=== PATIENT | male | born 1950 | race Caucasian/White ===

== ENCOUNTER → 2023-12-01 09:46 | Outpatient (REF) | payer MEDICARE, OTHER, SELFPAY | LOC: HWRAD 09:46 | PROVIDERS: ATTENDING PHYSICIAN Physician Assistant Medical; FAMILY PHYSICIAN Nurse Practitioner Adult Health; REFERRING PHYSICIAN Internal Medicine Gastroenterology | DX: Z86.010 Personal history of colon polyps (principal) | CPT/HCPCS: 74261 ==

== ENCOUNTER → 2024-02-09 09:05 | Outpatient (REF) | payer MEDICARE, OTHER, SELFPAY | LOC: HWRAD 09:05 | PROVIDERS: ATTENDING PHYSICIAN Nurse Practitioner Adult Health | DX: R91.1 Solitary pulmonary nodule (principal); J90 Pleural effusion, not elsewhere classified | CPT/HCPCS: 71260; Q9967 ==

== ENCOUNTER → 2024-02-13 13:39 | Outpatient (REF) | payer MEDICARE, OTHER, SELFPAY | LOC: RAD 13:39 | PROVIDERS: ATTENDING PHYSICIAN Surgery Vascular Surgery; FAMILY PHYSICIAN Family Medicine | DX: I73.9 Peripheral vascular disease, unspecified (principal); I65.23 Occlusion and stenosis of bilateral carotid arteries | CPT/HCPCS: 93880; 93922; 93925 ==

== ENCOUNTER → 2024-11-03 10:08 | Outpatient (REF) | payer MEDICARE, OTHER, SELFPAY ==
[2024-11-03 10:33] VITALS: BP 97/48; BP_SYST 66; BMI 31.7
[2024-11-03 11:40] LABS: Body Fluid Second Tech CF
== END ==
LOC: RADI 10:08
PROVIDERS: ATTENDING PHYSICIAN Internal Medicine Critical Care Medicine; FAMILY PHYSICIAN Student in an Organized Health Care Education/Training Program
DX: J90 Pleural effusion, not elsewhere classified (principal)
CPT/HCPCS: 32555; 71045; 82945; 83615; 84157; 87015; 87070; 87102; 87116; 87205; 87206; 88112; 88305; 89051

== ENCOUNTER 2024-11-12 01:36 | Inpatient (IN) | payer MEDICARE, OTHER, SELFPAY ==
[2024-11-11 23:49] VITALS: BP 90/53
[2024-11-11 23:51] VITALS: BP 90/53
[2024-11-12] VITALS (34 sets, daily range): BP systolic 83–108; BP diastolic 31–78; BMI 33.5; BMI 32.5
[2024-11-12] MEDS: PROTONIX IV 80 MG IV (00:11)
[2024-11-12] MEDS: PROTONIX 100 IV (00:12)
--- NOTE | 2024-11-12 00:18 | HPS.HSE ---
Family Physician
-
Family Physician: Shanel Mendenhall MD
Chief Complaint
-
No rectal bleeding
History of Present Illness
This is a 74-year-old male with past medical history significant CAD status post CABG and stenting on dual antiplatelet therapy, PAD status post left lower extremity stenting, V. tach on Amio and status post ICD, CHF with reduced EF, hypertension
presenting to the emergency department with 4 days of ongoing rectal bleeding.
Patient usually goes to [facility]. He reports that his been having intermittent bloody bowel movements over the last 3 to 4 days. He states that in particular today he had episode where he had large amounts of and tach red clots in his bowel
movement. Following that he had bright red blood per rectum while he was sitting on the commode. He denied any abdominal pain. He denies any nausea or vomiting. He has not been any recent melena. He denies any hematemesis. He denies history of
peptic ulcer disease. He denies history of lower GI bleed. He is on dual antiplatelet therapy but no other anticoagulation. Patient reported that he had a virtual colonoscopy about a year ago that was negative. He denies feeling dizzy or
lightheaded.
Reviewed the patient has been having a challenge with his respiratory status since his diagnosis for for pneumonia few months ago. He was at [facility] in August for pneumonia where he had a left lower lobe pneumonia associated with parapneumonic
effusion. He had a recent thoracentesis on the left with removal of noninfected fluid. Patient reports that he had about a 8 pound weight gain. He has been told during his recent cardiology visit that edema is likely secondary to pulmonary
insufficiency. Is former smoker quitting 30 years ago and never been diagnosed with COPD. He continues to have cough that is mostly nonproductive and was with supination. He denies dizziness or lightheadedness. He reports that his baseline blood
pressure also is usually in the 88-95 systolic.
Initial vital signs in the ED shows a blood pressure of 97/54, pulse rate of 65 and was satting 95% on room air.
Medical History
Past Medical History
Past Medical History: Reports Other
Additional Past Medical History:
hypertension
hyperlipidemia
type II diabetic mellitus
prostate cancer
Ventricular arrhythmia status post ICD
CAD status post AK, status post CABG x3
CHF with depressed EF
Past Surgical History: Reports Cardiac (CABG x 3, ICD implantation), Tonsilectomy and Other
Additional Past Surgical History:
left femoral endarterectomy with kissing bilateral iliac artery stents ()
Social History
Tobacco: Former Smoker
Alcohol: Former
Drug: None
Personal:
Living: With Family
Family History
Family History: Not pertinent
Allergies / Home Medications
Allergies reflects when Allergies were last updated in [facility].
Home Medications with original date entered in [facility]
Allergy/Medication List:
Allergies
Allergy/AdvReac Type Severity Reaction Status Date / Time
erythromycin base Allergy contraindicated Verified 03/05/19 08:52
(Erythromycin Base) (see
comment)
Home Medications
ascorbic acid (vitamin C) 500 mg tablet (Vitamin C) 500 mg PO DAILY Supplement 09/25/18
carvedilol 12.5 mg tablet 12.5 mg PO BID Blood pressure 09/25/18
spironolactone 25 mg tablet 25 mg PO DAILY Fluid retention/Swelling 09/25/18
clopidogrel 75 mg tablet 75 mg PO DAILY ##30 09/30/18
metformin 500 mg tablet,extended release 24 hr 500 mg PO BID Diabetes 07/21/20
aspirin 81 mg tablet,delayed release 81 mg PO HS Blood clot prevention/tx ##0 08/07/20
folic acid 400 mcg tablet 0.4 mg PO HS Supplement ##0 08/07/20
multivitamin with folic acid 400 mcg tablet (Tab-A-Petar) 1 tab PO HS Supplement ##0 08/07/20
albuterol sulfate 1.25 mg/3 mL solution for nebulization 1.25 mg inhalation DAILY 11/03/24
amiodarone 200 mg tablet (Pacerone) 200 mg PO DAILY 11/03/24
ferrous sulfate 325 mg (65 mg iron) capsule,extended release 325 mg PO DAILY 11/03/24
furosemide 20 mg tablet 40 mg PO DAILY 11/03/24
rosuvastatin 20 mg tablet 10 mg PO HS High cholesterol 11/03/24
sacubitril 24 mg-valsartan 26 mg tablet (Entresto) 1 tab PO BID 11/03/24
Review of Systems
-
History Source: Family
Constitutional: Reports No Symptoms
EENT: Reports No Symptoms
Respiratory: Reports Cough; Denies Hemoptysis or Trouble Breathing
Cardiac: Reports No Symptoms
Abdomen/GI: Reports Bloody Stools
: Reports No Symptoms
Musculoskeletal: Reports Edema
Skin: Reports No Symptoms
Neurological: Reports No Symptoms
Endocrine: Reports No Symptoms
Hematologic/Lymphatic: Reports No Symptoms
Psych: Reports No Symptoms
Physical Exam
Vital Signs
Vital Signs
Temp Pulse Resp BP Pulse Ox
98.2 F 65 19 97/54 95
11/11/24 23:51 11/12/24 00:00 11/12/24 00:00 11/12/24 00:00 11/12/24 00:00
Physical Exam
General: Appears Chronically Ill
HEENT: NormoCephalic, Anicteric, Moist mucous membranes and PERRLA; No Oxygen
Respiratory: Wheezes
Cardiac: S1/S2, Regular Rhythm and Peripheral Edema
Breast: Deferred by me
GI: Soft, Non Tender and Normal Bowel Sounds
Rectal: Red and Hem Positive
Genito-urinary: Deferred by me
Musculoskeletal: No Clubbing, No Cyanosis, Edema, Left Lower Extremity (2+) and Edema, Right Lower Extremity (2+)
Skin: Warm
Neuro: AO x 3 and Nonfocal/grossly intact
Psych: Calm
Data Reviewed
-
Lab Data: Labs Reviewed by me
Old Records: Reviewed
Impression/Plan
-
IMPRESSION:
74-year-old male with past medical history significant for CAD status post CABG and stenting, peripheral arterial disease status post stenting, on dual antiplatelet therapy, CHF with depressed EF and history of VT status post ICD on amiodarone, type
2 diabetes, chronic pulmonary hypertension, recent pneumonia with left-sided pleural effusion status post thoracenteses 8 days ago presented to the emergency department with bright red blood per rectum. Has heme positive red stool in the ED.
PLAN:
GI bleed -suspect lower GI bleed, patient blood pressure appears to be stable for him with systolics in the 90s which is his baseline. He is not tachycardic. Hemoglobin is 8.9. Bleeding seems to have been ongoing for the last 2 to 3 days. No
cardiac symptoms but does appear to be in chronic heart failure with ongoing decompensation typified by increasing weight and peripheral edema. Has some pancytopenia and his baseline hemoglobin was 10.2 in August. Elevated MCV with normal B12 folate
levels.
-Admit to IMU
-Type and screen
-He is getting transfused 1 unit
-Will keep on n.p.o. with sips of clears for now
- Hold aspirin and Plavix
- PPI IV twice daily
- H&H every 6
- GI consulted
CHF -chronic heart failure with EF of around 35% based on his last stress test. Total body volume overload with peripheral edema. He is wheezing and coughing likely secondary to COPD but cannot rule out CHF. Worsening CKD with a creatinine 3.0 up
from his last level of 1.9 in August. 8 pound weight gain over the last few weeks. Cardiology has reported this is secondary to his pulmonary hypertension rather than primary. His blood pressure tends to run on the low side which appears to limit
the degree of diuresis. I suspect worsening volume overloaded
- Will give Lasix 40 mg with blood transfusion and then prn
- Due to concern for ongoing bleed, holding Entresto, Lasix and aldactone for now
- Continue carvedilol with hold parameters
- Check x-ray for pulmonary edema
- BNP in a.m.
- cardiology consult (? cardiorenal)
CKD -creatinine 3.0 up from 1.92 months ago. Increasing volume suggestive of cardiorenal
- Holding Entresto/aldactone
- lasix with blood but otherwise holding for now
- daily weights
- once bleeding stabilized will need to try more aggressive diuresis as BP tolerates
Cough - COPD/Sequela of pna. Recently s/p thoracentesis which was transudative by lights
- xray
- supportive measures with mucinex, nebs
- continue nasal sprays
Microscopic hematuria - No signs of infection. With CKD, will get imaging to evaluate for obstructing stone/mass
- u/a, CT a/p w/o contrast
DVT PPX - SCDs
Code status - Full Code
--- NOTE | 2024-11-12 00:25 | ED.GENMED ---
History of Present Illness
General
Chief Complaint: Rectal Bleeding
Source: patient, family and ambulance crew
Exam Limitations: none
Time Seen by Provider: 11/11/24 23:48
Nursing documentation reviewed up to this point in time: agreed with
History of Present Illness
History of Present Illness:
74-year-old male presents to the emergency department with brisk rectal bleeding. Patient states that he has been having bright red blood per rectum for the last several days but tonight he stood up and locked large clots appeared per rectum.
Patient denies any abdominal pain. Denies fever, chills, nausea or vomiting. Patient is on Plavix and a baby aspirin. Denies previous rectal bleeding in the past.
Review of Systems
Review of Systems
Allergies reviewed?: Yes
All Other Systems: ROS reviewed and negative except as documented in HPI and ROS
Phy Exam
General Physical Exam
General Presentation: mild distress
General age: appears stated age
General Skin: warm and pale
General Habitus: elderly
General Mental: alert
Cardiovascular Exam
Cardiovascular Exam: systolic murmur
Pulmonary Exam
Pulmonary Exam: no respiratory distress and chest non tender
Cough: non productive cough
Respirations: mild increase in effort
Breath Sounds: Rhonchi: generalized
Gastrointestinal Exam
Gastrointestinal Exam: normal bowel sounds and non tender
Palpation: generalized: Minimal tenderness
Stool: maroon
Guaiac Status: grossly bloody - positive
Course
Orders/Labs/Results
Orders:
Orders
11/11/24 23:58
* Blood Bank Products Urgent
Blood Bank Products: *Packed RBC Leuko(PRBC's)
Quantity: 2
Transfuse Today: Yes
Reason: Bleeding
Cardiac Monitoring- Treatment ONCE
IV Insert/Care/Rem.- Treatment PRN
Complete Blood Count/With Diff Urgent
Comprehensive Metabolic Panel Urgent
Lipase Urgent
PTT Urgent
Prothrombin Time Urgent
Pantoprazole 80 mg/100 ml Nss [Protonix] 80 mg in 100 ml IV NOW
Pantoprazole [Protonix IV] 80 mg IV NOW STA
11/12/24 00:11
Pantoprazole [Protonix IV] 40 mg .ROUTE .STK-MED ONE
11/12/24 00:33
Type+Screen Urgent
BBK Wristband Number:
11/12/24 01:19
Chest X-ray Portable [CR Chest Portable - 1 View] Urgent
Comment:
Reason For Exam: Gi bleed, hx chf, hx thorcentesis
Reason Study Needs to be Portable: Patient Unstable
11/12/24 01:21
Admit/Transfer Patient As Directed
Co-Sign Provider:
Level of Care: Inpatient admission
Assign to:: IMU- Intermediate Care
Physician / Group: Loyda
Diagnosis: rectal bleeding
Reason for Hospitalization: rectal bleeding
Expected length of stay greater than two midnights?: Yes
ELOS- Estimated Length of Stay in days: 2
I certify the patient meets the requirements for IP care: Yes
PRN Pain Medication Management As Directed
May give lesser potent ordered pain med per pt: Yes
preference::
Protocol:: Medication orders for pain may be administered in a
manner that supports deferring to patient preference
when the pt is:
- Requesting an ordered lesser potent pain medication.
Least to most potent pain medications are defined
as: acetaminophen < NSAID < tramadol < opioids
(morphine, oxycodone, hydromorphone).
- Requesting a lesser dose of the same medication IF
ORDERED.
- Requesting a less intrusive route of administration
if both routes are prescribed by the provider (PO <
IV).
11/12/24 01:22
Code Status As Directed
Resuscitation Status: Full Code
11/12/24 03:37
Furosemide [Lasix] 40 mg IV ONCE ONE
Guaifenesin Solution [Robitussin] 200 mg PO Q4HPRN PRN
Sodium Chloride [Wolfe, Saline Mist] 2 sprays NASAL QIDPRN PRN
11/12/24 03:37
CARDIOLOGY CONSULT Routine
Consulting Provider: Stevenson Castillo
Was physician already notified: No
Reason for consult: CHF exacerbation
Consult Notification Routine
Specialty to Notify: Cardiology
Date consulting provider notified: 11/12/24
Time consulting provider notified: 10:29
Notified:: Provider
GASTROINTESTINAL CONSULT Routine
Consulting Provider: Vanessa Castorena
Was physician already notified: Yes
Activity As Directed
Activity Level: With Assistance
INT (Intravenous Needle Therapy) As Directed
Comment: Place 2 IV catheters of the largest bore possible until stable
Orthostatic Vital Signs As Directed
Orthostatic VS Frequency: Daily
Pneumatic Compression Sleeves As Directed
Type: Knee high
Vital Signs As Directed
Frequency: Per unit guidelines
DX Deep Vein Thrombosis Video Routine
11/12/24 Breakfast
NPO
Allow oral meds: Yes
Allow clear liquids: Sips of Clears
11/12/24 08:00
Albuterol Nebs [Ventolin Nebules] 1.25 mg INH R DAILY
Amiodarone [Pacerone] 200 mg PO DAILY
Carvedilol [Coreg] 12.5 mg PO BID
Pantoprazole [Protonix IV] 40 mg IV BID
11/12/24 11:29
Basic Metabolic Panel IN AM
Complete Blood Count/No Diff IN AM
Ferritin IN AM
H&H Q6H
Iron IN AM
NT-proBNP IN AM
Total Iron Binding IN AM
11/12/24 18:57
H&H Q6H
Abnormal Lab Results
11/12/24 11/12/24
00:04 00:33
RBC 2.57 L 10^6/uL
(4.70-6.10)
Hgb 8.9 L g/dL
(13.0-18.0)
Hct 26.5 L %
(39.0-52.0)
MCV 103.1 H fL
(80.0-94.0)
MCH 34.6 H pg
(27.0-31.0)
RDW 15.4 H %
(11.5-14.5)
Plt Count 98 L 10^3/uL
(130-400)
MPV 10.8 H fL
(7.4-10.4)
Absolute Lymphs (auto) 0.4 L 10^3/uL
(1.2-3.4)
Absolute Monos (auto) 0.9 H 10^3/uL
(0.1-0.6)
Lymphocytes % 7.2 L %
(20.5-51.1)
Monocytes % 14.9 H %
(1.7-9.3)
PT 15.9 H Sec
(11.4-14.6)
Sodium 130 L mmol/L
(135-145)
Potassium 5.3 H mmol/L
(3.5-5.1)
BUN 77 H mg/dl
(9-20)
Creatinine 3.0 H mg/dL
(0.7-1.3)
Glucose 115 H mg/dl
(70-99)
AST 112 H U/L
(17-59)
ALT 101 H U/L
(0-50)
Alkaline Phosphatase 143 H U/L
(38-126)
Albumin 3.4 L g/dl
(3.5-5.0)
Lipase 616 H U/L
(23-300)
Crossmatch IS Only See Detail See Detail
11/12/24 00:04
11/12/24 00:04
Vital Signs
Initial and Last Documented VS:
Initial Vital Signs
BP
90/53
11/11/24 23:49
Last Documented Vital Signs
Temp Pulse Resp BP Pulse Ox
98.1 F 65 21 108/55 96
11/16/24 19:00 11/16/24 21:14 11/16/24 18:00 11/16/24 21:14 11/16/24 22:05
*Pulse Oximetry
SaO2: 95
Oxygen Mode of Delivery: Room air
Patient hypoxic: no
*Critical Care Note
Total Time (30-74mins, 75-104mins- exclusive of procedures): 47
comment:
Critical care statement: A total of 47 minutes of critical care time was provided for this patient. This time is separate from time utilized to perform the aforementioned documented procedures. Aggregate critical care time includes only time
during which I was engaged in work directly related to the patient's care, as described above, whether at the bedside or elsewhere in the Emergency Department.
ED Attending Note
-
Portions of this chart may have been created with voice recognition software.� Occasional wrong word or��sound alike� substitutions may have occurred due to the inherent limitations of voice recognition software.
Discharge Plan
Departure
Patient Disposition: Admit
Date of Disposition: 11/12/24
Time of Disposition: 00:25
Admit to: ICU
Presentation/result/management discussed w/ accepting MD/DO: Hospitalist
Discharge Problem:
Rectal bleeding, Systolic CHF
Interventions
Interventions:
*Risk Screen - Suicide Last Done: 11/11/24 23:51
*General Assessment Last Done: 11/11/24 23:51
*Neglect/Abuse Screening Last Done: 11/11/24 23:51
*ED- Fall Risk Assessment Last Done: 11/12/24 00:07
*ED COVID-19 Vaccine History Last Done: 11/12/24 00:07
*Nursing Disposition Last Done: 11/12/24 02:59
DA-Vzpfef-Aarybswtpc Assessment Last Done: 11/11/24 23:59
ED- Cardiac Assessment Last Done: 11/11/24 23:59
ED- Pulmonary Assessment Last Done: 11/11/24 23:59
Discharge Date and Time
Discharge Date/Time: 11/12/24 03:00
[2024-11-12 00:27] LABS: Hematocrit 26.5 % (39.0-52.0); Hemoglobin 8.9 g/dL (13.0-18.0); Mean Corp Hgb Conc. 33.6 g/dL (33.0-37.0); Mean Corpuscular Volume 103.1 fL (80.0-94.0); Nucleated Red Blood Cells % 0 % (-); Platelet Count 98 10^3/uL (130-400); Red Cell Dist. Width 15.4 % (11.5-14.5)
[2024-11-12 00:33] LABS: INR 1.22; PT 15.9 Sec (11.4-14.6)
[2024-11-12 00:34] LABS: APTT 34.5 Sec (23.4-35.0)
[2024-11-12 00:35] LABS: ALT (SGPT) 101 U/L (0-50); AST (SGOT) 112 U/L (17-59); Albumin 3.4 g/dl (3.5-5.0); Alkaline Phosphatase 143 U/L (38-126); Blood Urea Nitrogen 77 mg/dl (9-20); Calcium 9.0 mg/dl (8.4-10.2); Carbon Dioxide 23 mmol/L (22-30); Chloride 100 mmol/L (98-107); Estimated Creatinine Clearance 26 ml/min; Glucose 115 mg/dl (70-99); Lipase 616 U/L (23-300); Potassium 5.3 mmol/L (3.5-5.1); Sodium 130 mmol/L (135-145); Total Protein 6.6 g/dl (6.3-8.2); eGFR 20.87
[2024-11-12] MEDS: DUONEB 3 ML INH (02:04)
[2024-11-12] MEDS: LASIX 40 MG IV ×2 (04:37→14:13)
--- NOTE | 2024-11-12 05:16 | PTCARENOTE ---
received pt from ED nurse. pt [id number] able to make needs known, at bedside. First unit PRBC started in ED. Second unit hung at 05:09. One time order 40mg IV lasix given with blood transfusion. Continuous PPI gtt. Pt with wheezes and moist
productive cough, c/o SOB (mostly after coughing fits), however SaO2 95% on RA. Abdomen round and distended, soft nontender, +bowel sounds, BRBPR noted upon arrival. Pt continent of bladder, voided in urinal, 350ml yellow urine, UA sent to lab. Pt
NPO with sips of clears. Ice chips given. Awaiting official read of CXR and abdomen/pelvis CT. AV paced on monitor with BBB. +3 blle edema. Small stage 2 pressure sore on sacrum cleaned and covered with a foam. VSS, afebrile. HR 60, 100% paced
beats. RR 18, SaO2 97 on RA. 2LNC placed on patient for comfort. BP soft, per this is his baseline. Most recent BP 98/63. Care ongoing.
[2024-11-12 05:58] LABS: Urine Character Slightly Cloudy (Clear)
[2024-11-12 06:03] LABS: Urine Squamous Cell None seen /LPF (Few)
[2024-11-12 06:06] LABS: Urine White Cell 0-2 /HPF (0-5)
[2024-11-12] MEDS: VENTOLIN NEBULES 1.25 MG INH (07:41)
--- NOTE | 2024-11-12 07:55 | CON.CAR ---
Addendum entered and electronically signed by Danyel Mathur MD 11/12/24 12:24:
I saw and evaluated the patient, and I provided the substantive portion of the medical decision making.
I reviewed and agree with the note by Lianne Mccarthy and it accurately reflects our care.
I personally performed the medical decision making of the this encounter and my assessment and plan is below:
74 year old male (follows with Dr. Damon) with ventricular tachycardia (on amiodarone, Medtronic ICD), coronary artery disease status post bypass, HFrEF, hypertension, hypercholesterolemia, PAD, cirrhosis of the liver, type 2 diabetes mellitus,
and prior prostate cancer presented to the emergency department with a chief complaint of BRBPR.
He has also been struggling with HF.
- Hold anti-platelets given active bleeding; from CAD perspective OK for single agent when OK from bleeding perspective VS may want 2?
- IV lasix 80 mg this afternoon
- GI to evaluate BRBPR
Original Note:
Consultation
Consultation Request
Date/Time Consultation Requested: 11/12/2024 03:35
Date/Time Consultation Performed: 11/12/2024 07:55
Requesting Provider: Dr. Scales
Performing Provider: ROCHELLE Duke for Dr. Mathur
Reason for Consultation: Acute on chronic HF
Medical History
-
Chief Complaint: Rectal bleeding
History of Present Illness:
Jonh Rodriguez is a 74 year old male (follows with Dr. Damon) with ventricular tachycardia (on amiodarone, Medtronic ICD), coronary artery disease status post bypass, HFrEF, hypertension, hypercholesterolemia, PAD, cirrhosis of the liver, type 2
diabetes mellitus, and prior prostate cancer presented to the emergency department with a chief complaint of BRBPR. He endorsed associated weakness. He has had bright red blood per rectum for at least three days. He has been evaluated by GI. He
is currently getting outpatient evaluation for thrombocytopenia. Cardiology was asked to consult as he is an acute on chronic heart failure. He has significant bilateral lower extremity edema. He had a thoracentesis 11/03/2024 for 1100 mL. His
left-sided pleural effusion has returned. He has been on furosemide for 'a long time'. He does not feel he is getting the same diuretic effect as he did in the past. He presented with an MARIA DOLORES. He was transfused with 1 unit of packed red blood
cells last night and given a dose of intravenous furosemide. Current laboratory studies are pending. He is currently chest pain-free. He endorses shortness of breath.
Past Medical History
Past Medical History: Arrhythmias (Ventricular tachycardia), CAD, Cancer (Prostate), CHF (DCM, HFrEF), HTN, Hypercholesterolemia, Hypothyroidism, NIDDM, [place] and Other (cirrhosis of the liver, PAD)
Past Surgical History: Cardiac and Tonsilectomy
Social History
Tobacco: Former Smoker
Living: With Family
Family History
Family History: Reviewed & Not Pertinent
Allergies / Home Medications
Allergy/AdvReac Type Severity Reaction Status Date / Time
erythromycin base Allergy contraindicated Verified 03/05/19 08:52
(Erythromycin Base) (see
comment)
�Medication �Instructions �Recorded �Confirmed �Type
ascorbic acid (vitamin C) 500 mg 500 mg PO DAILY Supplement 09/25/18 11/12/24 History
tablet (Vitamin C)
carvedilol 12.5 mg tablet 12.5 mg PO BID Blood pressure 09/25/18 11/12/24 History
spironolactone 25 mg tablet 25 mg PO DAILY Fluid 09/25/18 11/12/24 History
retention/Swelling
clopidogrel 75 mg tablet 75 mg PO DAILY ##30 09/30/18 11/12/24 Rx
metformin 500 mg tablet,extended 500 mg PO BID Diabetes 07/21/20 11/12/24 History
release 24 hr
aspirin 81 mg tablet,delayed 81 mg PO HS Blood clot 08/07/20 11/12/24 Rx
release prevention/tx ##0
folic acid 400 mcg tablet 0.4 mg PO HS Supplement ##0 08/07/20 11/12/24 Rx
multivitamin with folic acid 400 1 tab PO HS Supplement ##0 08/07/20 11/12/24 Rx
mcg tablet (Tab-A-Petar)
albuterol sulfate 1.25 mg/3 mL 1.25 mg inhalation DAILY 11/03/24 11/12/24 History
solution for nebulization
amiodarone 200 mg tablet (Pacerone) 200 mg PO DAILY 11/03/24 11/12/24 History
ferrous sulfate 325 mg (65 mg 325 mg PO DAILY 11/03/24 11/12/24 History
iron) capsule,extended release
furosemide 20 mg tablet 40 mg PO DAILY 11/03/24 11/12/24 History
rosuvastatin 20 mg tablet 10 mg PO HS High cholesterol 11/03/24 11/12/24 History
sacubitril 24 mg-valsartan 26 mg 1 tab PO BID 11/03/24 11/12/24 History
tablet (Entresto)
Review of Systems
-
History Source: Patient
All other systems: Negative unless noted
Constitutional: Fatigue
EENT: No Symptoms
Respiratory: No Symptoms
Cardiac: No Symptoms
Abdomen/GI: Bloody Stools
: No Symptoms
Musculoskeletal: Edema
Skin: No Symptoms
Neurological: No Symptoms
Endocrine: No Symptoms
Hematologic/Lymphatic: No Symptoms
Physical Exam
Vital Signs
Temp Pulse Resp BP Pulse Ox
97.3 F 60 19 98/63 97
11/12/24 05:24 11/12/24 07:42 11/12/24 07:42 11/12/24 05:24 11/12/24 07:42
Physical Exam
General: Well Developed, Well Nourished and No Apparent Distress
HEENT: Normocephalic and Anicteric
Respiratory: Crackles and Accessory Resp Muscle Use
Cardiac: S1/S2, Regular Rhythm and Peripheral Edema (+3 pitting edema past knees)
Breast: Deferred by me
GI: Soft, Non Distended and Normal Bowel Sounds
Genito-urinary: No Costovertebral Tender
Musculoskeletal: No Clubbing and No Cyanosis
Skin: Warm and Dry
Neuro: Awake and Alert
Hematologic/Lymphatic: No Lymphadenopathy
Psych: Calm
Impression / Plan
-
I/P: 74M with ventricular tachycardia (on amiodarone, Medtronic ICD), coronary artery disease status post bypass, HFrEF, hypertension, hypercholesterolemia, PAD, cirrhosis of the liver, type 2 diabetes mellitus, and prior prostate cancer presented
to the emergency department with a chief complaint of BRBPR.
Primary Newspaper Vendor: Dr. Damon ([facility])
HFrEF, acute on chronic
Ischemic cardiomyopathy (LVEF here 35-40% in 2020, will obtain updated TTE)
- Status post intravenous furosemide in the emergency room, hold further diuresis until lab result
- He appears volume overloaded on exam with +3 pitting bilateral lower extremity edema and a left pleural effusion on CXR
- Dry weight is at least 219 pounds per thoracentesis presentation, he reports having weight of 215 at home after most recent hospitalization
-GDMT as tolerated:
-KYLER/ARB/ARNI: Entresto on hold with MARIA DOLORES
-SGLT2 inhibitor: None with MARIA DOLORES
-Aldosterone agonist: Spironolactone on hold with MARIA DOLORES
-Beta hemant: Carvedilol 12.5 mg twice daily
-Isosorbide/Hydralazine:�
-ICD: Implanted (Medtronic)
- Echocardiogram today
-Trend daily weight, I/O, and BMP with diuresis
-HF education
Pleural effusion, left
- Moderate on CXR in ER
- Status post left thoracentesis 11/03/2024 for 1100 mL -transudative by lights
MARIA DOLORES
- BUN 35, creatinine 1.9 in August during his hospitalization at [facility], his Entresto dose was decreased during that hospitalization
Anemia, type unknown, acute on chronic
- H/H ~12/31 while he was in [facility]
- DAPT on hold, after evaluation by GI cardiology is okay with single agent
CAD, s/p CABG
- Stable without chest pain
- Cardiac PET last month consistent with inferior and apical scar. No reversible defects.
Ventricular tachycardia
- On amiodarone, continue
- Medtronic ICD
Type 2 diabetes mellitus, per primary service
Thrombocytopenia, chronic, platelets 109 at discharge from [facility]
Cirrhosis of the liver, follows with Dr. Butt
PAD, follows with Iftikhar Cano femoral endarterectomy (2019), chronically occluded superficial femoral arteries bilaterally
Carotid artery stenosis, high-grade, >90% bilaterally, followed by Vascular
[facility]
SUBJECTIVE:
As above.
Data Reviewed
-
EKG: Report Reviewed by me
Radiology: Report Reviewed by me
Medical Tests (Nuc Med, Echo etc): Report Reviewed by me
Labs: Labs Reviewed by me
Old Records: Reviewed
--- NOTE | 2024-11-12 08:04 | PTCARENOTE ---
On walking rounds ,pt is AAOx3 PRBC infusing via pump at 75 ml/hr. Pt has moist harsh cough. Protonix gtt continues. ACV paced . NPO with sips of clears. at bedside
[2024-11-12] MEDS: PACERONE 200 MG PO (08:43)
[2024-11-12] MEDS: COREG 12.5 MG PO ×2 (08:44→20:25)
[2024-11-12] MEDS: MUCINEX 600 MG PO ×2 (08:48→20:24)
[2024-11-12] MEDS: PROTONIX IV 40 MG IV ×2 (09:00→20:25)
[2024-11-12] MEDS: NSS (PRESERVATIVE FREE) 10 ML IV ×2 (09:00→20:25)
--- NOTE | 2024-11-12 10:01 | CON.GI ---
Addendum entered and electronically signed by Vanessa Castorena MD 11/12/24 21:35:
I saw and examined the patient.
The VOCATIONAL NURSE LVN or PA's note was reviewed and I agree with the note.
Comment: 74-year-old male with complicated medical history including history of CAD/CABG, peripheral vascular disease on aspirin and Plavix, history of V. tach status post ICD, history of congestive heart failure with low EF, diabetes, history of
elevated liver enzymes (followed by Dr. Butt at [facility]) presenting with rectal bleeding that occurred 3 days ago. In reviewing history, patient has recent diagnosis of anemia, thrombocytopenia, has been following up with hematology with IV
iron infusions. As per patient, he has seen Dr. Butt couple of months ago, was asked to get upper endoscopy to evaluate for varices, no previous history of GI bleeding. Virtual colonoscopy in 2023 unremarkable but previous history of colonoscopy
with 1 polyp removed 7 years ago or so. As per , patient had chronic cough, treated with multiple courses of antibiotics, had left pleural effusion needing thoracentesis, and volume overload as well.
Reviewing his labs, his hemoglobin is between 9 and 10, platelets around 80-90, INR of 1.2, sodium of 131, creatinine elevated at 2.8, AST of 112, ALT of 101, alkaline phosphatase of 143, albumin of 3.4 and ammonia of 97
Abdominal CAT scan showing small amount of peritoneal ascites, nodular contour of the liver suggesting hepatic cirrhosis, splenomegaly noted.
No significant alcohol use
-Cirrhosis of the liver noted on recent imaging-r/o MASLD vs +/- cardiac cirrhosis
Given volume overload and acute elevation in creatinine, MELD 3.0 score is going to be higher-25
Currently patient is being diuresed, will monitor creatinine closely, if trending up, consider nephrology evaluation
Will check alpha-fetoprotein
If there is enough ascites, could check SAAG, total protein in the ascitic fluid to r/o cardiac ascites
2 g sodium Diet
Daily weight
Monitor electrolytes and replete
Currently on carvedilol which would be beneficial if there is any esophageal varices
He will need to follow-up with Dr. Butt, his primary allied health professional for an endoscopy in the future
Patient started on lactulose 20 g twice a day for mild asterixis though he is completely alert and oriented. Will decrease the dose if loose stool
- Rectal bleeding he does have
Mild constipation which could contribute to rectal bleed especially on Plavix
Will monitor bowel movements, H&H
On lactulose, he showed start moving his bowels
Monitor for any evidence of overt bleeding
Plavix is on hold since admission
Will follow
To rule out varices
Original Note:
Consultation
-
Date/Time Consultation Requested: 11/12/24336
Date/Time Consultation Performed: 11/12/24929
Requesting Provider: Dr. Scales
Performing Provider: Dr. Castorena/ROCHELLE Lopez
Reason for Consultation: rectal bleeeding
Medical History
Chief Complaint / HPI
Chief Complaint: rectal bleeding
History of Present Illness:
74-year-old male with past medical history CAD status post CABG x 3, PAD left femoral endarterectomy with bilateral iliac artery stents (2019) on aspirin and Plavix, V. tach on Amio status post ICD, CHF with reduced EF, hypertension, diabetes,
hyperlipidemia, prostate cancer status post XRT, pneumonia, left-sided effusion recent diagnosis of anemia with thrombocytopenia that was being worked up as an outpatient by hematology status post iron infusion who presents to the emergency room
with 4-day history of rectal bleeding. Asked to evaluate for the same. The patient states that approximately 4 days ago he started having some bright red blood per rectum on the tissue and in the bowl. This was a small amount. 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
started to get station manager and then yesterday he started to have some darker amount of blood but this was more maroon color. He did state that there were some clots in it. He does strain on occasion to have bowel movements. He does have a cough, he
is also had some increased shortness of breath. He had an episode of red blood overnight. None further for nursing this morning. The patient states that approximately 4 weeks ago he had his Lasix increased because he was retaining fluid in his
lower legs, he was also placed on had an adjustment in his carvedilol. He is followed as an outpatient by Dr. Butt with [facility]. He states that he had decreased platelets and anemia. Had an outpatient ultrasound and was also seen by
hematology (Dr. Salomon). The patient and his states that he has had elevated liver function test for 'years'. And that they thought it could be secondary to his amiodarone. He had a history of social drinking in the past however quit this
when he has been on amiodarone for the past couple years. Dr. Butt wanted to perform an EGD to look for varices. He last saw Dr. Butt approximately 6 weeks ago. He had a virtual colonoscopy performed approximately 1 year ago, he states it was
done virtually because of his aspirin and Plavix status and that if anything was found abnormal they would proceed with endoscopic colonoscopy. They state that this was negative. His last endoscopic colonoscopy was approximately 8 years ago. Per
their recollection this was negative. Labs WBC 5.7, hemoglobin 8.9, hematocrit 26.5, platelets 98. Repeat CBC pending. PT 15.9, INR 1.22, sodium 130, potassium 5.3, BUN 77, creatinine 3.0, glucose 115, iron studies pending, total bilirubin 1.2,
AST 112, ALT 101, alk phos 143, proBNP pending, albumin 3.4, lipase 616. Chest x-ray shows left pleural effusion and cardiomegaly. CT of the abdomen and pelvis without oral or IV contrast shows small amount of peritoneal ascites, new compared to
CT 12/01/2023. Nodular contour liver suggesting hepatic cirrhosis. Liver is hyperattenuating relative to the spleen which may be seen in the setting of hemochromatosis. Mando's, glycogen storage disease or drug toxicities. Splenomegaly. Left
pleural effusion, partially imaged. Left lower lobe consolidation which may represent atelectasis or pneumonia.
Past Medical History
Past Medical History: Other (CAD status post CABG, PAD, ICD, CHF with reduced EF, diabetes, hyperlipidemia, hypertension, prostate cancer status post XRT, pneumonia, left pleural effusion, anemia, thrombocytopenia, cirrhosis)
Past Surgical History: Other (CABG x 3, ICD, tonsillectomy, left femoral endarterectomy bilateral iliac artery stents)
Social History
Tobacco: Former Smoker
Alcohol: Former
Drug: None
Personal:
Living: With Family
Employment: Retired
Family History
Family History: Other (No family history of gastrointestinal malignancy or IBD)
Allergies / Home Medications
Allergy/AdvReac Type Severity Reaction Status Date / Time
erythromycin base Allergy contraindicated Verified 03/05/19 08:52
(Erythromycin Base) (see
comment)
�Medication �Instructions �Recorded
ascorbic acid (vitamin C) 500 mg 500 mg PO DAILY Supplement 09/25/18
tablet (Vitamin C)
carvedilol 12.5 mg tablet 12.5 mg PO BID Blood pressure 09/25/18
spironolactone 25 mg tablet 25 mg PO DAILY Fluid 09/25/18
retention/Swelling
clopidogrel 75 mg tablet 75 mg PO DAILY ##30 09/30/18
metformin 500 mg tablet,extended 500 mg PO BID Diabetes 07/21/20
release 24 hr
aspirin 81 mg tablet,delayed 81 mg PO HS Blood clot 08/07/20
release prevention/tx ##0
folic acid 400 mcg tablet 0.4 mg PO HS Supplement ##0 08/07/20
multivitamin with folic acid 400 1 tab PO HS Supplement ##0 08/07/20
mcg tablet (Tab-A-Petar)
albuterol sulfate 1.25 mg/3 mL 1.25 mg inhalation DAILY 11/03/24
solution for nebulization
amiodarone 200 mg tablet (Pacerone) 200 mg PO DAILY 11/03/24
ferrous sulfate 325 mg (65 mg 325 mg PO DAILY 11/03/24
iron) capsule,extended release
furosemide 20 mg tablet 40 mg PO DAILY 11/03/24
rosuvastatin 20 mg tablet 10 mg PO HS High cholesterol 11/03/24
sacubitril 24 mg-valsartan 26 mg 1 tab PO BID 11/03/24
tablet (Entresto)
Review of Systems
-
All other systems: A 12 pt ROS was Negative except as stated above in HPI
Vital Signs
Temp Pulse Resp BP Pulse Ox
97.7 F 60 14 102/52 97
11/12/24 08:30 11/12/24 08:43 11/12/24 08:30 11/12/24 08:43 11/12/24 08:00
Physical Exam
Exam
General: Other (Appears chronically ill, cough)
HEENT: Anicteric
Respiratory: Wheezes (Bilateral)
Cardiac: Regular Rhythm
GI: Soft, Non Tender, Normal Bowel Sounds and Distended (ascites)
Rectal: Other (No external hemorrhoids, dried blood red external skin, no masses appreciated on rectal exam, scant amount of red blood on rectal, no stool appreciated)
Musculoskeletal: Edema (Bilateral lower extremity edema)
Skin: Warm and Dry
Neuro: Awake, Alert, Oriented and Other (Positive asterixis)
Psych: Calm
Results
WBC 5.7 10^3/uL (4.8-10.8) 11/12/24 00:04
Hgb 8.9 g/dL (13.0-18.0) L 11/12/24 00:04
Hct 26.5 % (39.0-52.0) L 11/12/24 00:04
MCV 103.1 fL (80.0-94.0) H 11/12/24 00:04
Plt Count 98 10^3/uL (130-400) L 11/12/24 00:04
Absolute Neuts (auto) 4.3 10^3/uL (1.4-6.5) 11/12/24 00:04
PT 15.9 Sec (11.4-14.6) H 11/12/24 00:04
INR 1.22 11/12/24 00:04
APTT 34.5 Sec (23.4-35.0) 11/12/24 00:04
Sodium 130 mmol/L (135-145) L 11/12/24 00:04
Potassium 5.3 mmol/L (3.5-5.1) H 11/12/24 00:04
Chloride 100 mmol/L (98-107) 11/12/24 00:04
Carbon Dioxide 23 mmol/L (22-30) 11/12/24 00:04
BUN 77 mg/dl (9-20) H 11/12/24 00:04
Creatinine 3.0 mg/dL (0.7-1.3) H 11/12/24 00:04
Calcium 9.0 mg/dl (8.4-10.2) 11/12/24 00:04
Total Bilirubin 1.2 mg/dl (0.2-1.3) 11/12/24 00:04
AST 112 U/L (17-59) H 11/12/24 00:04
ALT 101 U/L (0-50) H 11/12/24 00:04
Alkaline Phosphatase 143 U/L (38-126) H 11/12/24 00:04
Lipase 616 U/L (23-300) H 11/12/24 00:04
Diagnostic Image Results:
CT abdomen and pelvis without oral or IV contrast:
1. Small amount of peritoneal ascites, new compared to prior CT dated 12/01/2023.
2. Nodular contour of the liver, suggestive of hepatic cirrhosis.
3. Liver is hyperattenuating relative to the spleen, which may be seen in the setting of hemachromatosis, Mando's disease, glycogen storage disease, or drug toxicity.
4. Splenomegaly.
5. Left pleural effusion, partially imaged. Left lower lobe consolidation, which may represent atelectasis or pneumonia.
Chest x-ray:
Moderate left pleural effusion.
Cardiomegaly.
Prior GI Procedures:
EGD: Never
Colonoscopy: Approximately 8 years ago (Geovanna BEARDEN) 'okay', records not available to us
Virtual colonoscopy 12/01/2023:
No clinically significant polyps are identified.
Tiny pulmonary nodules measuring 4 mm and 3 mm. Initial step for further evaluation recommended with follow-up chest CT.
Small right pleural effusion also noted.
Assessment / Plan
-
74-year-old male with past medical history CAD status post CABG x 3, PAD left femoral endarterectomy with bilateral iliac artery stents (2019) on aspirin and Plavix, V. tach on Amio status post ICD, CHF with reduced EF, hypertension, diabetes,
hyperlipidemia, prostate cancer status post XRT, pneumonia, left-sided effusion recent diagnosis of anemia with thrombocytopenia that was being worked up as an outpatient by hematology status post iron infusion who presents to the emergency room
with 4-day history of rectal bleeding. Asked to evaluate for the same. The patient states that approximately 4 days ago he started having some bright red blood per rectum on the tissue and in the bowl. This was a small amount. 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
started to get station manager and then yesterday he started to have some darker amount of blood but this was more maroon color. He did state that there were some clots in it. He does strain on occasion to have bowel movements. He does have a cough, he
is also had some increased shortness of breath. He had an episode of red blood overnight. None further for nursing this morning. Presentation WBC 5.7, hemoglobin 8.9, platelets 98. Repeat pending. Did have 1 episode of red blood overnight.
None further. Patient was transfused 2 units PRBC this am. Awaiting repeat labs. Discussed with nursing. Rectal exam performed by myself without any external hemorrhoids, no obvious masses, dried blood on the outside of his skin. Scant red blood
on rectal exam. Patient had a virtual colonoscopy 01/2024 that was negative. His last endoscopic colonoscopy was approximately 8 years ago that was 'normal' per patient. Records unavailable to us. He has never had an endoscopy before. He is
followed by Dr. Daquan BEARDEN for elevated LFTs He had a recent ultrasound records unavailable to us. Although Dr. Pickard wanted him to have an upper endoscopy to rule out varices when he saw him approx 6 weeks ago. He has had increasing lower
extremity edema prompting increase in Lasix by cardiology. CT imaging here confirming cirrhosis. The patient does have a history of prostate cancer status post XRT however with no prior history of rectal bleeding in the past. Recent consult by
[facility] for low Hgb and PLT per . Had iron per . Patient has also been a little 'sleepy' past couple days which thought from back pain. Patient has some asterixis on exam. He is AAO x3.
Impression:
Lower GI bleed-> scant rectal bleeding on rectal, no obvious mass, hemorrhoid or rectal varices identified.
-> Hx prostate Ca s/p XRT
-> Virtual [place] 01/2024, last endoscopic colonoscopy 8 yrs ago per patient/, (held off secondary to comorbidities and ASA/Plavix)
Cirrhosis on CT Imaging, followed by Dr. Butt-> There was talks of EGD to r/p varices 6 weeks ago based on US, therefore likely seen on imaging at that time as well as thrombocytopenia and chronic elevated LFTs. Was told about probable progression
in past.
Ascites
Asterixis
HFrEF hx VT with ICD
AMRIA DOLORES on CKD
Elevated Lipase, likely secondary to increased renal function as patient without any abd pain or signs of pancreatitis.
Left pleural effusion
Plan:
-Ok to change PPI to BID
-Trend CBC, BMP, LFTs, INR
-Await Cardiology consultation
-Check Ammonia level
-Consider Renal consultation
-[facility].
-If with active bleeding would need Nuc Med bleeding Scan given Renal function at present time.
-ASA and Plavix on hold, Ok from GI perspective to resume ASA. Hx of stents and CAD
-Further recommendations to be forthcoming.
-
-
Thank you for consultation and allowing me to participate in the patient's care. Please call the senior electronics design engineer GI physician during the after hours with any questions or concerns.
[2024-11-12 11:42] LABS: Hematocrit 26.8 % (39.0-52.0); Hemoglobin 9.0 g/dL (13.0-18.0)
[2024-11-12 11:51] LABS: Ammonia 97 umol/L (9-30)
[2024-11-12 11:57] LABS: Hematocrit 27.2 % (39.0-52.0); Hemoglobin 9.1 g/dL (13.0-18.0); Mean Corp Hgb Conc. 33.5 g/dL (33.0-37.0); Mean Corpuscular Volume 97.5 fL (80.0-94.0); Platelet Count 80 10^3/uL (130-400); Red Cell Dist. Width 17.2 % (11.5-14.5)
--- NOTE | 2024-11-12 11:57 | CM ---
Initial Assessment Completed By SWEETIE Godfrey.
Patient lives at home with his who was present today in a 2 Story House with 2 steps to enter, regular flight of stairs inside, & bathroom on the 1st & 2nd floor.
Patient uses no devices at home, was outpatient with [facility]' for PT.
PCP: Dr. Shanel Mendenhall
Pharmacy: [facility]
Patient is on oxygen right now & not at home.
Patient has transportation home when ready. Case Management to follow if there are needs.
PLAN: Likely Home No Needs
[2024-11-12 12:10] LABS: Blood Urea Nitrogen 71 mg/dl (9-20); Calcium 8.4 mg/dl (8.4-10.2); Carbon Dioxide 23 mmol/L (22-30); Chloride 103 mmol/L (98-107); Estimated Creatinine Clearance 27 ml/min; Glucose 104 mg/dl (70-99); Iron 102 ug/dl (49-181); Potassium 5.1 mmol/L (3.5-5.1); Sodium 131 mmol/L (135-145); eGFR 22.67
[2024-11-12 12:20] LABS: Total Iron Binding Capacity 309 ug/dl (261-462)
[2024-11-12 12:41] LABS: Ferritin 96.1 ng/ml (17.9-464.0)
--- NOTE | 2024-11-12 12:53 | PTCARENOTE ---
Report to Flo ROJAS
--- NOTE | 2024-11-12 13:37 | W.PN.UPDATE ---
Update Note
Progress Note Update
Seen and examined the patient. Agree with plan set forth by the resident. See changes in my documentation.
74-year-old male with bleeding per rectum
CT abdomen and pelvis-small amount of peritoneal ascites. Nodular contour of the liver suggesting hepatic cirrhosis. Splenomegaly. No pleural effusion partially imaged. Left lower lobe consolidation represent atelectasis or pneumonia
Chest [id number] left pleural effusion. Cardiomegaly
CVS: S1-S2 normal
Chest: decreased on the left side
Abdomen: Soft, NT / Bowel sounds present
Extremities: B/L LE edema
TELEPHONE LINEMAN: Non focal exam
# GI bleed
Likely lower GI
Blood pressure was low but patient usually runs low
Hemoglobin 8.9.
Type and screen-got 1 unit of PRBC
N.p.o. with sips of clears
Hold aspirin and Plavix, restart ASA if OK with GI
Continue PPI
GI consultation
# Left pleural effusion with thoracentesis on 11-03--1100 cc of serosanguineous fluid-transudate. Negative for malignant cells.
Continue with Lasix. Repeat chest x-ray on Friday if continues to have moderate to large effusion then can do thoracentesis
# Thrombocytopenia-new. Follow hold antiplatelets
# Acute on chronic HFrEF
Ischemic cardiomyopathy
8 pound weight gain
proBNP pending
Lasix IV one dose today
Hold Entresto and Aldactone
Continue Coreg
Cardiology consultation
# Coronary disease with history of stent, CABG in 1994
# Ventricular tachycardia, ventricular fibrillation
On Amio
S/P-BiV ICD/pacer original placement 2007 with revision generator changed in 2013
# Pulmonary hypertension
# MARIA DOLORES on CKD
Possibly cardiorenal
Hold Entresto ,Metformin and Aldactone
Lasix as needed
# Hyponatremia and hyperkalemia-follow labs with Lasix
# Hyperlipidemia- Statin
# Elevated AST and ALT-likely secondary to fluid overload. Follow-up with Lasix
# Cough /chronic COPD
Possible bronchitis-continue Mucinex
# Microscopic pneumaturia. OP Urology F/U
History of nephrolithiasis
History of prostate cancer with history of radiation
CT-No nephrolithiasis or hydronephrosis on either side. No aggressive renal mass appreciated. The ureters are nondilated.The prostate gland is within normal limits.No significant bladder wall thickening or adjacent fat stranding.
# Peripheral artery disease
# LBBB
# Ex Smoker
# DVT prophylaxis-SCDs
# Full code
D/W at bed side
D/W RN
D/W Speech
D/W GI
D/W cards at bed side
Part of this note was created using voice recognition system. Occasional wrong word or��sound alike� substitutions may have inadvertently occurred due to the inherent limitations of voice recognition software. If noted kindly bring it to my
attention for correction.
time over 50 min
--- NOTE | 2024-11-12 16:25 | PTCARENOTE ---
Received patient from day shift RN. Patient resting comfortably in bed. AAO, VSS. No complaints of pain. One time dose of lasix ordered IV. Patient to get OOB to chair. Call ralph in reach.
--- NOTE | 2024-11-12 17:22 | PTOTSP ---
Speech Therapy Swallow Evaluation
Swallow evaluation limited to clear liquid due to suspected GI bleed. Patient tolerated thin liquid without overt signs of aspiration. Suspect patient will tolerate solids once cleared for intake.
Recommend
1. Thin liquids.
2. Solids per GI.
3. Meds with liquids.
ST can assess for solids once cleared but do not anticipate patient will have difficulty with such.
--- NOTE | 2024-11-12 17:25 | W.PN.HOSP.TC ---
Today's Communication/Plan
-
Echo: EF 35%. Severely dilated LV with moderately reduced systolic function. Mild to moderate tricuspid regurgitation; estimated PASP of 33 mmHg
Lasix IV 1 dose.
Repeat chest x-ray on Friday if continues to have moderate to large effusion then can do thoracentesis
Consult cardiology and gastroenterology
Assessment / Plan
Assessment / Plan
Impression
Mr. Jonh Rodriguez is a 74-year-old male with past medical history significant for CAD status post CABG and stenting, peripheral arterial disease status post stenting, on dual antiplatelet therapy, CHF with depressed EF and history of VT status post
ICD on amiodarone, type 2 diabetes, chronic pulmonary hypertension, recent pneumonia with left-sided pleural effusion status post thoracenteses 8 days ago presented to the emergency department with bright red blood per rectum. Has heme positive red
stool in the ED.
Plan
# GI bleed - blood pressure appears to be stable for him with systolics in the 90s which is his baseline. Elevated MCV with normal B12 folate levels.
Likely lower GI
Blood pressure was low but patient usually runs low
Hemoglobin 8.9. baseline hemoglobin was 10.2 in August.
Type and screen-got 1 unit of PRBC
�N.p.o. with sips of clears
Hold aspirin and Plavix, restart ASA if OK with GI
Continue PPI
�GI consultation
# Left pleural effusion with thoracentesis on 11-03--1100 cc of serosanguineous fluid-transudate. Negative for malignant cells.
Continue with Lasix. Repeat chest x-ray on Friday if continues to have moderate to large effusion then can do thoracentesis
# Thrombocytopenia-new. Follow hold antiplatelets
# Acute on chronic HFrEF
Ischemic cardiomyopathy
8 pound weight gain
proBNP pending
Lasix IV one dose today
Hold Entresto and Aldactone
Continue Coreg
Cardiology consultation
:: Echo: EF 35%. Severely dilated LV with moderately reduced systolic function. Mild to moderate tricuspid regurgitation; estimated PASP of 33 mmHg
# Coronary disease with history of stent, CABG in 1994
# Ventricular tachycardia, ventricular fibrillation
On Amio
S/P-BiV ICD/pacer original placement 2007 with revision generator changed in 2013
# Pulmonary hypertension
# MARIA DOLORES on CKD
Possibly cardiorenal
Hold Entresto ,Metformin and Aldactone
Lasix as needed
# Hyponatremia and hyperkalemia-follow labs with Lasix
# Hyperlipidemia- Statin
# Elevated AST and ALT-likely secondary to fluid overload. Follow-up after Lasix
# Cough /chronic COPD
Possible bronchitis-continue Mucinex
# Microscopic pneumaturia. OP Urology F/U
History of nephrolithiasis
History of prostate cancer with history of radiation
CT-No nephrolithiasis or hydronephrosis on either side. No aggressive renal mass appreciated. The ureters are nondilated.The prostate gland is within normal limits.No significant bladder wall thickening or adjacent fat stranding.
# Peripheral artery disease
# LBBB
# Ex Smoker
DVT prophylaxis-SCDs
Full code
Anticipated Discharge: > 48 hours
Subjective/Interval History
-
Date of Service: November 12, 2024
No acute events overnight. Patient endorsed continued to have dark red bowel movements. He denied lightheadedness/dizziness, and said he had not felt like that at home either scratched.
Objective Data
-
Labs:
Laboratory Results
11/12/24 11/12/24 11/12/24
11:29 11:29 11:29
WBC 4.7 L
Hgb 9.1 L 9.0 L
Hct 27.2 L 26.8 L
Plt Count 80 L
Sodium 131 L
Potassium 5.1
Chloride 103
Carbon Dioxide 23
BUN 71 H
Creatinine 2.8 H
Glucose 104 H
Calcium 8.4
Vital Signs:
Vital Signs
Temp Pulse Resp BP Pulse Ox
98.8 F 60 22 103/51 96
11/12/24 16:00 11/12/24 14:13 11/12/24 12:45 11/12/24 14:13 11/12/24 12:45
I&O
11/11/24 11/12/24 11/13/24
06:59 06:59 06:59
Intake Total 870 / 870 250 / 250
Output Total 350 / 350 200 / 200
Balance 520 / 520 50 / 50
Review of Systems
-
History Source: Patient and Family
Constitutional: Reports No Symptoms
EENT: Reports No Symptoms Reported
Respiratory: Reports No Symptoms
Cardiac: Reports No Symptoms
Abdomen/GI: Reports Bloody Stools; Denies Vomiting, Black Stools or Hematemesis
Genitourinary: Reports No Symptoms
Musculoskeletal: Reports Muscle Weakness (Legs feel weak/heavy when climbing up a denies stairs to his second floor)
Skin: Reports No Symptoms
Neuro: Reports No Symptoms
Physical Exam
-
General: Well Developed, Well Nourished, No Apparent Distress and Comfortable
HEENT: Normocephalic, Atraumatic, Anicteric, Nose Appears Normal and Ears Appear Normal
Respiratory: Clear to Auscultation
Cardiac: Regular Rhythm and S1/S2
GI: Soft, Nontender, Nondistended and Normal Bowel Sounds
Musculoskeletal: No Clubbing and No Cyanosis
Skin: Warm and Dry
Neuro: Awake, Alert and Oriented
Psych: Calm
Data Reviewed
-
Total Time Spent with Patient (in minutes): 35
Diagnostic Radiology: Report Reviewed by me
CT Scan: Report Reviewed by me
Medical Tests (Nuc Med, Echo etc): Image personally visualized and interpreted
Labs: Labs Reviewed by me
[2024-11-12 19:15] LABS: Hematocrit 28.5 % (39.0-52.0); Hemoglobin 9.7 g/dL (13.0-18.0)
[2024-11-12 19:40] LABS: Glucose - Point of Care 101 mg/dl (70-99)
[2024-11-12] MEDS: DUPHALAC/CHRONULAC 20 GRAMS PO (20:24)
[2024-11-12] MEDS: ASPIR LOW (ENTERIC COATED) 81 MG PO (20:24)
[2024-11-12] MEDS: XIFAXAN 550 MG PO (20:24)
[2024-11-12] MEDS: CRESTOR 10 MG PO (20:24)
[2024-11-13] VITALS (26 sets, daily range): BP systolic 75–113; BP diastolic 34–82; BMI 32.2
--- NOTE | 2024-11-13 02:24 | PTCARENOTE ---
Pt desatting to 85% on RA, 2LNC applied, SaO2 96% on 2L. Automatic BP 79/42. Pt asymptomatic. Manual BP 88/44. (baseline SBP in 90s)
--- NOTE | 2024-11-13 04:49 | PTCARENOTE ---
BP remains soft. Automatic 84/42, MAP 56. Manual BP 80/40. HOTEL SUPPLIES SALESPERSON notified via tiger text. 2.5 midodrine ordered and given. Pt without complaints of dizziness or lightheadedness. Appears drowsy but not abnormally so.
[2024-11-13 05:09] LABS: Hematocrit 27.1 % (39.0-52.0); Hemoglobin 9.1 g/dL (13.0-18.0); Mean Corp Hgb Conc. 33.6 g/dL (33.0-37.0); Mean Corpuscular Volume 98.5 fL (80.0-94.0); Platelet Count 80 10^3/uL (130-400); Red Cell Dist. Width 17.2 % (11.5-14.5)
[2024-11-13 05:26] LABS: ALT (SGPT) 108 U/L (0-50); AST (SGOT) 115 U/L (17-59); Albumin 3.0 g/dl (3.5-5.0); Alkaline Phosphatase 104 U/L (38-126); Blood Urea Nitrogen 70 mg/dl (9-20); Calcium 8.7 mg/dl (8.4-10.2); Carbon Dioxide 25 mmol/L (22-30); Chloride 104 mmol/L (98-107); Estimated Creatinine Clearance 26 ml/min; Glucose 97 mg/dl (70-99); Potassium 4.8 mmol/L (3.5-5.1); Sodium 134 mmol/L (135-145); Total Protein 6.0 g/dl (6.3-8.2); eGFR 21.74
--- NOTE | 2024-11-13 05:35 | PTCARENOTE ---
Repeat BP after 2.5 midodrine 81/35 MAP 51. MIDDLE CARD TENDER notified. Second dose of midodrine ordered and given. Repeat BP at 05:30 93/45 MAP 61.
[2024-11-13] MEDS: VENTOLIN NEBULES 1.25 MG INH (07:46)
--- NOTE | 2024-11-13 07:59 | W.PN.HOSP.TC ---
Today's Communication/Plan
-
GI recommendations
� Currently on diuretic. If creatinine increasing, consider nephrology consultation
� Continue carvedilol, which is beneficial if there are esophageal varices
� Follow-up with Dr. Butt as per avionics system engineer for endoscopy outpatient
� If loose stool, decrease lactulose 20 g twice daily.
� 2 g sodium diet
� Ammonia elevated at 97. Pending alpha-fetoprotein
� If there is enough ascites for paracentesis, would check SAAG and total protein to rule out cardiac ascites
� Elevated lipase could be due to decreased renal function
� If active bleeding, obtain nuc med bleeding scan given decreased renal function currently (stated by INFUSION PHARMACIST)
� Okay to restart aspirin (stated by INFUSION PHARMACIST). Continue holding Plavix
� Possible paracentesis today. SAG, total protein
Cardiology recommendations
� Echo yesterday EF 35%
� GDMT: Entresto, SGLT2, spironolactone held due to MARIA DOLORES. Carvedilol 12.5 twice daily. Medtronic ICD
Assessment / Plan
Assessment / Plan
Impression
Mr. Jonh Rodriguez is a 74-year-old male with past medical history significant for CAD status post CABG and stenting, peripheral arterial disease status post stenting, on dual antiplatelet therapy, CHF with depressed EF and history of VT status post
ICD on amiodarone, type 2 diabetes, chronic pulmonary hypertension, recent pneumonia with left-sided pleural effusion status post thoracenteses 8 days ago presented to the emergency department with bright red blood per rectum. Has heme positive red
stool in the ED.
Plan
# GI bleed - blood pressure appears to be stable for him with systolics in the 90s which is his baseline. Elevated MCV with normal B12 folate levels.
Likely lower GI
Blood pressure was low but patient usually runs low
Hemoglobin 8.9. baseline hemoglobin was 10.2 in August.
Type and screen-got 1 unit of PRBC
Resume diet 2 g sodium
GI recommendations
- Restart aspirin. Hold plavix
� Currently on diuretic. If creatinine increasing, consider nephrology consultation
� Continue carvedilol, which is beneficial if there are esophageal varices
� Follow-up with Dr. Butt as per avionics system engineer for endoscopy outpatient
� If loose stool, decrease lactulose 20 g twice daily.
� 2 g sodium diet
� Ammonia elevated at 97. Pending alpha-fetoprotein
� If there is enough ascites for paracentesis, would check SAAG and total protein to rule out cardiac ascites
� Elevated lipase could be due to decreased renal function
� If active bleeding, obtain nuc med bleeding scan given decreased renal function currently (stated by INFUSION PHARMACIST)
� Okay to restart aspirin (stated by INFUSION PHARMACIST). Continue holding Plavix
� Possible paracentesis today. SAAG, total protein
# Acute on chronic HFrEF
# Ischemic cardiomyopathy. Coronary disease with history of stent, CABG in 1994
# Ventricular tachycardia, ventricular fibrillation. S/P-BiV ICD/pacer original placement 2007 with revision generator changed in 2013
8 pound weight gain
- Hold Entresto and Aldactone
� Coreg 6.25 mg P.o. twice daily
- Amio for Vtach
Cardiology recommendations
� Echo yesterday EF 35%
� GDMT: Entresto, SGLT2, spironolactone held due to MARIA DOLORES. Carvedilol 12.5 twice daily. Medtronic ICD
� IV Lasix 40 mg on 11/12/24, 11/13/2024
# MARIA DOLORES on CKD
Possibly cardiorenal
Hold Entresto, Metformin and Aldactone
Lasix as needed
Nephrology consulted
� Keep SBP above 90
# Left pleural effusion with thoracentesis on 11-03-24-1100 cc of serosanguineous fluid-transudate. Negative for malignant cells.
Continue with Lasix. Repeat chest x-ray on Friday if continues to have moderate to large effusion then can do thoracentesis
# Thrombocytopenia
- new
- hold antiplatelet Plavix
# Elevated AST and ALT
- likely secondary to fluid overload. Follow-up after Lasix
# Cough /chronic COPD
Possible bronchitis-continue Mucinex
# Microscopic hematuria. OP Urology F/U
History of nephrolithiasis
History of prostate cancer with history of radiation
CT-No nephrolithiasis or hydronephrosis on either side. No aggressive renal mass appreciated. The ureters are nondilated.The prostate gland is within normal limits.No significant bladder wall thickening or adjacent fat stranding.
# Hyperlipidemia- Statin
# Pulmonary hypertension
# Peripheral artery disease
# LBBB
# Ex Smoker
DVT prophylaxis-SCDs
Full code
Anticipated Discharge: 24 - 48 hours
Subjective/Interval History
-
Date of Service: November 13, 2024
No acute events overnight. Patient continues to have bloody bowel movements. Patient states his pedal edema is significantly decreased.
Objective Data
-
Labs:
Laboratory Results
11/13/24
04:22
WBC 4.6 L
Hgb 9.1 L
Hct 27.1 L
Plt Count 80 L
Sodium 134 L
Potassium 4.8
Chloride 104
Carbon Dioxide 25
BUN 70 H
Creatinine 2.9 H
Glucose 97
Calcium 8.7
Total Bilirubin 1.5 H
AST 115 H
ALT 108 H
Alkaline Phosphatase 104
Vital Signs:
Vital Signs
Temp Pulse Resp BP Pulse Ox
98.0 F 60 18 97/81 97
11/13/24 04:36 11/13/24 07:00 11/13/24 07:00 11/13/24 06:00 11/13/24 07:00
I&O
11/12/24 11/13/24 11/14/24
06:59 06:59 06:59
Intake Total 870 / 870 250 / 250
Output Total 350 / 350 875 / 875
Balance 520 / 520 -625 / -625
Review of Systems
-
History Source: Patient
Constitutional: Reports Weight Loss (less pedal edema)
EENT: Reports No Symptoms Reported
Respiratory: Reports Cough
Cardiac: Reports No Symptoms
Abdomen/GI: Reports No Symptoms
Genitourinary: Reports No Symptoms
Musculoskeletal: Reports No Symptoms
Skin: Reports No Symptoms
Neuro: Reports No Symptoms
Physical Exam
-
General: Well Developed, Well Nourished, No Apparent Distress and Comfortable
HEENT: Normocephalic, Atraumatic, Moist Mucous Membranes, Anicteric, Nose Appears Normal and Ears Appear Normal
Respiratory: Wheezes (Wheezes more prominent on right lung stauffer, even though left lung was affected by pneumonia and pleural effusion)
Cardiac: Regular Rhythm and S1/S2
GI: Soft, Nontender, Normal Bowel Sounds and Distended
Musculoskeletal: No Clubbing, No Cyanosis, Edema, Right Lower Extrem and Edema, Left Lower Extrem
Skin: Warm, Dry and Jaundice (Mild jaundice visible scalp and face)
Neuro: Awake, Alert, Oriented, Tremors (Asterixis), Nonfocal/Grossly Intact and Central Nerve's Intact
Psych: Calm
Data Reviewed
-
Total Time Spent with Patient (in minutes): 45
Diagnostic Radiology: Report Reviewed by me
CT Scan: Report Reviewed by me
Medical Tests (Nuc Med, Echo etc): Report Reviewed by me
Labs: Labs Reviewed by me
[2024-11-13 08:24] LABS: Glucose - Point of Care 123 mg/dl (70-99)
--- NOTE | 2024-11-13 08:48 | W.PN.UPDATE ---
Update Note
Progress Note Update
I saw and evaluated the patient. I reviewed the resident�s note and agree with findings and plan as documented in the resident�s note.
As per RN BM O/N that was large and blood tinged. Currently reports SOB.
Gen: NAD, Awake and alert
Eyes: EOMI, PERRLA, no scleral icterus.
Neck: supple.
CV: RRR, +S1/S2, no m/r/g.
Resp: B/L wheezes
Abd: +BS, soft, NT, ND
Skin: No rashes. trace-1+ B/L LE edema
Neuro: CN 2-12 intact, non-focal.
Psych: Normal mood and affect.
Echo: EF 35%. Severely dilated LV with moderately reduced systolic function. Mild to moderate tricuspid regurgitation; estimated PASP of [address] A/P:
1. Small amount of peritoneal ascites, new compared to prior CT dated 12/01/2023.
2. Nodular contour of the liver, suggestive of hepatic cirrhosis.
3. Liver is hyperattenuating relative to the spleen, which may be seen in the setting of hemochromatosis, Mnado's disease, glycogen storage disease, or drug toxicity.
4. Splenomegaly.
5. Left pleural effusion, partially imaged. Left lower lobe consolidation, which may represent atelectasis or pneumonia.
CXR 11/12/24: Moderate left pleural effusion. Cardiomegaly.
Acute GIB:
-p/w'd BRBPR (likely LGIB)
-Plavix contributed to GI bleeding and has been on hold since admission
-cont ASA
-trend Hb
Cirrhosis:
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
-GI following
-cont Lactulose/Rifaximin
MARIA DOLORES on CKD:
-baseline Cr 1.8
-c/s renal
-likely due to CRS as well as meds including Entresto and Aldactone which are on hold
Acute hypoxemic respiratory failure due to acute on chronic HFrEF:
-CXR/echo above
-proBNP 2670
-s/p IV Lasix, another dose of IV Lasix today
-daily wts, I/Os
-holding Entresto and Aldactone
-cont Coreg
-cards following
-wheezing likely cardiac wheeze, will c/s pulm to be complete
-may need repeat thoracentesis
Other problems:
Pancytopenia
CAD s/p stent and CABG: cont BB/ASA
h/o VT s/p ICD: cont Amio
Pulm HTN
Hyponatremia, mild
Hyperkalemia, resolved
HLD: currently on statin which will be stopped if transaminases worsen
Acute transaminitis, likely due to volume O/L
Thrombocytopenia, trend (currently stable)
h/o prostate CA s/p XRT
PAD: cont ASA
LBBB
Discussed with cardiology. Pt's updated at bedside.
FULL/SCDs
--- NOTE | 2024-11-13 09:38 | W.CON.NEPH ---
Consultation
-
Date/Time Consultation Requested: 11/13/24 9am
Date/Time Consultation Performed: 11/13/24 9am
Requesting Provider: Dr. Ambrose
Performing Provider: Dr. Pagan
Reason for Consultation: MARIA DOLORES
Medical History
-
Chief Complaint: SOB
History of Present Illness:
This is a 74-year-old gentleman who has known heart failure reduced ejection fraction 35% now with patient as well. He is chronically on diuretic therapy with Lasix and spironolactone. He is also on Entresto therapy for several years. He says
that his blood pressures at home typically run in the 90 systolic range. He also has cirrhosis controlled with Lasix and spironolactone as well. He has diabetes mellitus type 2 which is stable on metformin alone. His creatinine may have been
elevated recently, at 1.9 in August. He does not recall any discussion regarding renal function. He was in [facility] in August as well. Since discharge he says that he has had many lab draws for hematology as well as cardiology. He has
access to these at [facility] but does not recall the values. In the last 3 days he had developed bright red blood per rectum with associated weakness. Given worsening shortness of breath he came to the hospital. He was noted to have acute kidney
injury with creatinine 3.0, hyponatremia as well as hyperkalemia. Hemoglobin was 8.9 at the time of admission and was noted to be 10.4 in August. He was also noted to still have a left pleural effusion despite thoracentesis on November 03. He was
given intravenous Lasix with some improvement of his shortness of breath. We are asked to assist with management of his renal issues.
Past Medical History
hypertension
hyperlipidemia
type II diabetic mellitus
prostate cancer
Ventricular arrhythmia status post ICD
CAD status post NM, status post CABG x3
CHF with depressed EF
left femoral endarterectomy with kissing bilateral iliac artery stents ()
Social History
Tobacco: Former Smoker
Alcohol: Former
Family History
Family History: Not Pertinent
Allergies / Home Medications
Allergy/AdvReac Type Severity Reaction Status Date / Time
erythromycin base Allergy contraindicated Verified 03/05/19 08:52
(Erythromycin Base) (see
comment)
�Medication �Instructions �Recorded �Confirmed �Type
ascorbic acid (vitamin C) 500 mg 500 mg PO DAILY Supplement 09/25/18 11/12/24 History
tablet (Vitamin C)
carvedilol 12.5 mg tablet 12.5 mg PO BID Blood pressure 09/25/18 11/12/24 History
spironolactone 25 mg tablet 25 mg PO DAILY Fluid 09/25/18 11/12/24 History
retention/Swelling
clopidogrel 75 mg tablet 75 mg PO DAILY ##30 09/30/18 11/12/24 Rx
metformin 500 mg tablet,extended 500 mg PO BID Diabetes 07/21/20 11/12/24 History
release 24 hr
aspirin 81 mg tablet,delayed 81 mg PO HS Blood clot 08/07/20 11/12/24 Rx
release prevention/tx ##0
folic acid 400 mcg tablet 0.4 mg PO HS Supplement ##0 08/07/20 11/12/24 Rx
multivitamin with folic acid 400 1 tab PO HS Supplement ##0 08/07/20 11/12/24 Rx
mcg tablet (Tab-A-Petar)
albuterol sulfate 1.25 mg/3 mL 1.25 mg inhalation DAILY 11/03/24 11/12/24 History
solution for nebulization
amiodarone 200 mg tablet (Pacerone) 200 mg PO DAILY 11/03/24 11/12/24 History
ferrous sulfate 325 mg (65 mg 325 mg PO DAILY 11/03/24 11/12/24 History
iron) capsule,extended release
furosemide 20 mg tablet 40 mg PO DAILY 11/03/24 11/12/24 History
rosuvastatin 20 mg tablet 10 mg PO HS High cholesterol 11/03/24 11/12/24 History
sacubitril 24 mg-valsartan 26 mg 1 tab PO BID 11/03/24 11/12/24 History
tablet (Entresto)
Review of Systems
-
Shortness of breath, weakness, bright red blood per rectum
All other systems: Negative unless noted
Physical Exam
Vital Signs
Vital Signs
Temp Pulse Resp BP Pulse Ox
97.8 F 60 16 102/56 96
11/13/24 07:54 11/13/24 08:00 11/13/24 08:00 11/13/24 08:00 11/13/24 09:01
Lab Results
WBC 4.6 10^3/uL (4.8-10.8) L 11/13/24 04:22
RBC 2.75 10^6/uL (4.70-6.10) L 11/13/24 04:22
Hgb 9.1 g/dL (13.0-18.0) L 11/13/24 04:22
Hct 27.1 % (39.0-52.0) L 11/13/24 04:22
Plt Count 80 10^3/uL (130-400) L 11/13/24 04:22
Sodium 134 mmol/L (135-145) L 11/13/24 04:22
Potassium 4.8 mmol/L (3.5-5.1) 11/13/24 04:22
Chloride 104 mmol/L (98-107) 11/13/24 04:22
Carbon Dioxide 25 mmol/L (22-30) 11/13/24 04:22
BUN 70 mg/dl (9-20) H 11/13/24 04:22
Creatinine 2.9 mg/dL (0.7-1.3) H 11/13/24 04:22
eGFR 21.74 11/13/24 04:22
Glucose 97 mg/dl (70-99) 11/13/24 04:22
Calcium 8.7 mg/dl (8.4-10.2) 11/13/24 04:22
Bsj-Q-Buopdqtystg Pept 2670 pg/ml 11/12/24 11:29
Albumin 3.0 g/dl (3.5-5.0) L 11/13/24 04:22
Laboratory Tests
03/09/21 11/12/24
13:38 04:54
Creatinine 1.1
Ur Specific [place] 1.020
Granular Casts >15
laboratory values 09/22/2024 creatinine 1.9, hemoglobin 10 point
Physical Exam
Patient is awake alert oriented and in no distress. Mood and affect were pleasant, insight and judgment were good. Pupils are equal round and reactive to light, extraocular movements are intact, sclera were anicteric. Hearing was normal, ears and
nose are intact. Oropharynx was clear. Neck was supple with trachea midline and no thyromegaly. Heart was regular rate and rhythm without rubs. Lower extremities with 1+ edema. Lungs were clear to auscultation bilaterally and with normal
excursion. Abdomen was soft, nontender, with normal active bowel sounds, and no hepatosplenomegaly. Skin was without rash and with normal turgor.
Data Reviewed
-
Radiology: Image Personally Visualized and interpreted (Chest x-ray 11/12/2024 by my reading moderate left pleural effusion)
CT Scan: Report Reviewed by me (CT abdomen pelvis without contrast 11/12/2024 small ascites, hepatic cirrhosis, splenomegaly, left effusion)
Medical Tests (Nuc Med, Echo etc): Report Reviewed by me (Echocardiogram 11/12/2024 EF 35%, mild , moderate TR)
Labs: Labs Reviewed by me
Old Records: Reviewed
Assessment/Plan
-
Assessment
MARIA DOLORES
hyponatremia
Anemia
pancytopenia
HFrEF 35% with Moderate TR
SOB
cirrhosis
left pleural effusion
mild ascites
Plan
Continue diuresis with Lasix IV
Holding Entresto, Aldactone
Will except SBP greater than 90
Follow BMP
Transfuse as needed
[2024-11-13] MEDS: MUCINEX 600 MG PO ×2 (10:59→21:45)
[2024-11-13] MEDS: DUPHALAC/CHRONULAC 20 GRAMS PO (11:00)
[2024-11-13] MEDS: XIFAXAN 550 MG PO ×2 (11:00→21:46)
[2024-11-13] MEDS: PROTONIX IV 40 MG IV ×2 (11:01→21:48)
[2024-11-13] MEDS: COREG PO (11:01)
[2024-11-13] MEDS: NSS (PRESERVATIVE FREE) 10 ML IV ×2 (11:01→21:47)
[2024-11-13] MEDS: PACERONE 200 MG PO (11:04)
--- NOTE | 2024-11-13 11:54 | PTCARENOTE ---
Notified hospitalist team and cardiology through tiger text about patients manual blood pressures and am metop + lasix.
[2024-11-13 12:50] LABS: Glucose - Point of Care 175 mg/dl (70-99)
--- NOTE | 2024-11-13 12:59 | PTCARENOTE ---
messaged hospitalist team about ordering insulin for poc glucose if appropriate
--- NOTE | 2024-11-13 13:26 | W.PN.CD ---
Today's Communication / Plan
-
IV lasix today
coreg back to 6.25 mg bid
Impression / Plan
-
I/P: 74M with ventricular tachycardia (on amiodarone, Medtronic ICD), coronary artery disease status post bypass, HFrEF, hypertension, hypercholesterolemia, PAD, cirrhosis of the liver, type 2 diabetes mellitus, and prior prostate cancer presented
to the emergency department with a chief complaint of BRBPR.
Primary Clean Room Operator: Dr. Damon ([facility])
HFrEF, acute on chronic
Ischemic cardiomyopathy (LVEF here 35-40% in 2020, will obtain updated TTE)
- IV lasix 40 mg
- Dry weight is at least 219 pounds per thoracentesis presentation, he reports having weight of 215-220 at home after most recent hospitalization
-GDMT as tolerated:
-KYLER/ARB/ARNI: Entresto on hold with MARIA DOLORES
-SGLT2 inhibitor: None with MARIA DOLORES
-Aldosterone agonist: Spironolactone on hold with MARIA DOLORES
-Beta hemant: Carvedilol 6.25 mg bid recently lowered
-Isosorbide/Hydralazine:�
-ICD: Implanted (Medtronic)
- Echocardiogram below
-Trend daily weight, I/O, and BMP with diuresis
-HF education
Pleural effusion, left consider repeat
- Moderate on CXR in ER
- Status post left thoracentesis 11/03/2024 for 1100 mL -transudative by lights
MARIA DOLORES
- BUN 35, creatinine 1.9 in August
- now 2.9
Anemia, type unknown, acute on chronic
- H/H ~12/31 while he was in [facility]
- DAPT on hold, after evaluation by GI cardiology is okay with single agent
CAD, s/p CABG
- Stable without chest pain
- Cardiac PET last month consistent with inferior and apical scar. No reversible defects.
Ventricular tachycardia
- On amiodarone, continue
- Medtronic ICD
Type 2 diabetes mellitus, per primary service
Thrombocytopenia, chronic, platelets 109 at discharge from [facility]
Cirrhosis of the liver, follows with Dr. Butt
PAD, follows with Iftikhar Cano femoral endarterectomy (2019), chronically occluded superficial femoral arteries bilaterally
Carotid artery stenosis, high-grade, >90% bilaterally, followed by Vascular
MARION
SUBJECTIVE:
Breathing OK LE edema improved
Physical Exam
Vital Signs/Labs
Vital Signs
Temp Pulse Resp BP Pulse Ox
97.8 F 63 19 92/54 97
11/13/24 07:54 11/13/24 13:00 11/13/24 13:00 11/13/24 12:00 11/13/24 13:00
11/12/24 11/13/24 11/14/24
06:59 06:59 06:59
Actual Weight 226 lb 10.163 oz 224 lb 6.889 oz
11/13/24 04:22
11/13/24 04:22
PT 15.9 Sec (11.4-14.6) H 11/12/24 00:04
INR 1.22 11/12/24 00:04
APTT 34.5 Sec (23.4-35.0) 11/12/24 00:04
11/12/24
11:29
[id number] Pept 2670
Physical Exam
Constitutional: No acute distress
EENT: Anicteric
Cardiovascular: Rhythm & rate is regular
Respiratory: Respiratory effort normal and Wheeze Present
GI: Soft
Neuro/Psych: Alert and Oriented
Data Reviewed
-
Date of Service: November 13, 2024
Medical Decision Making: Reviewed Test Results
EKG: Tracing Personally Visualized and interpreted (paced)
Echo: Tracing Personally Visualized and interpreted and Report Reviewed by me
Labs: Labs Reviewed by me
--- NOTE | 2024-11-13 15:17 | W.PN.GI.CBS2 ---
Today's Communication / Plan
-
Plan:
-Cirrhosis of the liver noted on recent imaging-r/o MASLD vs +/- cardiac cirrhosis
Currently getting dialysis through cardiology, creatinine seems to be stabilized
alpha-fetoprotein pending
Will check abdominal ultrasound 11/15/2024, if there is enough ascites, could check SAAG, total protein in the ascitic fluid to r/o cardiac ascites
2 g sodium Diet
Daily weight
Monitor electrolytes and replete
Currently on carvedilol which would be beneficial if there is any esophageal varices
He will need to follow-up with Dr. Butt, his primary film and video graphics designer for an endoscopy in the future
Patient started on lactulose 20 g twice a day and Xifaxan, will titrate lactulose dose based on bowel movements
- Rectal bleeding
No further active bleeding at this time
Will continue to monitor
Plavix is on hold since admission
Will follow
Assessment / Plan
-
74-year-old male with past medical history CAD status post CABG x 3, PAD left femoral endarterectomy with bilateral iliac artery stents (2019) on aspirin and Plavix, V. tach on Amio status post ICD, CHF with reduced EF, hypertension, diabetes,
hyperlipidemia, prostate cancer status post XRT, pneumonia, left-sided effusion recent diagnosis of anemia with thrombocytopenia that was being worked up as an outpatient by hematology status post iron infusion who presents to the emergency room
with 4-day history of rectal bleeding. Asked to evaluate for the same. The patient states that approximately 4 days ago he started having some bright red blood per rectum on the tissue and in the bowl. This was a small amount. 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 He did state that there were some clots in it. He does strain on occasion to have bowel movements. He does have a cough, he
is also had some increased shortness of breath. He had an episode of red blood overnight. None further for nursing this morning. Presentation WBC 5.7, hemoglobin 8.9, platelets 98. Repeat pending. Did have 1 episode of red blood overnight.
None further. Patient was transfused 2 units PRBC this am. Awaiting repeat labs. Discussed with nursing. Rectal exam performed by myself without any external hemorrhoids, no obvious masses, dried blood on the outside of his skin. Scant red blood
on rectal exam. Patient had a virtual colonoscopy 01/2024 that was negative. His last endoscopic colonoscopy was approximately 8 years ago that was 'normal' per patient. Records unavailable to us. He has never had an endoscopy before. He is
followed by Dr. Daquan [facility] for elevated LFTs He had a recent ultrasound records unavailable to us. Although Dr. Pickard wanted him to have an upper endoscopy to rule out varices when he saw him approx 6 weeks ago. He has had increasing lower
extremity edema prompting increase in Lasix by cardiology. CT imaging here confirming cirrhosis. The patient does have a history of prostate cancer status post XRT however with no prior history of rectal bleeding in the past. Recent consult by
Criselda for low Hgb and PLT per . Had iron per . Patient has also been a little 'sleepy' past couple days which thought from back pain. Patient has some asterixis on exam. He is AAO x3.
Impression:
Lower GI bleed-> scant rectal bleeding on rectal, no obvious mass, hemorrhoid or rectal varices identified.
-> Hx prostate Ca s/p XRT
-> Virtual [place] 01/2024, last endoscopic colonoscopy 8 yrs ago per patient/, (held off secondary to comorbidities and ASA/Plavix)
Cirrhosis on CT Imaging, followed by Dr. Butt-> There was talks of EGD to r/p varices 6 weeks ago based on US, therefore likely seen on imaging at that time as well as thrombocytopenia and chronic elevated LFTs. Was told about probable progression
in past.
Ascites
Asterixis
HFrEF hx VT with ICD
MARIA DOLORES on CKD
Elevated Lipase, likely secondary to increased renal function as patient without any abd pain or signs of pancreatitis.
Left pleural effusion
Plan:
-Cirrhosis of the liver noted on recent imaging-r/o MASLD vs +/- cardiac cirrhosis
Currently getting dialysis through cardiology, creatinine seems to be stabilized
alpha-fetoprotein pending
Will check abdominal ultrasound 11/15/2024, if there is enough ascites, could check SAAG, total protein in the ascitic fluid to r/o cardiac ascites
2 g sodium Diet
Daily weight
Monitor electrolytes and replete
Currently on carvedilol which would be beneficial if there is any esophageal varices
He will need to follow-up with Dr. Butt, his primary film and video graphics designer for an endoscopy in the future
Patient started on lactulose 20 g twice a day and Xifaxan, will titrate lactulose dose based on bowel movements
- Rectal bleeding
No further active bleeding at this time
Will continue to monitor
Plavix is on hold since admission
Will follow
Subjective
Subjective
Date of Service: November 13, 2024
Patient denies any abdominal pain, nausea or vomiting. He did have bowel movement today without any bright blood but some dark-colored stool noted hemoglobin stable after 2 units of packed red blood cells
Objective
Data Reviewed
Laboratory Data:
Laboratory Results
11/13/24 04:22
11/13/24 04:22
Laboratory Results
PT 15.9 Sec (11.4-14.6) H 11/12/24 00:04
INR 1.22 11/12/24 00:04
APTT 34.5 Sec (23.4-35.0) 11/12/24 00:04
Total Bilirubin 1.5 mg/dl (0.2-1.3) H 11/13/24 04:22
AST 115 U/L (17-59) H 11/13/24 04:22
ALT 108 U/L (0-50) H 11/13/24 04:22
Alkaline Phosphatase 104 U/L (38-126) 11/13/24 04:22
Lipase 616 U/L (23-300) H 11/12/24 00:04
Vital Signs and I&O:
Vital Signs
Temp Pulse Resp BP Pulse Ox
98.1 F 63 19 92/54 97
11/13/24 11:16 11/13/24 13:00 11/13/24 13:00 11/13/24 12:00 11/13/24 13:00
I&O
11/12/24 11/13/24 11/14/24
06:59 06:59 06:59
Intake Total 870 / 870 250 / 250 240 / 240
Output Total 350 / 350 875 / 875 200 / 200
Balance 520 / 520 -625 / -625 40 / 40
Physical Exam
Physical Exam
GI: Soft, Non Distended and Non Tender
--- NOTE | 2024-11-13 16:10 | CON.PUL ---
Consultation
Consultation Request
Date/Time Consultation Requested: 11/13/2024958
Date/Time Consultation Performed: 11/13/2024 - 3
Requesting Provider: Dr. Ambrose
Performing Provider: Dr. Willis
Reason for Consultation: Wheezing
Medical History
-
Chief Complaint: Rectal bleeding + weakness
History of Present Illness:
74-year-old male with a past medical history of hypertension, hyperlipidemia, chronic cough, DM type II, history of prostate cancer, history of VT s/p AICD (02/2008), CAD s/p CABG (1994) + coronary stent, chronic systolic heart failure with
diastolic dysfunction, ICM, chronic amiodarone therapy and PAD s/p bilateral common iliac artery stents who presents with rectal bleeding and weakness for 1 week. Patient reported that he started clots as well. Initially in the ER he was afebrile
with pulse rate 76, respiratory rate 17, BP 90/53, and saturating 96% on room air.. Initial labs pertinent for Hb 8.9, platelet count 98, sodium 130, potassium 5.3, creatinine 3.0, lipase 616, and urinalysis slightly cloudy with moderate bacteria.
Urine culture was collected. CXR showed a moderate left-sided pleural effusion. Of note he recently had a thoracentesis on 11/03/2024 where IR removed 1100 cc of serosanguineous transudative pleural fluid. He was started on a PPI in the ER and
admitted to the IMU for further care.. Cardiology was consulted given his history of CHF. Diuresis was started and GI was also consulted as he has ascites. He does have a commodity merchant, Dr. Butt, that he was told to follow-up for in the future
for an endoscopy. On 11/13, patient was short of breath and was found to be wheezing. Pulmonary service now consulted for additional management/recommendations.
When I saw the patient, his , Debbie, was present at bedside all questions were answered. Patient endorses a cough + SOB. He is currently saturating 96% on room air, with BP 96/54 and heart rate 60. He currently denies chest pain, VILLALPANDO,
nausea, fevers or chills. At home he uses nebulized 3% as well as Mucinex and has an Acapella. He does follow with Dr. Stockton in [facility] office, last visit on 10/26/2024.
PMHx: Hypertension, hyperlipidemia, DM type II, history of prostate cancer, history of VT s/p AICD, CAD s/p CABG (1994), anemia, chronic cough, chronic systolic heart failure with diastolic dysfunction/ICM, stable 3 mm nodule in left lung base,
chronic amiodarone therapy, PAD s/p bilateral common iliac artery stents
PSHx: CABG x 3, coronary stent, tonsillectomy, wisdom teeth removal, ICD implantation (02/2008), kidney stone removal, cataract removal, left femoral endarterectomy with kissing bilateral iliac artery stents (09/29/2018), BiV ICD generator change
(08/07/2020), Mohs (01/2023 + November 2023)
Past Medical History
Past Medical History: Other (Above as per HPI)
Past Surgical History: Other (Above as per HPI)
Social History
Tobacco: Former Smoker (Quit smoking 1994, smoked 1 PPD x 15-20 years)
Alcohol: None
Personal:
Living: With Family
Family History
Family History: CAD (Father), Cancer (Mother + maternal aunt (unknown type)) and Diabetes (Father + paternal grandmother)
Allergies / Home Medications
Allergies
Allergy/AdvReac Type Severity Reaction Status Date / Time
erythromycin base Allergy contraindicated Verified 03/05/19 08:52
(Erythromycin Base) (see
comment)
Home Medications
�Medication �Instructions �Recorded �Confirmed �Last Taken �Type
ascorbic acid (vitamin C) 500 mg 500 mg PO DAILY Supplement 09/25/18 11/12/24 08/06/20 23:30 History
tablet (Vitamin C)
carvedilol 12.5 mg tablet 12.5 mg PO BID Blood pressure 09/25/18 11/12/24 08/07/20 07:00 History
spironolactone 25 mg tablet 25 mg PO DAILY Fluid 09/25/18 11/12/24 08/06/20 08:00 History
retention/Swelling
clopidogrel 75 mg tablet 75 mg PO DAILY ##30 09/30/18 11/12/24 08/07/20 07:00 Rx
metformin 500 mg tablet,extended 500 mg PO BID Diabetes 07/21/20 11/12/24 08/06/20 19:30 History
release 24 hr
aspirin 81 mg tablet,delayed 81 mg PO HS Blood clot 08/07/20 11/12/24 08/06/20 23:30 Rx
release prevention/tx ##0
folic acid 400 mcg tablet 0.4 mg PO HS Supplement ##0 08/07/20 11/12/24 08/06/20 23:30 Rx
multivitamin with folic acid 400 1 tab PO HS Supplement ##0 08/07/20 11/12/24 08/06/20 23:30 Rx
mcg tablet (Tab-A-Petar)
albuterol sulfate 1.25 mg/3 mL 1.25 mg inhalation DAILY 11/03/24 11/12/24 Unknown History
solution for nebulization
amiodarone 200 mg tablet (Pacerone) 200 mg PO DAILY 11/03/24 11/12/24 Unknown History
ferrous sulfate 325 mg (65 mg 325 mg PO DAILY 11/03/24 11/12/24 Unknown History
iron) capsule,extended release
furosemide 20 mg tablet 40 mg PO DAILY 11/03/24 11/12/24 Unknown History
rosuvastatin 20 mg tablet 10 mg PO HS High cholesterol 11/03/24 11/12/24 Unknown History
sacubitril 24 mg-valsartan 26 mg 1 tab PO BID 11/03/24 11/12/24 Unknown History
tablet (Entresto)
Review of Systems
-
History Source: Patient
All other systems: Negative unless noted
Vitals / Labs / Diagnostic Testing
Vital Signs
Temp Pulse Resp BP Pulse Ox
97.8 F 60 17 93/51 96
11/13/24 07:54 11/13/24 11:27 11/13/24 10:33 11/13/24 11:27 11/13/24 11:18
Lab Data
11/13/24 04:22
11/13/24 04:22
Microbiology
11/12/24 04:54 Urine Urine Culture - Final
No Significant Growth
Diagnostic Testing:
Physical Exam
-
HEENT: Normocephalic and Anicteric
Cardiovascular: S1/S2 and Peripheral Edema (+3 lower extremity pitting edema bilateral)
Respiratory: Wheeze (negative), Rales (Bilaterally (R >L)), Rhonchi (negative), Non-Labored Respirations and Other (Diminished breath sounds in left base)
GI: Soft, Distended, Non Tender and Normal Bowel Sounds
Neurology: Awake, Alert, Oriented and Tremors (negative)
Skin: Warm and Dry
General: Respiratory Distress (negative), Comfortable, Chills (negative) and Sweats (negative)
Assessment
-
Assessment: 74-year-old male with a past medical history of hypertension, hyperlipidemia, chronic cough, DM type II, history of prostate cancer, history of VT s/p AICD (02/2008), CAD s/p CABG (1994) + coronary stent, chronic systolic heart failure
with diastolic dysfunction, ICM, chronic amiodarone therapy and PAD s/p bilateral common iliac artery stents who presents with rectal bleeding and weakness for 1 week. Patient reported that he started clots as well. Initially in the ER he was
afebrile with pulse rate 76, respiratory rate 17, BP 90/53, and saturating 96% on room air.. Initial labs pertinent for Hb 8.9, platelet count 98, sodium 130, potassium 5.3, creatinine 3.0, lipase 616, and urinalysis slightly cloudy with moderate
bacteria. Urine culture was collected. CXR showed a moderate left-sided pleural effusion. Of note he recently had a thoracentesis on 11/03/2024 where IR removed 1100 cc of serosanguineous transudative pleural fluid. He was started on a PPI in the
ER and admitted to the IMU for further care.. Cardiology was consulted given his history of CHF. Diuresis was started and GI was also consulted as he has ascites. He does have a commodity merchant, Dr. Butt, that he was told to follow-up for in the
future for an endoscopy. On 11/13, patient was short of breath and was found to be wheezing. Pulmonary service now consulted for additional management/recommendations.
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
left lung base, chronic amiodarone therapy, PAD s/p bilateral common iliac artery stents
Impression:
#Wheezing, likely due to chronic cough in the setting of acute decompensated heart failure and left-sided pleural effusion
#Left-sided pleural effusion s/p thoracentesis on 11/03/2024 revealing transudative effusion
#Cirrhosis to suspected to be from chronic hepatic congestion from heart failure
#Acute on chronic systolic heart failure with LVEF 35% with inferior and anteroseptal hypokinesis via TTE from 11/12/2024
#Mild�moderate TR with pulmonary hypertension (mild � PASP: 33 mmHg via TTE from 11/12/2024; his mPAP was 36 in July 2020 via [facility] at the time)
#Rectal bleeding
#Acute blood loss anemia due to rectal bleeding
#Acute thrombocytopenia
#Hyponatremia
#MARIA DOLORES (prior creatinine from March 2021 was 1.1)
#Transaminitis
#Abnormal urinalysis with moderate urine bacteria and slightly cloudy appearance
Plan:
- Patient CT abdomen/pelvis from 11/12/2024 shows tree-in-bud nodular opacities in the right lower lobe with bronchial wall thickening and a medial right lower lobe consolidative opacity
- This is concerning for an infection, however I do not have prior imaging hence unclear if this is a resolving infection or a new one
- He has also had multiple courses of antibiotics since end of July 2024, including doxycycline, amoxicillin, Zithromax and cefuroxime --> seems as if his cough has persisted despite these antibiotics
- He is not febrile, and his cough is not worsening --> observe off ABx for now
- Could be that he has a microbe that is resistant to these antibiotics he has received or there could be an infection from NTM vs fungus
- Patient's prior CT chest from 02/29/2024 was personally reviewed by me, showing a small left-sided pleural effusion, trace right-sided pleural effusion, and no evidence of tree-in-bud nodular opacities at that time or consolidation
- Considering he has undergone multiple courses of ABx with persistence of his cough, I will check a dedicated CT Chest to evaluate remainder of lung parenchyma
- Regarding his cough, continue with mucinex and nebulized albuterol. I will start nebulized 3% with percussor chest PT
- If he is able to submit a sputum Cx, then that would be helpful given the findings on RLL from CT A/P
- Management of cirrhosis and rectal bleeding to primary team and GI
- Maintain SpO2 >90-94% with supplemental O2 as needed
- prn nebulized bronchodilators - not currently bronchospastic
- Incentive spirometer encouraged q1hr while awake
- Replete electrolytes with K>4, Mg>2
- Trend H/H and transfuse if needed to keep Hb>7-8g/dL; keep plt>50k and INR<1.8
- Maintain euglycemia with goal BG >100 and <180
- DVT ppx: SCDs given his GI bleed
Pulmonary service will continue to follow along.
Data:
CT abdomen/pelvis without contrast 11/12/2024:
1. Small amount of peritoneal ascites, new compared to prior CT dated 12/01/2023.
2. Nodular contour of the liver, suggestive of hepatic cirrhosis.
3. Liver is hyperattenuating relative to the spleen, which may be seen in the setting of hemachromatosis, Mando's disease, glycogen storage disease, or drug toxicity.
4. Splenomegaly.
5. Left pleural effusion, partially imaged. Right lower lobe consolidation, which may represent atelectasis or pneumonia.
Total time spent today was 58 minutes for this encounter. Time includes reviewing laboratory test/imaging results, reviewing pertinent medical records, obtaining and reviewing medical history, performing an appropriate exam, ordering medications,
tests and procedures. Time also includes documentation of this encounter, coordinating patient care and communicating with other healthcare professionals. Total time does not include separately billed tests performed on this date of service.
[2024-11-13 17:59] LABS: Glucose - Point of Care 152 mg/dl (70-99)
[2024-11-13] MEDS: NOVOLOG FLEXPEN-LOW RESISTANCE 1 UNITS SC (18:33)
[2024-11-13] MEDS: DUPHALAC/CHRONULAC PO (21:45)
[2024-11-13] MEDS: CRESTOR 10 MG PO (21:46)
[2024-11-13] MEDS: COREG 6.25 MG PO (21:46)
[2024-11-13] MEDS: ASPIR LOW (ENTERIC COATED) 81 MG PO (21:47)
[2024-11-13 21:53] LABS: Glucose - Point of Care 196 mg/dl (70-99)
[2024-11-13] MEDS: TYLENOL 650 MG PO (22:10)
[2024-11-13] MEDS: DUONEB 3 ML INH (22:37)
[2024-11-14] VITALS (15 sets, daily range): BP systolic 97–128; BP diastolic 48–73; BMI 32.2; BMI 32.3
--- NOTE | 2024-11-14 01:28 | PTCARENOTE ---
Assumed care of pt from charleen RN. Pt aaox3. 100% A-V paced on the monitor. SpO2 96% on 2L NC. Pt with expiratory wheezing on auscultation. STATION WORKER notified and breathing treatment ordered. Hygiene completed. Pt resting in bed with call ralph in reach.
[2024-11-14 06:40] LABS: Hematocrit 28.2 % (39.0-52.0); Hemoglobin 9.2 g/dL (13.0-18.0); Mean Corp Hgb Conc. 32.6 g/dL (33.0-37.0); Mean Corpuscular Volume 101.4 fL (80.0-94.0); Platelet Count 76 10^3/uL (130-400); Red Cell Dist. Width 16.6 % (11.5-14.5)
[2024-11-14 07:13] LABS: ALT (SGPT) 114 U/L (0-50); AST (SGOT) 112 U/L (17-59); Albumin 3.1 g/dl (3.5-5.0); Alkaline Phosphatase 124 U/L (38-126); Blood Urea Nitrogen 70 mg/dl (9-20); Calcium 8.8 mg/dl (8.4-10.2); Carbon Dioxide 25 mmol/L (22-30); Chloride 104 mmol/L (98-107); Estimated Creatinine Clearance 29 ml/min; Glucose 112 mg/dl (70-99); Potassium 4.7 mmol/L (3.5-5.1); Sodium 134 mmol/L (135-145); Total Protein 6.2 g/dl (6.3-8.2); eGFR 24.78
[2024-11-14] MEDS: SODIUM CHLORIDE 3% FOR INHALATION 1 VIAL INH ×3 (07:23→19:34)
[2024-11-14] MEDS: DUONEB 3 ML INH ×3 (07:23→19:33)
--- NOTE | 2024-11-14 07:54 | W.PN.UPDATE ---
Update Note
Progress Note Update
I saw and evaluated the patient. I reviewed the resident�s note and agree with findings and plan as documented in the resident�s note.
Denies SOB. One blood tinged smear (stool) overnight.
Gen: NAD, Awake and alert
Eyes: EOMI, PERRLA, no scleral icterus.
Neck: supple.
CV: remains RRR, +S1/S2, no m/r/g.
Resp: B/L wheezes (improved from yesterday)
Abd: +BS, soft, NT, ND
Skin: No rashes. no LE edema
Neuro: remains CN 2-12 intact, non-focal.
Psych: Normal mood and affect.
Echo: EF 35%. Severely dilated LV with moderately reduced systolic function. Mild to moderate tricuspid regurgitation; estimated PASP of [address] A/P:
1. Small amount of peritoneal ascites, new compared to prior CT dated 12/01/2023.
2. Nodular contour of the liver, suggestive of hepatic cirrhosis.
3. Liver is hyperattenuating relative to the spleen, which may be seen in the setting of hemochromatosis, Mando's disease, glycogen storage disease, or drug toxicity.
4. Splenomegaly.
5. Left pleural effusion, partially imaged. Left lower lobe consolidation, which may represent atelectasis or pneumonia.
CXR 11/12/24: Moderate left pleural effusion. Cardiomegaly.
Acute GIB:
-p/w'd BRBPR (likely LGIB)
-Plavix contributed to GI bleeding and has been on hold since admission
-cont ASA
-Hb stable
Cirrhosis:
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
-GI following
-cont Lactulose/Rifaximin
MARIA DOLORES on CKD:
-baseline Cr 1.8
-likely due to CRS as well as meds including Entresto and Aldactone which are on hold
-renal following
-Cr improving
Acute hypoxemic respiratory failure due to acute on chronic HFrEF:
-CXR/echo above
-proBNP 2670
-s/p IV Lasix (note pt and refused 11/13 dose)
-daily wts, I/Os
-holding Entresto and Aldactone as above
-cont Coreg
-cards following
-wheezing likely cardiac wheeze and well as due to chronic cough and L pleural effusion as per pulm. CT chest ordered.
-may need repeat thoracentesis
Other problems:
Pancytopenia
CAD s/p stent and CABG: cont BB/ASA
h/o VT s/p ICD: cont Amio
Pulm HTN
Hyponatremia, mild
Hyperkalemia, resolved
HLD: currently on statin which will be stopped if transaminases worsen
Acute transaminitis, likely due to volume O/L
Thrombocytopenia, trend (currently stable)
h/o prostate CA s/p XRT
PAD: cont ASA
LBBB
Obesity due to excess calories
Discussed with cardiology. Pt's updated at bedside.
FULL/SCDs
[2024-11-14 08:12] LABS: Glucose - Point of Care 117 mg/dl (70-99)
[2024-11-14] MEDS: NOVOLOG FLEXPEN-LOW RESISTANCE SC ×2 (08:13→17:51)
[2024-11-14] MEDS: PACERONE 200 MG PO (08:20)
[2024-11-14] MEDS: NSS (PRESERVATIVE FREE) 10 ML IV ×2 (08:20→21:08)
[2024-11-14] MEDS: XIFAXAN 550 MG PO ×2 (08:20→21:07)
[2024-11-14] MEDS: COREG PO ×2 (08:20→10:01)
[2024-11-14] MEDS: DUPHALAC/CHRONULAC 20 GRAMS PO ×2 (08:20→21:07)
[2024-11-14] MEDS: MUCINEX 600 MG PO ×2 (08:20→21:07)
[2024-11-14] MEDS: PROTONIX IV 40 MG IV ×2 (08:21→21:07)
--- NOTE | 2024-11-14 08:37 | W.PN.HOSP.TC ---
Today's Communication/Plan
-
CT chest per pulmonology. Started 3% sodium chloride inhaler per pulmonology.
Continue Lasix IV 80 mg today. A previous dose was held due to blood pressure at 80/40 (patient did not refuse it).
Assessment / Plan
Assessment / Plan
Impression
Mr. Jonh Rodriguez is a 74-year-old male with past medical history significant for CAD status post CABG and stenting, peripheral arterial disease status post stenting, on dual antiplatelet therapy, CHF with depressed EF and history of VT status post
ICD on amiodarone, type 2 diabetes, chronic pulmonary hypertension, recent pneumonia with left-sided pleural effusion status post thoracenteses 8 days ago presented to the emergency department with bright red blood per rectum. Has heme positive red
stool in the ED.
Plan
# GI bleed - blood pressure appears to be stable for him with systolics in the 90s which is his baseline. Elevated MCV with normal B12 folate levels.
Likely lower GI
Patient stated sysbp usually 88-95
Hemoglobin 8.9. baseline hemoglobin was 10.2 in August. Type and screen-got 1 unit of PRBC
GI recommendations
� Continue carvedilol, which is beneficial if there are esophageal varices
� If loose stool, decrease lactulose 20 g twice daily.
� Ammonia elevated at 97. Pending alpha-fetoprotein
� Elevated lipase could be due to decreased renal function
� If active bleeding, obtain nuc med bleeding scan given decreased renal function currently (per OFFICE SERVICES MANAGER)
� Okay to restart aspirin. Continue holding Plavix
� Possible paracentesis Friday. If paracentesis, we will get SAAG and total protein
Follow-up with Dr. Butt as per paste mixer liquid for endoscopy outpatient
# Acute on chronic HFrEF
# Ischemic cardiomyopathy. Coronary disease with history of stent, CABG in 1994
# Ventricular tachycardia, ventricular fibrillation. S/P-BiV ICD/pacer original placement 2007 with revision generator changed in 2013
8 pound weight gain
- Hold Entresto and Aldactone
� Coreg 6.25 mg P.o. twice daily
- Amio for Vtach
Cardiology recommendations
� Echo EF 35%
� GDMT: Entresto, SGLT2, spironolactone held due to MARIA DOLORES. Carvedilol 12.5 twice daily. Medtronic ICD
� IV Lasix 40 to 80 mg per nephrology
# MARIA DOLORES on CKD
Likely cardiorenal
Creatinine 3 in the ED. Down to 2.6
eGFR 25
Hold Entresto, Metformin and Aldactone
Lasix as needed
Nephrology consulted
� Keep SBP above 90
# Left pleural effusion with thoracentesis on 11-03-24-1100 cc of serosanguineous fluid-transudate. Negative for malignant cells.
# Cough /chronic COPD
Continue with Lasix.
�Repeat chest x-ray on Friday. If continues to have moderate to large effusion then can do thoracentesis
�Possible bronchitis-continue Mucinex
Pulmonology consulted
� CT chest pending
# Thrombocytopenia
New. Platelet count 80,000
- hold antiplatelet Plavix
# Elevated AST and ALT
AST ALT in the 100s. Ammonia elevated at 97. Total bili 1.2 to 1.5
recalls elevated LFTs since 2 years ago
- likely secondary to fluid overload/heart failure. Follow-up after Lasix
# Microscopic hematuria. OP Urology F/U
History of nephrolithiasis
History of prostate cancer with history of radiation
CT-No nephrolithiasis or hydronephrosis on either side. No aggressive renal mass appreciated. The ureters are nondilated.The prostate gland is within normal limits.No significant bladder wall thickening or adjacent fat stranding.
# Hyperlipidemia- Statin
# Pulmonary hypertension
# Peripheral artery disease
# LBBB
# Ex Smoker
DVT prophylaxis-SCDs
Diet: 2 g sodium
Full code
Anticipated Discharge: > 48 hours
Subjective/Interval History
-
Date of Service: November 14, 2024
No acute events overnight. Denies SOB. One blood tinged smear (stool) overnight.
Objective Data
-
Labs:
Laboratory Results
11/14/24
06:28
WBC 4.9
Hgb 9.2 L
Hct 28.2 L
Plt Count 76 L
Sodium 134 L
Potassium 4.7
Chloride 104
Carbon Dioxide 25
BUN 70 H
Creatinine 2.6 H
Glucose 112 H
Calcium 8.8
Total Bilirubin 1.5 H
AST 112 H
ALT 114 H
Alkaline Phosphatase 124
Vital Signs:
Vital Signs
Temp Pulse Resp BP Pulse Ox
98.4 F 60 18 97/48 94
11/14/24 03:00 11/14/24 08:24 11/14/24 08:24 11/14/24 08:24 11/14/24 08:24
I&O
11/13/24 11/14/24 11/15/24
06:59 06:59 06:59
Intake Total 250 / 250 1200 / 1200
Output Total 875 / 875 1200 / 1200
Balance -625 / -625 0 / 0
Review of Systems
-
History Source: Patient
All other systems: Reviewed and negative
Physical Exam
-
General: Well Developed, Well Nourished, No Apparent Distress and Comfortable
HEENT: Normocephalic, Atraumatic, Moist Mucous Membranes, Anicteric, Nose Appears Normal and Ears Appear Normal
Respiratory: Wheezes (Right lung stauffer)
Cardiac: Regular Rhythm and S1/S2
GI: Soft, Nontender, Normal Bowel Sounds and Distended
Musculoskeletal: No Clubbing, No Cyanosis, Edema, Right Lower Extrem and Edema, Left Lower Extrem
Skin: Warm, Dry and Jaundice
Neuro: Awake, Alert and Oriented
Psych: Calm
Data Reviewed
-
Total Time Spent with Patient (in minutes): 15
Diagnostic Radiology: Report Reviewed by me
CT Scan: Report Reviewed by me
Labs: Labs Reviewed by me
--- NOTE | 2024-11-14 09:53 | CM ---
chart reviewed
Patient for CT chest today
on room air
PLAN: home, no needs anticipated, CM to continue to follow for needs
--- NOTE | 2024-11-14 11:07 | W.PN.NEPH.PH ---
Today's Communication / Plan
-
diurese
Assessment/Plan
-
Assessment
MARIA DOLORES
hyponatremia
Anemia
pancytopenia
HFrEF 35% with Moderate TR
SOB
cirrhosis
left pleural effusion
mild ascites
Plan
Continue diuresis with Lasix IV 80mg today
Holding Entresto, Aldactone
Will except SBPs greater than 90
Follow BMP
Transfuse as needed
-
-
Date of Service: November 14, 2024
CC / HPI / ROS
-
Chief Complaint:
History of Present Illness:
Na stable 134
MARIA DOLORES/Cr down to 2.6
diuresed somewhat with IV lasix for decompensated HFrEF
BP stable low
Review of Systems:
no CP/SOB
Labs
-
Labs:
WBC 4.9 10^3/uL (4.8-10.8) 11/14/24 06:28
RBC 2.78 10^6/uL (4.70-6.10) L 11/14/24 06:28
Hgb 9.2 g/dL (13.0-18.0) L 11/14/24 06:28
Hct 28.2 % (39.0-52.0) L 11/14/24 06:28
Plt Count 76 10^3/uL (130-400) L 11/14/24 06:28
Sodium 134 mmol/L (135-145) L 11/14/24 06:28
Potassium 4.7 mmol/L (3.5-5.1) 11/14/24 06:28
Chloride 104 mmol/L (98-107) 11/14/24 06:28
Carbon Dioxide 25 mmol/L (22-30) 11/14/24 06:28
BUN 70 mg/dl (9-20) H 11/14/24 06:28
Creatinine 2.6 mg/dL (0.7-1.3) H 11/14/24 06:28
eGFR 24.78 11/14/24 06:28
Glucose 112 mg/dl (70-99) H 11/14/24 06:28
Calcium 8.8 mg/dl (8.4-10.2) 11/14/24 06:28
Rbe-S-Jbnyahpeplt Pept 2670 pg/ml 11/12/24 11:29
Albumin 3.1 g/dl (3.5-5.0) L 11/14/24 06:28
Physical Exam
-
Vital Signs:
Vital Signs
Temp Pulse Resp BP Pulse Ox
98.4 F 69 23 104/54 93
11/14/24 07:55 11/14/24 10:22 11/14/24 10:22 11/14/24 10:22 11/14/24 08:40
Cardiovascular:: Regular rate and rhythm
Respiratory:: Bilateral: Coarse
Lung Excursion:: Normal
Abdomen:: Nontender and Soft
Bowel Sounds:: Normal
Extremity Edema:: +2: Bilateral:
[2024-11-14] MEDS: LASIX 80 MG IV (11:39)
[2024-11-14] MEDS: NOVOLOG FLEXPEN-LOW RESISTANCE 3 UNITS SC (11:46)
[2024-11-14 11:57] LABS: Glucose - Point of Care 286 mg/dl (70-99)
--- NOTE | 2024-11-14 13:32 | W.PN.CD ---
Today's Communication / Plan
-
IV diuresis
MARIA DOLORES improving
Impression / Plan
-
I/P: 74M with ventricular tachycardia (on amiodarone, Medtronic ICD), coronary artery disease status post bypass, HFrEF, hypertension, hypercholesterolemia, PAD, cirrhosis of the liver, type 2 diabetes mellitus, and prior prostate cancer presented
to the emergency department with a chief complaint of BRBPR.
Primary Cotton Chopper: Dr. Damon ([facility])
HFrEF, acute on chronic
Ischemic cardiomyopathy (LVEF here 35-40% in 2020, will obtain updated TTE)
- IV lasix 40 mg
- Dry weight is at least 219 pounds per thoracentesis presentation, he reports having weight of 215-220 at home after most recent hospitalization
-GDMT as tolerated:
-KYLER/ARB/ARNI: Entresto on hold with MARIA DOLORES
-SGLT2 inhibitor: None with MARIA DOLORES
-Aldosterone agonist: Spironolactone on hold with MARIA DOLORES
-Beta hemant: Carvedilol 6.25 mg bid recently lowered
-Isosorbide/Hydralazine:�
-ICD: Implanted (Medtronic)
- Echocardiogram below
-Trend daily weight, I/O, and BMP with diuresis
-HF education
Pleural effusion, left consider repeat
- Moderate on CXR in ER
- Status post left thoracentesis 11/03/2024 for 1100 mL -transudative by lights
- CT today
MARIA DOLORES
- BUN 35, creatinine 1.9 in August
- now 2.6
Anemia, type unknown, acute on chronic
- H/H ~12/31 while he was in [facility]
- DAPT on hold, after evaluation by GI cardiology is okay with single agent
CAD, s/p CABG
- Stable without chest pain
- Cardiac PET last month consistent with inferior and apical scar. No reversible defects.
Ventricular tachycardia
- On amiodarone, continue
- Medtronic ICD
Type 2 diabetes mellitus, per primary service
Thrombocytopenia, chronic, platelets 109 at discharge from [facility]
Cirrhosis of the liver, follows with Dr. Butt
PAD, follows with Iftikhar Cano femoral endarterectomy (2019), chronically occluded superficial femoral arteries bilaterally
Carotid artery stenosis, high-grade, >90% bilaterally, followed by Vascular
[facility]
SUBJECTIVE:
Breathing improivng; less wheezing today
Physical Exam
Vital Signs/Labs
Vital Signs
Temp Pulse Resp BP Pulse Ox
97.9 F 63 20 104/54 93
11/14/24 11:41 11/14/24 12:00 11/14/24 12:00 11/14/24 11:39 11/14/24 12:00
11/13/24 11/14/24 11/15/24
06:59 06:59 06:59
Actual Weight 224 lb 3 oz 224 lb 13.944 oz
11/14/24 06:28
11/14/24 06:28
PT 15.9 Sec (11.4-14.6) H 11/12/24 00:04
INR 1.22 11/12/24 00:04
APTT 34.5 Sec (23.4-35.0) 11/12/24 00:04
11/12/24
11:29
Lcn-R-Gdqrvvileoa Pept 2670
Physical Exam
Constitutional: No acute distress and Comfortable
EENT: Anicteric
Cardiovascular: Rhythm & rate is regular
Respiratory: Respiratory effort normal and Wheeze Present
GI: Soft
Neuro/Psych: AO x 3
Data Reviewed
-
Date of Service: November 14, 2024
Medical Decision Making: Reviewed Test Results
EKG: Tracing Personally Visualized and interpreted (paced)
Echo: Report Reviewed by me
Labs: Labs Reviewed by me
--- NOTE | 2024-11-14 15:52 | W.PN.GI.CBS2 ---
Today's Communication / Plan
-
Plan:
-Cirrhosis of the liver noted on recent imaging-r/o MASLD vs +/- cardiac cirrhosis
Currently getting dialysis through cardiology, creatinine seems to be improving
alpha-fetoprotein pending
CT scan of the chest done this morning showed moderate amount of abdominal pelvic ascites, diagnostic paracentesis tomorrow, if okay with nephrology/cardiology, we could do a therapeutic paracentesis with IV albumin as well. check SAAG, total
protein in the ascitic fluid to r/o cardiac ascites
2 g sodium Diet
Daily weight
Monitor electrolytes and replete
Currently on carvedilol which would be beneficial if there is any esophageal varices
He will need to follow-up with Dr. Butt, his primary sales correspondence clerk for an endoscopy in the future
Patient started on lactulose 20 g twice a day and Xifaxan, will titrate lactulose dose based on bowel movements. Could stop prior to D/C
- Rectal bleeding
No further active bleeding at this time
Will continue to monitor
Plavix is on hold since admission
Will follow
Assessment / Plan
-
74-year-old male with past medical history CAD status post CABG x 3, PAD left femoral endarterectomy with bilateral iliac artery stents (2019) on aspirin and Plavix, V. tach on Amio status post ICD, CHF with reduced EF, hypertension, diabetes,
hyperlipidemia, prostate cancer status post XRT, pneumonia, left-sided effusion recent diagnosis of anemia with thrombocytopenia that was being worked up as an outpatient by hematology status post iron infusion who presents to the emergency room
with 4-day history of rectal bleeding. Asked to evaluate for the same. The patient states that approximately 4 days ago he started having some bright red blood per rectum on the tissue and in the bowl. This was a small amount. 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
started to get mat making machine tender and then yesterday he started to have some darker amount of blood but this was more maroon color. He did state that there were some clots in it. He does strain on occasion to have bowel movements. He does have a cough, he
is also had some increased shortness of breath. He had an episode of red blood overnight. None further for nursing this morning. Presentation WBC 5.7, hemoglobin 8.9, platelets 98. Repeat pending. Did have 1 episode of red blood overnight.
None further. Patient was transfused 2 units PRBC this am. Awaiting repeat labs. Discussed with nursing. Rectal exam performed by myself without any external hemorrhoids, no obvious masses, dried blood on the outside of his skin. Scant red blood
on rectal exam. Patient had a virtual colonoscopy 01/2024 that was negative. His last endoscopic colonoscopy was approximately 8 years ago that was 'normal' per patient. Records unavailable to us. He has never had an endoscopy before. He is
followed by Dr. Daquan [facility] for elevated LFTs He had a recent ultrasound records unavailable to us. Although Dr. Pickard wanted him to have an upper endoscopy to rule out varices when he saw him approx 6 weeks ago. He has had increasing lower
extremity edema prompting increase in Lasix by cardiology. CT imaging here confirming cirrhosis. The patient does have a history of prostate cancer status post XRT however with no prior history of rectal bleeding in the past. Recent consult by
Criselda for low Hgb and PLT per . Had iron per . Patient has also been a little 'sleepy' past couple days which thought from back pain. Patient has some asterixis on exam. He is AAO x3.
Impression:
Lower GI bleed-> scant rectal bleeding on rectal, no obvious mass, hemorrhoid or rectal varices identified.
-> Hx prostate Ca s/p XRT
-> Virtual [place] 01/2024, last endoscopic colonoscopy 8 yrs ago per patient/, (held off secondary to comorbidities and ASA/Plavix)
Cirrhosis on CT Imaging, followed by Dr. Butt-> There was talks of EGD to r/o varices 6 weeks ago based on US, therefore likely seen on imaging at that time as well as thrombocytopenia and chronic elevated LFTs. Was told about probable progression
in past.
Ascites
Asterixis
HFrEF hx VT with ICD
MARIA DOLORES on CKD
Elevated Lipase, likely secondary to increased renal function as patient without any abd pain or signs of pancreatitis.
Left pleural effusion
Plan:
-Cirrhosis of the liver noted on recent imaging-r/o MASLD vs +/- cardiac cirrhosis
Currently getting dialysis through cardiology, creatinine seems to be improving
alpha-fetoprotein pending
CT scan of the chest done this morning showed moderate amount of abdominal pelvic ascites, diagnostic paracentesis tomorrow, if okay with nephrology/cardiology, we could do a therapeutic paracentesis with IV albumin as well. check SAAG, total
protein in the ascitic fluid to r/o cardiac ascites
2 g sodium Diet
Daily weight
Monitor electrolytes and replete
Currently on carvedilol which would be beneficial if there is any esophageal varices
He will need to follow-up with Dr. Butt, his primary sales correspondence clerk for an endoscopy in the future
Patient started on lactulose 20 g twice a day and Xifaxan, will titrate lactulose dose based on bowel movements. Could stop prior to D/C
- Rectal bleeding
No further active bleeding at this time
Will continue to monitor
Plavix is on hold since admission
Will follow
Subjective
Subjective
Date of Service: November 14, 2024
Patient denies any abdominal pain, nausea or vomiting. Tolerating diet. No bowel movement today and no blood on the underwear/sheets
Objective
Data Reviewed
Laboratory Data:
Laboratory Results
11/14/24 06:28
11/14/24 06:28
Laboratory Results
PT 15.9 Sec (11.4-14.6) H 11/12/24 00:04
INR 1.22 11/12/24 00:04
APTT 34.5 Sec (23.4-35.0) 11/12/24 00:04
Total Bilirubin 1.5 mg/dl (0.2-1.3) H 11/14/24 06:28
AST 112 U/L (17-59) H 11/14/24 06:28
ALT 114 U/L (0-50) H 11/14/24 06:28
Alkaline Phosphatase 124 U/L (38-126) 11/14/24 06:28
Lipase 616 U/L (23-300) H 11/12/24 00:04
Vital Signs and I&O:
Vital Signs
Temp Pulse Resp BP Pulse Ox
97.9 F 62 22 100/56 91
11/14/24 11:41 11/14/24 14:06 11/14/24 14:06 11/14/24 14:06 11/14/24 14:06
I&O
11/13/24 11/14/24 11/15/24
06:59 06:59 06:59
Intake Total 250 / 250 1200 / 1200
Output Total 875 / 875 1200 / 1200 625 / 625
Balance -625 / -625 0 / 0 -625 / -625
Physical Exam
Physical Exam
GI: Soft, Distended and Non Tender
--- NOTE | 2024-11-14 16:50 | W.PN.PUL3 ---
Addendum entered and electronically signed by Ryan Willis MD 11/15/24 08:02:
Patient seen and evaluated on 11/14/2024
Original Note:
Today's Communication / Plan
-
Start budesonide
Recommend paracentesis given moderate-large amount on CT Chest imaging
Observe off ABx
Management of GI bleed to primary team + GI
Mucolytics with vest if can fit
Submit sputum Cx given tree in bud with nodular opacities seen in RML/RLL
Pulmonary service will continue to follow along
Assessment
-
Assessment: 74-year-old male with a past medical history of hypertension, hyperlipidemia, chronic cough, DM type II, history of prostate cancer, history of VT s/p AICD (02/2008), CAD s/p CABG (1994) + coronary stent, chronic systolic heart failure
with diastolic dysfunction, ICM, chronic amiodarone therapy and PAD s/p bilateral common iliac artery stents who presents with rectal bleeding and weakness for 1 week. Patient reported that he started clots as well. Initially in the ER he was
afebrile with pulse rate 76, respiratory rate 17, BP 90/53, and saturating 96% on room air.. Initial labs pertinent for Hb 8.9, platelet count 98, sodium 130, potassium 5.3, creatinine 3.0, lipase 616, and urinalysis slightly cloudy with moderate
bacteria. Urine culture was collected. CXR showed a moderate left-sided pleural effusion. Of note he recently had a thoracentesis on 11/03/2024 where IR removed 1100 cc of serosanguineous transudative pleural fluid. He was started on a PPI in the
ER and admitted to the IMU for further care.. Cardiology was consulted given his history of CHF. Diuresis was started and GI was also consulted as he has ascites. 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
future for an endoscopy. On 11/13, patient was short of breath and was found to be wheezing. Pulmonary service now consulted for additional management/recommendations.
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
left lung base, chronic amiodarone therapy, PAD s/p bilateral common iliac artery stents
Impression:
#Wheezing, likely due to chronic cough in the setting of acute decompensated heart failure and left-sided pleural effusion
#Left-sided pleural effusion s/p thoracentesis on 11/03/2024 revealing transudative effusion
#Cirrhosis to suspected to be from chronic hepatic congestion from heart failure
#Acute on chronic systolic heart failure with LVEF 35% with inferior and anteroseptal hypokinesis via TTE from 11/12/2024
#Mild�moderate TR with pulmonary hypertension (mild � PASP: 33 mmHg via TTE from 11/12/2024; his mPAP was 36 in July 2020 via [facility] at the time)
#Rectal bleeding
#Acute blood loss anemia due to rectal bleeding
#Acute thrombocytopenia
#Hyponatremia
#MARIA DOLORES (prior creatinine from March 2021 was 1.1)
#Transaminitis
#Abnormal urinalysis with moderate urine bacteria and slightly cloudy appearance
#Former tobacco smoker (1PPD x 15-20 years - quit 1994) with centrilobular emphysema seen on imaging
Plan:
- Patient CT abdomen/pelvis from 11/12/2024 shows tree-in-bud nodular opacities in the right lower lobe with bronchial wall thickening and a medial right lower lobe consolidative opacity
- This is concerning for an infection, however I do not have prior imaging hence unclear if this is a resolving infection or a new one
- Multiple courses of antibiotics since end of July 2024, including doxycycline, amoxicillin, Zithromax and cefuroxime --> cough has persisted despite these ABx
- He is afebrile, and his cough is not worsening --> observe off ABx for now
- Could be that he has a microbe that is resistant to these antibiotics he has received or there could be an infection from NTM vs fungus
- Patient's prior CT chest from 02/29/2024 was personally reviewed by me, showing a small left-sided pleural effusion, trace right-sided pleural effusion, and no evidence of tree-in-bud nodular opacities or consolidation at that time
- Considering he has undergone multiple courses of ABx with persistence of his cough, CT Chest obtained today (11/14) --> shows centrilobular emphysema, loculated left-sided pleural effusion in addition to moderate-large amount of ascites, with
patchy nodular opacities with tree-in--bud in medial RML with bronchial wall thickening in proximal RML and posteromedial RLL, as well as right hilar + subcarinal lymphadenopathy; believe majority of left lung consolidation is from compressive
atelectasis
- Regarding his cough, continue with mucinex and nebulized albuterol. Continue nebulized 3% with percussor chest PT (use vest if it can fit him)
- Given he is wheezing today (11/14), start budesonide
- If he is able to submit a sputum Cx, then that would be helpful
- Outpatient follow up with repeat CT Chest --> if RML/RLL nodular opacities persist, would consider bronchoscopy with BAL to evaluate further for NTM vs fungal disease, and possibly do EBUS-FNA if lymph nodes remain enlarged
- Outpatient PFTs
- Management of cirrhosis and rectal bleeding to primary team and GI
- Follow up AFP
- Given that his left sided pleural effusion is likely due his ascites with displacement of ascitic fluid into pleural space through diaphragm, I recommend performing paracentesis instead of thoracentesis. If thora is performed but ascitic fluid
remains, then the pleural fluid will not slow down as quickly as if a para was performed.
- Maintain SpO2 >90-94% with supplemental O2 as needed
- prn nebulized bronchodilators - not currently bronchospastic
- Incentive spirometer encouraged q1hr while awake
- Replete electrolytes with K>4, Mg>2
- Trend H/H and transfuse if needed to keep Hb>7-8g/dL; keep plt>50k and INR<1.8
- Maintain euglycemia with goal BG >100 and <180
- DVT ppx: SCDs given his GI bleed
Pulmonary service will continue to follow along.
Data:
CT abdomen/pelvis without contrast 11/12/2024:
1. Small amount of peritoneal ascites, new compared to prior CT dated 12/01/2023.
2. Nodular contour of the liver, suggestive of hepatic cirrhosis.
3. Liver is hyperattenuating relative to the spleen, which may be seen in the setting of hemachromatosis, Mando's disease, glycogen storage disease, or drug toxicity.
4. Splenomegaly.
5. Left pleural effusion, partially imaged. Right lower lobe consolidation, which may represent atelectasis or pneumonia.
Total time spent today was 38 minutes for this encounter. Time includes reviewing laboratory test/imaging results, reviewing pertinent medical records, obtaining and reviewing medical history, performing an appropriate exam, ordering medications,
tests and procedures. Time also includes documentation of this encounter, coordinating patient care and communicating with other healthcare professionals. Total time does not include separately billed tests performed on this date of service.
Subjective Data
-
Date of Service:
Date of Service: November 14, 2024
Chief Complaint: Pulmonary Follow Up
Subjective:
Patient was seen and evaluated today at bedside (late note entry). Creatinine improving today. Resting in bed receiving nebulizer with at bedside and other male family member. He says he feels similar SOB today c/t yesterday. He denies
audible wheezing. Still with similar wet sounding cough. Denies chest pain. wants to know when they are going to remove the fluid from his belly.
Review of Systems
General: Other (negative unless mentioned above)
Objective Data
Data Reviewed
Vital Signs / I&O / Oxygen:
Vital Signs
Temp Pulse Resp BP Pulse Ox
98.4 F 62 16 97/48 93
11/14/24 07:55 11/14/24 10:00 11/14/24 10:00 11/14/24 08:24 11/14/24 08:40
Intake and Output
11/13/24 11/14/24 11/15/24
06:59 06:59 06:59
Intake Total 250 / 250 1200 / 1200
Output Total 875 / 875 1200 / 1200
Balance -625 / -625 0 / 0
SaO2 93
Nasal Cannula flow liters per 2
minute
Physical Exam
General: Respiratory Distress (negative), Comfortable, Chills (negative), Sweats (negative) and Other (obese male in NAD)
HEENT: Normocephalic, Anicteric and Other (thick neck)
Cardiovascular: Peripheral Edema (+2 LE pitting edema bilaterally) and Other (normal rate)
Respiratory: Wheeze (bilaterally upon expiration), Crackles (left>right), Rhonchi (bilateral) and Non-Labored Respirations
GI: Soft, Distended (abdominal distension with fluid in addition to obesity), Non Tender and Normal Bowel Sounds
Neurology: Awake, Alert, Tremors (negative) and Other (slow to respond to questions/flat affect)
Skin: Warm, Dry and Cyanosis (negative)
Labs/Micro/Reports
Lab Data
11/14/24 06:28
11/14/24 06:28
Microbiology
11/12/24 04:54 Urine Urine Culture - Final
No Significant Growth
[2024-11-14 17:58] LABS: Glucose - Point of Care 121 mg/dl (70-99)
--- NOTE | 2024-11-14 18:58 | PTCARENOTE ---
Patient states that he cut his scrotum on sharp part of Plastic air cushion...RN cleansed cut and applied dry gauze. Small bloody drainage. Wound added to flowsheets
[2024-11-14] MEDS: PULMICORT 0.5 MG INH (19:33)
[2024-11-14] MEDS: COREG 6.25 MG PO (21:08)
[2024-11-14] MEDS: CRESTOR 10 MG PO (21:08)
[2024-11-14] MEDS: ASPIR LOW (ENTERIC COATED) 81 MG PO (21:08)
[2024-11-14 22:56] LABS: Glucose - Point of Care 187 mg/dl (70-99)
[2024-11-15] VITALS (14 sets, daily range): BP systolic 64–147; BP diastolic 46–118; BMI 32.4
[2024-11-15 04:26] LABS: Hematocrit 27.6 % (39.0-52.0); Hemoglobin 9.2 g/dL (13.0-18.0); Mean Corp Hgb Conc. 33.3 g/dL (33.0-37.0); Mean Corpuscular Volume 100.0 fL (80.0-94.0); Platelet Count 81 10^3/uL (130-400); Red Cell Dist. Width 16.5 % (11.5-14.5)
--- NOTE | 2024-11-15 04:59 | PTCARENOTE ---
Assumed care of pt from chraleen RN. Pt aaox3. V-paced on the monitor. SpO2 96% on RA. VS and assessment as documented. No acute events overnight. Pt resting in bed with call ralph in reach.
[2024-11-15 05:16] LABS: ALT (SGPT) 121 U/L (0-50); AST (SGOT) 118 U/L (17-59); Albumin 3.2 g/dl (3.5-5.0); Alkaline Phosphatase 120 U/L (38-126); Blood Urea Nitrogen 61 mg/dl (9-20); Calcium 8.5 mg/dl (8.4-10.2); Carbon Dioxide 24 mmol/L (22-30); Chloride 104 mmol/L (98-107); Estimated Creatinine Clearance 31 ml/min; Glucose 126 mg/dl (70-99); Potassium 4.7 mmol/L (3.5-5.1); Sodium 133 mmol/L (135-145); Total Protein 6.2 g/dl (6.3-8.2); eGFR 27.28
[2024-11-15] MEDS: DUONEB 3 ML INH ×3 (07:25→19:11)
[2024-11-15] MEDS: SODIUM CHLORIDE 3% FOR INHALATION 1 VIAL INH ×2 (07:26→13:54)
[2024-11-15] MEDS: PULMICORT 0.5 MG INH ×2 (07:26→19:12)
--- NOTE | 2024-11-15 07:52 | W.PN.CD ---
Today's Communication / Plan
-
stable from cardiac perspective for paracentesis
Impression / Plan
-
I/P: 74M with ventricular tachycardia (on amiodarone, Medtronic ICD), coronary artery disease status post bypass, HFrEF, hypertension, hypercholesterolemia, PAD, cirrhosis of the liver, type 2 diabetes mellitus, and prior prostate cancer presented
to the emergency department with a chief complaint of BRBPR.
Primary Immigration Attorney: Dr. Damon ([facility])
HFrEF, acute on chronic, severe requiring hospitalization for IV diuresis with close monitoring of labs/tele
Ischemic cardiomyopathy, EF 35%
- Dry weight thought to be approx 100 kg
-GDMT as tolerated:
-KYLER/ARB/ARNI: Entresto on hold with MARIA DOLORES
-SGLT2 inhibitor: None with MARIA DOLORES
-Aldosterone agonist: Spironolactone on hold with MARIA DOLORES
-Beta hemant: Carvedilol 6.25 mg bid (recently lowered)
-Isosorbide/Hydralazine:�not started due to low BP
-ICD: Implanted (Medtronic)
-has been getting lasix 80mg IV daily per nephrology; will not give yet since undergoing paracentesis today
Pleural effusion, left consider repeat
- Moderate on CXR in ER
- Status post left thoracentesis 11/03/2024 for 1100 mL -transudative by lights
Cirrhosis , ascites
-plan for paracentesis today per GI noted
MARIA DOLORES
- BUN 35, creatinine 1.9 in August
- 3.0 on admission now 2.4
- seems to be improving with diuresis
Anemia, type unknown, acute on chronic
- H/H ~12/31 while he was in [facility]
- DAPT on hold, after evaluation by GI cardiology is okay with single agent--will resume ASA 81mg tomorrow (ordered)
CAD, s/p CABG
- Stable without chest pain
- Cardiac PET last month consistent with inferior and apical scar. No reversible defects.
-resume ASA 81mg tomorrow
-cont statin
Ventricular tachycardia
- none on tele
- On amiodarone and coreg: continue
- s/p Medtronic ICD
Mild , mild/moderate TR
-outpatient f/u
Type 2 diabetes mellitus, per primary service
Thrombocytopenia, chronic, platelets 109 at discharge from [facility]
Cirrhosis of the liver, follows with Dr. Butt
PAD, follows with Iftikhar Cano femoral endarterectomy (2019), chronically occluded superficial femoral arteries bilaterally
Carotid artery stenosis, high-grade, >90% bilaterally, followed by Vascular
MARION
Physical Exam
Vital Signs/Labs
Vital Signs
Temp Pulse Resp BP Pulse Ox
98.3 F 62 16 108/82 93
11/15/24 03:00 11/15/24 07:32 11/15/24 07:32 11/15/24 06:00 11/15/24 07:32
11/14/24 11/15/24 11/16/24
06:59 06:59 06:59
Actual Weight 101.69 kg 102.5 kg
11/15/24 04:15
11/15/24 04:15
PT 15.9 Sec (11.4-14.6) H 11/12/24 00:04
INR 1.22 11/12/24 00:04
APTT 34.5 Sec (23.4-35.0) 11/12/24 00:04
11/12/24
11:29
[id number] Pept 2670
Physical Exam
Constitutional: No acute distress and Comfortable
EENT: Moist mucous membranes
Cardiovascular: Rhythm & rate is regular, Pedal edema present, JVD present and Systolic murmur present
Respiratory: Respiratory effort normal and Wheeze Present
GI: Distention present
Neuro/Psych: AO x 3
Data Reviewed
-
Date of Service: November 15, 2024
EKG: Other (Tele: AV paced)
Echo: Report Reviewed by me
Labs: Labs Reviewed by me
[2024-11-15] MEDS: NOVOLOG FLEXPEN-LOW RESISTANCE SC ×2 (08:07→17:29)
--- NOTE | 2024-11-15 08:08 | PTCARENOTE ---
Pt AAOx3 , OOB to chair recieving breathing treatment. Pt has generaslized weakness with +2 BLE edema. Pt on RA with some CHRISTIAN. Pt has aicd pacer and is AV paced and at times V paced
[2024-11-15 08:13] LABS: Glucose - Point of Care 138 mg/dl (70-99)
[2024-11-15] MEDS: MUCINEX 600 MG PO ×2 (08:28→21:05)
[2024-11-15] MEDS: COREG 6.25 MG PO (08:28)
[2024-11-15] MEDS: XIFAXAN 550 MG PO ×2 (08:30→21:05)
[2024-11-15] MEDS: DUPHALAC/CHRONULAC 20 GRAMS PO ×2 (08:30→21:06)
[2024-11-15] MEDS: PACERONE 200 MG PO (08:30)
[2024-11-15] MEDS: NSS (PRESERVATIVE FREE) 10 ML IV (08:31)
[2024-11-15] MEDS: PROTONIX IV 40 MG IV (08:31)
[2024-11-15] MEDS: ROBITUSSIN 200 MG PO ×3 (08:33→21:09)
--- NOTE | 2024-11-15 09:09 | W.PN.PUL3 ---
Today's Communication / Plan
-
More lethargic today--repeat ammonia level and check VBG
SOB is likely multifactorial, not resolved with thora or para, check bedside PFT
MARION likely, we discussed OP FU
Pseudomonas noted, but unclear if this is causing or contributing to issues, would repeat sputum culture, ID consulted
Stop airway clearance, he does not wish to continue
Discussed care extensively with his family at bedside
Assessment
-
74-year-old male with a past medical history of hypertension, hyperlipidemia, chronic cough, DM type II, history of prostate cancer, history of VT s/p AICD (02/2008), CAD s/p CABG (1994) + coronary stent, chronic systolic heart failure with
diastolic dysfunction, ICM, chronic amiodarone therapy and PAD s/p bilateral common iliac artery stents who presents with rectal bleeding and weakness for 1 week. Patient reported that he started clots as well. Initially in the ER he was afebrile
with pulse rate 76, respiratory rate 17, BP 90/53, and saturating 96% on room air.. Initial labs pertinent for Hb 8.9, platelet count 98, sodium 130, potassium 5.3, creatinine 3.0, lipase 616, and urinalysis slightly cloudy with moderate bacteria.
Urine culture was collected. CXR showed a moderate left-sided pleural effusion. Of note he recently had a thoracentesis on 11/03/2024 where IR removed 1100 cc of serosanguineous transudative pleural fluid. He was started on a PPI in the ER and
admitted to the IMU for further care.. Cardiology was consulted given his history of CHF. Diuresis was started and GI was also consulted as he has ascites. 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
for an endoscopy. On 11/13, patient was short of breath and was found to be wheezing. Pulmonary service now consulted for additional management/recommendations.
Impression:
Wheezing, likely due to chronic cough in the setting of acute decompensated heart failure and left-sided pleural effusion
Left-sided pleural effusion s/p thoracentesis on 11/03/2024 revealing transudative effusion
Cirrhosis to suspected to be from chronic hepatic congestion from heart failure
Acute on chronic systolic heart failure with LVEF 35% with inferior and anteroseptal hypokinesis via TTE from 11/12/2024
Mild�moderate TR with pulmonary hypertension (mild � PASP: 33 mmHg via TTE from 11/12/2024; his mPAP was 36 in July 2020 via [facility] at the time)
Rectal bleeding
Acute blood loss anemia due to rectal bleeding
Acute thrombocytopenia
Hyponatremia
MARIA DOLORES (prior creatinine from March 2021 was 1.1)
Transaminitis
Abnormal urinalysis with moderate urine bacteria and slightly cloudy appearance
Pseudomonas + sputum 11/14/24
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
Hypertension
Hyperlipidemia
DM type II
History of prostate cancer s/p radiation
History of VT s/p AICD 2007
CAD s/p CABG (1994)
Anemia
Chronic cough
Chronic systolic heart failure with diastolic dysfunction/ICM
Stable 3 mm nodule in left lung base
Chronic amiodarone therapy
PAD s/p bilateral common iliac artery stents 09/29/2018
Former tobacco smoker (1PPD x 15-20 years - quit 1994)
Centrilobular emphysema seen on imaging
Plan:
Currently 93-94% on RA
Still has SOB complaints, not improved with thora or para completed 11/[address] abdomen/pelvis from 11/12/2024 shows tree-in-bud nodular opacities in the right lower lobe with bronchial wall thickening and a medial right lower lobe consolidative opacity
CT Chest obtained today (11/14) --> shows centrilobular emphysema, loculated left-sided pleural effusion in addition to moderate-large amount of ascites, with patchy nodular opacities with tree-in-bud in medial RML with bronchial wall thickening in
proximal RML and posteromedial RLL, as well as right hilar + subcarinal lymphadenopathy; believe majority of left lung consolidation is from compressive atelectasis
Multiple courses of antibiotics since end of July 2024, including doxycycline, amoxicillin, Zithromax and cefuroxime --> cough has persisted despite these ABx
He is afebrile, and his cough is not worsening --> observe off ABx for now
Chronic cough history is noted, never had PFTs
Suspect COPD-can obtain bedside study
Regarding his cough, continue with mucinex and nebulized albuterol.
He does not wish to continue vest or Sodium nebs, will discontinue
Continue other nebs for now
SOB is likely multifactorial given CHF, possible COPD, obesity, liver disease, MARION suspected
Sputum wtih pseudomonas but not sure if this a true result/few bacteria noted
ID consult obtained
Can repeat sputum culture
Outpatient follow up with repeat CT Chest --> if RML/RLL nodular opacities persist, would consider bronchoscopy with BAL to evaluate further for NTM vs fungal disease, and possibly do EBUS-FNA if lymph nodes remain enlarged
Agree with speech evaluation
Diet advancement per team
Management of cirrhosis and rectal bleeding to primary team and GI
Follow up AFP
s/p paracentesis 2L removed
Prior ammonia level 97--on lactulose 20 BID
Seems more lethargic today, falling asleep in chair
Will check VBG and recheck ammonia level
Snoring noted, likely has underlying MARION as well, not yet diagnosed
CPAP could be helpful
Incentive spirometer encouraged q1hr while awake
Replete electrolytes with K>4, Mg>2
PT/OT evals
- Trend H/H and transfuse if needed to keep Hb>7-8g/dL; keep plt>50k and INR<1.8
- Maintain euglycemia with goal BG >100 and <180
- DVT ppx: SCDs given his GI bleed
Discussed with patient and /family at bedside extensively
Pulmonary service will continue to follow along.
Data:
CT abdomen/pelvis without contrast 11/12/2024:
1. Small amount of peritoneal ascites, new compared to prior CT dated 12/01/2023.
2. Nodular contour of the liver, suggestive of hepatic cirrhosis.
3. Liver is hyperattenuating relative to the spleen, which may be seen in the setting of hemachromatosis, Mando's disease, glycogen storage disease, or drug toxicity.
4. Splenomegaly.
5. Left pleural effusion, partially imaged. Right lower lobe consolidation, which may represent atelectasis or pneumonia.
CT Chest - Moderate loculated left pleural effusion. Moderate left lower lobe consolidation concerning for pneumonia. Moderate lingular consolidation concerning for pneumonia. Mild right lower lobe consolidation probably atelectasis. Tiny
right pleural effusion. Cardiomegaly. Moderate abdominopelvic ascites. Probable splenomegaly. Nodular hepatic margin suggesting cirrhosis
ECHO 11/12/24: 1. Severely dilated LV with moderately reduced systolic function.
2. LVEF is approximately 35% by Kearney's method of this. Inferior and anteroseptal hypokinesis.
3. Normal RV size and function.
4. Mild aortic stenosis.
5. Mild to moderate tricuspid regurgitation. Estimated PASP of 33 mmHg.
6. Compared to prior from July 21, 2020, there is new mild aortic stenosis.
Total time spent today was 51 minutes for this encounter. Time includes reviewing laboratory test/imaging results, reviewing pertinent medical records, obtaining and reviewing medical history, performing an appropriate exam, ordering medications,
tests and procedures. Time also includes documentation of this encounter, coordinating patient care and communicating with other healthcare professionals. Total time does not include separately billed tests performed on this date of service.
Subjective Data
-
Date of Service:
Date of Service: November 15, 2024
Chief Complaint: Pulmonary Follow Up
Objective Data
Data Reviewed
Vital Signs / I&O / Oxygen:
Vital Signs
Temp Pulse Resp BP Pulse Ox
98.7 F 68 16 101/55 93
11/15/24 07:08 11/15/24 08:28 11/15/24 07:32 11/15/24 08:28 11/15/24 07:32
Intake and Output
11/14/24 11/15/24 11/16/24
06:59 06:59 06:59
Intake Total 1200 / 1200
Output Total 1200 / 1200 875 / 875
Balance 0 / 0 -875 / -875
SaO2 93
Nasal Cannula flow liters per 2
minute
Physical Exam
General: Respiratory Distress (negative), Comfortable, Chills (negative), Sweats (negative) and Other (obese male in NAD)
HEENT: Normocephalic, Anicteric and Other (thick neck)
Cardiovascular: Peripheral Edema (+2 LE pitting edema bilaterally) and Other (normal rate)
Respiratory: Wheeze (bilaterally upon expiration), Crackles (left>right), Rhonchi (bilateral) and Non-Labored Respirations
GI: Soft, Distended (abdominal distension with fluid in addition to obesity), Non Tender and Normal Bowel Sounds
Neurology: Awake, Alert, Tremors (negative) and Other (slow to respond to questions/flat affect)
Skin: Warm, Dry and Cyanosis (negative)
Labs/Micro/Reports
Lab Data
11/15/24 04:15
11/15/24 04:15
Microbiology
11/14/24 11:36 Sputum Gram Stain - Preliminary
11/12/24 04:54 Urine Urine Culture - Final
No Significant Growth
--- NOTE | 2024-11-15 09:23 | W.PN.HOSP.TC ---
Today's Communication/Plan
-
ID consult for left lower lobe pneumonia again with sputum culture patient Pseudomonas.
� Transition to cefepime from Zosyn for renal sufficiency. Discontinue vancomycin as no MRSA recovered.
- Unclear if sputum culture Pseudomonas is a colonizer versus true pathogen.
Paracentesis with 2 L removed.
Gastroenterology recommendations
- SAAG greater than 1.1 and total protein less than 2.5, suggesting portal hypertensive etiology for ascites
� No SBP noted. No need for IV albumin
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
Pending pulmonology recommendations regarding if thoracentesis is indicated.
Assessment / Plan
Assessment / Plan
Impression
Mr. Jonh Rodriguez is a 74-year-old male with past medical history significant for CAD status post CABG and stenting, peripheral arterial disease status post stenting, on dual antiplatelet therapy, CHF with depressed EF and history of VT status post
ICD on amiodarone, type 2 diabetes, chronic pulmonary hypertension, recent pneumonia with left-sided pleural effusion status post thoracenteses 8 days ago presented to the emergency department with bright red blood per rectum. Has heme positive red
stool in the ED.
Plan
# Pneumonia
# Cough, chronic COPD
� CT chest: Left lower lobe pneumonia
� Sputum culture positive for Pseudomonas. Unclear if sputum culture Pseudomonas is a colonizer versus true pathogen.
ID consult
� Transition to cefepime from Zosyn for renal sufficiency. Discontinue vancomycin as no MRSA recovered.
# Left pleural effusion
thoracentesis on 11-03-25-1100 cc of serosanguineous fluid-transudate. Negative for malignant cells.
- Continue with Lasix
Pulmonology consulted
# Ascites and transaminitis
AST ALT in the 100s. Ammonia elevated at 97. Total bili 1.2 to 1.5
recalls elevated LFTs since 2 years ago
- likely secondary to fluid overload/heart failure. Follow-up after Lasix
GI recommendations
- Okay to restart aspirin. Continue holding Plavix
� If loose stool, decrease lactulose 20 g twice daily.
� Pending alpha-fetoprotein
- SAAG greater than 1.1 and total protein less than 2.5, suggesting portal hypertensive etiology for ascites
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
Follow-up with Dr. Butt as per cv tech for endoscopy outpatient
# GI bleed
Hemoglobin stable at 9. baseline hemoglobin was 10.2 in August. Type and screen-got 1 unit of PRBC
# Acute on chronic HFrEF
# Ischemic cardiomyopathy. Coronary disease with history of stent, CABG in 1994
# Ventricular tachycardia, ventricular fibrillation. S/P-BiV ICD/pacer original placement 2007 with revision generator changed in 2013
8 pound weight gain
Patient stated sysbp usually 88-95
- Hold Entresto and Aldactone
� Coreg 6.25 mg P.o. twice daily
- Amio for Vtach
Cardiology recommendations
� Echo EF 35%
� GDMT: Entresto, SGLT2, spironolactone held due to MARIA DOLORES. Carvedilol 12.5 twice daily. [employer] ICD
� IV Lasix 40 to 80 mg per nephrology
# MARIA DOLORES on CKD
Likely cardiorenal
Creatinine 3 in the ED. Down to 2.4
eGFR 25
Hold Entresto, Metformin and Aldactone
Lasix as needed
Nephrology consulted
� Keep SBP above 90
# Thrombocytopenia
New. Platelet count 80,000
- hold antiplatelet Plavix
# Microscopic hematuria. OP Urology F/U
History of nephrolithiasis
History of prostate cancer with history of radiation
CT-No nephrolithiasis or hydronephrosis on either side. No aggressive renal mass appreciated. The ureters are nondilated.The prostate gland is within normal limits.No significant bladder wall thickening or adjacent fat stranding.
# Hyperlipidemia- Statin
# Pulmonary hypertension
# Peripheral artery disease
# LBBB
# Ex Smoker
DVT prophylaxis-SCDs
Diet: 2 g sodium
Full code
Anticipated Discharge: > 48 hours
Subjective/Interval History
-
Date of Service: November 15, 2024
No acute events overnight. Patient denies having bowel movements for 2 days, but his last bowel movement was still bloody. He denies difficulty breathing, and feels his breathing is stable. Paracentesis was performed according to plan. 2000 cc
removed.
Patient had no complaints, other than a ulcerated in his gluteal folds, that he has noticed since he developed paroxysmal nocturnal dyspnea, so he has been sitting upright more while sleeping.
Objective Data
-
Labs:
Laboratory Results
11/15/24
04:15
WBC 6.4
Hgb 9.2 L
Hct 27.6 L
Plt Count 81 L
Sodium 133 L
Potassium 4.7
Chloride 104
Carbon Dioxide 24
BUN 61 H
Creatinine 2.4 H
Glucose 126 H
Calcium 8.5
Total Bilirubin 1.8 H
AST 118 H
ALT 121 H
Alkaline Phosphatase 120
Vital Signs:
Vital Signs
Temp Pulse Resp BP Pulse Ox
98.7 F 70 23 101/55 96
11/15/24 07:08 11/15/24 08:29 11/15/24 08:29 11/15/24 08:29 11/15/24 08:00
I&O
11/14/24 11/15/24 11/16/24
06:59 06:59 06:59
Intake Total 1200 / 1200
Output Total 1200 / 1200 875 / 875
Balance 0 / 0 -875 / -875
Review of Systems
-
History Source: Patient
All other systems: Reviewed and negative
Skin: Reports Sores (Between gluteal folds, a 1 cm ulcer with a bandage covering)
Physical Exam
-
General: Well Developed, Well Nourished, No Apparent Distress and Comfortable
HEENT: Normocephalic, Atraumatic, Moist Mucous Membranes, Anicteric, Nose Appears Normal and Ears Appear Normal
Respiratory: Wheezes (Diffuse wheezes in right lung stauffer) and Rales
Cardiac: S1/S2 and Irregular Rhythm
GI: Soft, Nontender, Normal Bowel Sounds and Distended
Musculoskeletal: No Clubbing, No Cyanosis, Edema, Right Lower Extrem and Edema, Left Lower Extrem
Skin: Warm, Dry and IV Access / Catheter Site (Left arm: Ecchymosis at prior IV site)
Neuro: Awake, Alert and Oriented; Negative Tremors (No resting tremors or asterixis)
Psych: Calm
Data Reviewed
-
Total Time Spent with Patient (in minutes): 25
Diagnostic Radiology: Report Reviewed by me
CT Scan: Report Reviewed by me
Ultrasound: Report Reviewed by me
Medical Tests (Nuc Med, Echo etc): Image personally visualized and interpreted
Labs: Labs Reviewed by me
--- NOTE | 2024-11-15 09:24 | W.PN.UPDATE ---
Addendum entered and electronically signed by Heriberto Ambrose MD 11/15/24 16:45:
likely [id number]
Original Note:
Update Note
Progress Note Update
I saw and evaluated the patient. I reviewed the resident�s note and agree with findings and plan as documented in the resident�s note.
Denies SOB.
Gen: NAD, Awake and alert
Eyes: EOMI, PERRLA, no scleral icterus.
Neck: supple.
CV: continues to remain RRR, +S1/S2, no m/r/g.
Resp: B/L wheezes, dec BS L base
Abd: +BS, soft, NT, ND
Skin: No rashes. no LE edema
Neuro: continues to remain CN 2-12 intact, non-focal.
Psych: Normal mood and affect.
11/14/24 11:36 Sputum Respiratory Culture - Preliminary
Pseudomonas species
11/14/24 11:36 Sputum Gram Stain - Preliminary
11/12/24 04:54 Urine Urine Culture - Final
No Significant Growth
Echo: EF 35%. Severely dilated LV with moderately reduced systolic function. Mild to moderate tricuspid regurgitation; estimated PASP of [address] A/P 11/12/24:
1. Small amount of peritoneal ascites, new compared to prior CT dated 12/01/2023.
2. Nodular contour of the liver, suggestive of hepatic cirrhosis.
3. Liver is hyperattenuating relative to the spleen, which may be seen in the setting of hemochromatosis, Mando's disease, glycogen storage disease, or drug toxicity.
4. Splenomegaly.
5. Left pleural effusion, partially imaged. Left lower lobe consolidation, which may represent atelectasis or pneumonia.
CXR 11/12/24: Moderate left pleural effusion. Cardiomegaly.
CT chest 11/14/24: Moderate loculated left pleural effusion. Moderate left lower lobe consolidation concerning for pneumonia. Moderate lingular consolidation concerning for pneumonia. Mild right lower lobe consolidation probably atelectasis. Tiny
right pleural effusion. Cardiomegaly. Moderate abdominopelvic ascites. Probable splenomegaly. Nodular hepatic margin suggesting cirrhosis. If the patient has emphysema, patient should be assessed for an annual low dose lung cancer CT program, as
pulmonary emphysema is an independent risk factor for lung cancer.
Acute GIB:
-p/w'd BRBPR (likely LGIB)
-Plavix contributed to GI bleeding and has been on hold since admission
-cont ASA
-Hb stable
Cirrhosis:
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
-GI following
-cont Lactulose/Rifaximin
-s/p Dx/Tx paracentesis today for 2L, check SAAG, total protein
MARIA DOLORES on CKD:
-baseline Cr 1.8
-likely due to CRS as well as meds including Entresto and Aldactone which are on hold
-renal following
-Cr improving
Acute hypoxemic respiratory failure due to acute on chronic HFrEF and, now, L-sided PNA:
-all imaging above (CXR on admission, CT A/P on admission, echo, CT chest)
-proBNP 2670
-s/p IV Lasix (dosing had been on a daily basis), now started on Lasix 80mg IV BID (11/15/25AM)
-daily wts, I/Os
-holding Entresto and Aldactone as above
-cont Coreg
-cards following
-Patient afebrile and without leukocytosis. On admission imaging findings regarding the left lower lobe consolidation were felt to be due to atelectasis.
-CT chest above. With findings concerning for left lower lobe pneumonia and sputum Cx with pseudomonas, start Zosyn/Vanco, c/s ID.
-may need repeat thoracentesis
-pulm following
Other problems:
Pancytopenia, now leukopenia has resolved
CAD s/p stent and CABG: cont BB/ASA
h/o VT s/p ICD: cont Amio
Pulm HTN
Hyponatremia, mild
Hyperkalemia, resolved
HLD: currently on statin which will be stopped if transaminases worsen
Acute transaminitis, likely due to volume O/L
Thrombocytopenia, trend (currently stable)
h/o prostate CA s/p XRT
PAD: cont ASA
LBBB
Obesity due to excess calories
Pt's updated at bedside.
FULL/SCDs (LGIB and thrombocytopenia), encourage ambulation
--- NOTE | 2024-11-15 09:45 | PHA.VAN.IN ---
Assessment
- Assessment
Renal Function: Unknown baseline
Concomitant Antimicrobials: piperacillin/tazobactam
Plan
- Plan
Initial / Loading Dose: 2000mg - administration pending
Maintenance Regimen: dosing by level
Monitoring: random 11/16 06
Pharmacokinetics Vancomycin I
- -
Patient Age: 74
Patient Sex: Male
Vancomycin Day #: 1
Indication: Pulmonary/Respiratory
Requesting Provider: Dr. Ambrose
Pertinent Antimicrobial Allergies:
erythromycin - per pt, contraindicated with his atorvastatin
Height / Weight:
Height 5 ft 10 in
Actual Weight 102.5 kg
Pertinent Past Medical History: BMI ~32
- Vital Signs / Lab Results
Temp Pulse Resp BP Pulse Ox
98.7 F 70 23 101/55 96
11/15/24 07:08 11/15/24 08:29 11/15/24 08:29 11/15/24 08:29 11/15/24 08:00
Lab Results - Hematology
11/12/24 11/13/24 11/14/24
11:29 04:22 06:28
WBC 4.7 L 4.6 L 4.9
11/15/24
04:15
WBC 6.4
Lab Results - Chemistry
11/12/24 11/13/24 11/14/24
11:29 04:22 06:28
BUN 71 H 70 H 70 H
Creatinine 2.8 H 2.9 H 2.6 H
Estimated Creat Clear 27 26 29
Albumin 3.0 L 3.1 L
11/15/24
04:15
BUN 61 H
Creatinine 2.4 H
Estimated Creat Clear 31
Albumin 3.2 L
Microbiology Results
11/14/24 11:36 Respiratory Culture - Preliminary
Sputum Pseudomonas species
Gram Stain - Preliminary
09/12/25 04:54 Urine Culture - Final
Urine No Significant Growth
--- NOTE | 2024-11-15 10:03 | W.PN.NEPH.PH ---
Today's Communication / Plan
-
cont diuretics
Assessment/Plan
-
Assessment
MARIA DOLORES
hyponatremia
Anemia
pancytopenia
HFrEF 35% with Moderate TR
SOB
cirrhosis
left pleural effusion
mild ascites
Plan
Continue diuresis with Lasix IV 80mg
Holding Entresto, Aldactone
Will except SBPs greater than 90
Follow BMP
pending thoro today
cr down 2.4
-
-
Date of Service: November 15, 2024
CC / HPI / ROS
-
Chief Complaint:
History of Present Illness:
Na stable 134
MARIA DOLORES/Cr down
diuresed somewhat with IV lasix for decompensated HFrEF
BP stable low
Review of Systems:
no CP/SOB
Labs
-
Labs:
WBC 6.4 10^3/uL (4.8-10.8) 11/15/24 04:15
RBC 2.76 10^6/uL (4.70-6.10) L 11/15/24 04:15
Hgb 9.2 g/dL (13.0-18.0) L 11/15/24 04:15
Hct 27.6 % (39.0-52.0) L 11/15/24 04:15
Plt Count 81 10^3/uL (130-400) L 11/15/24 04:15
Sodium 133 mmol/L (135-145) L 11/15/24 04:15
Potassium 4.7 mmol/L (3.5-5.1) 11/15/24 04:15
Chloride 104 mmol/L (98-107) 11/15/24 04:15
Carbon Dioxide 24 mmol/L (22-30) 11/15/24 04:15
BUN 61 mg/dl (9-20) H 11/15/24 04:15
Creatinine 2.4 mg/dL (0.7-1.3) H 11/15/24 04:15
eGFR 27.28 11/15/24 04:15
Glucose 126 mg/dl (70-99) H 11/15/24 04:15
Calcium 8.5 mg/dl (8.4-10.2) 11/15/24 04:15
Mop-T-Nqcapduxbdj Pept 2670 pg/ml 11/12/24 11:29
Albumin 3.2 g/dl (3.5-5.0) L 11/15/24 04:15
Physical Exam
-
Vital Signs:
Vital Signs
Temp Pulse Resp BP Pulse Ox
98.7 F 70 23 101/55 96
11/15/24 07:08 11/15/24 08:29 11/15/24 08:29 11/15/24 08:29 11/15/24 08:00
Cardiovascular:: Regular rate and rhythm
Respiratory:: Bilateral: Coarse
Lung Excursion:: Normal
Abdomen:: Nontender and Soft
Bowel Sounds:: Normal
Extremity Edema:: +2: Bilateral:
[2024-11-15] MEDS: ZOSYN 50 IV (11:19)
[2024-11-15 11:30] LABS: Glucose - Point of Care 204 mg/dl (70-99)
[2024-11-15] MEDS: VANCOCIN 540 MG IV (11:47)
[2024-11-15] MEDS: NOVOLOG FLEXPEN-LOW RESISTANCE 2 UNITS SC (12:16)
[2024-11-15 12:33] LABS: Body Fluid Second Tech US
--- NOTE | 2024-11-15 14:15 | W.PN.GI.CBS2 ---
Today's Communication / Plan
-
Plan:
-Cirrhosis of the liver noted on recent imaging-r/o MASLD
Reviewed ascitic flud analysis, SAAG >1.1 AND t PROTEIN <2.5 SUGGESTING PORTAL HYPERTENSIVE ETIOLOGY FOR THE ASCITES
No SBP noted. No need for iv albumin.
Still with hydrothorax, ? hepatic hydrothorax as per pulmonary.
If recurrent hydrothorax needed, to f/u with hepatology for further evaluation with TIPS if indicated.
On Abx for treatment of pneumonia causing cough
Currently getting diuresis per cardiology, creatinine improving
alpha-fetoprotein pending
11/04/24 CT scan of the chest showed moderate amount of abdominal pelvic ascites
Continue 2 g sodium Diet
Daily weight
Monitor electrolytes and replete
Currently on carvedilol which would be beneficial if there is any esophageal varices
He will need to follow-up with Dr. Butt, his primary multimedia designer for an endoscopy in the future
Patient started on lactulose 20 g twice a day and Xifaxan, will titrate lactulose dose based on bowel movements. Could stop prior to D/C
- Rectal bleeding
No further active bleeding at this time
Will continue to monitor
Plavix is on hold since admission
Will follow
Assessment / Plan
-
74-year-old male with past medical history CAD status post CABG x 3, PAD left femoral endarterectomy with bilateral iliac artery stents (2019) on aspirin and Plavix, V. tach on Amio status post ICD, CHF with reduced EF, hypertension, diabetes,
hyperlipidemia, prostate cancer status post XRT, pneumonia, left-sided effusion recent diagnosis of anemia with thrombocytopenia that was being worked up as an outpatient by hematology status post iron infusion who presents to the emergency room
with 4-day history of rectal bleeding. Asked to evaluate for the same. The patient states that approximately 4 days ago he started having some bright red blood per rectum on the tissue and in the bowl. This was a small amount. 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 He did state that there were some clots in it. He does strain on occasion to have bowel movements. He does have a cough, he
is also had some increased shortness of breath. He had an episode of red blood overnight. None further for nursing this morning. Presentation WBC 5.7, hemoglobin 8.9, platelets 98. Repeat pending. Did have 1 episode of red blood overnight.
None further. Patient was transfused 2 units PRBC this am. Awaiting repeat labs. Discussed with nursing. Rectal exam performed by myself without any external hemorrhoids, no obvious masses, dried blood on the outside of his skin. Scant red blood
on rectal exam. Patient had a virtual colonoscopy 01/2024 that was negative. His last endoscopic colonoscopy was approximately 8 years ago that was 'normal' per patient. Records unavailable to us. He has never had an endoscopy before. He is
followed by Dr. Daquan [facility] for elevated LFTs He had a recent ultrasound records unavailable to us. Although Dr. Pickard wanted him to have an upper endoscopy to rule out varices when he saw him approx 6 weeks ago. He has had increasing lower
extremity edema prompting increase in Lasix by cardiology. CT imaging here confirming cirrhosis. The patient does have a history of prostate cancer status post XRT however with no prior history of rectal bleeding in the past. Recent consult by
Ianhtmendoza for low Hgb and PLT per . Had iron per . Patient has also been a little 'sleepy' past couple days which thought from back pain. Patient has some asterixis on exam. He is AAO x3.
Impression:
Lower GI bleed-> scant rectal bleeding on rectal, no obvious mass, hemorrhoid or rectal varices identified.
-> Hx prostate Ca s/p XRT
-> Virtual [place] 01/2024, last endoscopic colonoscopy 8 yrs ago per patient/, (held off secondary to comorbidities and ASA/Plavix)
Cirrhosis on CT Imaging, followed by Dr. Butt-> There was talks of EGD to r/o varices 6 weeks ago based on US, therefore likely seen on imaging at that time as well as thrombocytopenia and chronic elevated LFTs. Was told about probable progression
in past.
Ascites
Asterixis
HFrEF hx VT with ICD
MARIA DOLORES on CKD
Elevated Lipase, likely secondary to increased renal function as patient without any abd pain or signs of pancreatitis.
Left pleural effusion
Plan:
-Cirrhosis of the liver noted on recent imaging-r/o MASLD
Reviewed ascitic flud analysis, SAAG >1.1 AND t PROTEIN <2.5 SUGGESTING PORTAL HYPERTENSIVE ETIOLOGY FOR THE ASCITES
No SBP noted. No need for iv albumin.
Still with hydrothorax, ? hepatic hydrothorax as per pulmonary.
If recurrent hydrothorax needed, to f/u with hepatology for further evaluation with TIPS if indicated.
On Abx for treatment of pneumonia causing cough
Currently getting diuresis per cardiology, creatinine improving
alpha-fetoprotein pending
11/04/24 CT scan of the chest showed moderate amount of abdominal pelvic ascites
Continue 2 g sodium Diet
Daily weight
Monitor electrolytes and replete
Currently on carvedilol which would be beneficial if there is any esophageal varices
He will need to follow-up with Dr. Butt, his primary multimedia designer for an endoscopy in the future
Patient started on lactulose 20 g twice a day and Xifaxan, will titrate lactulose dose based on bowel movements. Could stop prior to D/C
- Rectal bleeding
No further active bleeding at this time
Will continue to monitor
Plavix is on hold since admission
Will follow
Subjective
Subjective
Date of Service: November 15, 2024
Patient continues to have cough but no abdominal pain, no BM yet and no rectal bleeding. paraentesis performed with 2 liters of ascitic fuid removed
Objective
Data Reviewed
Laboratory Data:
Laboratory Results
11/15/24 04:15
11/15/24 04:15
Laboratory Results
PT 15.9 Sec (11.4-14.6) H 11/12/24 00:04
INR 1.22 11/12/24 00:04
APTT 34.5 Sec (23.4-35.0) 11/12/24 00:04
Total Bilirubin 1.8 mg/dl (0.2-1.3) H 11/15/24 04:15
AST 118 U/L (17-59) H 11/15/24 04:15
ALT 121 U/L (0-50) H 11/15/24 04:15
Alkaline Phosphatase 120 U/L (38-126) 11/15/24 04:15
Lipase 616 U/L (23-300) H 11/12/24 00:04
Vital Signs and I&O:
Vital Signs
Temp Pulse Resp BP Pulse Ox
98.6 F 60 21 91/56 91
11/15/24 11:25 11/15/24 13:55 11/15/24 13:55 11/15/24 11:01 11/15/24 13:55
I&O
11/14/24 11/15/24 11/16/24
06:59 06:59 06:59
Intake Total 1200 / 1200
Output Total 1200 / 1200 875 / 875 220 / 220
Balance 0 / 0 -875 / -875 -220 / -220
Physical Exam
Physical Exam
GI: Soft, Distended and Non Tender
--- NOTE | 2024-11-15 15:08 | CON.ID ---
Consultation
-
Date/Time Consultation Requested: 11/15/2024 1247
Date/Time Consultation Performed: 11/15/2024 1450
Requesting Provider: Dr. Burt
Performing Provider: Dr. Aviles
Reason for Consultation: Pneumonia
Chief Complaint / Past History
History of Present Illness
Jonh Rodriguez is a 74-year-old man being evaluated at the request of Dr. Burt regarding pneumonia and recovery of Pseudomonas on culture. History is obtained from chart review, along with patient interview.
The patient has underlying history of COPD and reports he was in his usual state of health until around when he developed a sore throat after being around grandchildren. Thereafter, he developed a cough. When it persisted after
several days he saw his GP and was prescribed doxycycline. He noted an initial slight improvement, but then his cough returned. He again saw his GP who ordered an x-ray and a course of amoxicillin and a 6-day course of prednisone. He again noted
a slight improvement in the amount of cough, but then it returned. He then went back to his GP again and was prescribed Mucinex and a course of Azithromycin which he completed on 09/02.
Despite several rounds of antibiotics he had continued cough, with the production of yellow/green sputum. He went to [facility] where he was found to have a left pleural effusion on chest x-ray. He was discharged, but presented to [facility] on 11/12 after the development of several days of rectal bleeding. Since admission, a sputum culture was performed which reveals the presence of Pseudomonas, and Infectious Diseases is asked to comment upon further antibiotic management.
At this time he continues with a cough. He denies any hemoptysis. Sputum continues to be yellow/green. He has been started on vest therapy, but notes an increase in shortness of breath following its use. He has been evaluated by Pulmonology. A
thoracentesis performed on 11/03/2024 revealed a transudative effusion.
Past History
Additional Past Medical History:
DM
HLD
HTN
CAD; Hx NE
PAD
Hx prostate CA
V. tach
CHF with depressed EF
COPD
Additional Past Surgical History:
CABG
ICD placement
bilateral iliac artery stents (2019)
Allergy History:
erythromycin base (Erythromycin Base) Allergy (Verified 03/05/19 08:52)
contraindicated (see comment)
Medications Reviewed: Yes
Current Antibiotics:
Vancomycin (dosing per pharmacy)
Zosyn 3.375 gm IV q.6 hours
Xifaxan
Social History
Tobacco: Former Smoker
Alcohol: Former
Drug: None
Personal:
Living: With Family
Employment: Retired
Review of Systems
Vital Signs
Temp Pulse Resp BP Pulse Ox
98.6 F 60 21 91/56 91
11/15/24 11:25 11/15/24 13:55 11/15/24 13:55 11/15/24 11:01 11/15/24 13:55
Physical Exam
Physical Exam
Constitutional: No Acute Distress, Comfortable, Chronically Ill, Non-toxic and Obese
Head: Normocephalic
Eyes: Pupils Equal, Pupils Round, No Conjunctival Hemorrhage and Sclera Anicteric
Oral: No Thrush and No Ulcers
Cardiovascular: Regular Rate and S1/S2; Negative S3/S4
Pulmonary: Rhonchi (left base), Coarse and Non Labored; Negative Wheezes
Gastrointestinal: Soft, Non Tender, Distended, Normal Bowel Sounds and No Rebound
Extremities: Edema and Venous Insufficiency; Negative Cyanosis or Erythema
Neurological: Awake and Alert
Psychological: Calm
Lab / Diagnostic Study Results
11/15/24 04:15
11/15/24 04:15
Abs Immat Gran (auto) 0.0 10^3/uL (0-0.05) 11/12/24 00:04
Absolute Neuts (auto) 4.3 10^3/uL (1.4-6.5) 11/12/24 00:04
Absolute Lymphs (auto) 0.4 10^3/uL (1.2-3.4) L 11/12/24 00:04
Absolute Monos (auto) 0.9 10^3/uL (0.1-0.6) H 11/12/24 00:04
Absolute Basos (auto) 0.0 10^3/uL (0-0.2) 11/12/24 00:04
Immature Gran % 0.4 % (0-0.5) 11/12/24 00:04
Neutrophils % 74.9 % (42.2-75.2) 11/12/24 00:04
Lymphocytes % 7.2 % (20.5-51.1) L 11/12/24 00:04
Monocytes % 14.9 % (1.7-9.3) H 11/12/24 00:04
Eosinophils % 2.1 % (0-6) 11/12/24 00:04
Basophils % 0.5 % (0-2) 11/12/24 00:04
PT 15.9 Sec (11.4-14.6) H 11/12/24 00:04
INR 1.22 11/12/24 00:04
Ur Squamous Epith Cells None seen /LPF (Few) 11/12/24 04:54
Microbiology Results
Micro:
11/15/24 10:25 Body Fluid Culture - Pending
Peritoneal Fluid Gram Stain - Preliminary
11/14/24 11:36 Respiratory Culture - Preliminary
Sputum Pseudomonas species
Gram Stain - Preliminary
11/12/24 04:54 Urine Culture - Final
Urine No Significant Growth
Imaging:
11/14/2024 CT chest without IV contrast: moderate loculated left pleural effusion noted. Moderate left lower lobe consolidation concerning for pneumonia. Moderate lingular consolidation also concerning for pneumonia. Mild right lower lobe
consolidation likely atelectasis. Small right pleural effusion noted. Cardiomegaly noted. Please see full dictation for additional detail.
Assessment / Plan
Pulmonary infiltrate
Pleural effusion
Sputum culture with Pseudomonas
Recent lower GI bleed
Renal insufficiency
CHF (EF approximate 35%)
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
DM
HLD
HTN
CAD; Hx NE
PAD
Hx prostate CA
V. tach
CHF with depressed EF
COPD
Recommendations:
At present, not entirely clear whether pulmonary infiltrate is true pneumonia or secondary to a combination of factors including pulmonary edema +/- bronchitis.
White count not elevated.
Sputum culture has shown Pseudomonas, although difficult to differentiate colonizer versus true pathogen. Sputum with only moderate WBCs.
Discontinue further vancomycin as no MRSA recovered.
Discontinue further Zosyn and transition to cefepime dosed for underlying renal insufficiency.
Follow-up for clinical improvement.
Continue with vest therapy.
Continue with Acapella device, along with incentive spirometry.
--- NOTE | 2024-11-15 15:24 | PTCARENOTE ---
Pt walked to waiting room and sat for 45 mins, back to room for consult elvin Aviles and IV team
--- NOTE | 2024-11-15 16:39 | PN.CDI ---
CDI
- -
CDI:
Physician Documentation Request
Admit Date: 11/12/24 01:36
Dear Doctor Javed,
Progress notes include 'MARIA DOLORES on CKD-baseline Cr 1.8 '
eGFR results:
Laboratory Tests
11/12/24 11/12/24 11/13/24
00:04 11:29 04:22
eGFR 20.87 22.67 21.74
11/14/24 11/15/24
06:28 04:15
eGFR 24.78 27.28
Please clarify which of the following accurately represents the patient's renal status:
____ - CDK 3 (please clarify A or B)
____ - CKD 4
____ - Other
Stages of Chronic Kidney Disease*
Level Description GFR
G1 Normal or High >90
G2 Mildly decreased 60-89
G3a Mildly to moderately decreased 45-59
G3b Moderately to severely decreased 30-44
G4 Severely decreased 15-29
G5 Kidney failure <15
Use of terms such as suspected, likely, concern for, or probable (associated with a specific diagnosis that is being evaluated, monitored, or treated as if it exists) are acceptable and can be coded in the inpatient setting, when documented at the
time of discharge.
Thank you,
Renea KINGSTONN
CDI Specialist
tiger text
Please use your independent medical judgment in providing your response.
*Source: Kidney Disease: Improving Global Outcomes (KDIGO) 2012
[2024-11-15] MEDS: LASIX 80 MG IV (16:43)
[2024-11-15] MEDS: STERILE WATER FOR INJECTION 10 ML IV (17:23)
[2024-11-15] MEDS: MAXIPIME 1000 MG IV (17:23)
[2024-11-15 17:39] LABS: Glucose - Point of Care 136 mg/dl (70-99)
[2024-11-15 18:44] LABS: Venous Blood Gas B.E. -1.4 mmol/L (-4 to +4); Venous Blood Gas O2 Sat % 100.0 %
[2024-11-15 18:58] LABS: Ammonia 44 umol/L (9-30)
[2024-11-15 19:23] LABS: AFP Male/Tumor Marker < 0.968 ng/ml
[2024-11-15] MEDS: ASPIR LOW (ENTERIC COATED) 81 MG PO (21:05)
[2024-11-15] MEDS: PROTONIX 40 MG PO (21:05)
[2024-11-15] MEDS: CRESTOR 10 MG PO (21:05)
[2024-11-15] MEDS: COREG PO (21:09)
[2024-11-15 22:10] LABS: Glucose - Point of Care 303 mg/dl (70-99)
[2024-11-15] MEDS: NOVOLOG FLEXPEN 4 UNITS SC (22:32)
[2024-11-16] VITALS (12 sets, daily range): BP systolic 89–109; BP diastolic 42–62; PULSE 60–64; BMI 32.2
[2024-11-16 00:47] LABS: Glucose - Point of Care 245 mg/dl (70-99)
--- NOTE | 2024-11-16 02:49 | PTCARENOTE ---
Pt AAOx4. Pt having low sys bp's in othe 80's at times, Night BOBBIN LOOSE END FINDER made aware. Pt orientation remains intact. Pt hs blood glucose 303, BOBBIN LOOSE END FINDER placed order for 4 units and recheck glucose Q2. Pt continues to have cough, prn Robitussin given. pt on 2l nc
spo2 95-96%. Assessment care and vitals as charted.
[2024-11-16] MEDS: MAXIPIME 1000 MG IV ×2 (05:03→17:01)
[2024-11-16] MEDS: STERILE WATER FOR INJECTION 10 ML IV ×2 (05:04→17:01)
[2024-11-16 05:39] LABS: Hematocrit 26.9 % (39.0-52.0); Hemoglobin 8.8 g/dL (13.0-18.0); Mean Corp Hgb Conc. 32.7 g/dL (33.0-37.0); Mean Corpuscular Volume 100.4 fL (80.0-94.0); Platelet Count 77 10^3/uL (130-400); Red Cell Dist. Width 16.6 % (11.5-14.5)
[2024-11-16 06:05] LABS: ALT (SGPT) 125 U/L (0-50); AST (SGOT) 118 U/L (17-59); Albumin 3.1 g/dl (3.5-5.0); Alkaline Phosphatase 132 U/L (38-126); Blood Urea Nitrogen 64 mg/dl (9-20); Calcium 8.1 mg/dl (8.4-10.2); Carbon Dioxide 24 mmol/L (22-30); Chloride 103 mmol/L (98-107); Estimated Creatinine Clearance 31 ml/min; Glucose 105 mg/dl (70-99); Potassium 4.3 mmol/L (3.5-5.1); Sodium 133 mmol/L (135-145); Total Protein 6.1 g/dl (6.3-8.2); eGFR 27.28
--- NOTE | 2024-11-16 07:33 | W.PN.ID1 ---
Date of Service
Date of Service: November 16, 2024
Today's Communication
Continue abx.
Assessment / Plan
Pulmonary infiltrate
Pleural effusion
Sputum culture with Pseudomonas
Recent lower GI bleed
Renal insufficiency
CHF (EF approximate 35%)
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
DM
HLD
HTN
CAD; Hx HI
PAD
Hx prostate CA
V. tach
CHF with depressed EF
COPD
Recommendations:
At present, not entirely clear whether pulmonary infiltrate is true pneumonia or secondary to a combination of factors including pulmonary edema +/- bronchitis.
White count not elevated. No fevers.
Sputum culture has shown Pseudomonas, although difficult to differentiate colonizer versus true pathogen. Sputum with only moderate WBCs.
Continue with cefepime.
Follow for clinical improvement.
Continue with vest therapy.
Continue with Acapella device, along with incentive spirometry.
Monitor white count and temperature curve.
����������������������������������������������������������
Chief Complaint
-: Pneumonia
Subjective / Review of Systems
Patient seen and examined. Reports uneventful night. Notes some improvement in cough. No fevers or chills.
Vital Signs / Physical Exam
Vital Signs
Vital Signs
Temp Pulse Resp BP Pulse Ox
97.8 F 60 19 94/55 95
11/16/24 04:50 11/16/24 06:00 11/16/24 06:00 11/16/24 06:00 11/16/24 04:00
Physical Exam
Constitutional: No Acute Distress, Comfortable, Non-toxic and Obese
Eyes: Sclera Anicteric
Cardiovascular: Regular Rate and S1/S2; Negative S3/S4
Pulmonary: Coarse and Non Labored; Negative Wheezes
Gastrointestinal: Soft, Non Tender, Distended, Normal Bowel Sounds and No Rebound
Extremities: Edema; Negative Cyanosis or Erythema
Skin: Warm and Dry; Negative Rash or Jaundice
Neurological: Awake and Alert
Psychological: Calm
Objective Data
Lab Data
Lab Results
11/16/24 04:56
11/16/24 04:56
PT 15.9 Sec (11.4-14.6) H 11/12/24 00:04
INR 1.22 11/12/24 00:04
APTT 34.5 Sec (23.4-35.0) 11/12/24 00:04
Estimated Creat Clear 31 ml/min 11/16/24 04:56
Total Bilirubin 2.0 mg/dl (0.2-1.3) H 11/16/24 04:56
AST 118 U/L (17-59) H 11/16/24 04:56
ALT 125 U/L (0-50) H 11/16/24 04:56
Alkaline Phosphatase 132 U/L (38-126) H 11/16/24 04:56
Most recent labs reviewed.
Micro Results:
11/14/24 11:36 Respiratory Culture - Preliminary
Sputum Pseudomonas species. (Sensitivities pending)
Gram Stain - Preliminary
11/15/24 15:44 Nasal Screen MRSA (PCR) - Final
Nose MRSA not detected - performed by PCR methodology.
11/15/24 10:25 Body Fluid Culture - Pending
Peritoneal Fluid Gram Stain - Preliminary
11/12/24 04:54 Urine Culture - Final
Urine No Significant Growth
Imaging:
11/14/2024 CT chest without IV contrast: moderate loculated left pleural effusion noted. Moderate left lower lobe consolidation concerning for pneumonia. Moderate lingular consolidation also concerning for pneumonia. Mild right lower lobe
consolidation likely atelectasis. Small right pleural effusion noted. Cardiomegaly noted. Please see full dictation for additional detail.
[2024-11-16] MEDS: DUONEB 3 ML INH ×2 (07:36→11:27)
[2024-11-16] MEDS: PULMICORT 0.5 MG INH (07:36)
[2024-11-16 07:51] LABS: Glucose - Point of Care 127 mg/dl (70-99)
[2024-11-16] MEDS: NOVOLOG FLEXPEN-LOW RESISTANCE SC (09:26)
--- NOTE | 2024-11-16 09:26 | W.PN.PUL3 ---
Today's Communication / Plan
-
Currently stable on RA, no changes in past 24 hours
Spirometry with severe obstruction, severe COPD noted--will adjust nebs to inhalers that should be continued at home
Recommend OP sleep study as well which we reviewed
Abx can be transitioned to PO course for 14 days per ID
Otherwise, can assess for d/c planning
Has appt with our office on 11/22 which he should keep if able
Assessment
-
74-year-old male with a past medical history of hypertension, hyperlipidemia, chronic cough, DM type II, history of prostate cancer, history of VT s/p AICD (02/2008), CAD s/p CABG (1994) + coronary stent, chronic systolic heart failure with
diastolic dysfunction, ICM, chronic amiodarone therapy and PAD s/p bilateral common iliac artery stents who presents with rectal bleeding and weakness for 1 week. Patient reported that he started clots as well. Initially in the ER he was afebrile
with pulse rate 76, respiratory rate 17, BP 90/53, and saturating 96% on room air.. Initial labs pertinent for Hb 8.9, platelet count 98, sodium 130, potassium 5.3, creatinine 3.0, lipase 616, and urinalysis slightly cloudy with moderate bacteria.
Urine culture was collected. CXR showed a moderate left-sided pleural effusion. Of note he recently had a thoracentesis on 11/03/2024 where IR removed 1100 cc of serosanguineous transudative pleural fluid. He was started on a PPI in the ER and
admitted to the IMU for further care.. Cardiology was consulted given his history of CHF. Diuresis was started and GI was also consulted as he has ascites. He does have a security incident response engineer, Dr. Butt, that he was told to follow-up for in the future
for an endoscopy. On 11/13, patient was short of breath and was found to be wheezing. Pulmonary service now consulted for additional management/recommendations.
Impression:
Wheezing, likely due to chronic cough in the setting of acute decompensated heart failure and left-sided pleural effusion
Left-sided pleural effusion s/p thoracentesis on 11/03/2024 revealing transudative effusion
Cirrhosis to suspected to be from chronic hepatic congestion from heart failure
Acute on chronic systolic heart failure with LVEF 35% with inferior and anteroseptal hypokinesis via TTE from 11/12/2024
Mild�moderate TR with pulmonary hypertension (mild � PASP: 33 mmHg via TTE from 11/12/2024; his mPAP was 36 in July 2020 via [facility] at the time)
Rectal bleeding
Acute blood loss anemia due to rectal bleeding
Acute thrombocytopenia
Hyponatremia
MARIA DOLORES (prior creatinine from March 2021 was 1.1)
Transaminitis
Abnormal urinalysis with moderate urine bacteria and slightly cloudy appearance
Pseudomonas + sputum 11/14/24
Severe COPD, severe obstruction on PFT 11/16/24
Chronic conditions JUDICIAL ADMINISTRATIVE ASSISTANT:
Hypertension
Hyperlipidemia
DM type II
History of prostate cancer s/p radiation
History of VT s/p AICD 2007
CAD s/p CABG (1994)
Anemia
Chronic cough
Chronic systolic heart failure with diastolic dysfunction/ICM
Stable 3 mm nodule in left lung base
Chronic amiodarone therapy
PAD s/p bilateral common iliac artery stents 09/29/2018
Former tobacco smoker (1PPD x 15-20 years - quit 1994)
Centrilobular emphysema seen on imaging
Plan:
Currently 93-94% on RA
Still has SOB complaints, not improved with thora or para completed 11/[address] abdomen/pelvis from 11/12/2024 shows tree-in-bud nodular opacities in the right lower lobe with bronchial wall thickening and a medial right lower lobe consolidative opacity
CT Chest obtained today (11/14) --> shows centrilobular emphysema, loculated left-sided pleural effusion in addition to moderate-large amount of ascites, with patchy nodular opacities with tree-in-bud in medial RML with bronchial wall thickening in
proximal RML and posteromedial RLL, as well as right hilar + subcarinal lymphadenopathy; believe majority of left lung consolidation is from compressive atelectasis
Multiple courses of antibiotics since end of July 2024, including doxycycline, amoxicillin, Zithromax and cefuroxime --> cough has persisted despite these ABx
He is afebrile, and his cough is not worsening --> observe off ABx for now
Chronic cough history is noted, never had PFTs
PFT 11/16/24 with severe COPD, this was reviewed/can change nebs to inhalers to continue at home
COPD education
Regarding his cough, continue with mucinex and nebulized albuterol.
He does not wish to continue vest or Sodium nebs, will discontinue
Continue other nebs for now
SOB is likely multifactorial given CHF, possible COPD, obesity, liver disease, MARION suspected
Sputum with pseudomonas but not sure if this a true result/few bacteria noted
ID consult obtained
Can repeat sputum culture if able
Outpatient follow up with repeat CT Chest --> if RML/RLL nodular opacities persist, would consider bronchoscopy with BAL to evaluate further for NTM vs fungal disease, and possibly do EBUS-FNA if lymph nodes remain enlarged
Can complete empiric treatment for 14 days
Agree with speech evaluation
Diet advancement per team
Management of cirrhosis and rectal bleeding to primary team and GI
Follow up AFP
s/p paracentesis 2L removed
Prior ammonia level 97--on lactulose 20 BID
Seems more lethargic today, falling asleep in chair--improved
Will check VBG and recheck ammonia level--adequate
Snoring noted, likely has underlying MARION as well, not yet diagnosed
CPAP could be helpful
Incentive spirometer encouraged q1hr while awake
Replete electrolytes with K>4, Mg>2
PT/OT evals
- Trend H/H and transfuse if needed to keep Hb>7-8g/dL; keep plt>50k and INR<1.8
- Maintain euglycemia with goal BG >100 and <180
- DVT ppx: SCDs given his GI bleed
Discussed with patient and /family at bedside extensively
Pulmonary service will continue to follow along.
Data:
CT abdomen/pelvis without contrast 11/12/2024:
1. Small amount of peritoneal ascites, new compared to prior CT dated 12/01/2023.
2. Nodular contour of the liver, suggestive of hepatic cirrhosis.
3. Liver is hyperattenuating relative to the spleen, which may be seen in the setting of hemachromatosis, Mando's disease, glycogen storage disease, or drug toxicity.
4. Splenomegaly.
5. Left pleural effusion, partially imaged. Right lower lobe consolidation, which may represent atelectasis or pneumonia.
CT Chest - Moderate loculated left pleural effusion. Moderate left lower lobe consolidation concerning for pneumonia. Moderate lingular consolidation concerning for pneumonia. Mild right lower lobe consolidation probably atelectasis. Tiny
right pleural effusion. Cardiomegaly. Moderate abdominopelvic ascites. Probable splenomegaly. Nodular hepatic margin suggesting cirrhosis
ECHO 11/12/24: 1. Severely dilated LV with moderately reduced systolic function.
2. LVEF is approximately 35% by Kearney's method of this. Inferior and anteroseptal hypokinesis.
3. Normal RV size and function.
4. Mild aortic stenosis.
5. Mild to moderate tricuspid regurgitation. Estimated PASP of 33 mmHg.
6. Compared to prior from July 21, 2020, there is new mild aortic stenosis.
Spirometry 11/16/24: FEV1 0.99L 33%, FVC 1.49L 37%, ratio 66. Post FEV1 1.06L 36%; + BD response in FVC (severe obstruction)
Total time spent today was 55 minutes for this encounter. Time includes reviewing laboratory test/imaging results, reviewing pertinent medical records, obtaining and reviewing medical history, performing an appropriate exam, ordering medications,
tests and procedures. Time also includes documentation of this encounter, coordinating patient care and communicating with other healthcare professionals. Total time does not include separately billed tests performed on this date of service.
Subjective Data
-
Date of Service:
Date of Service: November 16, 2024
Chief Complaint: Pulmonary Follow Up
Subjective:
Currently stable on RA
He does not note any changes in his clinical condition in past 24 hours
at bedside
Objective Data
Data Reviewed
Vital Signs / I&O / Oxygen:
Vital Signs
Temp Pulse Resp BP Pulse Ox
98.3 F 74 15 94/55 98
11/16/24 07:33 11/16/24 07:40 11/16/24 07:40 11/16/24 06:00 11/16/24 07:40
Intake and Output
11/15/24 11/16/24 11/17/24
06:59 06:59 06:59
Intake Total 300 / 300
Output Total 875 / 875 770 / 770 250 / 250
Balance -875 / -875 -470 / -470 -250 / -250
SaO2 98
Nasal Cannula flow liters per 2
minute
Physical Exam
General: Respiratory Distress (negative), Comfortable, Chills (negative), Sweats (negative) and Other (obese male in NAD)
HEENT: Normocephalic, Anicteric and Other (thick neck)
Cardiovascular: Peripheral Edema (+2 LE pitting edema bilaterally) and Other (normal rate)
Respiratory: Wheeze (bilaterally upon expiration), Crackles (left>right), Rhonchi (bilateral) and Non-Labored Respirations
GI: Soft, Distended (abdominal distension with fluid in addition to obesity), Non Tender and Normal Bowel Sounds
Neurology: Awake, Alert, Tremors (negative) and Other (slow to respond to questions/flat affect)
Skin: Warm, Dry and Cyanosis (negative)
Labs/Micro/Reports
Lab Data
11/16/24 04:56
11/16/24 04:56
Microbiology
11/14/24 11:36 Sputum Respiratory Culture - Final
Pseudomonas aeruginosa
11/14/24 11:36 Sputum Gram Stain - Final
11/15/24 15:44 Nose Nasal Screen MRSA (PCR) - Final
MRSA not detected - performed by PCR methodology.
11/15/24 10:25 Peritoneal Fluid Gram Stain - Preliminary
11/12/24 04:54 Urine Urine Culture - Final
No Significant Growth
[2024-11-16] MEDS: LASIX 80 MG IV ×2 (09:27→16:43)
[2024-11-16] MEDS: COREG 6.25 MG PO ×2 (09:30→21:14)
[2024-11-16] MEDS: PROTONIX 40 MG PO ×2 (09:30→21:15)
[2024-11-16] MEDS: PACERONE 200 MG PO (09:31)
[2024-11-16] MEDS: MUCINEX 600 MG PO ×2 (09:31→21:15)
[2024-11-16] MEDS: XIFAXAN 550 MG PO ×2 (09:31→21:15)
[2024-11-16] MEDS: DUPHALAC/CHRONULAC 20 GRAMS PO ×2 (09:31→21:15)
--- NOTE | 2024-11-16 09:36 | W.PN.CD ---
Addendum entered and electronically signed by Jah Batista MD 11/16/24 11:05:
I saw and examined the patient.
The PRODUCE SORTER's note was reviewed and I agree with the note.
Patient is comfortable sitting in chair. Feels better after paracentesis but abdomen still remains distended. Lungs rhonchi at bases. Coughing and trying raise sputum.
Continue diuresis with IV Lasix and monitor renal function, weights and BP.. Creatinine improving and down to 2.4. Due to MARIA DOLORES and BP patient is currently off Entresto spironolactone and SGLT 2.
Original Note:
Today's Communication / Plan
-
Continue diuresis as directed by nephrology
Impression / Plan
-
I/P: 74M with ventricular tachycardia (on amiodarone, Medtronic ICD), coronary artery disease status post bypass, HFrEF, hypertension, hypercholesterolemia, PAD, cirrhosis of the liver, type 2 diabetes mellitus, and prior prostate cancer presented
to the emergency department with a chief complaint of BRBPR.
Primary County Health Officer: Dr. Damon ([facility])
HFrEF, acute on chronic, severe requiring hospitalization
Ischemic cardiomyopathy, EF 35%
- Dry weight thought to be approx 100 kg, diuresis directed by nephrology as he presented with MARIA DOLORES -this requires intensive monitoring
- GDMT as tolerated:
-KYLER/ARB/ARNI: Entresto on hold with MARIA DOLORES
-SGLT2 inhibitor: None with MARIA DOLORES
-Aldosterone agonist: Spironolactone on hold with MARIA DOLORES
-Beta hemant: Carvedilol 6.25 mg BID (recently lowered)
-Isosorbide/Hydralazine:�Not started due to low BP
-ICD: Implanted (Medtronic)
- Trend daily weight, I's/O, and BMP with diuresis
- HF education
Pleural effusion, left
- Moderate on CXR in ER, limited target for thoracentesis by ultrasound
- Status post left thoracentesis 11/03/2024 for 1100 mL - transudative by lights
Cirrhosis, with ascites
- Status post paracentesis for 2 L 11/15/2024
- GI following
MARIA DOLORES
- BUN 35, creatinine 1.9 in August
- 3.0 on admission now 2.4
- Seems to be improving with diuresis, diuresis per nephrology
Pseudomonas, on sputum culture, ID following
Thrombocytopenia, chronic
- H/H ~12/31 & Plt 109 while he was in [facility]
- DAPT on hold, after evaluation by GI, cardiology is okay with single agent, ASA resumed today
CAD, s/p CABG
- Stable without chest pain
- Cardiac PET last month consistent with inferior and apical scar. No reversible defects.
- Continue statin, aspirin resumed
Ventricular tachycardia
- None on tele
- Continue amiodarone and carvedilol
- s/p Medtronic ICD
Mild , mild/moderate TR, outpatient follow up
Type 2 diabetes mellitus, per primary service
Cirrhosis of the liver, follows with Dr. Butt
PAD, follows with Dr. Orr, L femoral endarterectomy (2019), chronically occluded superficial femoral arteries bilaterally
Carotid artery stenosis, high-grade, >90% bilaterally, followed by Vascular
MARION
Physical Exam
Vital Signs/Labs
Vital Signs
Temp Pulse Resp BP Pulse Ox
98.3 F 74 15 100/44 98
11/16/24 07:33 11/16/24 07:40 11/16/24 07:40 11/16/24 09:27 11/16/24 07:40
11/15/24 11/16/24 11/17/24
06:59 06:59 06:59
Actual Weight 102.5 kg 101.7 kg
11/16/24 04:56
11/16/24 04:56
PT 15.9 Sec (11.4-14.6) H 11/12/24 00:04
INR 1.22 11/12/24 00:04
APTT 34.5 Sec (23.4-35.0) 11/12/24 00:04
11/12/24
11:29
[id number] Pept 2670
Physical Exam
Constitutional: No acute distress and Comfortable
EENT: Anicteric and Moist mucous membranes
Cardiovascular: Rhythm & rate is regular, S1S2 is normal and Murmur/rub/gallop absent
Respiratory: Respiratory effort normal and Lungs clear to auscul.
GI: Soft, Distention absent, Flat, Non tender and Normal bowel sounds
Neuro/Psych: Alert and Oriented
Other: Skin (warm and dry)
Data Reviewed
-
Date of Service: November 16, 2024
Labs: Labs Reviewed by me
--- NOTE | 2024-11-16 10:02 | W.PN.NEPH.PH ---
Today's Communication / Plan
-
cont lasix
Assessment/Plan
-
Assessment
MARIA DOLORES
hyponatremia
Anemia
PNA
pancytopenia
HFrEF 35% with Moderate TR
SOB
cirrhosis
left pleural effusion
mild ascites
Plan
abx
Holding Entresto, Aldactone
Status post left thoracentesis 11/03/2024
s/p para 2L 11/15
(B/L cr 1.9 dating back 2021) cr remains 2.4
Continue diuresis with Lasix IV 80mg BID
UO 770 + 2L Para
consider restarting Entresto/Aldactone in next 24-48hrs
-
-
Date of Service: November 16, 2024
CC / HPI / ROS
-
Chief Complaint:
History of Present Illness:
Na stable 134
MARIA DOLORES/Cr down
BP stable low
Review of Systems:
no CP/SOB
Labs
-
Labs:
WBC 6.1 10^3/uL (4.8-10.8) 11/16/24 04:56
RBC 2.68 10^6/uL (4.70-6.10) L 11/16/24 04:56
Hgb 8.8 g/dL (13.0-18.0) L 11/16/24 04:56
Hct 26.9 % (39.0-52.0) L 11/16/24 04:56
Plt Count 77 10^3/uL (130-400) L 11/16/24 04:56
Sodium 133 mmol/L (135-145) L 11/16/24 04:56
Potassium 4.3 mmol/L (3.5-5.1) 11/16/24 04:56
Chloride 103 mmol/L (98-107) 11/16/24 04:56
Carbon Dioxide 24 mmol/L (22-30) 11/16/24 04:56
BUN 64 mg/dl (9-20) H 11/16/24 04:56
Creatinine 2.4 mg/dL (0.7-1.3) H 11/16/24 04:56
eGFR 27.28 11/16/24 04:56
Glucose 105 mg/dl (70-99) H 11/16/24 04:56
Calcium 8.1 mg/dl (8.4-10.2) L 11/16/24 04:56
Fbs-D-Vxcebupzhvl Pept 2670 pg/ml 11/12/24 11:29
Albumin 3.1 g/dl (3.5-5.0) L 11/16/24 04:56
Physical Exam
-
Vital Signs:
Vital Signs
Temp Pulse Resp BP Pulse Ox
98.3 F 66 16 97/42 95
11/16/24 07:33 11/16/24 09:43 11/16/24 09:43 11/16/24 09:43 11/16/24 09:57
Cardiovascular:: Regular rate and rhythm
Respiratory:: Bilateral: Coarse
Lung Excursion:: Normal
Abdomen:: Nontender and Soft
Bowel Sounds:: Normal
Extremity Edema:: +2: Bilateral:
--- NOTE | 2024-11-16 10:56 | W.PN.UPDATE ---
Update Note
Progress Note Update
I saw and evaluated the patient. I reviewed the resident�s note and agree with findings and plan as documented in the resident�s note.
Denies SOB. No new complaints.
Gen: NAD, Awake and alert
Eyes: EOMI, PERRLA, no scleral icterus.
Neck: supple.
CV: continues to remain RRR, +S1/S2, no m/r/g.
Resp: dec BS in the bases, L>R
Abd: +BS, soft, NT, Obese abd, mod distention
Skin: No rashes. 2+ B/L LE edema
Neuro: continues to remain CN 2-12 intact, non-focal.
Psych: Normal mood and affect.
11/15/24 10:25 Peritoneal Fluid Body Fluid Culture - Preliminary
No Growth After 18-24 Hours
11/15/24 10:25 Peritoneal Fluid Gram Stain - Preliminary
11/14/24 11:36 Sputum Respiratory Culture - Final
Pseudomonas aeruginosa
11/14/24 11:36 Sputum Gram Stain - Final
11/15/24 15:44 Nose Nasal Screen MRSA (PCR) - Final
MRSA not detected - performed by PCR methodology.
11/12/24 04:54 Urine Urine Culture - Final
No Significant Growth
Echo: EF 35%. Severely dilated LV with moderately reduced systolic function. Mild to moderate tricuspid regurgitation; estimated PASP of [address] A/P 11/12/24:
1. Small amount of peritoneal ascites, new compared to prior CT dated 12/01/2023.
2. Nodular contour of the liver, suggestive of hepatic cirrhosis.
3. Liver is hyperattenuating relative to the spleen, which may be seen in the setting of hemochromatosis, Mando's disease, glycogen storage disease, or drug toxicity.
4. Splenomegaly.
5. Left pleural effusion, partially imaged. Left lower lobe consolidation, which may represent atelectasis or pneumonia.
CXR 11/12/24: Moderate left pleural effusion. Cardiomegaly.
CT chest 11/14/24: Moderate loculated left pleural effusion. Moderate left lower lobe consolidation concerning for pneumonia. Moderate lingular consolidation concerning for pneumonia. Mild right lower lobe consolidation probably atelectasis. Tiny
right pleural effusion. Cardiomegaly. Moderate abdominopelvic ascites. Probable splenomegaly. Nodular hepatic margin suggesting cirrhosis. If the patient has emphysema, patient should be assessed for an annual low dose lung cancer CT program, as
pulmonary emphysema is an independent risk factor for lung cancer.
Acute hypoxemic respiratory failure due to acute on chronic HFrEF and, now, L-sided PNA:
-all imaging above (CXR on admission, CT A/P on admission, echo, CT chest)
-proBNP 2670
-s/p IV Lasix (dosing had been on a daily basis), now on Lasix 80mg IV BID (started 11/15/24AM)
-daily wts, I/Os
-holding Entresto and Aldactone as above
-cont Coreg
-cards following
-Patient afebrile and without leukocytosis. On admission imaging findings regarding the left lower lobe consolidation were felt to be due to atelectasis.
-CT chest above. With findings concerning for left lower lobe pneumonia and sputum Cx with pseudomonas, broad spectrum abx started 11/15/24, now on Cefepime as per ID
-may need repeat thoracentesis
-pulm following
Cirrhosis:
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
-GI following
-cont Lactulose/Rifaximin
-s/p Dx/Tx paracentesis 11/15 for 2L, SAAG > 1.1
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
-baseline Cr 1.8
-likely due to CRS as well as meds including Entresto and Aldactone which are on hold
-renal following
-Cr has overall improved
Acute GIB:
-p/w'd BRBPR (likely LGIB)
-Plavix contributed to GI bleeding and has been on hold since admission
-cont ASA
-Hb stable
Other problems:
Pancytopenia, now leukopenia has resolved
CAD s/p stent and CABG: cont BB/ASA
h/o VT s/p ICD: cont Amio
Pulm HTN
Hyponatremia, mild
Hyperkalemia, resolved
HLD: currently on statin which will be stopped if transaminases worsen
Acute transaminitis, likely due to volume O/L
Thrombocytopenia, trend (currently stable)
h/o prostate CA s/p XRT
PAD: cont ASA
LBBB
Obesity due to excess calories
Pt's updated at bedside.
FULL/SCDs (LGIB and thrombocytopenia), encourage ambulation
--- NOTE | 2024-11-16 11:41 | CM ---
Following up on Patient. RN said that patient had a good night, patient is here for a rectal bleed. Patient is currently in the chair, he will likely have no needs.
PLAN: Home likely No Needs.
[2024-11-16 12:30] LABS: Glucose - Point of Care 196 mg/dl (70-99)
[2024-11-16] MEDS: NOVOLOG FLEXPEN-LOW RESISTANCE 1 UNITS SC ×2 (13:26→16:57)
--- NOTE | 2024-11-16 13:39 | W.PN.HOSP.TC ---
Today's Communication/Plan
-
PFTs showed severe obstruction (COPD). Pulmonology adjusted inhalers, which should be continued at home.
Continue Lasix
Assessment / Plan
Assessment / Plan
Impression
Mr. Jonh Rodriguez is a 74-year-old male with past medical history significant for CAD status post CABG and stenting, peripheral arterial disease status post stenting, on dual antiplatelet therapy, CHF with depressed EF and history of VT status post
ICD on amiodarone, type 2 diabetes, chronic pulmonary hypertension, recent pneumonia with left-sided pleural effusion status post thoracenteses 8 days ago presented to the emergency department with bright red blood per rectum. Has heme positive red
stool in the ED.
Plan
# Pneumonia
# Cough, chronic COPD
� CT chest: Left lower lobe pneumonia
� Sputum culture positive for Pseudomonas. Unclear if sputum culture Pseudomonas is a colonizer versus true pathogen.
ID consult
� Transition to cefepime from Zosyn for renal sufficiency. Discontinue vancomycin as no MRSA recovered.
# Left pleural effusion
thoracentesis on 11-03-25-1100 cc of serosanguineous fluid-transudate. Negative for malignant cells.
- Continue with Lasix
Pulmonology consulted
� PFTs 11/16/2024 demonstrated severe obstruction (COPD). Adjusted inhalers, which should be continued at home
� Transition to p.o. antibiotic course for 14 days.
� Outpatient [facility] testing. Pulmonology appointment scheduled on 11/22/2024
# Ascites and transaminitis
AST ALT in the 100s. Ammonia elevated at 97. Total bili 1.2 to 1.5
recalls elevated LFTs since 2 years ago
- likely secondary to fluid overload/heart failure. Follow-up after Lasix
GI recommendations
- Okay to restart aspirin. Continue holding Plavix
� If loose stool, decrease lactulose 20 g twice daily.
� Pending alpha-fetoprotein
- SAAG greater than 1.1 and total protein less than 2.5, suggesting portal hypertensive etiology for ascites
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
Follow-up with Dr. Butt as per sand bobber for endoscopy outpatient
# GI bleed
Hemoglobin stable at 9. baseline hemoglobin was 10.2 in August. Type and screen-got 1 unit of PRBC
# Acute on chronic HFrEF
# Ischemic cardiomyopathy. Coronary disease with history of stent, CABG in 1994
# Ventricular tachycardia, ventricular fibrillation. S/P-BiV ICD/pacer original placement 2007 with revision generator changed in 2013
8 pound weight gain
Patient stated sysbp usually 88-95
- Hold Entresto and Aldactone
� Coreg 6.25 mg P.o. twice daily
- Amio for Vtach
Cardiology recommendations
� Echo EF 35%
� GDMT: Entresto, SGLT2, spironolactone held due to MARIA DOLORES. Carvedilol 12.5 twice daily. [employer] ICD
� IV Lasix 40 to 80 mg per nephrology
# MARIA DOLORES on CKD
Likely cardiorenal
Creatinine 3 in the ED. Down to 2.4
eGFR 25
Hold Entresto, Metformin and Aldactone
Lasix as needed
Nephrology consulted
� Keep SBP above 90
# Thrombocytopenia
New. Platelet count 80,000
- hold antiplatelet Plavix
# Microscopic hematuria. OP Urology F/U
History of nephrolithiasis
History of prostate cancer with history of radiation
CT-No nephrolithiasis or hydronephrosis on either side. No aggressive renal mass appreciated. The ureters are nondilated.The prostate gland is within normal limits.No significant bladder wall thickening or adjacent fat stranding.
# Hyperlipidemia- Statin
# Pulmonary hypertension
# Peripheral artery disease
# LBBB
# Ex Smoker
DVT prophylaxis-SCDs
Diet: 2 g sodium
Full code
Anticipated Discharge: 24 - 48 hours
Subjective/Interval History
-
Date of Service: November 16, 2024
No acute events overnight. Patient reported passing his first bowel movement this morning that was not mostly blood clots. He says breathing is okay.
Objective Data
-
Labs:
Laboratory Results
11/16/24
04:56
WBC 6.1
Hgb 8.8 L
Hct 26.9 L
Plt Count 77 L
Sodium 133 L
Potassium 4.3
Chloride 103
Carbon Dioxide 24
BUN 64 H
Creatinine 2.4 H
Glucose 105 H
Calcium 8.1 L
Total Bilirubin 2.0 H
AST 118 H
ALT 125 H
Alkaline Phosphatase 132 H
Vital Signs:
Vital Signs
Temp Pulse Resp BP Pulse Ox
98 F 60 19 97/42 96
11/16/24 12:39 11/16/24 12:00 11/16/24 12:00 11/16/24 09:43 11/16/24 10:00
I&O
11/15/24 11/16/24 11/17/24
06:59 06:59 06:59
Intake Total 300 / 300
Output Total 875 / 875 770 / 770 350 / 350
Balance -875 / -875 -470 / -470 -350 / -350
Review of Systems
-
History Source: Patient
Constitutional: Reports No Symptoms
EENT: Reports No Symptoms Reported
Respiratory: Reports Trouble Breathing
Cardiac: Reports No Symptoms
Abdomen/GI: Reports Bloated
Genitourinary: Reports No Symptoms
Musculoskeletal: Reports No Symptoms
Skin: Reports No Symptoms
Neuro: Reports No Symptoms
Physical Exam
-
General: Well Developed, Well Nourished, No Apparent Distress and Comfortable
HEENT: Normocephalic, Atraumatic, Moist Mucous Membranes, Anicteric, Nose Appears Normal and Ears Appear Normal
Respiratory: Wheezes (Right lung stauffer)
Cardiac: S1/S2 and Irregular Rhythm
GI: Nontender, Normal Bowel Sounds and Distended (Abdomen distended again after paracentesis yesterday that removed 2 L)
Musculoskeletal: No Clubbing, No Cyanosis, Edema, Right Lower Extrem (Bilateral lower extremity edema increased from yesterday) and Edema, Left Lower Extrem
Skin: Warm and Dry
Neuro: Awake, Alert, Oriented, Nonfocal/Grossly Intact and Central Nerve's Intact
Psych: Calm
Data Reviewed
-
Total Time Spent with Patient (in minutes): 25
Diagnostic Radiology: Report Reviewed by me
CT Scan: Report Reviewed by me
Ultrasound: Report Reviewed by me
Medical Tests (Nuc Med, Echo etc): Report Reviewed by me
Labs: Labs Reviewed by me
--- NOTE | 2024-11-16 14:29 | RESPNOTE ---
COPD education packet and videos assigned to Pt. Discussed w/ patient and family at bedside.
Per Dr. Ambrose, perform ambulatory pulse ox test tomorrow 11/17
--- NOTE | 2024-11-16 14:39 | W.PN.GI.CBS2 ---
Addendum entered and electronically signed by Riki Vargas MD 11/16/24 16:55:
I saw and examined the patient.
The [employer] or PA's note was reviewed and I agree with the note.
Comment: no acute complaints
ABD soft mildly distended, nontender
REC:
Diuretics managed by Renal/Cards
Paracentesis as needed, can be done outpt prn. Renal function may limit ability to go up on diuretics significantly.
Continue lactulose/xifaxan for HE, but and pt deny confusion. He does have some baseline constipation and it can help with that. Could consider d/c as outpt if stable
F/U with Dr Butt, his food safety technician
No further bleeding. Hgb stable. He would be high risk for procedures
Not much new to add from GI standpoint
Will sign off. Please call back if needed
Original Note:
Today's Communication / Plan
-
as per plan
Assessment / Plan
-
74-year-old male with past medical history CAD status post CABG x 3, PAD left femoral endarterectomy with bilateral iliac artery stents (2019) on aspirin and Plavix, V. tach on Amio status post ICD, CHF with reduced EF, hypertension, diabetes,
hyperlipidemia, prostate cancer status post XRT, pneumonia, left-sided effusion recent diagnosis of anemia with thrombocytopenia that was being worked up as an outpatient by hematology status post iron infusion who presents to the emergency room
with 4-day history of rectal bleeding. Asked to evaluate for the same. The patient states that approximately 4 days ago he started having some bright red blood per rectum on the tissue and in the bowl. This was a small amount. 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
started to get leather tacker and then yesterday he started to have some darker amount of blood but this was more maroon color. He did state that there were some clots in it. He does strain on occasion to have bowel movements. He does have a cough, he
is also had some increased shortness of breath. He had an episode of red blood overnight. None further for nursing this morning. Presentation WBC 5.7, hemoglobin 8.9, platelets 98. Repeat pending. Did have 1 episode of red blood overnight.
None further. Patient was transfused 2 units PRBC this am. Awaiting repeat labs. Discussed with nursing. Rectal exam performed by myself without any external hemorrhoids, no obvious masses, dried blood on the outside of his skin. Scant red blood
on rectal exam. Patient had a virtual colonoscopy 01/2024 that was negative. His last endoscopic colonoscopy was approximately 8 years ago that was 'normal' per patient. Records unavailable to us. He has never had an endoscopy before. He is
followed by Dr. Daquan [facility] for elevated LFTs He had a recent ultrasound records unavailable to us. Although Dr. Pickard wanted him to have an upper endoscopy to rule out varices when he saw him approx 6 weeks ago. He has had increasing lower
extremity edema prompting increase in Lasix by cardiology. CT imaging here confirming cirrhosis. The patient does have a history of prostate cancer status post XRT however with no prior history of rectal bleeding in the past. Recent consult by
Criselda for low Hgb and PLT per . Had iron per . Patient has also been a little 'sleepy' past couple days which thought from back pain. Patient has some asterixis on exam. He is AAO x3.
Impression:
Lower GI bleed/Rectal Bleeding-> scant rectal bleeding on rectal, no obvious mass, hemorrhoid or rectal varices identified. None further.
-> Hx prostate Ca s/p XRT
-> Virtual [place] 01/2024, last endoscopic colonoscopy 8 yrs ago per patient/, (held off secondary to comorbidities and ASA/Plavix)
-> Resumed ASA, Plavix on hold since admission.
Cirrhosis on CT Imaging, followed by Dr. Butt-> r/o MASLD
Ascites-> SAAG >1.1 AND t PROTEIN <2.5 SUGGESTING PORTAL HYPERTENSIVE ETIOLOGY FOR THE ASCITES
No SBP noted.
Asterixis-> resolved with Lactulose and Xifaxan, patient usually constipated. Now having 2 BM daily on BID lactulose.
HFrEF hx VT with ICD
MARIA DOLORES on CKD
Elevated Lipase, likely secondary to increased renal function as patient without any abd pain or signs of pancreatitis.
Left pleural effusion
Plan:
-If recurrent hydrothorax, to f/u with hepatology for further evaluation with TIPS if indicated
-Continue Lactulose and Xifaxan, Patient usually constipated at home.
-Continue Pantoprazole 40 mg BID
-Diuretics per Renal, may need repeat paracentesis. Will defer to renal given MARIA DOLORES on CKD.
-Continues on Abx for treatment of pneumonia causing cough
-Continue 2 g sodium Diet
-Daily weight
-Currently on carvedilol which would be beneficial if there is any esophageal varices
-He will need to follow-up with Dr. Butt, his primary food safety technician for an endoscopy in the future
Subjective
Subjective
Date of Service: November 16, 2024
Patient without any GI complaints. Had a dark BM. Did have some blood clots from dry nose last evening and just now. Continues on Pantoprazole 40 mg BID. Had paracentesis yesterday 2 L removed. Cardiology and Renal are following managing diuresis.
On Lasix 80 mg IV BID at present. Daily weights being followed. On 2 gm Na diet. Patient using incentive spirometer and flutter valve to try to move chest secretions.
Objective
Data Reviewed
Laboratory Data:
Laboratory Results
11/16/24 04:56
11/16/24 04:56
Laboratory Results
PT 15.9 Sec (11.4-14.6) H 11/12/24 00:04
INR 1.22 11/12/24 00:04
APTT 34.5 Sec (23.4-35.0) 11/12/24 00:04
Total Bilirubin 2.0 mg/dl (0.2-1.3) H 11/16/24 04:56
AST 118 U/L (17-59) H 11/16/24 04:56
ALT 125 U/L (0-50) H 11/16/24 04:56
Alkaline Phosphatase 132 U/L (38-126) H 11/16/24 04:56
Lipase 616 U/L (23-300) H 11/12/24 00:04
Vital Signs and I&O:
Vital Signs
Temp Pulse Resp BP Pulse Ox
98 F 60 19 97/42 96
11/16/24 12:39 11/16/24 12:00 11/16/24 12:00 11/16/24 09:43 11/16/24 10:00
I&O
11/15/24 11/16/24 11/17/24
06:59 06:59 06:59
Intake Total 300 / 300
Output Total 875 / 875 770 / 770 350 / 350
Balance -875 / -875 -470 / -470 -350 / -350
Physical Exam
Physical Exam
HEENT: Anicteric
Cardiology: Normal Sinus Rhythm
Pulmonary: Clear (decreased left base)
GI: Soft, Distended, Non Tender and Normal Bowel Sounds
Extremities: Edema
Neuro: Non Focal (AAOx3, no asterixis)
[2024-11-16] MEDS: ROBITUSSIN 200 MG PO ×2 (16:43→21:20)
[2024-11-16 17:01] LABS: Glucose - Point of Care 188 mg/dl (70-99)
[2024-11-16] MEDS: ADVAIR HFA 230/21 MCG INHALER INH (19:26)
[2024-11-16] MEDS: AFRIN NASAL SPRAY 30 SPRAYS NASAL (21:14)
[2024-11-16] MEDS: CRESTOR 10 MG PO (21:15)
[2024-11-16] MEDS: ASPIR LOW (ENTERIC COATED) PO (21:22)
--- NOTE | 2024-11-16 21:37 | W.PN.UPDATE ---
Update Note
Progress Note Update
Patient noted with nose bleeding. Per the patient he getting nose bleeding with O2 frequently in am, usually his nose gets dry and sometimes gets some scabs. He tried to blow his nose and one of the scabs and ended with the nose bleeding. Jonathan
ordered that helped with the nose bleeding and advised the staff to humidifier with O2 administration.
[2024-11-16 21:54] LABS: Glucose - Point of Care 200 mg/dl (70-99)
--- NOTE | 2024-11-16 22:08 | PTCARENOTE ---
Pt ambulated and sat with family in front waiting area for 30+minutes. Upon Pt returning to room Pt blowing nose and now having a nose bleed in right nostril. Compression applied with out success of stopping bleeding. FUEL QUALITY TECH made aware. Jonathan ordered,
place on gauze and placed in nose. Pt nose expelling a large clot. New gauze place. FUEL QUALITY TECH to bed side to assess Pt. Pt respiration even unlabored at this time. Spo2 96% ra.
[2024-11-17] VITALS (26 sets, daily range): BP systolic 84–115; BP diastolic 49–73; BMI 32.4
--- NOTE | 2024-11-17 02:38 | DOWNTIME ---
There was a [employer]ancer Downtime on 11/17/2024 from 0100 to 11/17/2024 at 0215. Downtime documentation of patient's care, including medication administrations, has been reconciled in the electronic record per guidelines. Refer to the
patient's paper chart under the miscellaneous tab to see printed paper medication records and downtime forms.
[2024-11-17 04:55] LABS: Hematocrit 27.7 % (39.0-52.0); Hemoglobin 9.2 g/dL (13.0-18.0); Mean Corp Hgb Conc. 33.2 g/dL (33.0-37.0); Mean Corpuscular Volume 100.7 fL (80.0-94.0); Platelet Count 71 10^3/uL (130-400); Red Cell Dist. Width 16.2 % (11.5-14.5)
[2024-11-17] MEDS: MAXIPIME 1000 MG IV ×2 (05:24→17:22)
[2024-11-17] MEDS: STERILE WATER FOR INJECTION 10 ML IV ×2 (05:24→17:22)
[2024-11-17 05:28] LABS: ALT (SGPT) 142 U/L (0-50); AST (SGOT) 131 U/L (17-59); Albumin 3.1 g/dl (3.5-5.0); Alkaline Phosphatase 152 U/L (38-126); Blood Urea Nitrogen 67 mg/dl (9-20); Calcium 8.3 mg/dl (8.4-10.2); Carbon Dioxide 23 mmol/L (22-30); Chloride 102 mmol/L (98-107); Estimated Creatinine Clearance 30 ml/min; Glucose 122 mg/dl (70-99); Potassium 4.3 mmol/L (3.5-5.1); Sodium 133 mmol/L (135-145); Total Protein 6.4 g/dl (6.3-8.2); eGFR 25.98
[2024-11-17 08:05] LABS: Glucose - Point of Care 136 mg/dl (70-99)
[2024-11-17] MEDS: SPIRIVA RESPIMAT 2.5 MCG 2 PUFF INH (08:20)
[2024-11-17] MEDS: ADVAIR HFA 230/21 MCG INHALER 2 PUFF INH (08:21)
--- NOTE | 2024-11-17 08:30 | W.PN.HOSP.TC ---
Today's Communication/Plan
-
Bowel movement with a large amount of blood clots. Blood pressure 80s and increased to 104 a few minutes later.
After returning to bed, he started feeling 8 out of 10 left lower quadrant pain that radiated to his back.
� Patient pointed to area of superficial inguinal ligament for location of pain. No inguinal mass palpated. � Patient denies having inguinal hernias, except for 1 at .
� Pain radiating to back seems to follow L1/L2 nerve distribution.
Seen by GI, nephrology, and hospitalist team.
� Stat CT abdomen pelvis with p.o. only pending (IV contrast deferred due to creatinine 2.5)
� Transferred to ICU
� AM meds not administered given stat CT
ICU recommendations
� Coags, ammonia, VBG, urine sodium pending
� IV PPI
Assessment / Plan
Assessment / Plan
Impression
Mr. Jonh Rodriguez is a 74-year-old male with past medical history significant for CAD status post CABG and stenting, peripheral arterial disease status post stenting, on dual antiplatelet therapy, CHF with depressed EF and history of VT status post
ICD on amiodarone, type 2 diabetes, chronic pulmonary hypertension, recent pneumonia with left-sided pleural effusion status post thoracenteses 8 days ago presented to the emergency department with bright red blood per rectum. Has heme positive red
stool in the ED.
Plan
# GI bleed
# Left lower quadrant pain
Patient presented with stools of mostly clots, dark red stools
Hemoglobin stable at 9. baseline hemoglobin was 10.2 in August. Type and screen-got 1 unit of PRBC
ICU recommendations
� Coags, ammonia, VBG, urine sodium pending. Follow serial H&H
� Pantoprazole IV 40 mg twice daily
# Thrombocytopenia
Likely causes are renal sufficiency and hepatic insufficiency
New. Platelet count ~80,000. 71,000 on 11/20/2024
- hold antiplatelet Plavix
� Platelet transfusion if platelet count below 50,000 and active bleeding
� Platelet transfusion if platelet count below 10,000
# Pneumonia
# Cough, chronic COPD
� CT chest: Left lower lobe pneumonia
� Sputum culture positive for Pseudomonas. Unclear if sputum culture Pseudomonas is a colonizer versus true pathogen.
ID consult
� Transition to cefepime from Zosyn for renal sufficiency. Discontinue vancomycin as no MRSA recovered.
# Left pleural effusion
thoracentesis on 11-03-25-1100 cc of serosanguineous fluid-transudate. Negative for malignant cells.
- Continue with Lasix
Pulmonology consulted
� PFTs 11/16/2024 demonstrated severe obstruction (COPD). Adjusted inhalers, which should be continued at home
� Transition to p.o. antibiotic course for 14 days.
� Outpatient MARION testing. Pulmonology appointment scheduled on 11/22/2024
# Ascites and transaminitis
AST ALT in the 100s. Ammonia elevated at 97. Total bili 1.2 to 1.5
recalls elevated LFTs since 2 years ago
- likely secondary to fluid overload/heart failure. Follow-up after Lasix
GI recommendations
- Okay to restart aspirin. Continue holding Plavix
� If loose stool, decrease lactulose 20 g twice daily.
� Pending alpha-fetoprotein
- SAAG greater than 1.1 and total protein less than 2.5, suggesting portal hypertensive etiology for ascites
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
Follow-up with Dr. Butt as per assistant accounting manager for endoscopy outpatient
# Acute on chronic HFrEF
# Ischemic cardiomyopathy. Coronary disease with history of stent, CABG in 1994
# Ventricular tachycardia, ventricular fibrillation. S/P-BiV ICD/pacer original placement 2007 with revision generator changed in 2013
8 pound weight gain
Patient stated sysbp usually 88-95
- Hold Entresto and Aldactone
� Coreg 6.25 mg P.o. twice daily
- Amio for Vtach
Cardiology recommendations
� Echo EF 35%
� GDMT: Entresto, SGLT2, spironolactone held due to MARIA DOLORES. Carvedilol 12.5 twice daily. Medtronic ICD
� IV Lasix 40 to 80 mg per nephrology
# MARIA DOLORES on CKD
Likely cardiorenal
Creatinine 3 in the ED. Down to 2.4
eGFR 25
Hold Entresto, Metformin and Aldactone
Lasix as needed
Nephrology consulted
� Keep SBP above 90
# Microscopic hematuria. OP Urology F/U
History of nephrolithiasis
History of prostate cancer with history of radiation
CT-No nephrolithiasis or hydronephrosis on either side. No aggressive renal mass appreciated. The ureters are nondilated.The prostate gland is within normal limits.No significant bladder wall thickening or adjacent fat stranding.
# Hyperlipidemia- Statin
# Pulmonary hypertension
# Peripheral artery disease
# LBBB
# Ex Smoker
DVT prophylaxis-SCDs
Diet: 2 g sodium
Full code
Anticipated Discharge: > 48 hours
Subjective/Interval History
-
Date of Service: November 17, 2024
Bowel movement with a large amount of blood clots. Blood pressure 104 and increased to 110s a few minutes later.
After returning to bed, he started feeling 8 out of 10 left lower quadrant pain that radiated to his back.
� Patient pointed to area of superficial inguinal ligament for location of pain. No inguinal mass palpated. � Patient denies having inguinal hernias, except for 1 at .
� Pain radiating to back seems to follow L1/L2 nerve distribution.
Seen by GI, nephrology, and hospitalist team.
� Stat CT abdomen pelvis with p.o. only pending (IV contrast deferred due to creatinine 2.5)
� Transferred to ICU
� AM meds not administered given stat CT
Objective Data
-
Labs:
Laboratory Results
11/17/24
04:32
WBC 5.9
Hgb 9.2 L
Hct 27.7 L
Plt Count 71 L
Sodium 133 L
Potassium 4.3
Chloride 102
Carbon Dioxide 23
BUN 67 H
Creatinine 2.5 H
Glucose 122 H
Calcium 8.3 L
Total Bilirubin 2.2 H
AST 131 H
ALT 142 H
Alkaline Phosphatase 152 H
Vital Signs:
Vital Signs
Temp Pulse Resp BP Pulse Ox
97.7 F 61 18 106/58 96
11/17/24 03:00 11/17/24 08:22 11/17/24 08:22 11/17/24 06:02 11/16/24 22:05
I&O
11/16/24 11/17/24 11/18/24
06:59 06:59 06:59
Intake Total 300 / 300 150 / 150
Output Total 770 / 770 1200 / 1200 120 / 120
Balance -470 / -470 -1050 / -1050 -120 / -120
Review of Systems
-
Unable to obtain full review of systems at this time due to: Acuity
History Source: Patient and Family
Abdomen/GI: Reports Abdominal Pain (Left lower quadrant radiating to left back in the area just superior to inguinal ligament), Bloody Stools and Other (No inguinal hernia)
Physical Exam
-
General: Well Developed, Well Nourished, Pain and Conversant
HEENT: Normocephalic, Atraumatic, Moist Mucous Membranes, Nose Appears Normal and Ears Appear Normal
Respiratory: Wheezes
Cardiac: Regular Rhythm and S1/S2
GI: Soft, Normal Bowel Sounds, Tender (Pain in lower left quadrant in the area superficial to inguinal ligament, radiates to left back), Distended and No Hernias
Musculoskeletal: No Clubbing, No Cyanosis, Edema, Right Lower Extrem and Edema, Left Lower Extrem
Skin: Warm
Neuro: Awake, Alert, Oriented, Nonfocal/Grossly Intact and Central Nerve's Intact
Hematologic / Lymphatic: Other (Small/short, slight strip of ecchymosis along left inguinal ligament)
Psych: Anxious
Data Reviewed
-
Total Time Spent with Patient (in minutes): 35
Diagnostic Radiology: Report Reviewed by me
Ultrasound: Report Reviewed by me
Medical Tests (Nuc Med, Echo etc): Report Reviewed by me
Labs: Labs Reviewed by me
--- NOTE | 2024-11-17 08:37 | PTCARENOTE ---
Called into pt bathroom - moderate amt of large blood clots and humberto blood spatters on floor and in toilet. Pale, asymptomatic BP 108/62. Cleaned up and escorted back to bed. Color improved. Dr Vargas, Dr. Burt and Dr. Ambrose aware.
--- NOTE | 2024-11-17 09:12 | W.PN.ID1 ---
Date of Service
Date of Service: November 17, 2024
Today's Communication
Continue cefepime for today.
Assessment / Plan
Pulmonary infiltrate
Pleural effusion
Sputum culture with Pseudomonas aeruginosa
Recent lower GI bleed
Renal insufficiency
CHF (EF approximate 35%)
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
Ascites; s/p recent paracentesis for 2L
DM
HLD
HTN
CAD; Hx MA
PAD
Hx prostate CA
V. tach
CHF with depressed EF
COPD
Recommendations:
At present, not entirely clear whether pulmonary infiltrate is true pneumonia or secondary to a combination of factors including pulmonary edema +/- bronchitis.
White count not elevated. No fevers.
Sputum culture has shown Pseudomonas, although difficult to differentiate colonizer versus true pathogen. Sputum with only moderate WBCs.
Continue with cefepime (d#3)
Follow for possible clinical improvement.
Continue with Acapella device, along with incentive spirometry.
Monitor white count and temperature curve.
����������������������������������������������������������
Chief Complaint
-: Pneumonia
Subjective / Review of Systems
Patient seen and examined. Reports feeling somewhat improved today. Still with cough and some sputum. Also has noted some loose stool, although not humberto diarrhea. Denies fevers or chills. Denies shortness of breath.
Vital Signs / Physical Exam
Vital Signs
Vital Signs
Temp Pulse Resp BP Pulse Ox
97.6 F 61 18 108/50 96
11/17/24 07:00 11/17/24 08:22 11/17/24 08:22 11/17/24 08:09 11/16/24 22:05
Physical Exam
Constitutional: No Acute Distress, Comfortable, Non-toxic and Obese
Eyes: Sclera Anicteric
Cardiovascular: Regular Rate and S1/S2; Negative S3/S4
Pulmonary: Coarse and Non Labored; Negative Wheezes
Gastrointestinal: Soft, Non Tender, Distended, Normal Bowel Sounds and No Rebound
Extremities: Edema; Negative Cyanosis or Erythema
Skin: Warm and Dry; Negative Rash or Jaundice
Neurological: Awake and Alert
Psychological: Calm
Objective Data
Lab Data
Lab Results
11/17/24 04:32
11/17/24 04:32
PT 15.9 Sec (11.4-14.6) H 11/12/24 00:04
INR 1.22 11/12/24 00:04
APTT 34.5 Sec (23.4-35.0) 11/12/24 00:04
Estimated Creat Clear 30 ml/min 11/17/24 04:32
Total Bilirubin 2.2 mg/dl (0.2-1.3) H 11/17/24 04:32
AST 131 U/L (17-59) H 11/17/24 04:32
ALT 142 U/L (0-50) H 11/17/24 04:32
Alkaline Phosphatase 152 U/L (38-126) H 11/17/24 04:32
Most recent labs reviewed.
Micro Results:
11/15/24 10:25 Body Fluid Culture - Preliminary
Peritoneal Fluid No Growth After 18-24 Hours
Gram Stain - Preliminary
11/14/24 11:36 Respiratory Culture - Final
Sputum Pseudomonas aeruginosa
Gram Stain - Final
11/15/24 15:44 Nasal Screen MRSA (PCR) - Final
Nose MRSA not detected - performed by PCR methodology.
11/12/24 04:54 Urine Culture - Final
Urine No Significant Growth
Imaging:
11/14/2024 CT chest without IV contrast: moderate loculated left pleural effusion noted. Moderate left lower lobe consolidation concerning for pneumonia. Moderate lingular consolidation also concerning for pneumonia. Mild right lower lobe
consolidation likely atelectasis. Small right pleural effusion noted. Cardiomegaly noted. Please see full dictation for additional detail.
11/12/2024 ECHO (TTE): Severely dilated LV with moderately reduced systolic function. LVEF approximately 35%. Mild aortic stenosis. Mild to moderate tricuspid regurgitation.
--- NOTE | 2024-11-17 09:22 | W.PN.NEPH.PH ---
Today's Communication / Plan
-
midodrine
Assessment/Plan
-
Assessment
MARIA DOLORES (B/L cr 1.9 dating back 2021)
hyponatremia
Anemia
PNA
pancytopenia
HFrEF 35% with Moderate TR
SOB
cirrhosis
left pleural effusion
mild ascites
Plan
abx continues
Holding Entresto, Aldactone
Status post left thoracentesis 11/03/2024
s/p para 2L 11/15
Continue diuresis with Lasix IV 80mg BID
follow hgb
GI eval for BRBPR
may need CT
-
-
Date of Service: November 17, 2024
CC / HPI / ROS
-
Chief Complaint:
MARIA DOLORES
History of Present Illness:
Na stable 133
MARIA DOLORES/Cr unchanged 2.5
BP stable low
diuresing well with IV lasix
Review of Systems:
no CP/SOB
LLQ to low back pain
BRBPR
Labs
-
Labs:
WBC 5.9 10^3/uL (4.8-10.8) 11/17/24 04:32
RBC 2.75 10^6/uL (4.70-6.10) L 11/17/24 04:32
Hgb 9.2 g/dL (13.0-18.0) L 11/17/24 04:32
Hct 27.7 % (39.0-52.0) L 11/17/24 04:32
Plt Count 71 10^3/uL (130-400) L 11/17/24 04:32
Sodium 133 mmol/L (135-145) L 11/17/24 04:32
Potassium 4.3 mmol/L (3.5-5.1) 11/17/24 04:32
Chloride 102 mmol/L (98-107) 11/17/24 04:32
Carbon Dioxide 23 mmol/L (22-30) 11/17/24 04:32
BUN 67 mg/dl (9-20) H 11/17/24 04:32
Creatinine 2.5 mg/dL (0.7-1.3) H 11/17/24 04:32
eGFR 25.98 11/17/24 04:32
Glucose 122 mg/dl (70-99) H 11/17/24 04:32
Calcium 8.3 mg/dl (8.4-10.2) L 11/17/24 04:32
Hik-I-Peogbwlibnu Pept 2670 pg/ml 11/12/24 11:29
Albumin 3.1 g/dl (3.5-5.0) L 11/17/24 04:32
Physical Exam
-
Vital Signs:
Vital Signs
Temp Pulse Resp BP Pulse Ox
97.6 F 61 18 108/50 96
11/17/24 07:00 11/17/24 08:22 11/17/24 08:22 11/17/24 08:09 11/16/24 22:05
Cardiovascular:: Regular rate and rhythm
Respiratory:: Bilateral: Coarse
Lung Excursion:: Normal
Abdomen:: Soft and Tender (LLQ)
Bowel Sounds:: Normal
Extremity Edema:: +2: Bilateral:
--- NOTE | 2024-11-17 09:29 | W.PN.GI.CBS2 ---
Today's Communication / Plan
-
Would recommend CTA but his Cr is 2.5, high risk for significant kidney injury
Start with CT with PO contrast
If more concern for severe bleed or ischemic bowel, would reconsider IV contrast then
May need to proceed with colonoscopy next, if otherwise stable for procedure from cardiopulmonary standpoint
Hold ASA for now. Discussed with Cardiology
Trend Hgb
Assessment / Plan
-
74-year-old male with past medical history CAD status post CABG x 3, PAD left femoral endarterectomy with bilateral iliac artery stents (2019) on aspirin and Plavix, V. tach on Amio status post ICD, CHF with reduced EF, hypertension, diabetes,
hyperlipidemia, prostate cancer status post XRT, pneumonia, left-sided effusion recent diagnosis of anemia with thrombocytopenia that was being worked up as an outpatient by hematology status post iron infusion who presents to the emergency room
with 4-day history of rectal bleeding. Asked to evaluate for the same. The patient states that approximately 4 days ago he started having some bright red blood per rectum on the tissue and in the bowl. This was a small amount. 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
started to get sand wheeler and then yesterday he started to have some darker amount of blood but this was more maroon color. He did state that there were some clots in it. He does strain on occasion to have bowel movements. He does have a cough, he
is also had some increased shortness of breath. He had an episode of red blood overnight. None further for nursing this morning. Presentation WBC 5.7, hemoglobin 8.9, platelets 98. Repeat pending. Did have 1 episode of red blood overnight.
None further. Patient was transfused 2 units PRBC this am. Awaiting repeat labs. Discussed with nursing. Rectal exam performed by myself without any external hemorrhoids, no obvious masses, dried blood on the outside of his skin. Scant red blood
on rectal exam. Patient had a virtual colonoscopy 01/2024 that was negative. His last endoscopic colonoscopy was approximately 8 years ago that was 'normal' per patient. Records unavailable to us. He has never had an endoscopy before. He is
followed by Dr. Daquan [facility] for elevated LFTs He had a recent ultrasound records unavailable to us. Although Dr. Pickard wanted him to have an upper endoscopy to rule out varices when he saw him approx 6 weeks ago. He has had increasing lower
extremity edema prompting increase in Lasix by cardiology. CT imaging here confirming cirrhosis. The patient does have a history of prostate cancer status post XRT however with no prior history of rectal bleeding in the past. Recent consult by
Ianhtmendoza for low Hgb and PLT per . Had iron per . Patient has also been a little 'sleepy' past couple days which thought from back pain. Patient has some asterixis on exam. He is AAO x3.
Impression:
Rectal bleeding
LLQ pain
Lower GI bleed/Rectal Bleeding-> scant rectal bleeding on rectal, no obvious mass, hemorrhoid or rectal varices identified. None further.
-> Hx prostate Ca s/p XRT
-> Virtual [place] 01/2024, last endoscopic colonoscopy 8 yrs ago per patient/, (held off secondary to comorbidities and ASA/Plavix)
-> Resumed ASA, Plavix on hold since admission.
Cirrhosis on CT Imaging, followed by Dr. Butt-> r/o MASLD
Ascites-> SAAG >1.1 AND t PROTEIN <2.5 SUGGESTING PORTAL HYPERTENSIVE ETIOLOGY FOR THE ASCITES
No SBP noted.
Asterixis-> resolved with Lactulose and Xifaxan, patient usually constipated. Now having 2 BM daily on BID lactulose.
HFrEF hx VT with ICD
MARIA DOLORES on CKD
Elevated Lipase, likely secondary to increased renal function as patient without any abd pain or signs of pancreatitis.
Left pleural effusion
Subjective
Subjective
Date of Service: November 17, 2024
Called back to see pt for hypotension and large rectal bleeding this am. Also c/o LLQ pain
Objective
Data Reviewed
Laboratory Data:
Laboratory Results
11/17/24 04:32
11/17/24 04:32
Laboratory Results
PT 15.9 Sec (11.4-14.6) H 11/12/24 00:04
INR 1.22 11/12/24 00:04
APTT 34.5 Sec (23.4-35.0) 11/12/24 00:04
Total Bilirubin 2.2 mg/dl (0.2-1.3) H 11/17/24 04:32
AST 131 U/L (17-59) H 11/17/24 04:32
ALT 142 U/L (0-50) H 11/17/24 04:32
Alkaline Phosphatase 152 U/L (38-126) H 11/17/24 04:32
Lipase 616 U/L (23-300) H 11/12/24 00:04
Vital Signs and I&O:
Vital Signs
Temp Pulse Resp BP Pulse Ox
97.6 F 61 18 108/50 96
11/17/24 07:00 11/17/24 08:22 11/17/24 08:22 11/17/24 08:09 11/16/24 22:05
I&O
11/16/24 11/17/24 11/18/24
06:59 06:59 06:59
Intake Total 300 / 300 150 / 150
Output Total 770 / 770 1200 / 1200 120 / 120
Balance -470 / -470 -1050 / -1050 -120 / -120
Physical Exam
Physical Exam
GI: Soft, Non Distended and Tender (LLQ mild/moderate)
--- NOTE | 2024-11-17 09:44 | W.PN.UPDATE ---
Update Note
Progress Note Update
I saw and evaluated the patient. I reviewed the resident�s note and agree with findings and plan as documented in the resident�s note.
Denies SOB. No new complaints.
Gen: NAD, Awake and alert
Eyes: EOMI, PERRLA, no scleral icterus.
Neck: supple.
CV:RRR, +S1/S2, no m/r/g.
Resp: B/L ronchi
Abd: +BS, soft, mild LLQ TTP, obese abd, mod distention
Skin: No rashes. 2+ B/L LE edema
Neuro: continues to remain CN 2-12 intact, non-focal.
Psych: Normal mood and affect.
11/15/24 10:25 Peritoneal Fluid Body Fluid Culture - Preliminary
No Growth After 18-24 Hours
11/15/24 10:25 Peritoneal Fluid Gram Stain - Preliminary
11/14/24 11:36 Sputum Respiratory Culture - Final
Pseudomonas aeruginosa
11/14/24 11:36 Sputum Gram Stain - Final
11/15/24 15:44 Nose Nasal Screen MRSA (PCR) - Final
MRSA not detected - performed by PCR methodology.
11/12/24 04:54 Urine Urine Culture - Final
No Significant Growth
Echo: EF 35%. Severely dilated LV with moderately reduced systolic function. Mild to moderate tricuspid regurgitation; estimated PASP of [address] A/P 11/12/24:
1. Small amount of peritoneal ascites, new compared to prior CT dated 12/01/2023.
2. Nodular contour of the liver, suggestive of hepatic cirrhosis.
3. Liver is hyperattenuating relative to the spleen, which may be seen in the setting of hemochromatosis, Mando's disease, glycogen storage disease, or drug toxicity.
4. Splenomegaly.
5. Left pleural effusion, partially imaged. Left lower lobe consolidation, which may represent atelectasis or pneumonia.
CXR 11/12/24: Moderate left pleural effusion. Cardiomegaly.
CT chest 11/14/24: Moderate loculated left pleural effusion. Moderate left lower lobe consolidation concerning for pneumonia. Moderate lingular consolidation concerning for pneumonia. Mild right lower lobe consolidation probably atelectasis. Tiny
right pleural effusion. Cardiomegaly. Moderate abdominopelvic ascites. Probable splenomegaly. Nodular hepatic margin suggesting cirrhosis. If the patient has emphysema, patient should be assessed for an annual low dose lung cancer CT program, as
pulmonary emphysema is an independent risk factor for lung cancer.
Acute GIB:
-p/w'd BRBPR (likely LGIB)
-Plavix contributed to GI bleeding and has been on hold since admission
-11/17/24AM pt with BRBPR, LLQ abd pain, and hypotension. Case discussed with Cr. Vargas, STAT CT A/P with PO contrast only to start (MARIA DOLORES/CKD).
-hold ASA
-Hb stable, trend Q6H
Acute hypoxemic respiratory failure due to acute on chronic HFrEF and, now, L-sided PNA:
-all imaging above (CXR on admission, CT A/P on admission, echo, CT chest)
-proBNP 2670
-s/p IV Lasix (dosing had been on a daily basis), now on Lasix 80mg IV BID (started 11/15/24AM)
-daily wts, I/Os
-holding Entresto and Aldactone as above
-cont Coreg
-cards following
-Patient afebrile and without leukocytosis. On admission imaging findings regarding the left lower lobe consolidation were felt to be due to atelectasis.
-CT chest above. With findings concerning for left lower lobe pneumonia and sputum Cx with pseudomonas, broad spectrum abx started 11/15/24, now on Cefepime as per ID
-no need for repeat thoracentesis as per pulm (not enough fluid to tap)
Cirrhosis:
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
-GI following
-cont Lactulose/Rifaximin
-s/p Dx/Tx paracentesis 11/15 for 2L, SAAG > 1.1
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
-baseline Cr 1.8
-likely due to CRS as well as meds including Entresto and Aldactone which are on hold
-renal following
-Cr has overall improved, susepct new baseline 2.5
Other problems:
Pancytopenia, now leukopenia has resolved
CAD s/p stent and CABG: cont BB/ASA
h/o VT s/p ICD: cont Amio
Pulm HTN
Hyponatremia, mild
Hyperkalemia, resolved
HLD: currently on statin which will be stopped if transaminases worsen
Acute transaminitis, likely due to volume O/L
Thrombocytopenia, trend (currently stable)
h/o prostate CA s/p XRT
PAD: cont ASA
LBBB
Obesity due to excess calories
Pt's updated at bedside.
FULL/SCDs (LGIB and thrombocytopenia), encourage ambulation
Transfer to ICU
Total critical care time spent = 34 min (managing acute, life threatening GIB)
[2024-11-17] MEDS: OMNIPAQUE 50 ML PO (09:52)
--- NOTE | 2024-11-17 09:52 | W.PN.CD ---
Today's Communication / Plan
-
new rectal bleeding: hold ASA
Impression / Plan
-
I/P: 74M with ventricular tachycardia (on amiodarone, Medtronic ICD), coronary artery disease status post bypass, HFrEF, hypertension, hypercholesterolemia, PAD, cirrhosis of the liver, type 2 diabetes mellitus, and prior prostate cancer presented
to the emergency department with a chief complaint of BRBPR.
Primary [employer] Manager: Dr. Damon ([facility])
HFrEF, acute on chronic, severe requiring hospitalization
Ischemic cardiomyopathy, EF 35%
- Dry weight thought to be approx 100 kg, diuresis directed by nephrology as he presented with MARIA DOLORES -this requires intensive monitoring
- GDMT as tolerated:
-KYLER/ARB/ARNI: Entresto on hold with MARIA DOLORES
-SGLT2 inhibitor: None with MARIA DOLORES
-Aldosterone agonist: Spironolactone on hold with MARIA DOLORES
-Beta hemant: Carvedilol 6.25 mg BID (recently lowered)
-Isosorbide/Hydralazine:�Not started due to low BP
-ICD: Implanted (Medtronic)
-continue lasix 80mg IV bid with nephrology managing as well
Rectal bleeding acute
-per GI, will start with CT scan
-hold ASA 81mg
Pleural effusion, left
- Moderate on CXR in ER, limited target for thoracentesis by ultrasound
- Status post left thoracentesis 11/03/2024 for 1100 mL - transudative by lights
Cirrhosis, with ascites
- Status post paracentesis for 2 L 11/15/2024
- GI following
MARIA DOLORES
- BUN 35, creatinine 1.9 in August
- 3.0 on admission now 2.4-2.5
- Seems to be improving with diuresis
Pseudomonas, on sputum culture, ID following
Thrombocytopenia, chronic
- H/H ~12/31 & Plt 109 while he was in [facility]
- DAPT on hold, after evaluation by GI, cardiology is okay with single agent once stable (ASA 81mg daily): currently on hold with active rectal bleeding
CAD, s/p CABG
- Stable without chest pain
- Cardiac PET last month consistent with inferior and apical scar. No reversible defects.
- Continue statin; aspirin held
Ventricular tachycardia
- None on tele
- Continue amiodarone and carvedilol
- s/p Medtronic ICD
Mild , mild/moderate TR, outpatient follow up
Type 2 diabetes mellitus, per primary service
Cirrhosis of the liver, follows with Dr. Butt
PAD, follows with Dr. Orr L femoral endarterectomy (2019), chronically occluded superficial femoral arteries bilaterally
Carotid artery stenosis, high-grade, >90% bilaterally, followed by Vascular
MARION
Physical Exam
Vital Signs/Labs
Vital Signs
Temp Pulse Resp BP Pulse Ox
97.6 F 63 21 109/73 95
11/17/24 07:00 11/17/24 09:34 11/17/24 09:34 11/17/24 09:34 11/17/24 08:30
11/16/24 11/17/24 11/18/24
06:59 06:59 06:59
Actual Weight 101.7 kg 102.4 kg
11/17/24 04:32
PT 15.9 Sec (11.4-14.6) H 11/12/24 00:04
INR 1.22 11/12/24 00:04
APTT 34.5 Sec (23.4-35.0) 11/12/24 00:04
11/12/24
11:29
Qus-[id number] Pept 2670
Physical Exam
EENT: Moist mucous membranes
Cardiovascular: Rhythm & rate is regular, Pedal edema present, JVD present and Systolic murmur present
Respiratory: Respiratory effort normal and Lungs clear to auscul.
Neuro/Psych: AO x 3
Data Reviewed
-
Date of Service: November 17, 2024
EKG: Other (Tele: AV paced 60)
Labs: Labs Reviewed by me
[2024-11-17] MEDS: LASIX 80 MG IV ×2 (09:54→16:12)
--- NOTE | 2024-11-17 09:59 | PTCARENOTE ---
Back in bed BP 84/50s- slowing improved up to 109/73. Now c/o constant undescribable pain LLQ radiates around to back- Notified providers via tt- came to eval. IV Lasix to be given w/ midodrine- holding other meds for now - start PO contrast for
stat CTA- transfer to ICU.
--- NOTE | 2024-11-17 09:59 | CM ---
Following up om Patient.
Patient had a GI bleed this morning after BM so now going over to the ICU today.
PLAN: Home PT/ No Needs vs. SNF
[2024-11-17] MEDS: NOVOLOG FLEXPEN-LOW RESISTANCE SC ×3 (10:26→17:21)
--- NOTE | 2024-11-17 10:54 | PTCARENOTE ---
Report to Cynthiaa, transferred to ICU
--- NOTE | 2024-11-17 11:00 | TRANSFER ---
Report rec'd from BOB Rodas in IMU, pt transferred into ICU room 9781. Plan discussed with operations dispatcher Dr. Juárez, orders rec'd and carried out. Labs and urine specimen obtained and sent, pt and family updated on plan of care. Safe environment
continues.
--- NOTE | 2024-11-17 11:23 | CON.INTV ---
Medical History
-
History of Present Illness:
74yoM with extensive PMH vascular surgery, heart surgery, CKD, pneumonia, CHF, NIDDM, pulm HTN, CAD, prostate cx s/p RT presenting with BRBPR.
Pt initially presented last week with BRBPR that mostly subsided since admission. Pt admits to some dark colored stools and minimal red blood with BM but no humberto red blood and clots that prompted presentation. Pt was constipated and reports
improved BM with lactulose over last few days. Today, however, he had a prasad of BRBPR with hypotension of systolic down to the 80s. He reports passing large clots, dark, and red blood. Pt denies abdominal pain in the room but nurse endorses 10/10 LLQ
pain that radiates to his back noted earlier.
Pt reports having a virtual colonoscopy a year ago but never having an endoscopy. He sees a food management aide but the EGD was deferred in the setting of his pneumonia at that time. Tx for prostate cancer [address] Copeland at [facility]. Family reports
his blood counts have been low since RT, followed with Dr. Salomon with no tx.
Past Medical History
Past Medical History: Arrhythmias, CAD, Cancer (radiation therapy), CHF, HTN, NIDDM and Other (cirrhosis)
Past Surgical History: Cardiac (cardiac and vascular)
Allergies / Home Medications
Allergies
Allergy/AdvReac Type Severity Reaction Status Date / Time
erythromycin base Allergy contraindicated Verified 03/05/19 08:52
(Erythromycin Base) (see
comment)
Home Medications
�Medication �Instructions �Recorded �Confirmed �Last Taken �Type
ascorbic acid (vitamin C) 500 mg 500 mg PO DAILY Supplement 09/25/18 11/12/24 08/06/20 23:30 History
tablet (Vitamin C)
carvedilol 12.5 mg tablet 12.5 mg PO BID Blood pressure 09/25/18 11/12/24 08/07/20 07:00 History
spironolactone 25 mg tablet 25 mg PO DAILY Fluid 09/25/18 11/12/24 08/06/20 08:00 History
retention/Swelling
clopidogrel 75 mg tablet 75 mg PO DAILY ##30 09/30/18 11/12/24 08/07/20 07:00 Rx
metformin 500 mg tablet,extended 500 mg PO BID Diabetes 07/21/20 11/12/24 08/06/20 19:30 History
release 24 hr
aspirin 81 mg tablet,delayed 81 mg PO HS Blood clot 08/07/20 11/12/24 08/06/20 23:30 Rx
release prevention/tx ##0
folic acid 400 mcg tablet 0.4 mg PO HS Supplement ##0 08/07/20 11/12/24 08/06/20 23:30 Rx
multivitamin with folic acid 400 1 tab PO HS Supplement ##0 08/07/20 11/12/24 08/06/20 23:30 Rx
mcg tablet (Tab-A-Petar)
albuterol sulfate 1.25 mg/3 mL 1.25 mg inhalation DAILY 11/03/24 11/12/24 Unknown History
solution for nebulization Lung/Breathing Issues
amiodarone 200 mg tablet (Pacerone) 200 mg PO DAILY Arrhythmia 11/03/24 11/12/24 Unknown History
ferrous sulfate 325 mg (65 mg 325 mg PO DAILY Supplement 11/03/24 11/12/24 Unknown History
iron) capsule,extended release
furosemide 20 mg tablet 40 mg PO DAILY Fluid 11/03/24 11/12/24 Unknown History
Retention/Swelling
rosuvastatin 20 mg tablet 10 mg PO HS High cholesterol 11/03/24 11/12/24 Unknown History
sacubitril 24 mg-valsartan 26 mg 1 tab PO BID Heart Failure 11/03/24 11/12/24 Unknown History
tablet (Entresto)
Review of Systems
Vitals / Labs / Diagnostic Testing
Vital Signs
Temp Pulse Resp BP Pulse Ox
97.6 F 60 21 107/54 91
11/17/24 07:00 11/17/24 11:00 11/17/24 11:00 11/17/24 11:00 11/17/24 11:02
Lab Data
11/17/24 04:32
Microbiology
11/15/24 10:25 Peritoneal Fluid Body Fluid Culture - Preliminary
No Growth After 48 Hours
11/15/24 10:25 Peritoneal Fluid Gram Stain - Preliminary
11/14/24 11:36 Sputum Respiratory Culture - Final
Pseudomonas aeruginosa
11/14/24 11:36 Sputum Gram Stain - Final
11/15/24 15:44 Nose Nasal Screen MRSA (PCR) - Final
MRSA not detected - performed by PCR methodology.
Diagnostic Testing:
Physical Exam
-
HEENT: Normocephalic, Anicteric and Moist Mucous Membranes
Cardiovascular: Peripheral Edema
Respiratory: Rhonchi and Non-Labored Respirations
GI: Distended and Non Tender
Neurology: AO x 3 (slow to answer questions) and No Motor Deficits
Skin: Warm and Dry
General: Comfortable
Assessment
-
74yoM with extensive PMH vascular surgery, heart surgery, CKD, pneumonia, CHF, NIDDM, pulm HTN, CAD, prostate cx s/p RT presenting with BRBPR.
Presenting symptoms to ED was BRBPR with self resolution off home plavix and minimal blood since admission until today with gush of more blood and accompanied hypotension. Pt has LLQ pain with no tenderness to palpation, pitting edema. No hx of
colonoscopy or EGD. Getting CT right now. Differential includes mesenteric ischemia with pain out of proportion to exam and bright red blood since being off blood thinners, late RT toxicity compounded with cirrhosis and blood thinners, hemorrhoids,
diverticulosis/litis on abx, AVM.
#BRBPR
#Hypotension
- CT with PO contrast
- Recheck coag studies, VBG, and lactacte
- Hold home HTN and antiplatelet medication
- Transition to IV PPI
- Serial H and H. Transfuse Hg<7 Plts <50
#MARIA DOLORES
- Monitor Cr.
- replete electrolytes as needed
- Third spacing with peripheral edema, pleural effusions, and ascites
#Cirrhosis
- Continue lactulose and rifaxmin
- Recent paracentesis, not indicative of SBO
- Check ammonia level
- LFTs stable
[2024-11-17 11:27] LABS: Glucose - Point of Care 121 mg/dl (70-99)
--- NOTE | 2024-11-17 11:45 | W.PN.INTV ---
Addendum entered and electronically signed by Jeffrey Juárez MD 11/17/24 13:28:
Patient re-evaluated, reports more shortness of breath
Bilateral wheezing on exam, air entry R>L. COPD exacerbation along with left sided pleural effusion. CXR stat.
Start Duoneb qid scheduled along with Budesonide BID. Hold inhalers. Solumedrol 40 mg IV daily.
Additional critical care time spent 35 mins.
Original Note:
Today's Communication / Plan
Recommendations
Plan reviewed with attending
Check Coags, Ammonia, VBG, urine Na
Transition PPI to IV in setting of BRBPR
Pending CT
Assessment
-
74yoM with extensive PMH vascular surgery, heart surgery, CKD, pneumonia, CHF, NIDDM, pulm HTN, CAD, prostate cx s/p RT presenting with BRBPR.
Presenting symptoms to ED was BRBPR with self resolution off home plavix and minimal blood since admission until today with gush of more blood and accompanied hypotension. Pt has LLQ pain with no tenderness to palpation, pitting edema. No hx of
colonoscopy or EGD. Getting CT right now. Differential includes mesenteric ischemia with pain out of proportion to exam and bright red blood since being off blood thinners, late RT toxicity compounded with cirrhosis and blood thinners, hemorrhoids,
diverticulosis/litis on abx, AVM.
#BRBPR
#Hypotension
- CT with PO contrast
- Recheck coag studies, VBG, and lactacte
- Hold home HTN and antiplatelet medication
- Transition to IV PPI
- Serial H and H. Transfuse Hg<7 Plts <50
#MARIA DOLORES
- Monitor Cr.
- replete electrolytes as needed
- Third spacing with peripheral edema, pleural effusions, and ascites
#Cirrhosis
- Continue lactulose and rifaxmin
- Recent paracentesis, not indicative of SBO
- Check ammonia level
- LFTs stable
#COPD
- Currently stable on RA, no changes in past 24 hours
- Spirometry with severe obstruction, severe COPD noted--will adjust nebs to inhalers that should be continued at home
- Recommend OP sleep study as well which we reviewed
- Abx can be transitioned to PO course for 14 days per ID
Subjective Dataa
Subjective Data
Date of Service:
Date of Service: November 17, 2024
Subjective:
74yoM with extensive PMH vascular surgery, heart surgery, CKD, pneumonia, CHF, NIDDM, pulm HTN, CAD, prostate cx s/p RT presenting with BRBPR.
Pt initially presented last week with BRBPR that mostly subsided since admission. Pt admits to some dark colored stools and minimal red blood with BM but no humberto red blood and clots that prompted presentation. Pt was constipated and reports
improved BM with lactulose over last few days. Today, however, he had a prasad of BRBPR with hypotension of systolic down to the 80s. He reports passing large clots, dark, and red blood. Pt denies abdominal pain in the room but nurse endorses 8/10 LLQ
pain that radiates to his back noted earlier.
Pt reports having a virtual colonoscopy a year ago but never having an endoscopy. He sees a baling press operator but the EGD was deferred in the setting of his pneumonia at that time. Tx for prostate cancer [address] Copeland at [facility]. Family reports
his blood counts have been low since RT, followed with Dr. Salomon with no tx.
Objective Data
Data Reviewed
Vital Signs / I&O / Oxygen:
Vital Signs
Temp Pulse Resp BP Pulse Ox
97.5 F 60 21 107/54 91
11/17/24 11:00 11/17/24 11:00 11/17/24 11:00 11/17/24 11:00 11/17/24 11:02
Intake and Output
11/16/24 11/17/24 11/18/24
06:59 06:59 06:59
Intake Total 300 / 300 150 / 150 960 / 960
Output Total 770 / 770 1200 / 1200 370 / 370
Balance -470 / -470 -1050 / -1050 590 / 590
SaO2 91
Nasal Cannula flow liters per 2
minute
Labs/Micro/Reports
Lab Data
11/17/24 04:32
Microbiology
11/15/24 10:25 Peritoneal Fluid Body Fluid Culture - Preliminary
No Growth After 48 Hours
11/15/24 10:25 Peritoneal Fluid Gram Stain - Preliminary
11/14/24 11:36 Sputum Respiratory Culture - Final
Pseudomonas aeruginosa
11/14/24 11:36 Sputum Gram Stain - Final
11/15/24 15:44 Nose Nasal Screen MRSA (PCR) - Final
MRSA not detected - performed by PCR methodology.
[2024-11-17 12:46] LABS: Hemoglobin 8.9 g/dL (13.0-18.0)
[2024-11-17 12:48] LABS: Venous Blood Gas B.E. -1.0 mmol/L (-4 to +4); Venous Blood Gas O2 Sat % 99.9 %
[2024-11-17 12:57] LABS: INR 1.41; PT 17.7 Sec (11.4-14.6)
[2024-11-17 12:58] LABS: APTT 34.5 Sec (23.4-35.0)
[2024-11-17 13:12] LABS: Ammonia 33 umol/L (9-30)
--- NOTE | 2024-11-17 13:13 | PTCARENOTE ---
Pt transported to CT Scan with PCT, now returned to room. Pt c/o dyspnea and orthopnea.. Dr. Juárez at bedside, US of chest performed. CXR ordered as well.
[2024-11-17] MEDS: DUONEB 3 ML INH ×3 (13:29→20:08)
[2024-11-17] MEDS: SOLU-MEDROL PF 40 MG IV (13:57)
[2024-11-17] MEDS: PACERONE PO (13:58)
[2024-11-17] MEDS: DUPHALAC/CHRONULAC PO (13:58)
[2024-11-17] MEDS: COREG PO (13:58)
[2024-11-17] MEDS: MUCINEX PO (13:58)
[2024-11-17] MEDS: XIFAXAN PO (13:59)
--- NOTE | 2024-11-17 13:59 | PTCARENOTE ---
Am medications not given due to active GI bleeding as per prior RN, see MAR> pt now NPO except medications per substance abuse prevention coordinator.
[2024-11-17] MEDS: PROTONIX PO (14:00)
[2024-11-17] MEDS: TYLENOL 650 MG PO (16:39)
--- NOTE | 2024-11-17 16:54 | PTCARENOTE ---
Pt's family at bedside, son asking if patient can get out of bed. Education provided re: active GIB and patient safety. Pt is in bed resting, HOB elevated for comfort due to orthopnea. PRN Tylenol was provided for ongoing abdominal discomfort.
[2024-11-17 17:06] LABS: Glucose - Point of Care 131 mg/dl (70-99)
--- NOTE | 2024-11-17 18:43 | PTCARENOTE ---
Pt turned and repositioned, no complaints at this time. Repeat labs drawn and sent. Dozing when undisturbed. Family left for dinner. Call ralph in hand.
[2024-11-17 18:57] LABS: Hemoglobin 9.0 g/dL (13.0-18.0)
[2024-11-17] MEDS: PULMICORT 0.5 MG INH (20:08)
[2024-11-17] MEDS: NSS (PRESERVATIVE FREE) 10 ML IV (20:51)
[2024-11-17] MEDS: PROTONIX IV 40 MG IV (20:52)
[2024-11-17] MEDS: CRESTOR 10 MG PO (20:53)
[2024-11-17] MEDS: DUPHALAC/CHRONULAC 20 GRAMS PO (20:53)
[2024-11-17] MEDS: XIFAXAN 550 MG PO (20:53)
[2024-11-17] MEDS: MUCINEX 600 MG PO (20:53)
[2024-11-17 23:18] LABS: Glucose - Point of Care 157 mg/dl (70-99)
[2024-11-18] VITALS (40 sets, daily range): BP systolic 76–120; BP diastolic 39–99; PULSE 60; O2SAT 96; BMI 32.1
--- NOTE | 2024-11-18 00:22 | PTCARENOTE ---
no changes in assessment noted. intermittently asks to be placed on bedpan to attempt BM but only passing gas at this time. remains on 2L, AV paced on monitor, not requiring pressor support for BP, abdomen distended, NPO. using urinal. sacral foam
applied. call ralph in reach.
[2024-11-18] MEDS: NOVOLOG FLEXPEN-LOW RESISTANCE 1 UNITS SC ×3 (00:27→18:27)
[2024-11-18 02:55] LABS: Hematocrit 25.1 % (39.0-52.0); Hemoglobin 8.6 g/dL (13.0-18.0); Mean Corp Hgb Conc. 34.3 g/dL (33.0-37.0); Mean Corpuscular Volume 100.0 fL (80.0-94.0); Platelet Count 67 10^3/uL (130-400); Red Cell Dist. Width 16.1 % (11.5-14.5)
[2024-11-18 03:10] LABS: ALT (SGPT) 175 U/L (0-50); AST (SGOT) 206 U/L (17-59); Albumin 2.8 g/dl (3.5-5.0); Alkaline Phosphatase 98 U/L (38-126); Blood Urea Nitrogen 67 mg/dl (9-20); Calcium 8.2 mg/dl (8.4-10.2); Carbon Dioxide 23 mmol/L (22-30); Chloride 104 mmol/L (98-107); Estimated Creatinine Clearance 34 ml/min; Glucose 132 mg/dl (70-99); Potassium 4.7 mmol/L (3.5-5.1); Sodium 133 mmol/L (135-145); Total Protein 5.9 g/dl (6.3-8.2); eGFR 30.28
--- NOTE | 2024-11-18 04:56 | PTCARENOTE ---
AM labs sent. no changes in assessment noted. call ralph in reach.
[2024-11-18] MEDS: MAXIPIME 1000 MG IV ×3 (06:16→21:17)
[2024-11-18] MEDS: STERILE WATER FOR INJECTION 10 ML IV ×3 (06:16→21:18)
[2024-11-18] MEDS: NOVOLOG FLEXPEN-LOW RESISTANCE SC (06:17)
[2024-11-18 06:28] LABS: Glucose - Point of Care 144 mg/dl (70-99)
[2024-11-18] MEDS: DUONEB 3 ML INH ×4 (07:18→19:41)
[2024-11-18] MEDS: PULMICORT 0.5 MG INH ×2 (07:18→19:41)
--- NOTE | 2024-11-18 07:43 | W.PN.INTV ---
Today's Communication / Plan
Recommendations
Plan reviewed with attending
Thoracentesis today
GI flexible sigmoidoscopy tomorrow
Continue diuresis
Continue breathing treatments and steroids
Continue IV PPI, lactulose, rifazimin
Assessment
-
74yoM with extensive PMH vascular surgery, heart surgery, CKD, pneumonia, CHF, NIDDM, pulm HTN, CAD, prostate cx s/p RT presenting with BRBPR.
2 episodes of hematochezia self resolved with stable Hgb. Pt was found to have COPD exacerbation put on duonebs and steroids.
#Hematochezia
#Hypotension
Presenting symptoms to ED was BRBPR with self resolution off home plavix and minimal blood since admission until today with gush of more blood and accompanied hypotension. Pt has LLQ pain with no tenderness to palpation, pitting edema. No hx of
colonoscopy or EGD. Differential includes mesenteric ischemia with pain out of proportion to exam and bright red blood since being off blood thinners, late RT toxicity compounded with cirrhosis and blood thinners, hemorrhoids, diverticulosis/litis
on abx, AVM.
- CT with PO contrast demonstrated no differences or overt causes of bleed. Ischemia less likely.
- Coags, VBG, and lactate WNL. Hgb stable
- Hold home HTN and antiplatelet medication. Levo as needed to maintain MAP>65
- Transition to IV PPI.
- Continue IV Abx
- Serial H and H. Transfuse Hg<7 Plts <50
- Will need EGD and colonoscopy eventually. Plan for flex sig tomorrow per GI
#MARIA DOLORES with possible CKD
- Monitor Cr.
- Replete electrolytes as needed. Mild hyponatremia
- Third spacing with peripheral edema, pleural effusions, and ascites
- Nephrology following
- Improved Cr with diuresis, more indicative of cardiorenal syndrome> hepatorenal
- Urine Na 36, appropriately reduced in setting of hyponatremia
- BID lasix
#Decompensated Cirrhosis
- Continue lactulose and rifaximin. Improved asterixis and hepatic encephalopathy since admission. Monitor for AMS
- Recent paracentesis, not indicative of SBP, transudative fluid.
- Pleural effusion- plan thoracentesis before flex sig for concern respiratory compromise with conscious sedation. Pt has orthopnea at baseline.
- Ammonia reduced, 33
- LFTs increased
- GI following
- Coags stable. Mild thrombocytopenia worsening.
#COPD
#Pneumonia
- Currently on 2L NC, no changes in past 24 hours. Mild wheezing/rhonchi on exam while breathing treatment was on
- Spirometry with severe obstruction, severe COPD noted--Spiriva, Advair and PRN albuterol with PO solumedrol 5 days added
- Abx can be transitioned to PO course for 14 days per ID. Pseudomonas on sputum culture
#Left sided pleural effusion
- Transudative on fluid analysis. Suspect related to underlying cirrhosis
- Thoracentesis to imrpove orthopnea and optimize for GI procedure tomorrow. Evaluate for empyema
#Acute on chronic heart failure with reduced ejection fraction, LVEF 35%
- Cardiology following
- IV diuresis. No peripheral edema
#Mild pulmonary HTN
- Suspect group 2 with underlying history of congestive heart failure in pulmonary artery pressure 36 in 07/2020
Subjective Dataa
Subjective Data
Date of Service:
Date of Service: November 18, 2024
Subjective:
Pt reports feeling well this morning w/o pain. He describes abdominal gas and discomfort. No BM or blood per rectum since yesterday. Denies lightheadedness, SOB, chest pain.
Objective Data
Data Reviewed
Vital Signs / I&O / Oxygen:
Vital Signs
Temp Pulse Resp BP Pulse Ox
98.4 F 67 23 100/48 99
11/18/24 03:27 11/18/24 07:22 11/18/24 07:22 11/18/24 06:00 11/18/24 07:22
Intake and Output
11/17/24 11/18/24 11/19/24
06:59 06:59 06:59
Intake Total 150 / 150 960 / 960
Output Total 1200 / 1200 2120 / 2120
Balance -1050 / -1050 -1160 / -1160
SaO2 99
Nasal Cannula flow liters per 2
minute
Physical Exam
General: Comfortable
HEENT: Normocephalic and Anicteric
Respiratory: Clear, Wheeze, Rhonchi and Non-Labored Respirations (breahting treatment on while examiing)
GI: Soft, Distended (fluid wave) and Non Tender
Neurology: AO x 3 and No Motor Deficits
Skin: Warm and Dry
Labs/Micro/Reports
Lab Data
11/18/24 02:40
Laboratory Results
11/17/24
12:34
PT 17.7 H
INR 1.41
APTT 34.5
Microbiology
11/15/24 10:25 Peritoneal Fluid Body Fluid Culture - Preliminary
No Growth After 48 Hours
11/15/24 10:25 Peritoneal Fluid Gram Stain - Preliminary
11/14/24 11:36 Sputum Respiratory Culture - Final
Pseudomonas aeruginosa
11/14/24 11:36 Sputum Gram Stain - Final
11/15/24 15:44 Nose Nasal Screen MRSA (PCR) - Final
MRSA not detected - performed by PCR methodology.
[2024-11-18] MEDS: DUPHALAC/CHRONULAC 20 GRAMS PO ×2 (08:03→21:16)
[2024-11-18] MEDS: PACERONE 200 MG PO (08:04)
[2024-11-18] MEDS: NSS (PRESERVATIVE FREE) 10 ML IV ×2 (08:04→21:17)
[2024-11-18] MEDS: MUCINEX 600 MG PO ×2 (08:04→21:17)
[2024-11-18] MEDS: XIFAXAN 550 MG PO ×2 (08:04→21:17)
[2024-11-18] MEDS: PROTONIX IV 40 MG IV ×2 (08:05→21:17)
[2024-11-18] MEDS: SOLU-MEDROL PF 40 MG IV (08:05)
[2024-11-18] MEDS: LASIX 80 MG IV ×2 (08:05→17:10)
--- NOTE | 2024-11-18 08:24 | W.PN.UPDATE ---
Update Note
Progress Note Update
I saw and evaluated the patient. I reviewed the resident�s note and agree with findings and plan as documented in the resident�s note.
No new complaints. Denies CP/SOB.
Gen: NAD, Awake and alert
Eyes: EOMI, PERRLA, no scleral icterus.
Neck: supple.
CV: remains RRR, +S1/S2, no m/r/g.
Resp: dec BS in the bases, otherwise CTAB
Abd: +BS, soft, NT to light palpation, obese abd, mod distention
Skin: No rashes. very trace LE edema
Neuro: CN 2-12 intact, non-focal.
Psych: Normal mood and affect.
11/15/24 10:25 Peritoneal Fluid Body Fluid Culture - Preliminary
No Growth After 48 Hours
11/15/24 10:25 Peritoneal Fluid Gram Stain - Preliminary
11/14/24 11:36 Sputum Respiratory Culture - Final
Pseudomonas aeruginosa
11/14/24 11:36 Sputum Gram Stain - Final
11/15/24 15:44 Nose Nasal Screen MRSA (PCR) - Final
MRSA not detected - performed by PCR methodology.
11/12/24 04:54 Urine Urine Culture - Final
No Significant Growth
Echo: EF 35%. Severely dilated LV with moderately reduced systolic function. Mild to moderate tricuspid regurgitation; estimated PASP of [address] A/P 11/12/24:
1. Small amount of peritoneal ascites, new compared to prior CT dated 12/01/2023.
2. Nodular contour of the liver, suggestive of hepatic cirrhosis.
3. Liver is hyperattenuating relative to the spleen, which may be seen in the setting of hemochromatosis, Mando's disease, glycogen storage disease, or drug toxicity.
4. Splenomegaly.
5. Left pleural effusion, partially imaged. Left lower lobe consolidation, which may represent atelectasis or pneumonia.
CXR 11/12/24: Moderate left pleural effusion. Cardiomegaly.
CT chest 11/14/24: Moderate loculated left pleural effusion. Moderate left lower lobe consolidation concerning for pneumonia. Moderate lingular consolidation concerning for pneumonia. Mild right lower lobe consolidation probably atelectasis. Tiny
right pleural effusion. Cardiomegaly. Moderate abdominopelvic ascites. Probable splenomegaly. Nodular hepatic margin suggesting cirrhosis. If the patient has emphysema, patient should be assessed for an annual low dose lung cancer CT program, as
pulmonary emphysema is an independent risk factor for lung cancer.
CT A/P (PO contrast): Stable findings in the abdomen and pelvis. Small right and moderate left pleural effusions with associated probable left lower lobe pneumonia, slightly progressed.
CXR: Stable moderate left pleural effusion with associated atelectases and/or pneumonia.
Acute GIB:
-p/w'd BRBPR (likely LGIB)
-Plavix contributed to GI bleeding and has been on hold since admission
-11/17/24AM pt with BRBPR, LLQ abd pain, and transient hypotension. CT A/P with PO contrast only (MARIA DOLORES/CKD) unremarkable as above.
-holding ASA
-Hb stable
-likely flex sig tomorrow as per discussion with GI
Acute hypoxemic respiratory failure due to acute on chronic HFrEF and, now, L-sided PNA:
-all imaging above (CXR on admission, CT A/P on admission, echo, CT chest)
-proBNP 2670
-s/p IV Lasix (dosing had been on a daily basis), now on Lasix 80mg IV BID (started 11/15/24AM)
-daily wts, I/Os
-holding Entresto and Aldactone as above
-Coreg stopped due to hypotension
-cards following
-Patient afebrile and without leukocytosis. On admission imaging findings regarding the left lower lobe consolidation were felt to be due to atelectasis.
-CT chest above. With findings concerning for left lower lobe pneumonia and sputum Cx with pseudomonas, broad spectrum abx started 11/15/24, now on Cefepime as per ID
-likely attempt L-thoracentesis today
Cirrhosis:
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
-GI following
-cont Lactulose/Rifaximin
-s/p Dx/Tx paracentesis 11/15 for 2L, SAAG > 1.1
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
-PLATE MILL MILL HAND baseline Cr was 1.8
-likely due to CRS as well as meds including Entresto and Aldactone which are on hold
-renal following
-Cr has overall improved, now 2.5
Other problems:
Pancytopenia, now leukopenia has resolved
CAD s/p stent and CABG: cont BB/ASA
h/o VT s/p ICD: cont Amio
Pulm HTN
Hyponatremia, mild
Hyperkalemia, resolved
HLD: currently on statin which will be stopped if transaminases worsen
Acute transaminitis, likely due to volume O/L
Thrombocytopenia, trend (currently stable)
h/o prostate CA s/p XRT
PAD: cont ASA
LBBB
Obesity due to excess calories
Pt's updated at bedside.
FULL/SCDs (LGIB and thrombocytopenia), encourage ambulation
--- NOTE | 2024-11-18 08:28 | W.PN.HOSP.TC ---
Today's Communication/Plan
-
CT abdomen pelvis with oral contrast 11/18/2024 yesterday did not find an etiology for left lower quadrant radiating to the back. Stable findings. Small right and moderate left pleural effusions with probable left lower lobe pneumonia, slightly
progressed.
CXR 11/18/2024: Moderate left pleural effusion with associated atelectasis or pneumonia
Hemoglobin stable at 8.6
Creatinine downtrending to 2.2
Possible thoracentesis today
Gastroenterology recommendations
� Flexible sigmoidoscopy tomorrow
Cardiology recommendations
� Resume aspirin 81 mg daily if no further bleeding. Since patient provide follow-up in this morning, we are continuing to hold aspirin
Assessment / Plan
Assessment / Plan
Impression
Mr. Jonh Rodriguez is a 74-year-old male with past medical history significant for CAD status post CABG and stenting, peripheral arterial disease status post stenting, on dual antiplatelet therapy, CHF with depressed EF and history of VT status post
ICD on amiodarone, type 2 diabetes, chronic pulmonary hypertension, recent pneumonia with left-sided pleural effusion status post thoracenteses 8 days ago presented to the emergency department with bright red blood per rectum. Has heme positive red
stool in the ED.
Plan
# GI bleed
# Left lower quadrant pain
Patient presented with stools of mostly clots, dark red stools
Hemoglobin stable at 9. baseline hemoglobin was 10.2 in August. Type and screen-got 1 unit of PRBC
ICU recommendations
� Coags, ammonia, VBG, urine sodium pending. Follow serial H&H
� Pantoprazole IV 40 mg twice daily
# Thrombocytopenia
Likely causes are renal sufficiency and hepatic insufficiency
New. Platelet count ~80,000. 71,000 on 11/20/2024
- hold antiplatelet Plavix
� Platelet transfusion if platelet count below 50,000 and active bleeding
� Platelet transfusion if platelet count below 10,000
# Pneumonia
# Cough, chronic COPD
� CT chest: Left lower lobe pneumonia
� Sputum culture positive for Pseudomonas. Unclear if sputum culture Pseudomonas is a colonizer versus true pathogen.
ID consult
� Transition to cefepime from Zosyn for renal sufficiency. Discontinue vancomycin as no MRSA recovered.
# Left pleural effusion
thoracentesis on 11-03-25-1100 cc of serosanguineous fluid-transudate. Negative for malignant cells.
- Continue with Lasix
Pulmonology consulted
� PFTs 11/16/2024 demonstrated severe obstruction (COPD). Adjusted inhalers, which should be continued at home
� Transition to p.o. antibiotic course for 14 days.
� Outpatient MARION testing. Pulmonology appointment scheduled on 11/22/2024
# Ascites and transaminitis
AST ALT in the 100s. Ammonia elevated at 97. Total bili 1.2 to 1.5
recalls elevated LFTs since 2 years ago
- likely secondary to fluid overload/heart failure. Follow-up after Lasix
GI recommendations
- Okay to restart aspirin. Continue holding Plavix
� If loose stool, decrease lactulose 20 g twice daily.
� Pending alpha-fetoprotein
- SAAG greater than 1.1 and total protein less than 2.5, suggesting portal hypertensive etiology for ascites
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
Follow-up with Dr. Butt as per weatherization director for endoscopy outpatient
# Acute on chronic HFrEF
# Ischemic cardiomyopathy. Coronary disease with history of stent, CABG in 1994
# Ventricular tachycardia, ventricular fibrillation. S/P-BiV ICD/pacer original placement 2007 with revision generator changed in 2013
8 pound weight gain
Patient stated sysbp usually 88-95
- Hold Entresto and Aldactone
� Coreg 6.25 mg P.o. twice daily
- Amio for Vtach
Cardiology recommendations
� Echo EF 35%
� GDMT: Entresto, SGLT2, spironolactone held due to MARIA DOLORES. Carvedilol 12.5 twice daily. Medtronic ICD
� Resume aspirin 81 mg daily if no further bleeding. Since patient provide follow-up in this morning, we are continuing to hold aspirin
# MARIA DOLORES on CKD
Likely cardiorenal
Creatinine 3 in the ED. Down to 2.4. eGFR 25
Hold Entresto, Metformin and Aldactone
Lasix 80 mg twice daily IV
Nephrology consulted
# Microscopic hematuria. OP Urology F/U
History of nephrolithiasis
History of prostate cancer with history of radiation
CT-No nephrolithiasis or hydronephrosis on either side. No aggressive renal mass appreciated. The ureters are nondilated.The prostate gland is within normal limits.No significant bladder wall thickening or adjacent fat stranding.
# Hyperlipidemia- Statin
# Pulmonary hypertension
# Peripheral artery disease
# LBBB
# Ex Smoker
DVT prophylaxis-SCDs
Diet: 2 g sodium
Full code
Anticipated Discharge: > 48 hours
Subjective/Interval History
-
Date of Service: November 18, 2024
No acute events overnight. Patient had another bowel movement today, which she reported was mostly solid but still had a burgundy component. He states his breathing is same as usual.
Objective Data
-
Labs:
Laboratory Results
11/18/24 11/18/24 11/18/24
02:40 02:40 13:00
WBC 5.6
Hgb Cancelled 8.6 L Pending
Hct 25.1 L
Plt Count 67 L
Sodium 133 L
Potassium 4.7
Chloride 104
Carbon Dioxide 23
BUN 67 H
Creatinine 2.2 H
Glucose 132 H
Calcium 8.2 L
Total Bilirubin 2.5 H
AST 206 H
ALT 175 H
Alkaline Phosphatase 98
Vital Signs:
Vital Signs
Temp Pulse Resp BP Pulse Ox
98.2 F 67 23 100/48 99
11/18/24 08:00 11/18/24 07:22 11/18/24 07:22 11/18/24 06:00 11/18/24 07:22
I&O
11/17/24 11/18/24 11/19/24
06:59 06:59 06:59
Intake Total 150 / 150 960 / 960
Output Total 1200 / 1200 2120 / 2120
Balance -1050 / -1050 -1160 / -1160
Review of Systems
-
History Source: Patient
EENT: Reports No Symptoms Reported
Respiratory: Reports No Symptoms
Cardiac: Reports No Symptoms
Abdomen/GI: Reports Bloody Stools
Genitourinary: Reports No Symptoms
Musculoskeletal: Reports Joint Pain (Back pain)
Physical Exam
-
General: Well Developed, Well Nourished, No Apparent Distress and Comfortable
HEENT: Normocephalic, Atraumatic, Anicteric, Nose Appears Normal and Ears Appear Normal
Respiratory: Wheezes and Rales
Cardiac: Regular Rhythm and S1/S2
GI: Soft, Nontender, Normal Bowel Sounds and Distended
Musculoskeletal: No Clubbing, No Cyanosis and Edema, Right Lower Extrem
Skin: Warm and Dry
Neuro: Awake, Alert and Oriented
Psych: Calm
--- NOTE | 2024-11-18 08:53 | W.PN.GI.CBS2 ---
Today's Communication / Plan
-
I discussed flex sig with pt to at least evaluate the distal colon given his rectal bleeding. Full colonoscopy may be too high risk with his pulmonary status, particularly if this is a distal bleed
Disucssed with Pulmonary. He is getting thoracentesis today for his pleural effusion
Will keep him on clears and NPO after midnight for possible flex sig tomorrow pending his pulmonary status for the procedure
Hgb has been stable in 8-9 range
Assessment / Plan
-
74-year-old male with past medical history CAD status post CABG x 3, PAD left femoral endarterectomy with bilateral iliac artery stents (2019) on aspirin and Plavix, V. tach on Amio status post ICD, CHF with reduced EF, hypertension, diabetes,
hyperlipidemia, prostate cancer status post XRT, pneumonia, left-sided effusion recent diagnosis of anemia with thrombocytopenia that was being worked up as an outpatient by hematology status post iron infusion who presents to the emergency room
with 4-day history of rectal bleeding. Asked to evaluate for the same. The patient states that approximately 4 days ago he started having some bright red blood per rectum on the tissue and in the bowl. This was a small amount. 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 He did state that there were some clots in it. He does strain on occasion to have bowel movements. He does have a cough, he
is also had some increased shortness of breath. He had an episode of red blood overnight. None further for nursing this morning. Presentation WBC 5.7, hemoglobin 8.9, platelets 98. Repeat pending. Did have 1 episode of red blood overnight.
None further. Patient was transfused 2 units PRBC this am. Awaiting repeat labs. Discussed with nursing. Rectal exam performed by myself without any external hemorrhoids, no obvious masses, dried blood on the outside of his skin. Scant red blood
on rectal exam. Patient had a virtual colonoscopy 01/2024 that was negative. His last endoscopic colonoscopy was approximately 8 years ago that was 'normal' per patient. Records unavailable to us. He has never had an endoscopy before. He is
followed by Dr. Daquan [facility] for elevated LFTs He had a recent ultrasound records unavailable to us. Although Dr. Pickard wanted him to have an upper endoscopy to rule out varices when he saw him approx 6 weeks ago. He has had increasing lower
extremity edema prompting increase in Lasix by cardiology. CT imaging here confirming cirrhosis. The patient does have a history of prostate cancer status post XRT however with no prior history of rectal bleeding in the past. Recent consult by
Criselda for low Hgb and PLT per . Had iron per . Patient has also been a little 'sleepy' past couple days which thought from back pain. Patient has some asterixis on exam. He is AAO x3.
Impression:
Rectal bleeding. Hx prostate CA/XRT. Radiation proctitis is a possibility
L pleural effusion
Cirrhosis. Ascites tapped 11/15
Lower GI bleed/Rectal Bleeding-> scant rectal bleeding on rectal, no obvious mass, hemorrhoid or rectal varices identified. None further.
-> Hx prostate Ca s/p XRT
-> Virtual [place] 01/2024, last endoscopic colonoscopy 8 yrs ago per patient/, (held off secondary to comorbidities and ASA/Plavix)
-> Resumed ASA, Plavix on hold since admission.
Cirrhosis on CT Imaging, followed by Dr. Butt-> r/o MASLD
Ascites-> SAAG >1.1 AND t PROTEIN <2.5 SUGGESTING PORTAL HYPERTENSIVE ETIOLOGY FOR THE ASCITES
No SBP noted.
Asterixis-> resolved with Lactulose and Xifaxan, patient usually constipated. Now having 2 BM daily on BID lactulose.
HFrEF hx VT with ICD
MARIA DOLORES on CKD
Elevated Lipase, likely secondary to increased renal function as patient without any abd pain or signs of pancreatitis.
Left pleural effusion
Subjective
Subjective
Date of Service: November 18, 2024
No further bleeding since yesterday am. Passing brown BM this am
Objective
Data Reviewed
Laboratory Data:
Laboratory Results
11/18/24 02:40
Laboratory Results
PT 17.7 Sec (11.4-14.6) H 11/17/24 12:34
INR 1.41 11/17/24 12:34
APTT 34.5 Sec (23.4-35.0) 11/17/24 12:34
Total Bilirubin 2.5 mg/dl (0.2-1.3) H 11/18/24 02:40
AST 206 U/L (17-59) H 11/18/24 02:40
ALT 175 U/L (0-50) H 11/18/24 02:40
Alkaline Phosphatase 98 U/L (38-126) 11/18/24 02:40
Lipase 616 U/L (23-300) H 11/12/24 00:04
Vital Signs and I&O:
Vital Signs
Temp Pulse Resp BP Pulse Ox
98.2 F 67 23 100/48 99
11/18/24 08:00 11/18/24 07:22 11/18/24 07:22 11/18/24 06:00 11/18/24 07:22
I&O
11/17/24 11/18/24 11/19/24
06:59 06:59 06:59
Intake Total 150 / 150 960 / 960
Output Total 1200 / 1200 2120 / 2120
Balance -1050 / -1050 -1160 / -1160
Physical Exam
Physical Exam
GI: Soft, Distended (softly distended) and Non Tender
--- NOTE | 2024-11-18 09:06 | W.PN.ID1 ---
Date of Service
Date of Service: November 18, 2024
Today's Communication
Continue antibiotics.
Assessment / Plan
Pulmonary infiltrate
Pleural effusion
Sputum culture with Pseudomonas aeruginosa
Lower GI bleed
Renal insufficiency
CHF (EF ~ 35%)
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
Ascites; s/p recent paracentesis for 2L
DM
HLD
HTN
CAD; Hx DC
PAD
Hx prostate CA
V. tach
CHF with depressed EF
COPD
Recommendations:
White count normal. Patient remains afebrile.
Sputum culture with Pseudomonas, although difficult to differentiate colonizer versus true pathogen. Sputum with only moderate WBCs.
Continue with cefepime (d#4)
Follow for possible clinical improvement in cough.
Continue with Acapella device, along with incentive spirometry.
Monitor white count and temperature curve.
Patient for possible flex sig tomorrow, and possible thoracentesis later today.
����������������������������������������������������������
Chief Complaint
-: Pneumonia and Other (GI bleed)
Subjective / Review of Systems
Patient seen and examined. Chart reviewed. Patient developed recurrent hematochezia yesterday and transferred to ICU for higher level of care.
Review of Systems: No Fever, No Chills, Cough, Sputum Production (Scant) and No Abdominal Pain
Vital Signs / Physical Exam
Vital Signs
Vital Signs
Temp Pulse Resp BP Pulse Ox
98.2 F 67 23 100/48 99
11/18/24 08:00 11/18/24 07:22 11/18/24 07:22 11/18/24 06:00 11/18/24 07:22
Physical Exam
Constitutional: No Acute Distress, Comfortable, Non-toxic and Obese
Eyes: Sclera Anicteric
Cardiovascular: Regular Rate and S1/S2; Negative S3/S4
Pulmonary: Wheezes (Mild; scattered), Coarse and Non Labored
Gastrointestinal: Soft, Non Tender, Distended, Normal Bowel Sounds and No Rebound
Extremities: Edema; Negative Cyanosis or Erythema
Skin: Warm and Dry; Negative Rash or Jaundice
Neurological: Awake and Alert
Psychological: Calm
Objective Data
Lab Data
Lab Results
11/18/24 02:40
PT 17.7 Sec (11.4-14.6) H 11/17/24 12:34
INR 1.41 11/17/24 12:34
APTT 34.5 Sec (23.4-35.0) 11/17/24 12:34
Estimated Creat Clear 34 ml/min 11/18/24 02:40
Lactic Acid 0.9 mmol/L (0.7-2.0) 11/17/24 12:34
Total Bilirubin 2.5 mg/dl (0.2-1.3) H 11/18/24 02:40
AST 206 U/L (17-59) H 11/18/24 02:40
ALT 175 U/L (0-50) H 11/18/24 02:40
Alkaline Phosphatase 98 U/L (38-126) 11/18/24 02:40
Most recent labs reviewed.
Micro Results:
11/15/24 10:25 Body Fluid Culture - Preliminary
Peritoneal Fluid No Growth After 48 Hours
Gram Stain - Preliminary
11/14/24 11:36 Respiratory Culture - Final
Sputum Pseudomonas aeruginosa
Gram Stain - Final
11/15/24 15:44 Nasal Screen MRSA (PCR) - Final
Nose MRSA not detected - performed by PCR methodology.
11/12/24 04:54 Urine Culture - Final
Urine No Significant Growth
Respiratory Culture Final 11/14/24
Few Pseudomonas aeruginosa
Few Usual Respiratory Daria
Organism 1 Pseudomonas aeruginosa
1. Pseudomonas aeruginosa
M.I.C. RX
--------- ---
Aztreonam <=4 S
Cefepime <=2 S
Ceftazidime 4 S
Ciprofloxacin <=0.25 S
Meropenem <=1 S
Piperacillin/Tazobactam <=8 S
Tobramycin <=2 S
Imaging:
11/14/2024 CT chest without IV contrast: moderate loculated left pleural effusion noted. Moderate left lower lobe consolidation concerning for pneumonia. Moderate lingular consolidation also concerning for pneumonia. Mild right lower lobe
consolidation likely atelectasis. Small right pleural effusion noted. Cardiomegaly noted. Please see full dictation for additional detail.
11/12/2024 ECHO (TTE): Severely dilated LV with moderately reduced systolic function. LVEF approximately 35%. Mild aortic stenosis. Mild to moderate tricuspid regurgitation.
Care Review
Plan reviewed with: Physician (Critical Care)
--- NOTE | 2024-11-18 09:41 | PTCARENOTE ---
Assumed care at 0700. no changes in assessment noted. Remains on 2L, frequent moist non productive cough. AV paced on monitor, not requiring pressor support for BP, abdomen distended, advanced to clear liq. Pivoted to BSC for liquid maroon stool.
voided without issue. sacral foam applied. In chair. call ralph in reach, at bedside. Plan for thoracentesis discussed and consent signed.
[2024-11-18 09:48] LABS: Magnesium 2.4 mg/dl (1.6-2.3)
[2024-11-18 10:07] LABS: LDH 266 U/L (120-246)
--- NOTE | 2024-11-18 10:47 | W.PN.CD ---
Today's Communication / Plan
-
Respiratory status stable on 2 L 98%.
Continue diuretics and monitor renal function. If increased bleeding then we will need to hold diuretic
Okay to proceed with additional GI testing understanding patient has increased risk for anesthesia as outlined above. Currently patient plan for flexible sigmoidoscopy by Dr. Vargas
If no further bleeding would resume aspirin 81 mg a day.
Continue to monitor platelet count
Impression / Plan
-
I/P: 74M with ventricular tachycardia (on amiodarone, Medtronic ICD), coronary artery disease status post bypass, HFrEF, hypertension, hypercholesterolemia, PAD, cirrhosis of the liver, type 2 diabetes mellitus, and prior prostate cancer presented
to the emergency department with a chief complaint of BRBPR.
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
HFrEF, acute on chronic, severe requiring hospitalization
Ischemic cardiomyopathy, EF 35%
- Dry weight thought to be approx 100 kg, diuresis directed by nephrology as he presented with MARIA DOLORES -this requires intensive monitoring
- GDMT as tolerated:
-KYLER/ARB/ARNI: Entresto on hold with MARIA DOLORES
-SGLT2 inhibitor: None with MARIA DOLORES
-Aldosterone agonist: Spironolactone on hold with MARIA DOLORES
-Beta hemant: Carvedilol 6.25 mg BID (recently lowered)
-Isosorbide/Hydralazine:�Not started due to low BP
-ICD: Implanted (Medtronic)
-continue lasix 80mg IV bid with nephrology managing as well. Patient had GI bleeding yesterday which appears to have resolved but there issues with increased bleeding may need to hold diuretic also may consider holding second dose of
diuretic today if patient is getting prepped for colonoscopy.
- Aspirin held with acute GI bleed and thrombocytopenia. Bleeding has improved and platelet count 67. Resume aspirin if patient without further evidence of acute bleeding
Rectal bleeding acute noted 11/17/2024.
-Hemoglobin 8.6. INR 1.4. No clear evidence of acute bleeding 11/18/2024
-Additional assessment being directed by GI.
-hold ASA 81mg
- Continue to optimize respiratory status patient does have increased risk for anesthesia but currently on 2 L and respiratory status stable. Considering issues with acute GI bleeding this admission reasonable to proceed with additional GI
evaluation understanding patient has some increased risk
Pleural effusion, left
- Moderate on CXR in ER, limited target for thoracentesis by ultrasound
- Status post left thoracentesis 11/03/2024 for 1100 mL - transudative by lights
- Additional thoracentesis been directed by primary team
Cirrhosis, with ascites
- Status post paracentesis for 2 L 11/15/2024
- GI following
MARIA DOLORES
- BUN 35, creatinine 1.9 in August
- 3.0 on admission now 2.2
- Seems to be improving with diuresis
Pseudomonas, on sputum culture, ID following
Thrombocytopenia, chronic
- H/H ~12/31 & Plt 109 while he was in [facility]
- DAPT on hold, after evaluation by GI, cardiology is okay with single agent once stable (ASA 81mg daily): currently on hold with active rectal bleeding
- Platelets 67.
CAD, s/p CABG
- Stable without chest pain
- Cardiac PET last month consistent with inferior and apical scar. No reversible defects.
- Continue statin; aspirin held
Ventricular tachycardia
- None on tele
- Continue amiodarone and carvedilol
- s/p Medtronic ICD
- Patient remains on amiodarone. Will need to review with GI and patient who is reported to have underlying liver disease.
Mild , mild/moderate TR, outpatient follow up
Type 2 diabetes mellitus, per primary service
Cirrhosis of the liver, follows with Dr. Butt
PAD, follows with Dr. Orr L femoral endarterectomy (2019), chronically occluded superficial femoral arteries bilaterally
Carotid artery stenosis, high-grade, >90% bilaterally, followed by Vascular
MARION
Physical Exam
Vital Signs/Labs
Vital Signs
Temp Pulse Resp BP Pulse Ox
98.2 F 61 16 112/57 98
11/18/24 08:00 11/18/24 09:25 11/18/24 09:25 11/18/24 09:25 11/18/24 09:25
11/17/24 11/18/24 11/19/24
06:59 06:59 06:59
Actual Weight 102.4 kg 101.6 kg
11/18/24 02:40
PT 17.7 Sec (11.4-14.6) H 11/17/24 12:34
INR 1.41 11/17/24 12:34
APTT 34.5 Sec (23.4-35.0) 11/17/24 12:34
Magnesium 2.4 mg/dl (1.6-2.3) H 11/18/24 02:40
11/12/24
11:29
Ldk-B-Xkdeajbhftt Pept 2670
Physical Exam
Constitutional: Comfortable and Other (Sitting in chair comfortable on 2 L nasal cannula oximetry 98%)
Cardiovascular: Rhythm & rate is regular
Respiratory: Other (Wheezes at bases bilaterally)
GI: Non tender and Other (Distended)
Neuro/Psych: Alert
Data Reviewed
-
Date of Service: November 18, 2024
Medical Decision Making: Reviewed Test Results
Echo: Report Reviewed by me
X-Ray/CT/US/MRI/NUC/PET: Report Reviewed by me
Medical Tests (PFT, Pathology etc): Report Reviewed by me
Labs: Labs Reviewed by me
--- NOTE | 2024-11-18 11:18 | PTCARENOTE ---
Left Thoracentesis performed by Dr. Juárez. 1450cc blood tinged serosang fluid removed. BP low after procedure. 250cc LR bolus given.
[2024-11-18] MEDS: FLEXBUMIN 50 IV (11:28)
[2024-11-18] MEDS: LR 250 IV (11:28)
--- NOTE | 2024-11-18 11:28 | OR.RPT ---
Operative Report
Operative Report
Thoracentesis, Left Side
Consent: Written informed consent was obtained from the patient.
Indication: Dyspnea, orthopnea, moderate to large left-sided pleural effusion.
Sedation: None
Procedure: Patient was placed in seated position. [id number] ultrasound was used to identify large fluid pocket in the lower lateral left hemithorax. Area was marked. Skin was cleaned with chlorhexidine and under sterile condition drape was
applied. 1 mL of lidocaine was injected under the skin at the marked area. Under real-time ultrasound guidance, needle was gently advanced under suction until pleural fluid was aspirated. Additional lidocaine was injected just around the pleura
and on the way back in the tract. A small skin leo was placed with a scalpel. Thoracentesis catheter under suction was gradually advanced. Once pleural fluid was aspirated, needle was held still and plastic catheter was advanced into the pleural
space. Needle was subsequently withdrawn. A syringe was connected to the catheter and 60 mL of fluid was removed and sent for cultures as well as ordered fluid studies. Suction tubing was attached and total of 1450 mL of serous fluid, mildly
sanguinous, was collected. Ultrasound was used to confirm near resolution of fluid pocket. Normal lung sliding was also noted.
Catheter was then withdrawn and procedure concluded. Occlusive dressing was applied.
Postprocedure chest x-ray without obvious pneumothorax.
Blood loss: 1-2 ml
Complications: None. F/u CXR improved, no pneumothorax noted.
Time spent: 45 min
Date of service: 11/18/2024
--- NOTE | 2024-11-18 11:47 | W.PN.NEPH.PH ---
Today's Communication / Plan
-
follow BMP
Assessment/Plan
-
Assessment
MARIA DOLORES (B/L cr 1.9 dating back 2021)
hyponatremia
Anemia
PNA
pancytopenia
HFrEF 35% with Moderate TR
SOB
cirrhosis
left pleural effusion
mild ascites
Plan
abx continues
Holding Entresto, Aldactone
Status post left thoracentesis 11/03/2024 , repeat thoracentesis 11/18
s/p para 2L 11/15
Continue diuresis with Lasix IV 80mg BID can reduce for colonoscopy prep
follow hgb
-
-
Date of Service: November 18, 2024
CC / HPI / ROS
-
Chief Complaint:
MARIA DOLORES
History of Present Illness:
Na stable 133
MARIA DOLORES/Cr down to 2.2
BP stable low
diuresing well with IV lasix
hgb down to 8.6
transferred to ICU after BRBPR
Review of Systems:
no CP/SOB
Labs
-
Labs:
WBC 5.6 10^3/uL (4.8-10.8) 11/18/24 02:40
RBC 2.51 10^6/uL (4.70-6.10) L 11/18/24 02:40
Hct 25.1 % (39.0-52.0) L 11/18/24 02:40
Plt Count 67 10^3/uL (130-400) L 11/18/24 02:40
Sodium 133 mmol/L (135-145) L 11/18/24 02:40
Potassium 4.7 mmol/L (3.5-5.1) 11/18/24 02:40
Chloride 104 mmol/L (98-107) 11/18/24 02:40
Carbon Dioxide 23 mmol/L (22-30) 11/18/24 02:40
BUN 67 mg/dl (9-20) H 11/18/24 02:40
Creatinine 2.2 mg/dL (0.7-1.3) H 11/18/24 02:40
eGFR 30.28 11/18/24 02:40
Glucose 132 mg/dl (70-99) H 11/18/24 02:40
Calcium 8.2 mg/dl (8.4-10.2) L 11/18/24 02:40
Jwn-N-Ikhotlhsjnm Pept 2670 pg/ml 11/12/24 11:29
Albumin 2.8 g/dl (3.5-5.0) L 11/18/24 02:40
Physical Exam
-
Vital Signs:
Vital Signs
Temp Pulse Resp BP Pulse Ox
98.2 F 60 20 116/55 100
11/18/24 08:00 11/18/24 11:20 11/18/24 11:20 11/18/24 11:20 11/18/24 11:20
Cardiovascular:: Regular rate and rhythm
Respiratory:: Bilateral: Coarse
Lung Excursion:: Normal
Abdomen:: Nontender and Soft
Bowel Sounds:: Normal
Extremity Edema:: +2: Bilateral:
[2024-11-18 12:01] LABS: Glucose - Point of Care 176 mg/dl (70-99)
[2024-11-18 13:41] LABS: Hemoglobin 9.0 g/dL (13.0-18.0)
[2024-11-18 13:46] LABS: Body Fluid Second Tech ASW
--- NOTE | 2024-11-18 14:30 | PTCARENOTE ---
Tap water enema given. Escorted to GI lab for flex-sigmoidoscopy.
--- NOTE | 2024-11-18 14:40 | W.PN.UPDATE ---
Update Note
Progress Note Update
Flex sig done
Distal rectal ectasias, bled with contact, cauterized w APC
Stool in rectosigmoid, poor prep
REC:
Resume diet
Monitor for rebleeding.
Can repeat flex sig with better prep to cauterize possible additional rectal ectasias if rebleeding
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
--- NOTE | 2024-11-18 15:47 | CM ---
Flex sigmoid done, poor prep, did coagulate for bleed. IV/Cefepime and IV/Lasix. Therapy attempted eval but patient was bleeding rectally and eval deferred at that time. Discharge POC: Await therapy eval.
[2024-11-18 16:34] LABS: Glucose - Point of Care 161 mg/dl (70-99)
--- NOTE | 2024-11-18 20:38 | PTCARENOTE ---
Assumed care of pt at 1900. Pt is A/O x4, flat affected noted. OOB to chair at start of shift (remains OOB at this time). No c/o pain. Assessment as documented in nursing shift assessment flowsheet.
[2024-11-18] MEDS: CRESTOR 10 MG PO (21:17)
[2024-11-18 22:05] LABS: Glucose - Point of Care 269 mg/dl (70-99)
[2024-11-18] MEDS: NOVOLOG FLEXPEN 5 UNITS SC (22:31)
[2024-11-18] MEDS: ROBITUSSIN 200 MG PO (22:48)
[2024-11-19] VITALS (24 sets, daily range): BP systolic 86–145; BP diastolic 41–109; BMI 31.6
--- NOTE | 2024-11-19 00:35 | PTCARENOTE ---
Assessment unchanged. Pt back to bed around 2245 after HS meds. Able to ambulate to BR to have BM prior. 100% AV paced on monitor, SpO2 96% on RA. PRN Robitussin given for cough, see EMAR.
--- NOTE | 2024-11-19 05:15 | PTCARENOTE ---
0400 assessment unchanged. Pt incontinent of large castro liquid BM, no humberto red blood noted. Pt desatting to 87-88% on RA while asleep, placed on 2LNC, now 95%.
[2024-11-19 05:21] LABS: Hematocrit 27.1 % (39.0-52.0); Hemoglobin 8.9 g/dL (13.0-18.0); Mean Corp Hgb Conc. 32.8 g/dL (33.0-37.0); Mean Corpuscular Volume 99.6 fL (80.0-94.0); Platelet Count 96 10^3/uL (130-400); Red Cell Dist. Width 16.5 % (11.5-14.5)
[2024-11-19] MEDS: STERILE WATER FOR INJECTION 10 ML IV ×3 (05:49→22:46)
[2024-11-19] MEDS: MAXIPIME 1000 MG IV ×3 (05:49→22:46)
[2024-11-19 05:54] LABS: ALT (SGPT) 243 U/L (0-50); AST (SGOT) 266 U/L (17-59); Albumin 3.3 g/dl (3.5-5.0); Alkaline Phosphatase 101 U/L (38-126); Blood Urea Nitrogen 72 mg/dl (9-20); Calcium 8.4 mg/dl (8.4-10.2); Carbon Dioxide 24 mmol/L (22-30); Chloride 103 mmol/L (98-107); Estimated Creatinine Clearance 32 ml/min; Glucose 105 mg/dl (70-99); Potassium 4.3 mmol/L (3.5-5.1); Sodium 134 mmol/L (135-145); Total Protein 6.5 g/dl (6.3-8.2); eGFR 28.71
[2024-11-19] MEDS: PULMICORT 0.5 MG INH (07:25)
[2024-11-19] MEDS: DUONEB 3 ML INH (07:25)
--- NOTE | 2024-11-19 08:01 | W.PN.HOSP.TC ---
Today's Communication/Plan
-
Thoracentesis performed yesterday 11/20/2019: Removed 1500 mL of serous fluid. Postprocedure chest x-ray without obvious pneumothorax
Discussion pending second pleural fluid studies.
Flexible sigmoidoscopy yesterday 11/19/24: Multiple angiectasias that bled on contact and were cauterized
Platelets increased to 96,000. LFTs increasing
Assessment / Plan
Assessment / Plan
Impression
Mr. Jonh Rodriguez is a 74-year-old male with past medical history significant for CAD status post CABG and stenting, peripheral arterial disease status post stenting, on dual antiplatelet therapy, CHF with depressed EF and history of VT status post
ICD on amiodarone, type 2 diabetes, chronic pulmonary hypertension, recent pneumonia with left-sided pleural effusion status post thoracenteses 8 days ago presented to the emergency department with bright red blood per rectum. Has heme positive red
stool in the ED.
Plan
# GI bleed
# Left lower quadrant pain
Patient presented with stools of mostly clots, dark red stools
Hemoglobin stable at 9. baseline hemoglobin was 10.2 in August. Type and screen-got 1 unit of PRBC
Flexible sigmoidoscopy that demonstrated Multiple angioectasias that bled on contact and were cauterized.
ICU recommendations
� Coags, ammonia, VBG, urine sodium pending. Follow serial H&H
� Pantoprazole IV 40 mg twice daily
# Thrombocytopenia
Likely causes are renal sufficiency and hepatic insufficiency
New. Platelet count ~80,000. 71,000 on 11/20/2024
- hold antiplatelet Plavix
� Platelet transfusion if platelet count below 50,000 and active bleeding
� Platelet transfusion if platelet count below 10,000
# Pneumonia
# Cough, chronic COPD
� CT chest: Left lower lobe pneumonia
� Sputum culture positive for Pseudomonas. Unclear if sputum culture Pseudomonas is a colonizer versus true pathogen.
ID consult
� Transition to cefepime from Zosyn for renal sufficiency. Discontinue vancomycin as no MRSA recovered.
# Left pleural effusion
thoracentesis on 11-03--1100 cc of serosanguineous fluid-transudate. Negative for malignant cells.
- Continue with Lasix
Pulmonology consulted
� PFTs 11/16/2024 demonstrated severe obstruction (COPD). Adjusted inhalers, which should be continued at home
� Transition to p.o. antibiotic course for 14 days.
� Outpatient [facility] testing. Pulmonology appointment scheduled on 11/22/2024
# Ascites and transaminitis
AST ALT in the 100s. Ammonia elevated at 97. Total bili 1.2 to 1.5
recalls elevated LFTs since 2 years ago
- likely secondary to fluid overload/heart failure. Follow-up after Lasix
GI recommendations
- Okay to restart aspirin. Continue holding Plavix
� If loose stool, decrease lactulose 20 g twice daily.
� Pending alpha-fetoprotein
- SAAG greater than 1.1 and total protein less than 2.5, suggesting portal hypertensive etiology for ascites
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
Follow-up with Dr. Butt as per sheet music salesperson for endoscopy outpatient
# Acute on chronic HFrEF
# Ischemic cardiomyopathy. Coronary disease with history of stent, CABG in 1994
# Ventricular tachycardia, ventricular fibrillation. S/P-BiV ICD/pacer original placement 2007 with revision generator changed in 2013
8 pound weight gain
Patient stated sysbp usually 88-95
- Hold Entresto and Aldactone
� Coreg 6.25 mg P.o. twice daily
- Amio for Vtach
Cardiology recommendations
� Echo EF 35%
� GDMT: Entresto, SGLT2, spironolactone held due to MARIA DOLORES. Carvedilol 12.5 twice daily. Medtronic ICD
� Resume aspirin 81 mg daily if no further bleeding. Since patient provide follow-up in this morning, we are continuing to hold aspirin
# MARIA DOLORES on CKD
Likely cardiorenal
Creatinine 3 in the ED. Down to 2.4. eGFR 25
Hold Entresto, Metformin and Aldactone
Lasix 80 mg twice daily IV
Nephrology consulted
# Microscopic hematuria. OP Urology F/U
History of nephrolithiasis
History of prostate cancer with history of radiation
CT-No nephrolithiasis or hydronephrosis on either side. No aggressive renal mass appreciated. The ureters are nondilated.The prostate gland is within normal limits.No significant bladder wall thickening or adjacent fat stranding.
# Hyperlipidemia- Statin
# Pulmonary hypertension
# Peripheral artery disease
# LBBB
# Ex Smoker
DVT prophylaxis-SCDs
Diet: 2 g sodium
Full code
Dispo: Patient came from home and is most interested in going home
� PT and OT recommended home health
Anticipated Discharge: > 48 hours
Subjective/Interval History
-
Date of Service: November 19, 2024
No acute events overnight. Patient had his first scratch the bowel movement that was nonbloody today. He endorsed more bowel movements today after his flexible sigmoidoscopy yesterday. Low residue diet resumed. Patient states his breathing is
comfortable.
Objective Data
-
Labs:
Laboratory Results
11/19/24
04:36
WBC 9.1
Hgb 8.9 L
Hct 27.1 L
Plt Count 96 L D
Sodium 134 L
Potassium 4.3
Chloride 103
Carbon Dioxide 24
BUN 72 H
Creatinine 2.3 H
Glucose 105 H
Calcium 8.4
Total Bilirubin 2.1 H
AST 266 H
ALT 243 H
Alkaline Phosphatase 101
Vital Signs:
Vital Signs
Temp Pulse Resp BP Pulse Ox
97.7 F 62 18 117/60 97
11/19/24 07:23 11/19/24 07:33 11/19/24 07:33 11/19/24 06:00 11/19/24 07:33
I&O
11/18/24 11/19/24 11/20/24
06:59 06:59 06:59
Intake Total 960 / 960 1020 / 1020
Output Total 2120 / 2120 2600 / 2600
Balance -1160 / -1160 -1580 / -1580
Review of Systems
-
History Source: Patient
All other systems: Reviewed and negative
Respiratory: Reports Cough
Musculoskeletal: Reports Edema
Physical Exam
-
General: Well Developed, Well Nourished, No Apparent Distress and Comfortable
HEENT: Normocephalic, Atraumatic, Moist Mucous Membranes, Anicteric, Nose Appears Normal and Ears Appear Normal
Respiratory: Clear to Auscultation
Cardiac: Regular Rhythm and S1/S2
GI: Soft, Nontender, Normal Bowel Sounds and Distended
Musculoskeletal: No Clubbing, No Cyanosis, Edema, Right Lower Extrem and Edema, Left Lower Extrem
Skin: Warm and Dry
Neuro: Awake, Alert, Oriented, Nonfocal/Grossly Intact and Central Nerve's Intact
Psych: Calm
--- NOTE | 2024-11-19 08:18 | W.PN.CD ---
Today's Communication / Plan
-
resume coreg
hold ASA and monitor for re-bleeding
IV lasix
Impression / Plan
-
I/P: 74M with ventricular tachycardia (on amiodarone, Medtronic ICD), coronary artery disease status post bypass, HFrEF, hypertension, hypercholesterolemia, PAD, cirrhosis of the liver, type 2 diabetes mellitus, and prior prostate cancer presented
to the emergency department with a chief complaint of BRBPR.
Primary Pearl Cutter: Dr. Damon ([facility])
HFrEF, acute on chronic, severe requiring hospitalization
Ischemic cardiomyopathy, EF 35%
- Dry weight thought to be approx 100 kg, diuresis directed by nephrology as he presented with MARIA DOLORES -this requires intensive monitoring--suspect his dry weight is lower than this
- GDMT as tolerated:
-KYLER/ARB/ARNI: Entresto on hold with MARIA DOLORES
-SGLT2 inhibitor: None with MARIA DOLORES
-Aldosterone agonist: Spironolactone on hold with MARIA DOLORES
-Beta hemant: Carvedilol 6.25 mg BID (recently lowered) resumed 11/19
-Isosorbide/Hydralazine:�Not started due to low BP
-ICD: Implanted (Medtronic)
-continue lasix 80mg IV bid with nephrology managing as well.
Rectal bleeding acute noted 11/17/2024.
-Hemoglobin 8.9. INR 1.4.
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
- hold ASA 81mg. and monitor for re-bleeding
Pleural effusion, left
- Moderate on CXR in ER, limited target for thoracentesis by ultrasound
- Status post left thoracentesis 11/03/2024 for 1100 mL - transudative by lights
- Additional thoracentesis been directed by primary team
Cirrhosis, with ascites
- Status post paracentesis for 2 L 11/15/2024
- GI following
MARIA DOLORES
- BUN 35, creatinine 1.9 in August
- 3.0 on admission now 2.2-2.4
- Seems to be improving with diuresis
Pseudomonas, on sputum culture, ID following
Thrombocytopenia, chronic
- H/H ~12/31 & Plt 109 while he was in [facility]
- DAPT on hold, after evaluation by GI, cardiology is okay with single agent once stable (ASA 81mg daily): currently on hold with active rectal bleeding
- Platelets 67.
CAD, s/p CABG
- Stable without chest pain
- Cardiac PET last month consistent with inferior and apical scar. No reversible defects.
- Continue statin; aspirin held
Ventricular tachycardia
- None on tele
- Continue amiodarone and carvedilol
- s/p Medtronic ICD
- Patient remains on amiodarone. Will need to review with GI and patient who is reported to have underlying liver disease.
Mild , mild/moderate TR, outpatient follow up
Type 2 diabetes mellitus, per primary service
Cirrhosis of the liver, follows with Dr. Butt
PAD, follows with Dr. Orr L femoral endarterectomy (2019), chronically occluded superficial femoral arteries bilaterally
Carotid artery stenosis, high-grade, >90% bilaterally, followed by Vascular
[facility]
Physical Exam
Vital Signs/Labs
Vital Signs
Temp Pulse Resp BP Pulse Ox
97.7 F 62 18 117/60 97
11/19/24 07:23 11/19/24 07:33 11/19/24 07:33 11/19/24 06:00 11/19/24 07:33
11/18/24 11/19/24 11/20/24
06:59 06:59 06:59
Actual Weight 101.6 kg 100 kg
11/19/24 04:36
11/19/24 04:36
PT 17.7 Sec (11.4-14.6) H 11/17/24 12:34
INR 1.41 11/17/24 12:34
APTT 34.5 Sec (23.4-35.0) 11/17/24 12:34
Magnesium 2.4 mg/dl (1.6-2.3) H 11/18/24 02:40
11/12/24
11:29
Mwn-P-Ykixpkqmivi Pept 2670
Physical Exam
Constitutional: No acute distress
EENT: Moist mucous membranes
Cardiovascular: Rhythm & rate is regular, Systolic murmur absent, Pedal edema present and JVD present
Respiratory: Respiratory effort normal and Lungs clear to auscul.
Neuro/Psych: AO x 3
Data Reviewed
-
Date of Service: November 19, 2024
EKG: Other (Tele: AV paced 60)
Labs: Labs Reviewed by me
[2024-11-19] MEDS: MUCINEX 600 MG PO ×2 (08:39→19:51)
[2024-11-19] MEDS: PACERONE 200 MG PO (08:39)
[2024-11-19] MEDS: NOVOLOG FLEXPEN-MODERATE RESISTANCE SC (08:39)
[2024-11-19] MEDS: NSS (PRESERVATIVE FREE) 10 ML IV ×2 (08:40→19:53)
[2024-11-19] MEDS: XIFAXAN 550 MG PO ×2 (08:40→19:51)
[2024-11-19] MEDS: DUPHALAC/CHRONULAC 20 GRAMS PO ×2 (08:40→19:51)
[2024-11-19] MEDS: SOLU-MEDROL PF 40 MG IV (08:41)
[2024-11-19] MEDS: PROTONIX IV 40 MG IV ×2 (08:41→19:53)
[2024-11-19] MEDS: LASIX 80 MG IV ×2 (08:41→16:23)
[2024-11-19] MEDS: COREG 6.25 MG PO ×2 (08:43→19:51)
[2024-11-19 08:49] LABS: Glucose - Point of Care 111 mg/dl (70-99)
--- NOTE | 2024-11-19 08:49 | W.PN.PUL3 ---
Today's Communication / Plan
-
- Discontinue DuoNeb and budesonide
- Start scheduled twice daily Advair and Spiriva
- Switch IV Solu-Medrol to prednisone 30 mg daily for 2 more days
- Patient transferred from ICU to IMU
- Pulmonary team will continue to follow along
Assessment
-
74-year-old male with a past medical history of hypertension, hyperlipidemia, chronic cough, DM type II, history of prostate cancer, history of VT s/p AICD (02/2008), CAD s/p CABG (1994) + coronary stent, chronic systolic heart failure with
diastolic dysfunction, ICM, chronic amiodarone therapy and PAD s/p bilateral common iliac artery stents who presents with rectal bleeding and weakness for 1 week. Patient reported that he started clots as well. Initially in the ER he was afebrile
with pulse rate 76, respiratory rate 17, BP 90/53, and saturating 96% on room air.. Initial labs pertinent for Hb 8.9, platelet count 98, sodium 130, potassium 5.3, creatinine 3.0, lipase 616, and urinalysis slightly cloudy with moderate bacteria.
Urine culture was collected. CXR showed a moderate left-sided pleural effusion. Of note he recently had a thoracentesis on 11/03/2024 where IR removed 1100 cc of serosanguineous transudative pleural fluid. He was started on a PPI in the ER and
admitted to the IMU for further care.. Cardiology was consulted given his history of CHF. Diuresis was started and GI was also consulted as he has ascites. He does have a fourdrinier machine tender, Dr. Butt, that he was told to follow-up for in the future
for an endoscopy. On 11/13, patient was short of breath and was found to be wheezing. Pulmonary service now consulted for additional management/recommendations.
11/17, patient developed brief hypotension after hematochezia and was transferred to ICU. In the ICU patient had stable hemoglobin and had another episode of hematochezia, small-volume. In view of COPD exacerbation and orthopnea he was treated
with steroids, bronchodilators and subsequently had a left-sided thoracentesis performed with 1450 mL of transudative fluid removed. Postprocedure respiratory status improved, he subsequently had a flexible sigmoidoscopy performed showing areas of
ectasia suspicious for radiation proctitis and received cautery. 11/19, patient was transferred to IMU.
#1. Hematochezia, recurrent with transient hypotension
- Patient initially presented with hematochezia. Plavix has been on hold since and continuing on aspirin, recurrent episodes on 11/17 with transient hypotension
- Patient transferred to ICU for transient hypotension and bright red blood per rectum. Currently hemodynamically stable. No Further episodes since
- Continue to hold aspirin and Plavix. Coagulation panel normal, off Levophed now.
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
#2. Decompensated cirrhosis
-Asterixis on admission, hepatic encephalopathy. Improved since he has been on lactulose and rifaximin, continue. Normal ammonia. Patient at risk of worsening encephalopathy with GI bleed. Monitor closely for any mental status changes in the
critical care unit.
-Ascites and left pleural effusion. Status post paracentesis (11/15) and thoracentesis(11/03), suggestive of transudative fluid, related to decompensated cirrhosis. Fluid studies not suggestive of SBP.
-Repeat Thoracentesis in ICU 11/18, fluid removed 1450 ml, transudative
-Coagulopathy with mild thrombocytopenia. Stable
-Mild hyponatremia. Nephrology service on case, stable at 134
#3. Acute kidney injury with suspect underlying chronic kidney disease.
-Nephrology service on case, currently Entresto and spironolactone have been on hold. Receiving IV Lasix
-Avoid hypotension, pressors as needed to keep MAP above 65, monitor urine output closely
-At risk of hepatorenal syndrome with underlying decompensated cirrhosis.
-SBP ruled out
#4. Left sided pleural effusion
- Thoracentesis #1, 11/03, 1100 ml fluid removed, Transudative on fluid analysis. Suspect related to underlying cirrhosis
- Thoracentesis #2, 11/18, 1450 ml fluid removed, Transudative
#5. Left lower lobe pneumonia versus compressive atelectasis due to effusion
- Pseudomonas noted on sputum cultures, unclear if true pathogen versus colonizer. ID service on case, continue antibiotics for now
- Pleural fluid transudative not suggestive of empyema or parapneumonic effusion.
#6. COPD with severe obstruction on spirometry, Acute exacerbation 11/17
- Clinically quite improved, switch back to Spiriva and Advair, discontinue nebulizer treatments, switch IV steroids to oral prednisone
- Patient will resume outpatient follow-up with [facility] pulmonary clinic, Dr. Mendoza
#7. Acute on chronic heart failure with reduced ejection fraction, LVEF 35%
- Cardiology service on case, improving pulmonary congestion, on IV diuresis currently
- Monitor input and output closely, monitor renal function
#8. Mild pulmonary HTN
- Suspect group 2 with underlying history of congestive heart failure in pulmonary artery pressure was 36 in July 2020
Other medical diagnoses:
Hypertension
Hyperlipidemia
DM type II
History of prostate cancer s/p radiation
History of VT s/p AICD 2007
CAD s/p CABG (1994)
Anemia
Chronic cough
Chronic systolic heart failure with diastolic dysfunction/ICM
Stable 3 mm nodule in left lung base
Chronic amiodarone therapy
PAD s/p bilateral common iliac artery stents 09/29/2018
Former tobacco smoker (1PPD x 15-20 years - quit 1994)
Centrilobular emphysema seen on imaging
Total time spent on this consultation/encounter _48___ minutes which includes review of history, physical exam, medications, laboratory data, personal review of imaging, extensive review of outpatient records, discussion with care team and
respiratory therapy.
Data:
CT abdomen/pelvis without contrast 11/12/2024:
1. Small amount of peritoneal ascites, new compared to prior CT dated 12/01/2023.
2. Nodular contour of the liver, suggestive of hepatic cirrhosis.
3. Liver is hyperattenuating relative to the spleen, which may be seen in the setting of hemachromatosis, Mando's disease, glycogen storage disease, or drug toxicity.
4. Splenomegaly.
5. Left pleural effusion, partially imaged. Right lower lobe consolidation, which may represent atelectasis or pneumonia.
CT Chest - Moderate loculated left pleural effusion. Moderate left lower lobe consolidation concerning for pneumonia. Moderate lingular consolidation concerning for pneumonia. Mild right lower lobe consolidation probably atelectasis. Tiny
right pleural effusion. Cardiomegaly. Moderate abdominopelvic ascites. Probable splenomegaly. Nodular hepatic margin suggesting cirrhosis
ECHO 11/12/24: 1. Severely dilated LV with moderately reduced systolic function.
2. LVEF is approximately 35% by Kearney's method of this. Inferior and anteroseptal hypokinesis.
3. Normal RV size and function.
4. Mild aortic stenosis.
5. Mild to moderate tricuspid regurgitation. Estimated PASP of 33 mmHg.
6. Compared to prior from July 21, 2020, there is new mild aortic stenosis.
Spirometry 11/16/24: FEV1 0.99L 33%, FVC 1.49L 37%, ratio 66. Post FEV1 1.06L 36%; + BD response in FVC (severe obstruction)
Subjective Data
-
Date of Service:
Date of Service: November 19, 2024
Chief Complaint: Pulmonary Follow Up
Subjective:
Patient comfortably lying in bed in no acute distress, saturating well on room air
Review of Systems
Genitourinary: Other (All 14 systems reviewed and negative except as stated above in the history of present illness.)
Objective Data
Data Reviewed
Vital Signs / I&O / Oxygen:
Vital Signs
Temp Pulse Resp BP Pulse Ox
97.7 F 61 18 113/99 97
11/19/24 07:23 11/19/24 08:43 11/19/24 07:33 11/19/24 08:43 11/19/24 07:33
Intake and Output
11/18/24 11/19/24 11/20/24
06:59 06:59 06:59
Intake Total 960 / 960 1020 / 1020
Output Total 2120 / 2120 2600 / 2600
Balance -1160 / -1160 -1580 / -1580
SaO2 97
Nasal Cannula flow liters per 2
minute
Physical Exam
General: Respiratory Distress (negative), Comfortable, Chills (negative), Sweats (negative) and Other (obese male in NAD)
HEENT: Normocephalic, Anicteric and Other (thick neck)
Cardiovascular: Peripheral Edema (Improving pedal edema) and Other (normal rate)
Respiratory: Wheeze (Significantly improved), Crackles (Improved air entry bilaterally no crackles), Rhonchi (Resolved) and Non-Labored Respirations
GI: Soft, Distended (abdominal distension with fluid in addition to obesity), Non Tender and Normal Bowel Sounds
Neurology: Awake, Alert, Tremors (negative) and Other (slow to respond to questions/flat affect)
Skin: Warm, Dry and Cyanosis (negative)
Labs/Micro/Reports
Lab Data
11/19/24 04:36
11/19/24 04:36
Microbiology
11/18/24 11:47 Pleural Fluid Body Fluid Culture - Preliminary
No Growth After 18-24 Hours
11/18/24 11:47 Pleural Fluid Gram Stain - Preliminary
11/15/24 10:25 Peritoneal Fluid Body Fluid Culture - Final
No Growth After 72 Hours
11/15/24 10:25 Peritoneal Fluid Gram Stain - Final
11/14/24 11:36 Sputum Respiratory Culture - Final
Pseudomonas aeruginosa
11/14/24 11:36 Sputum Gram Stain - Final
--- NOTE | 2024-11-19 08:59 | W.PN.UPDATE ---
Update Note
Progress Note Update
I saw and evaluated the patient. I reviewed the resident�s note and agree with findings and plan as documented in the resident�s note.
No new complaints.
Gen: remains NAD, Awake and alert
Eyes: EOMI, PERRLA, no scleral icterus.
Neck: supple.
CV: continues to remain RRR, +S1/S2, no m/r/g.
Resp: dec BS in the bases (L>R), faint rales L base
Abd: +BS, soft, NT to light palpation, obese abd, mod distention
Skin: No rashes. very trace LE edema
Neuro: CN 2-12 intact, non-focal.
Psych: Normal mood and affect.
11/18/24 11:47 Pleural Fluid Body Fluid Culture - Preliminary
No Growth After 18-24 Hours
11/18/24 11:47 Pleural Fluid Gram Stain - Preliminary
11/15/24 10:25 Peritoneal Fluid Body Fluid Culture - Final
No Growth After 72 Hours
11/15/24 10:25 Peritoneal Fluid Gram Stain - Final
11/14/24 11:36 Sputum Respiratory Culture - Final
Pseudomonas aeruginosa
11/14/24 11:36 Sputum Gram Stain - Final
11/15/24 15:44 Nose Nasal Screen MRSA (PCR) - Final
MRSA not detected - performed by PCR methodology.
11/12/24 04:54 Urine Urine Culture - Final
No Significant Growth
Echo: EF 35%. Severely dilated LV with moderately reduced systolic function. Mild to moderate tricuspid regurgitation; estimated PASP of [address] A/P 11/12/24:
1. Small amount of peritoneal ascites, new compared to prior CT dated 12/01/2023.
2. Nodular contour of the liver, suggestive of hepatic cirrhosis.
3. Liver is hyperattenuating relative to the spleen, which may be seen in the setting of hemochromatosis, Mando's disease, glycogen storage disease, or drug toxicity.
4. Splenomegaly.
5. Left pleural effusion, partially imaged. Left lower lobe consolidation, which may represent atelectasis or pneumonia.
CXR 11/12/24: Moderate left pleural effusion. Cardiomegaly.
CT chest 11/14/24: Moderate loculated left pleural effusion. Moderate left lower lobe consolidation concerning for pneumonia. Moderate lingular consolidation concerning for pneumonia. Mild right lower lobe consolidation probably atelectasis. Tiny
right pleural effusion. Cardiomegaly. Moderate abdominopelvic ascites. Probable splenomegaly. Nodular hepatic margin suggesting cirrhosis. If the patient has emphysema, patient should be assessed for an annual low dose lung cancer CT program, as
pulmonary emphysema is an independent risk factor for lung cancer.
CT A/P (PO contrast): Stable findings in the abdomen and pelvis. Small right and moderate left pleural effusions with associated probable left lower lobe pneumonia, slightly progressed.
CXR: Stable moderate left pleural effusion with associated atelectases and/or pneumonia.
Acute GIB:
-p/w'd BRBPR (likely LGIB)
-Plavix contributed to GI bleeding and has been on hold since admission
-11/17/24AM pt with BRBPR, LLQ abd pain, and transient hypotension. CT A/P with PO contrast only (MARIA DOLORES/CKD) unremarkable as above.
-holding ASA
-Hb stable
-s/p flex sig 11/18/24: Preparation of the colon was poor. Multiple colonic angioectasias. Treated with APC. Stool in the rectum, at the anus and in the sigmoid colon. Exam to 30cm. No specimens collected.
Acute hypoxemic respiratory failure due to acute on chronic HFrEF and, now, L-sided PNA:
-all imaging above (CXR on admission, CT A/P on admission, echo, CT chest)
-proBNP 2670
-s/p IV Lasix (dosing had been on a daily basis), now on Lasix 80mg IV BID (started 11/15/24AM)
-daily wts, I/Os
-holding Entresto and Aldactone as above
-Coreg stopped due to hypotension, now restarted
-cards following
-Patient afebrile and without leukocytosis. On admission imaging findings regarding the left lower lobe consolidation were felt to be due to atelectasis.
-CT chest above. With findings concerning for left lower lobe pneumonia and sputum Cx with pseudomonas, broad spectrum abx started 11/15/24, now on Cefepime as per ID
-s/p L-thoracentesis 11/18 for 1.45L, transudative
Cirrhosis:
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
-GI following
-cont Lactulose/Rifaximin
-s/p Dx/Tx paracentesis 11/15 for 2L, SAAG > 1.1
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
-STAFF RN baseline Cr was 1.8
-likely due to CRS as well as meds including Entresto and Aldactone which are on hold
-renal following
-Cr has overall improved, now 2.3
Other problems:
Pancytopenia, now leukopenia has resolved
CAD s/p stent and CABG: cont BB/ASA
h/o VT s/p ICD: cont Amio
Pulm HTN
Hyponatremia, mild
Hyperkalemia, resolved
HLD: currently on statin which will be stopped if transaminases worsen
Acute transaminitis, likely due to volume O/L
Thrombocytopenia, trend (currently stable)
h/o prostate CA s/p XRT
PAD: cont ASA
LBBB
Obesity due to excess calories
FULL/SCDs (LGIB and thrombocytopenia), encourage ambulation
[2024-11-19] MEDS: SPIRIVA RESPIMAT 2.5 MCG INH (09:22)
--- NOTE | 2024-11-19 09:23 | PTCARENOTE ---
Rounds completed.
Downgraded to IMU.
POCUS --> Mild/moderate fluid in abdomen per collator operator --> potential tap friday prior to D/C.
--- NOTE | 2024-11-19 09:33 | W.PN.ID1 ---
Date of Service
Date of Service: November 19, 2024
Today's Communication
Continue antibiotics.
Assessment / Plan
Pulmonary infiltrate
Pleural effusion
- s/p thoracentesis
Sputum culture with Pseudomonas aeruginosa
Lower GI bleed
- S/p sigmoidoscopy and cauterization
Renal insufficiency
CHF (EF ~ 35%)
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
Ascites; s/p recent paracentesis for 2L
DM
HLD
HTN
CAD; Hx UT
PAD
Hx prostate CA
V. tach
CHF with depressed EF
COPD
Recommendations:
White count normal. Patient remains afebrile.
Sputum culture with Pseudomonas, although difficult to differentiate colonizer versus true pathogen. Sputum with only moderate WBCs.
Continue with cefepime (d#5) for another 2 days then d/c abx and observe.
Continue with Acapella device, along with incentive spirometry.
Monitor white count and temperature curve.
����������������������������������������������������������
Chief Complaint
-: Pneumonia and Other (GI bleed)
Subjective / Review of Systems
Patient seen and examined. Reports feeling improved. Still with mild cough, but little to no sputum production. Underwent sigmoidoscopy yesterday with finding of small bleeds. Additionally underwent thoracentesis yesterday with recovery of 1400
cc fluid.
Review of Systems: No Fever and No Chills
Vital Signs / Physical Exam
Vital Signs
Vital Signs
Temp Pulse Resp BP Pulse Ox
97.7 F 67 16 115/62 97
11/19/24 07:23 11/19/24 09:00 11/19/24 09:00 11/19/24 09:00 11/19/24 09:20
Physical Exam
Constitutional: No Acute Distress, Comfortable, Non-toxic and Obese
Eyes: Sclera Anicteric
Cardiovascular: Regular Rate and S1/S2; Negative S3/S4
Pulmonary: Wheezes (Mild; scattered), Coarse and Non Labored
Gastrointestinal: Soft, Non Tender, Distended, Normal Bowel Sounds and No Rebound
Extremities: Edema; Negative Cyanosis or Erythema
Skin: Warm and Dry; Negative Rash or Jaundice
Neurological: Awake and Alert
Psychological: Calm
Objective Data
Lab Data
Lab Results
11/19/24 04:36
11/19/24 04:36
PT 17.7 Sec (11.4-14.6) H 11/17/24 12:34
INR 1.41 11/17/24 12:34
APTT 34.5 Sec (23.4-35.0) 11/17/24 12:34
Estimated Creat Clear 32 ml/min 11/19/24 04:36
Lactic Acid 0.9 mmol/L (0.7-2.0) 11/17/24 12:34
Total Bilirubin 2.1 mg/dl (0.2-1.3) H 11/19/24 04:36
AST 266 U/L (17-59) H 11/19/24 04:36
ALT 243 U/L (0-50) H 11/19/24 04:36
Alkaline Phosphatase 101 U/L (38-126) 11/19/24 04:36
Most recent labs reviewed.
Micro Results:
11/18/24 11:47 Body Fluid Culture - Preliminary
Pleural Fluid No Growth After 18-24 Hours
Gram Stain - Preliminary
11/18/24 11:47 Body Fluid Culture - Pending
Pleural Fluid Gram Stain - Pending
11/15/24 10:25 Body Fluid Culture - Final
Peritoneal Fluid No Growth After 72 Hours
Gram Stain - Final
11/14/24 11:36 Respiratory Culture - Final
Sputum Pseudomonas aeruginosa
Gram Stain - Final
11/15/24 15:44 Nasal Screen MRSA (PCR) - Final
Nose MRSA not detected - performed by PCR methodology.
11/12/24 04:54 Urine Culture - Final
Urine No Significant Growth
Respiratory Culture Final 11/14/24
Few Pseudomonas aeruginosa
Few Usual Respiratory Daria
Organism 1 Pseudomonas aeruginosa
1. Pseudomonas aeruginosa
M.I.C. RX
--------- ---
Aztreonam <=4 S
Cefepime <=2 S
Ceftazidime 4 S
Ciprofloxacin <=0.25 S
Meropenem <=1 S
Piperacillin/Tazobactam <=8 S
Tobramycin <=2 S
Imaging:
11/14/2024 CT chest without IV contrast: moderate loculated left pleural effusion noted. Moderate left lower lobe consolidation concerning for pneumonia. Moderate lingular consolidation also concerning for pneumonia. Mild right lower lobe
consolidation likely atelectasis. Small right pleural effusion noted. Cardiomegaly noted. Please see full dictation for additional detail.
11/12/2024 ECHO (TTE): Severely dilated LV with moderately reduced systolic function. LVEF approximately 35%. Mild aortic stenosis. Mild to moderate tricuspid regurgitation.
Care Review
Plan reviewed with: Physician (Critical Care)
--- NOTE | 2024-11-19 10:21 | W.PN.NEPH.PH ---
Today's Communication / Plan
-
Continue diuretics
Assessment/Plan
-
Assessment
MARIA DOLORES (B/L cr 1.9 dating back 2021)
hyponatremia
Anemia
PNA
pancytopenia
HFrEF 35% with Moderate TR
SOB
cirrhosis
left pleural effusion
mild ascites
Plan
abx continues
Holding Entresto, Aldactone
Status post left thoracentesis 11/03/2024 , repeat thoracentesis 11/18
s/p para 2L 11/15
Continue diuresis with Lasix IV 80mg BID
Status post: Colonoscopy reviewed
Creatinine stable 2.3, -1.5 L.
Weight down 1.6 kg

33 minutes critical care time
-
-
Date of Service: November 19, 2024
CC / HPI / ROS
-
Chief Complaint:
MARIA DOLORES
History of Present Illness:
Na stable 133
MARIA DOLORES/Cr down to 2.2
BP stable low
diuresing well with IV lasix
hgb stable
Review of Systems:
no CP/SOB
Labs
-
Labs:
WBC 9.1 10^3/uL (4.8-10.8) 11/19/24 04:36
RBC 2.72 10^6/uL (4.70-6.10) L 11/19/24 04:36
Hgb 8.9 g/dL (13.0-18.0) L 11/19/24 04:36
Hct 27.1 % (39.0-52.0) L 11/19/24 04:36
Plt Count 96 10^3/uL (130-400) L D 11/19/24 04:36
Sodium 134 mmol/L (135-145) L 11/19/24 04:36
Potassium 4.3 mmol/L (3.5-5.1) 11/19/24 04:36
Chloride 103 mmol/L (98-107) 11/19/24 04:36
Carbon Dioxide 24 mmol/L (22-30) 11/19/24 04:36
BUN 72 mg/dl (9-20) H 11/19/24 04:36
Creatinine 2.3 mg/dL (0.7-1.3) H 11/19/24 04:36
eGFR 28.71 11/19/24 04:36
Glucose 105 mg/dl (70-99) H 11/19/24 04:36
Calcium 8.4 mg/dl (8.4-10.2) 11/19/24 04:36
Uvb-M-Uoojemynmuu Pept 2670 pg/ml 11/12/24 11:29
Albumin 3.3 g/dl (3.5-5.0) L 11/19/24 04:36
Physical Exam
-
Vital Signs:
Vital Signs
Temp Pulse Resp BP Pulse Ox
97.7 F 67 16 115/62 97
11/19/24 07:23 11/19/24 09:00 11/19/24 09:00 11/19/24 09:00 11/19/24 09:20
Cardiovascular:: Regular rate and rhythm
Respiratory:: Bilateral: CTA
Lung Excursion:: Normal
Abdomen:: Nontender and Soft
Bowel Sounds:: Normal
Extremity Edema:: +2: Bilateral:
[2024-11-19 11:54] LABS: Glucose - Point of Care 292 mg/dl (70-99)
[2024-11-19 11:55] LABS: Glucose - Point of Care 325 mg/dl (70-99)
[2024-11-19] MEDS: NOVOLOG FLEXPEN-MODERATE RESISTANCE 7 UNITS SC (11:55)
--- NOTE | 2024-11-19 12:29 | W.PN.GI.CBS2 ---
Today's Communication / Plan
-
regular diet
Assessment / Plan
-
Pt hx of radiation proctitis, s/p APC with no more bleeding and stable hgb
- no further treatment
- explained to patient and family if rebleeds could retreat
will sign off call with questions
did d/w Dr. Ambrose
Subjective
Subjective
Date of Service: November 19, 2024
pt s/p APC of radiation proctitis yesterday. No bleeding or abdominal pain. Eating.
Objective
Data Reviewed
Laboratory Data:
Laboratory Results
11/19/24 04:36
11/19/24 04:36
Laboratory Results
PT 17.7 Sec (11.4-14.6) H 11/17/24 12:34
INR 1.41 11/17/24 12:34
APTT 34.5 Sec (23.4-35.0) 11/17/24 12:34
Magnesium 2.4 mg/dl (1.6-2.3) H 11/18/24 02:40
Total Bilirubin 2.1 mg/dl (0.2-1.3) H 11/19/24 04:36
AST 266 U/L (17-59) H 11/19/24 04:36
ALT 243 U/L (0-50) H 11/19/24 04:36
Alkaline Phosphatase 101 U/L (38-126) 11/19/24 04:36
Lipase 616 U/L (23-300) H 11/12/24 00:04
Vital Signs and I&O:
Vital Signs
Temp Pulse Resp BP Pulse Ox
98 F 60 17 97/49 97
11/19/24 11:00 11/19/24 11:00 11/19/24 11:00 11/19/24 11:00 11/19/24 09:20
I&O
0911/19/24 11/20/24
06:59 06:59 06:59
Intake Total 960 / 960 1020 / 1020 300 / 300
Output Total 2120 / 2120 2600 / 2600 600 / 600
Balance -1160 / -1160 -1580 / -1580 -300 / -300
Physical Exam
Physical Exam
HEENT: Anicteric
GI: Non Distended
Neuro: Non Focal
--- NOTE | 2024-11-19 14:28 | CM ---
No rectal bleeding, stable HGB @ 8.9,IV/Cefepime and IV/Lasix, Thoracentesis on 11/18/24 1.45 L fluid. [facility]charge POC[facility], PT/OT. referral placed.
[2024-11-19 15:55] LABS: Glucose - Point of Care 263 mg/dl (70-99)
--- NOTE | 2024-11-19 15:56 | PTCARENOTE ---
Hosp. med doc notified of high POC checks prior to meals.
[2024-11-19] MEDS: NOVOLOG FLEXPEN-MODERATE RESISTANCE 5 UNITS SC (16:24)
[2024-11-19] MEDS: NOVOLOG FLEXPEN 5 UNITS SC (16:24)
[2024-11-19] MEDS: ADVAIR HFA 230/21 MCG INHALER 2 PUFF INH (20:02)
[2024-11-19 21:03] LABS: Glucose - Point of Care 152 mg/dl (70-99)
[2024-11-20] VITALS (8 sets, daily range): BP systolic 92–106; BP diastolic 42–62; PULSE 60; O2SAT 95; BMI 31.5
[2024-11-20 04:35] LABS: ALT (SGPT) 211 U/L (0-50); AST (SGOT) 171 U/L (17-59); Albumin 3.0 g/dl (3.5-5.0); Alkaline Phosphatase 125 U/L (38-126); Blood Urea Nitrogen 83 mg/dl (9-20); Calcium 8.3 mg/dl (8.4-10.2); Carbon Dioxide 24 mmol/L (22-30); Chloride 103 mmol/L (98-107); Estimated Creatinine Clearance 30 ml/min; Glucose 109 mg/dl (70-99); Potassium 4.2 mmol/L (3.5-5.1); Sodium 133 mmol/L (135-145); Total Protein 6.1 g/dl (6.3-8.2); eGFR 25.98
[2024-11-20 04:42] LABS: Hematocrit 26.9 % (39.0-52.0); Hemoglobin 8.4 g/dL (13.0-18.0); Mean Corp Hgb Conc. 31.2 g/dL (33.0-37.0); Mean Corpuscular Volume 102.7 fL (80.0-94.0); Platelet Count 76 10^3/uL (130-400); Red Cell Dist. Width 16.3 % (11.5-14.5)
--- NOTE | 2024-11-20 06:13 | PTCARENOTE ---
Pt Aox3, VSS, AVPACED on monitor, Pitting edema to lower extremities. OOB to bathroom PRN. urinal at bedside. offers no complaints.
[2024-11-20] MEDS: MAXIPIME 1000 MG IV ×3 (06:25→22:09)
[2024-11-20] MEDS: STERILE WATER FOR INJECTION 10 ML IV ×3 (06:26→22:09)
--- NOTE | 2024-11-20 06:52 | W.PN.CD ---
Addendum entered and electronically signed by Jah Batista MD 11/20/24 07:15:
Additional discussion with patient and further review of records regarding history of VT. Patient had a prior history of VTE and ICD and was maintained on amiodarone 200 mg a day. In 2020 he presented with ICD shocks x 4. He underwent cardiac
catheterization without intervention and ultimately amiodarone was increased to 400 mg a day. Patient thinks he was on 400 mg a day at home. But then he stated his knows more the details. Patient currently being maintained on 200. Will
verify outpatient dosing with .. Complex issues considering importance of antiarrhythmic therapy in this patient with prior history of VT and concern regarding patient's underlying liver disease.
Original Note:
Today's Communication / Plan
-
hemoglobin 8.4 continue to monitor
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
- hold ASA 81mg. and monitor for re-bleeding for. Resume aspirin as soon as safe from GI stand
. Weight 99.5. Weight on presentation in 102.8 kg (the initial reading of 106 kg likely inaccurate)
- Patient still with edema but creatinine trending up. May need to reduce diuretic dosing. will await addtional input from nephrolgy
Impression / Plan
-
I/P: 74M with ventricular tachycardia (on amiodarone, Medtronic ICD), coronary artery disease status post bypass, HFrEF, hypertension, hypercholesterolemia, PAD, cirrhosis of the liver, type 2 diabetes mellitus, and prior prostate cancer presented
to the emergency department with a chief complaint of BRBPR.
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
HFrEF, acute on chronic, severe requiring hospitalization
Ischemic cardiomyopathy, EF 35%
- Dry weight thought to be approx 100 kg, diuresis directed by nephrology as he presented with MARIA DOLORES -this requires intensive monitoring--suspect his dry weight is lower than this
- GDMT as tolerated:
-KYLER/ARB/ARNI: Entresto on hold with MARIA DOLORES
-SGLT2 inhibitor: None with MARIA DOLORES
-Aldosterone agonist: Spironolactone on hold with MARIA DOLORES
-Beta hemant: Carvedilol 6.25 mg BID (recently lowered) resumed 11/19
-Isosorbide/Hydralazine:�Not started due to low BP
-ICD: Implanted (Medtronic)
-continue lasix 80mg IV bid with nephrology managing as well.
Rectal bleeding acute noted 11/17/2024.
-Hemoglobin of now 8.4 low, INR 11/17/2024 1
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
- hold ASA 81mg. and monitor for re-bleeding for. Resume aspirin as soon as safe from GI stand
Pleural effusion, left
- Moderate on CXR in ER, limited target for thoracentesis by ultrasound
- Status post left thoracentesis 11/03/2024 for 1100 mL - transudative by lights
- Additional thoracentesis been directed by primary team
Cirrhosis, with ascites
- Status post paracentesis for 2 L 11/15/2024
- GI following
MARIA DOLORES
- BUN 35, creatinine 1.9 in August
- 3.0 on admission now 3.0 down to 2.2 and then trending upward towards 2.5
-
Pseudomonas, on sputum culture, ID following
Thrombocytopenia, chronic
- H/H ~12/31 & Plt 109 while he was in [facility]
- DAPT on hold, after evaluation by GI, cardiology is okay with single agent once stable (ASA 81mg daily): currently on hold with active rectal bleeding
- Platelets 67.
CAD, s/p CABG
- Stable without chest pain
- Cardiac PET last month consistent with inferior and apical scar. No reversible defects.
- Continue statin; aspirin held
Ventricular tachycardia
- None on tele
- Continue amiodarone and carvedilol
- s/p Medtronic ICD
- Patient remains on amiodarone. Will need to review with GI and patient who is reported to have underlying liver disease. Accurate patient does see liver specialist Dr. Butt as outpatient. Also will need additional input from primary
physically impaired teacher regarding use of amiodarone prior history of ventricular tachycardia. VT history makes changing amiodarone more complex risks risk-benefit.
Mild , mild/moderate TR, outpatient follow up
Type 2 diabetes mellitus, per primary service
Cirrhosis of the liver, follows with Dr. Butt
PAD, follows with Dr. Orr L femoral endarterectomy (2019), chronically occluded superficial femoral arteries bilaterally
Carotid artery stenosis, high-grade, >90% bilaterally, followed by Vascular
[facility]
Physical Exam
Vital Signs/Labs
Vital Signs
Temp Pulse Resp BP Pulse Ox
97.9 F 60 13 106/62 95
11/20/24 03:53 11/20/24 06:00 11/20/24 06:00 11/20/24 01:40 11/20/24 06:00
11/18/24 11/19/24 11/20/24
06:59 06:59 06:59
Actual Weight 101.6 kg 100 kg 99.5 kg
11/20/24 03:38
11/20/24 03:38
PT 17.7 Sec (11.4-14.6) H 11/17/24 12:34
INR 1.41 11/17/24 12:34
APTT 34.5 Sec (23.4-35.0) 11/17/24 12:34
Magnesium 2.4 mg/dl (1.6-2.3) H 11/18/24 02:40
11/12/24
11:29
Owe-O-Rjruwfwursk Pept 2670
Physical Exam
Constitutional: No acute distress
Cardiovascular: Rhythm & rate is regular
Respiratory: Lungs clear to auscul.
GI: Soft and Non tender
Neuro/Psych: Alert
Other: Other (mild edema lower legs als some edema in thighs)
Data Reviewed
-
Date of Service: November 20, 2024
Medical Decision Making: Reviewed Test Results
Medical Tests (PFT, Pathology etc): Report Reviewed by me
Labs: Labs Reviewed by me
[2024-11-20] MEDS: LASIX IV (07:39)
--- NOTE | 2024-11-20 07:52 | W.PN.PUL3 ---
Today's Communication / Plan
-
- Continue Spiriva, Advair and prednisone as ordered
- Incentive spirometry, increase activity as tolerated
Assessment
-
74-year-old male with a past medical history of hypertension, hyperlipidemia, chronic cough, DM type II, history of prostate cancer, history of VT s/p AICD (02/2008), CAD s/p CABG (1994) + coronary stent, chronic systolic heart failure with
diastolic dysfunction, ICM, chronic amiodarone therapy and PAD s/p bilateral common iliac artery stents who presents with rectal bleeding and weakness for 1 week. Patient reported that he started clots as well. Initially in the ER he was afebrile
with pulse rate 76, respiratory rate 17, BP 90/53, and saturating 96% on room air.. Initial labs pertinent for Hb 8.9, platelet count 98, sodium 130, potassium 5.3, creatinine 3.0, lipase 616, and urinalysis slightly cloudy with moderate bacteria.
Urine culture was collected. CXR showed a moderate left-sided pleural effusion. Of note he recently had a thoracentesis on 11/03/2024 where IR removed 1100 cc of serosanguineous transudative pleural fluid. He was started on a PPI in the ER and
admitted to the IMU for further care.. Cardiology was consulted given his history of CHF. Diuresis was started and GI was also consulted as he has ascites. He does have a [employer] admin, Dr. Butt, that he was told to follow-up for in the future
for an endoscopy. On 11/13, patient was short of breath and was found to be wheezing. Pulmonary service now consulted for additional management/recommendations.
11/17, patient developed brief hypotension after hematochezia and was transferred to ICU. In the ICU patient had stable hemoglobin and had another episode of hematochezia, small-volume. In view of COPD exacerbation and orthopnea he was treated
with steroids, bronchodilators and subsequently had a left-sided thoracentesis performed with 1450 mL of transudative fluid removed. Postprocedure respiratory status improved, he subsequently had a flexible sigmoidoscopy performed showing areas of
ectasia suspicious for radiation proctitis and received cautery. 11/19, patient was transferred to IMU.
#1. Hematochezia, recurrent with transient hypotension
- Patient initially presented with hematochezia. Plavix has been on hold since and continuing on aspirin, recurrent episodes on 11/17 with transient hypotension
- Patient transferred to ICU for transient hypotension and bright red blood per rectum. Currently hemodynamically stable. No Further episodes since
- Continue to hold aspirin and Plavix. Coagulation panel normal, off Levophed now. Plan to resume aspirin once cleared by GI service
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
#2. Decompensated cirrhosis
-Asterixis on admission, hepatic encephalopathy. Improved since he has been on lactulose and rifaximin, continue. Normal ammonia. Patient at risk of worsening encephalopathy with GI bleed. Monitor closely for any mental status changes in the
critical care unit.
-Ascites and left pleural effusion. Status post paracentesis (11/15) and thoracentesis(11/03), suggestive of transudative fluid, related to decompensated cirrhosis. Fluid studies not suggestive of SBP.
-Repeat Thoracentesis in ICU 11/18, fluid removed 1450 ml, transudative
-Coagulopathy with mild thrombocytopenia. Stable
-Mild hyponatremia. Nephrology service on case, stable
#3. Acute kidney injury with suspect underlying chronic kidney disease.
-Nephrology service on case, currently Entresto and spironolactone have been on hold. Receiving IV Lasix
-Avoid hypotension, pressors as needed to keep MAP above 65, monitor urine output closely
-At risk of hepatorenal syndrome with underlying decompensated cirrhosis.
-SBP ruled out
- Creatinine slightly worse today, await further nephrology recommendations
#4. Left sided pleural effusion
- Thoracentesis #1, 11/03, 1100 ml fluid removed, Transudative on fluid analysis. Suspect related to underlying cirrhosis
- Thoracentesis #2, 11/18, 1450 ml fluid removed, Transudative, cultures have stayed negative
#5. Left lower lobe pneumonia versus compressive atelectasis due to effusion
- Pseudomonas noted on sputum cultures, unclear if true pathogen versus colonizer. ID service on case, continue antibiotics per ID service
- Pleural fluid transudative not suggestive of empyema or parapneumonic effusion.
#6. COPD with severe obstruction on spirometry, Acute exacerbation 11/17
- Clinically quite improved, switched back to Spiriva and Advair, discontinue nebulizer treatments, switched IV steroids to oral prednisone
- Patient will resume outpatient follow-up with [facility] pulmonary clinic, Dr. Mendoza
#7. Acute on chronic heart failure with reduced ejection fraction, LVEF 35%
- Cardiology service on case, improving pulmonary congestion, on IV diuresis currently
- Monitor input and output closely, monitor renal function
#8. Mild pulmonary HTN
- Suspect group 2 with underlying history of congestive heart failure in pulmonary artery pressure was 36 in July 2020
Other medical diagnoses:
Hypertension
Hyperlipidemia
DM type II
History of prostate cancer s/p radiation
History of VT s/p AICD 2007
CAD s/p CABG (1994)
Anemia
Chronic cough
Chronic systolic heart failure with diastolic dysfunction/ICM
Stable 3 mm nodule in left lung base
Chronic amiodarone therapy
PAD s/p bilateral common iliac artery stents 09/29/2018
Former tobacco smoker (1PPD x 15-20 years - quit 1994)
Centrilobular emphysema seen on imaging
Total time spent on this consultation/encounter _42___ minutes which includes review of history, physical exam, medications, laboratory data, personal review of imaging, extensive review of outpatient records, discussion with care team and
respiratory therapy.
Data:
CT abdomen/pelvis without contrast 11/12/2024:
1. Small amount of peritoneal ascites, new compared to prior CT dated 12/01/2023.
2. Nodular contour of the liver, suggestive of hepatic cirrhosis.
3. Liver is hyperattenuating relative to the spleen, which may be seen in the setting of hemachromatosis, Mando's disease, glycogen storage disease, or drug toxicity.
4. Splenomegaly.
5. Left pleural effusion, partially imaged. Right lower lobe consolidation, which may represent atelectasis or pneumonia.
CT Chest - Moderate loculated left pleural effusion. Moderate left lower lobe consolidation concerning for pneumonia. Moderate lingular consolidation concerning for pneumonia. Mild right lower lobe consolidation probably atelectasis. Tiny
right pleural effusion. Cardiomegaly. Moderate abdominopelvic ascites. Probable splenomegaly. Nodular hepatic margin suggesting cirrhosis
ECHO 11/12/24: 1. Severely dilated LV with moderately reduced systolic function.
2. LVEF is approximately 35% by Kearney's method of this. Inferior and anteroseptal hypokinesis.
3. Normal RV size and function.
4. Mild aortic stenosis.
5. Mild to moderate tricuspid regurgitation. Estimated PASP of 33 mmHg.
6. Compared to prior from July 21, 2020, there is new mild aortic stenosis.
Spirometry 11/16/24: FEV1 0.99L 33%, FVC 1.49L 37%, ratio 66. Post FEV1 1.06L 36%; + BD response in FVC (severe obstruction)
Subjective Data
-
Date of Service:
Date of Service: November 20, 2024
Chief Complaint: Pulmonary Follow Up
Subjective:
Patient comfortably lying in bed in no acute distress. Improving from respiratory standpoint.
Review of Systems
Genitourinary: Other (All 14 systems reviewed and negative except as stated above in the history of present illness.)
Objective Data
Data Reviewed
Vital Signs / I&O / Oxygen:
Vital Signs
Temp Pulse Resp BP Pulse Ox
97.9 F 60 13 106/62 95
11/20/24 03:53 11/20/24 06:00 11/20/24 06:00 11/20/24 01:40 11/20/24 06:00
Intake and Output
11/19/24 11/20/24 11/21/24
06:59 06:59 06:59
Intake Total 1020 / 1020 300 / 300
Output Total 2600 / 2600 1974
Balance -1580 / -1580 -1675 / -1675
SaO2 95
Nasal Cannula flow liters per 2
minute
Physical Exam
General: Respiratory Distress (negative), Comfortable, Chills (negative), Sweats (negative) and Other (obese male in NAD)
HEENT: Normocephalic, Anicteric and Other (thick neck)
Cardiovascular: Peripheral Edema (Unchanged pedal edema) and Other (normal rate)
Respiratory: Wheeze (Significantly improved), Crackles (Improved air entry bilaterally no crackles), Rhonchi (Resolved) and Non-Labored Respirations
GI: Soft, Distended (abdominal distension with fluid in addition to obesity), Non Tender and Normal Bowel Sounds
Neurology: Awake, Alert, Tremors (negative) and Other (slow to respond to questions/flat affect)
Skin: Warm, Dry and Cyanosis (negative)
Labs/Micro/Reports
Lab Data
11/20/24 03:38
11/20/24 03:38
Microbiology
11/18/24 11:47 Pleural Fluid Body Fluid Culture - Preliminary
NO GROWTH
11/18/24 11:47 Pleural Fluid Gram Stain - Final
11/18/24 11:47 Pleural Fluid Body Fluid Culture - Preliminary
No Growth After 18-24 Hours
11/18/24 11:47 Pleural Fluid Gram Stain - Preliminary
11/15/24 10:25 Peritoneal Fluid Body Fluid Culture - Final
No Growth After 72 Hours
11/15/24 10:25 Peritoneal Fluid Gram Stain - Final
[2024-11-20] MEDS: SPIRIVA RESPIMAT 2.5 MCG 2 PUFF INH (07:58)
[2024-11-20] MEDS: ADVAIR HFA 230/21 MCG INHALER 2 PUFF INH ×2 (07:59→19:40)
--- NOTE | 2024-11-20 08:05 | W.PN.ID1 ---
Date of Service
Date of Service: November 20, 2024
Today's Communication
Continue antibiotics through tomorrow then discontinue.
Assessment / Plan
Pulmonary infiltrate
Pleural effusion
- s/p thoracentesis
Sputum culture with Pseudomonas aeruginosa
Lower GI bleed
- S/p sigmoidoscopy and cauterization
Renal insufficiency
CHF (EF ~ 35%)
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
Ascites; s/p recent paracentesis for 2L
DM
HLD
HTN
CAD; Hx AR
PAD
Hx prostate CA
V. tach
CHF with depressed EF
COPD
Recommendations:
White count normal. Patient remains afebrile.
Sputum culture with Pseudomonas, although difficult to differentiate colonizer versus true pathogen. Sputum with only moderate WBCs.
Continue with cefepime (d#6) for another day then d/c abx and observe.
Continue with Acapella device, along with incentive spirometry.
Monitor white count and temperature curve.
����������������������������������������������������������
Chief Complaint
-: Pneumonia and Other (GI bleed)
Subjective / Review of Systems
Review of Systems: No Fever, No Chills, Cough (Improved), Sputum Production (Scant) and No Chest Pain
Vital Signs / Physical Exam
Vital Signs
Vital Signs
Temp Pulse Resp BP Pulse Ox
97.9 F 60 13 106/62 95
11/20/24 03:53 11/20/24 06:00 11/20/24 06:00 11/20/24 01:40 11/20/24 06:00
Physical Exam
Constitutional: No Acute Distress, Comfortable, Non-toxic and Obese
Eyes: Sclera Anicteric
Cardiovascular: Regular Rate and S1/S2; Negative S3/S4
Pulmonary: Wheezes (Mild; scattered), Coarse and Non Labored
Gastrointestinal: Soft, Non Tender, Distended, Normal Bowel Sounds and No Rebound
Extremities: Edema; Negative Cyanosis or Erythema
Skin: Warm and Dry; Negative Rash or Jaundice
Neurological: Awake and Alert
Psychological: Calm
Objective Data
Lab Data
Lab Results
11/20/24 03:38
11/20/24 03:38
PT 17.7 Sec (11.4-14.6) H 11/17/24 12:34
INR 1.41 11/17/24 12:34
APTT 34.5 Sec (23.4-35.0) 11/17/24 12:34
Estimated Creat Clear 30 ml/min 11/20/24 03:38
Lactic Acid 0.9 mmol/L (0.7-2.0) 11/17/24 12:34
Total Bilirubin 1.8 mg/dl (0.2-1.3) H 11/20/24 03:38
AST 171 U/L (17-59) H 11/20/24 03:38
ALT 211 U/L (0-50) H 11/20/24 03:38
Alkaline Phosphatase 125 U/L (38-126) 11/20/24 03:38
Most recent labs reviewed.
Micro Results:
11/18/24 11:47 Body Fluid Culture - Preliminary
Pleural Fluid NO GROWTH
Gram Stain - Final
11/18/24 11:47 Body Fluid Culture - Preliminary
Pleural Fluid No Growth After 18-24 Hours
Gram Stain - Preliminary
11/15/24 10:25 Body Fluid Culture - Final
Peritoneal Fluid No Growth After 72 Hours
Gram Stain - Final
11/14/24 11:36 Respiratory Culture - Final
Sputum Pseudomonas aeruginosa
Gram Stain - Final
11/15/24 15:44 Nasal Screen MRSA (PCR) - Final
Nose MRSA not detected - performed by PCR methodology.
11/12/24 04:54 Urine Culture - Final
Urine No Significant Growth
Respiratory Culture Final 11/14/24
Few Pseudomonas aeruginosa
Few Usual Respiratory Daria
Organism 1 Pseudomonas aeruginosa
1. Pseudomonas aeruginosa
M.I.C. RX
--------- ---
Aztreonam <=4 S
Cefepime <=2 S
Ceftazidime 4 S
Ciprofloxacin <=0.25 S
Meropenem <=1 S
Piperacillin/Tazobactam <=8 S
Tobramycin <=2 S
Imaging:
11/14/2024 CT chest without IV contrast: moderate loculated left pleural effusion noted. Moderate left lower lobe consolidation concerning for pneumonia. Moderate lingular consolidation also concerning for pneumonia. Mild right lower lobe
consolidation likely atelectasis. Small right pleural effusion noted. Cardiomegaly noted. Please see full dictation for additional detail.
11/12/2024 ECHO (TTE): Severely dilated LV with moderately reduced systolic function. LVEF approximately 35%. Mild aortic stenosis. Mild to moderate tricuspid regurgitation.
Care Review
Plan reviewed with: Physician (Critical Care)
[2024-11-20] MEDS: NOVOLOG FLEXPEN-MODERATE RESISTANCE SC (08:29)
[2024-11-20] MEDS: NOVOLOG FLEXPEN 5 UNITS SC ×3 (08:29→17:01)
[2024-11-20] MEDS: DUPHALAC/CHRONULAC 20 GRAMS PO ×2 (08:30→19:39)
[2024-11-20] MEDS: COREG 6.25 MG PO ×2 (08:30→19:37)
[2024-11-20] MEDS: NSS (PRESERVATIVE FREE) 10 ML IV ×2 (08:30→19:46)
[2024-11-20] MEDS: DELTASONE 30 MG PO (08:30)
[2024-11-20] MEDS: PACERONE 200 MG PO (08:30)
[2024-11-20] MEDS: PROTONIX IV 40 MG IV ×2 (08:30→19:40)
[2024-11-20] MEDS: XIFAXAN 550 MG PO ×2 (08:30→19:39)
[2024-11-20] MEDS: MUCINEX 600 MG PO ×2 (08:30→19:37)
[2024-11-20 08:35] LABS: Glucose - Point of Care 110 mg/dl (70-99)
[2024-11-20 09:13] LABS: Glycohemoglobin (HgbA1c) 5.6 % (4.0-5.6)
[2024-11-20 11:56] LABS: Glucose - Point of Care 189 mg/dl (70-99)
[2024-11-20] MEDS: NOVOLOG FLEXPEN-MODERATE RESISTANCE 1 UNITS SC ×2 (12:45→17:01)
--- NOTE | 2024-11-20 15:30 | W.PN.HOSP.TC ---
Addendum entered and electronically signed by Lissa Childress MD 11/20/24 16:46:
I saw and evaluated the patient independently. I reviewed the resident�s note and agree with findings and plan as documented by Dr. Devlin.
GENERAL: well developed, well nourished, male in no apparent distress
HEENT: NC/AT--no NC O2
HEART: regular rate and rhythm, +S1, +S2
LUNGS : decreased breath sounds bilaterally
ABDOM: soft, nontender, nondistended, + bowel sounds, + fluid wave
EXT: no cyanosis, clubbing-- has 2+ pitting edema to bilateral LE edema
NEUROLOGIC: grossly intact
Acute GIB--presented with BRBPR--likely lower with contribution from plavix--flex sig showed angiectasias treated with APC--plavix on hold since admission--holding asa--HGB stable
Acute hypoxemic respiratory failure due to acute on chronic HFrEF and, now, L-sided PNA--all imaging reviewed--proBNP 2670--s/p IV Lasix (dosing had been on a daily basis), now on Lasix 80mg IV BID (started 11/15/24AM)--apprec renal/cards--diuresis
stopped--holding Entresto and Aldactone due to MARIA DOLORES---Coreg stopped due to hypotension, now restarted--CT chest with findings concerning for left lower lobe pneumonia and sputum Cx with pseudomonas, broad spectrum abx started 11/15/24, now on Cefepime
as per ID--s/p L-thoracentesis 11/18 for 1.45L, transudative
Cirrhosis--mostly likely cardiac cirrhosis (vs MASLD which is less likely)--cont Lactulose/Rifaximin--s/p Dx/Tx paracentesis 11/15 for 2L, SAAG > 1.1--is on abx--with GI bleed and cirrhosis, can predispose to encephalopathy (none currently)
MARIA DOLORES on CKD (likely 3b)--[employer] baseline Cr was 1.8--likely due to CRS as well as meds including Entresto and Aldactone which are on hold--Cr has overall improved
Pancytopenia, now leukopenia has resolved
CAD s/p stent and CABG- cont BB/ASA
h/o VT s/p ICD- cont Amio
Pulm HTN
Hyponatremia, mild
Hyperkalemia, resolved
HLD-currently on statin which will be stopped if transaminases worsen
Acute transaminitis, likely due to volume O/L
Thrombocytopenia, trend (currently stable)
h/o prostate CA s/p XRT
PAD/LBBB--cont ASA
Obesity due to excess calories
code status--FULL CODE
DVT proph--SCDs (LGIB and thrombocytopenia), encourage ambulation
Original Note:
Today's Communication/Plan
-
Continue IV Lasix 80 mg twice daily
Holding aspirin and Plavix for GI bleed
Follow H&H
GI bleed appears resolved at this time, monitor
Assessment / Plan
Assessment / Plan
Impression
Mr. Jonh Rodriguez is a 74-year-old male with past medical history significant for CAD status post CABG and stenting, peripheral arterial disease status post stenting, on dual antiplatelet therapy, CHF with depressed EF and history of VT status post
ICD on amiodarone, type 2 diabetes, chronic pulmonary hypertension, recent pneumonia with left-sided pleural effusion status post thoracenteses 8 days ago presented to the emergency department with bright red blood per rectum. Has heme positive red
stool in the ED.
Plan
# GI bleed
# Left lower quadrant pain
Patient presented with stools of mostly clots, dark red stools
Hemoglobin stable at 9. baseline hemoglobin was 10.2 in August. Status post 1 unit PRBC
Flexible sigmoidoscopy showed multiple angioectasias that bled on contact and were cauterized.
ICU recommendations
� Follow H&H
� Pantoprazole IV 40 mg twice daily
# Thrombocytopenia
Likely causes are renal sufficiency and hepatic insufficiency with history of cirrhosis
New. Platelet count stable at 76
- hold antiplatelet Plavix
� Platelet transfusion if platelet count below 50,000 and active bleeding
� Platelet transfusion if platelet count below 10,000
# Pneumonia
# Cough, chronic COPD
� CT chest: Left lower lobe pneumonia
� Sputum culture positive for Pseudomonas. Unclear if sputum culture Pseudomonas is a colonizer versus true pathogen.
- Appreciate ID -continue cefepime (transition from Zosyn for renal insufficiency) abx day. Continue to for 1 more day and observe off antibiotics. Vanc discontinued with negative MRSA screen
# Left pleural effusion
thoracentesis on 11-03--1100 cc of serosanguineous fluid-transudate. Repeat Thoracentesis in ICU 11/18, fluid removed 1450 ml, transudative. Negative cultures
- Secondary to CHF, decompensated cirrhosis. continue with Lasix
� PFTs 11/16/2024 demonstrated severe obstruction (COPD). Adjusted inhalers, which should be continued at home
� Outpatient [facility] testing. Pulmonology appointment scheduled on 11/22/2024
# Cirrhosis.
Ascites and transaminitis
AST ALT in the 100s. Ammonia elevated at 97 on admission. Total bili 1.2 to 1.5
Ascites secondary to decompensated cirrhosis CT showed cirrhosis
GI recommendations
- Okay to restart aspirin. Continue holding Plavix
� If loose stool, decrease lactulose 20 g twice daily.
� alpha-fetoprotein normal
- SAAG greater than 1.1 and total protein less than 2.5, suggesting portal hypertensive etiology for ascites
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
Follow-up with Dr. Butt as per line department supervisor for endoscopy outpatient
# Acute on chronic HFrEF
# Ischemic cardiomyopathy. Coronary disease with history of stent, CABG in 1994
# Ventricular tachycardia, ventricular fibrillation. S/P-BiV ICD/pacer original placement 2007 with revision generator changed in 2013
8 pound weight gain
Patient stated Sbp usually 88-95
- Holding Entresto and Aldactone for MARIA DOLORES although blood pressure okay to restart
� Coreg 6.25 mg P.o. twice daily
- Amio for Vtach
Cardiology recommendations
� Echo EF 35%
� GDMT: Entresto, SGLT2, spironolactone held due to MARIA DOLORES. Carvedilol 12.5 twice daily was recently lowered. [employer] ICD. Hope to resume GDMT with resolution of MARIA DOLORES
� Holding Asp 81 for GI bleed
# MARIA DOLORES on CKD
Likely cardiorenal
Creatinine 3 in the ED. currently 2.5
Hold Entresto, Metformin and Aldactone
Appreciate cards and nephro; Lasix 80 mg twice daily IV
# Microscopic hematuria. OP Urology F/U
History of nephrolithiasis
History of prostate cancer with history of radiation
CT-No nephrolithiasis or hydronephrosis on either side. No aggressive renal mass appreciated. The ureters are nondilated.The prostate gland is within normal limits.No significant bladder wall thickening or adjacent fat stranding.
# Hyperlipidemia- Statin
# Pulmonary hypertension
# Peripheral artery disease
# LBBB
# Ex Smoker
DVT prophylaxis-SCDs
Diet: 2 g sodium
Full code
Dispo: Patient came from home and is most interested in going home
� PT and OT recommended home health
Anticipated Discharge: 24 - 48 hours
Subjective/Interval History
-
Date of Service: November 20, 2024
Objective Data
-
Labs:
Laboratory Results
11/20/24
03:38
WBC 6.6
Hgb 8.4 L
Hct 26.9 L
Plt Count 76 L D
Sodium 133 L
Potassium 4.2
Chloride 103
Carbon Dioxide 24
BUN 83 H
Creatinine 2.5 H
Glucose 109 H
Calcium 8.3 L
Total Bilirubin 1.8 H
AST 171 H
ALT 211 H
Alkaline Phosphatase 125
Vital Signs:
Vital Signs
Temp Pulse Resp BP Pulse Ox
97.6 F 63 16 104/51 94
11/20/24 11:45 11/20/24 10:00 11/20/24 10:00 11/20/24 08:24 11/20/24 10:00
I&O
11/19/24 11/20/24 11/21/24
06:59 06:59 06:59
Intake Total 1020 / 1020 300 / 300 240 / 240
Output Total 2600 / 2600 1974 200 / 200
Balance -1580 / -1580 -1675 / -1675 40 / 40
Review of Systems
-
History Source: Patient
Constitutional: Denies Fever
Respiratory: Denies Trouble Breathing
Cardiac: Denies Chest Pain
Abdomen/GI: Reports Other (distention); Denies Abdominal Pain, Nausea, Vomiting, Bloody Stools or Black Stools
Musculoskeletal: Reports Edema (bilateral LE at baseline)
Physical Exam
-
General: Well Developed, Well Nourished, No Apparent Distress and Comfortable
HEENT: Normocephalic, Atraumatic and Moist Mucous Membranes
Respiratory: Decreased Breath Sounds (mildly reduced breath sounds in left lung base); Negative Wheezes, Rales, Rhonchi or Crackles
Cardiac: Regular Rhythm and S1/S2; Negative Murmur, Rub or Calf Tenderness
GI: Soft, Nontender, Normal Bowel Sounds, Distended and Other (positive fluid wave)
Musculoskeletal: No Clubbing, No Cyanosis, Edema, Right Lower Extrem (2+) and Edema, Left Lower Extrem (2+)
Skin: Warm and Dry
Neuro: Awake, Alert and Oriented
Psych: Calm
--- NOTE | 2024-11-20 15:56 | W.PN.NEPH.PH ---
Today's Communication / Plan
-
Holding Lasix
Assessment/Plan
-
Assessment
MARIA DOLORES (B/L cr 1.9 dating back 2021)
hyponatremia
Anemia
PNA
pancytopenia
HFrEF 35% with Moderate TR
SOB
cirrhosis
left pleural effusion
mild ascites
Plan
abx continues 1 more day per ID
Holding Entresto, Aldactone
Status post left thoracentesis 11/03/2024 , repeat thoracentesis 11/18
s/p para 2L 11/15
Status post: Colonoscopy reviewed
Creatinine trending up
Discontinue Lasix today
His weights overall have been down
we did have a discussion today with his about the possibility of dialysis in the event he continues to accumulate fluid requiring recurrent thoracentesis and/or paracentesis
With that said there is no acute need at this time will hold diuretics and see how he maintains

33 minutes critical care time
-
-
Date of Service: November 20, 2024
CC / HPI / ROS
-
Chief Complaint:
MARIA DOLORES
History of Present Illness:
Na stable 133
MARIA DOLORES/Cr down to 2.2
BP stable low
hgb stable
Review of Systems:
no CP/SOB
Labs
-
Labs:
WBC 6.6 10^3/uL (4.8-10.8) 11/20/24 03:38
RBC 2.62 10^6/uL (4.70-6.10) L 11/20/24 03:38
Hgb 8.4 g/dL (13.0-18.0) L 11/20/24 03:38
Hct 26.9 % (39.0-52.0) L 11/20/24 03:38
Plt Count 76 10^3/uL (130-400) L D 11/20/24 03:38
Sodium 133 mmol/L (135-145) L 11/20/24 03:38
Potassium 4.2 mmol/L (3.5-5.1) 11/20/24 03:38
Chloride 103 mmol/L (98-107) 11/20/24 03:38
Carbon Dioxide 24 mmol/L (22-30) 11/20/24 03:38
BUN 83 mg/dl (9-20) H 11/20/24 03:38
Creatinine 2.5 mg/dL (0.7-1.3) H 11/20/24 03:38
eGFR 25.98 11/20/24 03:38
Glucose 109 mg/dl (70-99) H 11/20/24 03:38
Calcium 8.3 mg/dl (8.4-10.2) L 11/20/24 03:38
[id number] Pept 2670 pg/ml 11/12/24 11:29
Albumin 3.0 g/dl (3.5-5.0) L 11/20/24 03:38
Physical Exam
-
Vital Signs:
Vital Signs
Temp Pulse Resp BP Pulse Ox
97.6 F 62 17 92/42 92
11/20/24 11:45 11/20/24 14:00 11/20/24 11:35 11/20/24 12:14 11/20/24 11:35
Cardiovascular:: Regular rate and rhythm
Respiratory:: Bilateral: CTA
Lung Excursion:: Normal
Abdomen:: Nontender and Soft
Bowel Sounds:: Normal
Extremity Edema:: +2: Bilateral:
[2024-11-20 17:12] LABS: Glucose - Point of Care 154 mg/dl (70-99)
--- NOTE | 2024-11-20 17:55 | PTCARENOTE ---
Pt OOB in chair throughout shift. Ambulated in hallway with physical therapy. Ambulating in room. Monitor AV-paced. at bedside, downgraded to tele status today.
[2024-11-20 21:14] LABS: Glucose - Point of Care 234 mg/dl (70-99)
[2024-11-20] MEDS: NOVOLOG FLEXPEN 3 UNITS SC (22:26)
[2024-11-20 22:27] LABS: Glucose - Point of Care 207 mg/dl (70-99)
[2024-11-21] VITALS (7 sets, daily range): BP systolic 95–114; BP diastolic 46–60; BMI 31.5
[2024-11-21 03:39] LABS: Glucose - Point of Care 125 mg/dl (70-99)
[2024-11-21 05:17] LABS: Hematocrit 24.9 % (39.0-52.0); Hemoglobin 8.4 g/dL (13.0-18.0); Mean Corp Hgb Conc. 33.7 g/dL (33.0-37.0); Mean Corpuscular Volume 100.8 fL (80.0-94.0); Platelet Count 61 10^3/uL (130-400); Red Cell Dist. Width 16.2 % (11.5-14.5)
[2024-11-21 05:45] LABS: ALT (SGPT) 200 U/L (0-50); AST (SGOT) 144 U/L (17-59); Albumin 3.0 g/dl (3.5-5.0); Alkaline Phosphatase 121 U/L (38-126); Blood Urea Nitrogen 81 mg/dl (9-20); Calcium 8.3 mg/dl (8.4-10.2); Carbon Dioxide 23 mmol/L (22-30); Chloride 105 mmol/L (98-107); Estimated Creatinine Clearance 31 ml/min; Glucose 113 mg/dl (70-99); Magnesium 2.6 mg/dl (1.6-2.3); Potassium 4.0 mmol/L (3.5-5.1); Sodium 134 mmol/L (135-145); Total Protein 6.0 g/dl (6.3-8.2); eGFR 27.28
[2024-11-21] MEDS: MAXIPIME 1000 MG IV ×3 (06:22→21:45)
[2024-11-21] MEDS: STERILE WATER FOR INJECTION 10 ML IV ×3 (06:22→21:45)
[2024-11-21] MEDS: SPIRIVA RESPIMAT 2.5 MCG 2 PUFF INH (07:29)
[2024-11-21] MEDS: ADVAIR HFA 230/21 MCG INHALER 2 PUFF INH ×2 (07:30→20:07)
--- NOTE | 2024-11-21 07:53 | W.PN.ID1 ---
Date of Service
Date of Service: November 21, 2024
Today's Communication
Continue cefepime through the end of the day then discontinue.
Assessment / Plan
Pulmonary infiltrate
Pleural effusion
- s/p thoracentesis (11/18/2024); analysis not consistent with infection.
Sputum culture with Pseudomonas aeruginosa
Lower GI bleed
- S/p sigmoidoscopy and cauterization
Renal insufficiency
CHF (EF ~ 35%)
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
Ascites; s/p recent paracentesis for 2L
DM
HLD
HTN
CAD; Hx MD
PAD
Hx prostate CA
V. tach
CHF with depressed EF
COPD
Recommendations:
White count normal. Patient remains afebrile.
Prior sputum culture with Pseudomonas, although difficult to differentiate colonizer versus true pathogen. Sputum with only moderate WBCs.
Completing course of cefepime today.
Continue with Acapella device, along with incentive spirometry.
Monitor white count and temperature curve.
����������������������������������������������������������
Chief Complaint
-: Pneumonia and Other (GI bleed)
Subjective / Review of Systems
Review of Systems: No Fever, No Chills and Cough (Minimal.)
Vital Signs / Physical Exam
Vital Signs
Vital Signs
Temp Pulse Resp BP Pulse Ox
98.4 F 60 18 97/48 94
11/21/24 03:24 11/21/24 07:34 11/21/24 07:34 11/20/24 19:38 11/21/24 07:34
Physical Exam
Constitutional: No Acute Distress, Comfortable, Non-toxic and Obese
Eyes: Sclera Anicteric
Cardiovascular: Regular Rate and S1/S2; Negative S3/S4
Pulmonary: Coarse and Non Labored
Gastrointestinal: Soft, Non Tender, Distended, Normal Bowel Sounds and No Rebound
Extremities: Edema; Negative Cyanosis or Erythema
Skin: Warm and Dry; Negative Rash or Jaundice
Neurological: Awake and Alert
Psychological: Calm
Objective Data
Lab Data
Lab Results
11/21/24 04:57
11/21/24 04:57
PT 17.7 Sec (11.4-14.6) H 11/17/24 12:34
INR 1.41 11/17/24 12:34
APTT 34.5 Sec (23.4-35.0) 11/17/24 12:34
Estimated Creat Clear 31 ml/min 11/21/24 04:57
Lactic Acid 0.9 mmol/L (0.7-2.0) 11/17/24 12:34
Total Bilirubin 1.6 mg/dl (0.2-1.3) H 11/21/24 04:57
AST 144 U/L (17-59) H 11/21/24 04:57
ALT 200 U/L (0-50) H 11/21/24 04:57
Alkaline Phosphatase 121 U/L (38-126) 11/21/24 04:57
Most recent labs reviewed.
Micro Results:
11/18/24 11:47 Body Fluid Culture - Preliminary
Pleural Fluid No Growth After 48 Hours
Gram Stain - Final
11/18/24 11:47 Body Fluid Culture - Preliminary
Pleural Fluid No Growth After 48 Hours
Gram Stain - Preliminary
11/15/24 10:25 Body Fluid Culture - Final
Peritoneal Fluid No Growth After 72 Hours
Gram Stain - Final
11/14/24 11:36 Respiratory Culture - Final
Sputum Pseudomonas aeruginosa
Gram Stain - Final
11/15/24 15:44 Nasal Screen MRSA (PCR) - Final
Nose MRSA not detected - performed by PCR methodology.
11/12/24 04:54 Urine Culture - Final
Urine No Significant Growth
Respiratory Culture Final 11/14/24
Few Pseudomonas aeruginosa
Few Usual Respiratory Daria
Organism 1 Pseudomonas aeruginosa
1. Pseudomonas aeruginosa
M.I.C. RX
--------- ---
Aztreonam <=4 S
Cefepime <=2 S
Ceftazidime 4 S
Ciprofloxacin <=0.25 S
Meropenem <=1 S
Piperacillin/Tazobactam <=8 S
Tobramycin <=2 S
Imaging:
11/14/2024 CT chest without IV contrast: moderate loculated left pleural effusion noted. Moderate left lower lobe consolidation concerning for pneumonia. Moderate lingular consolidation also concerning for pneumonia. Mild right lower lobe
consolidation likely atelectasis. Small right pleural effusion noted. Cardiomegaly noted. Please see full dictation for additional detail.
11/12/2024 ECHO (TTE): Severely dilated LV with moderately reduced systolic function. LVEF approximately 35%. Mild aortic stenosis. Mild to moderate tricuspid regurgitation.
[2024-11-21] MEDS: NOVOLOG FLEXPEN-MODERATE RESISTANCE SC (07:59)
[2024-11-21] MEDS: XIFAXAN 550 MG PO ×2 (08:01→19:34)
[2024-11-21] MEDS: NOVOLOG FLEXPEN 5 UNITS SC ×3 (08:01→16:53)
[2024-11-21] MEDS: PACERONE 200 MG PO (08:02)
[2024-11-21] MEDS: MUCINEX 600 MG PO ×2 (08:02→19:34)
[2024-11-21] MEDS: DUPHALAC/CHRONULAC 20 GRAMS PO ×2 (08:02→19:34)
[2024-11-21] MEDS: COREG 6.25 MG PO ×2 (08:02→19:33)
[2024-11-21] MEDS: DELTASONE 30 MG PO (08:02)
[2024-11-21] MEDS: PROTONIX IV 40 MG IV ×2 (08:03→19:34)
[2024-11-21] MEDS: NSS (PRESERVATIVE FREE) 10 ML IV ×2 (08:03→19:34)
[2024-11-21 08:08] LABS: Glucose - Point of Care 117 mg/dl (70-99)
--- NOTE | 2024-11-21 08:35 | W.PN.CD ---
Today's Communication / Plan
-
Creatinine 2.4 down from 2.5. Diuretics held yesterday. Patient still with lower extremity edema. May consider reinitiation of diuretic and following renal function closely. Perhaps daily dosing rather than twice daily. Would await until
additional assessment by nephrology.
Patient remains anemic with hemoglobin 8.4. No acute bleeding overnight. Ideally would like to see hemoglobin higher considering all patient's issues including underlying CAD. Additional management of hemoglobin as directed by primary team and
patient account specialist.
Impression / Plan
-
I/P: 74M with ventricular tachycardia (on amiodarone, Medtronic ICD), coronary artery disease status post bypass, HFrEF, hypertension, hypercholesterolemia, PAD, cirrhosis of the liver, type 2 diabetes mellitus, and prior prostate cancer presented
to the emergency department with a chief complaint of BRBPR.
Primary Reliability Specialist: Dr. Damon ([facility])
HFrEF, acute on chronic, severe requiring hospitalization
Ischemic cardiomyopathy, EF 35%
- Dry weight thought to be approx 100 kg, diuresis directed by nephrology as he presented with MARIA DOLORES -this requires intensive monitoring--suspect his dry weight is lower than this
- GDMT as tolerated:
-KYLER/ARB/ARNI: Entresto on hold with MARIA DOLORES
-SGLT2 inhibitor: None with MARIA DOLORES
-Aldosterone agonist: Spironolactone on hold with MARIA DOLORES
-Beta hemant: Carvedilol 6.25 mg BID (recently lowered) resumed 11/19
-Isosorbide/Hydralazine:�Not started due to low BP
-ICD: Implanted (Medtronic)
- Patient was maintained on Lasix IV twice daily but with trending up of creatinine held 11/21/2024. Will continue to monitor. Nephrology following
Rectal bleeding acute noted 11/17/2024.
-Hemoglobin of 8.4 , INR 11/17/2024 1.4
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
- hold ASA 81mg. and monitor for re-bleeding for. Resume aspirin as soon as safe from GI stand
Pleural effusion, left
- Moderate on CXR in ER, limited target for thoracentesis by ultrasound
- Status post left thoracentesis 11/03/2024 for 1100 mL - transudative by lights
- Additional thoracentesis been directed by primary team
Cirrhosis, with ascites
- Status post paracentesis for 2 L 11/15/2024
- GI following
MARIA DOLORES
- BUN 35, creatinine 1.9 in August
- 3.0 on admission now 3.0 down to 2.2 and then trending upward towards 2.5
-
Pseudomonas, on sputum culture, ID following
Thrombocytopenia, chronic
- H/H ~12/31 & Plt 109 while he was in [facility]
- DAPT on hold, after evaluation by GI, cardiology is okay with single agent once stable (ASA 81mg daily): currently on hold with active rectal bleeding
- Platelets 67.
CAD, s/p CABG
- Stable without chest pain
- Cardiac PET last month consistent with inferior and apical scar. No reversible defects.
- Continue statin; aspirin held
Ventricular tachycardia
- None on tele
- Prior history of VT and ICD shocks in 2020 and at that time amiodarone was increased to 400 mg a day and he states he had been on 400 mg until about 1 month ago when his primary speech communication professor reduced it.
- Amiodarone use. History as noted above. Rhythms currently appear stable. Challenging issues with patient with underlying liver disease. Will also need additional input from GI. Of note patient sees brush cutter Dr. Butt as an outpatient.
- Continue amiodarone and carvedilol
- s/p Medtronic ICD
Mild , mild/moderate TR, outpatient follow up
Type 2 diabetes mellitus, per primary service
Cirrhosis of the liver, follows with Dr. Butt
PAD, follows with Dr. Orr L femoral endarterectomy (2019), chronically occluded superficial femoral arteries bilaterally
Carotid artery stenosis, high-grade, >90% bilaterally, followed by Vascular
MARION
Physical Exam
Vital Signs/Labs
Vital Signs
Temp Pulse Resp BP Pulse Ox
97.8 F 62 18 102/52 94
11/21/24 08:07 11/21/24 08:00 11/21/24 07:34 11/21/24 07:56 11/21/24 07:34
11/20/24 11/21/24 11/22/24
06:59 06:59 06:59
Actual Weight 99.5 kg 99.6 kg
11/21/24 04:57
11/21/24 04:57
PT 17.7 Sec (11.4-14.6) H 11/17/24 12:34
INR 1.41 11/17/24 12:34
APTT 34.5 Sec (23.4-35.0) 11/17/24 12:34
Magnesium 2.6 mg/dl (1.6-2.3) H 11/21/24 04:57
11/12/24
11:29
Eep-S-Apgrslnpbdy Pept 2670
Physical Exam
Constitutional: No acute distress
Cardiovascular: Rhythm & rate is regular
Respiratory: Other (Wheeze at bases)
GI: Soft
Neuro/Psych: Alert
Data Reviewed
-
Date of Service: November 21, 2024
Medical Decision Making: Reviewed Test Results
X-Ray/CT/US/MRI/NUC/PET: Report Reviewed by me
Medical Tests (PFT, Pathology etc): Report Reviewed by me
Labs: Labs Reviewed by me
--- NOTE | 2024-11-21 08:52 | PTCARENOTE ---
Rec'd pt at 0700. Pt AAOx3, sitting OOB in chair, ambulates in room. Monitor AV-paced. Lungs sct coarseness, pox 94% RA. Tele LOC.
--- NOTE | 2024-11-21 09:42 | W.PN.PUL3 ---
Today's Communication / Plan
-
- DC prednisone
- Can transfer to telemetry floor
- Pulmonary team will continue to follow along
- Aspirin 81 mg resumed
Assessment
-
74-year-old male with a past medical history of hypertension, hyperlipidemia, chronic cough, DM type II, history of prostate cancer, history of VT s/p AICD (02/2008), CAD s/p CABG (1994) + coronary stent, chronic systolic heart failure with
diastolic dysfunction, ICM, chronic amiodarone therapy and PAD s/p bilateral common iliac artery stents who presents with rectal bleeding and weakness for 1 week. Patient reported that he started clots as well. Initially in the ER he was afebrile
with pulse rate 76, respiratory rate 17, BP 90/53, and saturating 96% on room air.. Initial labs pertinent for Hb 8.9, platelet count 98, sodium 130, potassium 5.3, creatinine 3.0, lipase 616, and urinalysis slightly cloudy with moderate bacteria.
Urine culture was collected. CXR showed a moderate left-sided pleural effusion. Of note he recently had a thoracentesis on 11/03/2024 where IR removed 1100 cc of serosanguineous transudative pleural fluid. He was started on a PPI in the ER and
admitted to the IMU for further care.. Cardiology was consulted given his history of CHF. Diuresis was started and GI was also consulted as he has ascites. He does have a refining supervisor, Dr. Butt, that he was told to follow-up for in the future
for an endoscopy. On 11/13, patient was short of breath and was found to be wheezing. Pulmonary service now consulted for additional management/recommendations.
11/17, patient developed brief hypotension after hematochezia and was transferred to ICU. In the ICU patient had stable hemoglobin and had another episode of hematochezia, small-volume. In view of COPD exacerbation and orthopnea he was treated
with steroids, bronchodilators and subsequently had a left-sided thoracentesis performed with 1450 mL of transudative fluid removed. Postprocedure respiratory status improved, he subsequently had a flexible sigmoidoscopy performed showing areas of
ectasia suspicious for radiation proctitis and received cautery. 11/19, patient was transferred to IMU.
#1. Hematochezia, recurrent with transient hypotension
- Patient initially presented with hematochezia. Plavix has been on hold since and was continuing on aspirin, recurrent episodes on 11/17 with transient hypotension
- Patient transferred to ICU for transient hypotension and bright red blood per rectum. Currently hemodynamically stable. No Further episodes since
- Continue to hold aspirin and Plavix. Coagulation panel normal, off Levophed now. Decision regarding ASA resumption per GI/Cards/Primary team.
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
#2. Decompensated cirrhosis
-Asterixis on admission, hepatic encephalopathy. Improved since he has been on lactulose and rifaximin, continue. Normal ammonia. At baseline
-Ascites and left pleural effusion. Status post paracentesis (11/15) and thoracentesis(11/03), suggestive of transudative fluid, related to decompensated cirrhosis. Fluid studies not suggestive of SBP.
-Repeat Thoracentesis in ICU 11/18, fluid removed 1450 ml, transudative
-Coagulopathy with mild thrombocytopenia. Stable
-Mild hyponatremia. Nephrology service on case, stable
#3. Acute kidney injury with suspect underlying chronic kidney disease.
-Nephrology service on case, currently Entresto and spironolactone have been on hold. Lasix per Nephrology service.
-Avoid hypotension, pressors as needed to keep MAP above 65, monitor urine output closely
-At risk of hepatorenal syndrome with underlying decompensated cirrhosis.
-SBP ruled out
-Creatinine stable. Nephrology service on case
#4. Left sided pleural effusion
- Thoracentesis #1, 11/03, 1100 ml fluid removed, Transudative on fluid analysis. Suspect related to underlying cirrhosis
- Thoracentesis #2, 11/18, 1450 ml fluid removed, Transudative, cultures have stayed negative
#5. Left lower lobe pneumonia versus compressive atelectasis due to effusion
- Pseudomonas noted on sputum cultures, unclear if true pathogen versus colonizer. ID service on case, continue antibiotics per ID service
- Pleural fluid transudative not suggestive of empyema or parapneumonic effusion.
#6. COPD with severe obstruction on spirometry, Acute exacerbation 11/17
- Clinically quite improved, switched back to Spiriva and Advair, discontinue nebulizer treatments, switched IV steroids to oral prednisone, finishing 11/21.
- Patient will resume outpatient follow-up with [facility] pulmonary clinic, Dr. Urias
#7. Acute on chronic heart failure with reduced ejection fraction, LVEF 35%
- Cardiology service on case, improving pulmonary congestion, on lasix
- Monitor input and output closely, monitor renal function
#8. Mild pulmonary HTN
- Suspect group 2 with underlying history of congestive heart failure in pulmonary artery pressure was 36 in July 2020
Other medical diagnoses:
Hypertension
Hyperlipidemia
DM type II
History of prostate cancer s/p radiation
History of VT s/p AICD 2007
CAD s/p CABG (1994)
Anemia
Chronic cough
Chronic systolic heart failure with diastolic dysfunction/ICM
Stable 3 mm nodule in left lung base
Chronic amiodarone therapy
PAD s/p bilateral common iliac artery stents 09/29/2018
Former tobacco smoker (1PPD x 15-20 years - quit 1994)
Centrilobular emphysema seen on imaging
Can transfer out of IMU to telemetry floor. Saturating well on room air, not requiring any pressors.
Total time spent on this consultation/encounter _40___ minutes which includes review of history, physical exam, medications, laboratory data, personal review of imaging, extensive review of outpatient records, discussion with care team and
respiratory therapy.
Data:
CT abdomen/pelvis without contrast 11/12/2024:
1. Small amount of peritoneal ascites, new compared to prior CT dated 12/01/2023.
2. Nodular contour of the liver, suggestive of hepatic cirrhosis.
3. Liver is hyperattenuating relative to the spleen, which may be seen in the setting of hemachromatosis, Mando's disease, glycogen storage disease, or drug toxicity.
4. Splenomegaly.
5. Left pleural effusion, partially imaged. Right lower lobe consolidation, which may represent atelectasis or pneumonia.
CT Chest - Moderate loculated left pleural effusion. Moderate left lower lobe consolidation concerning for pneumonia. Moderate lingular consolidation concerning for pneumonia. Mild right lower lobe consolidation probably atelectasis. Tiny
right pleural effusion. Cardiomegaly. Moderate abdominopelvic ascites. Probable splenomegaly. Nodular hepatic margin suggesting cirrhosis
ECHO 11/12/24: 1. Severely dilated LV with moderately reduced systolic function.
2. LVEF is approximately 35% by Kearney's method of this. Inferior and anteroseptal hypokinesis.
3. Normal RV size and function.
4. Mild aortic stenosis.
5. Mild to moderate tricuspid regurgitation. Estimated PASP of 33 mmHg.
6. Compared to prior from July 21, 2020, there is new mild aortic stenosis.
Spirometry 11/16/24: FEV1 0.99L 33%, FVC 1.49L 37%, ratio 66. Post FEV1 1.06L 36%; + BD response in FVC (severe obstruction)
Subjective Data
-
Date of Service:
Date of Service: November 21, 2024
Chief Complaint: Pulmonary Follow Up
Subjective:
Patient comfortably sitting in chair on room air in no acute distress.
Review of Systems
Genitourinary: Other (All 14 systems reviewed and negative except as stated above in the history of present illness.)
Objective Data
Data Reviewed
Vital Signs / I&O / Oxygen:
Vital Signs
Temp Pulse Resp BP Pulse Ox
97.8 F 62 18 102/52 94
11/21/24 08:07 11/21/24 08:00 11/21/24 07:34 11/21/24 07:56 11/21/24 07:34
Intake and Output
11/20/24 11/21/24 11/22/24
06:59 06:59 06:59
Intake Total 300 / 300 480 / 480
Output Total 1974 600 / 600
Balance -1675 / -1675 -120 / -120
SaO2 94
Nasal Cannula flow liters per 2
minute
Physical Exam
General: Respiratory Distress (negative), Comfortable, Chills (negative), Sweats (negative) and Other (obese male in NAD)
HEENT: Normocephalic, Anicteric and Other (thick neck)
Cardiovascular: Peripheral Edema (Unchanged pedal edema) and Other (normal rate)
Respiratory: Wheeze (Significantly improved), Crackles (Improved air entry bilaterally no crackles), Rhonchi (Resolved) and Non-Labored Respirations
GI: Soft, Distended (abdominal distension with fluid in addition to obesity), Non Tender and Normal Bowel Sounds
Neurology: Awake, Alert, Tremors (negative) and Other (slow to respond to questions/flat affect)
Skin: Warm, Dry and Cyanosis (negative)
Labs/Micro/Reports
Lab Data
11/21/24 04:57
11/21/24 04:57
Microbiology
11/18/24 11:47 Pleural Fluid Body Fluid Culture - Preliminary
No Growth After 48 Hours
11/18/24 11:47 Pleural Fluid Gram Stain - Final
11/18/24 11:47 Pleural Fluid Body Fluid Culture - Preliminary
No Growth After 48 Hours
11/18/24 11:47 Pleural Fluid Gram Stain - Preliminary
11/15/24 10:25 Peritoneal Fluid Body Fluid Culture - Final
No Growth After 72 Hours
11/15/24 10:25 Peritoneal Fluid Gram Stain - Final
[2024-11-21] MEDS: ASPIR LOW (ENTERIC COATED) 81 MG PO (10:45)
[2024-11-21 12:07] LABS: Glucose - Point of Care 236 mg/dl (70-99)
[2024-11-21] MEDS: NOVOLOG FLEXPEN-MODERATE RESISTANCE 3 UNITS SC ×2 (12:25→16:53)
--- NOTE | 2024-11-21 12:37 | W.PN.NEPH.PH ---
Today's Communication / Plan
-
Lasix, IV albumin, Epogen
Assessment/Plan
-
Assessment
MARIA DOLORES (B/L cr 1.9 dating back 2021)
hyponatremia
Anemia
PNA
pancytopenia
HFrEF 35% with Moderate TR
SOB
cirrhosis
left pleural effusion
mild ascites
Plan
abx completed
Holding Entresto, Aldactone
Status post left thoracentesis 11/03/2024 , repeat thoracentesis 11/18
s/p para 2L 11/15
Status post: Colonoscopy reviewed
I had a long discussion with the patient and his again today about what we are from fluid standpoint. I discussed that we either stay conservative which we will accomplish much we are aggressive with the diuretics to help improve clinical with
the understanding that his creatinine will likely increase and may have to live a much lower GFR but we again discussed hemodialysis as well pending his response
They understand the situation and realize we are not making much progress
I will place him back on Lasix 80 mg twice daily with albumin 3 times daily
His iron saturation is 25% adequate
I will start Epogen subcutaneously continue weekly
I discussed this with the medical nurse as well as the entire medical team

33 minutes critical care time
-
-
Date of Service: November 21, 2024
CC / HPI / ROS
-
Chief Complaint:
MARIA DOLORES
History of Present Illness:
Na stable 133
MARIA DOLORES/Cr
BP stable low
hgb stable
Review of Systems:
no CP/SOB
Labs
-
Labs:
WBC 6.6 10^3/uL (4.8-10.8) 11/21/24 04:57
RBC 2.47 10^6/uL (4.70-6.10) L 11/21/24 04:57
Hgb 8.4 g/dL (13.0-18.0) L 11/21/24 04:57
Hct 24.9 % (39.0-52.0) L 11/21/24 04:57
Plt Count 61 10^3/uL (130-400) L 11/21/24 04:57
Sodium 134 mmol/L (135-145) L 11/21/24 04:57
Potassium 4.0 mmol/L (3.5-5.1) 11/21/24 04:57
Chloride 105 mmol/L (98-107) 11/21/24 04:57
Carbon Dioxide 23 mmol/L (22-30) 11/21/24 04:57
BUN 81 mg/dl (9-20) H 11/21/24 04:57
Creatinine 2.4 mg/dL (0.7-1.3) H 11/21/24 04:57
eGFR 27.28 11/21/24 04:57
Glucose 113 mg/dl (70-99) H 11/21/24 04:57
Calcium 8.3 mg/dl (8.4-10.2) L 11/21/24 04:57
Nll-G-Wnvbrqqbrch Pept 2670 pg/ml 11/12/24 11:29
Albumin 3.0 g/dl (3.5-5.0) L 11/21/24 04:57
Physical Exam
-
Vital Signs:
Vital Signs
Temp Pulse Resp BP Pulse Ox
97.5 F 62 18 102/52 94
11/21/24 11:45 11/21/24 08:00 11/21/24 07:34 11/21/24 07:56 11/21/24 07:34
Respiratory:: Bilateral: Coarse and Bilateral: Rales
Abdomen:: Distended and Soft
Bowel Sounds:: Normal
Extremity Edema:: +3: Bilateral:
--- NOTE | 2024-11-21 12:43 | W.PN.HOSP.TC ---
Addendum entered and electronically signed by Lissa Childress MD 11/21/24 13:31:
I saw and evaluated the patient independently. I reviewed the resident�s note and agree with findings and plan as documented by Dr. Devlin.
GENERAL: well developed, well nourished, male in no apparent distress
HEENT: NC/AT--no NC O2
HEART: regular rate and rhythm, +S1, +S2
LUNGS : decreased breath sounds bilaterally
ABDOM: soft, nontender, nondistended, + bowel sounds, + fluid wave
EXT: no cyanosis, clubbing-- has 3+ pitting edema to bilateral LE edema
NEUROLOGIC: grossly intact
Acute GIB--presented with BRBPR--likely lower with contribution from plavix--flex sig showed angiectasias treated with APC--plavix on hold since admission--holding asa--HGB stable
Acute hypoxemic respiratory failure due to acute on chronic HFrEF and, now, L-sided PNA--all imaging reviewed--proBNP 2670--s/p IV Lasix (dosing had been on a daily basis), was on Lasix 80mg IV BID (started 11/15/24AM)--apprec renal/cards--diuresis
stopped but restarted at said dosage--holding Entresto and Aldactone due to MARIA DOLORES---Coreg stopped due to hypotension, now restarted--CT chest with findings concerning for left lower lobe pneumonia and sputum Cx with pseudomonas, broad spectrum abx
started 11/15/24, now on Cefepime as per ID
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
and repeat paracentesis (if enough fluid found) tomorrow
MARIA DOLORES on CKD (likely 3b)--[employer] baseline Cr was 1.8, now 2.4 which may be new baseline--likely due to cardiorenal syndrome as well as meds including Entresto and Aldactone which are on hold
Pancytopenia, now leukopenia has resolved
CAD s/p stent and CABG- cont BB/ASA
h/o VT s/p ICD- cont Amio
Pulm HTN
Hyponatremia, mild
Hyperkalemia, resolved
HLD-currently on statin which will be stopped if transaminases worsen
Acute transaminitis, likely due to volume O/L
Thrombocytopenia, trend (currently stable)
h/o prostate CA s/p XRT
PAD/LBBB--cont ASA
Obesity due to excess calories
code status--FULL CODE
DVT proph--SCDs (LGIB and thrombocytopenia), encourage ambulation
Original Note:
Today's Communication/Plan
-
Arrange for paracentesis
Resume Lasix IV 80 BID
Continue Asp while plavix held
Follow CBC
Hold nephrotoxic agents for MARIA DOLORES
Assessment / Plan
Assessment / Plan
Impression
Mr. Jonh Rodriguez is a 74-year-old male with past medical history significant for CAD status post CABG and stenting, peripheral arterial disease status post stenting, on dual antiplatelet therapy, CHF with depressed EF and history of VT status post
ICD on amiodarone, type 2 diabetes, chronic pulmonary hypertension, recent pneumonia with left-sided pleural effusion status post thoracenteses 8 days ago presented to the emergency department with bright red blood per rectum. Has heme positive red
stool in the ED.
Plan
# GI bleed
In pt on DAPT.
Hemoglobin stable at 9. baseline hemoglobin was 10.2 in August. Status post 1 unit PRBC on 11/12
Flexible sigmoidoscopy showed multiple angioectasias that bled on contact and were cauterized.
� No further bleeds. Hgb stable at 8.4. Follow CBC
� Pantoprazole IV 40 mg twice daily
# Thrombocytopenia
Likely causes are renal sufficiency and hepatic insufficiency with history of cirrhosis
Platelet count 61 today with no active bleed
- holding Plavix
� Platelet transfusion if platelet count below 50,000 and active bleeding
� Platelet transfusion if platelet count below 10,000
# Acute hypixemic respiratory faillure
Acute HFrEF exacerbation
L sided pneumonia
ProBNP 2670. CT chest: Left lower lobe pneumonia, left pleural effusion secondary to CHF, decompensated cirrhosis. Sputum culture positive for Pseudomonas. Unclear if sputum culture Pseudomonas is a colonizer versus true pathogen.
- Appreciate ID -continue cefepime (transition from Zosyn for renal insufficiency) abx day 7. Observe off antibiotics after today. Vanc discontinued with negative MRSA screen
thoracentesis on 11-03-25-1100 cc of serosanguineous fluid-transudate. Repeat Thoracentesis in ICU 11/18, fluid removed 1450 ml, transudative. Negative cultures
- Was on daily lasix, which was held briefly yesterday for MARIA DOLORES. Restart lasix today 80mg IV BID
# Decompensated Cirrhosis.
Ascites and transaminitis
Ammonia elevated at 97 on admission. Given GIB, increased risk of hepatic encephalopathy
- Apreciate GI
- Aspirin restarted. Continue holding Plavix
� If loose stool, decrease lactulose 20 g twice daily.
� alpha-fetoprotein normal
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
- Ongoing abd distension. will arrange for paracentesis for tomorrow
Follow-up with Dr. Butt as per rn cardiology for endoscopy outpatient
COPD:
� PFTs 11/16/2024 demonstrated severe obstruction (COPD). Adjusted inhalers, which should be continued at home
� Outpatient [facility] testing. Pulmonology appointment scheduled on 11/22/2024
# MARIA DOLORES on CKD
Likely cardiorenal
Creatinine 3 in the ED. currently stable at 2.4. Unclear true baseline. Potentially this could be his new baseline
- Hold Entresto, Metformin and Aldactone
- Appreciate cards and nephro; Lasix 80 mg twice daily IV
# HFrEF
# Ischemic cardiomyopathy. Coronary disease with history of stent, CABG in 1994
# Ventricular tachycardia, ventricular fibrillation. S/P-BiV ICD/pacer original placement 2007 with revision generator changed in 2013
Patient stated Sbp usually 88-95
- Holding Entresto and Aldactone for MARIA DOLORES although blood pressure okay to restart
� Coreg 6.25 mg P.o. twice daily
- Amio for Vtach
� Echo EF 35%
� GDMT: Entresto, SGLT2, spironolactone held due to MARIA DOLORES. Carvedilol 12.5 twice daily was recently lowered. Medtronic ICD. Hope to resume GDMT with resolution of MARIA DOLORES
� Cont Asp
- Appreciate cards
# Microscopic hematuria.
- OP Urology F/U
History of nephrolithiasis
History of prostate cancer with history of radiation
CT-No nephrolithiasis or hydronephrosis on either side. No aggressive renal mass appreciated. The ureters are nondilated.The prostate gland is within normal limits.No significant bladder wall thickening or adjacent fat stranding.
# Hyperlipidemia- Statin
# Pulmonary hypertension
# Peripheral artery disease
# LBBB
# Ex Smoker
DVT prophylaxis-SCDs
Diet: 2 g sodium
Full code
Dispo: Patient came from home and is most interested in going home
� PT and OT recommended home with PT
Anticipated Discharge: > 48 hours
Subjective/Interval History
-
Date of Service: November 21, 2024
Objective Data
-
Labs:
Laboratory Results
11/21/24
04:57
WBC 6.6
Hgb 8.4 L
Hct 24.9 L
Plt Count 61 L
Sodium 134 L
Potassium 4.0
Chloride 105
Carbon Dioxide 23
BUN 81 H
Creatinine 2.4 H
Glucose 113 H
Calcium 8.3 L
Total Bilirubin 1.6 H
AST 144 H
ALT 200 H
Alkaline Phosphatase 121
Vital Signs:
Vital Signs
Temp Pulse Resp BP Pulse Ox
97.5 F 62 18 102/52 94
11/21/24 11:45 11/21/24 08:00 11/21/24 07:34 11/21/24 07:56 11/21/24 07:34
I&O
11/20/24 11/21/24 11/22/24
06:59 06:59 06:59
Intake Total 300 / 300 480 / 480
Output Total 1974 600 / 600
Balance -1675 / -1675 -120 / -120
Review of Systems
-
History Source: Patient
Constitutional: Denies No Appetite
Respiratory: Denies Trouble Breathing
Cardiac: Denies Chest Pain
Abdomen/GI: Reports Constipated; Denies Abdominal Pain, Nausea, Vomiting, Diarrhea or Bloody Stools
Genitourinary: Denies Dysuria, Difficulty Voiding or Bleeding
Hematologic / Lymphatic: Denies Bleeding
Physical Exam
-
General: Well Developed, Well Nourished and Comfortable
HEENT: Normocephalic and Atraumatic
Respiratory: Rhonchi (scattered), Non Labored Respirations and Decreased Breath Sounds (LLL); Negative Wheezes
Cardiac: Regular Rhythm and S1/S2; Negative Murmur, Rub or Calf Tenderness
GI: Nontender, Normal Bowel Sounds, Distended and Other (positive fluid wave)
Musculoskeletal: No Clubbing, No Cyanosis, Edema, Right Lower Extrem (2+) and Edema, Left Lower Extrem (2+)
Skin: Warm and Dry
Neuro: Awake, Alert and Oriented
Psych: Calm
[2024-11-21] MEDS: FLEXBUMIN 50 IV ×2 (14:00→21:44)
[2024-11-21] MEDS: LASIX 80 MG IV ×2 (14:01→18:04)
[2024-11-21] MEDS: RETACRIT 10000 UNITS SC (14:01)
--- NOTE | 2024-11-21 14:20 | CM ---
CM reviewed chart, care ongoing.
Per PT deyanira, recommend home health, [facility]
Plan for repeat paracentesis (if enough fluid found) tomorrow 11/22
Patient on IV Lasix.
CM will continue to follow for all discharge needs.
Plan; home with , VN
[2024-11-21 17:04] LABS: Glucose - Point of Care 220 mg/dl (70-99)
--- NOTE | 2024-11-21 20:00 | PTCARENOTE ---
Rec'd pt after amb in [place], ad earline in room, oriented, cooperative, family at bedside, AV paced, bp stable, + LE edema, RA, lungs decr 1/4 up left, lungs coarse, sat 96, moist cough, + bowel sounds, no bm, abd obese, round, ascites, no n/v, voiding
w/o difficulty
[2024-11-21 21:22] LABS: Glucose - Point of Care 185 mg/dl (70-99)
[2024-11-22] VITALS (11 sets, daily range): BP systolic 62–112; BP diastolic 43–54; PULSE 60–61; O2SAT 98; BMI 31.3
[2024-11-22] MEDS: STERILE WATER FOR INJECTION IV ×3 (03:34→20:36)
--- NOTE | 2024-11-22 04:33 | PTCARENOTE ---
no changes in assessment
[2024-11-22 04:35] LABS: Hematocrit 25.8 % (39.0-52.0); Hemoglobin 8.5 g/dL (13.0-18.0); Mean Corp Hgb Conc. 32.9 g/dL (33.0-37.0); Mean Corpuscular Volume 100.4 fL (80.0-94.0); Platelet Count 58 10^3/uL (130-400); Red Cell Dist. Width 16.3 % (11.5-14.5)
[2024-11-22 04:52] LABS: Blood Urea Nitrogen 81 mg/dl (9-20); Calcium 8.7 mg/dl (8.4-10.2); Carbon Dioxide 25 mmol/L (22-30); Chloride 105 mmol/L (98-107); Estimated Creatinine Clearance 31 ml/min; Glucose 115 mg/dl (70-99); Potassium 3.8 mmol/L (3.5-5.1); Sodium 137 mmol/L (135-145); eGFR 27.28
[2024-11-22] MEDS: FLEXBUMIN 50 IV (05:17)
--- NOTE | 2024-11-22 06:51 | W.PN.HOSP.TC ---
Addendum entered and electronically signed by Jaswinder Cortes MD 11/23/24 14:24:
see update note
Original Note:
Today's Communication/Plan
-
Plan reviewed with attending.
Continue to diurese.
Assessment / Plan
Assessment / Plan
Impression
Mr. Jonh Rodriguez is a 74-year-old male with past medical history significant for CAD status post CABG and stenting, peripheral arterial disease status post stenting, on dual antiplatelet therapy, CHF with depressed EF and history of VT status post
ICD on amiodarone, type 2 diabetes, chronic pulmonary hypertension, recent pneumonia with left-sided pleural effusion status post thoracenteses 8 days ago presented to the emergency department with bright red blood per rectum. Has heme positive red
stool in the ED.
Thoracentesis on 11/03/2024 where IR removed 1100 cc of serosanguineous transudative pleural fluid. He was started on a PPI in the ER and admitted to the IMU for further care. Cardiology was consulted given his history of CHF. Diuresis was started
and GI was also consulted as he has ascites. He does have a endoscopic technician, Dr. Butt, that he was told to follow-up for in the future for an endoscopy. On 11/13, patient was short of breath and was found to be wheezing.
11/17, patient developed brief hypotension after hematochezia and was transferred to ICU. In the ICU patient had stable hemoglobin and had another episode of hematochezia, small-volume. In view of COPD exacerbation and orthopnea he was treated
with steroids, bronchodilators and subsequently had a left-sided thoracentesis performed with 1450 mL of transudative fluid removed. Postprocedure respiratory status improved, he subsequently had a flexible sigmoidoscopy performed showing areas of
ectasia suspicious for radiation proctitis and received cautery. 11/19, patient was transferred to IMU.
Today, pt reports feeling well. Nurse reports pt having a BM with streaks of blood. Hgb stable and hemodynamically stable. Discussion with cardiology regarding permanently stopping plavix in setting of GI bleed and both cardiac and vascular
surgeries are remote. Continuing downtrending thrombocytopenia plts 58. Kidney function continues to be poor BUN 81 Cr 2.4. GDMT continues to be held.
Plan
# GI bleed
Pt was on DAPT.
Hemoglobin stable at 8.5 since weekend. baseline hemoglobin was 10.2 in August. Status post 1 unit PRBC on 11/12
Flexible sigmoidoscopy showed multiple angioectasias that bled on contact and were cauterized.
� No further bleeds. Hgb stable at 8.4. Follow CBC
� Pantoprazole IV 40 mg twice daily
# Thrombocytopenia
Likely causes are renal sufficiency and hepatic insufficiency with history of cirrhosis
Platelet count 61 today with no active bleed
- holding Plavix
� Platelet transfusion if platelet count below 50,000 and active bleeding
� Platelet transfusion if platelet count below 10,000
# Acute hypixemic respiratory faillure
Acute HFrEF exacerbation
L sided pneumonia
ProBNP 2670. CT chest: Left lower lobe pneumonia, left pleural effusion secondary to CHF, decompensated cirrhosis. Sputum culture positive for Pseudomonas. Unclear if sputum culture Pseudomonas is a colonizer versus true pathogen.
- Appreciate ID -continue cefepime (transition from Zosyn for renal insufficiency) abx day 7. Observe off antibiotics. Vanc discontinued with negative MRSA screen
thoracentesis on -3-25-1100 cc of serosanguineous fluid-transudate. Repeat Thoracentesis in ICU 11/18, fluid removed 1450 ml, transudative. Negative cultures
- Was on daily lasix, which was held briefly yesterday for MARIA DOLORES. Restart lasix today 80mg IV BID
COPD:
� PFTs 11/16/2024 demonstrated severe obstruction (COPD). Adjusted inhalers, which should be continued at home
� Outpatient [facility] testing. Pulmonology appointment scheduled on 11/22/2024
- Lungs sound clear today. Initially examined before breathing treatments. No SOB or hypoxia. Continue spiriva and advair per pulm recs
# Decompensated Cirrhosis.
Ascites and transaminitis
Ammonia elevated at 97 on admission. Given GIB, increased risk of hepatic encephalopathy
- Apreciate GI
- Aspirin restarted.
� If loose stool, decrease lactulose 20 g twice daily.
� alpha-fetoprotein normal
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
- Ongoing abd distension. will arrange for paracentesis before discharge
Follow-up with Dr. Butt as per endoscopic technician for endoscopy outpatient
# MARIA DOLORES on CKD
Likely cardiorenal
Creatinine 3 in the ED. currently stable at 2.4. Unclear true baseline. Potentially this could be his new baseline
- Hold Entresto, Metformin and Aldactone
- Appreciate cards and nephro; Lasix 80 mg twice daily IV
- Nephrology determined pt is not a candidate for dialysis due to tenuous hemodynamics. Plan to continue IV diuresis
# HFrEF
# Ischemic cardiomyopathy. Coronary disease with history of stent, CABG in 1994
# Ventricular tachycardia, ventricular fibrillation. S/P-BiV ICD/pacer original placement 2007 with revision generator changed in 2013
Patient stated Sbp usually 88-95
- Holding Entresto and Aldactone for MARIA DOLORES although blood pressure okay to restart
� Coreg 6.25 mg P.o. twice daily
- Amio for Vtach
� Echo EF 35%
� GDMT: Entresto, SGLT2, spironolactone held due to MARIA DOLORES. Carvedilol 12.5 twice daily was recently lowered. Medtronic ICD. Hope to resume GDMT with resolution of MARIA DOLORES
� Cont Asp
- Appreciate cards
# Microscopic hematuria.
- OP Urology F/U
History of nephrolithiasis
History of prostate cancer with history of radiation
CT-No nephrolithiasis or hydronephrosis on either side. No aggressive renal mass appreciated. The ureters are nondilated.The prostate gland is within normal limits.No significant bladder wall thickening or adjacent fat stranding.
# Hyperlipidemia- Statin
# Pulmonary hypertension
# Peripheral artery disease
# LBBB
# Ex Smoker
DVT prophylaxis-SCDs
Diet: 2 g sodium
Full code
Dispo: Patient came from home and is most interested in going home
� PT and OT recommended home with PT
Anticipated Discharge: 24 - 48 hours
Subjective/Interval History
-
Date of Service: November 22, 2024
Mr. Rodriguez reports feeling well today. Denies SOB, abdominal pain, bleeding per rectum. He reports his LE edema is significantly improved from admission with his R always being worse than his L due to vascular surgery hx.
Objective Data
-
Labs:
Laboratory Results
11/22/24
04:13
WBC 6.2
Hgb 8.5 L
Hct 25.8 L
Plt Count 58 L
Sodium 137
Potassium 3.8
Chloride 105
Carbon Dioxide 25
BUN 81 H
Creatinine 2.4 H
Glucose 115 H
Calcium 8.7
Vital Signs:
Vital Signs
Temp Pulse Resp BP Pulse Ox
98 F 60 20 103/53 93
11/22/24 03:12 11/22/24 04:30 11/22/24 04:00 11/22/24 04:30 11/22/24 02:00
I&O
11/20/24 11/21/24 11/22/24
06:59 06:59 06:59
Intake Total 300 / 300 480 / 480 490 / 490
Output Total 1974 / 1974 600 / 600 1125 / 1125
Balance -1675 / -1675 -120 / -120 -635 / -635
Physical Exam
-
General: Well Developed, Well Nourished and Comfortable
HEENT: Normocephalic, Atraumatic and Moist Mucous Membranes
Respiratory: Clear to Auscultation, Wheezes and Rhonchi
Cardiac: Regular Rhythm and S1/S2
GI: Soft, Normal Bowel Sounds and Distended (fluid)
Musculoskeletal: Other (LE 2+ edema, R>L )
Skin: Warm and Dry
Neuro: AO x 3 and No Motor Deficits
Psych: Calm
[2024-11-22 07:50] LABS: Glucose - Point of Care 110 mg/dl (70-99)
[2024-11-22] MEDS: ADVAIR HFA 230/21 MCG INHALER 2 PUFF INH ×2 (07:53→19:58)
[2024-11-22] MEDS: SPIRIVA RESPIMAT 2.5 MCG 2 PUFF INH (07:53)
[2024-11-22] MEDS: XIFAXAN 550 MG PO ×2 (08:06→20:36)
[2024-11-22] MEDS: PACERONE 200 MG PO (08:06)
[2024-11-22] MEDS: COREG 6.25 MG PO ×2 (08:06→23:21)
[2024-11-22] MEDS: MUCINEX 600 MG PO ×2 (08:06→20:34)
[2024-11-22] MEDS: NSS (PRESERVATIVE FREE) 10 ML IV ×2 (08:07→20:34)
[2024-11-22] MEDS: ASPIR LOW (ENTERIC COATED) 81 MG PO (08:07)
[2024-11-22] MEDS: LASIX 80 MG IV ×2 (08:08→16:50)
[2024-11-22] MEDS: PROTONIX IV 40 MG IV ×2 (08:08→20:34)
[2024-11-22] MEDS: DUPHALAC/CHRONULAC 20 GRAMS PO ×2 (08:10→20:34)
[2024-11-22] MEDS: NOVOLOG FLEXPEN-MODERATE RESISTANCE SC (08:15)
[2024-11-22] MEDS: NOVOLOG FLEXPEN 5 UNITS SC ×3 (08:15→16:51)
--- NOTE | 2024-11-22 08:16 | W.PN.NEPH.PH ---
Today's Communication / Plan
-
Maintain IV Lasix twice daily
Follow BMP
Assessment/Plan
-
Assessment
MARIA DOLORES (B/L cr 1.9 dating back 2021)
hyponatremia
Anemia
PNA
pancytopenia
HFrEF 35% with Moderate TR
SOB
cirrhosis
left pleural effusion
mild ascites
Plan
Creatinine unchanged to 2.4 urine output around 1300 cc
abx completed
Holding Entresto, Aldactone
Status post left thoracentesis 11/03/2024 , repeat thoracentesis 11/18
s/p para 2L 11/15
Status post: Colonoscopy reviewed
Previous long discussion with the patient and his again today about what we are from fluid standpoint. I discussed that we either stay conservative which we will accomplish much we are aggressive with the diuretics to help improve clinical
with the understanding that his creatinine will likely increase and may have to live a much lower GFR but we again discussed hemodialysis as well pending his response
Unfortunately this patient would not be an appropriate dialysis candidate given his hemodynamic instability in the setting of both cirrhotic and cardiac failure
They understand the situation and realize we are not making much progress
maintain Lasix 80 mg twice daily with albumin 3 times daily
His iron saturation is 25% adequate
Started Epogen subcutaneously continue weekly

33 minutes critical care time
-
-
Date of Service: November 22, 2024
CC / HPI / ROS
-
Chief Complaint:
MARIA DOLORES
History of Present Illness:
Na stable 137
Creatinine unchanged to 2.4
BP stable low
Review of Systems:
no CP/SOB
Nonoliguric around 1300 cc
Weights unchanged
Labs
-
Labs:
WBC 6.2 10^3/uL (4.8-10.8) 11/22/24 04:13
RBC 2.57 10^6/uL (4.70-6.10) L 11/22/24 04:13
Hgb 8.5 g/dL (13.0-18.0) L 11/22/24 04:13
Hct 25.8 % (39.0-52.0) L 11/22/24 04:13
Plt Count 58 10^3/uL (130-400) L 11/22/24 04:13
Sodium 137 mmol/L (135-145) 11/22/24 04:13
Potassium 3.8 mmol/L (3.5-5.1) 11/22/24 04:13
Chloride 105 mmol/L (98-107) 11/22/24 04:13
Carbon Dioxide 25 mmol/L (22-30) 11/22/24 04:13
BUN 81 mg/dl (9-20) H 11/22/24 04:13
Creatinine 2.4 mg/dL (0.7-1.3) H 11/22/24 04:13
eGFR 27.28 11/22/24 04:13
Glucose 115 mg/dl (70-99) H 11/22/24 04:13
Calcium 8.7 mg/dl (8.4-10.2) 11/22/24 04:13
Jzd-A-Tzeuteotyta Pept 2670 pg/ml 11/12/24 11:29
Albumin 3.0 g/dl (3.5-5.0) L 11/21/24 04:57
Physical Exam
-
Vital Signs:
Vital Signs
Temp Pulse Resp BP Pulse Ox
97.6 F 60 16 103/53 98
11/22/24 08:12 11/22/24 07:57 11/22/24 07:57 11/22/24 04:30 11/22/24 07:57
Cardiovascular:: Regular rate and rhythm (paced)
Respiratory:: Bilateral: Coarse and Bilateral: Rales
Abdomen:: Distended and Soft
Bowel Sounds:: Normal
Extremity Edema:: +1: Bilateral:
Chávez Catheter: No
--- NOTE | 2024-11-22 09:20 | W.PN.PUL3 ---
Today's Communication / Plan
-
Trend Hb
Continue Advair + Spiriva
prn albuterol
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
Restart aldactonen when recommended by nephrology
Trend sCr and UOP
Na and fluid restricted diet
Daily weight
No additional recommendations at this time. Pulmonary service will now sign off. Continue outpatient pulmonary office follow-up --> he already has an appointment scheduled with Dr. Stockton on 12/20/2024 at 9 AM; Please reconsult if there are any
additional questions/concerns, or if patient's respiratory status deteriorates.
Assessment
-
74-year-old male with a past medical history of hypertension, hyperlipidemia, chronic cough, DM type II, history of prostate cancer, history of VT s/p AICD (02/2008), CAD s/p CABG (1994) + coronary stent, chronic systolic heart failure with
diastolic dysfunction, ICM, chronic amiodarone therapy and PAD s/p bilateral common iliac artery stents who presents with rectal bleeding and weakness for 1 week. Patient reported that he started clots as well. Initially in the ER he was afebrile
with pulse rate 76, respiratory rate 17, BP 90/53, and saturating 96% on room air.. Initial labs pertinent for Hb 8.9, platelet count 98, sodium 130, potassium 5.3, creatinine 3.0, lipase 616, and urinalysis slightly cloudy with moderate bacteria.
Urine culture was collected. CXR showed a moderate left-sided pleural effusion. Of note he recently had a thoracentesis on 11/03/2024 where IR removed 1100 cc of serosanguineous transudative pleural fluid. He was started on a PPI in the ER and
admitted to the IMU for further care.. Cardiology was consulted given his history of CHF. Diuresis was started and GI was also consulted as he has ascites. He does have a liability analyst, Dr. Butt, that he was told to follow-up for in the future
for an endoscopy. On 11/13, patient was short of breath and was found to be wheezing. Pulmonary service now consulted for additional management/recommendations.
11/17, patient developed brief hypotension after hematochezia and was transferred to ICU. In the ICU patient had stable hemoglobin and had another episode of hematochezia, small-volume. In view of COPD exacerbation and orthopnea he was treated
with steroids, bronchodilators and subsequently had a left-sided thoracentesis performed with 1450 mL of transudative fluid removed. Postprocedure respiratory status improved, he subsequently had a flexible sigmoidoscopy performed showing areas of
ectasia suspicious for radiation proctitis and received cautery. 11/19, patient was transferred to IMU.
#1. Hematochezia, recurrent with transient hypotension
- Patient initially presented with hematochezia. Plavix has been on hold since and was continuing on aspirin, recurrent episodes on 11/17 with transient hypotension
- Patient transferred to ICU for transient hypotension and bright red blood per rectum. Currently hemodynamically stable. No Further episodes since
- Continue to hold Plavix. ASA has been restarted as of 11/21/2024; Coagulation panel normal, off Levophed now
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
#2. Decompensated cirrhosis
-Asterixis on admission, hepatic encephalopathy. Improved since he has been on lactulose and rifaximin, continue. Ammonia improved
-Ascites and left pleural effusion. Status post paracentesis (11/15) and thoracentesis(11/03), suggestive of transudative fluid, related to decompensated cirrhosis. Fluid studies not suggestive of SBP.
-Repeat Thoracentesis in ICU 11/18, fluid removed 1450 ml, transudative
-Coagulopathy with mild thrombocytopenia. Stable
-Mild hyponatremia. Nephrology service on case, stable --> Na improved as of today to 137
#3. Acute kidney injury with suspect underlying chronic kidney disease.
-Nephrology service on case, currently Entresto and spironolactone have been on hold. Lasix per Nephrology service - on 40mg IV BID since 11/21
-Trend sCr and UOP
-Avoid hypotension, goal MAP>65-70 to help perfuse kidneys
-At risk of hepatorenal syndrome with underlying decompensated cirrhosis.
-SBP ruled out
#4. 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
- Thoracentesis #1, 11/03, 1100 ml fluid removed, Transudative on fluid analysis. Suspect related to underlying cirrhosis
- Thoracentesis #2, 11/18, 1450 ml fluid removed, Transudative, cultures have stayed negative
#5. Left lower lobe pneumonia versus compressive atelectasis due to effusion
- Pseudomonas noted on sputum cultures, unclear if true pathogen versus colonizer. ID service on case; s/p course of cefepime from 11/15 - 11/21 s/p dose of Zosyn on 11/15
- Pleural fluid transudative not suggestive of empyema or parapneumonic effusion.
#6. COPD with severe obstruction on spirometry, Acute exacerbation 11/17
- Clinically quite improved, switched back to Spiriva and Advair, discontinue nebulizer treatments, switched IV steroids to oral prednisone, finished 11/21.
- Patient will resume outpatient follow-up with [facility] pulmonary clinic, Dr. Urias
#7. Acute on chronic heart failure with reduced ejection fraction, LVEF 35%
- Cardiology service on case, improving pulmonary congestion, on lasix
- Monitor input and output closely, monitor renal function
#8. Mild pulmonary HTN
- Suspect group 1 with underlying cirrhosis and possibly dwayne-pulmonary syndrome and group 2 with underlying history of congestive heart failure
Other medical diagnoses:
Hypertension
Hyperlipidemia
DM type II
History of prostate cancer s/p radiation
History of VT s/p AICD 2007
CAD s/p CABG (1994)
Anemia
Chronic cough
Chronic systolic heart failure with diastolic dysfunction/ICM
Stable 3 mm nodule in left lung base
Chronic amiodarone therapy
PAD s/p bilateral common iliac artery stents 09/29/2018
Former tobacco smoker (1PPD x 15-20 years - quit 1994)
Centrilobular emphysema seen on imaging
No additional recommendations at this time. Pulmonary service will now sign off. Continue outpatient pulmonary office follow-up --> he already has an appointment scheduled with Dr. Stockton on 12/20/2024 at 9 AM; Thank you for allowing us to be
involved in the care of this patient. Please reconsult if there are any additional questions/concerns, or if patient's respiratory status deteriorates.
Total time spent today was ---37-- minutes for this encounter. Time includes reviewing laboratory test/imaging results, reviewing pertinent medical records, obtaining and reviewing medical history, performing an appropriate exam, ordering
medications, tests and procedures. Time also includes documentation of this encounter, coordinating patient care and communicating with other healthcare professionals. Total time does not include separately billed tests performed on this date of
service.
Data:
CT abdomen/pelvis without contrast 11/12/2024:
1. Small amount of peritoneal ascites, new compared to prior CT dated 12/01/2023.
2. Nodular contour of the liver, suggestive of hepatic cirrhosis.
3. Liver is hyperattenuating relative to the spleen, which may be seen in the setting of hemachromatosis, Mando's disease, glycogen storage disease, or drug toxicity.
4. Splenomegaly.
5. Left pleural effusion, partially imaged. Right lower lobe consolidation, which may represent atelectasis or pneumonia.
CT Chest - Moderate loculated left pleural effusion. Moderate left lower lobe consolidation concerning for pneumonia. Moderate lingular consolidation concerning for pneumonia. Mild right lower lobe consolidation probably atelectasis. Tiny
right pleural effusion. Cardiomegaly. Moderate abdominopelvic ascites. Probable splenomegaly. Nodular hepatic margin suggesting cirrhosis
ECHO 11/12/24: 1. Severely dilated LV with moderately reduced systolic function.
2. LVEF is approximately 35% by Kearney's method of this. Inferior and anteroseptal hypokinesis.
3. Normal RV size and function.
4. Mild aortic stenosis.
5. Mild to moderate tricuspid regurgitation. Estimated PASP of 33 mmHg.
6. Compared to prior from July 21, 2020, there is new mild aortic stenosis.
Spirometry 11/16/24: FEV1 0.99L 33%, FVC 1.49L 37%, ratio 66. Post FEV1 1.06L 36%; + BD response in FVC (severe obstruction)
Subjective Data
-
Date of Service:
Date of Service: November 22, 2024
Chief Complaint: Pulmonary Follow Up
Subjective:
Patient was seen and evaluated today bedside. Hb is stable today at 8.5. No rectal bleeding reported from the patient. Currently on room air breathing comfortably. Denies abdominal pain, nausea, fevers or chills.
Review of Systems
General: Other (Negative unless mentioned above)
Objective Data
Data Reviewed
Vital Signs / I&O / Oxygen:
Vital Signs
Temp Pulse Resp BP Pulse Ox
97.6 F 60 16 103/53 98
11/22/24 08:12 11/22/24 07:57 11/22/24 07:57 11/22/24 04:30 11/22/24 07:57
Intake and Output
11/21/24 11/22/24 11/23/24
06:59 06:59 06:59
Intake Total 480 / 480 490 / 490
Output Total 600 / 600 1125 / 1125 225 / 225
Balance -120 / -120 -635 / -635 -225 / -225
SaO2 98
Nasal Cannula flow liters per 2
minute
Physical Exam
General: Respiratory Distress (negative), Comfortable, Chills (negative), Sweats (negative) and Other (obese male in NAD)
HEENT: Normocephalic, Anicteric and Other (thick neck)
Cardiovascular: Murmur (ALISA, heard across anterior precordium), Peripheral Edema (+2 LE pitting edema bilaterally) and Other (normal rate)
Respiratory: Wheeze (negative), Rhonchi (Resolved), Non-Labored Respirations and Other (Coarse breath sounds heard bilaterally with diminished breath sounds in the left hemithorax from the base to middle lung field)
GI: Soft, Distended (abdominal distension with fluid in addition to obesity), Non Tender and Normal Bowel Sounds
Neurology: Awake, Alert, Oriented and Tremors (negative)
Skin: Warm, Dry and Cyanosis (negative)
Labs/Micro/Reports
Lab Data
11/22/24 04:13
11/22/24 04:13
Microbiology
11/18/24 11:47 Pleural Fluid Body Fluid Culture - Preliminary
11/18/24 11:47 Pleural Fluid Gram Stain - Final
11/18/24 11:47 Pleural Fluid Body Fluid Culture - Final
No Growth After 72 Hours
11/18/24 11:47 Pleural Fluid Gram Stain - Final
--- NOTE | 2024-11-22 10:01 | W.PN.UPDATE ---
Update Note
Progress Note Update
EP Consult Dictated:
Asked to comment on the use of amiodarone in a patient with hepatic cirrhosis.
In general amiodarone is not used in patients with hepatic cirrhosis.
If amiodarone is used in a patient with hepatic cirrhosis it is important to determine if the cirrhosis is caused from amiodarone in which case amiodarone needs to be discontinued if at all possible
If cirrhosis is from another etiology it is still advisable to discontinue amiodarone. If amiodarone must be used that should be used at the lowest possible dose.
The patient has had amiodarone used for recurrent ventricular tachycardia and ICD therapy. He has underlying ischemic cardiomyopathy.
We have the option to proceed to VT ablation.
The patient will be meeting with his nightman in the outpatient setting soon. I told the patient to review my recommendations that amiodarone be discontinued if preferred by the nightman and the patient proceed to elective VT ablation.
For now continue amiodarone at the recently lowered dose to 200 mg 1 time daily.
[2024-11-22 11:31] LABS: Glucose - Point of Care 189 mg/dl (70-99)
[2024-11-22] MEDS: NOVOLOG FLEXPEN-MODERATE RESISTANCE 1 UNITS SC (12:02)
[2024-11-22 14:35] LABS: Body Fluid Second Tech CW
--- NOTE | 2024-11-22 14:41 | W.PN.ID1 ---
Date of Service
Date of Service: November 22, 2024
Today's Communication
Observe off antibiotics.
Assessment / Plan
Pulmonary infiltrate
Pleural effusion
- s/p thoracentesis (11/18/2024); analysis not consistent with infection.
Sputum culture with Pseudomonas aeruginosa
Lower GI bleed
- S/p sigmoidoscopy and cauterization
Renal insufficiency
CHF (EF ~ 35%)
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
Ascites; s/p recent paracentesis for 2L
DM
HLD
HTN
CAD; Hx MT
PAD
Hx prostate CA
V. tach
CHF with depressed EF
COPD
Recommendations:
White count normal. Patient remains afebrile.
Prior sputum culture with Pseudomonas, although difficult to differentiate colonizer versus true pathogen. Sputum with only moderate WBCs.
Completed course of cefepime on 11/21/2024.
Observe off antibiotics.
Continue with Acapella device, along with incentive spirometry.
Monitor white count and temperature curve.
����������������������������������������������������������
Chief Complaint
-: Pneumonia and Other (GI bleed)
Subjective / Review of Systems
Review of Systems: No Fever, No Chills, No Cough and No Sputum Production
Vital Signs / Physical Exam
Vital Signs
Vital Signs
Temp Pulse Resp BP Pulse Ox
97.8 F 64 19 109/47 94
11/22/24 12:25 11/22/24 13:29 11/22/24 12:59 11/22/24 13:29 11/22/24 12:25
Physical Exam
Constitutional: No Acute Distress, Comfortable and Non-toxic
Eyes: Sclera Anicteric
Pulmonary: Non Labored
Gastrointestinal: Non Distended and Normal Bowel Sounds
Neurological: Awake and Alert
Psychological: Calm
Objective Data
Lab Data
Lab Results
11/22/24 04:13
PT 17.7 Sec (11.4-14.6) H 11/17/24 12:34
INR 1.41 11/17/24 12:34
APTT 34.5 Sec (23.4-35.0) 11/17/24 12:34
Estimated Creat Clear 31 ml/min 11/22/24 04:13
Lactic Acid 0.9 mmol/L (0.7-2.0) 11/17/24 12:34
Total Bilirubin 1.6 mg/dl (0.2-1.3) H 11/21/24 04:57
AST 144 U/L (17-59) H 11/21/24 04:57
ALT 200 U/L (0-50) H 11/21/24 04:57
Alkaline Phosphatase 121 U/L (38-126) 11/21/24 04:57
Most recent labs reviewed.
Micro Results:
11/22/24 12:52 Body Fluid Culture - Pending
Peritoneal Fluid Gram Stain - Pending
11/18/24 11:47 Body Fluid Culture - Preliminary
Pleural Fluid Gram Stain - Final
11/18/24 11:47 Body Fluid Culture - Final
Pleural Fluid No Growth After 72 Hours
Gram Stain - Final
11/15/24 10:25 Body Fluid Culture - Final
Peritoneal Fluid No Growth After 72 Hours
Gram Stain - Final
11/14/24 11:36 Respiratory Culture - Final
Sputum Pseudomonas aeruginosa
Gram Stain - Final
11/15/24 15:44 Nasal Screen MRSA (PCR) - Final
Nose MRSA not detected - performed by PCR methodology.
11/12/24 04:54 Urine Culture - Final
Urine No Significant Growth
Respiratory Culture Final 11/14/24
Few Pseudomonas aeruginosa
Few Usual Respiratory Daria
Organism 1 Pseudomonas aeruginosa
1. Pseudomonas aeruginosa
M.I.C. RX
--------- ---
Aztreonam <=4 S
Cefepime <=2 S
Ceftazidime 4 S
Ciprofloxacin <=0.25 S
Meropenem <=1 S
Piperacillin/Tazobactam <=8 S
Tobramycin <=2 S
Imaging:
11/14/2024 CT chest without IV contrast: moderate loculated left pleural effusion noted. Moderate left lower lobe consolidation concerning for pneumonia. Moderate lingular consolidation also concerning for pneumonia. Mild right lower lobe
consolidation likely atelectasis. Small right pleural effusion noted. Cardiomegaly noted. Please see full dictation for additional detail.
11/12/2024 ECHO (TTE): Severely dilated LV with moderately reduced systolic function. LVEF approximately 35%. Mild aortic stenosis. Mild to moderate tricuspid regurgitation.
[2024-11-22 14:50] LABS: Hematocrit 26.7 % (39.0-52.0); Hemoglobin 8.6 g/dL (13.0-18.0); Mean Corp Hgb Conc. 32.2 g/dL (33.0-37.0); Mean Corpuscular Volume 100.0 fL (80.0-94.0); Platelet Count 67 10^3/uL (130-400); Red Cell Dist. Width 16.4 % (11.5-14.5)
--- NOTE | 2024-11-22 14:54 | W.PN.UPDATE ---
Update Note
Progress Note Update
Acute GI bleed requiring 2 units PRBC. �Secondary to radiation proctitis/angioectasia s/p APC.
Hemoglobin remained stable
On aspirin for 2 days
Was transferred from ICU to [facility], had a bowel movement noted some blood overlying stool that appeared fresh per nursing
Will have GI reassess
MARIA DOLORES on CKD stage IIIb-IV
? �Cardiorenal syndrome or as this is new baseline
Nephrology wants to continue to diurese at 80 mg IV twice daily
-Legs continue to have 2+ pitting edema with chronic venous stasis changes
-Will ask nursing to elevate bilateral lower extremities and wrap
Monitor urinary output
Avoid nephrotoxins hypotension
CAD s/p stent and CABG
Continue beta-hemant aspirin
History of ventricular tachycardia s/p ICD
Continue amiodarone
Cirrhosis -compensated
Continue lactulose rifaximin
Continue Para's
- With how often he receives paracentesis may consider TIPS but would need to follow-up with outpatient traditional [facility] health practitioner for this
Outpatient hepatology follow-up
Thrombocytopenia related to cirrhosis
Trend
History of prostate cancer s/p XRT
PAD/LBBB continue aspirin
--- NOTE | 2024-11-22 15:16 | CM ---
Paracentesis today for 1100 cc fluid. IV/Lasix. Discharge POC: Home with [facility] for RN, PT/OT.
[2024-11-22] MEDS: NOVOLOG FLEXPEN-MODERATE RESISTANCE 3 UNITS SC (16:52)
[2024-11-22 16:59] LABS: Glucose - Point of Care 206 mg/dl (70-99)
[2024-11-22 21:08] LABS: Glucose - Point of Care 212 mg/dl (70-99)
[2024-11-23] MEDS: STERILE WATER FOR INJECTION IV ×2 (05:04→12:29)
--- NOTE | 2024-11-23 06:34 | W.PN.HOSP.TC ---
Addendum entered and electronically signed by Jaswinder Cortes MD 11/24/24 13:01:
see update note
Original Note:
Today's Communication/Plan
-
Plan reviewed with attending.
transition IV to PO lasix.
Discharge planning f/u appointments with Pulm, cardio, hepatology
Continue holding GDMT.
Assessment / Plan
Assessment / Plan
Impression
Mr. Jonh Rodriguez is a 74-year-old male with past medical history significant for CAD status post CABG and stenting, peripheral arterial disease status post stenting, on dual antiplatelet therapy, CHF with depressed EF and history of VT status post
ICD on amiodarone, type 2 diabetes, chronic pulmonary hypertension, recent pneumonia with left-sided pleural effusion status post thoracenteses 8 days ago presented to the emergency department with bright red blood per rectum. Has heme positive red
stool in the ED.
Thoracentesis on 11/03/2024 where IR removed 1100 cc of serosanguineous transudative pleural fluid. He was started on a PPI in the ER and admitted to the IMU for further care. Cardiology was consulted given his history of CHF. Diuresis was started
and GI was also consulted as he has ascites. He does have a paper sales representative, Dr. Butt, that he was told to follow-up for in the future for an endoscopy. On 11/13, patient was short of breath and was found to be wheezing.
11/17, patient developed brief hypotension after hematochezia and was transferred to ICU. In the ICU patient had stable hemoglobin and had another episode of hematochezia, small-volume. In view of COPD exacerbation and orthopnea he was treated
with steroids, bronchodilators and subsequently had a left-sided thoracentesis performed with 1450 mL of transudative fluid removed. Postprocedure respiratory status improved, he subsequently had a flexible sigmoidoscopy performed showing areas of
ectasia suspicious for radiation proctitis and received cautery. 11/19, patient was transferred to IMU. 11/22 pt downgraded to the floors
Today, pt reports feeling well. Hgb stable and hemodynamically stable. Kidney function continues to be stable at BUN 81 Cr 2.4. GDMT continues to be held, plan to restart once outpt. Discussion with pt regarding outpt follow up first with his
paper sales representative regarding amiodarone, then nephrology and cardiology.
Plan to go home with [facility]N upon discharge.
Plan
# GI bleed
Pt was on DAPT. Now only aspirin.
Hemoglobin stable at around 8.5 since weekend. baseline hemoglobin was 10.2 in August. Status post 1 unit PRBC on 11/12
Flexible sigmoidoscopy showed multiple angioectasias that bled on contact and were cauterized.
� No further bleeds. Hgb stable at 8.4. Follow CBC
� Pantoprazole IV 40 mg twice daily
# Thrombocytopenia
Likely causes are renal sufficiency and hepatic insufficiency with history of cirrhosis
Platelet count 61 today with no active bleed
- stopped Plavix
� Platelet transfusion if platelet count below 50,000 and active bleeding
� Platelet transfusion if platelet count below 10,000
# Acute hypoxemic respiratory failure
Acute HFrEF exacerbation
L sided pneumonia
ProBNP 2670. CT chest: Left lower lobe pneumonia, left pleural effusion secondary to CHF, decompensated cirrhosis. Sputum culture positive for Pseudomonas. Unclear if sputum culture Pseudomonas is a colonizer versus true pathogen.
- Appreciate ID -continue cefepime (transition from Zosyn for renal insufficiency) abx day 7. Observe off antibiotics. Vanc discontinued with negative MRSA screen
thoracentesis on --25-1100 cc of serosanguineous fluid-transudate. Repeat Thoracentesis in ICU 11/18, fluid removed 1450 ml, transudative. Negative cultures
- Was on daily lasix, which was held briefly yesterday for MARIA DOLORES. Lasix 80mg transitioned to PO.
COPD:
� PFTs 11/16/2024 demonstrated severe obstruction (COPD). Adjusted inhalers, which should be continued at home
� Outpatient [facility]ION testing. Pulmonology appointment scheduled on 11/22/2024
- Lungs sound clear today. Initially examined before breathing treatments. No SOB or hypoxia. Continue spiriva and advair per pulm recs
- F/u outpt 12/20/24 with pulm
# Decompensated Cirrhosis.
Ascites and transaminitis
Ammonia elevated at 97 on admission. Given GIB, increased risk of hepatic encephalopathy
- Apreciate GI
- Aspirin restarted.
� If loose stool, decrease lactulose 20 g twice daily.
� alpha-fetoprotein normal
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
- Ongoing abd distension. will arrange for paracentesis before discharge
Follow-up with Dr. Butt as per paper sales representative for endoscopy outpatient
# MARIA DOLORES on CKD
Likely cardiorenal
Creatinine 3 in the ED. currently stable at 2.4. Unclear true baseline. Potentially this could be his new baseline
- Hold Entresto, Metformin and Aldactone
- Appreciate cards and nephro; Lasix 80 mg twice daily now PO
- Nephrology determined pt is not a candidate for dialysis due to tenuous hemodynamics. Plan to continue diuresis
# HFrEF
# Ischemic cardiomyopathy. Coronary disease with history of stent, CABG in 1994
# Ventricular tachycardia, ventricular fibrillation. S/P-BiV ICD/pacer original placement 2007 with revision generator changed in 2013
Patient stated Sbp usually 88-95
- Holding Entresto and Aldactone for MARIA DOLORES although blood pressure okay to restart
� Coreg 6.25 mg P.o. twice daily
- Amio for Vtach
� Echo EF 35%
� GDMT: Entresto, SGLT2, spironolactone held due to MARIA DOLORES. Carvedilol 12.5 twice daily was recently lowered. Medtronic ICD. Hope to resume GDMT with resolution of MARIA DOLORES. Continue to hold until outpt contract forester or PCP restarts.
� Cont Asp
- Appreciate cards
- F/u outpt with cardiology
# Microscopic hematuria.
- OP Urology F/U
History of nephrolithiasis
History of prostate cancer with history of radiation
CT-No nephrolithiasis or hydronephrosis on either side. No aggressive renal mass appreciated. The ureters are nondilated.The prostate gland is within normal limits.No significant bladder wall thickening or adjacent fat stranding.
# Hyperlipidemia- Statin
# Pulmonary hypertension
# Peripheral artery disease
# LBBB
# Ex Smoker
DVT prophylaxis-SCDs
Diet: 2 g sodium
Full code
Dispo: Patient came from home and is most interested in going home
� PT and OT recommended home with PT
Anticipated Discharge: Within 24 hours
Subjective/Interval History
-
Date of Service: November 23, 2024
Objective Data
-
Labs:
Laboratory Results
11/23/24
06:00
WBC Pending
Hgb Pending
Hct Pending
Plt Count Pending
Sodium Pending
Potassium Pending
Chloride Pending
Carbon Dioxide Pending
BUN Pending
Creatinine Pending
Glucose Pending
Calcium Pending
Vital Signs:
Vital Signs
Temp Pulse Resp BP Pulse Ox
97.8 F 61 16 112/54 92
11/22/24 23:00 11/22/24 23:00 11/22/24 23:00 11/22/24 23:00 11/22/24 23:00
I&O
11/21/24 11/22/24 11/23/24
06:59 06:59 06:59
Intake Total 480 / 480 490 / 490 720 / 720
Output Total 600 / 600 1125 / 1125 1475 / 1475
Balance -120 / -120 -635 / -635 -755 / -755
[2024-11-23 07:30] VITALS: BP 116/52
[2024-11-23] MEDS: SPIRIVA RESPIMAT 2.5 MCG 2 PUFF INH (07:49)
[2024-11-23] MEDS: ADVAIR HFA 230/21 MCG INHALER 2 PUFF INH ×2 (07:49→19:45)
--- NOTE | 2024-11-23 08:34 | W.PN.CD ---
Today's Communication / Plan
-
Diuresis per nephrology
Add back his HF regimen with Cr back to baseline
Pt knows to discuss amiodarone with his cardboard cutter
Impression / Plan
-
Background: 74M with ventricular tachycardia (on amiodarone, Medtronic ICD), coronary artery disease, prior VA, status post bypass, HFrEF, hypertension, hypercholesterolemia, PAD, cirrhosis of the liver, type 2 diabetes mellitus, and prior prostate
cancer presented to the emergency department with a chief complaint of BRBPR.
Primary Student Recruiter: Dr. Damon ([facility])
Anemia with GI bleed from LGI bleed from radiation proctitis, s/p APC
- 2 unit PRBC transfused this admit
Antiplatelet therapy
- Admitted on DAPT
- Home on just ASA 81 daily
Amiodarone
- See EP consult
- If his cardboard cutter prefers he stop Amio then he stop it and meet with Dr. Sethi to see if he is an acceptable VT ablation candidate. If not then would add renally dosed sotalol (probably start at 120 q 48 hours)
HFrEF, at baseline from an ischemic cardiomyopathy, EF 35%
- Dry weight was felt to be 100 kg but seems good with lower weight
- Now 99 kg
- diuresis directed by nephrology as he presented with MARIA DOLORES
- GDMT as tolerated:
-KYLER/ARB/ARNI: Entresto on hold with MARIA DOLORES
-SGLT2 inhibitor: None with MARIA DOLORES
-Aldosterone agonist: Spironolactone on hold with MARIA DOLORES
-Beta hemant: Carvedilol 6.25 mg BID (recently lowered) resumed 11/19
-Isosorbide/Hydralazine:�Not started due to low BP
-ICD: Implanted (Medtronic)
Pleural effusion, left
- Moderate on CXR in ER, limited target for thoracentesis by ultrasound
- Status post left thoracentesis 11/03/2024 for 1100 mL - transudative by lights
- Additional thoracentesis been directed by primary team
Cirrhosis, with ascites
- Status post paracentesis for 2 L 11/15/2024
- Has an outpatient cardboard cutter
- See amiodarone comments above
MARIA DOLORES
- BUN 35, creatinine 1.9 in August
- 3.0 on admission now 3.0 down to 2.2 and then trending upward towards 2.5
-
Pseudomonas, on sputum culture, ID following
Thrombocytopenia, chronic => likely from cirrhosis
- H/H ~12/31 & Plt 109 while he was in [facility]
- Will go home on ASA 81 daily and no Plavix
- Platelets 67.
CAD, s/p CABG
- Stable without chest pain
- Cardiac PET last month consistent with inferior and apical scar. No reversible defects.
- Continue statin; aspirin held
Ventricular tachycardia
- None on tele
- Prior history of VT and ICD shocks in 2020 and at that time amiodarone was increased to 400 mg a day and he states he had been on 400 mg until about 1 month ago when his primary tailman reduced it.
- Amiodarone use. History as noted above. Rhythms currently appear stable. Challenging issues with patient with underlying liver disease. Will also need additional input from GI. Of note patient sees cardboard cutter Dr. Butt as an outpatient.
- Continue amiodarone and carvedilol
- s/p Medtronic ICD
- See EP Consult:
- If his cardboard cutter prefers he stop Amio then he stop it and meet with Dr. Sethi to see if he is an acceptable VT ablation candidate. If not then would add renally dosed sotalol (probably start at 120 q 48 hours)
Mild , mild/moderate TR, outpatient follow up
Type 2 diabetes mellitus, per primary service
Cirrhosis of the liver, follows with Dr. Butt
PAD, follows with Dr. Orr L femoral endarterectomy (2019), chronically occluded superficial femoral arteries bilaterally
Carotid artery stenosis, high-grade, >90% bilaterally, followed by Vascular
MARION
Subjective: Feels at baseline
Physical Exam
Vital Signs/Labs
Vital Signs
Temp Pulse Resp BP Pulse Ox
98.5 F 61 16 116/52 96
11/23/24 07:30 11/23/24 07:53 11/23/24 07:53 11/23/24 07:30 11/23/24 07:53
11/22/24 11/23/24 11/24/24
06:59 06:59 06:59
Actual Weight 99.1 kg
PT 17.7 Sec (11.4-14.6) H 11/17/24 12:34
INR 1.41 11/17/24 12:34
APTT 34.5 Sec (23.4-35.0) 11/17/24 12:34
Magnesium 2.6 mg/dl (1.6-2.3) H 11/21/24 04:57
11/12/24
11:29
Brc-U-Aivmjevqvog Pept 2670
Physical Exam
Constitutional: No acute distress
EENT: Anicteric
Cardiovascular: Rhythm & rate is regular and Pedal edema present (mild with LE KYLER bandages)
Respiratory: Respiratory effort normal and Lungs clear to auscul.
GI: Soft and Non tender
Neuro/Psych: AO x 3
Data Reviewed
-
Date of Service: November 23, 2024
[2024-11-23] MEDS: LASIX 80 MG IV (08:38)
[2024-11-23] MEDS: NSS (PRESERVATIVE FREE) 10 ML IV ×2 (08:40→19:55)
[2024-11-23] MEDS: PROTONIX IV 40 MG IV ×2 (08:40→19:55)
[2024-11-23] MEDS: MUCINEX 600 MG PO ×2 (08:41→19:55)
[2024-11-23] MEDS: DUPHALAC/CHRONULAC 20 GRAMS PO (08:41)
[2024-11-23] MEDS: COREG 6.25 MG PO (08:42)
[2024-11-23] MEDS: XIFAXAN 550 MG PO ×2 (08:42→21:04)
[2024-11-23] MEDS: ASPIR LOW (ENTERIC COATED) 81 MG PO (08:42)
[2024-11-23] MEDS: PACERONE 200 MG PO (08:42)
[2024-11-23 08:57] LABS: Blood Urea Nitrogen 81 mg/dl (9-20); Calcium 8.8 mg/dl (8.4-10.2); Carbon Dioxide 24 mmol/L (22-30); Chloride 104 mmol/L (98-107); Estimated Creatinine Clearance 31 ml/min; Glucose 96 mg/dl (70-99); Potassium 3.7 mmol/L (3.5-5.1); Sodium 136 mmol/L (135-145); eGFR 27.28
[2024-11-23 08:59] LABS: Hematocrit 25.2 % (39.0-52.0); Hemoglobin 8.3 g/dL (13.0-18.0); Mean Corp Hgb Conc. 32.9 g/dL (33.0-37.0); Mean Corpuscular Volume 101.2 fL (80.0-94.0); Platelet Count 60 10^3/uL (130-400); Red Cell Dist. Width 16.2 % (11.5-14.5)
[2024-11-23 09:04] LABS: Glucose - Point of Care 111 mg/dl (70-99)
[2024-11-23] MEDS: NOVOLOG FLEXPEN-MODERATE RESISTANCE SC ×2 (09:04→16:52)
[2024-11-23] MEDS: NOVOLOG FLEXPEN 5 UNITS SC ×3 (09:04→18:11)
--- NOTE | 2024-11-23 09:41 | VNURNOTE ---
Home Health Liaison met with patient at bedside to discuss [facility] nurse/therapy, visits, schedule and homebound status. Patient is agreeable and understands that visits at home will be 2-3 x per week to assess and teach medical management.
Patient is aware that [facility] will contact them for start of care in 1-2 days after discharge from . Provided contact number for [facility].
[facility] referral accepted in [facility].
--- NOTE | 2024-11-23 10:43 | W.PN.NEPH.PH ---
Today's Communication / Plan
-
Will change Lasix to 80 mg p.o. twice daily to see if there is efficacy for diuresis
Creatinine unchanged to 2.4
Assessment/Plan
-
Assessment
MARIA DOLORES (B/L cr 1.9 dating back 2021)
hyponatremia
Anemia
PNA
pancytopenia
HFrEF 35% with Moderate TR
SOB
cirrhosis
left pleural effusion
mild ascites
Plan
Creatinine unchanged to 2.4 urine output around 1300 cc on IV lasix
abx completed
Holding Entresto, Aldactone ,hemodynamically more stable
Status post left thoracentesis 11/03/2024 , repeat thoracentesis 11/18
s/p para 2L 11/15
Status post: Colonoscopy reviewed
Previous long discussion with the patient and his again today about what we are from fluid standpoint. I discussed that we either stay conservative which we will accomplish much we are aggressive with the diuretics to help improve clinical
with the understanding that his creatinine will likely increase and may have to live a much lower GFR but we again discussed hemodialysis as well pending his response
Unfortunately this patient would not be an appropriate dialysis candidate given his hemodynamic instability in the setting of both cirrhotic and cardiac failure
They understand the situation and realize we are not making much progress
Will change Lasix to 80 mg p.o. twice daily to see if uop persists (he only made 1200 cc on 80 mg IV twice daily of Lasix)
His iron saturation is 25% adequate
Started Epogen subcutaneously continue weekly

-
-
Date of Service: November 23, 2024
CC / HPI / ROS
-
Chief Complaint:
MARIA DOLORES
History of Present Illness:
Na stable
Creatinine unchanged to 2.4
BP stable low
Review of Systems:
no CP/SOB
Nonoliguric around 1300 cc
Weights unchanged
Labs
-
Labs:
WBC 5.2 10^3/uL (4.8-10.8) 11/23/24 07:14
RBC 2.49 10^6/uL (4.70-6.10) L 11/23/24 07:14
Hgb 8.3 g/dL (13.0-18.0) L 11/23/24 07:14
Hct 25.2 % (39.0-52.0) L 11/23/24 07:14
Plt Count 60 10^3/uL (130-400) L 11/23/24 07:14
Sodium 136 mmol/L (135-145) 11/23/24 07:14
Potassium 3.7 mmol/L (3.5-5.1) 11/23/24 07:14
Chloride 104 mmol/L (98-107) 11/23/24 07:14
Carbon Dioxide 24 mmol/L (22-30) 11/23/24 07:14
BUN 81 mg/dl (9-20) H 11/23/24 07:14
Creatinine 2.4 mg/dL (0.7-1.3) H 11/23/24 07:14
eGFR 27.28 11/23/24 07:14
Glucose 96 mg/dl (70-99) 11/23/24 07:14
Calcium 8.8 mg/dl (8.4-10.2) 11/23/24 07:14
Dtv-P-Vqkzcgzvlxw Pept 2670 pg/ml 11/12/24 11:29
Albumin 3.0 g/dl (3.5-5.0) L 11/21/24 04:57
Physical Exam
-
Vital Signs:
Vital Signs
Temp Pulse Resp BP Pulse Ox
98.5 F 63 16 116/52 96
11/23/24 07:30 11/23/24 08:42 11/23/24 07:53 11/23/24 08:42 11/23/24 07:53
Cardiovascular:: Regular rate and rhythm (paced)
Respiratory:: Bilateral: Coarse and Bilateral: Rales
Abdomen:: Distended and Soft
Bowel Sounds:: Normal
Extremity Edema:: +1: Bilateral:
Chávez Catheter: No
[2024-11-23 11:25] VITALS: BP 100/50
[2024-11-23 11:37] LABS: Glucose - Point of Care 260 mg/dl (70-99)
[2024-11-23] MEDS: NOVOLOG FLEXPEN-MODERATE RESISTANCE 5 UNITS SC (12:14)
--- NOTE | 2024-11-23 13:15 | CM ---
Met with pt bedside. IMM given and placed on chart. Pt still on IV lasix. DC plan unchanged
Plan: DC to home with [facility]
--- NOTE | 2024-11-23 13:56 | W.PN.ID1 ---
Date of Service
Date of Service: November 23, 2024
Today's Communication
Observe off antibiotics.
Assessment / Plan
Pulmonary infiltrate
Sputum culture with Pseudomonas aeruginosa
- s/p course cefepime
Pleural effusion
- s/p thoracentesis (11/18/2024); analysis not consistent with infection.
Lower GI bleed
- S/p sigmoidoscopy and cauterization
Renal insufficiency
CHF (EF ~ 35%)
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
Ascites; s/p recent paracentesis for 2L
DM
HLD
HTN
CAD; Hx WI
PAD
Hx prostate CA
V. tach
CHF with depressed EF
COPD
Recommendations:
White count normal. Patient remains afebrile.
Prior sputum culture with Pseudomonas, although difficult to differentiate colonizer versus true pathogen. Sputum with only moderate WBCs.
Completed course of cefepime on 11/21/2024.
Continue off antibiotics.
Continue with Acapella device, along with incentive spirometry.
Little more to offer from a Infectious Diseases standpoint.
Will see again at your request.
����������������������������������������������������������
Chief Complaint
-: Pneumonia and Other (GI bleed)
Subjective / Review of Systems
Review of Systems: No Fever, No Chills, Cough, No Sputum Production and No Abdominal Pain
Vital Signs / Physical Exam
Vital Signs
Vital Signs
Temp Pulse Resp BP Pulse Ox
97.9 F 66 16 100/50 97
11/23/24 11:25 11/23/24 11:25 11/23/24 11:25 11/23/24 11:25 11/23/24 11:25
Physical Exam
Constitutional: No Acute Distress, Comfortable and Non-toxic
Eyes: Sclera Anicteric
Pulmonary: Coarse and Non Labored
Gastrointestinal: Non Distended and Normal Bowel Sounds
Extremities: Edema; Negative Cyanosis or Erythema
Neurological: Awake and Alert
Psychological: Calm
Objective Data
Lab Data
Lab Results
11/23/24 07:14
11/23/24 07:14
PT 17.7 Sec (11.4-14.6) H 11/17/24 12:34
INR 1.41 11/17/24 12:34
APTT 34.5 Sec (23.4-35.0) 11/17/24 12:34
Estimated Creat Clear 31 ml/min 11/23/24 07:14
Lactic Acid 0.9 mmol/L (0.7-2.0) 11/17/24 12:34
Total Bilirubin 1.6 mg/dl (0.2-1.3) H 11/21/24 04:57
AST 144 U/L (17-59) H 11/21/24 04:57
ALT 200 U/L (0-50) H 11/21/24 04:57
Alkaline Phosphatase 121 U/L (38-126) 11/21/24 04:57
Most recent labs reviewed.
Micro Results:
11/22/24 12:52 Body Fluid Culture - Preliminary
Peritoneal Fluid No Growth After 18-24 Hours
Gram Stain - Preliminary
11/18/24 11:47 Body Fluid Culture - Preliminary
Pleural Fluid Gram Stain - Final
11/18/24 11:47 Body Fluid Culture - Final
Pleural Fluid No Growth After 72 Hours
Gram Stain - Final
11/15/24 10:25 Body Fluid Culture - Final
Peritoneal Fluid No Growth After 72 Hours
Gram Stain - Final
11/14/24 11:36 Respiratory Culture - Final
Sputum Pseudomonas aeruginosa
Gram Stain - Final
11/15/24 15:44 Nasal Screen MRSA (PCR) - Final
Nose MRSA not detected - performed by PCR methodology.
11/12/24 04:54 Urine Culture - Final
Urine No Significant Growth
Respiratory Culture Final 11/14/24
Few Pseudomonas aeruginosa
Few Usual Respiratory Daria
Organism 1 Pseudomonas aeruginosa
1. Pseudomonas aeruginosa
M.I.C. RX
--------- ---
Aztreonam <=4 S
Cefepime <=2 S
Ceftazidime 4 S
Ciprofloxacin <=0.25 S
Meropenem <=1 S
Piperacillin/Tazobactam <=8 S
Tobramycin <=2 S
Imaging:
11/14/2024 CT chest without IV contrast: moderate loculated left pleural effusion noted. Moderate left lower lobe consolidation concerning for pneumonia. Moderate lingular consolidation also concerning for pneumonia. Mild right lower lobe
consolidation likely atelectasis. Small right pleural effusion noted. Cardiomegaly noted. Please see full dictation for additional detail.
11/12/2024 ECHO (TTE): Severely dilated LV with moderately reduced systolic function. LVEF approximately 35%. Mild aortic stenosis. Mild to moderate tricuspid regurgitation.
--- NOTE | 2024-11-23 14:24 | W.PN.UPDATE ---
Update Note
Progress Note Update
Acute GI bleed requiring 2 units PRBC. �Secondary to radiation proctitis/angioectasia s/p APC.
Hemoglobin remained stable
On aspirin for 2 days
Was transferred from ICU to [facility], had a bowel movement noted some blood overlying stool that appeared fresh per nursing
Will have GI reassess
MARIA DOLORES on CKD stage IIIb-IV
? �Cardiorenal syndrome or as this is new baseline
Nephrology transitioned IV to oral diuretics
Reaasees volume and renal function tomorrow
Fluid restrict to 40oz
-Will ask nursing to elevate bilateral lower extremities and wrap
Monitor urinary output
Avoid nephrotoxins hypotension
CAD s/p stent and CABG
Continue beta-hemant aspirin
History of ventricular tachycardia s/p ICD
Continue amiodarone
Cirrhosis -compensated
Continue lactulose rifaximin
-Make Lactulose 10mg BID, goal bm 3-4
Continue Para's
- With how often he receives paracentesis may consider TIPS but would need to follow-up with outpatient finishing technician for this
Outpatient hepatology follow-up
Thrombocytopenia related to cirrhosis
Trend
History of prostate cancer s/p XRT
PAD/LBBB continue aspirin
[2024-11-23 15:20] VITALS: BP 114/46
[2024-11-23] MEDS: LASIX 80 MG PO (15:28)
[2024-11-23 16:50] LABS: Glucose - Point of Care 121 mg/dl (70-99)
[2024-11-23 19:09] VITALS: BP 102/48
[2024-11-23] MEDS: DUPHALAC/CHRONULAC 10 GRAMS PO (21:03)
[2024-11-23] MEDS: DUPHALAC/CHRONULAC PO (21:12)
[2024-11-23] MEDS: COREG PO (21:41)
[2024-11-23 21:45] LABS: Glucose - Point of Care 182 mg/dl (70-99)
[2024-11-23 23:15] VITALS: BP 117/52
[2024-11-24 03:25] VITALS: BP 113/49
[2024-11-24 05:13] VITALS: BMI 31.3
[2024-11-24 06:54] LABS: Glucose - Point of Care 116 mg/dl (70-99)
--- NOTE | 2024-11-24 07:05 | W.PN.HOSP.TC ---
Addendum entered and electronically signed by Nicolasa Gutierrez MD, Resident 11/24/24 15:37:
Eliquis in setting of hemorrhoids compounded hematochezia. Continued during stay due to medical benefit of anticoagulation outweighing risks.
Addendum entered and electronically signed by Jaswinder Cortes MD 11/24/24 13:01:
Acute GI bleed requiring 2 units PRBC. �Secondary to radiation proctitis/angioectasia s/p APC.
Hemoglobin remained stable
On aspirin for 2 days
Was transferred from ICU to [facility], had a bowel movement noted some blood overlying stool that appeared fresh per nursing
Will have GI reassess
MARIA DOLORES on CKD stage IIIb-IV
? �Cardiorenal syndrome or as this is new baseline
Nephrology transitioned IV to oral diuretics
Reaasees volume and renal function tomorrow
Fluid restrict to 40oz
-Will ask nursing to elevate bilateral lower extremities and wrap
Monitor urinary output
Avoid nephrotoxins hypotension
CAD s/p stent and CABG
Continue beta-hemant aspirin
History of ventricular tachycardia s/p ICD
Continue amiodarone
Cirrhosis -compensated
Continue lactulose rifaximin
-Make Lactulose 10mg BID, goal bm 3-4
Continue Para's
- With how often he receives paracentesis may consider TIPS but would need to follow-up with outpatient patient day coordinator for this
Outpatient hepatology follow-up
Thrombocytopenia related to cirrhosis
Trend
History of prostate cancer s/p XRT
PAD/LBBB continue aspirin
Original Note:
Today's Communication/Plan
-
Plan reviewed with attending.
Assessment / Plan
Assessment / Plan
Impression
Mr. Jonh Rodriguez is a 74-year-old male with past medical history significant for CAD status post CABG and stenting, peripheral arterial disease status post stenting, on dual antiplatelet therapy, CHF with depressed EF and history of VT status post
ICD on amiodarone, type 2 diabetes, chronic pulmonary hypertension, recent pneumonia with left-sided pleural effusion status post thoracenteses presented to the emergency department with bright red blood per rectum. Has heme positive red stool in
the ED.
Thoracentesis on 11/03/2024 where IR removed 1100 cc of serosanguineous transudative pleural fluid. He was started on a PPI in the ER and admitted to the IMU for further care. Cardiology was consulted given his history of CHF. Diuresis was started
and GI was also consulted as he has ascites. He does have a patient day coordinator, Dr. Butt, that he was told to follow-up for in the future for an endoscopy. On 11/13, patient was short of breath and was found to be wheezing.
11/17, patient developed brief hypotension after hematochezia and was transferred to ICU. In the ICU patient had stable hemoglobin and had another episode of hematochezia, small-volume. In view of COPD exacerbation and orthopnea he was treated
with steroids, bronchodilators and subsequently had a left-sided thoracentesis performed with 1450 mL of transudative fluid removed. Postprocedure respiratory status improved, he subsequently had a flexible sigmoidoscopy performed showing areas of
ectasia suspicious for radiation proctitis and received cautery. 11/19, patient was transferred to IMU. 11/22 pt downgraded to the floors. 11/23 transitioned to PO lasix.
Today, pt reports feeling well. Hgb stable and hemodynamically stable. Kidney function continues to be stable at BUN 78 Cr 2.3. GDMT continues to be held, plan to restart by outpt provider.
Plan to go home with VN upon discharge.
Plan
# GI bleed
Pt was on DAPT. Now only aspirin.
Hemoglobin stable at around 8.5 since weekend. baseline hemoglobin was 10.2 in August. Status post 1 unit PRBC on 11/12
Flexible sigmoidoscopy showed multiple angioectasias that bled on contact and were cauterized.
� No further bleeds. Hgb stable at 8.4. Follow CBC
� Pantoprazole IV 40 mg twice daily
# Thrombocytopenia
Likely causes are renal sufficiency and hepatic insufficiency with history of cirrhosis
Platelet count 61 today with no active bleed
- stopped Plavix
� Platelet transfusion if platelet count below 50,000 and active bleeding
� Platelet transfusion if platelet count below 10,000
# Acute hypoxemic respiratory failure
Acute HFrEF exacerbation
L sided pneumonia
ProBNP 2670. CT chest: Left lower lobe pneumonia, left pleural effusion secondary to CHF, decompensated cirrhosis. Sputum culture positive for Pseudomonas. Unclear if sputum culture Pseudomonas is a colonizer versus true pathogen.
- Appreciate ID -continue cefepime (transition from Zosyn for renal insufficiency) abx day 7. Observe off antibiotics. Vanc discontinued with negative MRSA screen
thoracentesis on 11-03-24-1100 cc of serosanguineous fluid-transudate. Repeat Thoracentesis in ICU 11/18, fluid removed 1450 ml, transudative. Negative cultures
- Was on daily lasix, which was held briefly yesterday for MARIA DOLORES. Lasix 80mg transitioned to PO. Urinating appropriately
COPD:
� PFTs 11/16/2024 demonstrated severe obstruction (COPD). Adjusted inhalers, which should be continued at home
� Outpatient MARION testing. Pulmonology appointment scheduled on 11/22/2024
- Lungs sound clear today. Initially examined before breathing treatments. No SOB or hypoxia. Continue spiriva and advair per pulm recs
- F/u outpt 12/20/24 with pulm
# Decompensated Cirrhosis.
Ascites and transaminitis
Ammonia elevated at 97 on admission. Given GIB, increased risk of hepatic encephalopathy
- Apreciate GI
- Aspirin restarted.
� If loose stool, decrease lactulose 20 g twice daily.
� alpha-fetoprotein normal
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
- Ongoing abd distension. will arrange for paracentesis before discharge
Follow-up with Dr. Butt as per patient day coordinator for endoscopy outpatient
# MARIA DOLORES on CKD
Likely cardiorenal
Creatinine 3 in the ED. currently stable at 2.4. Unclear true baseline. Potentially this could be his new baseline
- Hold Entresto, Metformin and Aldactone
- Appreciate cards and nephro; Lasix 80 mg twice daily now PO
- Nephrology determined pt is not a candidate for dialysis due to tenuous hemodynamics. Plan to continue diuresis
# HFrEF
# Ischemic cardiomyopathy. Coronary disease with history of stent, CABG in 1994
# Ventricular tachycardia, ventricular fibrillation. S/P-BiV ICD/pacer original placement 2007 with revision generator changed in 2013
Patient stated Sbp usually 88-95
- Holding Entresto and Aldactone for MARIA DOLORES although blood pressure okay to restart
� Coreg 6.25 mg P.o. twice daily
- Amio for Vtach
� Echo EF 35%
� GDMT: Entresto, SGLT2, spironolactone held due to MARIA DOLORES. Carvedilol 12.5 twice daily was recently lowered. Medtronic ICD. Hope to resume GDMT with resolution of MARIA DOLORES. Continue to hold until outpt electronic scale tester or PCP restarts.
� Cont Asp
- Appreciate cards
- F/u outpt with cardiology
# Microscopic hematuria.
- OP Urology F/U
History of nephrolithiasis
History of prostate cancer with history of radiation
CT-No nephrolithiasis or hydronephrosis on either side. No aggressive renal mass appreciated. The ureters are nondilated.The prostate gland is within normal limits.No significant bladder wall thickening or adjacent fat stranding.
# Hyperlipidemia- Statin
# Pulmonary hypertension
# Peripheral artery disease
# LBBB
# Ex Smoker
DVT prophylaxis-SCDs
Diet: 2 g sodium
Full code
Dispo: Patient came from home and is most interested in going home
� PT and OT recommended home with PT
Anticipated Discharge: Today
Subjective/Interval History
-
Date of Service: November 24, 2024
Pt reports feeling well this morning. Denies SOB, abdominal pain. He reports his loose BM have improved and slowed down with reduced urgency. Urinating appropriately.
Objective Data
-
Labs:
Laboratory Results
11/24/24
06:38
WBC Pending
Hgb Pending
Hct Pending
Plt Count Pending
Sodium Pending
Potassium Pending
Chloride Pending
Carbon Dioxide Pending
BUN Pending
Creatinine Pending
Glucose Pending
Calcium Pending
Vital Signs:
Vital Signs
Temp Pulse Resp BP Pulse Ox
98.2 F 65 20 113/49 92
11/24/24 03:25 11/24/24 03:25 11/24/24 03:25 11/24/24 03:25 11/24/24 03:25
I&O
11/23/24 11/24/24 11/25/24
06:59 06:59 06:59
Intake Total 720 / 720 1200 / 1200
Output Total 1475 / 1475 2354 / 2354
Balance -755 / -755 -1154 / -1154
Review of Systems
-
History Source: Patient
All other systems: Reviewed and negative
Physical Exam
-
General: Well Developed, Well Nourished, No Apparent Distress and Comfortable
HEENT: Normocephalic, Atraumatic, Moist Mucous Membranes, Anicteric and [place] Conjunctivae
Respiratory: Clear to Auscultation and Non Labored Respirations
Cardiac: Regular Rhythm and S1/S2
GI: Soft, Nontender and Distended (no change)
Musculoskeletal: Other (2+ pitting edema, stable)
Skin: Warm and Dry
Neuro: AO x 3, No Motor Deficits and Nonfocal/Grossly Intact
Psych: Calm
[2024-11-24 07:30] LABS: Hematocrit 25.6 % (39.0-52.0); Hemoglobin 8.3 g/dL (13.0-18.0); Mean Corp Hgb Conc. 32.4 g/dL (33.0-37.0); Mean Corpuscular Volume 100.0 fL (80.0-94.0); Platelet Count 57 10^3/uL (130-400); Red Cell Dist. Width 16.2 % (11.5-14.5)
[2024-11-24 07:34] LABS: Blood Urea Nitrogen 78 mg/dl (9-20); Calcium 8.5 mg/dl (8.4-10.2); Carbon Dioxide 25 mmol/L (22-30); Chloride 104 mmol/L (98-107); Estimated Creatinine Clearance 32 ml/min; Glucose 102 mg/dl (70-99); Potassium 3.7 mmol/L (3.5-5.1); Sodium 135 mmol/L (135-145); eGFR 28.71
[2024-11-24] MEDS: ADVAIR HFA 230/21 MCG INHALER 2 PUFF INH (08:04)
[2024-11-24] MEDS: SPIRIVA RESPIMAT 2.5 MCG 2 PUFF INH (08:04)
[2024-11-24 08:17] VITALS: BP 115/51; BP 120/53; BP 121/62; PULSE 65; PULSE 66; PULSE 67
[2024-11-24] MEDS: NOVOLOG FLEXPEN-MODERATE RESISTANCE SC (08:26)
[2024-11-24] MEDS: XIFAXAN 550 MG PO (08:27)
[2024-11-24] MEDS: COREG 6.25 MG PO (08:27)
[2024-11-24] MEDS: LASIX 80 MG PO (08:27)
[2024-11-24] MEDS: ASPIR LOW (ENTERIC COATED) 81 MG PO (08:27)
[2024-11-24] MEDS: PACERONE 200 MG PO (08:27)
[2024-11-24] MEDS: MUCINEX 600 MG PO (08:29)
[2024-11-24] MEDS: DUPHALAC/CHRONULAC 10 GRAMS PO (08:30)
[2024-11-24] MEDS: PROTONIX IV 40 MG IV (08:30)
[2024-11-24] MEDS: NSS (PRESERVATIVE FREE) 10 ML IV (08:31)
[2024-11-24] MEDS: NOVOLOG FLEXPEN 5 UNITS SC ×2 (08:43→12:29)
--- NOTE | 2024-11-24 10:38 | W.PN.NEPH.PH ---
Today's Communication / Plan
-
Continue p.o. Lasix
Assessment/Plan
-
Assessment
MARIA DOLORES (B/L cr 1.9 dating back 2021)
hyponatremia
Anemia
PNA
pancytopenia
HFrEF 35% with Moderate TR
SOB
cirrhosis
left pleural effusion
mild ascites
Plan
Creatinine unchanged to 2.4 urine output around 1300 cc on IV lasix
abx completed
Holding Entresto, Aldactone ,hemodynamically more stable
Status post left thoracentesis 11/03/2024 , repeat thoracentesis 11/18
s/p para 2L 11/15
Status post: Colonoscopy reviewed
Previous long discussion with the patient and his again today about what we are from fluid standpoint. I discussed that we either stay conservative which we will accomplish much we are aggressive with the diuretics to help improve clinical
with the understanding that his creatinine will likely increase and may have to live a much lower GFR but we again discussed hemodialysis as well pending his response
Unfortunately this patient would not be an appropriate dialysis candidate given his hemodynamic instability in the setting of both cirrhotic and cardiac failure
They understand the situation and realize we are not making much progress
Weights stable on p.o. Lasix
His iron saturation is 25% adequate
Started Epogen subcutaneously continue weekly
No changes made today volume status is stable
-
-
Date of Service: November 24, 2024
CC / HPI / ROS
-
Chief Complaint:
MARIA DOLORES
History of Present Illness:
Na stable
Creatinine unchanged to 2.4
BP stable low
Review of Systems:
no CP/SOB
Nonoliguric around 1300 cc
Weights unchanged
Labs
-
Labs:
WBC 6.2 10^3/uL (4.8-10.8) 11/24/24 06:38
RBC 2.56 10^6/uL (4.70-6.10) L 11/24/24 06:38
Hgb 8.3 g/dL (13.0-18.0) L 11/24/24 06:38
Hct 25.6 % (39.0-52.0) L 11/24/24 06:38
Plt Count 57 10^3/uL (130-400) L 11/24/24 06:38
Sodium 135 mmol/L (135-145) 11/24/24 06:38
Potassium 3.7 mmol/L (3.5-5.1) 11/24/24 06:38
Chloride 104 mmol/L (98-107) 11/24/24 06:38
Carbon Dioxide 25 mmol/L (22-30) 11/24/24 06:38
BUN 78 mg/dl (9-20) H 11/24/24 06:38
Creatinine 2.3 mg/dL (0.7-1.3) H 11/24/24 06:38
eGFR 28.71 11/24/24 06:38
Glucose 102 mg/dl (70-99) H 11/24/24 06:38
Calcium 8.5 mg/dl (8.4-10.2) 11/24/24 06:38
Ooa-Y-Mmnigxlydku Pept 2670 pg/ml 11/12/24 11:29
Albumin 3.0 g/dl (3.5-5.0) L 11/21/24 04:57
Physical Exam
-
Vital Signs:
Vital Signs
Temp Pulse Resp BP Pulse Ox
97.3 F 67 18 121/62 95
11/24/24 08:17 11/24/24 08:27 11/24/24 08:17 11/24/24 08:27 11/24/24 08:17
Cardiovascular:: Regular rate and rhythm (paced)
Respiratory:: Bilateral: Coarse and Bilateral: Rales
Abdomen:: Distended and Soft
Bowel Sounds:: Normal
Extremity Edema:: +1: Bilateral:
Chávez Catheter: No
[2024-11-24 11:08] VITALS: BP 103/60
[2024-11-24 11:51] LABS: Glucose - Point of Care 199 mg/dl (70-99)
--- NOTE | 2024-11-24 11:56 | W.DCSUMMARY ---
Discharge Summary
Discharge Data
Date of Admission: 11/12/24
Date of Discharge: 11/24/24
-
Pending Results: No
Hospital Course
Mr. Jonh Rodriguez is a 74-year-old male with past medical history significant for CAD status post CABG and stenting, peripheral arterial disease status post stenting, on dual antiplatelet therapy, CHF with depressed EF and history of VT status post
ICD on amiodarone, type 2 diabetes, chronic pulmonary hypertension, recent pneumonia with left-sided pleural effusion status post thoracenteses 8 days ago presented to the emergency department with bright red blood per rectum. Has heme positive red
stool in the ED.
Thoracentesis on 11/03/2024 where IR removed 1100 cc of serosanguineous transudative pleural fluid. He was started on a PPI in the ER and admitted to the IMU for further care. Cardiology was consulted given his history of CHF. Diuresis was started
and GI was also consulted as he has ascites. He does have a education and training manager, Dr. Butt, that he was told to follow-up for in the future for an endoscopy.
11/11 Pt was given pRBCs for low Hgb from BRBPR hg 9. Aspirin and plavix held. IV PPI continued. Held GDMT in setting of MARIA DOLORES. Cough noted, pulmonary consulted and breathing treatments prescribed. Diuresed. Asterixis noted, started on lactulose and
rifaximin. Metform held in setting of MARIA DOLORES on CKD, insulin sliding scale started. Ammonia 97, pro BNP 2670, Cr 30 BUN 70
11/12 Echo demonstrated EF 35% with mild-moderate tricuspid regurgitation, estimated PASP 33mmHg. CT demonstrated ascites, cirrhosis, L pleural effusion with RLL consolidation possibly old. Amiodarone continued from home.
On 11/13, patient was short of breath and was found to be wheezing, pulmonology consulted. Cr increased. Restarted aspirin, continuing to hold plavix.
11/[address] ordered for wheezing. Cr stabilized around 2.5. Sputum cultures collected, budesonide started for continued cough and wheeze.
11/15 paracentesis 2L transduative SAAG>1.1 suggestive of ascites. Sputum positive for pseudomonas, transitioned from zosyn and vancomycin to cefepime.
11/17, patient developed brief hypotension after hematochezia and was transferred to ICU from bout of loose bowels and large amounts of clots and blood. In the ICU patient had stable hemoglobin and had another episode of hematochezia, small-volume.
CT with PO contrast demonstrated no changes. In view of COPD exacerbation and orthopnea he was treated with steroids, bronchodilators and subsequently had a left-sided thoracentesis performed with 1450 mL of transudative fluid removed.
Postprocedure respiratory status improved, he subsequently had a flexible sigmoidoscopy performed showing areas of ectasia suspicious for radiation proctitis and received cautery.
11/19, patient was transferred to IMU. Discussion with cardiology regarding permanently stopping plavix in setting of GI bleed and both cardiac and vascular surgeries are remote. Continuing thrombocytopenia in setting of cirrhosis.
11/21 albumin x3. EPO given. Continued to diurese. Aspirin restarted. Last day of abx and steroids.
Paracentesis 11/22 1100ml.
11/22 pt downgraded to the floors. 11/23 transitioned to PO lasix.
11/24 pt reports feeling well. Hgb stable at 8.3 and hemodynamically stable. Kidney function continues to be stable at what seeems to be new normal BUN 78 Cr 2.3. GDMT continues to be held, plan to restart by outpt provider. Advair and spiriva
continued.
Discharge Plan
-
Patient Disposition: Home (Routine Discharge)
Discharge Diagnosis/Procedures: Primary:
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
Acute kidney injury due to cardiorenal syndrome
Hepatic insufficiency due to heart failure
Pleural effusion
Ascites
Secondary:
COPD
Thrombocytopenia
Acute hypoxemic respiratory failure
Ischemic cardiomyopathy
Condition: Fair
Diet: Low Cholesterol, 2 Gram Sodium and Diabetic, Carb Controlled
Activity: As tolerated
Driving Restrictions: As prior to admission
Other Services: VN
Specialty Instructions: Weigh Daily- Call MD for wt gain/loss 3 lbs overnight/5 lbs in 1 week
Referrals:
Ronald Butt MD [Non-Admitting Privileges, Gastroenterology] - in one week
Referral Note: Endoscopy to evaluate for esophageal varices
Shanel Mendenhall MD [Family Provider, Family Practice]
Emma Montesinos DO [Active, Pulmonary Medicine]
Referral Note: Has appt 11/22/24, keep
Additional Discharge Medication Instructions: Please follow-up with Dr. Butt for endoscopy to evaluate for esophageal varices and to discuss amiodarone dosing.
Follow up with your primary care in 3 days.
Once you have met with Dr. Butt, please follow up with your bar back regarding both the amiodarone dosing and lasix. We recommend finding a health physicist to follow your kidney function that works closely with your bar back to further manage
your kidneys.
The radiologist also recommended low-dose chest CT to screen for lung cancer if you have COPD. Please follow-up with your primary care doctor or plate hanger to determine if lung cancer screening is appropriate. You have a pulmonology appointment
scheduled with Dr. Stockton 12/20/2024 at 9am.
Stop taking Plavix. Do not take spironolactone, metformin, or Entresto until your PCP or bar back recommends restarting it after follow up.
We have increased your lasix dose to 80mg twice a day.
Prescriptions:
New
fluticasone propion-salmeterol 230-21 mcg/actuation Hfa Aerosol Inhaler
2 puff inhalation R BID 30 Days Qty: 12 0RF
furosemide 80 mg Tablet
80 mg PO BID@0800,1600 30 Days Qty: 60 0RF
lactulose 10 gram/15 mL Solution
10 g PO BID 30 Days Qty: 900 0RF
Xifaxan 550 mg Tablet
550 mg PO BID 30 Days Qty: 60 0RF
Spiriva Respimat 2.5 mcg/actuation Mist
2 puff inhalation R DAILY 30 Days Qty: 30 0RF
(DME) blood-glucose meter [ReliOn All-In-One Meter] Kit
Qty: 1 0RF
Rx Instructions:
As Directed
(DME) lancets-blood glucose strips 30 gauge combo pack
See Rx Instructions .Route Qty: 200 0RF
Rx Instructions:
As directed
insulin lispro [Humalog KwikPen Insulin] 100 unit/mL Insulin Pen
5 unit SC AC 30 Days Qty: 90 0RF
Continued
ascorbic acid (vitamin C) [Vitamin C] 500 MG tablet
500 mg PO DAILY
folic acid 0.4 MG tablet
0.4 mg PO HS Qty: 0 0RF
aspirin 81 MG tablet,delayed release (DR/EC)
81 mg PO HS Qty: 0 0RF
Patient Comments:
patient received 4 baby asa this am
multivitamin with folic acid [Tab-A-Petar] 1 TABLET tablet
1 tab PO HS Qty: 0 0RF
albuterol sulfate 1.25 mg/3 mL Solution For Nebulization
1.25 mg INHALATION DAILY
ferrous sulfate 325 mg (65 mg iron) Capsule, Extended Release
325 mg PO DAILY
amiodarone [Pacerone] 200 MG tablet
200 mg PO DAILY
rosuvastatin 20 MG tablet
10 mg PO HS 30 Days Qty: 30 0RF
Changed
carvedilol 12.5 MG tablet
6.25 mg PO BID 30 Days Qty: 60 0RF
Discontinued
spironolactone 25 MG tablet
25 mg PO DAILY
clopidogrel 75 MG tablet
75 mg PO DAILY Qty: 30 1RF
metformin 500 MG tablet extended release 24 hr
500 mg PO BID
sacubitril-valsartan [Entresto] 24-26 mg Tablet
1 tab PO BID
furosemide 20 MG tablet
40 mg PO DAILY
Discharge Orders:
Discharge Patient (As Directed); Ordered 11/24/24
Ordered By: Nicolasa Gutierrez
Discharge Date and Time
Print Language: POLISH
--- NOTE | 2024-11-24 12:01 | PTCARENOTE ---
11/24/2024 DIABETES EDUCATION CONSULT
I met with patient and his to review diabetes management. He has Type 2 diabetes, previously on Metformin 500 mg BID. He states his last HbA1c was approximately 6%. I explained that the providers will now prescribe insulin instead of Metformin
due to poor kidney function.
I educated on physiology of T2D, organ damage, managing with medications, monitoring BG, nutrition, activity, sleep and managing stress. I reinforced signs of hyperglycemia, hypoglycemia and hypoglycemia protocol; BS parameters and recommended HbA1c
goals. I provided written material with a glucose tracker, medic alert bracelet and outpatient DSME program. I provided patient with a [employer] Next Gen glucometer sample kit. He declined demonstration as he has checked his BS in the past.
Currently does not check his BS.
I educated and demonstrated on insulin injection technique, timing, and storage. Discussed rapid acting insulin; onset/peak/duration, and encouraged him to administer his own injections with RN supervision while admitted. Provided nurse with
insulin pen needles to assist member with self administration. Discussed normal target glucose ranges and a monitoring schedule 15 minutes before each meal when prescribed Novolog.
Encouraged patient to follow up with his PCP for post d/c appointment and to monitor medication and blood glucose levels. Provided list of endocrinologists if desired, to contact insurance company to verify in network status. Requested a
prescription for blood sugar testing supplies to be sent to his pharmacy on record. Patient verbalized understanding.
[2024-11-24] MEDS: NOVOLOG FLEXPEN-MODERATE RESISTANCE 1 UNITS SC (12:28)
--- NOTE | 2024-11-24 12:53 | W.PN.CD ---
Addendum entered and electronically signed by Misha Montalvo MD 11/24/24 14:17:
I saw and examined the patient.
The LINUX SYSTEMS ANALYST's note was reviewed and I agree with the note.
Comment:
74-year-old man with ventricular tachycardia (on amiodarone), coronary artery disease, HFrEF, cirrhosis, and prior prostate cancer who presented for bright red blood per rectum due to radiation proctitis. Course complicated by MARIA DOLORES.
Physical exam: RRR, no murmurs, no lower extremity edema, clear lungs
Discharge today with amiodarone. He will discuss with his rest room matron. If he cannot continue it, we will consider VT ablation.
Original Note:
Today's Communication / Plan
-
Patient for d/c today- he knows he needs close follow-up with his primary mint wafer depositor after d/c. Dr. Mayorga's EP consult was printed and given to patient to bring to f/u visit. He is also instructed to review amiodarone with his rest room matron as
below. He understands. Nephrology has been managing diuretics. He does not appear volume overloaded.
Impression / Plan
-
Background: 74M with ventricular tachycardia (on amiodarone, Medtronic ICD), coronary artery disease, prior LA, status post bypass, HFrEF, hypertension, hypercholesterolemia, PAD, cirrhosis of the liver, type 2 diabetes mellitus, and prior prostate
cancer presented to the emergency department with a chief complaint of BRBPR.
Primary Child Study Team Director: Dr. Damon ([facility])
Anemia with GI bleed from LGI bleed from radiation proctitis, s/p APC
-2 unit PRBC transfused this admit
Antiplatelet therapy
-Admitted on DAPT
-Home on just ASA 81 daily
Amiodarone
- See EP consult
- Per Dr. Mayorga, if his rest room matron prefers he stop Amio then he stop it and meet with Dr. Silva to see if he is an acceptable VT ablation candidate. If not then would add renally dosed sotalol (probably start at 120 q 48 hours)
HFrEF, at baseline from an ischemic cardiomyopathy, EF 35%
- Dry weight was felt to be 100 kg but seems good with lower weight
- Now 98.9 kg
- renal has been managing diuretics since he presented with MARIA DOLORES
- GDMT as tolerated:
-KYLER/ARB/ARNI: Entresto on hold with MARIA DOLORES
-SGLT2 inhibitor: None with MARIA DOLORES
-Aldosterone agonist: Spironolactone on hold with MARIA DOLORES
-Beta hemant: Carvedilol 6.25 mg BID (recently lowered) resumed 11/19
-Isosorbide/Hydralazine:�Not started due to low BP
-ICD: Implanted ([employer])
Pleural effusion, left
- Moderate on CXR in ER, limited target for thoracentesis by ultrasound
- Status post left thoracentesis 11/03/2024 for 1100 mL - transudative by lights
Cirrhosis, with ascites
- Status post paracentesis for 2 L 11/15/2024
- Has an outpatient rest room matron
- See amiodarone comments above
MARIA DOLORES
- BUN 35, creatinine 1.9 in August
- 3.0 on admission now 3.0 down to 2.2 and then trending upward towards 2.5- today is 2.3
Pseudomonas, on sputum culture:
-ID on the case
Thrombocytopenia, chronic => likely from cirrhosis
-Will go home on ASA 81 daily and no Plavix
-needs f/u as OP
CAD, s/p CABG
- Stable without chest pain
- Cardiac PET last month consistent with inferior and apical scar. No reversible defects.
- Continue statin, ASA
Ventricular tachycardia
- None on tele
- Prior history of VT and ICD shocks in 2020 and at that time amiodarone was increased to 400 mg a day and he states he had been on 400 mg until about 1 month ago when his primary mint wafer depositor reduced it.
- Amiodarone use. History as noted above. Rhythms currently appear stable. Challenging issues with patient with underlying liver disease. Will also need additional input from GI. Of note patient sees rest room matron Dr. Butt as an outpatient.
- Continue amiodarone and carvedilol
- s/p Medtronic ICD
- See EP Consult:
- If his rest room matron prefers he stop Amio then he stop it and meet with Dr. Silva to see if he is an acceptable VT ablation candidate. If not then would add renally dosed sotalol (probably start at 120 q 48 hours)
Mild , mild/moderate TR, outpatient follow up
Type 2 diabetes mellitus, per primary service
Cirrhosis of the liver, follows with Dr. Butt
PAD, follows with Dr. Orr L femoral endarterectomy (2019), chronically occluded superficial femoral arteries bilaterally
Carotid artery stenosis, high-grade, >90% bilaterally, followed by Vascular
[facility]
Subjective:
Feeling fine, happy to be going home
No SOB
Physical Exam
Vital Signs/Labs
Vital Signs
Temp Pulse Resp BP Pulse Ox
98.7 F 70 18 103/60 96
11/24/24 11:08 11/24/24 11:08 11/24/24 11:08 11/24/24 11:08 11/24/24 11:08
11/23/24 11/24/24 11/25/24
06:59 06:59 06:59
Actual Weight 98.911 kg
11/24/24 06:38
11/24/24 06:38
PT 17.7 Sec (11.4-14.6) H 11/17/24 12:34
INR 1.41 11/17/24 12:34
APTT 34.5 Sec (23.4-35.0) 11/17/24 12:34
Magnesium 2.6 mg/dl (1.6-2.3) H 11/21/24 04:57
11/12/24
11:29
[id number] Pept 2670
Physical Exam
Constitutional: No acute distress
EENT: Anicteric
Cardiovascular: Rhythm & rate is regular and Pedal edema present (improved per patient; mild BLE edema)
Respiratory: Respiratory effort normal and Crackles Absent
Neuro/Psych: AO x 3
Data Reviewed
-
Date of Service: November 24, 2024
EKG: Other (a paced)
Labs: Labs Reviewed by me
--- NOTE | 2024-11-24 13:42 | CM ---
Met with pt and at bedside. They are aware VN will call them at home to set up initial visit.
Pt is discharged to home with VN.
== END 2024-11-24 13:45 | disposition home health service (06) | DRG 377 ==
LOC: 4 EAST ACU 01:36
PROVIDERS: Internal Medicine; Nurse Practitioner; Radiology Diagnostic Radiology; Radiology Vascular & Interventional Radiology; Specialist; Student in an Organized Health Care Education/Training Program; ADMITTING PHYSICIAN Internal Medicine; ATTENDING PHYSICIAN Hospitalist; CONSULT PHYSICIAN Internal Medicine Cardiovascular Disease; CONSULT PHYSICIAN Internal Medicine Critical Care Medicine; CONSULT PHYSICIAN Internal Medicine Gastroenterology; CONSULT PHYSICIAN Internal Medicine Infectious Disease; CONSULT PHYSICIAN Specialist; EMERGENCY PHYSICIAN Student in an Organized Health Care Education/Training Program; FAMILY PHYSICIAN Student in an Organized Health Care Education/Training Program; OTHER PHYSICIAN Internal Medicine Cardiovascular Disease
PROC: 30233N1 Transfusion of Nonautologous Red Blood Cells into Peripheral Vein, Percutaneous Approach (ICD-10-PCS; 2024-11-12)
PROC: 0W9G3ZZ Drainage of Peritoneal Cavity, Percutaneous Approach (ICD-10-PCS; 2024-11-15)
PROC: 4A19X1Z Monitoring of Respiratory Capacity, External Approach (ICD-10-PCS; 2024-11-16)
PROC: 0D5N8ZZ Destruction of Sigmoid Colon, Via Natural or Artificial Opening Endoscopic (ICD-10-PCS; 2024-11-18)
PROC: 0W9B3ZZ Drainage of Left Pleural Cavity, Percutaneous Approach (ICD-10-PCS; 2024-11-18)
DX: K55.21 Angiodysplasia of colon with hemorrhage (principal); J96.01 Acute respiratory failure with hypoxia; D61.818 Other pancytopenia; I13.0 Hypertensive heart and chronic kidney disease with heart failure and stage 1 through stage 4 chronic kidney disease, or unspecified chronic kidney disease; I50.42 Chronic combined systolic (congestive) and diastolic (congestive) heart failure; K52.0 Gastroenteritis and colitis due to radiation; N17.9 Acute kidney failure, unspecified; R18.8 Other ascites; J44.1 Chronic obstructive pulmonary disease with (acute) exacerbation; E87.1 Hypo-osmolality and hyponatremia; K62.7 Radiation proctitis; Y84.2 Radiological procedure and radiotherapy as the cause of abnormal reaction of the patient, or of later complication, without mention of misadventure at the time of the procedure; Z79.84 Long term (current) use of oral hypoglycemic drugs; I25.10 Atherosclerotic heart disease of native coronary artery without angina pectoris; Z95.1 Presence of aortocoronary bypass graft; Z87.01 Personal history of pneumonia (recurrent); Z95.810 Presence of automatic (implantable) cardiac defibrillator; I27.20 Pulmonary hypertension, unspecified; Z95.820 Peripheral vascular angioplasty status with implants and grafts; E11.51 Type 2 diabetes mellitus with diabetic peripheral angiopathy without gangrene; J44.9 Chronic obstructive pulmonary disease, unspecified; Z79.02 Long term (current) use of antithrombotics/antiplatelets; E11.22 Type 2 diabetes mellitus with diabetic chronic kidney disease; N18.32 Chronic kidney disease, stage 3b; K72.90 Hepatic failure, unspecified without coma; I25.5 Ischemic cardiomyopathy; I07.1 Rheumatic tricuspid insufficiency; Z87.891 Personal history of nicotine dependence; Z85.46 Personal history of malignant neoplasm of prostate; I25.2 Old myocardial infarction; Z79.82 Long term (current) use of aspirin; Z92.3 Personal history of irradiation; D69.59 Other secondary thrombocytopenia; E03.9 Hypothyroidism, unspecified; E78.2 Mixed hyperlipidemia; E87.5 Hyperkalemia; K59.00 Constipation, unspecified; Z79.899 Other long term (current) drug therapy; Z80.9 Family history of malignant neoplasm, unspecified; Z82.49 Family history of ischemic heart disease and other diseases of the circulatory system; Z83.3 Family history of diabetes mellitus; Z87.442 Personal history of urinary calculi; Z95.5 Presence of coronary angioplasty implant and graft
CPT/HCPCS: 36430; 49083; 71045; 71250; 74176; 76604; 80048; 80053; 81003; 81015; 82042; 82105; 82140; 82150; 82728; 82805; 82945; 82962; 83036; 83540; 83550; 83605; 83615; 83690; 83735; 83880; 84157; 84300; 84478; 85014; 85018; 85025; 85027; 85610; 85730; 86850; 86900; 86901; 86920; 87015; 87070; 87077; 87086; 87186; 87205; 87641; 88112; 88305; 89051; 92610; 93005; 93306; 94060; 94640; 94669; 96365; 96366; 97116; 97162; 97166; 97530; 97535; 99291; P9016; P9047; Q5106; Q9950

== ENCOUNTER 2024-12-02 22:39 | Inpatient (IN) | payer MEDICARE, OTHER, SELFPAY ==
[2024-12-02 18:31] VITALS: BP 97/50
[2024-12-02 18:32] VITALS: BMI 33.2
--- NOTE | 2024-12-02 18:50 | ED.GENMED ---
History of Present Illness
General
Chief Complaint: Breathing Problem
Source: patient, records and spouse
Exam Limitations: none
Time Seen by Provider: 12/02/24 18:39
Nursing documentation reviewed up to this point in time: agreed with
History of Present Illness
History of Present Illness:
74-year-old male with extensive medical history including hypertension, hyperlipidemia, PAD status post stenting, CAD status post CABG, CHF with reduced ejection fraction, pacemaker/ICD, diabetes who presents to the emergency department via EMS for
evaluation of shortness of breath. Of note, patient was just admitted to this hospital 11/12 until 11/24�presented with bright red blood per rectum but admission was complicated by CHF requiring diuresis, large pleural effusion requiring
thoracentesis, ascites requiring paracentesis; Plavix discontinued due to GI bleeding. He presents to the ER today for evaluation of shortness of breath that he says has been worsening basically since discharge from the hospital. He says he has
had persistent nagging cough. He denies any chest pain. Denies abdominal pain. No vomiting. He has had swelling in the legs he does not feel it is any worse than usual. He discussed his symptoms with his rental coordinator who recommended he come to
the ER�she did have an outpatient x-ray that apparently showed return of pleural effusion. Prior to coming to the emergency room his says that he had an episode of bloody stools which is the first time since discharge from the hospital.
Review of Systems
Review of Systems
All Other Systems: ROS reviewed and negative except as documented in HPI and ROS
Constitutional: Reports fatigue; Denies fever
Respiratory: Reports cough and trouble breathing
Cardiac: Denies chest pain
ABD/GI: Reports nausea and bloody stools; Denies abdominal pain or vomiting
: Denies flank pain
Musculoskeletal: Reports edema; Denies neck pain or back pain
Neurological: Denies dizzy or headache
Phy Exam
Physical Exam
Physical Exam:
General: Awake, alert, nontoxic
Head: Normocephalic, atraumatic
Eyes: Conjunctiva normal, sclera anicteric
Throat: Airway intact, handling secretions
Neck: Trachea midline, no JVD noted
Lungs: Breathing comfortably no respiratory distress, no hypoxia or tachypnea; on lung auscultation his breath sounds are diminished left mid and lower lung zones
Heart: Regular rate and rhythm, no murmurs, gallops, or rubs appreciated; pacemaker noted
Abd: Soft, mildly distended, nontender
Rectal: Black/maroon stool noted on rectal exam heme positive
Neuro: Grossly intact
Skin: no rash
Extremities: +2 pitting edema in the legs bilaterally; extremities are warm and well-perfused
Scores
Heart Failure Risk
Heart Failure Risk Score: Not Applicable
Heart Score for Chest Pain Patients
STEMI patient?: Not applicable
Withdrawal Assessment of Alcohol
Withdrawal Assessment Completed?: Not applicable
Course
Orders/Labs/Results
Orders:
Orders
12/02/24 18:28
EKG [Electrocardiogram (*1)] Stat
Reason for Study: Shortness of Breath
EKG- Treatment ONCE
12/02/24 18:38
EKG [Electrocardiogram (*1)] Stat
Reason for Study: Shortness of Breath
EKG- Treatment ONCE
12/02/24 18:48
Urinalysis Reflex To Culture Urgent
12/02/24 18:49
Interrogate Pacemaker- Treatment ONCE
12/02/24 19:06
Ondansetron Injectable [Zofran] 4 mg IV NOW STA
12/02/24 19:09
Pantoprazole [Protonix IV] 80 mg IV NOW STA
12/02/24 19:11
COVID-19 Antigen Urgent
Source: Nasal Swab
Complete Blood Count/With Diff Urgent
Comprehensive Metabolic Panel Urgent
Lactate Level [Lactic Acid] Urgent
NT-proBNP Urgent
PTT Urgent
Prothrombin Time Urgent
Troponin I Urgent
Influenza A+B Rapid Molecular Urgent
RAINER Source: Nasal Swab
Specimen Description:
12/02/24 19:59
Add On- LAB Urgent
Tests Added?: ammonia level
12/02/24 20:04
Venous Blood Gas Urgent
%Oxygen/Room Air: 96
12/02/24 20:05
Ammonia Urgent
Abnormal Lab Results
12/02/24 12/02/24 12/02/24
19:11 20:04 20:05
RBC 2.78 L 10^6/uL
(4.70-6.10)
Hgb 9.1 L g/dL
(13.0-18.0)
Hct 28.3 L %
(39.0-52.0)
MCV 101.8 H fL
(80.0-94.0)
MCH 32.7 H pg
(27.0-31.0)
MCHC 32.2 L g/dL
(33.0-37.0)
RDW 17.4 H %
(11.5-14.5)
Plt Count 58 L 10^3/uL
(130-400)
MPV 10.6 H fL
(7.4-10.4)
Absolute Lymphs (auto) 0.3 L 10^3/uL
(1.2-3.4)
Absolute Monos (auto) 0.7 H 10^3/uL
(0.1-0.6)
Neutrophils % 81.9 H %
(42.2-75.2)
Lymphocytes % 4.5 L %
(20.5-51.1)
Monocytes % 12.0 H %
(1.7-9.3)
PT 16.8 H Sec
(11.4-14.6)
VBG pO2 62 H mmHg
(30-50)
BUN 87 H mg/dl
(9-20)
Creatinine 2.1 H mg/dL
(0.7-1.3)
Glucose 132 H mg/dl
(70-99)
Total Bilirubin 2.3 H mg/dl
(0.2-1.3)
AST 135 H U/L
(17-59)
ALT 150 H U/L
(0-50)
Alkaline Phosphatase 195 H U/L
(38-126)
Ammonia 239 H umol/L
(9-30)
Troponin I 0.038 H* ng/ml
Albumin 3.3 L g/dl
(3.5-5.0)
12/02/24 19:11
12/02/24 19:11
Vital Signs
Initial and Last Documented VS:
Initial Vital Signs
Temp
36.5 C
12/02/24 18:28
Last Documented Vital Signs
Temp Pulse Resp BP Pulse Ox
36.5 C 60 11 100/48 98
12/02/24 18:28 12/02/24 20:30 12/02/24 20:30 12/02/24 20:00 12/02/24 20:30
MDM/Problems Addressed
Differential Diagnosis Includes:
Shortness of breath: Anemia, pleural effusion, CHF, pneumonia
Rectal bleeding: Ulcer, AVM, diverticular bleed, etc
MDM/Problems Addressed:
74-year-old male with history as documented in recent complicated admission presents to the ER with worsening shortness of breath and continued cough since hospital discharge also had an episode of bloody stools this evening prior to coming to the
ER. Soft blood pressure 97/50, heart rate 80s, no tachypnea or hypoxia, no fever. He does have diminished breath sounds on the left and significant edema in the legs. He did have black/maroon stool on rectal exam. Plan to place large-bore IV
send labs including CBC and a CMP, coags, type and screen. Will check troponin and proBNP. Will interrogate device. His initial EKG was erroneously read by the computer as a STEMI�on my review it is not consistent with a STEMI is unchanged from
his prior it looks like machine did not appropriately read ventricular paced rhythm, repeat shows AV paced rhythm. He did have an outpatient x-ray earlier today which I reviewed and shows a moderate size left pleural effusion. Will treat with IV
PPI for GI bleeding. Anticipate admission pending initial assessment.
CBC shows stable hemoglobin 9.1�I did obtain blood consent in case of worsening bleeding or anemia. Chemistry shows stable CKD. LFTs elevated but stable. On reassessment he is slightly more lethargic, says that he has not been sleeping well
recently. Nevertheless given his recent respiratory symptoms we will check venous blood gas. Added ammonia level as well.
VBG unremarkable, ammonia level is markedly elevated at 239. He has been on lactulose. was prescribed rifaximin but it was not covered and so has not been taking it since discharge. Will restart rifaximin. Case discussed with hospitalist
for admission.
Chronic conditions affecting care:
CHF, GI bleeding
*Radiology
Radiology exam reviewed: radiology read reviewed (Reviewed outpatient chest x-ray)
*Pulse Oximetry
SaO2: 94
Oxygen Mode of Delivery: Room air
Patient hypoxic: no (94%)
*EKG
Interpreted by ED Provider?: Yes
Comparison EKG: no changes
Heart Rate: 60
Rate: normal
Rhythm: av sequential
*Critical Care Note
Total Time (30-74mins, 75-104mins- exclusive of procedures): 31
comment:
Critical care statement: A total of 31 minutes of critical care time was provided for this patient. This includes management of unstable vital signs, evaluation of the patient at bedside, frequent reassessment, discussion with
consultants/hospitalist, and review of pertinent medical records. This time was separate from time utilized to perform any aforementioned documented procedures
Data Reviewed
Review of Other/Old Records Reveals: Labs, Records and Discharge Summary
Source: patient, records, spouse and ambulance crew
Patient Management
Discussion with other providers: Hospitalist (Discussed with hospitalist)
Escalation/DeEscalation of care consider admission/obs:
Admission indicated
ED Attending Note
-
Portions of this chart may have been created with voice recognition software.� Occasional wrong word or��sound alike� substitutions may have occurred due to the inherent limitations of voice recognition software.
Discharge Plan
Departure
Patient Disposition: Admit
Date of Disposition: 12/02/24
Time of Disposition: 20:23
Admit to doctor: Fei
Presentation/result/management discussed w/ accepting MD/DO: Hospitalist
Discharge Problem:
Acute GI bleeding, Pleural effusion, CHF (congestive heart failure), Hepatic encephalopathy
Prescriptions:
No Action
ascorbic acid (vitamin C) [Vitamin C] 500 MG tablet
500 mg PO DAILY
folic acid 0.4 MG tablet
0.4 mg PO HS Qty: 0 0RF
aspirin 81 MG tablet,delayed release (DR/EC)
81 mg PO HS Qty: 0 0RF
Patient Comments:
patient received 4 baby asa this am
multivitamin with folic acid [Tab-A-Petar] 1 TABLET tablet
1 tab PO HS Qty: 0 0RF
ferrous sulfate 325 mg (65 mg iron) Capsule, Extended Release
325 mg PO DAILY
amiodarone [Pacerone] 200 MG tablet
200 mg PO DAILY
fluticasone propion-salmeterol 230-21 mcg/actuation Hfa Aerosol Inhaler
2 puff inhalation R BID 30 Days Qty: 12 0RF
furosemide 80 mg Tablet
80 mg PO BID@0800,1600 30 Days Qty: 60 0RF
lactulose 10 gram/15 mL Solution
10 g PO BID 30 Days Qty: 900 0RF
Xifaxan 550 mg Tablet
550 mg PO BID 30 Days Qty: 60 0RF
Rx Instructions:
Pt can not get this filled per .
carvedilol 12.5 MG tablet
6.25 mg PO BID 30 Days Qty: 60 0RF
rosuvastatin 20 MG tablet
10 mg PO HS 30 Days Qty: 30 0RF
(DME) blood-glucose meter [ReliOn All-In-One Meter] Kit
Qty: 1 0RF
Rx Instructions:
As Directed
(DME) lancets-blood glucose strips 30 gauge combo pack
See Rx Instructions .Route Qty: 200 0RF
Rx Instructions:
As directed
insulin lispro [Humalog KwikPen Insulin] 100 unit/mL Insulin Pen
5 unit SC AC 30 Days Qty: 90 0RF
albuterol 90 mcg/actuation Aerosol
180 mcg INHALATION Q4 PRN (Reason: wheezing)
fluticasone propion-salmeterol [Advair HFA] 45-21 mcg/actuation Hfa Aerosol Inhaler
2 puff INHALATION BID
guaifenesin [Mucinex] 600 mg Tablet Extended Release 12hr
600 mg PO BID
Spiriva Respimat 2.5 mcg/actuation mist
2 puff inhalation DAILY
Interventions
Interventions:
*Risk Screen - Suicide Last Done: 12/02/24 18:34
*General Assessment Last Done: 12/02/24 18:33
*Neglect/Abuse Screening Last Done: 12/02/24 18:34
*ED- Fall Risk Assessment Last Done: 12/02/24 18:33
*ED COVID-19 Vaccine History Last Done: 12/02/24 18:33
*ED Influenza Vaccine History Last Done: 12/02/24 18:33
ED- Cardiac Assessment Last Done: 12/02/24 19:16
ED- Pulmonary Assessment Last Done: 12/02/24 19:15
Discharge Date and Time
Print Language: GUINEAN
[2024-12-02 19:00] VITALS: BP 102/55
[2024-12-02 19:32] LABS: Hematocrit 28.3 % (39.0-52.0); Hemoglobin 9.1 g/dL (13.0-18.0); Mean Corp Hgb Conc. 32.2 g/dL (33.0-37.0); Mean Corpuscular Volume 101.8 fL (80.0-94.0); Nucleated Red Blood Cells % 0 % (-); Red Cell Dist. Width 17.4 % (11.5-14.5)
[2024-12-02 19:37] LABS: INR 1.31; PT 16.8 Sec (11.4-14.6)
[2024-12-02 19:38] LABS: APTT 33.0 Sec (23.4-35.0)
[2024-12-02 19:40] LABS: Platelet Count 58 10^3/uL (130-400)
[2024-12-02] MEDS: PROTONIX IV 80 MG IV (19:44)
[2024-12-02] MEDS: ZOFRAN 4 MG IV (19:44)
[2024-12-02 19:48] LABS: ALT (SGPT) 150 U/L (0-50); AST (SGOT) 135 U/L (17-59); Albumin 3.3 g/dl (3.5-5.0); Alkaline Phosphatase 195 U/L (38-126); Blood Urea Nitrogen 87 mg/dl (9-20); COVID-19 Antigen Negative (Negative); Calcium 8.6 mg/dl (8.4-10.2); Carbon Dioxide 25 mmol/L (22-30); Chloride 103 mmol/L (98-107); Estimated Creatinine Clearance 36 ml/min; Glucose 132 mg/dl (70-99); Potassium 4.6 mmol/L (3.5-5.1); Sodium 135 mmol/L (135-145); Total Protein 6.5 g/dl (6.3-8.2); eGFR 32.02
[2024-12-02 20:00] VITALS: BP 100/48
[2024-12-02 20:06] LABS: Troponin I 0.038 ng/ml
[2024-12-02 20:19] LABS: Venous Blood Gas B.E. 0.9 mmol/L (-4 to +4); Venous Blood Gas O2 Sat % 93.2 %
[2024-12-02 20:31] LABS: Ammonia 239 umol/L (9-30)
[2024-12-02 21:00] VITALS: BP 105/51
--- NOTE | 2024-12-02 21:36 | PTCARENOTE ---
pharmacy contacted for Rifaxan.
[2024-12-02] MEDS: XIFAXAN 550 MG PO (21:52)
[2024-12-02 22:00] VITALS: BP 108/58
--- NOTE | 2024-12-02 22:41 | HPS.HSE ---
Family Physician
-
Family Physician: Shanel Mendenhall MD
Chief Complaint
-
Weakness, BRBPR
History of Present Illness
Patient is a 74y M with PMH significant for cirrhosis with ascites, HFrEF and CAD who presents to ED for evaluation of weakness. History obtained primarily from his at the bedside as patient is lethargic at present. Patient was admitted
11/12 - 11/24 for similar symptoms. He was treated for volume overload due to cirrhosis and CHF. He underwent multiple thoracenteses and paracenteses during that stay. He was treated for Pseudomonas pneumonia with abx that he completed prior to
discharge. GDMT medications were limited by hypotension / renal impairment. Patient was noted to have BRBPR during that visit. 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 His Plavix
was discontinued.
notes that patient was feeling fairly well after discharge. For the past two days, he has felt much more weak and fatigued. He has continued all of the same medications since discharge - excepting Xifaxan which they were unable to obtain due
to issues with insurance coverage.
Today patient was extremely fatigued and they were advised to present to the ED for evaluation. Just prior to leaving home, patient had BRBPR. About 1/2 coffee cup per with some clots.
Here in the ED, patient has become progressively more lethargic. He answers questions in one word answers. He is asleep most of the time - waking with physical stimuli and falling quickly back to sleep.
states that he has been taking his lactulose at home and has been having 1 BM per day on average.
Medical History
Past Medical History
Past Medical History: Reports Other
Additional Past Medical History:
Cirrhosis with Ascites, Thrombocytopenia dn Chronic Encephalopathy
Hypertension
Type II diabetic mellitus
Prostate cancer
Ventricular arrhythmia status post ICD
CAD status post IL, status post CABG x3
Chronic HFrEF
Past Surgical History: Reports Other
Additional Past Surgical History:
left femoral endarterectomy with kissing bilateral iliac artery stents ()
Social History
Tobacco: Former Smoker
Alcohol: Former
Drug: None
Personal:
Living: With Family
Family History
Family History: Not pertinent
Allergies / Home Medications
Allergies reflects when Allergies were last updated in [employer].
Home Medications with original date entered in [employer]
Allergy/Medication List:
Allergies
Allergy/AdvReac Type Severity Reaction Status Date / Time
erythromycin base Allergy contraindicated Verified 03/05/19 08:52
(Erythromycin Base) (see
comment)
Home Medications
ascorbic acid (vitamin C) 500 mg tablet (Vitamin C) 500 mg PO DAILY Supplement 09/25/18
aspirin 81 mg tablet,delayed release 81 mg PO HS Blood clot prevention/tx ##0 08/07/20
folic acid 400 mcg tablet 0.4 mg PO HS Supplement ##0 08/07/20
multivitamin with folic acid 400 mcg tablet (Tab-A-Petar) 1 tab PO HS Supplement ##0 08/07/20
amiodarone 200 mg tablet (Pacerone) 200 mg PO DAILY Arrhythmia 11/03/24
ferrous sulfate 325 mg (65 mg iron) capsule,extended release 325 mg PO DAILY Supplement 11/03/24
blood-glucose meter (ReliOn All-In-One Meter kit) #1 ea 11/24/24
carvedilol 12.5 mg tablet 6.25 mg (1/2 x 12.5 mg) PO BID Blood pressure 30 days #60 tabs 11/24/24
fluticasone propionate 230 mcg-salmeterol 21 mcg/actuation HFA inhaler 2 puff inhalation R BID 30 days #12 grams 11/24/24
furosemide 80 mg tablet 80 mg PO BID@0800,1600 30 days #60 tabs 11/24/24
insulin lispro 100 unit/mL subcutaneous pen (Humalog KwikPen (U-100) Insulin) 5 unit (0.05 mL) SC AC with meals 30 days #90 ea 11/24/24
lactulose 10 gram/15 mL oral solution 10 g (15 mL) PO BID 30 days #900 mL 11/24/24
lancets 30 gauge and blood glucose strips combo pack #200 ea 11/24/24
rifaximin 550 mg tablet (Xifaxan) 550 mg PO BID 30 days #60 tabs 11/24/24
rosuvastatin 20 mg tablet 10 mg (1/2 x 20 mg) PO HS High cholesterol 30 days #30 tabs 11/24/24
albuterol 90 mcg/actuation aerosol inhaler 180 mcg inhalation Q4 PRN wheezing 12/02/24
fluticasone propionate 45 mcg-salmeterol 21 mcg/actuation HFA inhaler (Advair HFA) 2 puff inhalation BID 12/02/24
guaifenesin 600 mg tablet, extended release 12 hr (Mucinex) 600 mg PO BID 12/02/24
tiotropium bromide 2.5 mcg/actuation mist for inhalation (Spiriva Respimat) 2 puff inhalation DAILY 12/02/24
Review of Systems
-
History Source: Patient
A 12 point ROS was completed and negative except as noted: Yes
Constitutional: Reports Fatigue; Denies Fever or Chills
EENT: Denies Sore Throat
Respiratory: Denies Cough or Trouble Breathing
Cardiac: Denies Chest Pain or Palpitations
Abdomen/GI: Reports Bloody Stools; Denies Abdominal Pain, Nausea, Vomiting, Diarrhea or Anorexia
: Denies Dysuria or Frequency
Musculoskeletal: Reports Edema; Denies Joint Pain
Neurological: Reports Weakness; Denies Dizzy or Headache
Psych: Denies Depression or Anxiety
Physical Exam
Vital Signs
Vital Signs
Temp Pulse Resp BP Pulse Ox
97.7 F 60 12 105/51 97
12/02/24 18:28 12/02/24 21:15 12/02/24 21:15 12/02/24 21:00 12/02/24 21:15
Physical Exam
General: Other (74y M - currently lethargic / poorly responsive.)
HEENT: Moist mucous membranes
Respiratory: Other (Decreased at bases - L > R. Cough with deep inspiration.)
Cardiac: S1/S2 and Regular Rhythm
GI: Other (Abdomen is distended but soft. Not tender. Pos BS.)
Musculoskeletal: No Clubbing, No Cyanosis and Other (3-4+ pitting edema b/l LEs to the thighs.)
Neuro: AO x 3
Laboratory Results
-
12/02/24 19:11
12/02/24 19:11
Laboratory Results
PT 16.8 Sec (11.4-14.6) H 12/02/24 19:11
INR 1.31 12/02/24 19:11
APTT 33.0 Sec (23.4-35.0) 12/02/24 19:11
Lactic Acid 1.7 mmol/L (0.7-2.0) 12/02/24 19:11
Total Bilirubin 2.3 mg/dl (0.2-1.3) H 12/02/24 19:11
AST 135 U/L (17-59) H 12/02/24 19:11
ALT 150 U/L (0-50) H 12/02/24 19:11
Alkaline Phosphatase 195 U/L (38-126) H 12/02/24 19:11
Troponin I 0.038 ng/ml H* 12/02/24 19:11
Impression/Plan
-
A/P: Patient is a 74y M with PMH significant for cirrhosis, CHF and CAD who presents to ED for evaluation of weakness and BRBPR.
Acute on Chronic Hepatic Encephalopathy
- Admit for further evaluation and treatment.
- Patient lethargic in the ED with progressive weakness times days, increased ammonia level.
- Has been without Xifaxan since discharge due to insurance coverage issues.
- Taking lactulose but only averaging 1 BM daily.
- Restart Xifaxan.
- Increase lactulose and titrate for about 3 BM daily.
- Follow for clinical improvement.
BRBPR
- Recurrent BRBPR. Seems likely this is lower source from known area of radiation proctitis.
- Follow for continued / recurrent bleeding.
- GI evaluation.
- s/p flex sig with cautery on 11/17.
Cirrhosis with Ascites and Thrombocytopenia
- LFTs are stable. Acute on chronic encephalopathy as noted above.
- Hgb / platelet counts are stable.
- Increased volume overload despite stable weight at home per (increased by 5kg here).
- IV PPI BID. EGD recommended / discussed as an outpatient.
- GI evaluation as noted above.
- IV Lasix for now.
- Lactulose / Xifaxan as noted above.
Acute on Chronic HFrEF
Recurrent Left Pleural Effusion
- LVEF = 35%.
- Grossly volume overloaded on exam.
- IV Lasix as noted above. Follow for changes in BP, renal function, etc.
- IR consulted for repeat thoracentesis.
ASCVD
- Stable. Plavix discontinued last admission due to bleeding.
- Hold ASA acutely. Resume once GI bleeding resolved.
VT / V-Fib
- Stable. Currently on amiodarone which is not ideal given cirrhosis.
- Reviewed Cardiology noted from recent admission.
- Follow-up with usual [employer] Technician for further discussion.
- No simple alternatives (med substitutions, catheter ablation) for this gentleman.
CKD III
- Stable. Renal function not significantly changed since discharge.
- Follow for changes with IV diuresis, etc.
COPD without Acute Exacerbation
- s/p recent treatment for Pseudomonas pneumonia. Currently afebrile, CXR without new infiltrate.
- Continue inhaled steroid. Nebs PRN.
DVT Prophylaxis: SCDs
Code Status: Full
[2024-12-02] MEDS: DUPHALAC/CHRONULAC 20 GRAMS PO (23:40)
[2024-12-02 23:43] VITALS: BP 110/56
[2024-12-03] VITALS (29 sets, daily range): BP systolic 60–155; BP diastolic 34–76; PULSE 61–65; O2SAT 94; BMI 32.5
[2024-12-03] MEDS: ROCEPHIN 1000 MG IV (01:54)
[2024-12-03] MEDS: STERILE WATER FOR INJECTION 10 ML IV (01:54)
[2024-12-03 02:25] LABS: Hematocrit 24.8 % (39.0-52.0); Hemoglobin 7.9 g/dL (13.0-18.0); Mean Corp Hgb Conc. 31.9 g/dL (33.0-37.0); Mean Corpuscular Volume 101.2 fL (80.0-94.0); Platelet Count 62 10^3/uL (130-400); Red Cell Dist. Width 17.3 % (11.5-14.5)
[2024-12-03 02:34] LABS: ALT (SGPT) 149 U/L (0-50); AST (SGOT) 126 U/L (17-59); Albumin 3.2 g/dl (3.5-5.0); Alkaline Phosphatase 182 U/L (38-126); Blood Urea Nitrogen 87 mg/dl (9-20); Calcium 8.6 mg/dl (8.4-10.2); Carbon Dioxide 25 mmol/L (22-30); Chloride 106 mmol/L (98-107); Estimated Creatinine Clearance 40 ml/min; Glucose 121 mg/dl (70-99); Magnesium 2.5 mg/dl (1.6-2.3); Potassium 4.4 mmol/L (3.5-5.1); Sodium 137 mmol/L (135-145); Total Protein 6.1 g/dl (6.3-8.2); eGFR 36.11
[2024-12-03 02:51] LABS: Troponin I 0.045 ng/ml
[2024-12-03] MEDS: PULMICORT INH (08:14)
--- NOTE | 2024-12-03 08:44 | VNURNOTE ---
Addendum entered by Jeane Horowitz RN 12/06/24 11:11:
[facility] Resumption referral accepted in [facility].
Original Note:
Chart reviewed. Patient is current with [facility]. Will continue to follow hospital course and DC plans.
--- NOTE | 2024-12-03 08:54 | CON.GI ---
Addendum entered and electronically signed by Sasha Jones MD 12/03/24 20:15:
I personally performed a history and physical exam of the patient and discussed management with the resident. I reviewed the resident's note and agree with the documented findings and plan of care HPI/CC.
74-year-old male past medical history as below including multiple cardiac issues including CAD, CABG, peripheral artery disease, CHF with EF of 35%, AICD with recent hospitalization November 12 to for lethargy and bright red blood per rectum,
pneumonia with left-sided pleural effusion and at that time he was found to have new diagnosis of cirrhosis as well as radiation proctitis which he underwent a sigmoidoscopy with Dr. Rae on November 18 with APC performed.
Patient now readmitted with confusion in the setting of not being able to get Xifaxan as an outpatient. He also continues to have some rectal bleeding. His hemoglobin was 9.1 on admission, repeat 7.9, next repeat was 8.7. He is having brown stool
mixed with blood. He also required a thoracentesis and paracentesis. On lasix, his spironolactone was stopped last admission due to MARIA DOLORES. No SBP on fluid studies.
His mental status is improving with lactulose. Plan to titrate to 3-4 bowel movements a day. In regards to the rectal bleeding, I suspect this is related to his radiation proctitis. Since he recently had APC performed, typically we wait 3 to 4
weeks to allow mucosal healing prior to repeat APC. Therefore, we started him on Canasa to help with possible ulcerations that could be present in the area after APC. He may benefit from sucralfate enemas as outpatient. Continue SBP prophylaxis
given the bleeding that he has although it is intermittent.
Upon discharge, patient will need to follow-up with Dr. Butt outpatient and has an appointment with him December 08. Discussed with at bedside.
Original Note:
Consultation
-
Date/Time Consultation Requested: 12/02/24
Date/Time Consultation Performed: 12/03/2024
Requesting Provider: Dr. Enamorado
Performing Provider: Sumeet Torres Kimberly
Reason for Consultation: GI bleed cirrhosis
Medical History
Chief Complaint / HPI
Chief Complaint: GI bleed cirrhosis
History of Present Illness:
Mr. Jonh Rodriguez is a 74-year-old male with past medical history significant for CAD status post CABG and stenting, peripheral arterial disease status post stenting, on aspirin therapy, CHF with depressed EF 35% and history of VT status post ICD on
amiodarone, type 2 diabetes, chronic pulmonary hypertension, recent hospitalization for lethargy and BRBPR, pneumonia with left-sided pleural effusion presented to the emergency department with AMS and bright red blood per rectum. During the
hospitalization he was treated for volume overload due to cirrhosis and CHF. He underwent multiple thoracenteses and paracenteses during that stay. He was treated for Pseudomonas pneumonia with abx that he completed prior to discharge. GDMT
medications were limited by hypotension / renal impairment. Patient was noted to have BRBPR during that visit. 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 His Plavix was discontinued.
He is followed as an outpatient by Dr. Butt with [facility]. His states that he has had elevated liver function test for 'years'. And that they thought it could be secondary to his amiodarone. He had a history of social drinking in the past
however quit this when he has been on amiodarone for the past couple years. Dr. Butt wanted to perform an EGD to look for varices. He had a virtual colonoscopy performed approximately 1 year ago, he states it was done virtually because of DAPT.
Results were negative according to family. Last endoscopic colonoscopy was approximately 8 years ago.
notes that patient was feeling fairly well after discharge. For the past two days, he has felt much more weak and fatigued. He has continued all of the same medications since discharge - excepting Xifaxan which they were unable to obtain due
to issues with insurance coverage. Today patient was extremely fatigued and they were advised to present to the ED for evaluation. Just prior to leaving home, patient had BRBPR. About 1/2 coffee cup per with some clots. Here in the ED,
patient has become progressively more lethargic. He answers questions in one word answers. He is asleep most of the time - waking up to voice commands and falling quickly back to sleep.
states that he has been taking his lactulose at home and has been having 1 BM per day on average. On admission AST 135 ALT 150 ALK 195 T. bili 2.3 ammonia 239 troponin 0.038 proBNP 2540 albumin 3.3. PT 16.8 INR 1.3 PTT 33 Plts 58 BP 105/51
temperature 97.7.
Past Medical History
Past Medical History: Arrhythmias (V tach s/p ICD), CAD (s/p [place] s/p CABG x3), CHF (HFrEF ), HTN, NIDDM and Other (Cirrhosis with Ascites, Thrombocytopenia and Chronic Encephalopathy, Prostate CA s/p XRT)
Past Surgical History: Cardiac (CABG x3) and Other (left femoral endarterectomy with kissing bilateral iliac artery stents () )
Social History
Tobacco: Former Smoker
Alcohol: Former
Drug: None
Personal:
Living: With Family
Allergies / Home Medications
Allergy/AdvReac Type Severity Reaction Status Date / Time
erythromycin base Allergy contraindicated Verified 03/05/19 08:52
(Erythromycin Base) (see
comment)
�Medication �Instructions �Recorded
ascorbic acid (vitamin C) 500 mg 500 mg PO DAILY Supplement 09/25/18
tablet (Vitamin C)
aspirin 81 mg tablet,delayed 81 mg PO HS Blood clot 08/07/20
release prevention/tx ##0
folic acid 400 mcg tablet 0.4 mg PO HS Supplement ##0 08/07/20
multivitamin with folic acid 400 1 tab PO HS Supplement ##0 08/07/20
mcg tablet (Tab-A-Petar)
amiodarone 200 mg tablet (Pacerone) 200 mg PO DAILY Arrhythmia 11/03/24
ferrous sulfate 325 mg (65 mg 325 mg PO DAILY Supplement 11/03/24
iron) capsule,extended release
blood-glucose meter (ReliOn #1 ea 11/24/24
All-In-One Meter kit)
carvedilol 12.5 mg tablet 6.25 mg (1/2 x 12.5 mg) PO BID 11/24/24
Blood pressure 30 days #60 tabs
fluticasone propionate 230 2 puff inhalation R BID 30 days 11/24/24
mcg-salmeterol 21 mcg/actuation #12 grams
HFA inhaler
furosemide 80 mg tablet 80 mg PO BID@0800,1600 30 days #60 11/24/24
tabs
insulin lispro 100 unit/mL 5 unit (0.05 mL) SC AC with meals 11/24/24
subcutaneous pen (Humalog KwikPen 30 days #90 ea
(U-100) Insulin)
lactulose 10 gram/15 mL oral 10 g (15 mL) PO BID 30 days #900 mL 11/24/24
solution
lancets 30 gauge and blood glucose #200 ea 11/24/24
strips combo pack
rifaximin 550 mg tablet (Xifaxan) 550 mg PO BID 30 days #60 tabs 11/24/24
rosuvastatin 20 mg tablet 10 mg (1/2 x 20 mg) PO HS High 11/24/24
cholesterol 30 days #30 tabs
albuterol 90 mcg/actuation aerosol 180 mcg inhalation Q4 PRN wheezing 12/02/24
inhaler
fluticasone propionate 45 2 puff inhalation BID 12/02/24
mcg-salmeterol 21 mcg/actuation
HFA inhaler (Advair HFA)
guaifenesin 600 mg tablet, 600 mg PO BID 12/02/24
extended release 12 hr (Mucinex)
tiotropium bromide 2.5 2 puff inhalation DAILY 12/02/24
mcg/actuation mist for inhalation
(Spiriva Respimat)
Review of Systems
-
Unable to obtain full review of systems at this time due to: Acuity
History Source: Patient (somnolent but responsive to voice commands) and Family
Constitutional: Reports Weight Gain; Denies Fever
EENT: Denies Sore Throat or Runny Nose
Respiratory: Reports Trouble Breathing
Cardiac: Denies Chest Pain
Abdomen/GI: Reports Bloody Stools; Denies Abdominal Pain, Nausea or Vomiting
: Denies Dysuria
Vital Signs
Temp Pulse Resp BP Pulse Ox
98 F 64 16 155/57 92
12/03/24 08:22 12/03/24 08:22 12/03/24 08:22 12/03/24 08:22 12/03/24 08:22
Physical Exam
Exam
General: Other (Somnolent, ill appearing )
HEENT: Normocephalic and Anicteric
Respiratory: Negative Clear (decreased breath sounds, shallow breathing)
Cardiac: S1/S2, Regular Rhythm and Peripheral Edema
GI: Non Tender, Distended and Other (positive fluid wave); Negative Normal Bowel Sounds (hypoactive sounds)
Musculoskeletal: Edema (3+)
Neuro: Awake (somnolent), Tremors (mild) and Nonfocal/Grossly Intact; Negative Alert or No Motor Deficits
Results
WBC 5.3 10^3/uL (4.8-10.8) 12/03/24 02:02
Hgb 7.9 g/dL (13.0-18.0) L 12/03/24 02:02
Hct 24.8 % (39.0-52.0) L 12/03/24 02:02
MCV 101.2 fL (80.0-94.0) H 12/03/24 02:02
Plt Count 62 10^3/uL (130-400) L 12/03/24 02:02
Absolute Neuts (auto) 5.1 10^3/uL (1.4-6.5) 12/02/24 19:11
PT 16.8 Sec (11.4-14.6) H 12/02/24 19:11
INR 1.31 12/02/24 19:11
APTT 33.0 Sec (23.4-35.0) 12/02/24 19:11
Sodium 137 mmol/L (135-145) 12/03/24 02:02
Potassium 4.4 mmol/L (3.5-5.1) 12/03/24 02:02
Chloride 106 mmol/L (98-107) 12/03/24 02:02
Carbon Dioxide 25 mmol/L (22-30) 12/03/24 02:02
BUN 87 mg/dl (9-20) H 12/03/24 02:02
Creatinine 1.9 mg/dL (0.7-1.3) H 12/03/24 02:02
Calcium 8.6 mg/dl (8.4-10.2) 12/03/24 02:02
Total Bilirubin 2.1 mg/dl (0.2-1.3) H 12/03/24 02:02
AST 126 U/L (17-59) H 12/03/24 02:02
ALT 149 U/L (0-50) H 12/03/24 02:02
Alkaline Phosphatase 182 U/L (38-126) H 12/03/24 02:02
Diagnostic Image Results:
Prior GI Procedures:
Sigmoidoscopy:
11/18/2024
Impression:
- Preparation of the colon was poor.
- Multiple colonic angioectasias. Treated with argon plasma
coagulation (APC).
- Stool in the rectum, at the anus and in the sigmoid colon. Exam to
30cm.
- No specimens collected.
EGD:
Colonoscopy:
Approximately 8 years ago ([facility]) 'okay', records not available to us
Virtual colonoscopy 12/01/2023:
No clinically significant polyps are identified.
Tiny pulmonary nodules measuring 4 mm and 3 mm. Initial step for further evaluation recommended with follow-up chest CT.
Small right pleural effusion also noted.
Assessment / Plan
-
Mr. Jonh Rodriguez is a 74-year-old male with past medical history significant for CAD status post CABG and stenting, peripheral arterial disease status post stenting, on aspirin therapy, CHF with depressed EF 35% and history of VT status post ICD on
amiodarone, type 2 diabetes, chronic pulmonary hypertension, recent hospitalization 11/12- for lethargy and BRBPR, pneumonia with left-sided pleural effusion presented to the emergency department with AMS and bright red blood per rectum, unable to
get rifaxamin after discharge. He was admitted for pleural effusion, AMS, HE, and GI bleed in setting of radiation proctitis.
HFrEF hx VT with ICD
MARIA DOLORES on CKD
Elevated Lipase, likely secondary to increased renal function as patient without any abd pain or signs of pancreatitis.
Left pleural effusion
#acute decompensated cirrhosis
#hepatic encephalopathy
#AMS
abnormal liver enzymes
elevated ammonia
tremors
unable to fill rifaximin medication
Trend CBC, BMP, LFTs
-cont lactulose goal of 3 bowel movemnets per day
-cont rifaximin
- IV PPI
- paracentesis
- SBP ppx w/ antibiotics until fluid analysis
#Lower GI bleed
#radiation proctitis
Hx prostate Ca s/p XRT
hgb drop 9.1 to 7.9
no acute intervention
Recent sigmoidoscopy APC 11/[address] Vargas
-Trend CBC
-if still bleeding wo AMS consider sigmoidoscopy
-canasa 1000mg Hs
-cont ASA
This is a preliminary note, please refer to attending note for final recommendations.
-
-
Thank you for consultation and allowing me to participate in the patient's care. Please call the executive receptionist GI physician during the after hours with any questions or concerns.
[2024-12-03 09:16] LABS: Glucose - Point of Care 122 mg/dl (70-99)
[2024-12-03 09:45] LABS: Body Fluid Second Tech HB
[2024-12-03 10:10] LABS: Troponin I 0.050 ng/ml
--- NOTE | 2024-12-03 10:16 | W.PN.HOSP.TC ---
Today's Communication/Plan
-
Plan reviewed with attending
Hold ASA
GI and cards consults
Lactulose and rifaximin
paracentesis
thoracentesis
IS+acapella
alpha 1 antitrypsin
Assessment / Plan
Assessment / Plan
74yoM PMH PAD s/p stent, CAD s/p CABG, COPD, cirrhosis, IDDM presenting with weakness, somnolence, and BRBPR.
AFVSS. Fluid overloaded, third spacing, somnolent. 1 bout of blood with BM. Ammonia 239. Troponin 0.05. Hg decreased to 7.9 from 9.1. Plt 62. Cr 1.9 BUN 87
Given unknown cause for both cirrhosis, COPD, testing for alpha 1 antitrypsin.
#acute on chronic hepatic encephalopathy
- lactulose dose increased
- restart rifaximin
#acute decompensated cirrhosis
- GI consulted- planning paracentesis
- Thoracentesis
- Thrombocytopenia
- LFTs stable
- Monitor Hg and plts
- IV PPI BID
- reports 2.5lb increase. Apparent fluid wave and pleural effusion.
- IV diuresis
#radiation proctitis
- BRBPR
- Gi eval
- Flex sig with cautery 11/17
#IDDM
- Pt has well controlled DM on metformin, but due to MARIA DOLORES on CKD last admission, transitioned to insulin
#acute on chronic HFrEF
#NIMI
- peripheral edema on d/c, continues to be 2+
- Volume overloaded
- statin
- Holding aspirin in setting of GI bleed, anemia
#ASCVD
- Stable. Plavix discontinued last admission due to bleeding.
- Hold ASA acutely. Resume once GI bleeding resolved.
#VT / V-Fib
- Stable. Currently on amiodarone which is not ideal given cirrhosis.
- Follow-up with usual Electromedical Equipment Technician for further discussion.
- No simple alternatives (med substitutions, catheter ablation) for this gentleman.
#CKD III
- Stable. Renal function improved since discharge.
- Follow for changes with IV diuresis, etc.
#COPD
- s/p recent treatment for Pseudomonas pneumonia. Currently afebrile, CXR without new infiltrate.
- Continue inhaled steroid. Nebs PRN.
- Dx while acutely sick. Outpt f/u
- Mucinex, acapella, IS
#macrocytic anemia
- Acute bleed
- Hemodynamically stable
- Monitor H and H
Anticipated Discharge: > 48 hours
Subjective/Interval History
-
Date of Service: December 03, 2024
74yoM PMh cirrhosis, HFrEF, prostate cx s/p RT, CAD s/p CABG, PAD, vtach w ICD on amiodarone, COPD, T2DM presenting with weakness, somnolence, BRBPR.
reports pt having weakness beginning 1-2 days ago but he was mentating at baseline. They went to the scanning tech yesterday where they sent him for a CXR demonstrating large L sided pleural effusion. Once he went home, stated he was
becoming sleepy. Ever since presenting to hospital, pt was somnolent.
Objective Data
-
Labs:
Laboratory Results
12/03/24
02:02
WBC 5.3
Hgb 7.9 L
Hct 24.8 L
Plt Count 62 L
Sodium 137
Potassium 4.4
Chloride 106
Carbon Dioxide 25
BUN 87 H
Creatinine 1.9 H
Glucose 121 H
Calcium 8.6
Total Bilirubin 2.1 H
AST 126 H
ALT 149 H
Alkaline Phosphatase 182 H
Vital Signs:
Vital Signs
Temp Pulse Resp BP Pulse Ox
98 F 62 16 84/70 94
12/03/24 08:22 12/03/24 08:55 12/03/24 08:55 12/03/24 08:55 12/03/24 08:55
Physical Exam
-
General: Comfortable and Appears Chronically Ill
HEENT: Normocephalic, Atraumatic, Moist Mucous Membranes and Anicteric (pt had eyes closed)
Respiratory: Crackles (L side, seen right after thoracentesis)
Cardiac: Regular Rhythm and S1/S2
GI: Soft, Nontender, Distended and Other (fluid wave)
Musculoskeletal: Other (2+ pitting edema)
Skin: Warm and Dry
Neuro: Awake (arousable to voice but somnolent ), Oriented (x3) and Tremors (flapping)
[2024-12-03] MEDS: DUPHALAC/CHRONULAC 20 GRAMS PO (10:38)
[2024-12-03] MEDS: LASIX 60 MG IV ×2 (10:38→17:41)
[2024-12-03] MEDS: PROTONIX IV 40 MG IV ×2 (10:39→20:11)
[2024-12-03] MEDS: XIFAXAN 550 MG PO ×2 (10:39→20:11)
[2024-12-03] MEDS: PACERONE 200 MG PO (10:39)
--- NOTE | 2024-12-03 11:01 | CM ---
Initial Assessment Completed By SWEETIE Godfrey.
Patient's is present, both lives in a 2 Story House with 3 steps to enter and full fligth insire. Patient uses no device to walk, no respiratory equipment, was getting VN and PT with [facility], but no inpatient rehab.
PCP: Dr. Shanel Mendenhall
Pharmacy: [facility]
Patient has transportation home.
PLAN: Home VN vs. No Needs.
[2024-12-03 12:44] LABS: Glucose - Point of Care 159 mg/dl (70-99)
--- NOTE | 2024-12-03 14:39 | CON.CAR ---
Addendum entered and electronically signed by Stevenson Castillo MD 12/03/24 16:40:
Patient seen and examined in collaboration with SENIOR C SOFTWARE DEVELOPER; agree with below.
- 74-year-old male with significantly advanced cirrhosis, CAD/CABG, ICM (EF 35%), VT status-post ICD (on amiodarone), hypertension, hyperlipidemia, PAD, diabetes, and CKD admitted with hepatic encephalopathy.
- Patient is on Lasix 80 mg PO BID at home; currently on Lasix 60 mg IV BID--continue as BP allows.
- The patient is status-post left pleural effusion thoracentesis (1200 cc removed) and paracentesis (2500 cc removed) today; blood pressure is currently low.
- Continue lactulose and supportive care as per primary team.
- Will follow.
Original Note:
Consultation
Consultation Request
Date/Time Consultation Requested: 12/03/24 1:30p
Date/Time Consultation Performed: 12/03/24 2:30p
Requesting Provider: Dr. Gutierrez
Performing Provider: ROCHELLE Ortiz for Dr. Castillo
Reason for Consultation: Afib with RVR
Medical History
-
Chief Complaint: weakness, BRBPR
History of Present Illness:
Mr. Rodriguez is a 74 yo male (known to his community outreach manager Dr. Damon at [facility]) with VT on Amiodarone, MDT ICD, CAD s/p CABG, HFrEF, HTN, HLD, PAD, DM, cirrhosis of liver and prostate cancer, who presented to the ER with weakness and recurrent BRBPR. He
was admitted last week here, d/c 11/24/24, with anemia/BRBPR from radiation proctitis and HFrEF. He c/o weakness and sob that began 2 days ago, he also had 1 episode of BRBPR yesterday at home before arrival. He is admitted to the hospitalist
service with recurrent left pleural effusion s/p thoracentesis today 1200ml removed. We are consulted for acute HFrEF and question of stopping amiodarone due to hepatic encephalopathy.
Past Medical History
Past Medical History: Other (as above)
Past Surgical History: Other (as above)
Social History
Tobacco: Non-Smoker
Personal:
Living: With Family
Family History
Family History: Reviewed & Not Pertinent
Allergies / Home Medications
Allergy/AdvReac Type Severity Reaction Status Date / Time
erythromycin base Allergy contraindicated Verified 03/05/19 08:52
(Erythromycin Base) (see
comment)
�Medication �Instructions �Recorded �Confirmed �Type
ascorbic acid (vitamin C) 500 mg 500 mg PO DAILY Supplement 09/25/18 12/02/24 History
tablet (Vitamin C)
aspirin 81 mg tablet,delayed 81 mg PO HS Blood clot 08/07/20 12/02/24 Rx
release prevention/tx ##0
folic acid 400 mcg tablet 0.4 mg PO HS Supplement ##0 08/07/20 12/02/24 Rx
multivitamin with folic acid 400 1 tab PO HS Supplement ##0 08/07/20 12/02/24 Rx
mcg tablet (Tab-A-Petar)
amiodarone 200 mg tablet (Pacerone) 200 mg PO DAILY Arrhythmia 11/03/24 12/02/24 History
ferrous sulfate 325 mg (65 mg 325 mg PO DAILY Supplement 11/03/24 12/02/24 History
iron) capsule,extended release
blood-glucose meter (ReliOn #1 ea 11/24/24 12/02/24 Rx
All-In-One Meter kit)
carvedilol 12.5 mg tablet 6.25 mg (1/2 x 12.5 mg) PO BID 11/24/24 12/02/24 Rx
Blood pressure 30 days #60 tabs
fluticasone propionate 230 2 puff inhalation R BID 30 days 11/24/24 12/02/24 Rx
mcg-salmeterol 21 mcg/actuation #12 grams
HFA inhaler
furosemide 80 mg tablet 80 mg PO BID@0800,1600 30 days #60 11/24/24 12/02/24 Rx
tabs
insulin lispro 100 unit/mL 5 unit (0.05 mL) SC AC with meals 11/24/24 12/02/24 Rx
subcutaneous pen (Humalog KwikPen 30 days #90 ea
(U-100) Insulin)
lactulose 10 gram/15 mL oral 10 g (15 mL) PO BID 30 days #900 mL 11/24/24 12/02/24 Rx
solution
lancets 30 gauge and blood glucose #200 ea 11/24/24 12/02/24 Rx
strips combo pack
rifaximin 550 mg tablet (Xifaxan) 550 mg PO BID 30 days #60 tabs 11/24/24 12/02/24 Rx
rosuvastatin 20 mg tablet 10 mg (1/2 x 20 mg) PO HS High 11/24/24 12/02/24 Rx
cholesterol 30 days #30 tabs
albuterol 90 mcg/actuation aerosol 180 mcg inhalation Q4 PRN wheezing 12/02/24 12/02/24 History
inhaler
fluticasone propionate 45 2 puff inhalation BID 12/02/24 12/02/24 History
mcg-salmeterol 21 mcg/actuation Lung/Breathing Issues
HFA inhaler (Advair HFA)
guaifenesin 600 mg tablet, 600 mg PO BID Congestion 12/02/24 12/02/24 History
extended release 12 hr (Mucinex)
tiotropium bromide 2.5 2 puff inhalation DAILY 12/02/24 12/02/24 History
mcg/actuation mist for inhalation Lung/Breathing Issues
(Spiriva Respimat)
Physical Exam
Vital Signs
Temp Pulse Resp BP Pulse Ox
97.8 F 60 19 108/53 93
12/03/24 13:45 12/03/24 13:45 12/03/24 13:45 12/03/24 13:45 12/03/24 13:45
Lab Results
12/03/24 02:02
Troponin I 0.050 ng/ml H* 12/03/24 09:15
[id number] Pept 2540 pg/ml 12/02/24 19:11
Physical Exam
General: Well Developed and No Apparent Distress
HEENT: Normocephalic and Moist Mucous Membranes
Respiratory: Non Labored Respirations (diminished bibasilar )
Cardiac: S1/S2
Breast: Deferred by me
GI: Soft and Normal Bowel Sounds
Rectal: Deferred by Provider
Musculoskeletal: No Clubbing and No Cyanosis
Skin: Warm and Dry
Neuro: Awake and Alert
Psych: Calm
Impression / Plan
-
HFrEF/ICM - EF 35%.
- recurrent left pleural effusion s/p thoracentesis 1200ml removed today.
- d/c weight 11/24/24 was 218 lbs and admit weight was 231 lbs.
- s/p paracentesis 2500ml removed today as well.
- IV Lasix 60mg BID as BP tolerates.
- GDMT limited by CKD/MARIA DOLORES and baseline hypotension.
Nonischemic myocardial injury - acute in the setting of acute hfref, hepatic encephalopathy and acute anemia hgb 7.9
- troponin trend 0.038, 0.045, 0.050.
VT - prior ICD shocks in 2020.
- has been on amiodarone since 2020 at 400mg daily until 1 month ago when primary community outreach manager reduced it to 200mg daily.
- MDT ICD in place, no recent discharges.
- difficult situation using amiodarone with underlying cirrhosis (managed by Dr. Butt as outpatient).
- if child and family therapist prefers he stop amiodarone then he can consider VT ablation with Dr. Silva, if not then consider renally dosed Sotalol 120mg Q48hrs, per EP Dr. Mayorga.
CAD - s/p CABG.
- stable w/o angina.
Anemia - acute on chronic.
- recurrent BRBPR.
- radiation proctitis.
Hepatic encephalopathy - acute.
- per GI/hospitalist.
Data Reviewed
-
EKG: Tracing Personally Visualized and interpreted (AV paced rhythm, biventricular ppm 60 bpm)
Medical Tests (Nuc Med, Echo etc): Report Reviewed by me
Labs: Labs Reviewed by me
Old Records: Reviewed
[2024-12-03] MEDS: MUCINEX 600 MG PO ×2 (14:50→20:11)
[2024-12-03] MEDS: ZINC 50 MG PO (14:50)
[2024-12-03] MEDS: COREG PO (14:52)
[2024-12-03] MEDS: TYLENOL 500 MG PO (15:05)
--- NOTE | 2024-12-03 16:03 | PTCARENOTE ---
Patient AAOx3, initially drowsy but more awake now. Patient had CT, para and thora done today. Sites CDI. VSS, BPs soft. at bedside. Patient with 1 large BM that was mixed with blood and then light brown. Repeat labs pending. Will continue to
closely monitor.
[2024-12-03 16:41] LABS: Hemoglobin 8.7 g/dL (13.0-18.0)
[2024-12-03 16:53] LABS: Troponin I 0.044 ng/ml
[2024-12-03 17:40] LABS: Glucose - Point of Care 150 mg/dl (70-99)
[2024-12-03 17:46] LABS: Body Fluid Second Tech BGK
[2024-12-03] MEDS: DUPHALAC/CHRONULAC PO (17:46)
[2024-12-03] MEDS: NOVOLOG FLEXPEN-LOW RESISTANCE 1 UNITS SC (18:02)
[2024-12-03 18:03] LABS: LDH 253 U/L (120-246)
[2024-12-03] MEDS: VENTOLIN NEBULES 2.5 MG INH (19:27)
[2024-12-03] MEDS: PULMICORT 0.5 MG INH (19:27)
[2024-12-03] MEDS: COREG 6.25 MG PO (20:11)
[2024-12-03] MEDS: FOLVITE 0.5 MG PO (21:33)
[2024-12-03] MEDS: ROWASA, CANASA SUPPOSITORY 1000 MG RECTAL (21:33)
[2024-12-03] MEDS: CRESTOR 10 MG PO (21:35)
[2024-12-03 21:46] LABS: Glucose - Point of Care 188 mg/dl (70-99)
--- NOTE | 2024-12-03 22:03 | PTCARENOTE ---
Pt grossly incontinent very large amount liquid brown with small food pieces throughout output. Pt now due for Lactulose which he is refusing at this time. Pt has had at least three very large loose BM's since the start of this shift. Lactulose not
given at this time. Pt stated 'I'll start taking it again in the morning.' Christiano care given, linens changed. Skin protectant applied to christiano area. Pt maintained on Q2hr turns. Call ralph remains within reach. Will continue to monitor.
[2024-12-03 22:18] LABS: Urine Character Clear (Clear)
[2024-12-03 22:50] LABS: Urine Red Blood Cell 0-2 /HPF (0-2)
[2024-12-04] VITALS (15 sets, daily range): BP systolic 79–110; BP diastolic 41–77; BMI 30.4
[2024-12-04] MEDS: STERILE WATER FOR INJECTION 10 ML IV (02:25)
[2024-12-04] MEDS: FLUSH (NSS) 2 FLUSH IV (02:26)
[2024-12-04] MEDS: ROCEPHIN 1000 MG IV (02:26)
[2024-12-04 03:53] LABS: Hematocrit 25.5 % (39.0-52.0); Hemoglobin 8.4 g/dL (13.0-18.0); Mean Corp Hgb Conc. 32.9 g/dL (33.0-37.0); Mean Corpuscular Volume 99.6 fL (80.0-94.0); Platelet Count 66 10^3/uL (130-400); Red Cell Dist. Width 17.5 % (11.5-14.5)
[2024-12-04 04:08] LABS: ALT (SGPT) 159 U/L (0-50); AST (SGOT) 141 U/L (17-59); Albumin 3.1 g/dl (3.5-5.0); Alkaline Phosphatase 130 U/L (38-126); Blood Urea Nitrogen 85 mg/dl (9-20); Calcium 8.5 mg/dl (8.4-10.2); Carbon Dioxide 25 mmol/L (22-30); Chloride 107 mmol/L (98-107); Estimated Creatinine Clearance 33 ml/min; Glucose 113 mg/dl (70-99); Potassium 3.8 mmol/L (3.5-5.1); Sodium 139 mmol/L (135-145); Total Protein 6.2 g/dl (6.3-8.2); eGFR 30.28
--- NOTE | 2024-12-04 05:52 | PTCARENOTE ---
Pt sleeping with pox down to 75%. Pt placed on 2L NC pox back up to 95%. Pt resting comfortably without compliant. Call ralph remains within reach.
[2024-12-04] MEDS: VENTOLIN NEBULES 2.5 MG INH ×2 (07:14→19:47)
[2024-12-04] MEDS: PULMICORT 0.5 MG INH ×2 (07:14→19:47)
--- NOTE | 2024-12-04 08:36 | W.PN.HOSP.TC ---
Today's Communication/Plan
-
continue ceftriaxone per GI
Resume aspirin tomorrow`
Assessment / Plan
Assessment / Plan
IMPRESSION: 74-year-old male with PMHx significant for cirrhosis with ascites, HFrEF, CAD s/p triple-vessel CABG, chronic HFrEF with EF of 35%, ventricular erythremia s/p ICD placement, type 2 diabetes, hypertension, chronic hepatic encephalopathy,
recent admission for radiation proctitis presents to the hospital for evaluation of lethargy and bright red blood per rectum. He is admitted to the hospital for evaluation of acute on chronic hepatic encephalopathy-day 3 of admission
Assessment and plan -
# Acute on chronic hepatic encephalopathy
Secondary to decompensated liver cirrhosis-unknown etiology
Currently encephalopathy resolved-
Lactulose dose cut down half to maintain bowel mjnztwiuu-0-7 daily
Continue rifaximin, patient oriented to person place and time. No asterixis.
GI on board, input is appreciated.
# Decompensated cirrhosis- thrombocytopenia, and ascites.
No history of alcohol use. Likely MASH versus hepatitis, hepatitis panel pending.
Alpha-1 antitrypsin results pending, patient might benefit from liver biopsy
S/p thoracocentesis, LFTs stable, monitor hemoglobin and platelets.
IV PPI twice daily. Diuresis held for MARIA DOLORES from decompensated cirrhosis.
Outpatient GI follow-up recommended.
# Ascites
secondary to portal hypertension from decompensated cirrhosis
No evidence of spontaneous bacterial peritonitis, currently on ceftriaxone.
S/p paracentesis, PMN count less than 250. Touch base with GI,
discontinue ceftriaxone.
# MARIA DOLORES on CKD stage IIIb -
Likely secondary to to a confluence of hepatorenal syndrome and cardiorenal syndrome
Hydration with IV Lasix held and suspicion for hepatorenal syndrome
Serum creatinine mildly trending up, currently at 2.2.
Follow serum creatinine, I's and O's closely.
May need eventual nephrology evaluation.
# Acute on chronic HFrEF with left-sided pleural effusion-
S/p thoracocentesis. Weight down by 7-8 kgs since admission
Currently on IV Lasix 60 twice daily, monitor I's and O's, trend weights
Sodium and fluid restriction and diet.
Continue Coreg, KYLER/ARB, ANR I, MCA -contraindicated in MARIA DOLORES, and limited by hypotension.
Continue to monitor BMP
# Acute blood loss anemia
Secondary to radiation proctitis
Hide flexible sigmoidoscopy on
Plavix discontinued, no bloody bowel movements today.
Will resume aspirin, after cleared by GI
Trend CBC, transfuse if Hb less than 7.
# VT/V-fib
Stable, MDT ICD in place
Continue amiodarone.
# COPD -
No history of smoking or alcohol use.
No family history of genetic deficiency
COPD and cirrhosis as both are unexplained, alpha-1 antitrypsin labs were ordered which are pending
It would be less likely for the patient to 6 without the diagnosis of alpha-1 antitrypsin deficiency
Outpatient pulmonology follow-up recommended.
On Acapella and spirometry.
# CAD s/p CABG-
Resume patient's aspirin today.
# NIDDM-
Previously on metformin, given CKD and MARIA DOLORES
Currently on insulin sliding scale.
# Diet-
Full liquid diet
# DVT prophylaxis-
SCD
# CODE STATUS-
Full code.
Anticipated Discharge: Today
Subjective/Interval History
-
Date of Service: December 04, 2024
feeling better, no complaints today
Objective Data
-
Labs:
Laboratory Results
12/04/24
03:33
WBC 5.6
Hgb 8.4 L
Hct 25.5 L
Plt Count 66 L
Sodium 139
Potassium 3.8
Chloride 107
Carbon Dioxide 25
BUN 85 H
Creatinine 2.2 H
Glucose 113 H
Calcium 8.5
Total Bilirubin 2.3 H
AST 141 H
ALT 159 H
Alkaline Phosphatase 130 H
Vital Signs:
Vital Signs
Temp Pulse Resp BP Pulse Ox
97.8 F 60 16 104/52 96
12/04/24 07:21 12/04/24 07:15 12/04/24 07:15 12/04/24 06:02 12/04/24 07:15
I&O
12/03/24 12/04/24 12/05/24
06:59 06:59 06:59
Intake Total 200 / 200
Output Total 730 / 730
Balance -530 / -530
Review of Systems
-
History Source: Patient
Constitutional: Reports Fatigue
EENT: Reports No Symptoms Reported
Respiratory: Reports Cough (mucoid expectoration)
Cardiac: Reports No Symptoms
Abdomen/GI: Reports No Symptoms
Genitourinary: Reports No Symptoms
Musculoskeletal: Reports No Symptoms
Skin: Reports No Symptoms
Neuro: Reports No Symptoms
Endocrine: Reports No Symptoms
Physical Exam
-
General: No Apparent Distress and Comfortable
HEENT: Moist Mucous Membranes and [place] Conjunctivae; Negative Anicteric
Respiratory: Wheezes (mild inspiratory) and Crackles (across b/l lower lung lobes)
Cardiac: Regular Rhythm, S1/S2 and Murmur (Systolic murmur, 2/6); Negative Rub or Gallop
GI: Soft, Nontender, Normal Bowel Sounds, Distended, Organomegaly (hepatomegaly) and Other (dull to percussion, and apparent fluid thrill, no spider naevi, umbilicus everted.)
Genito-urinary: No Costovertebral Tender
Musculoskeletal: No Clubbing, No Cyanosis, Edema, Right Lower Extrem (2+ pitting upto the kneees) and Edema, Left Lower Extrem (2+ pitting, upto the knees)
Skin: Warm
Neuro: AO x 3 and No Motor Deficits
Psych: Calm
Data Reviewed
-
Medical Tests (Nuc Med, Echo etc): Image personally visualized and interpreted and Report Reviewed by me
Labs: Labs Reviewed by me, Discussed with Physician, Discussed with Patient and Discussed with Family
[2024-12-04] MEDS: LASIX 60 MG IV ×2 (08:50→17:08)
[2024-12-04] MEDS: XIFAXAN 550 MG PO ×2 (08:50→20:50)
[2024-12-04] MEDS: ZINC 50 MG PO (08:50)
[2024-12-04] MEDS: PACERONE 200 MG PO (08:50)
[2024-12-04] MEDS: MUCINEX 600 MG PO ×2 (08:50→20:50)
[2024-12-04] MEDS: PROTONIX IV 40 MG IV (08:50)
[2024-12-04] MEDS: COREG 6.25 MG PO ×2 (08:51→20:50)
[2024-12-04] MEDS: NOVOLOG FLEXPEN-LOW RESISTANCE SC ×2 (08:52→17:53)
[2024-12-04] MEDS: DUPHALAC/CHRONULAC 20 GRAMS PO ×3 (08:54→20:50)
[2024-12-04 09:03] LABS: Glucose - Point of Care 129 mg/dl (70-99)
--- NOTE | 2024-12-04 10:44 | W.PN.UPDATE ---
Update Note
Progress Note Update
I have independently evaluated the patient at the bedside. I reviewed the case with the resident and agree with all documentation.
AFVSS. Labs stable. Mental status improved, states he feels better. Does state he had roughly 6 bowel movements yesterday
AO x 4 NAD. RRR, normal S1 and 2, no murmur or gallop. Crackles at the lung bases, nonlabored. Benign abdomen. 1+ edema, Unable to assess for JVD. Skin warm with palpable pulses. No obvious FND or tremor
#Decompensated liver cirrhosis of unknown etiology. MELD 3.0 score 19. Complicated by hepatic encephalopathy, thrombocytopenia, and ascites. No known alcohol use history. Possibly related to MASH versus hepatitis. Follow-up hepatitis serology
and metabolic panel. Further management as below
#Hepatic encephalopathy. Was unable to receive rifaximin as OP. Ammonia level high on arrival. Mental status improving with resumption of Xifaxan and lactulose here. Will reduce lactulose frequency due to 6 bowel movements yesterday, goal of 3-4
bowel movements daily. Monitor GCS
#Ascites secondary to portal hypertension. Status post paracentesis without SBP. Continue with Lasix for now, unlikely to tolerate Aldactone with CKD 4
#Acute on chronic HFrEF with transudative left pleural effusion. Will continue with IV Lasix twice daily for now and monitor BMP + I's and O's + weights. Continue carvedilol for GDMT. Monitor on telemetry. Consider repeat CXR if oxygen status
worsens
#ABLA secondary to radiation proctitis. Had flexible sigmoidoscopy on 11/17 that showed radiation proctitis. Plavix was discontinued previously. Holding aspirin for now. Will continue to trend CBC, transfuse for hemoglobin <7 or symptoms of
anemia. Ideally would resume aspirin within next 24 hours with history of CABG.
Diet -- Regular, Na-restricted
Thromboprophylaxis -- SCDs
CODE STATUS -- Full
Disposition -- SNF in >48 hours
[2024-12-04 11:29] LABS: HDL Cholesterol 29 mg/dl; LDL Cholesterol, Calculated 86 mg/dl; Very Low Density Lipoprotein 19 mg/dl (0-30)
[2024-12-04] MEDS: NOVOLOG FLEXPEN-LOW RESISTANCE 2 UNITS SC (12:27)
[2024-12-04 12:37] LABS: Glucose - Point of Care 227 mg/dl (70-99)
--- NOTE | 2024-12-04 14:58 | W.PN.GI.CBS2 ---
Addendum entered and electronically signed by Sasha Jones MD 12/04/24 15:11:
I d/w finishing lab technician informally do not recommend SBP prophylaxis in lower GIB.
Original Note:
Today's Communication / Plan
-
continue lactulose, monitor mental status, continue canasa, monitor bleeding, gi signing off
Assessment / Plan
-
74-year-old male past medical history as below including multiple cardiac issues including CAD, CABG, peripheral artery disease, CHF with EF of 35%, AICD with recent hospitalization November 12 to for lethargy and bright red blood per rectum,
pneumonia with left-sided pleural effusion and at that time he was found to have new diagnosis of cirrhosis as well as radiation proctitis which he underwent a sigmoidoscopy with Dr. Rae on November 18 with APC performed.
Patient now readmitted with confusion in the setting of not being able to get Xifaxan as an outpatient. He also continues to have some rectal bleeding. His hemoglobin was 9.1 on admission, repeat 7.9, next repeat was 8.7. He is having brown stool
mixed with blood. He also required a thoracentesis and paracentesis. On lasix, his spironolactone was stopped last admission due to MARIA DOLORES. No SBP on fluid studies. Diuretics per cardiology.
His mental status is improving with lactulose. Plan to titrate to 3-4 bowel movements a day. In regards to the rectal bleeding, I suspect this is related to his radiation proctitis. Since he recently had APC performed, typically we wait 3 to 4
weeks to allow mucosal healing prior to repeat APC. Therefore, we started him on Canasa to help with possible ulcerations that could be present in the area after APC -recommend to give him script upon discharge for Canasa. He may benefit from
sucralfate enemas as outpatient. Given the fact the bleeding has stopped and is lower, will stop antibiotics for SBP prophylaxis. Will stop PPI since that increases risk of SBP and no signs of UGIB. Continue ASA 81 mg given cardiac conditions.
Recommend daily MELD labs in hospital (CBC, BMP, LFTs, coag).
Upon discharge, patient will need to follow-up with Dr. Butt outpatient and has an appointment with him December 08.
D/w resident.
GI will sign off please call with ?s.
Subjective
Subjective
Date of Service: December 04, 2024
Confusion improving
Only one BM recorded yesterday bloody then brown
However on d/w nursing had multiple BMs
Objective
Data Reviewed
Laboratory Data:
Laboratory Results
12/04/24 03:33
12/04/24 03:33
Laboratory Results
PT 16.8 Sec (11.4-14.6) H 12/02/24 19:11
INR 1.31 12/02/24 19:11
APTT 33.0 Sec (23.4-35.0) 12/02/24 19:11
Phosphorus 4.6 mg/dl (2.5-4.5) H 12/03/24 02:02
Magnesium 2.5 mg/dl (1.6-2.3) H 12/03/24 02:02
Total Bilirubin 2.3 mg/dl (0.2-1.3) H 12/04/24 03:33
AST 141 U/L (17-59) H 12/04/24 03:33
ALT 159 U/L (0-50) H 12/04/24 03:33
Alkaline Phosphatase 130 U/L (38-126) H 12/04/24 03:33
Vital Signs and I&O:
Vital Signs
Temp Pulse Resp BP Pulse Ox
97.8 F 66 14 103/42 95
12/04/24 07:21 12/04/24 10:30 12/04/24 10:30 12/04/24 10:00 12/04/24 10:30
I&O
12/03/24 12/04/24 12/05/24
06:59 06:59 06:59
Intake Total 200 / 200
Output Total 730 / 730 275 / 275
Balance -530 / -530 -275 / -275
Physical Exam
Physical Exam
GI: Distended and Non Tender
[2024-12-04 17:48] LABS: Glucose - Point of Care 140 mg/dl (70-99)
[2024-12-04 18:59] LABS: Hepatitis A Antibody, Total Negative (Negative); Hepatitis B Surface Antigen Negative (Negative); Hepatitis C Antibody Negative (Negative)
[2024-12-04] MEDS: CRESTOR 10 MG PO (20:50)
[2024-12-04] MEDS: FOLVITE 0.5 MG PO (20:50)
[2024-12-04] MEDS: ROWASA, CANASA SUPPOSITORY 1000 MG RECTAL (20:51)
[2024-12-04 21:43] LABS: Glucose - Point of Care 185 mg/dl (70-99)
[2024-12-05] VITALS (12 sets, daily range): BP systolic 89–134; BP diastolic 43–118; BMI 30.9
[2024-12-05 04:12] LABS: Hematocrit 26.1 % (39.0-52.0); Hemoglobin 8.6 g/dL (13.0-18.0); Mean Corp Hgb Conc. 33.0 g/dL (33.0-37.0); Mean Corpuscular Volume 101.6 fL (80.0-94.0); Platelet Count 47 10^3/uL (130-400); Red Cell Dist. Width 16.9 % (11.5-14.5)
[2024-12-05 04:15] LABS: INR 1.44; PT 17.8 Sec (11.4-14.6)
[2024-12-05 04:29] LABS: ALT (SGPT) 154 U/L (0-50); AST (SGOT) 120 U/L (17-59); Albumin 2.9 g/dl (3.5-5.0); Alkaline Phosphatase 134 U/L (38-126); Blood Urea Nitrogen 79 mg/dl (9-20); Calcium 8.2 mg/dl (8.4-10.2); Carbon Dioxide 24 mmol/L (22-30); Chloride 106 mmol/L (98-107); Estimated Creatinine Clearance 33 ml/min; Glucose 126 mg/dl (70-99); Potassium 3.4 mmol/L (3.5-5.1); Sodium 136 mmol/L (135-145); Total Protein 5.8 g/dl (6.3-8.2); eGFR 30.28
--- NOTE | 2024-12-05 05:01 | SUR.OPER ---
Per at beginning of shift pt had 4 BM's during the day. Pt was incontinent large amount of stool while sitting up in chair at 2200 last night. HS Lactulose declined by pt and . Pt cleansed, changed and received CHG bath. VSS. Afebrile. AV
paced on monitor. Placed on 2L NC overnight while asleep pox down to 75%. Continues with moist productive cough. Neuro checks unchanged from previous shift. No change from previous assessment. Maintained on Q2hr turns. Call ralph remains within
reach. Will continue to monitor.
[2024-12-05] MEDS: PULMICORT 0.5 MG INH ×2 (07:14→19:38)
[2024-12-05] MEDS: VENTOLIN NEBULES 2.5 MG INH ×2 (07:14→19:38)
--- NOTE | 2024-12-05 08:01 | W.PN.HOSP.TC ---
Today's Communication/Plan
-
GI signed off, continue current management per cardiology.
Assessment / Plan
Assessment / Plan
IMPRESSION: 74-year-old male with PMHx significant for cirrhosis with ascites, HFrEF, CAD s/p triple-vessel CABG, chronic HFrEF with EF of 35%, ventricular erythremia s/p ICD placement, type 2 diabetes, hypertension, chronic hepatic encephalopathy,
recent admission for radiation proctitis presents to the hospital for evaluation of lethargy and bright red blood per rectum. He is admitted to the hospital for evaluation of acute on chronic hepatic encephalopathy-day 4 of admission
Assessment and plan -
# Acute on chronic hepatic encephalopathy
Secondary to decompensated liver cirrhosis-unknown etiology
Currently encephalopathy resolved-
Lactulose dose cut down half to maintain bowel gufoogcaw-3-2 daily
Continue rifaximin, patient oriented to person place and time. No asterixis.
GI on board, input is appreciated.
# Decompensated cirrhosis- thrombocytopenia, and ascites.
Platelet count at 47, patient reports no abnormal blood or bruising. Multiple skin bruises on bilateral upper extremities and and abdomen noted.
No history of alcohol use. Likely MASH versus hepatitis, hepatitis panel pending.
Alpha-1 antitrypsin results pending, patient might benefit from liver biopsy
S/p thoracocentesis, LFTs stable, monitor hemoglobin and platelets.
IV PPI twice daily. Diuresis held for MARIA DOLORES from decompensated cirrhosis.
Outpatient GI follow-up recommended.
# Ascites
secondary to portal hypertension from decompensated cirrhosis
No evidence of spontaneous bacterial peritonitis, currently on ceftriaxone.
S/p paracentesis, PMN count less than 250. Touch base with GI,
discontinue ceftriaxone.
# MARIA DOLORES on CKD stage IIIb -
Likely secondary to to a confluence of hepatorenal syndrome and cardiorenal syndrome
Hydration with IV Lasix held and suspicion for hepatorenal syndrome
Serum creatinine mildly trending up, currently at 2.2.
Follow serum creatinine, I's and O's closely.
May need eventual nephrology evaluation.
# Acute on chronic HFrEF with left-sided pleural effusion-
S/p thoracocentesis. Weight down by 7-8 kgs since admission, overnight patient gained 1kg.
Currently on IV Lasix 60 twice daily, monitor I's and O's, trend weights
Sodium and fluid restriction and diet.
Continue Coreg, KYLER/ARB, ANR I, MCA -contraindicated in MARIA DOLORES, and limited by hypotension.
Continue to monitor BMP
# Acute blood loss anemia
Secondary to radiation proctitis
Hide flexible sigmoidoscopy on
Plavix discontinued, no bloody bowel movements today.
Will resume aspirin, after cleared by GI
Trend CBC, transfuse if Hb less than 7.
# VT/V-fib
Stable, MDT ICD in place
Continue amiodarone.
# COPD -
No history of smoking or alcohol use.
No family history of genetic deficiency
COPD and cirrhosis as both are unexplained, alpha-1 antitrypsin labs were ordered which are pending
It would be less likely for the patient to 6 without the diagnosis of alpha-1 antitrypsin deficiency
Outpatient pulmonology follow-up recommended.
On Acapella and spirometry.
# CAD s/p CABG-
Resume patient's aspirin today.
# NIDDM-
Previously on metformin, given CKD and MARIA DOLORES
Currently on insulin sliding scale.
# Diet-
Full liquid diet
# DVT prophylaxis-
SCD
# CODE STATUS-
Full code.
Anticipated Discharge: 24 - 48 hours
Subjective/Interval History
-
Date of Service: December 05, 2024
No events overnight, his appetite has improved, he is not happy about fluid restrictions.
No bowel movement yesterday. No solids intake as well.
Objective Data
-
Labs:
Laboratory Results
12/05/24
03:51
WBC 5.1
Hgb 8.6 L
Hct 26.1 L
Plt Count 47 L D
PT 17.8 H
INR 1.44
Sodium 136
Potassium 3.4 L
Chloride 106
Carbon Dioxide 24
BUN 79 H
Creatinine 2.2 H
Glucose 126 H
Calcium 8.2 L
Total Bilirubin 1.9 H
AST 120 H
ALT 154 H
Alkaline Phosphatase 134 H
Vital Signs:
Vital Signs
Temp Pulse Resp BP Pulse Ox
98 F 60 16 102/51 96
12/05/24 04:35 12/05/24 07:15 12/05/24 07:15 12/05/24 06:00 12/05/24 07:15
I&O
12/04/24 12/05/24 12/06/24
06:59 06:59 06:59
Intake Total 200 / 200 1374 / 1374
Output Total 730 / 730 1075 / 1075
Balance -530 / -530 299 / 299
Review of Systems
-
History Source: Patient
Constitutional: Reports Fatigue
EENT: Reports No Symptoms Reported
Respiratory: Reports Trouble Breathing
Cardiac: Reports No Symptoms
Abdomen/GI: Reports No Symptoms
Genitourinary: Reports No Symptoms
Musculoskeletal: Reports No Symptoms
Skin: Reports No Symptoms
Neuro: Reports No Symptoms
Endocrine: Reports No Symptoms
Hematologic / Lymphatic: Reports No Symptoms
Physical Exam
-
General: No Apparent Distress and Comfortable (On 2 L nasal cannula flow)
HEENT: Atraumatic and Moist Mucous Membranes
Respiratory: Wheezes (Bilateral inspiratory and expiratory wheezes) and Crackles (Lower lobe crackles-B/L); Negative Rales or Rhonchi
Cardiac: Regular Rhythm and S1/S2; Negative Murmur, Rub or Gallop
GI: Soft, Normal Bowel Sounds, Distended and Other (dull to percussion, and apparent fluid thrill, no spider naevi, umbilicus everted.)
Genito-urinary: No Costovertebral Tender
Musculoskeletal: No Clubbing, No Cyanosis and Other (2+ pitting edema in bilateral lower extremity)
Neuro: AO x 3 and No Motor Deficits
Psych: Calm
Data Reviewed
-
Labs: Labs Reviewed by me, Discussed with Physician and Discussed with Patient
[2024-12-05 08:06] LABS: Glucose - Point of Care 128 mg/dl (70-99)
[2024-12-05] MEDS: NOVOLOG FLEXPEN-LOW RESISTANCE SC ×2 (08:10→16:59)
[2024-12-05] MEDS: PACERONE PO (08:58)
--- NOTE | 2024-12-05 09:00 | W.PN.CD ---
Today's Communication / Plan
-
- Stop AMiodarone
- Stop Coreg
- Start Propranolol
- Consider starting Aldactone prior to discharge if Cr improves.
Impression / Plan
-
HFrEF/ICM - EF 35%.
- recurrent left pleural effusion s/p thoracentesis 1200ml removed today.
- s/p paracentesis 2500ml removed as well.
- IV Lasix 60mg BID as BP tolerates.
- GDMT limited by CKD/MARIA DOLORES and baseline hypotension.
- Will stop Coreg and switch to Propranolol.
Nonischemic myocardial injury - acute in the setting of acute hfref, hepatic encephalopathy and acute anemia hgb 7.9
- troponin trend 0.038, 0.045, 0.050.
- Hgb is stable.
- Thrombocytopenia in setting of liver injury and GI bleed. OK to hold ASA for now.
VT - prior ICD shocks in 2020.
- has been on amiodarone since 2020 at 400mg daily until 1 month ago when primary patient services clerk reduced it to 200mg daily.
- MDT ICD in place, no recent discharges.
- difficult situation using amiodarone with underlying cirrhosis (managed by Dr. Butt as outpatient).
- After a long discussion with the patient and family, Amiodarone was discontinued.
- Continue to monitor VT episodes. The Amiodarone is expected to stay in system for a few weeks and will continue to monitor recurrence of VT on his ICD
- If VT noted, will have to either restart Amio, find an alternative (Sotalol) or opt for ablation.
- At this time,lets be hopeful that the LFTs would improve.
CAD - s/p CABG.
- stable w/o angina.
Anemia - acute on chronic.
- recurrent BRBPR.
- radiation proctitis.
Hepatic encephalopathy - acute.
- per GI/hospitalist.
Physical Exam
Vital Signs/Labs
Vital Signs
Temp Pulse Resp BP Pulse Ox
97.5 F 60 16 102/51 96
12/05/24 08:00 12/05/24 07:15 12/05/24 07:15 12/05/24 06:00 12/05/24 07:15
12/04/24 12/05/24 12/06/24
06:59 06:59 06:59
Actual Weight 96 kg 97.6 kg
12/05/24 03:51
12/05/24 03:51
PT 17.8 Sec (11.4-14.6) H 12/05/24 03:51
INR 1.44 12/05/24 03:51
APTT 33.0 Sec (23.4-35.0) 12/02/24 19:11
Magnesium 2.5 mg/dl (1.6-2.3) H 12/03/24 02:02
Triglycerides 95 mg/dl (10-149) 12/04/24 03:33
LDL Cholesterol, Calc 86 mg/dl 12/04/24 03:33
VLDL Cholesterol, Calc 19 mg/dl (0-30) 12/04/24 03:33
HDL Cholesterol 29 mg/dl 12/04/24 03:33
12/02/24
19:11
[id number] Pept 2540
LAB Results
12/02/24 12/03/24 12/03/24
19:11 02:02 09:15
Troponin I 0.038 H* 0.045 H* 0.050 H*
12/03/24
16:14
Troponin I 0.044 H*
Physical Exam
Constitutional: No acute distress and Comfortable
EENT: Anicteric and Moist mucous membranes
Cardiovascular: Rhythm & rate is regular, Pedal edema is absent and JVD pressure is normal
Respiratory: Respiratory effort normal, Lungs clear to auscul. and Wheeze Absent
GI: Soft, Non tender and Normal bowel sounds
Neuro/Psych: Alert and Oriented
Data Reviewed
-
Date of Service: December 05, 2024
Medical Decision Making: Reviewed Test Results, Test Interpretation and Review of Case with other Provider
EKG: Tracing Personally Visualized and interpreted
Echo: Report Reviewed by me
Labs: Labs Reviewed by me
Old Records: Reviewed
[2024-12-05] MEDS: MUCINEX 600 MG PO ×2 (09:03→20:11)
[2024-12-05] MEDS: KCL ELIXIR 40 MEQ PO (09:03)
[2024-12-05] MEDS: DUPHALAC/CHRONULAC 20 GRAMS PO ×2 (09:03→20:11)
[2024-12-05] MEDS: LOW STRENGTH ASPIRIN 81 MG PO (09:04)
[2024-12-05] MEDS: LASIX 60 MG IV ×2 (09:04→16:39)
[2024-12-05] MEDS: ZINC 50 MG PO (09:04)
[2024-12-05] MEDS: COREG 6.25 MG PO (09:04)
[2024-12-05] MEDS: XIFAXAN 550 MG PO ×2 (09:05→20:17)
--- NOTE | 2024-12-05 10:03 | PTCARENOTE ---
Pt's LUE edematous, +1 pitting. TT to , order for US. Pt just sent to US. at bedside and updated.
[2024-12-05 12:37] LABS: Glucose - Point of Care 245 mg/dl (70-99)
[2024-12-05] MEDS: NOVOLOG FLEXPEN-LOW RESISTANCE 2 UNITS SC (12:42)
--- NOTE | 2024-12-05 14:18 | PTCARENOTE ---
This morning, patient's expresses concern about recommendation for patient to go to rehab. She states 'he usually goes home.' Made aware at that time. Patient taken for a walk with RN at this time. Pt did not want to use walker. Pt did
2 laps in room from door to window, was mostly steady on feet except for one turn, pt did lose his balance but caught himself. BP stable, 105/46.
--- NOTE | 2024-12-05 16:15 | CM ---
Following up on Patient. There is PT/OT note in that recommends SNF, but when entered the room, the patient stated he has been walking around the room so likely home PT.
PLAN: Home PT w/ [facility]
[2024-12-05 16:57] LABS: Glucose - Point of Care 129 mg/dl (70-99)
[2024-12-05] MEDS: INDERAL 20 MG PO (20:17)
[2024-12-05] MEDS: FOLVITE 0.5 MG PO (20:19)
[2024-12-05] MEDS: CRESTOR 10 MG PO (20:19)
[2024-12-05] MEDS: ROWASA, CANASA SUPPOSITORY 1000 MG RECTAL (20:58)
[2024-12-05 22:19] LABS: Glucose - Point of Care 185 mg/dl (70-99)
[2024-12-06] VITALS (12 sets, daily range): BP systolic 77–102; BP diastolic 38–53; PULSE 61; BMI 30.9
[2024-12-06 04:25] LABS: Hematocrit 26.3 % (39.0-52.0); Hemoglobin 8.3 g/dL (13.0-18.0); Mean Corp Hgb Conc. 31.6 g/dL (33.0-37.0); Mean Corpuscular Volume 102.7 fL (80.0-94.0); Platelet Count 56 10^3/uL (130-400); Red Cell Dist. Width 17.0 % (11.5-14.5)
[2024-12-06 04:41] LABS: ALT (SGPT) 152 U/L (0-50); AST (SGOT) 118 U/L (17-59); Albumin 2.9 g/dl (3.5-5.0); Alkaline Phosphatase 147 U/L (38-126); Blood Urea Nitrogen 77 mg/dl (9-20); Calcium 8.5 mg/dl (8.4-10.2); Carbon Dioxide 25 mmol/L (22-30); Chloride 106 mmol/L (98-107); Estimated Creatinine Clearance 32 ml/min; Glucose 117 mg/dl (70-99); Potassium 3.7 mmol/L (3.5-5.1); Sodium 137 mmol/L (135-145); Total Protein 5.9 g/dl (6.3-8.2); eGFR 28.71
[2024-12-06] MEDS: PULMICORT 0.5 MG INH (07:39)
[2024-12-06 08:06] LABS: Glucose - Point of Care 115 mg/dl (70-99)
[2024-12-06] MEDS: NOVOLOG FLEXPEN-LOW RESISTANCE SC ×3 (08:43→18:25)
[2024-12-06] MEDS: XIFAXAN 550 MG PO ×2 (09:04→18:45)
[2024-12-06] MEDS: ZINC 50 MG PO (09:04)
[2024-12-06] MEDS: LASIX 60 MG IV ×2 (09:04→16:49)
[2024-12-06] MEDS: DUPHALAC/CHRONULAC 20 GRAMS PO (09:04)
[2024-12-06] MEDS: MUCINEX 600 MG PO ×2 (09:04→18:46)
[2024-12-06] MEDS: INDERAL 20 MG PO ×2 (09:04→18:44)
--- NOTE | 2024-12-06 09:04 | W.PN.HOSP.TC ---
Addendum entered and electronically signed by Jaswinder Cortes MD 12/06/24 15:24:
Read, reviewed, and agree. See same day progress note for additional details. Time spent reviewing records in EMR, med rec, consults, notes, d/w consultants, nursing, family, and CM
Addendum entered and electronically signed by Jaswinder Cortes MD 12/06/24 14:32:
Acute on chronic hepatic encephalopathy
Resolved
Continue lactulose
Continue rifaximin, awaiting to hear back from case management
Liver ultrasound with Doppler ordered
N.p.o. for ultrasound
HFrEF s/p ICD, NYHA class IV
Slightly uptrending creatinine however still remains at baseline similar to previous hospitalization
Will transition to oral diuretics
GDMT limited by CKD/MARIA DOLORES and baseline hypotension
Coreg has been discontinued in favor of propranolol
Nonischemic myocardial injury
Troponins from 0.03-0.05
Outpatient cardiology follow-up
VTE history
S/p ICD
Off Amio, from previous hospitalization reviewed cardiology and med dosages discussion that he would discuss Amio use with his outpatient automatic lathe operator Dr. Palafox
From EP note from this admission if VT noted may need to consider resuming Amio however difficult in setting of cirrhosis, or find alternative like sotalol or ablation
Read, reviewed, and agree. See same day progress note for additional details. Time spent reviewing records in EMR, med rec, consults, notes, d/w consultants, nursing, family, and CM
Original Note:
Today's Communication/Plan
-
Plan reviewed with attending
Assessment / Plan
Assessment / Plan
IMPRESSION: 74-year-old male with PMHx significant for cirrhosis with ascites, HFrEF, CAD s/p triple-vessel CABG, chronic HFrEF with EF of 35%, ventricular erythremia s/p ICD placement, type 2 diabetes, hypertension, chronic hepatic encephalopathy,
recent admission for radiation proctitis presents to the hospital for evaluation of lethargy and bright red blood per rectum. He is admitted to the hospital for evaluation of acute on chronic hepatic encephalopathy-day 5 of admission
Pt admitted for hepatic encephalopathy after being discharged over a week ago for acute decompensation of cirrhosis. Pt was prescribed rifaximin upon discharge, but unable to chicken picker due to no prior auth. Plan to send pt home today. F/u with
automatic lathe operator Friday.
Assessment and plan -
# Acute on chronic hepatic encephalopathy
Secondary to decompensated liver cirrhosis-unknown etiology.
Currently encephalopathy resolved-
Lactulose dose cut down half to maintain bowel [id number] daily
Continue rifaximin, patient oriented to person place and time. No asterixis.
GI signed off.
Liver US with doppler today
# Decompensated cirrhosis- thrombocytopenia, and ascites.
Platelet count at 56, patient reports no abnormal blood or bruising. Multiple skin bruises on bilateral upper extremities and and abdomen noted.
No history of alcohol use. Likely MASH versus hepatitis, hepatitis panel pending.
Alpha-1 antitrypsin results negative, patient might benefit from liver biopsy
S/p thoracocentesis, LFTs stable, monitor hemoglobin and platelets.
IV PPI twice daily. Diuresis held for MARIA DOLORES from decompensated cirrhosis.
Outpatient GI follow-up recommended.
# Ascites
secondary to portal hypertension from decompensated cirrhosis
No evidence of spontaneous bacterial peritonitis, currently on ceftriaxone.
S/p paracentesis, PMN count less than 250. Touch base with GI,
discontinue ceftriaxone.
# MARIA DOLORES on CKD stage IIIb -
Likely secondary to to a confluence of hepatorenal syndrome and cardiorenal syndrome
Hydration with IV Lasix held and suspicion for hepatorenal syndrome
Serum creatinine mildly trending up, currently at 2.2.
Follow serum creatinine, I's and O's closely.
May need eventual nephrology evaluation.
# Acute on chronic HFrEF with left-sided pleural effusion-
S/p thoracocentesis. Weight down by 7-8 kgs since admission.
Currently on IV Lasix 60 twice daily, monitor I's and O's, trend weights
Sodium and fluid restriction and diet.
Continue, KYLER/ARB, ANR I, MCA -contraindicated in MARIA DOLORES, and limited by hypotension. Propranolol started.
Continue to monitor BMP
# Acute blood loss anemia
Secondary to radiation proctitis
Hide flexible sigmoidoscopy on
Plavix discontinued, no bloody bowel movements today.
Aspirin resumed
Trend CBC, transfuse if Hb less than 7.
# VT/V-fib
Stable, MDT ICD in place
Continue amiodarone.
# COPD -
No history of smoking or alcohol use.
No family history of genetic deficiency
COPD and cirrhosis as both are unexplained
Outpatient pulmonology follow-up recommended.
On Acapella and spirometry.
# CAD s/p CABG-
Resumed patient's aspirin.
# NIDDM-
Previously on metformin, given CKD and MARIA DOLORES
Currently on insulin sliding scale.
# Diet-
Full liquid diet
# DVT prophylaxis-
SCD
# CODE STATUS-
Full code.
Anticipated Discharge: Today
Subjective/Interval History
-
Date of Service: December 06, 2024
Pt admitted for hepatic encephalopathy due to inability to receive outpt rifaximin. Today, pt reports feeling well. Denies confusion, weakness, tremors.
He has tolerated diet well. Consistent BM.
Objective Data
-
Labs:
Laboratory Results
12/06/24
03:44
WBC 5.1
Hgb 8.3 L
Hct 26.3 L
Plt Count 56 L
Sodium 137
Potassium 3.7
Chloride 106
Carbon Dioxide 25
BUN 77 H
Creatinine 2.3 H
Glucose 117 H
Calcium 8.5
Total Bilirubin 1.9 H
AST 118 H
ALT 152 H
Alkaline Phosphatase 147 H
Vital Signs:
Vital Signs
Temp Pulse Resp BP Pulse Ox
98.4 F 60 16 102/50 97
12/06/24 05:41 12/06/24 07:42 12/06/24 07:42 12/06/24 03:46 12/06/24 07:42
I&O
12/05/24 12/06/24 12/07/24
06:59 06:59 06:59
Intake Total 1374 / 1374 1200 / 1200
Output Total 1075 / 1075 1300 / 1300
Balance 299 / 299 -100 / -100
Review of Systems
-
History Source: Patient
All other systems: Reviewed and negative
Physical Exam
-
General: Well Developed, Well Nourished, No Apparent Distress, Comfortable and Appears Chronically Ill
HEENT: Normocephalic, Atraumatic and Moist Mucous Membranes
Respiratory: Wheezes and Non Labored Respirations
Cardiac: Regular Rhythm and S1/S2
GI: Soft, Nontender and Distended
Musculoskeletal: No Cyanosis and Other (pitting edema)
Skin: Warm and Dry
Neuro: AO x 3, No Motor Deficits, Nonfocal/Grossly Intact and Other (no asterixis)
Psych: Calm
--- NOTE | 2024-12-06 09:08 | W.PN.CD ---
Today's Communication / Plan
-
IV diuresis
cont meds
Impression / Plan
-
HFrEF/ICM - EF 35%.
- recurrent left pleural effusion s/p thoracentesis 1200ml removed today.
- s/p paracentesis 2500ml removed as well.
- IV Lasix 60mg BID as BP tolerates.
- GDMT limited by CKD/MARIA DOLORES and baseline hypotension.
- coreg had been stopped in favor of Propranolol.
Nonischemic myocardial injury - acute in the setting of acute hfref, hepatic encephalopathy and acute anemia hgb 7.9
- troponin trend 0.038, 0.045, 0.050.
- Hgb is stable.
- Thrombocytopenia in setting of liver injury and GI bleed. OK to hold ASA for now.
VT - prior ICD shocks in 2020.
- has been on amiodarone since 2020 at 400mg daily until 1 month ago when primary sleeve tailor reduced it to 200mg daily.
- MDT ICD in place, no recent discharges.
- difficult situation using amiodarone with underlying cirrhosis (managed by Dr. Butt as outpatient).
- off amio
- Continue to monitor VT episodes.
- If VT noted, will have to either restart Amio, find an alternative (Sotalol) or opt for ablation.
- At this time,lets be hopeful that the LFTs would improve.
CAD - s/p CABG.
- stable w/o angina.
- resumed aspirin
Anemia - acute on chronic.
- recurrent BRBPR.
- radiation proctitis.
-GI has been consulted
Hepatic encephalopathy - acute.
- per GI/hospitalist.
Subjective: feeling improved
Physical Exam
Vital Signs/Labs
Vital Signs
Temp Pulse Resp BP Pulse Ox
98.4 F 60 16 102/50 97
12/06/24 05:41 12/06/24 07:42 12/06/24 07:42 12/06/24 03:46 12/06/24 07:42
12/05/24 12/06/24 12/07/24
06:59 06:59 06:59
Actual Weight 215 lb 2.738 oz 215 lb 9.793 oz
12/06/24 03:44
12/06/24 03:44
PT 17.8 Sec (11.4-14.6) H 12/05/24 03:51
INR 1.44 12/05/24 03:51
APTT 33.0 Sec (23.4-35.0) 12/02/24 19:11
Magnesium 2.5 mg/dl (1.6-2.3) H 12/03/24 02:02
Triglycerides 95 mg/dl (10-149) 12/04/24 03:33
LDL Cholesterol, Calc 86 mg/dl 12/04/24 03:33
VLDL Cholesterol, Calc 19 mg/dl (0-30) 12/04/24 03:33
HDL Cholesterol 29 mg/dl 12/04/24 03:33
12/02/24
19:11
Ous-A-Noodzvwxbkj Pept 2540
LAB Results
12/03/24 12/03/24
09:15 16:14
Troponin I 0.050 H* 0.044 H*
Physical Exam
Constitutional: No acute distress and Comfortable
EENT: Anicteric
Cardiovascular: Rhythm & rate is regular and Pedal edema present
Respiratory: Respiratory effort normal and Other (Lower left side blunted b/s)
GI: Soft
Neuro/Psych: Alert and Oriented
Data Reviewed
-
Date of Service: December 06, 2024
EKG: Tracing Personally Visualized and interpreted (paced)
Echo: Report Reviewed by me
Labs: Labs Reviewed by me
--- NOTE | 2024-12-06 09:41 | CM ---
Addendum entered by Shannen Jessica 12/06/24 11:32:
left for patient pharmacy asking to clarify if patient could picker machine operator his medication Rifaximin at patient physician request. [facility] to call patient back with clarification.
Original Note:
Patient seen at bedside with patient spouse also present. [facility] completed and signed form placed on chart. Patient asking for [facility] referral and CM sent tt to Liaison. CM will continue to follow for discharge planning needs.
Plan; home with [facility] pending acceptance.
--- NOTE | 2024-12-06 10:22 | PTCARENOTE ---
Patient AAOx3, states feeling well. BPs soft, all other VSS. AV paced. +1 pitting LE edema. at bedside. Patient making needs known. Will continue to closely monitor.
[2024-12-06 18:24] LABS: Glucose - Point of Care 125 mg/dl (70-99)
--- NOTE | 2024-12-06 18:45 | W.DCSUMMARY ---
Discharge Summary
Discharge Data
Date of Admission: 12/02/24
Date of Discharge: 12/06/24
-
Pending Results: No
Hospital Course
74yoM PMH PAD s/p stent, CAD s/p CABG, COPD, cirrhosis, IDDM presenting with hepatic encephalopathy and small amount of BRBPR.
AFVSS, hemodynamically stable. Fluid overloaded, third spacing, somnolent with pronounced asterixis, 1 bout of blood with BM, reports significantly less blood than last admission. Ammonia 239. Troponin 0.05. Hg decreased to 7.9 from 9.1. Plt
62. Cr 1.9 BUN 87. Given unknown cause for both cirrhosis, COPD, testing for alpha 1 antitrypsin was performed and resulted as 177 WNL.
12/03: thoracentesis, paracentesis, increase lactulose dose, restart rifaximin. Both found to be exudative, no concern for SBP
Continue diuresis, rifaximin, lactulose titrated by GI to 20mg BID. Hepatic encephalopathy resolving, continued to adjust GDMT. Once pt stabilized with no further BRBPR, aspirin restarted. Carvedilol changed to propranolol. Liver US with doppler
performed. Distal anterior forearm superficial thrombophlebitis found.
Worked with case management and pharmacy to secure rifaximin. Pt represented in 1 week without rifaximin, in need of medicine to prevent hepatic encephalopathy. Called outpt salt miner for future prior auth needed. Pt provided doses until
hepatology appointment this friday.
Discharge Plan
-
Patient Disposition: Home (Routine Discharge)
Discharge Diagnosis/Procedures: hepatic encephalopathy
Diet: Low Cholesterol, Low Sodium and Diabetic, Carb Controlled
Activity: As tolerated
Additional Activity: home PT
Driving Restrictions: As prior to admission
Other Services: VN and PT
Instructions: *PCP/Other Screw Machine Operator Heart Failure Instructions
Referrals:
Ronald Butt MD [Non-Admitting Privileges, Gastroenterology]
Shanel Mendenhall MD [Family Provider, Family Practice]
Additional Discharge Medication Instructions: Take your rifaximin twice a day. Take propranolol instead of carvedilol.
Prescriptions:
New
propranolol 20 mg Tablet
20 mg PO BID 30 Days Qty: 60 0RF
Continued
ascorbic acid (vitamin C) [Vitamin C] 500 MG tablet
500 mg PO DAILY
folic acid 0.4 MG tablet
0.4 mg PO HS Qty: 0 0RF
aspirin 81 MG tablet,delayed release (DR/EC)
81 mg PO HS Qty: 0 0RF
Patient Comments:
patient received 4 baby asa this am
multivitamin with folic acid [Tab-A-Petar] 1 TABLET tablet
1 tab PO HS Qty: 0 0RF
ferrous sulfate 325 mg (65 mg iron) Capsule, Extended Release
325 mg PO DAILY
furosemide 80 mg Tablet
80 mg PO BID@0800,1600 30 Days Qty: 60 0RF
Xifaxan 550 mg Tablet
550 mg PO BID 30 Days Qty: 60 0RF
Rx Instructions:
Pt can not get this filled per .
rosuvastatin 20 MG tablet
10 mg PO HS 30 Days Qty: 30 0RF
insulin lispro [Humalog KwikPen Insulin] 100 unit/mL Insulin Pen
5 unit SC AC 30 Days Qty: 90 0RF
albuterol 90 mcg/actuation Aerosol
180 mcg INHALATION Q4 PRN (Reason: wheezing)
fluticasone propion-salmeterol [Advair HFA] 45-21 mcg/actuation Hfa Aerosol Inhaler
2 puff INHALATION BID
guaifenesin [Mucinex] 600 mg Tablet Extended Release 12hr
600 mg PO BID
Spiriva Respimat 2.5 mcg/actuation mist
2 puff inhalation DAILY
Changed
lactulose 10 gram/15 mL Solution
20 g PO BID 30 Days Qty: 900 0RF
Discontinued
amiodarone [Pacerone] 200 MG tablet
200 mg PO DAILY
fluticasone propion-salmeterol 230-21 mcg/actuation Hfa Aerosol Inhaler
2 puff inhalation R BID 30 Days Qty: 12 0RF
carvedilol 12.5 MG tablet
6.25 mg PO BID 30 Days Qty: 60 0RF
No Action
(DME) blood-glucose meter [ReliOn All-In-One Meter] Kit
Qty: 1 0RF
Rx Instructions:
As Directed
(DME) lancets-blood glucose strips 30 gauge combo pack
See Rx Instructions .Route Qty: 200 0RF
Rx Instructions:
As directed
Discharge Orders:
Discharge Patient (As Directed); Ordered 12/06/24
Ordered By: Nicolasa Gutierrez
Discharge Date and Time
Print Language: BRITISH
--- NOTE | 2024-12-06 19:38 | PTCARENOTE ---
DC packet reviewed with patient and . IV and tele removed. All questions answered. Taken to lobby by wheelchair.
[2024-12-06] MEDS: PULMICORT INH (19:42)
--- NOTE | 2024-12-07 15:04 | W.HF.CON ---
Heart Failure
- LV Function
Left ventricular function study result: LV Ejection fraction </= 35% (ECHO 11/12/24)
Ejection Fraction Percentage: 35
- ARNI
Patient already on ARNI: No
Heart Failure ARNI Contraindication: Acute Renal Failure
- ACEI/ARB
Patient already on ACEI/ARB: No
Heart Failure ACEI/ARB Contraindication: Acute Renal Failure
- Beta Mell
Patient already on Evidence Based Beta Mell: No (propanolol preferred)
Heart Failure Evidence Based Beta Mell: Patient Refusal
- Mineralocorticord Receptor Antagonist
Patient already on MRA: No
Heart Failure MRA Contraindication: Acute Renal Insufficiency
- SGLT-2 Inhibitor
Patient already on SGLT-2 Inhibitor: No
Heart Failure SGLT-2 Inhibitor Contraindication: Patient Refusal
- NYHA CHF Classification
NYHA CHF Classification Level: Class III - Symptoms w/ min exertion, interferes w/ nml daily activity
- ACC/AHA Stage
ACC/AHA Stage: Stage C: Symptomatic Heart Failure
== END 2024-12-06 19:46 | disposition home health service (06) | DRG 432 ==
LOC: IMU 22:39
PROVIDERS: Internal Medicine; Radiology Vascular & Interventional Radiology; Student in an Organized Health Care Education/Training Program; ADMITTING PHYSICIAN Hospitalist; ATTENDING PHYSICIAN Hospitalist; CONSULT PHYSICIAN Internal Medicine; CONSULT PHYSICIAN Internal Medicine Gastroenterology; EMERGENCY PHYSICIAN Emergency Medicine; FAMILY PHYSICIAN Student in an Organized Health Care Education/Training Program
PROC: 0W9B3ZZ Drainage of Left Pleural Cavity, Percutaneous Approach (ICD-10-PCS; 2024-12-03)
PROC: 0W9G3ZZ Drainage of Peritoneal Cavity, Percutaneous Approach (ICD-10-PCS; 2024-12-03)
DX: K74.60 Unspecified cirrhosis of liver (principal); I49.01 Ventricular fibrillation; I50.23 Acute on chronic systolic (congestive) heart failure; K55.21 Angiodysplasia of colon with hemorrhage; I13.0 Hypertensive heart and chronic kidney disease with heart failure and stage 1 through stage 4 chronic kidney disease, or unspecified chronic kidney disease; R18.8 Other ascites; D62 Acute posthemorrhagic anemia; I5A Non-ischemic myocardial injury (non-traumatic); N17.9 Acute kidney failure, unspecified; Z11.52 Encounter for screening for COVID-19; K76.82 Hepatic encephalopathy; Z87.891 Personal history of nicotine dependence; D69.6 Thrombocytopenia, unspecified; I25.10 Atherosclerotic heart disease of native coronary artery without angina pectoris; N18.30 Chronic kidney disease, stage 3 unspecified; E11.22 Type 2 diabetes mellitus with diabetic chronic kidney disease; J44.9 Chronic obstructive pulmonary disease, unspecified; I48.91 Unspecified atrial fibrillation; Y84.2 Radiological procedure and radiotherapy as the cause of abnormal reaction of the patient, or of later complication, without mention of misadventure at the time of the procedure; K62.7 Radiation proctitis; I80.9 Phlebitis and thrombophlebitis of unspecified site; Z59.71 Insufficient health insurance coverage; Z79.4 Long term (current) use of insulin; Z79.899 Other long term (current) drug therapy; Z85.46 Personal history of malignant neoplasm of prostate; Z92.3 Personal history of irradiation
CPT/HCPCS: 32555; 49083; 71045; 71046; 71250; 76700; 80053; 80061; 81003; 81015; 82103; 82140; 82248; 82805; 82962; 83605; 83615; 83735; 83880; 83986; 84100; 84157; 84484; 85018; 85025; 85027; 85610; 85730; 86704; 86705; 86706; 86708; 86709; 86803; 87015; 87070; 87205; 87340; 87502; 87811; 88112; 88305; 89051; 93005; 93289; 93971; 93975; 94640; 96374; 96375; 97116; 97163; 97167; 97535; 99291

== ENCOUNTER → 2024-12-16 12:38 | Outpatient (REF) | payer MEDICARE, OTHER, SELFPAY ==
[2024-12-16 13:25] VITALS: BP 84/45; BP_SYST 60
[2024-12-16 13:36] VITALS: BP 102/51; BP_SYST 60
== END ==
LOC: RADI 12:38
PROVIDERS: ATTENDING PHYSICIAN Nurse Practitioner Family
DX: J90 Pleural effusion, not elsewhere classified (principal)
CPT/HCPCS: 32555; 71045

== ENCOUNTER → 2024-12-21 10:22 | Outpatient (REF) | payer MEDICARE, OTHER, SELFPAY ==
[2024-12-21 10:32] VITALS: BP 102/54; BP_SYST 70
[2024-12-21 11:11] VITALS: BP 90/44; BP_SYST 60
[2024-12-21 11:17] VITALS: BP 95/44; BP_SYST 60
[2024-12-21 11:29] VITALS: BP 95/53
[2024-12-21 12:00] LABS: Body Fluid Second Tech CF
== END ==
LOC: RADI 10:22
PROVIDERS: ATTENDING PHYSICIAN Internal Medicine Gastroenterology
DX: R18.8 Other ascites (principal)
CPT/HCPCS: 49083; 89051

== ENCOUNTER → 2024-12-22 13:12 | Outpatient (REF) | payer MEDICARE, OTHER, SELFPAY ==
[2024-12-22 14:12] LABS: Hematocrit 26.5 % (39.0-52.0); Hemoglobin 8.5 g/dL (13.0-18.0); Mean Corp Hgb Conc. 32.1 g/dL (33.0-37.0); Mean Corpuscular Volume 103.5 fL (80.0-94.0); Nucleated Red Blood Cells % 0 % (-); Platelet Count 77 10^3/uL (130-400); Red Cell Dist. Width 17.6 % (11.5-14.5); Reticulocyte Count 5.1 % (0.4-2.8)
[2024-12-22 15:45] LABS: Iron 64 ug/dl (49-181)
[2024-12-22 15:54] LABS: Total Iron Binding Capacity 294 ug/dl (261-462)
[2024-12-22 16:21] LABS: Ferritin 134.0 ng/ml (17.9-464.0)
== END ==
LOC: REG 13:12
PROVIDERS: ATTENDING PHYSICIAN Internal Medicine Hematology & Oncology; FAMILY PHYSICIAN Student in an Organized Health Care Education/Training Program
DX: D61.818 Other pancytopenia (principal); D69.6 Thrombocytopenia, unspecified; N18.30 Chronic kidney disease, stage 3 unspecified; D63.1 Anemia in chronic kidney disease
CPT/HCPCS: 36415; 82668; 82728; 83540; 83550; 85025; 85045

== ENCOUNTER 2024-12-26 15:10 | Inpatient (IN) | payer MEDICARE, OTHER, SELFPAY ==
[2024-12-26] VITALS (24 sets, daily range): BP systolic 91–122; BP diastolic 42–61
--- NOTE | 2024-12-26 11:03 | ED.GENMED ---
History of Present Illness
<Lilibeth Kiran PA-C - Last Filed: 12/26/24 17:19>
General
Chief Complaint: Rectal Bleeding
Source: patient, records and ambulance crew
Exam Limitations: none
Time Seen by Provider: 12/26/24 10:51
History of Present Illness
History of Present Illness:
74yoM with a history of coronary artery disease s/p CABG, CHF with EF of 35% and AICD, peripheral artery disease, cirrhosis, insulin-dependent type 2 diabetes, hyperlipidemia presenting via EMS for evaluation of rectal bleeding. Patient reports
bright red rectal bleeding that started yesterday evening around 6 PM and continued throughout the night. He is feeling very weak and fatigued. He has been admitted twice recently for rectal bleeding. He underwent flex sig on 11/12 which showed
multiple angiectasia's and intervention was performed. 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 His only current blood thinner is aspirin. He required thoracentesis and paracentesis during his last hospitalization. He
currently denies any shortness of breath, chest pain, dizziness, syncope, abdominal pain. Systolic blood pressures were in the 90s on EMS arrival. Patient takes midodrine for chronic hypotension.
arrived after initial exam and provided additional history. Patient was initiated on metolazone 5 mg four days ago which was started by his embroidery designer. Patient has lost over 11 pounds since then and is worried that he is now dehydrated.
Phy Exam
<Lilibeth Kiran PA-C - Last Filed: 12/26/24 17:19>
Physical Exam
Physical Exam:
Chronically ill appearing male, no apparent distress
General Physical Exam
General Presentation: no apparent distress
General Skin: warm and dry
General Habitus: normal and elderly
General Mental: alert
Cardiovascular Exam
Cardiovascular Exam: regular rate/rhythm and other (2+ pitting edema in lower extremities which he states is better than usual)
Pulmonary Exam
Pulmonary Exam: no respiratory distress and other (Decreased breath sounds in L lung base)
Gastrointestinal Exam
Gastrointestinal Exam: non tender and soft
Rectal Exam: other (Maroon stool on digital rectal exam)
Neurological Exam
Neurological Exam: alert
[place] Coma Scale
Eye Opening: Spontaneous
Verbal Response: Oriented
Motor Response: Obeys Commands
GCS Total Score: 15
Skin Exam
Skin Exam: warm/dry
Psychiatric Exam
Psychiatric Exam: normal mood/affect
Course
<Lilibeth Kiran PA-C - Last Filed: 12/26/24 17:19>
Orders/Labs/Results
Orders:
Orders
12/26/24 10:54
Electrocardiogram (*1) Urgent
Reason for Study: Fatigue / Weakness
12/26/24 10:55
EKG- Treatment ONCE
12/26/24 10:57
Type+Screen Urgent
Complete Blood Count/With Diff Urgent
Comprehensive Metabolic Panel Urgent
Magnesium Urgent
Comment: ADD ON
Prothrombin Time Urgent
12/26/24 11:01
CR Chest - 2 Views Urgent
Comment:
Reason For Exam: decreased breath sounds on L
12/26/24 11:15
NT-proBNP Urgent
12/26/24 11:29
Add On- LAB Urgent
Tests Added?: magnesium
Potassium Chloride [KCl] 40 meq PO NOW STA
12/26/24 11:44
Potassium Chloride [KCl] 20 meq 0.9% Sodium Chloride 250 ml [Nss] 250 ml IV NOW
12/26/24 11:46
Blood Bank Products [* Blood Bank Products] Urgent
Blood Bank Products: *Packed RBC Leuko (PRBC's
Quantity: 1
Transfuse Today: Yes
Reason: Bleeding
12/26/24 11:57
Midodrine [ProAmatine] 5 mg PO NOW STA
12/26/24 12:36
Osmolality, Random Urine Urgent
Date Specimen was Collected: 12/26/24
Time Specimen was Collected: 11:40
Urine Sodium Urgent
Date Specimen was Collected: 12/26/24
Time Specimen was Collected: 11:40
12/26/24 14:18
Admit/Transfer Patient As Directed
Co-Sign Provider:
Level of Care: Inpatient admission
Assign to:: IMU- Intermediate Care
Physician / Group: hospitalist
Diagnosis: MARIA DOLORES, acute GI bleeding
Reason for Hospitalization: MARIA DOLORES, acute GI bleeding
Expected length of stay greater than two midnights?: Yes
ELOS- Estimated Length of Stay in days: 2
I certify the patient meets the requirements for IP care: Yes
12/26/24 14:19
PRN Pain Medication Management As Directed
May give lesser potent ordered pain med per pt: Yes
preference::
Protocol:: Medication orders for pain may be administered in a
manner that supports deferring to patient preference
when the pt is:
- Requesting an ordered lesser potent pain medication.
Least to most potent pain medications are defined
as: acetaminophen < NSAID < tramadol < opioids
(morphine, oxycodone, hydromorphone).
- Requesting a lesser dose of the same medication IF
ORDERED.
- Requesting a less intrusive route of administration
if both routes are prescribed by the provider (PO <
IV).
12/26/24 14:28
Code Status As Directed
Resuscitation Status: Full Code
Abnormal Lab Results
12/26/24
10:57
RBC 2.47 L 10^6/uL
(4.70-6.10)
Hgb 8.4 L g/dL
(13.0-18.0)
Hct 24.9 L %
(39.0-52.0)
MCV 100.8 H fL
(80.0-94.0)
MCH 34.0 H pg
(27.0-31.0)
RDW 17.1 H %
(11.5-14.5)
Plt Count 64 L 10^3/uL
(130-400)
MPV 10.7 H fL
(7.4-10.4)
Absolute Neuts (auto) 8.6 H 10^3/uL
(1.4-6.5)
Absolute Lymphs (auto) 0.4 L 10^3/uL
(1.2-3.4)
Absolute Monos (auto) 0.8 H 10^3/uL
(0.1-0.6)
Neutrophils % 87.3 H %
(42.2-75.2)
Lymphocytes % 3.8 L %
(20.5-51.1)
PT 16.9 H Sec
(11.4-14.6)
Sodium 125 L mmol/L
(135-145)
Potassium 2.7 L* mmol/L
(3.5-5.1)
Chloride 88 L mmol/L
(98-107)
Carbon Dioxide 32 H mmol/L
(22-30)
BUN 86 H mg/dl
(9-20)
Creatinine 3.1 H mg/dL
(0.7-1.3)
Glucose 120 H mg/dl
(70-99)
Calcium 7.9 L mg/dl
(8.4-10.2)
Magnesium 2.6 H mg/dl
(1.6-2.3)
Total Bilirubin 3.0 H mg/dl
(0.2-1.3)
AST 109 H U/L
(17-59)
ALT 102 H U/L
(0-50)
Alkaline Phosphatase 178 H U/L
(38-126)
Total Protein 5.8 L g/dl
(6.3-8.2)
Albumin 2.7 L g/dl
(3.5-5.0)
Crossmatch IS Only See Detail
12/26/24 10:57
12/26/24 10:57
Vital Signs
Initial and Last Documented VS:
Initial Vital Signs
Temp Pulse Resp BP Pulse Ox
97.6 F 82 18 99/50 95
12/26/24 10:55 12/26/24 10:55 12/26/24 10:55 12/26/24 10:55 12/26/24 10:55
Last Documented Vital Signs
Temp Pulse Resp BP Pulse Ox
97.7 F 75 18 113/56 94
12/26/24 15:25 12/26/24 15:25 12/26/24 15:25 12/26/24 15:25 12/26/24 15:25
<Tyrone Patel MD - Last Filed: 12/26/24 13:00>
Orders/Labs/Results
Orders:
Orders
12/26/24 10:54
Electrocardiogram (*1) Urgent
Reason for Study: Fatigue / Weakness
12/26/24 10:55
EKG- Treatment ONCE
12/26/24 10:57
Type+Screen Urgent
Complete Blood Count/With Diff Urgent
Comprehensive Metabolic Panel Urgent
Magnesium Urgent
Comment: ADD ON
Prothrombin Time Urgent
12/26/24 11:01
CR Chest - 2 Views Urgent
Comment:
Reason For Exam: decreased breath sounds on L
12/26/24 11:15
NT-proBNP Urgent
12/26/24 11:29
Add On- LAB Urgent
Tests Added?: magnesium
Potassium Chloride [KCl] 40 meq PO NOW STA
12/26/24 11:44
Potassium Chloride [KCl] 20 meq 0.9% Sodium Chloride 250 ml [Nss] 250 ml IV NOW
12/26/24 11:46
Blood Bank Products [* Blood Bank Products] Urgent
Blood Bank Products: *Packed RBC Leuko (PRBC's
Quantity: 1
Transfuse Today: Yes
Reason: Bleeding
12/26/24 11:57
Midodrine [ProAmatine] 5 mg PO NOW STA
12/26/24 12:36
Osmolality, Random Urine Urgent
Date Specimen was Collected: 12/26/24
Time Specimen was Collected: 11:40
Urine Sodium Urgent
Date Specimen was Collected: 12/26/24
Time Specimen was Collected: 11:40
12/26/24 14:18
Admit/Transfer Patient As Directed
Co-Sign Provider:
Level of Care: Inpatient admission
Assign to:: IMU- Intermediate Care
Physician / Group: hospitalist
Diagnosis: MARIA DOLORES, acute GI bleeding
Reason for Hospitalization: MARIA DOLORES, acute GI bleeding
Expected length of stay greater than two midnights?: Yes
ELOS- Estimated Length of Stay in days: 2
I certify the patient meets the requirements for IP care: Yes
12/26/24 14:19
PRN Pain Medication Management As Directed
May give lesser potent ordered pain med per pt: Yes
preference::
Protocol:: Medication orders for pain may be administered in a
manner that supports deferring to patient preference
when the pt is:
- Requesting an ordered lesser potent pain medication.
Least to most potent pain medications are defined
as: acetaminophen < NSAID < tramadol < opioids
(morphine, oxycodone, hydromorphone).
- Requesting a lesser dose of the same medication IF
ORDERED.
- Requesting a less intrusive route of administration
if both routes are prescribed by the provider (PO <
IV).
12/26/24 14:28
Code Status As Directed
Resuscitation Status: Full Code
Abnormal Lab Results
12/26/24
10:57
RBC 2.47 L 10^6/uL
(4.70-6.10)
Hgb 8.4 L g/dL
(13.0-18.0)
Hct 24.9 L %
(39.0-52.0)
MCV 100.8 H fL
(80.0-94.0)
MCH 34.0 H pg
(27.0-31.0)
RDW 17.1 H %
(11.5-14.5)
Plt Count 64 L 10^3/uL
(130-400)
MPV 10.7 H fL
(7.4-10.4)
Absolute Neuts (auto) 8.6 H 10^3/uL
(1.4-6.5)
Absolute Lymphs (auto) 0.4 L 10^3/uL
(1.2-3.4)
Absolute Monos (auto) 0.8 H 10^3/uL
(0.1-0.6)
Neutrophils % 87.3 H %
(42.2-75.2)
Lymphocytes % 3.8 L %
(20.5-51.1)
PT 16.9 H Sec
(11.4-14.6)
Sodium 125 L mmol/L
(135-145)
Potassium 2.7 L* mmol/L
(3.5-5.1)
Chloride 88 L mmol/L
(98-107)
Carbon Dioxide 32 H mmol/L
(22-30)
BUN 86 H mg/dl
(9-20)
Creatinine 3.1 H mg/dL
(0.7-1.3)
Glucose 120 H mg/dl
(70-99)
Calcium 7.9 L mg/dl
(8.4-10.2)
Magnesium 2.6 H mg/dl
(1.6-2.3)
Total Bilirubin 3.0 H mg/dl
(0.2-1.3)
AST 109 H U/L
(17-59)
ALT 102 H U/L
(0-50)
Alkaline Phosphatase 178 H U/L
(38-126)
Total Protein 5.8 L g/dl
(6.3-8.2)
Albumin 2.7 L g/dl
(3.5-5.0)
Crossmatch IS Only See Detail
12/26/24 10:57
12/26/24 10:57
Vital Signs
Initial and Last Documented VS:
Initial Vital Signs
Temp Pulse Resp BP Pulse Ox
97.6 F 82 18 99/50 95
12/26/24 10:55 12/26/24 10:55 12/26/24 10:55 12/26/24 10:55 12/26/24 10:55
Last Documented Vital Signs
Temp Pulse Resp BP Pulse Ox
97.7 F 75 18 113/56 94
12/26/24 15:25 12/26/24 15:25 12/26/24 15:25 12/26/24 15:25 12/26/24 15:25
<Lilibeth Kiran PA-C - Last Filed: 12/26/24 17:19>
MDM/Problems Addressed
Differential Diagnosis Includes:
74yoM here with rectal bleeding. Multiple recent admissions for the same. Hx of cirrhosis and radiation proctitis. BP 99/50 on arrival which is baseline per patient and he does take midodrine normally. Maroon stool on OMER. Differential diagnosis
includes: radiation proctitis, AVM, diverticular bleeding, hemorrhoidal bleeding, acute blood loss anemia
Initial ED plan: Check CBC, CMP, INR, BNP, type and screen, EKG, and CXR.
<Lilibeth Kiran PA-C - Last Filed: 12/26/24 17:19>
*Pulse Oximetry
SaO2: 95
Oxygen Mode of Delivery: Room air
Patient hypoxic: no
*EKG
Interpreted by ED Provider?: Yes
EKG Intrepretation Date: 12/26/24
Heart Rate: 75
Rate: normal
Rhythm: av sequential
[place]: normal axis
Ischemia: no ischemia
*Critical Care Note
Total Time (30-74mins, 75-104mins- exclusive of procedures): Not Applicable
<Lilibeth Kiran PA-C - Last Filed: 12/26/24 17:19>
Update Note
Update Note:
Labs reveal a sodium of 125, potassium 2.7, and creatinine of 3.1 (up from 2.3 earlier this month). Potassium replacement ordered. These abnormalities may be due to overdiuresis given recent addition of metolazone. Patient does have pitting edema
in his lower extremities although both patient and family state this is better than baseline. BP dropped to the 80s and 1 unit PRBCs ordered for transfusion. Patient admitted for further management.
ED Attending Note
<Lilibeth Kiran PA-C - Last Filed: 12/26/24 17:19>
-
Portions of this chart may have been created with voice recognition software.� Occasional wrong word or��sound alike� substitutions may have occurred due to the inherent limitations of voice recognition software.
<Tyrone Patel MD - Last Filed: 12/26/24 13:00>
ED Attending Note
Patient seen and examined by attending physician: Yes
ED Attending Note:
I have seen and evaluated the patient with a [id number] encounter. I have spoken to the advance practicer provider and involved in the medical history, the physical exam, medical decision making.
Evaluation and management service: agree unless noted differently below.
Results interpretation: agree unless noted differently below.
Focused HPI: 74-year-old male with extensive medical history including cirrhosis, CAD status post CABG, PAD, diabetes who presents to the ER with his family for evaluation of rectal bleeding. Patient says that he has had 3-4 episodes of bright red
blood mixed with clots per rectum over the past 12 hours. He reports subjectively feeling very weak and fatigued. He denies any abdominal pain. Denies chest pain or shortness of breath and denies being dizzy. He is on aspirin but no other blood
thinners. He had a recent admission with similar GI bleeding attributed to his radiation proctitis as well as hepatic encephalopathy, pleural effusions requiring thoracentesis, ascites requiring paracentesis. Lactulose increased and case
management help to secure rifaximin as well.
Physical exam: Patient is awake and alert. Appears pale. Soft blood pressure heart rate in the 80s, normothermic with no hypoxia or tachypnea. Breath sounds diminished at the left greater than right lung base. He does have some ascites on exam
but no abdominal tenderness. Gross blood noted on rectal exam per PA. He has anasarca.
Medical Decision Makin-year-old male presents with rectal bleeding. Vitals and exam as above. Labs show anemia with hemoglobin of 8.4. He has acute hyponatremia, hypokalemia, acute kidney injury, transaminitis. He appears volume overloaded
with diminished breath sounds and marked edema. Plan to transfuse PRBCs for symptomatic anemia as well as for some intravascular volume resuscitation. Will replete electrolytes. Send urine studies. Admit for continued management.
Discharge Plan
Departure
Patient Disposition: Admit
Date of Disposition: 12/26/24
Time of Disposition: 12:02
Presentation/result/management discussed w/ accepting MD/DO: Hospitalist
Discharge Problem:
GI bleed, Acute kidney injury, Hyponatremia, Hypokalemia
Interventions
Interventions:
*Risk Screen - Suicide Last Done: 12/26/24 10:55
*General Assessment Last Done: 12/26/24 10:55
*Neglect/Abuse Screening Last Done: 12/26/24 10:55
RO-Bclihz-Uribdvncps Assessment Last Done: 12/26/24 11:37
ED- Cardiac Assessment Last Done: 12/26/24 11:37
ED- Pulmonary Assessment Last Done: 12/26/24 11:37
[2024-12-26 11:15] LABS: Hematocrit 24.9 % (39.0-52.0); Hemoglobin 8.4 g/dL (13.0-18.0); Mean Corp Hgb Conc. 33.7 g/dL (33.0-37.0); Mean Corpuscular Volume 100.8 fL (80.0-94.0); Nucleated Red Blood Cells % 0 % (-); Platelet Count 64 10^3/uL (130-400); Red Cell Dist. Width 17.1 % (11.5-14.5)
[2024-12-26 11:20] LABS: INR 1.34; PT 16.9 Sec (11.4-14.6)
[2024-12-26 11:28] LABS: ALT (SGPT) 102 U/L (0-50); AST (SGOT) 109 U/L (17-59); Albumin 2.7 g/dl (3.5-5.0); Alkaline Phosphatase 178 U/L (38-126); Blood Urea Nitrogen 86 mg/dl (9-20); Calcium 7.9 mg/dl (8.4-10.2); Carbon Dioxide 32 mmol/L (22-30); Chloride 88 mmol/L (98-107); Glucose 120 mg/dl (70-99); Potassium 2.7 mmol/L (3.5-5.1); Sodium 125 mmol/L (135-145); Total Protein 5.8 g/dl (6.3-8.2); eGFR 20.07
[2024-12-26] MEDS: KCL 40 MEQ PO (11:45)
[2024-12-26] MEDS: KCL 260 MEQ IV (12:33)
[2024-12-26 13:38] LABS: Magnesium 2.6 mg/dl (1.6-2.3)
--- NOTE | 2024-12-26 15:17 | HPS.HSE ---
Addendum entered and electronically signed by Juventino Reyes MD 12/26/24 17:38:
I personally performed a history and physical exam of the patient and discussed management with the resident. I reviewed the resident's note and agree with the documented findings and plan of care HPI/CC.
General: Other (Not in acute distress, appears pale)
HEENT: NormoCephalic and Atraumatic
Respiratory: Decreased Breath Sounds (Left basal)
Cardiac: S1/S2 and Regular Rhythm; No Murmur
GI: Soft, Non Tender and Distended
Musculoskeletal: Other (2+ bilateral pitting edema lower extremity)
Neuro: Awake, Alert, Oriented and AO x 3
Acute on chronic anemia likely secondary to bleeding from radiation proctitis.� Recent flex sig showed radiation proctitis.
GI consult
1 unit PRBC and monitor
NPO per GI for procedure
History of ascites with portal hypertension secondary to cirrhosis
Recent paracentesis earlier this week
Monitor
History of left sided pleural effusion status post recent Thora
Monitor
Hyponatremia
Replete
MARIA DOLORES on CKD
Recently started on metolazone along with Lasix
Discussed with nephrology, will hold Lasix and metolazone and monitor
Monitor volume status
Chronic CHF with reduced EF/ischemic cardiomyopathy with EF 35%
Cardiology evaluation
Monitor volume status closely
Will need to evaluate if need another thoracentesis if do not improve
History of VT
ICD in place, monitor
CAD status post CABG
Hyponatremia
Monitor with blood transfusion, discussed with nephrology.� Will repeat BMP later today
Nephrology consulted
History hepatic encephalopathy
Continue rifaximin, lactulose
DVT prophylaxis
SCDs
Full code
I spent a total of 78 minutes with the patient or on the floor. More than 50% of this time involved counseling and coordination of care.
Original Note:
Family Physician
-
Family Physician: NOT KNOW UNKNOWN - PT DOES
Chief Complaint
-
Acute bleeding per rectum
History of Present Illness
74-year-old male presented to the ER reporting bleeding per rectum. Has a past medical history significant for cirrhosis with ascites, HFrEF, CAD s/p CABG X3, hypertension, type II DM, prostate cancer s/p radiation, V. tach s/p ICD, peripheral
arterial disease s/p stenting. Patient had multiple admissions, recent admission�10 to 20% 5�10 08/20/2024 for confusion and rectal bleeding. Patient also reports that he had worsening lower extremity edema in the past 1 week, called his
insight leader who advised him to start taking metolazone. He lost 6 pounds in 4 days on metolazone, was advised to take half the dose of metolazone. He reports subjectively feeling very weak and fatigued. He denies any abdominal pain. Patient
underwent thoracocentesis and paracentesis in the past week. Patient denies any chills/fevers, abdominal pain, chest pain, palpitations, hematemesis.
Medical History
Past Medical History
Past Medical History: Reports Other (Radiation proctitis, prostate cancer s/p radiation, rectal bleeding, cirrhosis with hepatic encephalopathy, CHF, ascites,)
Past Surgical History: Reports Other (Left femoral endarterectomy, bilateral iliac artery stents)
Social History
Tobacco: Former Smoker
Alcohol: Former
Drug: None
Personal:
Living: With Family
Employment: Retired
Family History
Family History: Not pertinent
Allergies / Home Medications
Allergies reflects when Allergies were last updated in [facility].
Home Medications with original date entered in [facility]
Allergy/Medication List:
Allergies
Allergy/AdvReac Type Severity Reaction Status Date / Time
erythromycin base Allergy contraindicated Verified 12/21/24 10:46
(Erythromycin Base) (see
comment)
Home Medications
ascorbic acid (vitamin C) 500 mg tablet (Vitamin C) 500 mg PO DAILY Supplement 09/25/18
aspirin 81 mg tablet,delayed release 81 mg PO HS Blood clot prevention/tx ##0 08/07/20
folic acid 400 mcg tablet 0.4 mg PO HS Supplement ##0 08/07/20
furosemide 80 mg tablet 80 mg PO BID@0800,1600 30 days #60 tabs 11/24/24
insulin lispro 100 unit/mL subcutaneous pen (Humalog KwikPen (U-100) Insulin) 5 unit (0.05 mL) SC AC with meals 30 days #90 ea 11/24/24
rifaximin 550 mg tablet (Xifaxan) 550 mg PO BID 30 days #60 tabs 11/24/24
guaifenesin 600 mg tablet, extended release 12 hr (Mucinex) 600 mg PO BID Congestion 12/02/24
tiotropium bromide 2.5 mcg/actuation mist for inhalation (Spiriva Respimat) 2 puff inhalation R DAILY Lung/Breathing Issues 12/02/24
albuterol sulfate 90 mcg/actuation aerosol inhaler 2 puff inhalation R QIDPRN PRN sob 12/26/24
ferrous sulfate 325 mg (65 mg iron) tablet 325 mg PO Q48H Supplement 12/26/24
fluticasone propionate 230 mcg-salmeterol 21 mcg/actuation HFA inhaler (Advair HFA) 2 puff inhalation R BID 12/26/24
lactulose 10 gram/15 mL oral solution 10 g PO BID 12/26/24
metolazone 2.5 mg tablet 2.5 mg PO DAILY 12/26/24
midodrine 5 mg tablet 5 mg PO BID 12/26/24
therapeutic multivitamin 1 tab PO QPM Supplement 12/26/24
Review of Systems
-
A 12 point ROS was completed and negative except as noted: Yes
Physical Exam
Vital Signs
Vital Signs
Temp Pulse Resp BP Pulse Ox
97.7 F 75 18 114/56 95
12/26/24 12:43 12/26/24 14:30 12/26/24 14:30 12/26/24 14:00 12/26/24 14:30
Physical Exam
General: Other (Not in acute distress, appears pale)
HEENT: NormoCephalic and Atraumatic
Respiratory: Decreased Breath Sounds (Left basal)
Cardiac: S1/S2 and Regular Rhythm; No Murmur
GI: Soft, Non Tender and Distended (Dull to percussion, everted umbilicus)
Musculoskeletal: Other (2+ bilateral pitting edema lower extremity)
Skin: Warm and Dry
Neuro: Awake, Alert, Oriented and AO x 3
Laboratory Results
-
12/26/24 10:57
12/26/24 10:57
Laboratory Results
PT 16.9 Sec (11.4-14.6) H 12/26/24 10:57
INR 1.34 12/26/24 10:57
Total Bilirubin 3.0 mg/dl (0.2-1.3) H 12/26/24 10:57
AST 109 U/L (17-59) H 12/26/24 10:57
ALT 102 U/L (0-50) H 12/26/24 10:57
Alkaline Phosphatase 178 U/L (38-126) H 12/26/24 10:57
Impression/Plan
-
IMPRESSION:
74-year-old male with multiple recent admissions for rectal bleeding, cirrhosis with hepatic encephalopathy, multiple thoracocentesis/paracentesis presenting with bleeding per rectum, lightheadedness.
PLAN:
#Acute GI bleeding
#Acute on chronic blood loss anemia
Hemoglobin at 8.4
Bleeding likely from radiation proctitis
Soft blood pressure on arrival
S/p 1 PRBC
Monitor H&H
Consulted GI
Plan on flexible sigmoidoscopy in a.m. for cauterization
#MARIA DOLORES on CKD stage IIIb
#Dyselectrolytemia
#Hyponatremia
#Hypokalemia
Creatinine 3.1, baseline at 2.4
MARIA DOLORES likely prerenal
Will hold off on diuresis
Replete electrolytes
Monitor BMP
Nephrology consulted
#Acute on chronic heart failure with reduced ejection fraction
S/p thoracocentesis
Patient reports losing 11 lbs in the past week
proBNP trended up to 3170
Patient appears hypovolemic
Will hold off on diuresis
Will resume metolazone 2.5, Lasix 80 tomorrow pending labs, after reassessing volume status.
#Ascites
#Thrombocytopenia
#Decompensated cirrhosis
#Elevated transaminases
History of hepatic encephalopathy
S/p paracentesis
Diuresis on hold for MARIA DOLORES
GI on board
Continue lactulose, rifaximin
Monitor platelets
Monitor LFTs
#COPD
Continue home inhalers
#NIDDM
Previously on metformin, but DC'd
Currently on insulin sliding scale
Continue
DVT prophylaxis�SCDs
Diet�clear liquids
Full code
--- NOTE | 2024-12-26 15:31 | CON.GI ---
Consultation
-
Date/Time Consultation Requested: 12/26/24 2:44pm
Date/Time Consultation Performed: 12/26/24 3:31pm
Requesting Provider: Jennifer Batres
Performing Provider: Riki Vargas
Reason for Consultation: Rectal bleeding
Medical History
Chief Complaint / HPI
Chief Complaint: GI bleed cirrhosis
History of Present Illness:
74-year-old male with past medical history significant for CAD status post CABG and stenting, peripheral arterial disease status post stenting, on aspirin therapy, CHF with depressed EF 35% and history of VT status post ICD on amiodarone, type 2
diabetes, chronic pulmonary hypertension, recent hospitalization 11/12- for lethargy and BRBPR, pneumonia with left-sided pleural effusion and readmission 12/02-12/06 for change in MS and small rectal bleeding. Now returns with recurrent rectal
bleeding. He passed brown stool with significant bright red blood.
During the November hospitalization he was treated for volume overload due to cirrhosis and CHF. He underwent multiple thoracenteses and paracenteses during that stay. He was treated for Pseudomonas pneumonia with abx that he completed prior to
discharge. Medications were limited by hypotension / renal impairment. Patient was noted to have BRBPR during that visit. 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 His Plavix was
discontinued.
During December admission, he was treated with lactulose since xifaxan was unable to be obtained as outpt. Hgb was stable without significant bleeding
He is followed as an outpatient by Dr. Butt with [facility]. His states that he has had elevated liver function test for 'years' and that they thought it could be secondary to his amiodarone. He had a history of social drinking in the past
however quit this when he has been on amiodarone for the past couple years. Dr. Butt wanted to perform an EGD to look for varices. He had a virtual colonoscopy performed approximately 1 year ago, he states it was done virtually because of DAPT.
Results were negative according to family. Last endoscopic colonoscopy was approximately 8 years ago.
Past Medical History
Past Medical History: Arrhythmias (V tach s/p ICD), CAD (s/p AK s/p CABG x3), CHF (HFrEF ), HTN, NIDDM and Other (Cirrhosis with Ascites, Thrombocytopenia and Chronic Encephalopathy, Prostate CA s/p XRT)
Past Surgical History: Cardiac (CABG x3) and Other (left femoral endarterectomy with kissing bilateral iliac artery stents () )
Social History
Tobacco: Former Smoker
Alcohol: Former
Drug: None
Personal:
Living: With Family
Family History
Family History: Reviewed & Not Pertinent
Allergies / Home Medications
Allergy/AdvReac Type Severity Reaction Status Date / Time
erythromycin base Allergy contraindicated Verified 12/21/24 10:46
(Erythromycin Base) (see
comment)
�Medication �Instructions �Recorded
ascorbic acid (vitamin C) 500 mg 500 mg PO DAILY Supplement 09/25/18
tablet (Vitamin C)
aspirin 81 mg tablet,delayed 81 mg PO HS Blood clot 08/07/20
release prevention/tx ##0
folic acid 400 mcg tablet 0.4 mg PO HS Supplement ##0 08/07/20
furosemide 80 mg tablet 80 mg PO BID@0800,1600 30 days #60 11/24/24
tabs
insulin lispro 100 unit/mL 5 unit (0.05 mL) SC AC with meals 11/24/24
subcutaneous pen (Humalog KwikPen 30 days #90 ea
(U-100) Insulin)
rifaximin 550 mg tablet (Xifaxan) 550 mg PO BID 30 days #60 tabs 11/24/24
guaifenesin 600 mg tablet, 600 mg PO BID Congestion 12/02/24
extended release 12 hr (Mucinex)
tiotropium bromide 2.5 2 puff inhalation R DAILY 12/02/24
mcg/actuation mist for inhalation Lung/Breathing Issues
(Spiriva Respimat)
albuterol sulfate 90 mcg/actuation 2 puff inhalation R QIDPRN PRN sob 12/26/24
aerosol inhaler
ferrous sulfate 325 mg (65 mg 325 mg PO Q48H Supplement 12/26/24
iron) tablet
fluticasone propionate 230 2 puff inhalation R BID 12/26/24
mcg-salmeterol 21 mcg/actuation
HFA inhaler (Advair HFA)
lactulose 10 gram/15 mL oral 10 g PO BID 12/26/24
solution
metolazone 2.5 mg tablet 2.5 mg PO DAILY 12/26/24
midodrine 5 mg tablet 5 mg PO BID 12/26/24
therapeutic multivitamin 1 tab PO QPM Supplement 12/26/24
Review of Systems
-
All other systems: A 12 pt ROS was Negative except as stated above in HPI
Vital Signs
Temp Pulse Resp BP Pulse Ox
97.7 F 75 18 113/56 94
12/26/24 15:25 12/26/24 15:25 12/26/24 15:25 12/26/24 15:25 12/26/24 15:25
Physical Exam
Exam
General: No Apparent Distress
HEENT: Normocephalic and Atraumatic
Respiratory: Non Labored Respirations
GI: Soft, Non Tender and Non Distended
Rectal: Red (gross blood noted on rectal exam in ER)
Results
WBC 9.8 10^3/uL (4.8-10.8) 12/26/24 10:57
Hgb 8.4 g/dL (13.0-18.0) L 12/26/24 10:57
Hct 24.9 % (39.0-52.0) L 12/26/24 10:57
MCV 100.8 fL (80.0-94.0) H 12/26/24 10:57
Plt Count 64 10^3/uL (130-400) L 12/26/24 10:57
Absolute Neuts (auto) 8.6 10^3/uL (1.4-6.5) H 12/26/24 10:57
PT 16.9 Sec (11.4-14.6) H 12/26/24 10:57
INR 1.34 12/26/24 10:57
Sodium 125 mmol/L (135-145) L 12/26/24 10:57
Potassium 2.7 mmol/L (3.5-5.1) L* 12/26/24 10:57
Chloride 88 mmol/L (98-107) L 12/26/24 10:57
Carbon Dioxide 32 mmol/L (22-30) H 12/26/24 10:57
BUN 86 mg/dl (9-20) H 12/26/24 10:57
Creatinine 3.1 mg/dL (0.7-1.3) H 12/26/24 10:57
Calcium 7.9 mg/dl (8.4-10.2) L 12/26/24 10:57
Total Bilirubin 3.0 mg/dl (0.2-1.3) H 12/26/24 10:57
AST 109 U/L (17-59) H 12/26/24 10:57
ALT 102 U/L (0-50) H 12/26/24 10:57
Alkaline Phosphatase 178 U/L (38-126) H 12/26/24 10:57
Diagnostic Image Results:
Prior GI Procedures:
EGD:
Colonoscopy:
Assessment / Plan
-
Summary: 74yo male with multiple recent admissions to for rectal bleeding, HE/change in MS, PNA, cirrhosis, CHF, had multiple thoracentesis, paracentesis, now returns with BRB with brown stool similar to bleeding during prior admission. Treated
with flex sig/APC of radiation proctitis. Hgb 8.4 stable compared to 8.5 on 12/22. He has seen Dr Butt for his liver disease and GI care. Colonoscopy was deferred in the past due to his DAPT and comorbidities and virtual colon was done instead
about a year ago. Plavix has been stopped and currently on ASA 81mg
Impression:
Rectal bleeding
Radiation proctitis, hx prostate ca/XRT
Cirrhosis
CHF
Ascites
HE
Recommendations:
Likely rebleeding from radiation proctitis
Will repeat flex sig in AM for cautery as necessary. Try to do without anesthesia as last time given his increased risk and comorbidities
Getting 1 unit PRBC
trend Hgb
I do not believe this is UGIB with brown stool mixed with BRB and stable Hgb. No need for EGD at this time
-
-
Thank you for consultation and allowing me to participate in the patient's care. Please call the field education coordinator GI physician during the after hours with any questions or concerns.
--- NOTE | 2024-12-26 16:46 | CON.CAR ---
Consultation
Consultation Request
Date/Time Consultation Requested: December 26, 2024 2:30 PM
Date/Time Consultation Performed: December 26, 2024 4:45 PM
Requesting Provider: Hospitalist
Performing Provider: Danyel Mathur
Reason for Consultation: Blood in stool elevated BNP
Medical History
-
Chief Complaint: Blood in stool
History of Present Illness:
Mr. Rodriguez is a 74 yo male (known to his ethnoarchaeologist Dr. Damon at [facility]) with VT now off of amiodarone, MDT ICD, CAD s/p CABG, HFrEF, HTN, HLD, PAD, DM, cirrhosis of liver and prostate cancer with recurrent radiation GI bleeding, who presented to
the ER with weakness and recurrent BRBPR.
He has been admitted at least 2 times and has many months, with anemia/BRBPR from radiation proctitis and HFrEF. He c/o weakness and had 1 episode of BRBPR yesterday at home before arrival. He tells me his legs are very heavy. He was recently
seen by his rodeo performer where he was started on metolazone and that led to significant diuresis, with the loss of about 11 pounds. His main issue today is weakness of the legs as well as the blood in the stool. He is being admitted to the
hospitalist service with recurrent left pleural effusion and BRBPR.
Past Medical History
Past Medical History: Other (as above)
Past Surgical History: Other (as above)
Social History
Tobacco: Non-Smoker
Personal:
Living: With Family
Family History
Family History: Reviewed & Not Pertinent
Allergies / Home Medications
Allergy/AdvReac Type Severity Reaction Status Date / Time
erythromycin base Allergy contraindicated Verified 12/21/24 10:46
(Erythromycin Base) (see
comment)
�Medication �Instructions �Recorded �Confirmed �Type
ascorbic acid (vitamin C) 500 mg 500 mg PO DAILY Supplement 09/25/18 12/26/24 History
tablet (Vitamin C)
aspirin 81 mg tablet,delayed 81 mg PO HS Blood clot 08/07/20 12/26/24 Rx
release prevention/tx ##0
folic acid 400 mcg tablet 0.4 mg PO HS Supplement ##0 08/07/20 12/26/24 Rx
furosemide 80 mg tablet 80 mg PO BID@0800,1600 30 days #60 11/24/24 12/26/24 Rx
tabs
insulin lispro 100 unit/mL 5 unit (0.05 mL) SC AC with meals 11/24/24 12/26/24 Rx
subcutaneous pen (Humalog KwikPen 30 days #90 ea
(U-100) Insulin)
rifaximin 550 mg tablet (Xifaxan) 550 mg PO BID 30 days #60 tabs 11/24/24 12/26/24 Rx
guaifenesin 600 mg tablet, 600 mg PO BID Congestion 12/02/24 12/26/24 History
extended release 12 hr (Mucinex)
tiotropium bromide 2.5 2 puff inhalation R DAILY 12/02/24 12/26/24 History
mcg/actuation mist for inhalation Lung/Breathing Issues
(Spiriva Respimat)
albuterol sulfate 90 mcg/actuation 2 puff inhalation R QIDPRN PRN sob 12/26/24 12/26/24 History
aerosol inhaler
ferrous sulfate 325 mg (65 mg 325 mg PO Q48H Supplement 12/26/24 12/26/24 History
iron) tablet
fluticasone propionate 230 2 puff inhalation R BID 12/26/24 12/26/24 History
mcg-salmeterol 21 mcg/actuation
HFA inhaler (Advair HFA)
lactulose 10 gram/15 mL oral 10 g PO BID 12/26/24 12/26/24 History
solution
metolazone 2.5 mg tablet 2.5 mg PO DAILY 12/26/24 12/26/24 History
midodrine 5 mg tablet 5 mg PO BID 12/26/24 12/26/24 History
therapeutic multivitamin 1 tab PO QPM Supplement 12/26/24 12/26/24 History
Review of Systems
-
All other systems: Negative unless noted
Physical Exam
Vital Signs
Temp Pulse Resp BP Pulse Ox
97.7 F 75 18 113/56 94
12/26/24 15:25 12/26/24 15:25 12/26/24 15:25 12/26/24 15:25 12/26/24 15:25
Lab Results
12/26/24 10:57
Pes-S-Eogscrkswgm Pept 3170 pg/ml 12/26/24 11:15
Physical Exam
General: Well Developed, Well Nourished and No Apparent Distress
HEENT: Normocephalic
Respiratory: Non Labored Respirations and Other (Decreased breath sounds at the left base)
Cardiac: Other (Paced rhythm)
GI: Soft
Musculoskeletal: Edema (2+ bilateral lower extremities)
Skin: Warm and Dry
Neuro: AO x 3
Psych: Calm
Impression / Plan
-
A/P: 74 yo male (known to his ethnoarchaeologist Dr. Damon at [facility]) with VT now off of amiodarone, MDT ICD, CAD s/p CABG, HFrEF, HTN, HLD, PAD, DM, cirrhosis of liver and prostate cancer, who presented to the ER with weakness and recurrent BRBPR.
Overall, he has lower extremity edema and appears to have excess fluid. However, his low albumin makes for third spacing and complicates diuresis. He recently has diuresed 11 pounds according to his family with the addition of metolazone. His
weight in the chart does appear to be the lowest has been in some time.
HFrEF/ICM - EF 35%. acute on chronic
- recurrent left pleural effusion monitor may require thora
- d/c weight Dec 06 2024 was 215 lbs today weight 210 lbs at home abut 204-206 lbs
- monitor Cr; likely resume lasix and metolazone tomorrow; nephro consult
- GDMT limited by CKD/MARIA DOLORES and baseline hypotension.
VT - prior ICD shocks in 2020.
- he is now off of amio
- MDT ICD in place, no recent discharges.
- can consider coreg 3.125 mg bid for both cirrhosis, VT, and HF
CAD - s/p CABG.
- stable w/o angina.
- hold aspirin in setting of bleeding
Anemia - acute on chronic.
- recurrent BRBPR.
- radiation proctitis scope tomorrow Dec 26
Cirrhosis w/ Hx of hepatic encephalopathy
- per GI
Hyponatremia Hypokalemia
- per primary
Data Reviewed
-
EKG: Tracing Personally Visualized and interpreted (paced)
Medical Tests (Nuc Med, Echo etc): Report Reviewed by me
Labs: Labs Reviewed by me
[2024-12-26 18:47] LABS: Glucose - Point of Care 137 mg/dl (70-99)
[2024-12-26] MEDS: THERAGRAN 1 TABLET PO (19:03)
[2024-12-26] MEDS: FEOSOL 325 MG PO (19:03)
[2024-12-26] MEDS: NOVOLOG FLEXPEN 5 UNITS SC (19:03)
[2024-12-26] MEDS: XIFAXAN 550 MG PO (19:03)
[2024-12-26] MEDS: MUCINEX 600 MG PO (19:03)
[2024-12-26] MEDS: DUPHALAC/CHRONULAC 10 GRAMS PO (19:04)
--- NOTE | 2024-12-26 19:22 | PTCARENOTE ---
Patient arrived to IMU from ED. Patient slid from stretcher to bed. AOx3. Flat affect. V-paced with PVC's on monitor. On RA with SpO2 greater than 922%. BP 101/[address] Childress aware. No new orders at this time. Per patient, he fell recently
and has wound to R knee. Redressed R knee wound. Call ralph within reach, bed in lowest position, and bed of wheels locked. Family at bedside.
[2024-12-26] MEDS: ADVAIR HFA 230/21 MCG INHALER 2 PUFF INH (19:23)
[2024-12-26 21:00] LABS: Blood Urea Nitrogen 85 mg/dl (9-20); Calcium 8.0 mg/dl (8.4-10.2); Carbon Dioxide 30 mmol/L (22-30); Chloride 88 mmol/L (98-107); Glucose 128 mg/dl (70-99); Potassium 2.7 mmol/L (3.5-5.1); Sodium 124 mmol/L (135-145); eGFR 22.67
[2024-12-26] MEDS: ASPIR LOW (ENTERIC COATED) 81 MG PO (21:06)
[2024-12-26] MEDS: FOLVITE 0.5 MG PO (21:06)
--- NOTE | 2024-12-26 21:07 | PTCARENOTE ---
Confirmed with Dr. Vargas that it is OK to give ASA 81 mg.
[2024-12-26 21:20] LABS: Glucose - Point of Care 171 mg/dl (70-99)
--- NOTE | 2024-12-26 21:22 | PTCARENOTE ---
Flash Marley NP made aware of critical potassium of 2.7. Orders to replete potassium placed.
[2024-12-26] MEDS: KCL 20 MEQ PO (21:34)
[2024-12-26] MEDS: KCL 270 MEQ IV (21:34)
[2024-12-27] VITALS (18 sets, daily range): BP systolic 77–117; BP diastolic 33–74; PULSE 78; O2SAT 92
--- NOTE | 2024-12-27 03:42 | PTCARENOTE ---
assumed care of patient at 2300. pt is AAOx3, flat affect. able to make needs known. VSS. soft BP but stable. 94% RA, some wheezes noted. pt requires assistance with use of the urinal. R knee abrasion dressing intact. stage 2 on sacrum but foam
intact. potassium rider infusing without issues. care ongoing.
[2024-12-27 04:10] LABS: Hematocrit 26.3 % (39.0-52.0); Hemoglobin 8.6 g/dL (13.0-18.0); Mean Corp Hgb Conc. 32.7 g/dL (33.0-37.0); Mean Corpuscular Volume 101.5 fL (80.0-94.0); Nucleated Red Blood Cells % 0 % (-); Platelet Count 58 10^3/uL (130-400); Red Cell Dist. Width 19.5 % (11.5-14.5)
[2024-12-27 04:22] LABS: ALT (SGPT) 112 U/L (0-50); AST (SGOT) 137 U/L (17-59); Albumin 2.4 g/dl (3.5-5.0); Alkaline Phosphatase 126 U/L (38-126); Blood Urea Nitrogen 85 mg/dl (9-20); Calcium 7.9 mg/dl (8.4-10.2); Carbon Dioxide 29 mmol/L (22-30); Chloride 91 mmol/L (98-107); Glucose 102 mg/dl (70-99); Magnesium 2.6 mg/dl (1.6-2.3); Potassium 3.1 mmol/L (3.5-5.1); Sodium 126 mmol/L (135-145); Total Protein 5.6 g/dl (6.3-8.2); eGFR 25.98
[2024-12-27] MEDS: NOVOLOG FLEXPEN SC (07:47)
[2024-12-27 07:58] LABS: Glucose - Point of Care 111 mg/dl (70-99)
--- NOTE | 2024-12-27 08:02 | W.PN.HOSP.TC ---
Today's Communication/Plan
-
Low-fat diet with Ensure
CBC in the a.m.
PT OT
Nephro consult
Assessment / Plan
Assessment / Plan
74-year-old male with multiple recent admissions for rectal bleeding, cirrhosis with hepatic encephalopathy, multiple thoracocentesis/paracentesis presenting with bleeding per rectum, lightheadedness.
#Acute on chronic blood loss anemia
- Hemoglobin at 8.6 after 1 unit of PRBC
- Bleeding likely from radiation proctitis
- GI following
- flexible sigmoidoscopy today with multiple bleeding colonic angioectasias. Treated with APC
#History of ascites with portal hypertension secondary to cirrhosis
# Thrombocytopenia
# Transaminitis
-Recent paracentesis
- Continue to monitor
#History of left sided pleural effusion status post recent Thora
Monitor
#Hyponatremia
- 126
- awaiting nephro consult
#MARIA DOLORES on CKD
-Recently started on metolazone along with Lasix; hold for now
-Monitor volume status
- Creatinine slowly improving
#Chronic CHF with reduced EF/ischemic cardiomyopathy with EF 35%
-Cardiology following; proBNP 317
-Will need to evaluate if need another thoracentesis if do not improve
#History of VT
-ICD in place, monitor
#CAD status post CABG
#History hepatic encephalopathy
-Continue rifaximin, lactulose
#COPD
-Continue home inhalers
#NIDDM
-Previously on metformin, but DC'd
-Currently on insulin sliding scale
DVT prophylaxis�SCDs
Diet�low fat per GI
Full code
Anticipated Discharge: 24 - 48 hours
Subjective/Interval History
-
Date of Service: December 27, 2024
soft bp readings. afebrile. offers no new complaints
Objective Data
-
Labs:
Laboratory Results
12/26/24 12/27/24
20:26 03:24
WBC 9.6
Hgb 8.6 L
Hct 26.3 L
Plt Count 58 L
Sodium 124 L 126 L
Potassium 2.7 L* 3.1 L
Chloride 88 L 91 L
Carbon Dioxide 30 29
BUN 85 H 85 H
Creatinine 2.8 H 2.5 H
Glucose 128 H 102 H
Calcium 8.0 L 7.9 L
Total Bilirubin 3.9 H
AST 137 H
ALT 112 H
Alkaline Phosphatase 126
Vital Signs:
Vital Signs
Temp Pulse Resp BP Pulse Ox
97.6 F 66 12 93/45 93
12/27/24 07:46 12/27/24 06:00 12/27/24 06:00 12/27/24 07:48 12/27/24 06:00
I&O
12/26/24 12/27/24 12/28/24
06:59 06:59 06:59
Intake Total 1000 / 1000
Output Total 1050 / 1050
Balance -50 / -50
Review of Systems
-
History Source: Patient
All other systems: Reviewed and negative
Physical Exam
-
General: Well Developed, Well Nourished, No Apparent Distress, Comfortable and Appears Chronically Ill
HEENT: Normocephalic, Atraumatic and Moist Mucous Membranes
Respiratory: Clear to Auscultation and Non Labored Respirations
Cardiac: Regular Rhythm and S1/S2
GI: Soft, Nontender and Distended
Musculoskeletal: No Cyanosis and Other (pitting edema)
Skin: Warm and Dry
Neuro: AO x 3, No Motor Deficits, Nonfocal/Grossly Intact and Other (no asterixis)
Psych: Calm
Data Reviewed
-
Labs: Labs Reviewed by me, Discussed with Physician and Discussed with Patient
[2024-12-27] MEDS: KCL 40 MEQ PO (08:03)
--- NOTE | 2024-12-27 08:08 | PTCARENOTE ---
Assumed care of patient at beginning of this shift from previous RN. Received call from Jackelyn, nurse in GI lab, that patient for EGD around 09:30; requested to hold morning meds. Reviewed all with Dr Boyer, ok to hold all meds with exception of
midodrine d/t BP 93/40. Patient states he always runs low. Also notified Dr Boyer that K+ 3.1; he ordered it to be repleted. [employer] Team Member then in room to see patient; stated she ordered po potassium which was given. Patient instructed he is to
maintain NPO til procedure.
[2024-12-27] MEDS: ADVAIR HFA 230/21 MCG INHALER 2 PUFF INH ×2 (08:09→19:57)
[2024-12-27] MEDS: SPIRIVA RESPIMAT 2.5 MCG 2 PUFF INH (08:10)
--- NOTE | 2024-12-27 08:10 | W.PN.CD ---
Today's Communication / Plan
-
Flex sig today
Anasarca: apply compression; increase protein intake
Hold off on diuresis; Cr improving without it and we are limited by hypoalbuminemia and hypoK
Impression / Plan
-
A/P: 74 yo male (known to his scallop dredger Dr. Damon at [facility]) with VT now off of amiodarone, MDT ICD, CAD s/p CABG, HFrEF, HTN, HLD, PAD, DM, cirrhosis of liver and prostate cancer, who presented to the ER with weakness and recurrent BRBPR.
Cardiology consulted for concern for acute on chronic HFrEF.
Medical Pathology Teacher: Nelson ([facility])
Anemia - acute on chronic.
- recurrent BRBPR.
- radiation proctitis scope today
Anasarca
- Protein/albumin are low.
- Increase protein intake
- Leg compression
HFrEF/ICM - EF 35%. acute on chronic
- recurrent left pleural effusion monitor may require thora
- weight is lowest on record here. suspect he has protein-calorie malnutrition from HFrEF and cirrhosis
- hold diuresis; Cr improving without it; limited by low albumin and hypoK
- GDMT limited by CKD/MARIA DOLORES and baseline hypotension. On Midodrine
Hypokalemia
- Replete K
VT - prior ICD shocks in 2020.
- he is now off of amio
- MDT ICD in place, no recent discharges.
CAD - s/p CABG.
- stable w/o angina.
- continue ASA give stable hgb
Cirrhosis w/ Hx of hepatic encephalopathy
- per GI
Hyponatremia Hypokalemia
- per primary
Subjective: Hgb stable. Plan for flex sig this AM.
Physical Exam
Vital Signs/Labs
Vital Signs
Temp Pulse Resp BP Pulse Ox
97.6 F 66 12 93/45 93
12/27/24 07:46 12/27/24 06:00 12/27/24 06:00 12/27/24 07:48 12/27/24 06:00
12/26/24 12/27/24 12/28/24
06:59 06:59 06:59
Actual Weight 208 lb 1 oz
12/27/24 03:24
12/27/24 03:24
PT 16.9 Sec (11.4-14.6) H 12/26/24 10:57
INR 1.34 12/26/24 10:57
Magnesium 2.6 mg/dl (1.6-2.3) H 12/27/24 03:24
12/26/24
11:15
Hph-G-Jwgcgybgwpg Pept 3170
Physical Exam
Constitutional: No acute distress and Comfortable
Cardiovascular: Rhythm & rate is regular, Pedal edema present, S1S2 is normal and Murmur/rub/gallop absent
Respiratory: Respiratory effort normal and Lungs clear to auscul.
Neuro/Psych: AO x 3
Data Reviewed
-
Date of Service: December 27, 2024
Medical Decision Making: Reviewed Test Results, Test Interpretation and Review of Case with other Provider
EKG: Tracing Personally Visualized and interpreted
Echo: Report Reviewed by me
Labs: Labs Reviewed by me
[2024-12-27] MEDS: KCL 270 MEQ IV (08:11)
--- NOTE | 2024-12-27 08:38 | VNURNOTE ---
Addendum entered by Jeane Horowitz RN 12/27/24 15:30:
[facility] Resumption referral placed in [facility].
Original Note:
Chart reviewed. Patient is current with [facility]. Will continue to follow hospital course and DC plans.
--- NOTE | 2024-12-27 08:48 | PTCARENOTE ---
Received call from Jackelyn to give tap water enema as ordered in prep for flex sig. K+ rider infusing.
--- NOTE | 2024-12-27 08:50 | PTCARENOTE ---
Assumed care of patient at beginning of this shift from previous RN. Received call from Jackelyn, nurse in GI lab, that patient for EGD around 09:30; requested to hold morning meds. Reviewed all with Dr Boyer, ok to hold all meds with exception of
midodrine d/t BP 93/40. Patient states he always runs low. Also notified Dr Boyer that K+ 3.1; he ordered it to be repleted. Washer Engineer Helper then in room to see patient; stated she ordered po potassium which was given. Patient instructed he is to
maintain NPO til procedure.
--- NOTE | 2024-12-27 10:27 | W.PN.UPDATE ---
Update Note
Progress Note Update
Flex sig done
Multiple bleeding rectal ectasias
Cauterized w APC
REC:
Resume diet
Monitor for rebleeding
[2024-12-27] MEDS: MUCINEX 600 MG PO ×2 (11:20→21:10)
[2024-12-27] MEDS: XIFAXAN 550 MG PO ×2 (11:20→21:10)
[2024-12-27] MEDS: VITAMIN C 500 MG PO (11:20)
[2024-12-27] MEDS: DUPHALAC/CHRONULAC 10 GRAMS PO ×2 (11:20→21:10)
--- NOTE | 2024-12-27 11:24 | PTCARENOTE ---
Patient returned from GI awake, alert and Ox3; potassium infusing. Low fat diet ordered by GI physician. in room and stated patient is normally on diabetic, low salt diet; TT sent to Dr oByer who updated low fat diet order. Administered the
rest of patient's morning meds.
[2024-12-27 11:30] LABS: Glucose - Point of Care 117 mg/dl (70-99)
[2024-12-27] MEDS: NOVOLOG FLEXPEN 5 UNITS SC ×2 (13:11→18:10)
--- NOTE | 2024-12-27 13:22 | PTCARENOTE ---
Instructed to d/c 2nd K+ rider as per Dr Boyer. Patient received 40meq po and finishing 40meq infusion.
--- NOTE | 2024-12-27 15:00 | CM ---
Initial Assessment Completed By SWEETIE Godfrey.
Patient lives at home with his who was present today in a 2 Story House with 2 steps to enter, regular flight of stairs inside, & bathroom on the 1st & 2nd floor.
Patient uses no devices at home, was outpatient for PT in past.
PCP: Dr. Shanel Mendenhall
Pharmacy: [facility]
Patient is on oxygen right now & not at home.
Patient has transportation home when ready. PLAN: Anticipate Home No Needs
--- NOTE | 2024-12-27 15:09 | CM ---
Initial Assessment Completed By SWEETIE Godfrey.
Patient lives at home with his who was present today in a 2 Story House with 2 steps to enter, regular flight of stairs inside, & bathroom on the 1st & 2nd floor.
Patient uses no devices at home, was outpatient for PT in past.
PCP: Dr. Shanel Mendenhall
Pharmacy: [facility]
Patient is on oxygen right now & not at home. Patient went home with [facility] last admission.
Patient has transportation home when ready. PLAN: Anticipate Home No Needs
--- NOTE | 2024-12-27 16:13 | PTCARENOTE ---
Patient OOB to chair with PT and sat for about 2hrs. Assisted back to bed x1. Patient's requested acapella and IS for patient. TT sent to Dr Boyer; both provided by RT. also requesting patient speak to someone about his diabetic
medications; Dr Boyer made aware via TT.
--- NOTE | 2024-12-27 16:25 | W.CON.NEPH ---
Consultation
-
Date/Time Consultation Requested: 12/27/2024 9 AM
Date/Time Consultation Performed: 12/27/2024 10 AM
Requesting Provider: Dr. Batres
Performing Provider: Dr. Pagan
Reason for Consultation: MARIA DOLORES
Medical History
-
Chief Complaint: GIB
History of Present Illness:
This is a 74-year-old gentleman who has known heart failure reduced ejection fraction 35% on high-dose Lasix. He was also on Entresto therapy for several years. He also has cirrhosis controlled with Lasix and spironolactone as well. He has
diabetes mellitus type 2 which is stable on metformin alone. His baseline creatinine is likely close to 2.0. He was recently in [facility] [place] with shortness of breath and acute kidney injury with a creatinine as high as 3.0. He was felt to
be in heart failure and volume overload. He was diuresed with eventual improvement of his creatinine down to 2.1. Multiple medications were discontinued given the hypotension. He was subsequently discharged. I had seen him in the office just
last week. He had undergone paracentesis on Friday for over 2 L but did not receive IV albumin because of a timing issue. When he was seen in the office he was severely hypotensive. He also has significant lower extreme edema still. I had
added metolazone 5 mg daily and started him on midodrine 5 mg twice daily. He says that he lost 8 pounds in the first day and the metolazone was halved. He then lost 5 pounds a second day. He did not weigh himself the day after that because he
then developed bright red blood per rectum causing him to come to the emergency room. This had occurred previously as well. He was taken for colonoscopy with treatment of ectasias. Here his sodium level was 126 with a creatinine up at 3.1 and
hypokalemia.
Past Medical History
hypertension
hyperlipidemia
type II diabetic mellitus
prostate cancer
Ventricular arrhythmia status post ICD
CAD status post WI, status post CABG x3
CHF with depressed EF
left femoral endarterectomy with kissing bilateral iliac artery stents ()
CKD 3b/4
Cirrhosis
Social History
Tobacco: Former Smoker
Alcohol: Former
Family History
Family History: Not Pertinent
Allergies / Home Medications
Allergy/AdvReac Type Severity Reaction Status Date / Time
erythromycin base Allergy contraindicated Verified 12/21/24 10:46
(Erythromycin Base) (see
comment)
�Medication �Instructions �Recorded �Confirmed �Type
ascorbic acid (vitamin C) 500 mg 500 mg PO DAILY Supplement 09/25/18 12/26/24 History
tablet (Vitamin C)
aspirin 81 mg tablet,delayed 81 mg PO HS Blood clot 08/07/20 12/26/24 Rx
release prevention/tx ##0
folic acid 400 mcg tablet 0.4 mg PO HS Supplement ##0 08/07/20 12/26/24 Rx
furosemide 80 mg tablet 80 mg PO BID@0800,1600 30 days #60 11/24/24 12/26/24 Rx
tabs
insulin lispro 100 unit/mL 5 unit (0.05 mL) SC AC with meals 11/24/24 12/26/24 Rx
subcutaneous pen (Humalog KwikPen 30 days #90 ea
(U-100) Insulin)
rifaximin 550 mg tablet (Xifaxan) 550 mg PO BID 30 days #60 tabs 11/24/24 12/26/24 Rx
guaifenesin 600 mg tablet, 600 mg PO BID Congestion 12/02/24 12/26/24 History
extended release 12 hr (Mucinex)
tiotropium bromide 2.5 2 puff inhalation R DAILY 12/02/24 12/26/24 History
mcg/actuation mist for inhalation Lung/Breathing Issues
(Spiriva Respimat)
albuterol sulfate 90 mcg/actuation 2 puff inhalation R QIDPRN PRN sob 12/26/24 12/26/24 History
aerosol inhaler
ferrous sulfate 325 mg (65 mg 325 mg PO Q48H Supplement 12/26/24 12/26/24 History
iron) tablet
fluticasone propionate 230 2 puff inhalation R BID 12/26/24 12/26/24 History
mcg-salmeterol 21 mcg/actuation Lung/Breathing Issues
HFA inhaler (Advair HFA)
lactulose 10 gram/15 mL oral 10 g PO BID Liver Issues 12/26/24 12/26/24 History
solution
metolazone 2.5 mg tablet 2.5 mg PO DAILY Fluid 12/26/24 12/26/24 History
Retention/Swelling
midodrine 5 mg tablet 5 mg PO BID Hypotension 12/26/24 12/26/24 History
therapeutic multivitamin 1 tab PO QPM Supplement 12/26/24 12/26/24 History
Review of Systems
-
No chest pain or shortness of breath. No lightheadedness. Lower extremity edema slightly better.
All other systems: Negative unless noted
Physical Exam
Vital Signs
Vital Signs
Temp Pulse Resp BP Pulse Ox
97.7 F 77 18 117/52 94
12/27/24 15:06 12/27/24 16:01 12/27/24 16:01 12/27/24 16:01 12/27/24 16:01
Lab Results
WBC 9.6 10^3/uL (4.8-10.8) 12/27/24 03:24
RBC 2.59 10^6/uL (4.70-6.10) L 12/27/24 03:24
Hgb 8.6 g/dL (13.0-18.0) L 12/27/24 03:24
Hct 26.3 % (39.0-52.0) L 12/27/24 03:24
Plt Count 58 10^3/uL (130-400) L 12/27/24 03:24
Sodium 126 mmol/L (135-145) L 12/27/24 03:24
Potassium 3.1 mmol/L (3.5-5.1) L 12/27/24 03:24
Chloride 91 mmol/L (98-107) L 12/27/24 03:24
Carbon Dioxide 29 mmol/L (22-30) 12/27/24 03:24
BUN 85 mg/dl (9-20) H 12/27/24 03:24
Creatinine 2.5 mg/dL (0.7-1.3) H 12/27/24 03:24
eGFR 25.98 12/27/24 03:24
Glucose 102 mg/dl (70-99) H 12/27/24 03:24
Calcium 7.9 mg/dl (8.4-10.2) L 12/27/24 03:24
Yhe-M-Cbitpqhmqek Pept 3170 pg/ml 12/26/24 11:15
Albumin 2.4 g/dl (3.5-5.0) L 12/27/24 03:24
Laboratory Tests
12/06/24
03:44
Potassium 3.7
Creatinine 2.3 H
Physical Exam
Patient is awake alert oriented and in no distress. Mood and affect were pleasant, insight and judgment were good. Pupils are equal round and reactive to light, extraocular movements are intact, sclera were anicteric. Hearing was normal, ears and
nose are intact. Oropharynx was clear. Neck was supple with trachea midline and no thyromegaly. Heart was regular rate and rhythm without rubs. Lower extremities with 2+ edema. Lungs were clear to auscultation bilaterally and with normal
excursion. Abdomen was soft, nontender, with normal active bowel sounds, and no hepatosplenomegaly. Skin was without rash and with normal turgor.
Data Reviewed
-
Radiology: Image Personally Visualized and interpreted (Chest x-ray 12/26/2024 by my reading opacification left lung)
Medical Tests (Nuc Med, Echo etc): Image Personally Visualized and interpreted (EKG 12/26/2024 by my reading vpaced rhythm)
Old Records: Reviewed
Assessment/Plan
-
Assessment
MARIA DOLORES (B/L cr 1.9 )
hyponatremia
Anemia
Hypokalemia
pancytopenia
HFrEF 35% with Moderate TR
GI bleed
cirrhosis
left pleural effusion
mild ascites
Plan
Increase midodrine to 5 mg 3 times daily
Hold Lasix until blood pressures are stable
Replete potassium, overall deficit likely close to 160 mEq
Overall his edema is significantly improved however.
Follow BMP, MARIA DOLORES likely due to combination of GI bleed and rapid diuresis
Discussed with patient and family
[2024-12-27 17:34] LABS: Glucose - Point of Care 156 mg/dl (70-99)
[2024-12-27] MEDS: THERAGRAN 1 TABLET PO (18:11)
[2024-12-27] MEDS: ASPIR LOW (ENTERIC COATED) 81 MG PO (21:10)
[2024-12-27] MEDS: FOLVITE 0.5 MG PO (21:10)
[2024-12-27 21:58] LABS: Glucose - Point of Care 236 mg/dl (70-99)
--- NOTE | 2024-12-27 23:36 | W.PN.UPDATE ---
Update Note
Progress Note Update
Patient is hypotensive with bp 77/33, map 48. Asymptomatic, Patient currently on midodrine TID. Will check hgb level and start levophed for map >65.
[2024-12-28] VITALS (44 sets, daily range): BP systolic 75–121; BP diastolic 42–61; PULSE 81; O2SAT 95
[2024-12-28] MEDS: LEVOPHED 250 IV (00:10)
--- NOTE | 2024-12-28 00:17 | PTCARENOTE ---
pt BP 77/33, MAP 48. [employer] notified. Orders placed for levo. Levo hung @2mcg/min initial rate.
[2024-12-28 00:40] LABS: Hematocrit 26.3 % (39.0-52.0); Hemoglobin 8.6 g/dL (13.0-18.0); Mean Corp Hgb Conc. 32.7 g/dL (33.0-37.0); Mean Corpuscular Volume 100.8 fL (80.0-94.0); Platelet Count 71 10^3/uL (130-400); Red Cell Dist. Width 19.9 % (11.5-14.5)
[2024-12-28 00:51] LABS: Blood Urea Nitrogen 81 mg/dl (9-20); Calcium 8.1 mg/dl (8.4-10.2); Carbon Dioxide 29 mmol/L (22-30); Chloride 91 mmol/L (98-107); Estimated Creatinine Clearance 24 ml/min; Glucose 161 mg/dl (70-99); Potassium 3.7 mmol/L (3.5-5.1); Sodium 128 mmol/L (135-145); eGFR 23.68
[2024-12-28] MEDS: OCEAN, SALINE MIST 1 SPRAYS NASAL ×3 (05:21→17:26)
[2024-12-28 07:10] LABS: Hematocrit 24.8 % (39.0-52.0); Hemoglobin 8.6 g/dL (13.0-18.0); Mean Corp Hgb Conc. 34.7 g/dL (33.0-37.0); Mean Corpuscular Volume 98.0 fL (80.0-94.0); Platelet Count 62 10^3/uL (130-400); Red Cell Dist. Width 19.3 % (11.5-14.5)
[2024-12-28 07:19] LABS: ALT (SGPT) 142 U/L (0-50); AST (SGOT) 178 U/L (17-59); Albumin 2.4 g/dl (3.5-5.0); Alkaline Phosphatase 153 U/L (38-126); Blood Urea Nitrogen 79 mg/dl (9-20); Calcium 7.8 mg/dl (8.4-10.2); Carbon Dioxide 28 mmol/L (22-30); Chloride 92 mmol/L (98-107); Estimated Creatinine Clearance 25 ml/min; Glucose 123 mg/dl (70-99); Potassium 3.3 mmol/L (3.5-5.1); Sodium 128 mmol/L (135-145); Total Protein 5.4 g/dl (6.3-8.2); eGFR 24.78
[2024-12-28 07:53] LABS: Glucose - Point of Care 141 mg/dl (70-99)
[2024-12-28] MEDS: ADVAIR HFA 230/21 MCG INHALER 2 PUFF INH ×2 (08:08→20:28)
[2024-12-28] MEDS: SPIRIVA RESPIMAT 2.5 MCG 2 PUFF INH (08:08)
[2024-12-28] MEDS: VITAMIN C 500 MG PO (08:10)
[2024-12-28] MEDS: DUPHALAC/CHRONULAC 10 GRAMS PO ×2 (08:10→19:23)
[2024-12-28] MEDS: XIFAXAN 550 MG PO ×2 (08:10→19:23)
[2024-12-28] MEDS: MUCINEX 600 MG PO ×2 (08:10→19:23)
[2024-12-28] MEDS: KCL 40 MEQ PO ×2 (08:36→13:00)
[2024-12-28] MEDS: NOVOLOG FLEXPEN 5 UNITS SC ×3 (08:36→17:23)
--- NOTE | 2024-12-28 10:07 | PN.CDI ---
CDI
- -
CDI:
Physician Documentation Request
Admit Date: 12/26/24 15:10
Dear Doctor,
Patient admitted for GI bleed.
12/26 Cardiology PN: 'HFrEF/ICM - EF 35%. acute on chronic - recurrent left pleural effusion monitor may require thora...monitor Cr; likely resume lasix and metolazone tomorrow; nephro consult'
12/27 Hospitalist PN: 'Chronic CHF with reduced EF/ischemic cardiomyopathy with EF 35%'
Please provide further specificity regarding the most likely acuity of CHF you are evaluating, treating or monitoring.
Acute on chronic
Chronic
Other
Use of terms such as suspected, likely, concern for, or probable (associated with a specific diagnosis that is being evaluated, monitored, or treated as if it exists) are acceptable and can be coded in the inpatient setting, when documented at the
time of discharge.
Thank you,
Anitra Linares RN, BSN
CDI Specialist
Available via [employer] text
Please use your independent medical judgment in providing your response.
--- NOTE | 2024-12-28 10:15 | W.PN.GI.CBS2 ---
Today's Communication / Plan
-
-- GI will sign off
Assessment / Plan
-
Summary: 74yo male with multiple recent admissions to for rectal bleeding, HE/change in MS, PNA, cirrhosis, CHF, had multiple thoracentesis, paracentesis, now returns with BRB with brown stool similar to bleeding during prior admission. Treated
with flex sig/APC of radiation proctitis. Hgb 8.4 stable compared to 8.5 on 12/22. He has seen Dr Butt for his liver disease and GI care. Colonoscopy was deferred in the past due to his DAPT and comorbidities and virtual colon was done instead
about a year ago. Plavix has been stopped and currently on ASA 81mg
Impression:
Rectal bleeding
Radiation proctitis, hx prostate ca/XRT
Cirrhosis
CHF
Ascites
HE
Recommendations:
Likely rebleeding from radiation proctitis
Received 1 unit PRBC 12/26/2024
trend Hgb
Underwent flexible sigmoidoscopy on 12/27/[address] Vargas where he treated angioectasias in the rectum unsedated
12/28/2024 -brown stool charted from yesterday, hemoglobin stable
Continue aspirin therapy, intermittent hemoglobin checks
GI will sign off. Please call with questions
Subjective
Subjective
Date of Service: December 28, 2024
Patient denies any rectal bleeding. Had a bowel movement yesterday that was charted as brown. Patient did not look at it.
Objective
Data Reviewed
Laboratory Data:
Laboratory Results
12/28/24 05:13
12/28/24 05:13
Laboratory Results
PT 16.9 Sec (11.4-14.6) H 12/26/24 10:57
INR 1.34 12/26/24 10:57
Magnesium 2.6 mg/dl (1.6-2.3) H 12/27/24 03:24
Total Bilirubin 3.9 mg/dl (0.2-1.3) H 12/28/24 05:13
AST 178 U/L (17-59) H 12/28/24 05:13
ALT 142 U/L (0-50) H 12/28/24 05:13
Alkaline Phosphatase 153 U/L (38-126) H 12/28/24 05:13
Vital Signs and I&O:
Vital Signs
Temp Pulse Resp BP Pulse Ox
97.9 F 79 16 102/54 95
12/28/24 07:16 12/28/24 09:06 12/28/24 09:06 12/28/24 09:06 12/28/24 09:06
I&O
12/27/24 12/28/24 12/29/24
06:59 06:59 06:59
Intake Total 1000 / 1000 480 / 480
Output Total 1050 / 1050 800 / 800 200 / 200
Balance -50 / -50 -800 / -800 280 / 280
Physical Exam
Physical Exam
HEENT: Anicteric (Mildly icteric)
GI: Soft, Non Distended and Non Tender
Neuro: Non Focal
--- NOTE | 2024-12-28 10:29 | W.PN.HOSP.TC ---
Addendum entered and electronically signed by Jonh Boyer DO 12/29/24 11:01:
CDI: Acute on chronic HFrEF with cardiorenal physiology
Original Note:
Today's Communication/Plan
-
Hold diuretics -- Consider right heart cath to assess volume status
Resume high intensity statin
Increase midodrine and wean Levophed
Follow cultures and CBC
Assessment / Plan
Assessment / Plan
#Circulatory shock
- Unclear etiology, possibly hypovolemic/hemorrhagic v. septic/aspiration with
- Overnight was placed on the Levophed for hypotension of unclear origin
- On exam today does sound quite rhonchorous, drooling while seated in chair
- Was initially admitted with blood loss anemia however hemoglobin now stable following APC
- Remains on low-dose Levophed this morning, WBC downtrending without intervention
Plan
- Ordered blood cultures x 2, will hold off on antibiotics unless WBC uptrend or new fever present
- Increase midodrine to 10 mg 3 times daily, continue to monitor vitals
- Continue to hold home Lasix and metolazone
- Measure blood pressure in both arms if low
- Wean Levophed for MAP goal >65
- Consider RHC to assess volume status
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
#Anemia of chronic disease
- Received 1 unit of PRBC here, hemoglobin has persistently been in the range of 8.5
- Bleeding likely from radiation proctitis; s/p flex sig on 12/27 with bleeding ectasias that received APC
- Hemoglobin remained stable, GI has since signed off
#Liver cirrhosis C/B ascites, HE, thrombocytopenia
#Chronic transaminitis
- Question of amiodarone induced liver toxicity, recently was discontinued
- MELD 3.0 score of 30; correlating to 73% to 60 days survival
- Home regimen includes Lasix, lactulose + Xifaxan, midodrine
- Recently had therapeutic paracentesis, no signs of SBP
- Holding home diuretics as above, monitor for recurrence of ascites
#Hypervolemic hyponatremia
- Suspect this is primarily driven by cirrhosis; sodium is low was 125 here, improving with FR diet and holding home diuretic
- Serum sodium morning of 12/28 is up to 128; nephrology evaluated, recommended to continue holding diuretics
- Continue to trend BMP and hold home Lasix/metolazone
- Monitor volume status, I's and O's, weight
- Consider repeat urine studies if worsened
#Pre-renal MARIA DOLORES on CKD stage III
- Creatinine baseline near 2.0; likely with a degree of AL CKD, no chronic acidemia or known BMD
- Suspect prerenal etiology as was recently started on metolazone; creatinine improving with diuretics held
- Creatinine was up to 3.1 on arrival, has improved down to 2.5-2.6 with diuretics held
- Will continue current management and trend BMP, UOP
- Avoid nephrotoxic agents
#Chronic HFrEF
#Ischemic cardiomyopathy
#CAD s/p CABG
- Last TTE with LVEF 35%, mild aortic stenosis, preserved RV function
- GDMT includes no GDMT due to chronic hypotension and renal insufficiency
- Diuretic regimen includes Lasix 80 mg twice daily and metolazone 2.5 mg daily
- Diuretics currently on hold as above due to circulatory shock and MARIA DOLORES
- Has remained on room air; volume status stable off diuretics
- Continue to trend I's and O's, daily weights and resume Lasix when able
- Resume high intensity statin as guideline directed therapy
#History of VT
-Previous regimen included amiodarone which was discontinued due to likely associated liver disease
-No longer on any antiarrhythmic therapy, including beta-hemant or CCB
-Has AICD currently in place
#COPD
- Likely GOLD A-B; Home regimen includes Trelegy equivalent with Advair and Spiriva
- No recent pulmonary function test available to review
- No signs of COPD exacerbation on home regimen
#IDDM-2
- Home regimen previously included metformin; insulin lispro 5 units with meals
- Metformin was discontinued; remains on ISS alone
- Blood glucose goal 140-180
#H/O prostate cancer S/P XRT C/B radiation proctitis
#PAD s/p stent and endarterectomy
- Home regimen includes aspirin, not currently on statin per our records
- Will resume nightly statin at atorvastatin 20 mg for now
- Follow-up as OP and uptitrate as needed, LDL goal <70
DVT prophylaxis: SCDs
Diet: low fat, sodium restricted, diabetic
CODE STATUS: Full code
Disposition: Home care when medically stable
Anticipated Discharge: > 48 hours
Subjective/Interval History
-
Date of Service: December 28, 2024
Seen and examined while seated in the chair. Overnight was started on Levophed for hypotension. Hemodynamically adequate on low-dose Levophed this morning.
Hemoglobin and platelet count stable, WBC downtrending, sodium stable and potassium low at 3.3. Creatinine plateaued near 2.5 range.
He denies any new complaints this morning. Denies any recurrence of bleeding that he is noted
Objective Data
-
Labs:
Laboratory Results
12/28/24 12/28/24
00:08 05:13
WBC 13.9 H 11.5 H
Hgb 8.6 L 8.6 L
Hct 26.3 L 24.8 L
Plt Count 71 L D 62 L
Sodium 128 L 128 L
Potassium 3.7 3.3 L
Chloride 91 L 92 L
Carbon Dioxide 29 28
BUN 81 H 79 H
Creatinine 2.7 H 2.6 H
Glucose 161 H 123 H
Calcium 8.1 L 7.8 L
Total Bilirubin 3.9 H
AST 178 H
ALT 142 H
Alkaline Phosphatase 153 H
Vital Signs:
Vital Signs
Temp Pulse Resp BP Pulse Ox
97.9 F 79 16 102/54 95
12/28/24 07:16 12/28/24 09:06 12/28/24 09:06 12/28/24 09:06 12/28/24 09:06
I&O
12/27/24 12/28/24 12/29/24
06:59 06:59 06:59
Intake Total 1000 / 1000 480 / 480
Output Total 1050 / 1050 800 / 800 200 / 200
Balance -50 / -50 -800 / -800 280 / 280
Review of Systems
-
History Source: Patient
All other systems: Reviewed and negative
Physical Exam
-
General: No Apparent Distress and Appears Chronically Ill
HEENT: Normocephalic, Atraumatic, Moist Mucous Membranes and Anicteric
Respiratory: Rhonchi and Non Labored Respirations; Negative Crackles or Accessory Resp Muscle Use
Cardiac: Regular Rhythm, S1/S2 and Other (1+ LE edema); Negative Murmur, Rub, JVD or Gallop
GI: Soft, Nontender, Nondistended and Normal Bowel Sounds
Musculoskeletal: No Clubbing and No Cyanosis
Skin: Warm and Dry; Negative Rash
Neuro: AO x 3, Nonfocal/Grossly Intact and Central Nerve's Intact; Negative Tremors
Psych: Calm
Data Reviewed
-
Labs: Labs Reviewed by me, Discussed with Nurse and Discussed with Patient
--- NOTE | 2024-12-28 11:28 | W.PN.CD ---
Today's Communication / Plan
-
Wean Norepi for MAP >65
Continue Midodrine 10 TID
80 IV Lasix x1
Impression / Plan
-
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
Cardiology consulted for concern for acute on chronic HFrEF.
Front Office Administrator: Nelson ([facility])
Hypotension
- Started on Norepinephrine overnight. On Midodrine 10 TID.
- Would turn off Norepi. MAPs are above 65
- Agree with increasing Miodrine which was done yesterday
HFrEF/ICM - EF 35%. acute on chronic
- TTE 11/12/2024: LVEF 35%, inferior and anteroseptal hypokinesis, normal RV, mild AAS, mild/mod TR, PASP 33 mmHg
- Weight is lowest on record here. suspect he has protein-calorie malnutrition from HFrEF and cirrhosis
- GDMT limited by CKD/MARIA DOLORES and baseline hypotension. On Midodrine as above
- Give IV Lasix 80mg x1
Rectal bleeding
- Received 1 unit PRBC 12/26/2024
- Underwent flexible sigmoidoscopy on 12/27/[address] Vargas where he treated angioectasias in the rectum with APC
- GI has signed off
Anasarca
- Protein/albumin are low.
- Increase protein intake
- Leg compression
Hypokalemia
- Replete K
VT - prior ICD shocks in 2020.
- he is now off of amio
- MDT ICD in place, no recent discharges. Device interrogation 12/28 with no recurrent VT or NSVT
CAD - s/p CABG.
- stable w/o angina.
- continue ASA
Cirrhosis w/ Hx of hepatic encephalopathy
- per GI
Subjective: No recurrent bleeding to his knowledge. No lightheadedness/dizziness. Breathing at baseline
Physical Exam
Vital Signs/Labs
Vital Signs
Temp Pulse Resp BP Pulse Ox
97.7 F 79 16 102/54 95
12/28/24 11:09 12/28/24 09:06 12/28/24 09:06 12/28/24 09:06 12/28/24 09:06
12/27/24 12/28/24 12/29/24
06:59 06:59 06:59
Actual Weight 208 lb 1 oz 208 lb 1 oz
12/28/24 05:13
12/28/24 05:13
PT 16.9 Sec (11.4-14.6) H 12/26/24 10:57
INR 1.34 12/26/24 10:57
Magnesium 2.6 mg/dl (1.6-2.3) H 12/27/24 03:24
12/26/24
11:15
Kzx-X-Caitdrdkaka Pept 3170
Physical Exam
Constitutional: No acute distress and Comfortable
Cardiovascular: Rhythm & rate is regular, Pedal edema present, S1S2 is normal and Murmur/rub/gallop absent
Respiratory: Respiratory effort normal and Crackles Present
Neuro/Psych: AO x 3
Data Reviewed
-
Date of Service: December 28, 2024
Medical Decision Making: Reviewed Test Results, Independent Historian Assessment, Test Interpretation and Review of Case with other Provider
EKG: Tracing Personally Visualized and interpreted
Echo: Report Reviewed by me
X-Ray/CT/US/MRI/NUC/PET: Report Reviewed by me
Labs: Labs Reviewed by me
--- NOTE | 2024-12-28 12:05 | W.PN.NEPH.PH ---
Today's Communication / Plan
-
increase midodrine
Assessment/Plan
-
Assessment
MARIA DOLORES (B/L cr 1.9 )
hyponatremia
Anemia
Hypokalemia
pancytopenia
HFrEF 35% with Moderate TR
GI bleed
cirrhosis
left pleural effusion
mild ascites
Plan
Increase midodrine to 10 mg 3 times daily
for lasix today
Replete potassium still
Overall his edema is significantly improved however.
-
-
Date of Service: December 28, 2024
CC / HPI / ROS
-
Chief Complaint:
MARIA DOLORES
History of Present Illness:
BP still low on midodrine
Hgb low stable 8.6
MARIA DOLORES/Cr stable 2.6
K low 3.3
Review of Systems:
no CP/SOB
Labs
-
Labs:
WBC 11.5 10^3/uL (4.8-10.8) H 12/28/24 05:13
RBC 2.53 10^6/uL (4.70-6.10) L 12/28/24 05:13
Hgb 8.6 g/dL (13.0-18.0) L 12/28/24 05:13
Hct 24.8 % (39.0-52.0) L 12/28/24 05:13
Plt Count 62 10^3/uL (130-400) L 12/28/24 05:13
eGFR 24.78 12/28/24 05:13
Vmt-Y-Jvixxoxxxec Pept 3170 pg/ml 12/26/24 11:15
Albumin 2.4 g/dl (3.5-5.0) L 12/28/24 05:13
Physical Exam
-
Vital Signs:
Vital Signs
Temp Pulse Resp BP Pulse Ox
97.7 F 79 16 102/54 95
12/28/24 11:09 12/28/24 09:06 12/28/24 09:06 12/28/24 09:06 12/28/24 09:06
Cardiovascular:: Regular rate and rhythm
Respiratory:: Bilateral: Coarse
Lung Excursion:: Normal
Abdomen:: Nontender and Soft
Bowel Sounds:: Normal
Extremity Edema:: +2: Bilateral:
[2024-12-28 12:36] LABS: Glucose - Point of Care 263 mg/dl (70-99)
[2024-12-28 12:57] LABS: Blood Urea Nitrogen 76 mg/dl (9-20); Calcium 8.1 mg/dl (8.4-10.2); Carbon Dioxide 28 mmol/L (22-30); Chloride 89 mmol/L (98-107); Estimated Creatinine Clearance 23 ml/min; Glucose 235 mg/dl (70-99); Potassium 3.7 mmol/L (3.5-5.1); Sodium 124 mmol/L (135-145); eGFR 22.67
[2024-12-28] MEDS: ANESTHETIC LOZENGE 1 LOZENGE PO ×2 (13:00→17:28)
[2024-12-28] MEDS: LASIX 80 MG IV (13:01)
--- NOTE | 2024-12-28 16:02 | PTOTSP ---
Dysphagia Evaluation
Patient has acute (i.e., circulatory shock) on chronic dysphagia risk factors (i.e., heart failure, COPD, DM2) and is reporting acute dysphagia (i.e., sensation of stasis in mouth/throat, retrograde flow) w/ onset 2 days ago. Cannot definitively
rule out aspiration at the bedside for which there is concern due to changes to CXR this admission and changes to lung sounds.
Recommend:
1. Regular, Thin Liquids
2. Medications as best tolerated
3. Strategies: slow rate, reflux precautions
4. Consider video swallow study objectively assess oral/pharyngeal swallow and complete esophageal screen
[2024-12-28] MEDS: LIPITOR 40 MG PO (17:23)
[2024-12-28] MEDS: FEOSOL 325 MG PO (17:23)
[2024-12-28] MEDS: THERAGRAN 1 TABLET PO (17:23)
[2024-12-28 17:34] LABS: Glucose - Point of Care 200 mg/dl (70-99)
--- NOTE | 2024-12-28 18:05 | PTCARENOTE ---
Patient AOx3. Flat and withdrawn. V-paced with BBB and first degree on monitor. Weaned patient off of levo. On RA with SpO2 greater than 92%. Moist occasional cough. Utilizes urinal. Large BM during shift. C/O sore throat. PRN lozenge given per MAY.
Assist x1 with RW when OOB. Call ralph within reach, bed in lowest position, and bed of wheels locked. updated on plan of care.
[2024-12-28] MEDS: FOLVITE 0.5 MG PO (19:23)
[2024-12-28] MEDS: ASPIR LOW (ENTERIC COATED) 81 MG PO (19:23)
[2024-12-28 21:31] LABS: Glucose - Point of Care 239 mg/dl (70-99)
[2024-12-29] VITALS (20 sets, daily range): BP systolic 75–128; BP diastolic 42–65
--- NOTE | 2024-12-29 05:34 | PTCARENOTE ---
VS remained stable throughout the night. Pt denied complaints. Able to void in urinal without difficulty. Call ralph within reach. Care ongoing.
[2024-12-29 06:02] LABS: Hematocrit 25.1 % (39.0-52.0); Hemoglobin 8.1 g/dL (13.0-18.0); Mean Corp Hgb Conc. 32.3 g/dL (33.0-37.0); Mean Corpuscular Volume 103.3 fL (80.0-94.0); Nucleated Red Blood Cells % 0 % (-); Platelet Count 60 10^3/uL (130-400); Red Cell Dist. Width 19.4 % (11.5-14.5)
[2024-12-29 06:08] LABS: ALT (SGPT) 141 U/L (0-50); AST (SGOT) 175 U/L (17-59); Albumin 2.3 g/dl (3.5-5.0); Alkaline Phosphatase 172 U/L (38-126); Blood Urea Nitrogen 85 mg/dl (9-20); Calcium 7.7 mg/dl (8.4-10.2); Carbon Dioxide 29 mmol/L (22-30); Chloride 93 mmol/L (98-107); Estimated Creatinine Clearance 27 ml/min; Glucose 128 mg/dl (70-99); Magnesium 2.4 mg/dl (1.6-2.3); Potassium 3.4 mmol/L (3.5-5.1); Sodium 128 mmol/L (135-145); Total Protein 5.2 g/dl (6.3-8.2); eGFR 27.28
--- NOTE | 2024-12-29 07:23 | W.PN.HOSP.TC ---
Today's Communication/Plan
-
cont midodrine 10 tid
iv lasix 80mg IV one dose
kcl 80meq
labs in am
moniot I's and O's
follow bcx
VSE
Left UE usg
Assessment / Plan
Assessment / Plan
#Circulatory shock
- Unclear etiology, possibly hypovolemic/hemorrhagic v. septic/aspiration with
- was placed on the Levophed for hypotension of unclear origin on the night of 12/29/2023
- Was initially admitted with blood loss anemia however hemoglobin now stable following APC
- Now off Levophed, WBC downtrending without intervention; will hold off on antibiotics unless WBC uptrend or new fever present
- Continue with midodrine to 10 mg 3 times daily, continue to monitor vitals
- Continue to hold home Lasix and metolazone
- Measure blood pressure in both arms if low
- Consider RHC to assess volume status
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
#Anemia of chronic disease
- Received 1 unit of PRBC here, hemoglobin has persistently been around 8, today it is 8.1
- Bleeding likely from radiation proctitis; s/p flex sig on 12/27 with bleeding ectasias that received APC
- Hemoglobin remained stable, GI has since signed off
# Left UE swelling
- USG ordered
#Liver cirrhosis C/B ascites, HE, thrombocytopenia
#Chronic transaminitis
- Question of amiodarone induced liver toxicity, recently was discontinued
- MELD 3.0 score of 30; correlating to 73% to 60 days survival
- Home regimen includes Lasix, lactulose + Xifaxan, midodrine
- Recently had therapeutic paracentesis, no signs of SBP
- Holding home diuretics as above, monitor for recurrence of ascites
#Hypervolemic hyponatremia
- improving with FR diet and holding home diuretic
- Serum sodium back to 128; nephrology evaluated, recommended to continue holding diuretics
- Continue to trend BMP and hold home Lasix/metolazone
- Monitor volume status, I's and O's, weight
- Consider repeat urine studies if worsened
# hypoK
- 80 meq kcl today(40 in am and 40 in pm)
#Pre-renal MARIA DOLORES on CKD stage III
- Creatinine baseline near 2.0; likely with a degree of AL CKD, no chronic acidemia or known BMD
- Suspect prerenal etiology as was recently started on metolazone; creatinine improving with diuretics held
- Creatinine was up to 3.1 on arrival, has improved down to 2.4 with diuretics held
- Will continue current management and trend BMP, UOP
- Avoid nephrotoxic agents
#Chronic HFrEF
#Ischemic cardiomyopathy
#CAD s/p CABG
- Last TTE with LVEF 35%, mild aortic stenosis, preserved RV function
- GDMT includes no GDMT due to chronic hypotension and renal insufficiency
- Diuretic regimen includes Lasix 80 mg twice daily and metolazone 2.5 mg daily
- Diuretics currently on hold as above due to circulatory shock and MARIA DOLORES
- Has remained on room air; volume status stable off diuretics
- Continue to trend I's and O's, daily weights and resume Lasix when able
- Resume high intensity statin as guideline directed therapy
- one time dose IV lasix 80mg today
#History of VT
-Previous regimen included amiodarone which was discontinued due to likely associated liver disease
-No longer on any antiarrhythmic therapy, including beta-hemant or CCB
-Has AICD currently in place
#COPD
- Likely GOLD A-B; Home regimen includes Trelegy equivalent with Advair and Spiriva
- No recent pulmonary function test available to review
- No signs of COPD exacerbation on home regimen
#IDDM-2
- Home regimen previously included metformin; insulin lispro 5 units with meals
- Metformin was discontinued; remains on ISS alone
- Blood glucose goal 140-180
#H/O prostate cancer S/P XRT C/B radiation proctitis
#PAD s/p stent and endarterectomy
- Home regimen includes aspirin, not currently on statin per our records
- Will resume nightly statin at atorvastatin 20 mg for now
- Follow-up as OP and uptitrate as needed, LDL goal <70
DVT prophylaxis: SCDs
Diet: low fat, sodium restricted, diabetic
CODE STATUS: Full code
Disposition: Home care when medically stable
Anticipated Discharge: 24 - 48 hours
Subjective/Interval History
-
Date of Service: December 29, 2024
Afebrile. Blood pressure with soft readings. Offers no new complaints.
Objective Data
-
Labs:
Laboratory Results
12/29/24
04:59
WBC 8.0
Hgb 8.1 L
Hct 25.1 L
Plt Count 60 L
Sodium 128 L
Potassium 3.4 L
Chloride 93 L
Carbon Dioxide 29
BUN 85 H
Creatinine 2.4 H
Glucose 128 H
Calcium 7.7 L
Total Bilirubin 3.3 H
AST 175 H
ALT 141 H
Alkaline Phosphatase 172 H
Vital Signs:
Vital Signs
Temp Pulse Resp BP Pulse Ox
98.3 F 74 12 109/46 95
12/29/24 07:07 12/29/24 05:00 12/29/24 05:00 12/29/24 05:00 12/29/24 07:08
I&O
12/28/24 12/29/24 12/30/24
06:59 06:59 06:59
Intake Total 960 / 960
Output Total 800 / 800 1600 / 1600
Balance -800 / -800 -640 / -640
Review of Systems
-
History Source: Patient
All other systems: Reviewed and negative
Physical Exam
-
General: No Apparent Distress and Appears Chronically Ill
HEENT: Normocephalic, Atraumatic, Moist Mucous Membranes and Anicteric
Respiratory: Non Labored Respirations; Negative Crackles or Accessory Resp Muscle Use
Cardiac: Regular Rhythm, S1/S2 and Other (1+ LE edema); Negative Murmur, Rub, JVD or Gallop
GI: Soft, Nontender, Nondistended and Normal Bowel Sounds
Musculoskeletal: No Clubbing and No Cyanosis
Skin: Warm and Dry; Negative Rash
Neuro: AO x 3, Nonfocal/Grossly Intact and Central Nerve's Intact; Negative Tremors
Psych: Calm
Data Reviewed
-
Labs: Labs Reviewed by me, Discussed with Physician and Discussed with Patient
[2024-12-29] MEDS: ADVAIR HFA 230/21 MCG INHALER 2 PUFF INH ×2 (07:32→19:57)
[2024-12-29] MEDS: SPIRIVA RESPIMAT 2.5 MCG 2 PUFF INH (07:32)
[2024-12-29] MEDS: XIFAXAN 550 MG PO ×2 (08:23→20:17)
[2024-12-29] MEDS: MUCINEX 600 MG PO ×2 (08:23→20:17)
[2024-12-29] MEDS: VITAMIN C 500 MG PO (08:23)
[2024-12-29] MEDS: DUPHALAC/CHRONULAC 10 GRAMS PO ×2 (08:25→20:16)
[2024-12-29] MEDS: NOVOLOG FLEXPEN 5 UNITS SC ×3 (08:26→18:03)
[2024-12-29 08:38] LABS: Glucose - Point of Care 140 mg/dl (70-99)
[2024-12-29] MEDS: KCL 40 MEQ PO ×2 (09:15→16:20)
[2024-12-29] MEDS: LASIX 80 MG IV (12:32)
--- NOTE | 2024-12-29 13:03 | W.PN.NEPH.PH ---
Today's Communication / Plan
-
cont lasix, replace k, recheck labs later today
Assessment/Plan
-
Assessment
MARIA DOLORES (B/L cr 1.9 )
hyponatremia
Anemia
Hypokalemia
pancytopenia
HFrEF 35% with Moderate TR
GI bleed
cirrhosis
left pleural effusion
mild ascites
Plan
cont diuresis cr improving to 2.4
lasix 80mg BID , replace k
BP stable on high dose midodrine 10 mg 3 times daily
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
no metolazone yet
improving hypervolemic hyponatremia
check labs and daily wts
d/w pt and at bedside
-
-
Date of Service: December 29, 2024
CC / HPI / ROS
-
Chief Complaint:
MARIA DOLORES
History of Present Illness:
BP soft on midodrine
Hgb low stable 8.1
MARIA DOLORES/Cr stable 2.4
K low 3.4
Review of Systems:
no CP/SOB at rest
Labs
-
Labs:
WBC 8.0 10^3/uL (4.8-10.8) 12/29/24 04:59
RBC 2.43 10^6/uL (4.70-6.10) L 12/29/24 04:59
Hgb 8.1 g/dL (13.0-18.0) L 12/29/24 04:59
Hct 25.1 % (39.0-52.0) L 12/29/24 04:59
Plt Count 60 10^3/uL (130-400) L 12/29/24 04:59
Sodium 128 mmol/L (135-145) L 12/29/24 04:59
Potassium 3.4 mmol/L (3.5-5.1) L 12/29/24 04:59
Chloride 93 mmol/L (98-107) L 12/29/24 04:59
Carbon Dioxide 29 mmol/L (22-30) 12/29/24 04:59
BUN 85 mg/dl (9-20) H 12/29/24 04:59
Creatinine 2.4 mg/dL (0.7-1.3) H 12/29/24 04:59
eGFR 27.28 12/29/24 04:59
Glucose 128 mg/dl (70-99) H 12/29/24 04:59
Calcium 7.7 mg/dl (8.4-10.2) L 12/29/24 04:59
Ygj-B-Sjyftezpuvz Pept 3170 pg/ml 12/26/24 11:15
Albumin 2.3 g/dl (3.5-5.0) L 12/29/24 04:59
Physical Exam
-
Vital Signs:
Vital Signs
Temp Pulse Resp BP Pulse Ox
97.6 F 80 15 104/65 97
12/29/24 11:22 12/29/24 11:34 12/29/24 11:34 12/29/24 11:34 12/29/24 10:00
Cardiovascular:: Regular rate and rhythm
Respiratory:: Bilateral: Coarse
Lung Excursion:: Normal
Abdomen:: Distended, Nontender and Soft
Extremity Edema:: +2: Bilateral:
Chávez Catheter: No
--- NOTE | 2024-12-29 13:16 | CM ---
F/U: Patient is still receiving medical care and being monitored. PT/OT recommended Home PT so patient is still being followed by [facility] for discharge. PLAN: Home PT with [facility].
--- NOTE | 2024-12-29 13:36 | PTCARENOTE ---
Patient off unit to for testing, US and video swallow.
--- NOTE | 2024-12-29 13:40 | W.PN.CD ---
Today's Communication / Plan
-
I think we do not need more IV Lasix
Not on much GDMT, add as able
Stop IV Lasix, no Lasix until Friday AM, move to usual PO Lasix starting Friday (12/31/2024)
Impression / Plan
-
Background: 74 yo male (known to his oracle drm consultant Dr. Damon at [facility]) with VT now off of amiodarone, MDT BiV ICD, heart block, pacer dependent, CAD s/p CABG, HFrEF, HTN, HLD, PAD, DM, cirrhosis of liver and prostate cancer, who presented to the ER
with weakness and recurrent BRBPR. Cardiology consulted for concern for acute on chronic HFrEF.
Brand Engineer: Nelson ([facility])
HFrEF/ICM - EF 35%. acute on chronic => now compensated, 94.5-95 kg likely a good weight
- Weight is lowest on record here. suspect he has protein-calorie malnutrition from HFrEF and cirrhosis
- GDMT limited by CKD/MARIA DOLORES and baseline hypotension. On Midodrine as above
- Give IV Lasix 80mg x1
- MDT ICD check shows optivol was up but is now down suggesting heart failure is now compensated
- Not on much GDMT, add as able
- Stop IV Lasix, no Lasix until Friday AM, move to usual PO Lasix starting Friday (12/31/2024)
Renal failure
- Cr 1.1 in 03/2021
- Next Cr we have is form , Cr now 3-2.2
- Renal involved, renal finds new baseline 1.9
Anasarca
- Protein/albumin are low.
- Increase protein intake
- Leg compression
- His edema is at baseline
- MDT ICD check shows optivol was up but is now down suggesting heart failure is now compensated
Lower BP
- On midodrine
Rectal bleeding, Received 1 unit PRBC 12/26/2024 and angiectasias in the rectum treated by GI, GI has signed off
Known prior VT and VF treated by his MDT BiV ICD, last ICD gen change 2020
- No recent VT/VF by device check 12/28/2024, but recently off Amiodarone
- MDT ICD in place, no recent discharges. Device interrogation 12/28 with no recurrent VT or NSVT
Complete heart block, pacer dependent, biv device in place
CAD - s/p CABG, stable w/o angina,continue ASA
Cirrhosis w/ Hx of hepatic encephalopathy
Subjective: No recurrent bleeding to his knowledge. No lightheadedness/dizziness. Breathing at baseline
Data:
- TTE 11/12/2024: LVEF 35%, inferior and anteroseptal hypokinesis, normal RV, mild AAS, mild/mod TR, PASP 33 mmHg
Physical Exam
Vital Signs/Labs
Vital Signs
Temp Pulse Resp BP Pulse Ox
97.6 F 80 15 104/65 97
12/29/24 11:22 12/29/24 11:34 12/29/24 11:34 12/29/24 11:34 12/29/24 10:00
12/28/24 12/29/24 12/30/24
06:59 06:59 06:59
Actual Weight 94.376 kg
12/29/24 04:59
PT 16.9 Sec (11.4-14.6) H 12/26/24 10:57
INR 1.34 12/26/24 10:57
Magnesium 2.4 mg/dl (1.6-2.3) H 12/29/24 04:59
12/26/24
11:15
Xhv-R-Gaoysnfefov Pept 3170
Physical Exam
Constitutional: No acute distress
EENT: Anicteric
Cardiovascular: Rhythm & rate is regular and Pedal edema present
Respiratory: Respiratory effort normal and Lungs clear to auscul.
GI: Soft and Distention absent
Neuro/Psych: AO x 3
Data Reviewed
-
Date of Service: December 29, 2024
--- NOTE | 2024-12-29 14:00 | PTOTSP ---
Speech Language Pathology
VIDEOFLUOROSCOPIC SWALLOWING EXAMINATION (VSE) completed. Oropharyngeal swallow WFL. Only trace intermittent pharyngeal residue. Infrequent supraglottic laryngeal penetration. No aspiration noted on study. Residue noted on esophageal sweep.
Recommend:
(1) Regular solids/thin liquids
(2) General aspiration precautions
(3) Meds as tolerated
(4) Can consider GI consult as indicated
(5) MAINTENANCE AIDE to sign off. Please reconsult as indicated
[2024-12-29 15:31] LABS: Glucose - Point of Care 172 mg/dl (70-99)
[2024-12-29 17:01] LABS: Blood Urea Nitrogen 85 mg/dl (9-20); Calcium 8.3 mg/dl (8.4-10.2); Carbon Dioxide 27 mmol/L (22-30); Chloride 90 mmol/L (98-107); Estimated Creatinine Clearance 27 ml/min; Glucose 187 mg/dl (70-99); Potassium 3.8 mmol/L (3.5-5.1); Sodium 125 mmol/L (135-145); eGFR 27.28
[2024-12-29] MEDS: LIPITOR 40 MG PO (17:39)
[2024-12-29] MEDS: THERAGRAN 1 TABLET PO (17:39)
[2024-12-29 17:40] LABS: Glucose - Point of Care 246 mg/dl (70-99)
--- NOTE | 2024-12-29 18:38 | PTCARENOTE ---
pt transferred to [facility]. report given to Lali. VSE and ultrasound left arm done prior to transfer. reports pts hands trembling. reported to resident. per this happens occasionally and she thinks he needs increased lactulose dose.
pink band placed on left arm as US report is superficial clot. tow doses of kdur given as ordered. repeat bmp sent prior to transfer.
[2024-12-29] MEDS: FOLVITE 0.5 MG PO (20:18)
[2024-12-29] MEDS: ASPIR LOW (ENTERIC COATED) 81 MG PO (20:19)
[2024-12-29 21:24] LABS: Glucose - Point of Care 215 mg/dl (70-99)
[2024-12-29] MEDS: SAMSCA 7.5 MG PO (22:35)
[2024-12-30] VITALS (8 sets, daily range): BP systolic 97–136; BP diastolic 45–61; BMI 29.9
--- NOTE | 2024-12-30 07:26 | W.PN.HOSP.TC ---
Addendum entered and electronically signed by Jonh Boyer DO 12/30/24 11:49:
Update:
1) ultrasound of the upper extremity yesterday showed superficial thrombophlebitis. Continue with warm compresses and Tylenol
2) right ankle pain. Has been present intermittently, noted prior to arrival here. Will check x-ray and ultrasound of RLE
Addendum entered and electronically signed by Bandar Santos MD, Resident 12/30/24 11:00:
Acute on chronic HFrEF
Original Note:
Today's Communication/Plan
-
right foot xray
vascular usg right LE
Assessment / Plan
Assessment / Plan
#Circulatory shock
- Unclear etiology, possibly hypovolemic/hemorrhagic v. septic/aspiration with
- was placed on the Levophed for hypotension of unclear origin on the night of 12/29/2023
- Was initially admitted with blood loss anemia however hemoglobin now stable following APC
- Now off Levophed, WBC downtrending without intervention; will hold off on antibiotics unless WBC uptrend or new fever present
- Continue with midodrine to 10 mg 3 times daily, continue to monitor vitals
- Continue to hold home Lasix and metolazone
- Measure blood pressure in both arms if low
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
#Anemia of chronic disease
- Received 1 unit of PRBC here, hemoglobin has persistently been around 8, today it is 8.1
- Bleeding likely from radiation proctitis; s/p flex sig on 12/27 with bleeding ectasias that received APC
- Hemoglobin remained stable, GI has since signed off
# Left UE swelling
- USG with no DVT
# Right foot pain
- Check x-ray and vascular ultrasound
#Liver cirrhosis C/B ascites, HE, thrombocytopenia
#Chronic transaminitis
- Question of amiodarone induced liver toxicity, recently was discontinued
- MELD 3.0 score of 30; correlating to 73% to 60 days survival
- Home regimen includes Lasix, lactulose + Xifaxan, midodrine
- Recently had therapeutic paracentesis, no signs of SBP
- Holding home diuretics as above, monitor for recurrence of ascites
#Hypervolemic hyponatremia
- improving with FR diet and holding home diuretic; fluid restriction down to 40 now
- Serum sodium back to 126; nephrology evaluated, recommended to continue holding diuretics
- Continue to trend BMP and hold home Lasix/metolazone
- Monitor volume status, I's and O's, weight
- Consider repeat urine studies if worsened
# hypoK
- Improved
#Pre-renal MARIA DOLORES on CKD stage III
- Creatinine baseline near 2.0; likely with a degree of AL CKD, no chronic acidemia or known BMD
- Suspect prerenal etiology as was recently started on metolazone; creatinine improving with diuretics held
- Creatinine was up to 3.1 on arrival, has improved down to 2.2 with p.o. diuretics held
- Will continue current management and trend BMP, UOP
- Avoid nephrotoxic agents
#Chronic HFrEF
#Ischemic cardiomyopathy
#CAD s/p CABG
- Last TTE with LVEF 35%, mild aortic stenosis, preserved RV function
- GDMT includes no GDMT due to chronic hypotension and renal insufficiency
- home Diuretic regimen includes Lasix 80 mg twice daily and metolazone 2.5 mg daily
- Has remained on room air; volume status stable off diuretics
- Continue to trend I's and O's, daily weights and resume Lasix when able
- Resume high intensity statin as guideline directed therapy
- lasix IV 80mg bid per cardio
#History of VT
-Previous regimen included amiodarone which was discontinued due to likely associated liver disease
-No longer on any antiarrhythmic therapy, including beta-hemant or CCB
-Has AICD currently in place
#COPD
- Likely GOLD A-B; Home regimen includes Trelegy equivalent with Advair and Spiriva
- No recent pulmonary function test available to review
- No signs of COPD exacerbation on home regimen
#IDDM-2
- Home regimen previously included metformin; insulin lispro 5 units with meals
- Metformin was discontinued; remains on ISS alone
- Blood glucose goal 140-180
#H/O prostate cancer S/P XRT C/B radiation proctitis
#PAD s/p stent and endarterectomy
- Home regimen includes aspirin, not currently on statin per our records
- Will resume nightly statin at atorvastatin 20 mg for now
- Follow-up as OP and uptitrate as needed, LDL goal <70
DVT prophylaxis: SCDs
Diet: low fat, sodium restricted, diabetic
CODE STATUS: Full code
Disposition: Home care when medically stable
Anticipated Discharge: 24 - 48 hours
Subjective/Interval History
-
Date of Service: December 30, 2024
AFVSS. Complains of right foot pain and swelling.
Objective Data
-
Labs:
Laboratory Results
12/30/24
06:00
WBC Pending
Hgb Pending
Hct Pending
Plt Count Pending
Sodium Pending
Potassium Pending
Chloride Pending
Carbon Dioxide Pending
BUN Pending
Creatinine Pending
Glucose Pending
Calcium Pending
Vital Signs:
Vital Signs
Temp Pulse Resp BP Pulse Ox
97.6 F 49 17 136/60 98
12/30/24 03:03 12/30/24 03:03 12/30/24 03:03 12/30/24 03:03 12/30/24 03:03
I&O
12/29/24 12/30/24 12/31/24
06:59 06:59 06:59
Intake Total 960 / 960 1620 / 1620
Output Total 1600 / 1600 1979
Balance -640 / -640 -360 / -360
Review of Systems
-
History Source: Patient
All other systems: Reviewed and negative
Physical Exam
-
General: No Apparent Distress and Appears Chronically Ill
HEENT: Normocephalic, Atraumatic, Moist Mucous Membranes and Anicteric
Respiratory: Non Labored Respirations; Negative Crackles or Accessory Resp Muscle Use
Cardiac: Regular Rhythm, S1/S2 and Other (1+ LE edema); Negative Murmur, Rub, JVD or Gallop
GI: Soft, Nontender, Nondistended and Normal Bowel Sounds
Musculoskeletal: No Clubbing and No Cyanosis
Skin: Warm and Dry; Negative Rash
Neuro: AO x 3, Nonfocal/Grossly Intact and Central Nerve's Intact; Negative Tremors
Psych: Calm
Data Reviewed
-
Ultrasound: Report Reviewed by me, Discussed with Physician and Discussed with Patient
Labs: Labs Reviewed by me, Discussed with Physician and Discussed with Patient
[2024-12-30 07:42] LABS: Glucose - Point of Care 130 mg/dl (70-99)
--- NOTE | 2024-12-30 07:50 | W.PN.CD ---
Today's Communication / Plan
-
IV diuresis --> Nephro following
Impression / Plan
-
Background: 74 yo male (known to his ladle patcher Dr. Damon at [facility]) with VT now off of amiodarone, MDT BiV ICD, heart block, pacer dependent, CAD s/p CABG, HFrEF, HTN, HLD, PAD, DM, cirrhosis of liver and prostate cancer, who presented to the ER
with weakness and recurrent BRBPR. Cardiology consulted for concern for acute on chronic HFrEF.
Roll On Man: Nelson ([facility])
HFrEF/ICM - EF 35%. acute on chronic => now compensated, 94.5-95 kg likely a good weight
- Weight is lowest on record here. suspect he has protein-calorie malnutrition from HFrEF and cirrhosis
- GDMT limited by CKD/MARIA DOLORES and baseline hypotension. On Midodrine as above
- Give IV Lasix 80mg x1
- MDT ICD check shows optivol was up but is now down suggesting heart failure is now compensated
- Not on much GDMT, add as able
- weight is lowest its been, however still appears to have hypervolemic hyponatremia
Renal failure
- Cr 1.1 in 03/2021
- Next Cr we have is form , Cr now 3-2.2
- Renal involved, renal finds new baseline 1.9
Anasarca
- Protein/albumin are low.
- Increase protein intake
- Leg compression
- His edema is at baseline
- MDT ICD check shows optivol was up but is now down suggesting heart failure is now compensated
Lower BP
- On midodrine
Rectal bleeding, Received 1 unit PRBC 12/26/2024 and angiectasias in the rectum treated by GI, GI has signed off
Known prior VT and VF treated by his MDT BiV ICD, last ICD gen change 2020
- No recent VT/VF by device check 12/28/2024, but recently off Amiodarone
- MDT ICD in place, no recent discharges. Device interrogation 12/28 with no recurrent VT or NSVT
Complete heart block, pacer dependent, biv device in place
CAD - s/p CABG, stable w/o angina,continue ASA
Cirrhosis w/ Hx of hepatic encephalopathy
Subjective: bloody nose overnight breathing stable
Data:
- TTE 11/12/2024: LVEF 35%, inferior and anteroseptal hypokinesis, normal RV, mild AAS, mild/mod TR, PASP 33 mmHg
Physical Exam
Vital Signs/Labs
Vital Signs
Temp Pulse Resp BP Pulse Ox
97.8 F 77 20 118/46 94
12/30/24 07:00 12/30/24 07:00 12/30/24 07:00 12/30/24 07:00 12/30/24 07:00
12/29/24 12/30/24 12/31/24
06:59 06:59 06:59
Actual Weight 208 lb 9.6 oz
PT 16.9 Sec (11.4-14.6) H 12/26/24 10:57
INR 1.34 12/26/24 10:57
Magnesium 2.4 mg/dl (1.6-2.3) H 12/29/24 04:59
12/26/24
11:15
Pqi-H-Obcfcxelwud Pept 3170
Physical Exam
Constitutional: No acute distress and Comfortable
EENT: Anicteric
Cardiovascular: Rhythm & rate is regular (paced) and Pedal edema present
Respiratory: Respiratory effort normal and Lungs clear to auscul.
GI: Soft
Neuro/Psych: AO x 3
Data Reviewed
-
Date of Service: December 30, 2024
EKG: Tracing Personally Visualized and interpreted (paced)
Echo: Report Reviewed by me
Labs: Labs Reviewed by me
[2024-12-30] MEDS: DUPHALAC/CHRONULAC 10 GRAMS PO ×2 (08:00→20:15)
[2024-12-30] MEDS: VITAMIN C 500 MG PO (08:02)
[2024-12-30] MEDS: MUCINEX 600 MG PO ×2 (08:02→20:15)
[2024-12-30] MEDS: XIFAXAN 550 MG PO ×2 (08:02→20:15)
[2024-12-30] MEDS: NOVOLOG FLEXPEN 5 UNITS SC ×3 (08:06→18:16)
[2024-12-30] MEDS: SPIRIVA RESPIMAT 2.5 MCG 2 PUFF INH (08:10)
[2024-12-30] MEDS: ADVAIR HFA 230/21 MCG INHALER 2 PUFF INH ×2 (08:10→19:16)
[2024-12-30 08:20] LABS: Hematocrit 24.2 % (39.0-52.0); Hemoglobin 8.3 g/dL (13.0-18.0); Mean Corp Hgb Conc. 34.3 g/dL (33.0-37.0); Mean Corpuscular Volume 96.0 fL (80.0-94.0); Platelet Count 71 10^3/uL (130-400); Red Cell Dist. Width 18.6 % (11.5-14.5)
[2024-12-30 08:32] LABS: Blood Urea Nitrogen 82 mg/dl (9-20); Calcium 8.0 mg/dl (8.4-10.2); Carbon Dioxide 27 mmol/L (22-30); Chloride 93 mmol/L (98-107); Estimated Creatinine Clearance 29 ml/min; Glucose 116 mg/dl (70-99); Potassium 3.6 mmol/L (3.5-5.1); Sodium 126 mmol/L (135-145); eGFR 30.28
[2024-12-30] MEDS: LASIX IV ×2 (11:05→12:30)
[2024-12-30 11:53] LABS: Glucose - Point of Care 208 mg/dl (70-99)
--- NOTE | 2024-12-30 12:32 | PN.CDI ---
CDI
- -
CDI:
Physician Documentation Request
Admit Date: 12/26/24 15:10
Dear Doctor,
Patient admitted for GI bleed.
Selected Entries
12/26/24
22:33 12/30/24
10:00
Pressure injury appearance [Present on admission Sacrum] Boomer wound bed
Pressure injury stage [Present on admission Sacrum] Stage 2 Stage 2
Surrounding Skin - [Present on admission Sacrum] Dry and intact Dry and intact
Treatment provided [Present on admission Sacrum] Silicone border
foam Cleansed with
saline
Silicone border
foam
Physician documentation of the type and location of wounds is required for compliant documentation. Based on the above clinical findings and your assessment, please provide the following in your progress note:
1. Location of the ulcer/wound, including laterality.
2. Type (etiology) of ulcer/wound:
- Diabetic ulcer
- Arterial (ischemic) ulcer
- Traumatic wound
- Venous stasis ulcer
- Pressure (decubitus) ulcer
- Non-healing surgical wound
- Other
- Unable to determine
3. For a non-pressure ulcer, please indicate the depth/severity:
- Limited to the breakdown of skin
- With fat layer exposed
- With necrosis of muscle
- With necrosis of bone
- Other
- Unable to determine
4. If a pressure ulcer, please also include the stage* of the ulcer:
- Stage 1 - Skin intact, non-blanchable redness
- Stage 2 - Partial thickness loss of dermis, includes intact or open blister
- Stage 3 - Full thickness tissue not including bone, tendon or muscle
- Stage 4 - Full thickness tissue loss, including exposed bone, tendon or muscle
- Unstageable - Full thickness loss in which the base of the ulcer is covered by slough (yellow, castro, hines, green or brown) and/or eschar (castro, brown or black) in the wound bed.
- Unable to determine
Use of terms such as suspected, likely, concern for, or probable (associated with a specific diagnosis that is being evaluated, monitored, or treated as if it exists) are acceptable and can be coded in the inpatient setting, when documented at the
time of discharge.
Thank you,
Anitra Linares RN, BSN
CDI Specialist
Available via [employer] text
Please use your independent medical judgment in providing your response.
*Source: National Pressure Ulcer Advisory Panel (NPUAP)
--- NOTE | 2024-12-30 12:40 | CM ---
Patient seen at bedside with
current with [facility]
Referral in [facility]
PLAN: home with [facility] when stable
[2024-12-30] MEDS: LASIX 80 MG IV (12:49)
--- NOTE | 2024-12-30 14:45 | W.PN.NEPH.PH ---
Today's Communication / Plan
-
cont lasix , samsca tonight
Assessment/Plan
-
Assessment
MARIA DOLORES (B/L cr 1.9 )
hyponatremia
Anemia
Hypokalemia
pancytopenia
HFrEF 35% with Moderate TR
GI bleed
cirrhosis
left pleural effusion
mild ascites
Plan
cont diuresis cr improving to 2.2
lasix 80mg now , replace k prn
BP stable on high dose midodrine 10 mg 3 times daily
still with sig edema despite losing wt MANAGED CARE LIAISON
suspect all edema is not amenable to diuresis
no metolazone yet
improving hypervolemic hyponatremia s/p samsca, repeat dose today
check labs and daily wts
d/w pt and at bedside
-
-
Date of Service: December 30, 2024
CC / HPI / ROS
-
Chief Complaint:
MARIA DOLORES
History of Present Illness:
BP soft on midodrine
Hgb low stable 8.1
MARIA DOLORES/Cr stable 2.2, sodium up at 126 from 125 last night
K normal
Review of Systems:
no CP/SOB at rest
Labs
-
Labs:
WBC 7.8 10^3/uL (4.8-10.8) 12/30/24 07:36
RBC 2.52 10^6/uL (4.70-6.10) L 12/30/24 07:36
Hgb 8.3 g/dL (13.0-18.0) L 12/30/24 07:36
Hct 24.2 % (39.0-52.0) L 12/30/24 07:36
Plt Count 71 10^3/uL (130-400) L 12/30/24 07:36
Sodium 126 mmol/L (135-145) L 12/30/24 07:36
Potassium 3.6 mmol/L (3.5-5.1) 12/30/24 07:36
Chloride 93 mmol/L (98-107) L 12/30/24 07:36
Carbon Dioxide 27 mmol/L (22-30) 12/30/24 07:36
BUN 82 mg/dl (9-20) H 12/30/24 07:36
Creatinine 2.2 mg/dL (0.7-1.3) H 12/30/24 07:36
eGFR 30.28 12/30/24 07:36
Glucose 116 mg/dl (70-99) H 12/30/24 07:36
Calcium 8.0 mg/dl (8.4-10.2) L 12/30/24 07:36
Txv-P-Vizoukunnjg Pept 3170 pg/ml 12/26/24 11:15
Albumin 2.3 g/dl (3.5-5.0) L 12/29/24 04:59
Physical Exam
-
Vital Signs:
Vital Signs
Temp Pulse Resp BP Pulse Ox
97.5 F 89 16 124/54 98
12/30/24 11:00 12/30/24 11:00 12/30/24 11:00 12/30/24 11:00 12/30/24 11:00
Cardiovascular:: Regular rate and rhythm
Respiratory:: Bilateral: CTA
Lung Excursion:: Normal
Abdomen:: Nontender and Soft
Extremity Edema:: +2: Bilateral:
Chávez Catheter: No
--- NOTE | 2024-12-30 15:41 | W.PN.UPDATE ---
Update Note
Progress Note Update
Was texted by medical team that the patient has developed a right leg DVT and an upper extremity superficial clot and they are asking for recommendations on anticoagulation
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 However if he needs it you could start Eliquis and any signs of bleeding stop the medication and consider an IVC filter
--- NOTE | 2024-12-30 15:51 | W.PN.UPDATE ---
Update Note
Progress Note Update
Right lower extremity DVT involving the gastrocnemius vein. will start Eliquis 5mg BID. Discussed with GI. will order low dose due to high risk of bleed and DVT not to the lebel of femoral Vein, low risk of PE. updated pharmacist for lower dose.
[2024-12-30 16:57] LABS: Glucose - Point of Care 167 mg/dl (70-99)
[2024-12-30] MEDS: LIPITOR 40 MG PO (18:15)
[2024-12-30] MEDS: SAMSCA 30 MG PO (18:15)
[2024-12-30] MEDS: FEOSOL 325 MG PO (18:15)
[2024-12-30] MEDS: THERAGRAN 1 TABLET PO (18:15)
[2024-12-30] MEDS: ELIQUIS 5 MG PO (20:15)
[2024-12-30 21:50] LABS: Glucose - Point of Care 180 mg/dl (70-99)
[2024-12-30] MEDS: ASPIR LOW (ENTERIC COATED) 81 MG PO (21:55)
[2024-12-30] MEDS: FOLVITE 0.5 MG PO (21:56)
[2024-12-31] VITALS (27 sets, daily range): BP systolic 87–125; BP diastolic 40–103
[2024-12-31] MEDS: SPIRIVA RESPIMAT 2.5 MCG 2 PUFF INH (07:12)
[2024-12-31] MEDS: ADVAIR HFA 230/21 MCG INHALER 2 PUFF INH (07:12)
--- NOTE | 2024-12-31 07:30 | W.PN.HOSP.TC ---
Addendum entered and electronically signed by Jonh Boyer DO 12/31/24 13:03:
CDI: Stage II sacral pressure injury, POA
Original Note:
Today's Communication/Plan
-
Discontinue Eliquis
cbc at 2
Replete potassium
GI reconsulted
Consideration for IVC with IR
Assessment / Plan
Assessment / Plan
#Circulatory shock
- Unclear etiology, possibly hypovolemic/hemorrhagic v. septic/aspiration with
- was placed on the Levophed for hypotension of unclear origin on the night of 12/29/2023
- Was initially admitted with blood loss anemia however hemoglobin now stable following APC
- Now off Levophed, WBC wnl
- Continue with midodrine to 10 mg 3 times daily, continue to monitor vitals
- Continue IV lasix per cardio; consideration for metolazone this afternoon
- Measure blood pressure in both arms if low
# Bacteremia
- Blood culture from yesterday showed gram-negative bacilli
- Start empiric cefepime
- Check chest x-ray, urinalysis
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
#Anemia of chronic disease
- Received 1 unit of PRBC here, hemoglobin has persistently been around 8, today it is 8.1
- Bleeding likely from radiation proctitis; s/p flex sig on 12/27 with bleeding ectasias that received APC
- Hemoglobin remained stable however will recheck today at 2 since patient had 2 episodes of rectal bleeding in the AM
# Left UE swelling
- USG with no DVT, + superficial thrombophlebitis
# Right foot pain
# Right ankle swelling
-Ultrasound positive for DVT
- Started patient on Eliquis 12/30 after discussing with GI however today patient had 2 episodes of BRBPR
Will discontinue Eliquis
-Consideration for IVC filter with IR
#Liver cirrhosis C/B ascites, HE, thrombocytopenia
#Chronic transaminitis
- Question of amiodarone induced liver toxicity, recently was discontinued
- MELD 3.0 score of 30; correlating to 73% to 60 days survival
- Home regimen includes Lasix, lactulose + Xifaxan, midodrine
- Recently had therapeutic paracentesis, no signs of SBP
- Holding home diuretics as above, monitor for recurrence of ascites
#Hypervolemic hyponatremia
- improving with FR diet and holding home diuretic; fluid restriction down to 40 now
- Serum sodium back to 127; nephrology following ; s/p 1 dose of Samsca on 12/30/2024
- Continue to trend BMP
- Monitor volume status, I's and O's, weight
- Consider repeat urine studies if worsened
# hypoK
- Replete
#Pre-renal MARIA DOLORES on CKD stage III
- Creatinine baseline near 2.0; likely with a degree of AL CKD, no chronic acidemia or known BMD
- Suspect prerenal etiology as was recently started on metolazone; creatinine improving with diuretics held
- Creatinine was up to 3.1 on arrival, has improved down to 2.2 with p.o. diuretics held however today 2.4
- Will continue current management and trend BMP, UOP
- Avoid nephrotoxic agents
# Acute on chronic HFrEF
#Ischemic cardiomyopathy
#CAD s/p CABG
- Last TTE with LVEF 35%, mild aortic stenosis, preserved RV function
- GDMT includes no GDMT due to chronic hypotension and renal insufficiency
- home Diuretic regimen includes Lasix 80 mg twice daily and metolazone 2.5 mg daily
- Has remained on room air; volume status stable off diuretics
- Continue to trend I's and O's, daily weights and resume Lasix when able
- Resume high intensity statin as guideline directed therapy
- lasix IV 80mg bid per cardio
#History of VT
-Previous regimen included amiodarone which was discontinued due to likely associated liver disease
-No longer on any antiarrhythmic therapy, including beta-hemant or CCB
-Has AICD currently in place
#COPD
- Likely GOLD A-B; Home regimen includes Trelegy equivalent with Advair and Spiriva
- No recent pulmonary function test available to review
- No signs of COPD exacerbation on home regimen
#IDDM-2
- Home regimen previously included metformin; insulin lispro 5 units with meals
- Metformin was discontinued; remains on ISS alone
- Blood glucose goal 140-180
#H/O prostate cancer S/P XRT C/B radiation proctitis
#PAD s/p stent and endarterectomy
- Home regimen includes aspirin, not currently on statin per our records
- Will resume nightly statin at atorvastatin 20 mg for now
- Follow-up as OP and uptitrate as needed, LDL goal <70
# Stage II pressure injury on sacrum; present on admission
DVT prophylaxis: SCDs
Diet: low fat, sodium restricted, diabetic
CODE STATUS: Full code
Disposition: Home care when medically stable
Anticipated Discharge: > 48 hours
Subjective/Interval History
-
Date of Service: December 31, 2024
Afebrile. Bright red blood per rectum today in the morning. Patient denies any trouble breathing or abdominal pain
Objective Data
-
Labs:
Laboratory Results
12/31/24
07:25
WBC Pending
Hgb Pending
Hct Pending
Plt Count Pending
Sodium Pending
Potassium Pending
Chloride Pending
Carbon Dioxide Pending
BUN Pending
Creatinine Pending
Glucose Pending
Calcium Pending
Vital Signs:
Vital Signs
Temp Pulse Resp BP Pulse Ox
98 F 82 18 102/42 93
12/31/24 03:55 12/31/24 07:13 12/31/24 07:13 12/31/24 03:55 12/31/24 07:13
I&O
12/30/24 12/31/24 01/01/25
06:59 06:59 06:59
Intake Total 1620 / 1620 960 / 960
Output Total 1979 805 / 805
Balance -360 / -360 155 / 155
Review of Systems
-
History Source: Patient
All other systems: Reviewed and negative
Physical Exam
-
General: Appears Chronically Ill
HEENT: Moist Mucous Membranes
Respiratory: Non Labored Respirations; Negative Crackles or Accessory Resp Muscle Use
Cardiac: Regular Rhythm, S1/S2 and Other (1+ LE edema); Negative Murmur, Rub, JVD or Gallop
GI: Soft, Nontender, Nondistended and Normal Bowel Sounds
Rectal: Other (2 episodes of blood clots from rectum)
Musculoskeletal: Other (Right lower extremity swelling)
Skin: Warm; Negative Rash
Neuro: AO x 3, Nonfocal/Grossly Intact and Central Nerve's Intact; Negative Tremors
Psych: Calm
Data Reviewed
-
Ultrasound: Report Reviewed by me
Labs: Labs Reviewed by me, Discussed with Physician and Discussed with Patient
[2024-12-31] MEDS: DUPHALAC/CHRONULAC 10 GRAMS PO (07:47)
[2024-12-31] MEDS: XIFAXAN 550 MG PO (07:48)
[2024-12-31] MEDS: MUCINEX 600 MG PO (07:48)
[2024-12-31] MEDS: ELIQUIS 5 MG PO (07:48)
[2024-12-31] MEDS: VITAMIN C 500 MG PO (07:48)
[2024-12-31] MEDS: LASIX 80 MG IV (07:49)
--- NOTE | 2024-12-31 08:08 | W.PN.CD ---
Today's Communication / Plan
-
BRBPR returned
Cont diuresis consider metolazone this afternoon
Impression / Plan
-
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 Damon at [facility]) with VT now off of amiodarone, MDT BiV ICD, heart block, pacer dependent, CAD s/p CABG, HFrEF, HTN, HLD, PAD, DM, cirrhosis of liver and prostate cancer, who presented to the ER
with weakness and recurrent BRBPR. Cardiology consulted for concern for acute on chronic HFrEF.
Director Hedis: Nelson ([facility])
HFrEF/ICM - EF 35%. acute on chronic => now compensated, 94.5-95 kg likely a good weight
- Weight is lowest on record here. suspect he has protein-calorie malnutrition from HFrEF and cirrhosis
- GDMT limited by CKD/MARIA DOLORES and baseline hypotension. On Midodrine as above
- Give IV Lasix 80mg x1
- MDT ICD check shows optivol was up but is now down suggesting heart failure is now compensated
- Not on much GDMT, add as able limited by hypotension
- weight is lowest its been, however still appears to have hypervolemic hyponatremia
MARIA DOLORES on CKD
- Cr 1.1 in 03/2021
- Next Cr we have is form , Cr now 2.2ish
- Renal involved
Anasarca
- Protein/albumin are low.
- Increase protein intake
- Leg compression
- His edema is at baseline
- MDT ICD check shows optivol was up but is now down suggesting heart failure is now compensated
Lower BP
- On midodrine
Rectal bleeding, Received 1 unit PRBC 12/26/2024 and angiectasias in the rectum treated by GI, GI has signed off
Known prior VT and VF treated by his MDT BiV ICD, last ICD gen change 2020
- No recent VT/VF by device check 12/28/2024, but recently off Amiodarone
- MDT ICD in place, no recent discharges. Device interrogation 12/28 with no recurrent VT or NSVT
Complete heart block, pacer dependent, biv device in place
CAD - s/p CABG, stable w/o angina,continue ASA
Cirrhosis w/ Hx of hepatic encephalopathy
Subjective: rectal bleeding has reoccurred; he is feeling frustrated
Data:
- TTE 11/12/2024: LVEF 35%, inferior and anteroseptal hypokinesis, normal RV, mild AAS, mild/mod TR, PASP 33 mmHg
Physical Exam
Vital Signs/Labs
Vital Signs
Temp Pulse Resp BP Pulse Ox
97.5 F 83 18 102/56 93
12/31/24 07:47 12/31/24 07:48 12/31/24 07:47 12/31/24 07:48 12/31/24 07:47
12/30/24 12/31/24 01/01/25
06:59 06:59 06:59
Actual Weight 208 lb 9.6 oz 209 lb
PT 16.9 Sec (11.4-14.6) H 12/26/24 10:57
INR 1.34 12/26/24 10:57
Magnesium 2.4 mg/dl (1.6-2.3) H 12/29/24 04:59
12/26/24
11:15
Jra-D-Kcjcvsxpytk Pept 3170
Physical Exam
Constitutional: No acute distress and Comfortable
EENT: Anicteric
Cardiovascular: Rhythm & rate is regular (paced) and Pedal edema present
Respiratory: Respiratory effort normal and Lungs clear to auscul.
GI: Soft
Neuro/Psych: AO x 3
Data Reviewed
-
Date of Service: December 31, 2024
EKG: Tracing Personally Visualized and interpreted (paced)
Echo: Report Reviewed by me
Labs: Labs Reviewed by me
[2024-12-31 08:10] LABS: Blood Urea Nitrogen 88 mg/dl (9-20); Calcium 7.9 mg/dl (8.4-10.2); Carbon Dioxide 29 mmol/L (22-30); Chloride 93 mmol/L (98-107); Estimated Creatinine Clearance 27 ml/min; Glucose 130 mg/dl (70-99); Potassium 3.3 mmol/L (3.5-5.1); Sodium 127 mmol/L (135-145); eGFR 27.28
[2024-12-31 08:23] LABS: Hematocrit 24.1 % (39.0-52.0); Hemoglobin 7.9 g/dL (13.0-18.0); Mean Corp Hgb Conc. 32.8 g/dL (33.0-37.0); Mean Corpuscular Volume 103.0 fL (80.0-94.0); Platelet Count 60 10^3/uL (130-400); Red Cell Dist. Width 19.1 % (11.5-14.5)
[2024-12-31 08:29] LABS: Glucose - Point of Care 173 mg/dl (70-99)
--- NOTE | 2024-12-31 09:00 | PTCARENOTE ---
Patient noted this AM with large amounts of gelatinous, dark red blood from rectum. GI and Hospitalist notified at time of discovery. MD and GI at bedside this shift. Eliquis held for now. Dose given this AM before discovery of bleeding - MD aware.
All further doses to be held. Patient to be on bed rest. Pt reports dizziness upon sitting up. made aware of patient's condition - all questions answered. Plan of care ongoing.
--- NOTE | 2024-12-31 09:37 | W.PN.GI.CBS2 ---
Addendum entered and electronically signed by Jonh Sharp MD 12/31/24 12:54:
Patient seen and examined, agree with nurse practitioner note. The patient is a 74-year-old male with extensive medical history as noted including CHF, cirrhosis, with pleural effusions and ascites requiring thoracentesis and paracentesis, now with
bright red blood again per rectum. He had flex sig with APC of radiation proctitis and had been doing well with brown stools until this morning when he had clot with red blood. He had 2 smaller episodes throughout the day. Does have some
lightheadedness when standing though otherwise feels okay and denies any nausea or abdominal pain. He was recently on Eliquis for DVT, last dose this morning. On exam he has ventral hernia though no significant abdominal tenderness. His BUN and
creatinine and hemoglobin have been relatively stable over the past couple of days.
1. Rectal bleeding: Likely secondary to recently treated radiation proctitis, in the setting of Eliquis. Other etiologies of bleeding including upper GI source such as varices, diverticula etc. seem less likely again given recent proctitis
bleeding and treatment. He remains hemodynamically stable. At this point Eliquis has been DC'd. Would continue to trend for now, transfuse if needed. If brisk active bleeding or hemodynamic change then Kcentra though we will hold on this for
now. Will restart Canasa suppositories. Appreciate IR input, likely less benefit of IVC filter for now.
2. Cirrhosis: Decompensated with ascites, pleural effusions, thrombocytopenia, hepatic encephalopathy. Will continue diuretics, lactulose and Xifaxan.
Original Note:
Today's Communication / Plan
-
Likely rebleeding from radiation proctitis with recently added Eliquis 12/30
underwent flexible sigmoidoscopy on 12/27/[address] Vargas where he treated angioectasias in the rectum unsedated
plan for IVC filter today
Received 1 unit PRBC 12/26/2024
trend Hgb will repeat at 1400
if bleeding continued consider repeat flex-- was done unsedated
OP follows with dr. Butt from hepatology care
reviewed with tiger text with primary team and discussed with RN
Assessment / Plan
-
Summary: 74yo male with multiple recent admissions to for rectal bleeding, HE/change in MS, PNA, cirrhosis, CHF, had multiple thoracentesis, paracentesis, now returns with BRB with brown stool similar to bleeding during prior admission. Treated
with flex sig/APC of radiation proctitis. He has seen Dr Butt for his liver disease and GI care. Colonoscopy was deferred in the past due to his DAPT and comorbidities and virtual colon was done instead about a year ago. Plavix has been stopped
and currently on ASA 81mg. s/p flex 12.27 with Multiple bleeding colonic angioectasias. Treated with argon. Pt was doing well from bleeding standpoint with brown stools but started on Eliquis 12/30 for DVT and on 12/31 noted with large amount
for bright red blood per rectum.
12/27/24 flex sig - Preparation of the colon was fair.
- Multiple bleeding colonic angioectasias. Treated with argon
plasma coagulation (APC).
- No specimens collected.
Laboratory Tests
12/28/24 12/29/24 12/30/24
05:13 04:59 07:36
Hgb 8.6 L 8.1 L 8.3 L
12/31/24
07:25
Hgb 7.9 L
Impression:
Rectal bleeding
Radiation proctitis, hx prostate ca/XRT
new DVT with start of Eliquis 12/30
Cirrhosis
ascites with periodic paracentesis
thrombocytopenia
CHF
Ascites
HE
Recommendations:
Likely rebleeding from radiation proctitis with recently added Eliquis 12/30
underwent flexible sigmoidoscopy on 12/27/[address] Vargas where he treated angioectasias in the rectum unsedated
plan for IVC filter today
Received 1 unit PRBC 12/26/2024
trend Hgb will repeat at 1400
if bleeding continued consider repeat flex-- was done unsedated
OP follows with dr. Butt from hepatology care
reviewed with tiger text with primary team and discussed with RN
Subjective
Subjective
Date of Service: December 31, 2024
noted with increased bleeding this am after Eliquis given with one large stool then some small stools with blood, remains on diet
Objective
Data Reviewed
Laboratory Data:
Laboratory Results
12/31/24 07:25
12/31/24 07:25
Laboratory Results
PT 16.9 Sec (11.4-14.6) H 12/26/24 10:57
INR 1.34 12/26/24 10:57
Magnesium 2.4 mg/dl (1.6-2.3) H 12/29/24 04:59
Total Bilirubin 3.3 mg/dl (0.2-1.3) H 12/29/24 04:59
AST 175 U/L (17-59) H 12/29/24 04:59
ALT 141 U/L (0-50) H 12/29/24 04:59
Alkaline Phosphatase 172 U/L (38-126) H 12/29/24 04:59
Vital Signs and I&O:
Vital Signs
Temp Pulse Resp BP Pulse Ox
97.5 F 83 18 102/56 93
12/31/24 07:47 12/31/24 07:48 12/31/24 07:47 12/31/24 07:48 12/31/24 07:47
I&O
12/30/24 12/31/24 01/01/25
06:59 06:59 06:59
Intake Total 1620 / 1620 960 / 960
Output Total 1979 805 / 805
Balance -360 / -360 155 / 155
Physical Exam
Physical Exam
HEENT: Other (jaundice )
Cardiology: Normal Sinus Rhythm
Pulmonary: Clear
GI: Soft, Distended and Non Tender
Extremities: Edema
Neuro: Non Focal
[2024-12-31] MEDS: NOVOLOG FLEXPEN 5 UNITS SC ×3 (09:42→17:45)
[2024-12-31] MEDS: KCL 40 MEQ PO ×2 (09:43→14:31)
--- NOTE | 2024-12-31 10:55 | W.PN.UPDATE ---
Update Note
Progress Note Update
Received consult for IVC filter. I would hold off for now. Below the knee DVT is less likely to embolize - can get repeat US after a few days to make sure dvt is not progressing. Also the patient has positive blood cultures from yesterday, would
prefer to avoid placing intravascular foreign body in the setting of bacteremia.
[2024-12-31] MEDS: STERILE WATER FOR INJECTION 10 ML IV (12:15)
[2024-12-31] MEDS: MAXIPIME 1000 MG IV (12:15)
[2024-12-31 12:18] LABS: Glucose - Point of Care 168 mg/dl (70-99)
--- NOTE | 2024-12-31 12:45 | CM ---
Patient seen at bedside with
current with [facility]
PLAN: home with [facility] when stable
[2024-12-31 13:24] LABS: Urine Character Clear (Clear)
--- NOTE | 2024-12-31 13:53 | W.PN.NEPH.PH ---
Today's Communication / Plan
-
diurese
Assessment/Plan
-
Assessment
MARIA DOLORES (B/L cr 1.9 )
hyponatremia
Anemia
Hypokalemia
pancytopenia
HFrEF 35% with Moderate TR
GI bleed
cirrhosis
left pleural effusion
mild ascites
Plan
continue lasix
given stalled weights, low dose metolazone today
follow BMP
replete K
follow hgb
d/w pt and at bedside
-
-
Date of Service: December 31, 2024
CC / HPI / ROS
-
Chief Complaint:
MARIA DOLORES
History of Present Illness:
BP soft on midodrine
Hgb lower 7.9
MARIA DOLORES/Cr stable 2.4
sodium up at 127
K low 3.3
Review of Systems:
no CP/SOB at rest
Labs
-
Labs:
Sodium 127 mmol/L (135-145) L 12/31/24 07:25
Potassium 3.3 mmol/L (3.5-5.1) L 12/31/24 07:25
Chloride 93 mmol/L (98-107) L 12/31/24 07:25
Carbon Dioxide 29 mmol/L (22-30) 12/31/24 07:25
BUN 88 mg/dl (9-20) H 12/31/24 07:25
Creatinine 2.4 mg/dL (0.7-1.3) H 12/31/24 07:25
eGFR 27.28 12/31/24 07:25
Glucose 130 mg/dl (70-99) H 12/31/24 07:25
Calcium 7.9 mg/dl (8.4-10.2) L 12/31/24 07:25
Bez-L-Uxyllvwtwps Pept 3170 pg/ml 12/26/24 11:15
Albumin 2.3 g/dl (3.5-5.0) L 12/29/24 04:59
Physical Exam
-
Vital Signs:
Vital Signs
Temp Pulse Resp BP Pulse Ox
97.2 F 81 16 95/48 93
12/31/24 12:06 12/31/24 12:15 12/31/24 12:06 12/31/24 12:15 12/31/24 13:17
Cardiovascular:: Regular rate and rhythm
Respiratory:: Bilateral: Coarse
Lung Excursion:: Normal
Abdomen:: Nontender and Soft
Bowel Sounds:: Normal
Extremity Edema:: +3: Bilateral:
[2024-12-31 14:23] LABS: Urine Red Blood Cell 0-2 /HPF (0-2)
[2024-12-31] MEDS: ZAROXOLYN 1.25 MG PO (14:29)
[2024-12-31 14:35] LABS: Hematocrit 23.1 % (39.0-52.0); Hemoglobin 7.4 g/dL (13.0-18.0); Mean Corp Hgb Conc. 32.0 g/dL (33.0-37.0); Mean Corpuscular Volume 99.6 fL (80.0-94.0); Platelet Count 77 10^3/uL (130-400); Red Cell Dist. Width 19.3 % (11.5-14.5)
--- NOTE | 2024-12-31 14:51 | CON.ID ---
Consultation
-
Date/Time Consultation Requested: 12/31/2024 1313
Date/Time Consultation Performed: 12/31/2024 1450
Requesting Provider: Dr. Boyer
Performing Provider: Dr. Aviles
Reason for Consultation: Bacteremia
Chief Complaint / Past History
History of Present Illness
Jonh Rodriguez is a 74-year-old man being evaluated at the request of Dr. Boyer regarding recovery of Pseudomonas in blood cultures. History is obtained from chart review, along with patient interview.
The patient is known to the Infectious Diseases service, having been seen in mid November for Pseudomonas recovered and a sputum culture. During that admission the patient also was treated for GI bleed and underwent sigmoidoscopy and cauterization.
He presents back to the emergency room. [facility] on 12/26 for evaluation of rectal bleeding which started the evening prior. He was found to have anemia and received a transfusion. On 12/27, the patient was found to be hypotensive and
was started on Levophed. Blood cultures were ordered and a set was obtained. A later blood culture set was obtained on 12/30, which is now found to be positive for Pseudomonas and Infectious Diseases is asked to comment upon further antimicrobial
management. Hospital course has been complicated by the finding of DVT for which he received anticoagulation (Eliquis) but hematochezia has restarted and he has been evaluated for IVC filter placement.
Patient denies any fevers or chills. He does admit to a chronic cough which is ongoing for several months. He denies any pain at present. He admits to some loose stool.
Past History
Additional Past Medical History:
DM
HLD
HTN
CAD; Hx PR
PAD
Hx prostate CA
V. tach
CHF with depressed EF
COPD
Additional Past Surgical History:
CABG
ICD placement
bilateral iliac artery stents (2019)
Allergy History:
erythromycin base (Erythromycin Base) Allergy (Verified 12/21/24 10:46)
contraindicated (see comment)
Medications Reviewed: Yes
Current Antibiotics:
Cefepime 1 gm IV q.12 hours
Xifaxan
Social History
Tobacco: Former Smoker
Alcohol: Former
Drug: None
Personal:
Living: With Family
Employment: Retired
Review of Systems
Vital Signs
Temp Pulse Resp BP Pulse Ox
97.2 F 82 18 112/49 92
12/31/24 14:28 12/31/24 14:29 12/31/24 14:28 12/31/24 14:29 12/31/24 14:28
Physical Exam
Physical Exam
Constitutional: No Acute Distress, Comfortable, Chronically Ill and Non-toxic
Eyes: No Conjunctival Hemorrhage and Sclera Anicteric
Oral: No Thrush and No Ulcers
Cardiovascular: Regular Rate and S1/S2; Negative S3/S4 or Murmur
Pulmonary: Clear; Negative Wheezes, Rales or Rhonchi
Gastrointestinal: Soft, Non Tender, Non Distended and Normal Bowel Sounds
Extremities: Edema; Negative Cyanosis or Erythema
Skin: Warm and Dry; Negative Rash or Jaundice
Neurological: Awake and Alert
Psychological: Calm
Lab / Diagnostic Study Results
12/31/24 14:15
12/31/24 07:25
Abs Immat Gran (auto) 0.1 10^3/uL (0-0.05) H 12/29/24 04:59
Absolute Neuts (auto) 6.5 10^3/uL (1.4-6.5) 12/29/24 04:59
Absolute Lymphs (auto) 0.4 10^3/uL (1.2-3.4) L 12/29/24 04:59
Absolute Monos (auto) 1.0 10^3/uL (0.1-0.6) H 12/29/24 04:59
Absolute Basos (auto) 0.0 10^3/uL (0-0.2) 12/29/24 04:59
Immature Gran % 1.2 % (0-0.5) H 12/29/24 04:59
Neutrophils % 80.5 % (42.2-75.2) H 12/29/24 04:59
Lymphocytes % 5.5 % (20.5-51.1) L 12/29/24 04:59
Monocytes % 12.0 % (1.7-9.3) H 12/29/24 04:59
Eosinophils % 0.7 % (0-6) 12/29/24 04:59
Basophils % 0.1 % (0-2) 12/29/24 04:59
PT 16.9 Sec (11.4-14.6) H 12/26/24 10:57
INR 1.34 12/26/24 10:57
Ur Squamous Epith Cells 3-5 /LPF (Few) 12/31/24 13:15
Microbiology Results
Micro:
12/28/24 12:27 Blood Culture - Preliminary
Blood/Venous No Growth in 72 hours- Final report to follow
12/30/24 07:36 Blood Culture - Preliminary
Blood/Venous Pseudomonas aeruginosa
Gram Stain - Preliminary
Imaging:
12/30/2024 Duplex ultrasound lower extremity: there is an occlusive thrombus within the right gastrocnemius vein in the calf. There is spontaneous phasic flow with compressibility in the right common femoral, femoral and popliteal veins.
Assessment / Plan
Pseudomonas bacteremia of unclear source
DVT
GI bleed
DM
HLD
HTN
CAD; Hx PR
PAD
Hx prostate CA
V. tach
CHF with depressed EF
COPD
Recommendations:
Agree with initiation of cefepime. Dose has been adjusted for renal insufficiency (current CrCl = 27)
Repeat blood cultures today.
Would hold if possible on placement of IVC filter for now until blood cultures are negative x 48 hours.
Follow white count and temperature curve.
[2024-12-31 16:01] LABS: Glucose - Point of Care 195 mg/dl (70-99)
[2024-12-31] MEDS: TIGAN 200 MG IM (17:09)
[2024-12-31] MEDS: LASIX IV (17:26)
[2024-12-31] MEDS: LIPITOR PO (17:31)
[2024-12-31] MEDS: THERAGRAN PO (17:32)
--- NOTE | 2024-12-31 17:32 | PTCARENOTE ---
Pt reporting stomach pain and nausea. Dry heaving noted - no vomit. GI and Hospitalist notified. New orders for Tigan and Dilaudid. Pt refused Dilaudid at this time when offered. Accepted Tigan with relief. Multiple bloody, gelatinous clots remain
coming from rectum about 5-8 times this shift. Patient drowsy but arousable. VSS. Blood infusing at this time. Plan of care ongoing.
[2024-12-31 18:10] LABS: Glucose - Point of Care 176 mg/dl (70-99)
--- NOTE | 2024-12-31 18:33 | W.PN.UPDATE ---
Addendum entered and electronically signed by Alexey Jackson MD 12/31/24 19:18:
added ppi gtt and octreotide with H/O Cirrhosis
Pt already on AB
Original Note:
Update Note
Progress Note Update
Responded to rapid response call
74-year-old with multiple admissions to [facility] for rectal bleeding, hepatic encephalopathy, cirrhosis multiple episodes of paracentesis admitted with bleeding per rectum. Flexible sigmoidoscopy showed radiation proctitis. Patient was
started on Eliquis on 12/30/2024 for DVT and noted to have large amount of bleeding per rectum on 12/31/2024. Plan was for IVC filter however IR note recommends to hold off on IVC filter and repeat ultrasound. He has positive blood cultures and
below knee with less likely to embolize.
Rapid response was called as patient had more bloody bowel movements and he became somewhat less responsive
On examination patient slightly drowsy arousable states his name
Denies any chest pain or abdominal pain
Cardiovascular system S1-S2 appreciated
Chest clear to auscultation decreased breath sounds at bases
Abdominal soft and nontender no guarding or rigidity
Bilateral lower extremity edema noted
Pupils are equal and reactive no facial droop, moving all extremities
Patient will be transferred to ICU
Midline line order placed for fluid as well as additional blood products
Eliquis has been discontinued this morning
Head CT ordered since patient was on anticoagulation
CTA A/P-nephrology already on board
Patient is on cefepime for positive blood cultures
Hold aspirin tonight
Will order CTA abdomen and pelvis-discussed about contrast-induced nephropathy with patient's -ordered bicarb prophylaxis
I have also placed an order for a unit of FFP's
Blood pressure is holding now in 120s. If blood pressure drops may need IV fluids. Hold off on IV fluids for now and transfuse blood because of hyponatremia
Large pleural effusion noted-May need thoracentesis
Hold Lasix with active bleeding.
Unfortunately prognosis is not good with multiple medical problems
Discussed with the . Guarded prognosis explained to her given positive blood cultures, cirrhosis, kidney disease, CHF, pleural effusion, bleeding, DVT, . CODE STATUS readdressed. She thinks the quality of his life was okay before all this and
wanted him to be a full code.
D/W ICU GRADE SETTER
D/W ICU Staff and IV team
D/w GI air cargo ground operations supervisor, Nephrology air cargo ground operations supervisor and IRAD air cargo ground operations supervisor
Total critical care time spent 45 minutes
--- NOTE | 2024-12-31 19:23 | RR ---
A Rapid Response was called on this patient, please see Rapid Response form.
Patient noted around 1830 tonight to have had a gradual change in mental status throughout the day. At this time he was noted to be drowsy, closing his eyes, saying odd phrases and attempting to get out of bed. at bedside verbalized feelings of
worry. Patient VSS. BGL 176. Unit of blood hung about 1 hour prior for hgb 7.4 and GI bleed from rectum. A rapid response was called, cross coverage, IV team and MD at bedside. Pt remains barely responsive but able to answer all orientation
questions. He was then transferred to ICU. Report called to Jesus in ICU. All questions answered. Plan of care ongoing.
[2024-12-31 19:59] LABS: Hematocrit 24.8 % (39.0-52.0); Hemoglobin 7.9 g/dL (13.0-18.0); Mean Corp Hgb Conc. 31.9 g/dL (33.0-37.0); Mean Corpuscular Volume 96.5 fL (80.0-94.0); Nucleated Red Blood Cells % 0.2 % (-); Platelet Count 94 10^3/uL (130-400); Red Cell Dist. Width 24.2 % (11.5-14.5)
[2024-12-31] MEDS: PROTONIX 100 IV (20:04)
[2024-12-31 20:08] LABS: APTT 39.4 Sec (23.4-35.0); Fibrinogen 264 MG/DL (199-459)
[2024-12-31 20:12] LABS: ALT (SGPT) 100 U/L (0-50); AST (SGOT) 125 U/L (17-59); Albumin 2.2 g/dl (3.5-5.0); Alkaline Phosphatase 137 U/L (38-126); Blood Urea Nitrogen 95 mg/dl (9-20); Calcium 7.8 mg/dl (8.4-10.2); Carbon Dioxide 27 mmol/L (22-30); Chloride 94 mmol/L (98-107); Estimated Creatinine Clearance 27 ml/min; Glucose 131 mg/dl (70-99); Potassium 4.3 mmol/L (3.5-5.1); Sodium 129 mmol/L (135-145); Total Protein 5.0 g/dl (6.3-8.2); eGFR 27.28
[2024-12-31] MEDS: ADVAIR HFA 230/21 MCG INHALER INH (20:12)
[2024-12-31 20:20] LABS: INR 2.52; PT 27.2 Sec (11.4-14.6)
[2024-12-31 20:22] LABS: Anisocytosis 2+; Hypochromasia 1+; Normal RBC Morphology No; Polychromasia 1+
--- NOTE | 2024-12-31 20:30 | PTCARENOTE ---
assumed care, pt disoriented to time and place, drowsy and restless, MCDONNELL but not following commands, PERRLA 4, Vpaced on the monitor, +2 LE's, +3 LUE, doppler pedals, Lungs coarse c crackles @ the bases, 96% 2L, BSx4 hyperactive, abd full and
distended, incontinent, constant bleeding from rectum, pt due to void, wounds refer to worklist, IV tram @ bedside and placed a midline, labs drawn and sent, 20G R arm, Protonix gtt and octreotide hung, CT was verified by radiologist and
given pt Cr, taken to CT and arrived back to the unit safely, unit of PRBC finished refer to TAR, @ bedside and updated, bedalarm applied, safe environment maintained, otherwise refer to documentation
--- NOTE | 2024-12-31 20:43 | VATNOTE ---
PICC order changed to Midline due to + blood cultures per Hospitalist instructions. Midline placed.
[2024-12-31] MEDS: SANDOSTATIN 250 MCG IV (21:09)
[2024-12-31] MEDS: DUPHALAC/CHRONULAC PO (21:14)
[2024-12-31] MEDS: XIFAXAN PO (21:14)
[2024-12-31] MEDS: ROWASA, CANASA SUPPOSITORY RECTAL (21:16)
[2024-12-31 21:24] LABS: Venous Blood Gas B.E. 4.2 mmol/L (-4 to +4); Venous Blood Gas O2 Sat % 96.9 %
[2024-12-31 21:34] LABS: Glucose - Point of Care 145 mg/dl (70-99)
[2024-12-31 21:43] LABS: Ammonia 200 umol/L (9-30)
[2024-12-31] MEDS: LACTULOSE ENEMA 300 ML RECTAL (22:59)
[2025-01-01] VITALS (24 sets, daily range): BP systolic 80–116; BP diastolic 34–69; BMI 29.3
--- NOTE | 2025-01-01 00:12 | PTCARENOTE ---
systems reviewed, given pt neuro status VBG and ammonia level ordered, ANALYTICAL CLERK ordered lactulose enema, given Ok by ANALYTICAL CLERK to apply RT while giving enema, pt tolerated the tawny but not sure how much was able to be retained, unit of FFP given refer to TAR,
multiple linen changes, no change from previous GI assessment, otherwise refer to documentation.
[2025-01-01] MEDS: STERILE WATER FOR INJECTION 10 ML IV ×2 (00:19→11:31)
[2025-01-01] MEDS: MAXIPIME 1000 MG IV ×2 (00:20→11:31)
--- NOTE | 2025-01-01 02:37 | W.PN.ANESINT ---
Anesthesia Intubation Note
- Intubation Note
Intubation Note:
Diagnosis: acute respiratory failure
Blade: mac 4
Tube Size: 8.0
Depth: 23
Side Taped: right
Drugs Used: propofol 50mg, succ 100mg, phenylephrine 100mcg
Grade View: 1
EtCO2 Present: yes
Atraumatic: yes
Attempts: 1
Start and Stop Time: 9112-5473
SaO2 Pre: 98
SaO2 Post: 99
Glidescope Used: yes
Other Airway Adjustments: elevate HOB 15 degrees, sniffing
Pre-Oxygenated: yes
Portable Chest X-Ray: pending
RSI:yes
Suctioned: no
Bilateral Breath Sounds Confirmed: yes
Vent Settings:
Settings per Attending Physician
--- NOTE | 2025-01-01 02:50 | W.PN.UPDATE ---
Update Note
Progress Note Update
Patient arrived�to�the ICU,�lethargic�(follows commands,�alert to his name,�confused) =�Workup in ICU�revealed elevated�ammonia (200).�Patient unsafe to take�lactose PO,�gave�by enema. Head CT negative.�Neuro status�declined�overnight.�Patients
need�to be intubated for airway protection.� at bedside�and was�agreeable.�
[2025-01-01] MEDS: SUBLIMAZE 50 MCG IV ×5 (02:59→22:37)
--- NOTE | 2025-01-01 03:26 | PTCARENOTE ---
systems reviewed, pt obtunded, WD to pain but not opening eyes or responding, TERRITORY OUTSIDE SALES MANAGER notified and @ bedside spoke with and she gave the ok to proceed with intubation, pt intubated #8 ETT 24@ lip, AC 16/500/5/50%, sats 97%, think tannish secretions
from ETT, OGT placed 65cm @ lip c bloody secretions, TERRITORY OUTSIDE SALES MANAGER placed R rad a-line, thermistor mcmahon placed, temp was 94.4F ti hugger applied per order, B/L wrist restraints applied, updated and emotional support provided, otherwise refer to
documentation.
--- NOTE | 2025-01-01 03:49 | W.PN.UPDATE ---
Update Note
Progress Note Update
Procedure Note: Arterial Line�
� Right Wrist Arrow 20 (05/04)�
Diagnosis:�Hepatic encephalopathy and GI bleeding
IV Line Comments: Uneventful Procedure�
Tito completed pre-procedure: Yes�
A-Line Comments: Sterile technique as per standard protocol, Ultrasound guided insertion�
Functioning�A-line in situ: Yes�
A-line Insertion Start Time:��0320
A-line in at:��0325
[2025-01-01] MEDS: LEVOPHED 250 IV ×3 (03:54→19:27)
[2025-01-01 04:32] LABS: B.E. 0.4 mmol/L; HCO3 23.8 mmol/L (21-28); O2 Saturation % 99.5 % (94-98); PCO2 32 mmHg (35-48); PO2 164 mmHg (83-108); Potassium 4.4 mMOL/L (3.5-5.1); Sodium 131 mMOL/L (136-145)
[2025-01-01 04:41] LABS: Hematocrit 22.5 % (39.0-52.0); Hemoglobin 7.2 g/dL (13.0-18.0); Mean Corp Hgb Conc. 32.0 g/dL (33.0-37.0); Mean Corpuscular Volume 95.7 fL (80.0-94.0); Platelet Count 94 10^3/uL (130-400); Red Cell Dist. Width 25.3 % (11.5-14.5)
[2025-01-01 04:59] LABS: ALT (SGPT) 103 U/L (0-50); AST (SGOT) 129 U/L (17-59); Albumin 2.3 g/dl (3.5-5.0); Alkaline Phosphatase 127 U/L (38-126); Ammonia 196 umol/L (9-30); Blood Urea Nitrogen 97 mg/dl (9-20); Calcium 8.0 mg/dl (8.4-10.2); Carbon Dioxide 26 mmol/L (22-30); Chloride 95 mmol/L (98-107); Estimated Creatinine Clearance 26 ml/min; Glucose 164 mg/dl (70-99); Potassium 4.6 mmol/L (3.5-5.1); Sodium 129 mmol/L (135-145); Total Protein 5.1 g/dl (6.3-8.2); eGFR 25.98
[2025-01-01] MEDS: PROTONIX 100 IV (04:59)
[2025-01-01] MEDS: DUPHALAC/CHRONULAC 20 GRAMS PO ×4 (04:59→22:38)
[2025-01-01] MEDS: SANDOSTATIN 250 MCG IV (05:00)
[2025-01-01] MEDS: CALCIUM GLUCONATE 130 MG IV (05:31)
--- NOTE | 2025-01-01 05:59 | PTCARENOTE ---
1 unit of PRBC transfused, lactulose given per order through OGT, pt continues to have constant rectal bleeding, Ca repleted, otherwise refer to documentation
[2025-01-01 06:32] LABS: Glucose - Point of Care 205 mg/dl (70-99)
--- NOTE | 2025-01-01 07:06 | CON.INTV ---
Addendum entered and electronically signed by Jarocho Veras MD 01/01/25 09:40:
Also note that patient has had left thoracentesis in the past multiple times, transudate
Patient also with aspiration syndrome, abnormal swallowing evaluation in the past
Will follow for now
Original Note:
Consultation
Consultation Request
Date/Time Consultation Requested: 01/01
Date/Time Consultation Performed: 01/01
Reason for Consultation: Critical care
Medical History
-
History of Present Illness:
History obtained from the chart, and patient outpatient records and so history from the at the bedside. Patient is intubated and sedated and unable to provide history. 74-year-old male with history of hepatic encephalopathy, recurrent left
pleural effusion with frequent thoracentesis, paracentesis, history of thrombophlebitis, severe obstructive lung disease FEV1 33%. Patient was admitted on 12/26/2024 with recurrent bleeding of the rectum. Of note he has had multiple admissions
over the past few months for confusion/encephalopathy and rectal bleeding. Hospital stay was reviewed. History of radiation proctitis noted, suspected source of rebleeding. Patient had flex sigmoidoscopy with cautery. Also was transfuse 1 unit.
Upper GI bleed was not suspected. Patient was also seen by cardiology. Aspirin was held in the setting of rectal bleeding. Nephrology was also consulted for acute renal injury, creatinine baseline 1.9. Lasix was held. Midodrine was started.
Lower extremity edema had improved. Diuresis was resumed. Patient developed right lower extremity DVT and upper extremity superficial clot. Eliquis was started on 12/30/2024. IVC filter was considered but patient had bacteremia and this was not
pursued. ID was consulted for Pseudomonas bacteremia. Cefepime was started. Rapid response was called 12/31 for bloody bowel movements and increased mental status changes, worsening encephalopathy. Ammonia was noted to be elevated in the 200.
Patient transferred to ICU. Subsequently intubated for worsening mental status. We are now asked to help from critical care standpoint 01/01/2025.
Lactulose was administered via OG tube. No bloody return noted per OG tube.
.
PMH: Coronary disease with history of bypass surgery, ischemic cardiomyopathy EF 35% with history of ventricular tachycardia ICD 2007, peripheral arterial disease with left femoral endarterectomy and stent, hypertension, hyperlipidemia, diabetes,
prostate cancer, anemia, liver disease with cirrhosis
Past Medical History
Past Medical History: None (See above)
Past Surgical History: None (See above)
Social History
Tobacco: Former Smoker ([id number], quit 1994)
Alcohol: None
Drug: None
Personal:
Living: With Family
Employment: Retired (Account is not)
Family History
Family History: Other (Father with heart disease, diabetes. Mother with history of cancer. Sister with breast cancer. 2 brothers and 2 sons healthy)
Allergies / Home Medications
Allergies
Allergy/AdvReac Type Severity Reaction Status Date / Time
erythromycin base Allergy contraindicated Verified 12/21/24 10:46
(Erythromycin Base) (see
comment)
Home Medications
�Medication �Instructions �Recorded �Confirmed �Last Taken �Type
ascorbic acid (vitamin C) 500 mg 500 mg PO DAILY Supplement 09/25/18 12/26/24 12/25/24 History
tablet (Vitamin C)
aspirin 81 mg tablet,delayed 81 mg PO HS Blood clot 08/07/20 12/26/24 12/24/24 Rx
release prevention/tx ##0
folic acid 400 mcg tablet 0.4 mg PO HS Supplement ##0 08/07/20 12/26/24 12/25/24 Rx
furosemide 80 mg tablet 80 mg PO BID@0800,1600 30 days #60 11/24/24 12/26/24 12/25/24 Rx
tabs
insulin lispro 100 unit/mL 5 unit (0.05 mL) SC AC with meals 11/24/24 12/26/24 Unknown Rx
subcutaneous pen (Humalog KwikPen 30 days #90 ea
(U-100) Insulin)
rifaximin 550 mg tablet (Xifaxan) 550 mg PO BID 30 days #60 tabs 11/24/24 12/26/24 12/25/24 Rx
guaifenesin 600 mg tablet, 600 mg PO BID Congestion 12/02/24 12/26/24 12/25/24 History
extended release 12 hr (Mucinex)
tiotropium bromide 2.5 2 puff inhalation R DAILY 12/02/24 12/26/24 12/25/24 History
mcg/actuation mist for inhalation Lung/Breathing Issues
(Spiriva Respimat)
albuterol sulfate 90 mcg/actuation 2 puff inhalation R QIDPRN PRN sob 12/26/24 12/26/24 Unknown History
aerosol inhaler
ferrous sulfate 325 mg (65 mg 325 mg PO Q48H Supplement 12/26/24 12/26/24 Unknown History
iron) tablet
fluticasone propionate 230 2 puff inhalation R BID 12/26/24 12/26/24 12/25/24 History
mcg-salmeterol 21 mcg/actuation Lung/Breathing Issues
HFA inhaler (Advair HFA)
lactulose 10 gram/15 mL oral 10 g PO BID Liver Issues 12/26/24 12/26/24 12/25/24 History
solution
metolazone 2.5 mg tablet 2.5 mg PO DAILY Fluid 12/26/24 12/26/24 12/25/24 History
Retention/Swelling
midodrine 5 mg tablet 5 mg PO BID Hypotension 12/26/24 12/26/24 12/25/24 History
therapeutic multivitamin 1 tab PO QPM Supplement 12/26/24 12/26/24 12/25/24 History
Review of Systems
-
Unable to Obtain full review of systems at this time due to: Patient Intubation
All other systems: Negative unless noted
Vitals / Labs / Diagnostic Testing
Vital Signs
Temp Pulse Resp BP Pulse Ox
97.9 F 84 16 104/46 99
01/01/25 05:59 01/01/25 06:00 01/01/25 06:00 01/01/25 05:59 01/01/25 06:00
Lab Data
01/01/25 04:23
Laboratory Results
12/31/24 01/01/25
19:39 04:23
PT 27.2 H
INR 2.52
APTT 39.4 H
pH 7.48 H
pCO2 32 L
pO2 164 H
HCO3 23.8
O2 Delivery Level
Microbiology
12/28/24 12:27 Blood/Venous Blood Culture - Preliminary
No Growth in 72 hours- Final report to follow
12/30/24 07:36 Blood/Venous Blood Culture - Preliminary
Pseudomonas aeruginosa
12/30/24 07:36 Blood/Venous Gram Stain - Preliminary
Diagnostic Testing:
Physical Exam
-
HEENT: Normocephalic, Anicteric and Other (Upper extremity A-line, midline)
Cardiovascular: S1/S2, Regular Rhythm, Murmur (n), Rub (n) and Peripheral Edema (1+)
Respiratory: Wheeze (n), Rales (n), Rhonchi (n), Non-Labored Respirations and Other (ET tube, dyssynchronous with vent)
GI: Soft and Non Distended
Neurology: Other (Sedated)
General: Comfortable
Assessment
-
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
kidney disease baseline creatinine 1.9, history of ischemic cardiomyopathy with bypass surgery EF 35%, admitted 12/26/2024 for rectal bleeding. Hospital course complicated by renal insufficiency, bacteremia, worsening hepatic encephalopathy,
transferred to ICU requiring intubation 01/01/2025
VDRF, intubated for airway protection, mental status changes
01/01/2025
Hepatic encephalopathy, ammonia level 200
Acute lower GI bleed, secondary to radiation proctitis
Requiring transfusion
Left upper extremity swelling with superficial thrombophlebitis
Right lower extremity DVT
Eliquis therapy 12/03/2024, now discontinued
Liver cirrhosis
Ascites, hepatic encephalopathy, thrombocytopenia
Chronic transaminitis
Acute renal insufficiency, baseline creatinine 1.9
Conditions present prior to admission
Hypertension/hyperlipidemia
Ischemic cardiomyopathy, EF 35%
History of VT, ICD
Amiodarone therapy in the past
Coronary disease bypass surgery
Insulin-dependent diabetes
Severe COPD, FEV1 33%
Recurrent left pleural effusion with left lower lobe consolidation/atelectasis
History of prostate cancer with radiation therapy
Peripheral arterial disease status post lower extremity stent/endarterectomy
Plan/recommendations
Patient with extremely complex medical history
Salient features are progressive anemia with worsening rectal bleeding in the setting of anticoagulation for DVT, worsening encephalopathy with mental status changes now requiring intubation
Moving forward
Continue with volume-cycled ventilation. Patient with dyssynchrony with the ventilator at this time.
Will make adjustments
AC 14/500/5/50%
Ppk 28, Pplat 18
ABG 7.48/32/164
Patient with severe COPD at baseline, FEV1 35%
DuoNebs, Pulmicort
Presently chest exam is clear
Chronic left pleuroparenchymal process is noted
Required outpatient thoracenteses
Doubt infectious process but will follow
Check tracheal culture
Marginal blood pressure noted on norepinephrine
Likely multifactorial (circulatory shock, anemia, cardiomyopathy, positive pressure ventilation)
continue norepinephrine, maintain MAP > 65
GI bleed, lower
Reviewed with GI
Continue with supportive care, transfuse, follow hemoglobin
Discontinue Protonix and octreotide. Upper GI bleed is not suspected. No output via the OG tube
Ammonia and hepatic encephalopathy
continue with lactulose
GI following
Cirrhosis with thrombocytopenia, portal hypertension, recurrent hepatic encephalopathy in the past. Recent paracentesis without evidence of SBP
Renal insufficiency noted, creatinine 2.5 chronic kidney disease stage III, baseline 1.9
Nephrology following
Currently receiving bicarbonate postcontrast studies
Ischemic cardiomyopathy, EF 35%
Aspirin being held due to rectal bleed
ICD in place
History of lower extremity DVT on the right and left upper extremity thrombophlebitis
IVC filter was considered but will hold for now
Remains off anticoagulation given bleeding
Blood cultures positive for Pseudomonas 12/30/2024. Blood culture 12/28 normal, 12/31 negative to date
Remains on cefepime
Stage II decubitus ulcer, present at time of admission
Discussed with ID
Okay for PICC line if needed
DVT prophylaxis: Mechanical on the left. rt DVT noted
GI prophylaxis: Protonix
Reviewed with critical care nursing, respiratory care
Reviewed with ID
Updated at length at bedside
Multisystem organ failure
Prognosis poor
Remains full code at this time. Ongoing discussion regarding goals of care
TCCT 76 min
--- NOTE | 2025-01-01 07:09 | W.PN.GI.CBS2 ---
Today's Communication / Plan
-
Please see assessment and plan for details.
Assessment / Plan
-
1. Rectal bleeding: With history of radiation proctitis status post recent APC, then had significant bleeding after starting Eliquis for DVT, likely from ulceration at APC sites in the setting of Eliquis. Other source seems unlikely. CT angiogram
was negative, no bloody output from OG tube making upper source such as peptic ulcer disease or esophageal varices very unlikely. His CT colonography a year ago and other imaging did not show any diverticulosis. Overall, has remained
hemodynamically stable but has required 2 to PRBCs. His last dose of Eliquis was yesterday morning. At this point we will continue supportive care. If he has hemodynamic instability related to bleeding then can give Kcentra though has been
relatively stable for the past 24 hours. Will continue to trend labs including INR and can give further FFP if still elevated, though again has been hemodynamically stable. Endoscopic intervention right now would be ineffective and could
potentially worsen bleeding given still effectively on anticoagulation, though if tomorrow morning still having significant bleeding could repeat flex sig.
2. Cirrhosis: Decompensated with hepatic encephalopathy, ascites and thrombocytopenia, now with worsening hepatic encephalopathy. Will continue lactulose via OG tube and Xifaxan. He has had multiple paracentesis and thoracentesis in the past,
though only mild ascites at most on exam now.
Subjective
Subjective
Date of Service: January 01, 2025
Events noted, discussed with team overnight. Patient had persistent bleeding, ultimately decreased mentation and was intubated for airway protection. CT angiogram did not show any active bleeding in the upper GI source, though colon was obscured
with barium. He has received 2 units of PRBCs and 1 of FFP. He has been hemodynamically stable overnight, low-dose Levophed since intubation. OG tube without any bloody output.
Objective
Data Reviewed
Laboratory Data:
Laboratory Results
01/01/25 04:23
Laboratory Results
PT 27.2 Sec (11.4-14.6) H 12/31/24 19:39
INR 2.52 12/31/24 19:39
APTT 39.4 Sec (23.4-35.0) H 12/31/24 19:39
Magnesium 2.4 mg/dl (1.6-2.3) H 12/29/24 04:59
Total Bilirubin 4.6 mg/dl (0.2-1.3) H 01/01/25 04:23
AST 129 U/L (17-59) H 01/01/25 04:23
ALT 103 U/L (0-50) H 01/01/25 04:23
Alkaline Phosphatase 127 U/L (38-126) H 01/01/25 04:23
Vital Signs and I&O:
Vital Signs
Temp Pulse Resp BP Pulse Ox
97.9 F 84 16 104/46 99
01/01/25 05:59 01/01/25 06:00 01/01/25 06:00 01/01/25 05:59 01/01/25 06:00
I&O
12/31/24 01/01/25 01/02/25
06:59 06:59 05:59
Intake Total 960 / 960 2392.5 / 2440.0 47.5 / 47.5
Output Total 805 / 805 820 / 860 40 / 40
Balance 155 / 155 1572.5 / 1580.0 7.5 / 7.5
Physical Exam
Physical Exam
General: NAD, intubated and sedated
Abdomen: normal bowel sounds, soft, no tenderness, no masses or bruits, no significant ascites
[2025-01-01] MEDS: SPIRIVA RESPIMAT 2.5 MCG INH (07:28)
[2025-01-01] MEDS: ADVAIR HFA 230/21 MCG INHALER 2 PUFF INH (07:28)
[2025-01-01] MEDS: XIFAXAN 550 MG PO ×2 (07:32→19:27)
[2025-01-01] MEDS: PULMICORT 0.5 MG INH ×2 (07:57→19:48)
[2025-01-01] MEDS: DUONEB 3 ML INH ×4 (07:57→19:48)
--- NOTE | 2025-01-01 08:11 | W.PN.ID1 ---
Date of Service
Date of Service: January 01, 2025
Today's Communication
Continue cefepime for today.
Assessment / Plan
Pseudomonas bacteremia of unclear source
- Prior history of Pseudomonas recovered from lungs
- ?GI translocation
DVT
GI bleed
Hepatic encephalopathy
Hyponatremia
Renal insufficiency
DM
HLD
HTN
CAD; Hx FL
PAD
Hx prostate CA
V. tach
CHF with depressed EF
COPD
Recommendations:
Continue with cefepime. Dose has been adjusted for renal insufficiency (current CrCl = 27)
Repeat blood cultures pending.
Would hold (if possible) on placement of IVC filter for now until blood cultures are negative x 48 hours.
Follow white count and temperature curve.
Continue with supportive measures.
Patient critically ill with hypoxemic respiratory failure in ICU
����������������������������������������������������������
Chief Complaint
-: Leukocytosis, Bacteremia and Other (Hepatic encephalopathy)
Subjective / Review of Systems
Patient seen and examined. Chart reviewed. Events overnight noted. Patient with ongoing rectal bleeding and became increasingly encephalopathic. Patient intubated for airway control.
Review of Systems: No Fever
Vital Signs / Physical Exam
Vital Signs
Vital Signs
Temp Pulse Resp BP Pulse Ox
97.9 F 89 18 111/43 98
01/01/25 07:30 01/01/25 07:49 01/01/25 07:49 01/01/25 07:32 01/01/25 07:49
Physical Exam
Constitutional: Acutely Ill, Chronically Ill, Non-toxic and Obese
Head: Other (ET tube in place.)
Eyes: No Conjunctival Hemorrhage and Sclera Anicteric
Cardiovascular: Regular Rate and S1/S2; Negative S3/S4
Pulmonary: Clear; Negative Wheezes or Rales
Gastrointestinal: Soft, Non Tender and Non Distended
Genito-Urinary: Chávez and Clear Urine; Negative Turbid Urine
Extremities: Edema (1+); Negative Cyanosis or Erythema
Neurological: Other (Arousable to touch and voice.)
Psychological: Calm and Confused
Objective Data
Lab Data
Lab Results
01/01/25 04:23
PT 27.2 Sec (11.4-14.6) H 12/31/24 19:39
INR 2.52 12/31/24 19:39
APTT 39.4 Sec (23.4-35.0) H 12/31/24 19:39
Estimated Creat Clear 26 ml/min 01/01/25 04:23
Total Bilirubin 4.6 mg/dl (0.2-1.3) H 01/01/25 04:23
AST 129 U/L (17-59) H 01/01/25 04:23
ALT 103 U/L (0-50) H 01/01/25 04:23
Alkaline Phosphatase 127 U/L (38-126) H 01/01/25 04:23
Most recent labs reviewed.
Micro Results:
12/31/24 20:09 Blood Culture - Pending
Blood/Venous
12/31/24 19:39 Blood Culture - Pending
Blood/Venous
12/28/24 12:27 Blood Culture - Preliminary
Blood/Venous No Growth in 72 hours- Final report to follow
12/30/24 07:36 Blood Culture - Preliminary
Blood/Venous Pseudomonas aeruginosa
Gram Stain - Preliminary
Imaging:
12/30/2024 Duplex ultrasound lower extremity: there is an occlusive thrombus within the right gastrocnemius vein in the calf. There is spontaneous phasic flow with compressibility in the right common femoral, femoral and popliteal veins.
Care Review
Plan reviewed with: Physician (Critical Care)
--- NOTE | 2025-01-01 08:27 | W.PN.HOSP.TC ---
Today's Communication/Plan
-
HE -- lactulose and Xifaxan, monitor mental status and BM frequency
Circulatory shock -- hold diuretics, continue midodrine, wean Levophed as possible
Bacteremia -- continue IV cefepime, follow repeat cultures
GIB -- IV PPI BID, supportive transfusions, hold AC, possible flex sig tomorrow
VDRF -- Daily SAT and plan for SBT when mental status improved
Assessment / Plan
Assessment / Plan
#Hepatic encephalopathy
- Required intubation on 12/31/2024 due to worsening mental status, ammonia near 200
- Was transition from oral lactulose to lactulose via OGT with Xifaxan continued
- CT head without contrast without acuity, no signs of cerebral edema
- Will continue with lactulose and Xifaxan, no utility to trending NH4
- Monitor MSE, wean sedating agents as able
#Circulatory shock
#Pseudomonas bacteremia
- Likely septic shock; unclear source, question urinary versus pulmonary versus gut/translocation
- Resolved circulatory shock on 12/28. Blood cultures were taken on 12/28 after pressors were started overnight.
- 1 Cx obtained at that time which was negative, however second blood culture was not taken until 12/30 was +
- Was started on IV cefepime and infectious disease was consulted; repeat blood cultures obtained
- Became hypotensive when intubated, was started on Levophed for hemodynamic support
- Continue with IV cefepime, renally dosed, trend CBC and temperature curve
- Continue Levophed with MAP goal >65, wean as able
- Continue with midodrine
- Follow repeat blood cultures
#VDRF
#Left-sided pleural effusion
- Was intubated evening of 12/31/2024 with encephalopathy
- Imaging showing large left pleural effusion with possibly some atelectasis
- Does have positive blood cultures with Pseudomonas, cannot rule out pneumonia
- Discussed with ICU, no need for diagnostic thoracentesis, will reassess Friday and consider Thora
- Wean FiO2 as able, daily SAT/SBT
- Trend ABG and daily CXR
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
#Anemia of chronic disease
- Received 2 unit of PRBC here and hemoglobin stabilized; had rebleeding on Eliquis
- Bleeding likely from radiation proctitis; s/p flex sig on 12/27 with bleeding ectasias that received APC
- Now holding anticoagulation, most recent hemoglobin 7.2, currently on IV PPI BID
- GI following, may need additional endoscopy and intervention to radiation proctitis
- Trend CBC and provide transufsions supportively PRN
#MARIA DOLORES on CKD
#Cardiorenal physiology
- Baseline creatinine near 2, up to 3.1 here. Likely cardiorenal physiology with HFrEF and EF 35%.
- Metolazone discontinued; s/p IV Lasix, IV Lasix has since been discontinued due to shock
- Most recent creatinine 2.5; trend BMP, UOP, I's and O's, and daily weights.
- Continue with midodrine and levophed for MAP goal >65 mmHg.
- Avoid nephrotoxins
#RLE DVT
- Ultrasound positive for DVT; did not tolerate reinitiation of Eliquis with GI bleeding
- Discussed with IR about IVC filter however currently with positive blood cultures as above
- Will consider IVC filter 1 blood cultures negative x 48 hours, repeat US as well
#Liver cirrhosis C/B ascites, HE, thrombocytopenia
#Chronic transaminitis
- Question of amiodarone induced liver toxicity, recently was discontinued
- MELD 3.0 score of 30; correlating to 73% to 60 days survival
- Home regimen includes Lasix, lactulose + Xifaxan, midodrine
- Recently had therapeutic paracentesis, no signs of SBP
- Holding home diuretics as above, monitor for recurrence of ascites
#Hypervolemic hyponatremia
- improving with FR diet and holding home diuretic; fluid restriction down to 40 now
- Serum sodium back to 127; nephrology following ; s/p 1 dose of Samsca on 12/30/2024
- Most recent serum sodium 129, to trend BMP
- Monitor volume status, I's and O's, weight
- Consider repeat urine studies if worsened
#Acute on chronic HFrEF
#Ischemic cardiomyopathy
#CAD s/p CABG
- Last TTE with LVEF 35%, mild aortic stenosis, preserved RV function
- Not receiving GDMT due to chronic hypotension and renal insufficiency
- home Diuretic regimen includes Lasix 80 mg twice daily and metolazone 2.5 mg daily
- Diuretics currently on hold here; remains on aspirin and statin
- Continue to trend I's and O's, daily weights
#History of VT
-Previous regimen included amiodarone which was discontinued due to likely associated liver disease
-No longer on any antiarrhythmic therapy, including beta-hemant or CCB
-Has AICD currently in place
#COPD
- Likely GOLD A-B; Home regimen includes Trelegy equivalent with Advair and Spiriva
- No recent pulmonary function test available to review
- No signs of COPD exacerbation on home regimen
#IDDM-2
- Home regimen previously included metformin; insulin lispro 5 units with meals
- Metformin was discontinued; remains on ISS alone
- Blood glucose goal 140-180
#H/O prostate cancer S/P XRT C/B radiation proctitis
#PAD s/p stent and endarterectomy
- Home regimen includes aspirin, not currently on statin per our records
- Will resume nightly statin at atorvastatin 20 mg for now
- Follow-up as OP and uptitrate as needed, LDL goal <70
# Stage II pressure injury on sacrum; present on admission
DVT prophylaxis: SCDs
GI prophylaxis: IV PPI
Diet: NPO for now
CODE STATUS: Full code
Disposition: TBD
Discussed with ICU
Anticipated Discharge: > 48 hours
Subjective/Interval History
-
Date of Service: January 01, 2025
Seen and examined at the bedside. Yesterday afternoon had worsening rectal bleeding and developed altered mentation likely worsening hepatic encephalopathy, ammonia near 200. Was transferred to the ICU, intubated and started on IV vasopressors.
As of this morning is hemodynamically adequate on 8 mcg/min of Levophed. Intubated on ASV rate 14, PEEP 5, FiO2 50%.
Currently sedated, ROS limited.
Nursing notes bloody bowel movements though improving
Objective Data
-
Labs:
Laboratory Results
01/01/25 01/01/25 01/01/25
04:23 04:23 04:23
WBC 10.5
Hgb 7.2 L Cancelled
Hct 22.5 L Cancelled
Plt Count 94 L
PT
INR
HCO3 23.8
Sodium 129 L
Potassium 4.6
Chloride 95 L
Carbon Dioxide 26
BUN 97 H
Creatinine 2.5 H
Glucose 164 H
Calcium 8.0 L
Total Bilirubin 4.6 H
AST 129 H
ALT 103 H
Alkaline Phosphatase 127 H
01/01/25 01/01/25
07:16 10:45
WBC
Hgb Pending
Hct Pending
Plt Count
PT Pending
INR Pending
HCO3
Sodium
Potassium
Chloride
Carbon Dioxide
BUN
Creatinine
Glucose
Calcium
Total Bilirubin
AST
ALT
Alkaline Phosphatase
Vital Signs:
Vital Signs
Temp Pulse Resp BP Pulse Ox
97.9 F 80 18 90/40 99
01/01/25 08:16 01/01/25 08:16 01/01/25 08:16 01/01/25 08:16 01/01/25 08:16
I&O
12/31/24 01/01/2501/02/25
06:59 06:59 05:59
Intake Total 960 / 960 2392.5 / 2440.0 577.5 / 577.5
Output Total 805 / 805 820 / 860 85 / 85
Balance 155 / 155 1572.5 / 1580.0 492.5 / 492.5
Review of Systems
-
Unable to obtain full review of systems at this time due to: Patient Intubation
Physical Exam
-
General: Well Developed, Well Nourished and Appears Chronically Ill
HEENT: Normocephalic, Atraumatic, Moist Mucous Membranes, Anicteric and PERRLA
Respiratory: Clear to Auscultation; Negative Wheezes, Rales or Rhonchi
Cardiac: Regular Rhythm and S1/S2; Negative Murmur, Rub or Gallop
GI: Soft, Nontender, Nondistended and Normal Bowel Sounds
Musculoskeletal: No Clubbing, No Cyanosis and No Edema
Skin: Warm and Dry; Negative Rash
Neuro: Sedated, Nonfocal/Grossly Intact and Central Nerve's Intact
Psych: Calm
Data Reviewed
-
Labs: Labs Reviewed by me, Discussed with Physician and Discussed with Nurse
[2025-01-01] MEDS: PROTONIX IV 40 MG IV ×2 (09:25→19:27)
[2025-01-01] MEDS: NSS (PRESERVATIVE FREE) 10 ML IV ×2 (09:25→19:27)
--- NOTE | 2025-01-01 10:13 | W.PN.CD ---
Today's Communication / Plan
-
Patient transferred to the ICU for reasons noted above. Patient now intubated and being treated for GI bleeding.
Await next hemoglobin. If significant drop or if further acute bleeding then would recommend additional PRBCs. (Last dose of Eliquis 24 hours ago)
Combination of IV fluid, PRBC and Levophed for treatment of hypotension.
ID will need to continue to monitor for evidence of decompensated heart failure as patient receives additional volume
Antibiotics for Pseudomonas bacteremia as directed by ID
Patient with paced rhythm and currently intubated. Will check troponins.
Impression / Plan
-
Background: 74 yo male (known to his outside salesperson Dr. Damon at [facility]) with VT now off of amiodarone, MDT BiV ICD, heart block, pacer dependent, CAD s/p CABG, HFrEF, HTN, HLD, PAD, DM, cirrhosis of liver and prostate cancer, who presented to the ER
with weakness and recurrent BRBPR. Cardiology consulted for concern for acute on chronic HFrEF.
Cupola Patcher: Nelson ([facility])
Patient with multiple complex issues including DVT, Pseudomonas bacteremia with possible to culture 12/30/2024. There was discussion regarding IVC filter but not placed due to bacteremia. Patient was placed on Eliquis and has had issues with GI
bleeding and had decreased level of responsiveness requiring intubation. Patient currently in ICU. Patient's received PRBCs and also pressor support.
.
Hypotension. Likely multifactorial. Patient with GI bleed bleeding, bacteremia also has underlying cardiomyopathy.
- Continue to treat GI bleeding, PRBC, IV fluid
- Titration of Levophed as required for additional blood pressure support
- Additional treatment of bacteremia with antibiotics as directed by ID.
- Rectal bleeding, Received 1 unit PRBC 12/26/2024 and angiectasias in the rectum treated by GI, . Patient with recurrent GI bleeding 12/31/2024.Last dose of apixaban was 12/31/2024 at 8 AM
.
GI bleeding. Per nursing patient's received additional 2 units PRBCs over the last 24 hours. Patient had rectal bleeding overnight. Follow-up hemoglobin pending.
-Additional management as directed by GI
-Await follow-up hemoglobin. If patient has additional acute bleeding would not would give PRBCs.
VDRF
- Per notes. Intubated for decreased level of responsiveness. Chest x-ray with left-sided effusion and atelectasis
- Additional management as directed by pulmonary/critical care
.
HFrEF/ICM - EF 35%. acute on chronic earlier this admission and then felt to be better compensated from a heart failure standpoint but then patient developed issues with GI bleeding with decreased level of responsiveness and required intubation.
- Weight is lowest on record here. suspect he has protein-calorie malnutrition from HFrEF and cirrhosis
-Continue to monitor for evidence of decompensated heart failure as patient receives additional fluid and PRBCs for management of GI bleed.
- Patient has ICD
MARIA DOLORES on CKD
-Creatinine up to 2.5. Nephrology following. Continue treatment of GI bleeding and optimization of hemodynamics.
Anasarca
Rectal bleeding, Received 1 unit PRBC 12/26/2024 and angiectasias in the rectum treated by GI, .
Patient with recurrent GI bleeding as noted above
.
h/o VT and VF treated by his MDT BiV ICD, last ICD gen change 2020
- No recent VT/VF by device check 12/28/2024, but recently off Amiodarone
- MDT ICD in place, no recent discharges. Device interrogation 12/28 with no recurrent VT or NSVT
Complete heart block, pacer dependent, biv device in place
CAD - s/p CABG, stable w/o angina,continue ASA
Cirrhosis w/ Hx of hepatic encephalopathy
Subjective: rectal bleeding has reoccurred; he is feeling frustrated
Data:
- TTE 11/12/2024: LVEF 35%, inferior and anteroseptal hypokinesis, normal RV, mild AAS, mild/mod TR, PASP 33 mmHg
Physical Exam
Vital Signs/Labs
Vital Signs
Temp Pulse Resp BP Pulse Ox
97.9 F 80 18 108/57 99
01/01/25 08:16 01/01/25 08:24 01/01/25 08:24 01/01/25 08:24 01/01/25 09:20
12/31/24 01/01/25 01/02/25
06:59 06:59 05:59
Actual Weight 94.801 kg 92.6 kg
01/01/25 04:23
PT 27.2 Sec (11.4-14.6) H 12/31/24 19:39
INR 2.52 12/31/24 19:39
APTT 39.4 Sec (23.4-35.0) H 12/31/24 19:39
Magnesium 2.4 mg/dl (1.6-2.3) H 12/29/24 04:59
12/26/24
11:15
Igz-G-Nqgjejsbrpy Pept 3170
Physical Exam
Constitutional: Other (Vented. Sedated)
Cardiovascular: Rhythm & rate is regular and Other (Tachycardic)
Respiratory: Other (Vented coarse breath sounds with transmission of sounds from ET tube. No wheezing.)
GI: Soft
Neuro/Psych: Other
Other: Other (Edema present)
Data Reviewed
-
Date of Service: January 01, 2025
Medical Decision Making: Reviewed Test Results
X-Ray/CT/US/MRI/NUC/PET: Report Reviewed by me
Medical Tests (PFT, Pathology etc): Report Reviewed by me
Labs: Labs Reviewed by me
[2025-01-01 10:22] LABS: B.E. 2.6 mmol/L; HCO3 25.5 mmol/L (21-28); O2 Saturation % 99.1 % (94-98); PCO2 32 mmHg (35-48); PO2 133 mmHg (83-108)
[2025-01-01 10:25] LABS: O2 Therapy ASV 120%/40%
--- NOTE | 2025-01-01 10:29 | CM ---
Transferred to ICU yesterday after rapid response, currently intubated.
CM will continue to follow.
[2025-01-01 10:31] LABS: Hematocrit 25.1 % (39.0-52.0); Hemoglobin 8.5 g/dL (13.0-18.0)
[2025-01-01 10:32] LABS: INR 1.96; PT 22.5 Sec (11.4-14.6)
[2025-01-01] MEDS: PITRESSIN 100 IV ×2 (11:25→19:27)
--- NOTE | 2025-01-01 11:47 | PTCARENOTE ---
Systems reviewed. ET secretions brown; sent to lab. [place] tinged oral secretions. Oral care done. PRN Fentanyl IVP. Labs and ABG sent. Discussed with commercial real estate attorney [place] and GI MD [facility]. Vent settings changed to ASV, refer to work list. Pt
tolerating. V-paced on the monitor. Levo titrating up d/t hypotension. Vasopressin added. 2 bloody incont BMs; incont care provided, barrier cream applied generously. Repositioning q2 hour. SCD to LLE. Radha zeroed and correlating to external cuff.
Chávez with low UO. Family at bedside (/ brother/ nephew).
--- NOTE | 2025-01-01 12:10 | W.PN.NEPH.PH ---
Today's Communication / Plan
-
hold diuretics
Assessment/Plan
-
Assessment
MARIA DOLORES (B/L cr 1.9 )
hyponatremia
Anemia
Hypokalemia
pancytopenia
HFrEF 35% with Moderate TR
GI bleed
cirrhosis
left pleural effusion
mild ascites
Plan
hold diuretics today given hypotension and contrast exposure yesterday
follow BMP
follow hgb
prognosis is guarded
d/w at bedside
critical care time 31 minutes
-
-
Date of Service: January 01, 2025
CC / HPI / ROS
-
Chief Complaint:
MARIA DOLORES
History of Present Illness:
critically ill in ICU on pressors
now on vent
Hgb up to 8.5
s/p CTA 12/31 without active bleed
MARIA DOLORES/Cr up at 2.5
sodium up at 129
K up to 4.6
Review of Systems:
intubated sedated
Labs
-
Labs:
Sodium 129 mmol/L (135-145) L 01/01/25 04:23
Potassium 4.6 mmol/L (3.5-5.1) 01/01/25 04:23
Chloride 95 mmol/L (98-107) L 01/01/25 04:23
Carbon Dioxide 26 mmol/L (22-30) 01/01/25 04:23
BUN 97 mg/dl (9-20) H 01/01/25 04:23
Creatinine 2.5 mg/dL (0.7-1.3) H 01/01/25 04:23
eGFR 25.98 01/01/25 04:23
Glucose 164 mg/dl (70-99) H 01/01/25 04:23
Calcium 8.0 mg/dl (8.4-10.2) L 01/01/25 04:23
Xml-S-Uizrbimgxpn Pept 3170 pg/ml 12/26/24 11:15
Albumin 2.3 g/dl (3.5-5.0) L 01/01/25 04:23
Physical Exam
-
Vital Signs:
Vital Signs
Temp Pulse Resp BP Pulse Ox
98.0 F 80 13 108/57 100
01/01/25 11:47 01/01/25 12:00 01/01/25 12:00 01/01/25 08:24 01/01/25 12:00
Cardiovascular:: Regular rate and rhythm
Respiratory:: Bilateral: Coarse
Lung Excursion:: Normal
Abdomen:: Nontender and Soft
Bowel Sounds:: Normal
Extremity Edema:: +2: Bilateral:
[2025-01-01 12:12] LABS: Glucose - Point of Care 246 mg/dl (70-99)
[2025-01-01] MEDS: NOVOLOG FLEXPEN-MODERATE RESISTANCE 3 UNITS SC (13:49)
[2025-01-01 14:00] LABS: Glucose - Point of Care 237 mg/dl (70-99)
--- NOTE | 2025-01-01 16:00 | PTCARENOTE ---
Systems reviewed. Lab work sent. ET secretions more white/yellow in color. Oral secretions brown/ red tinged. V-paced on tele. Chávez UO 25mL-45mL/hr. Levo / vasopressin per the work list. Limiting blood draws d/t anemia. BMs more maroon/burgundy
color. Barrier cream applied generously. Repositioning q2 hours. Midline to RUE. at bedside; answered all questions, support provided. Rounding q1 hour.
[2025-01-01 16:05] LABS: B.E. -0.3 mmol/L; HCO3 22.3 mmol/L (21-28); O2 Saturation % 99.7 % (94-98); PCO2 28 mmHg (35-48); PO2 152 mmHg (83-108)
[2025-01-01 16:24] LABS: Hematocrit 25.4 % (39.0-52.0); Hemoglobin 8.3 g/dL (13.0-18.0); Mean Corp Hgb Conc. 32.7 g/dL (33.0-37.0); Mean Corpuscular Volume 94.1 fL (80.0-94.0); Nucleated Red Blood Cells % 0.3 % (-); Platelet Count 125 10^3/uL (130-400); Red Cell Dist. Width 24.0 % (11.5-14.5)
[2025-01-01 16:42] LABS: Troponin I 0.093 ng/ml
[2025-01-01] MEDS: NOVOLOG FLEXPEN-MODERATE RESISTANCE 5 UNITS SC (17:39)
[2025-01-01 17:49] LABS: Glucose - Point of Care 258 mg/dl (70-99)
--- NOTE | 2025-01-01 20:00 | PTCARENOTE ---
assumed care, pt WD to pain but not following commands, protective reflexes intact, PERRLA 4, B/L wrist restraints, V paced c BBB, doppler pedals, +3 L arm, +2 B/L LE's, R rad a-line zeroed, Scd on L leg, Coarse and diminished more diminished on the
L, ETT #8 23@ lip, ASV 70%/5/40% FiO2, bllod tinged oral secretion, castro scretion through ETT, BSx4 round and distended, burgundy maroon liq stool, thermistor mcmahon c yellow output, skin per worklist, R midline, 20G RFA, Levo and vaso gtts per
worklsit, @ bedside and updated, otherwise refer to documentation
[2025-01-01 22:51] LABS: Hematocrit 24.6 % (39.0-52.0); Hemoglobin 8.1 g/dL (13.0-18.0); Mean Corp Hgb Conc. 32.9 g/dL (33.0-37.0); Mean Corpuscular Volume 95.3 fL (80.0-94.0); Platelet Count 136 10^3/uL (130-400); Red Cell Dist. Width 24.2 % (11.5-14.5)
[2025-01-01 22:52] LABS: Nucleated Red Blood Cells % 0.5 % (-)
[2025-01-01 23:07] LABS: Troponin I 0.097 ng/ml
[2025-01-01] MEDS: ROWASA, CANASA SUPPOSITORY RECTAL (23:25)
[2025-01-02] VITALS (12 sets, daily range): BP systolic 65–132; BP diastolic 52; BMI 29.4
--- NOTE | 2025-01-02 | PTCARENOTE ---
systems reviewed, labs BG 281 5 units given per order, CHG bath, lrg liq burgundy stool, no changes from previous assessment, otherwise refer to documentation
[2025-01-02] MEDS: NOVOLOG FLEXPEN-MODERATE RESISTANCE 5 UNITS SC ×2 (00:22→05:34)
[2025-01-02] MEDS: LEVOPHED 250 IV ×3 (00:29→07:59)
[2025-01-02] MEDS: MAXIPIME 1000 MG IV ×2 (00:29→11:51)
[2025-01-02] MEDS: STERILE WATER FOR INJECTION 10 ML IV ×2 (00:29→11:51)
[2025-01-02 00:31] LABS: Glucose - Point of Care 281 mg/dl (70-99)
[2025-01-02] MEDS: PITRESSIN 100 IV ×2 (04:13→16:07)
[2025-01-02 04:29] LABS: B.E. -0.4 mmol/L; HCO3 22.0 mmol/L (21-28); O2 Saturation % 99.1 % (94-98); PCO2 27 mmHg (35-48); PO2 170 mmHg (83-108)
[2025-01-02 04:59] LABS: Troponin I 0.112 ng/ml
--- NOTE | 2025-01-02 05:00 | PTCARENOTE ---
BG 275 coverage per MAR, labs sent, gtts per worklist, lrg liq burgundy stool otherwise refer to documentation
[2025-01-02 05:01] LABS: ALT (SGPT) 135 U/L (0-50); AST (SGOT) 197 U/L (17-59); Albumin 2.3 g/dl (3.5-5.0); Alkaline Phosphatase 109 U/L (38-126); Blood Urea Nitrogen 115 mg/dl (9-20); Calcium 8.3 mg/dl (8.4-10.2); Carbon Dioxide 23 mmol/L (22-30); Chloride 96 mmol/L (98-107); Estimated Creatinine Clearance 22 ml/min; Glucose 231 mg/dl (70-99); Potassium 5.0 mmol/L (3.5-5.1); Sodium 130 mmol/L (135-145); Total Protein 5.2 g/dl (6.3-8.2); eGFR 21.74
[2025-01-02 05:05] LABS: Hematocrit 24.0 % (39.0-52.0); Hemoglobin 7.9 g/dL (13.0-18.0); Mean Corp Hgb Conc. 32.9 g/dL (33.0-37.0); Mean Corpuscular Volume 95.6 fL (80.0-94.0); Platelet Count 135 10^3/uL (130-400); Red Cell Dist. Width 24.1 % (11.5-14.5)
[2025-01-02 05:27] LABS: Nucleated Red Blood Cells % 0.7 % (-)
[2025-01-02 05:44] LABS: Glucose - Point of Care 275 mg/dl (70-99)
--- NOTE | 2025-01-02 06:39 | W.PN.INTV ---
Today's Communication / Plan
Recommendations
Continue pressors, maintain MAP > 65
Midline to be exchanged for PICC line right upper extremity
Follow hemoglobin, transfuse as needed
Ammonia level elevated, encephalopathy continues
For bedside upper and lower endoscopy per GI today
Creatinine worsening
Assessment
-
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
kidney disease baseline creatinine 1.9, history of ischemic cardiomyopathy with bypass surgery EF 35%, admitted 12/26/2024 for rectal bleeding. Hospital course complicated by renal insufficiency, bacteremia, worsening hepatic encephalopathy,
transferred to ICU requiring intubation 01/01/2025
VDRF, intubated for airway protection, mental status changes
01/01/2025
Hepatic encephalopathy, ammonia level 200
Acute lower GI bleed, secondary to radiation proctitis
Requiring transfusion
Left upper extremity swelling with superficial thrombophlebitis
Right lower extremity DVT
Eliquis therapy 12/03/2024, now discontinued
Liver cirrhosis
Ascites, hepatic encephalopathy, thrombocytopenia
Chronic transaminitis
Acute renal insufficiency, baseline creatinine 1.9, worsening
Hypotension requiring pressors
Suspect multifactorial (bleeding, renal failure, liver failure, cardiomyopathy)
Conditions present prior to admission
Hypertension/hyperlipidemia
Ischemic cardiomyopathy, EF 35%
History of VT, ICD
Amiodarone therapy in the past
Coronary disease bypass surgery
Insulin-dependent diabetes
Severe COPD, FEV1 33%
Recurrent left pleural effusion with left lower lobe consolidation/atelectasis
History of prostate cancer with radiation therapy
Peripheral arterial disease status post lower extremity stent/endarterectomy
Plan/recommendations
Patient with extremely complex medical history
Salient features are progressive anemia with worsening rectal bleeding in the setting of anticoagulation for DVT, worsening encephalopathy with mental status changes now requiring intubation
Hypotension requiring pressors
Still with liquid burgundy stool
Hemoglobin stable at 7.9
Moving forward
Continue with volume-cycled ventilation. Less dyssynchrony with adjustments
Will make adjustments
ASV 70% / 5/40%
Airway pressures adequate
ABG 7.52/27/170
Patient with severe COPD at baseline, FEV1 35%
DuoNebs, Pulmicort
Presently chest exam is clear
Chronic left pleuroparenchymal process is noted
Required outpatient thoracenteses
Tracheal aspirate gram-negative bacilli
Blood culture Pseudomonas
Small left pleural effusion
Will consider left thoracentesis 01/03 depending on clinical course
Marginal blood pressure noted on norepinephrine, vasopressin
Likely multifactorial (circulatory shock, anemia, cardiomyopathy, positive pressure ventilation)
continue pressors, maintain MAP > 65
Will add stress dose steroids
GI bleed, lower
Reviewed with GI
Continue with supportive care, transfuse, follow hemoglobin
Discontinue Protonix and octreotide. Upper GI bleed is not suspected. No output via the OG tube
Ammonia and hepatic encephalopathy
continue with lactulose
GI following
Cirrhosis with thrombocytopenia, portal hypertension, recurrent hepatic encephalopathy in the past. Recent paracentesis without evidence of SBP plan for bedside endoscopy today
Renal insufficiency noted, creatinine 2.9 chronic kidney disease stage III, baseline 1.9
Nephrology following
Currently receiving bicarbonate postcontrast studies
Continue pressors
Ischemic cardiomyopathy, EF 35%
Aspirin being held due to rectal bleed
ICD in place
History of Rt lower extremity DVT and left upper extremity thrombophlebitis
IVC filter was considered but will hold for now
Remains off anticoagulation given bleeding
Blood cultures positive for Pseudomonas 12/30/2024. Blood culture 12/28 normal, 12/31 negative to date
Remains on cefepime
Stage II decubitus ulcer, present at time of admission
Tracheal culture gram-negative bacilli
ID following
Right upper extremity midline to be exchanged for PICC line
DVT prophylaxis: Mechanical on the left. rt DVT noted
GI prophylaxis: Protonix
Reviewed with critical care nursing, respiratory care
Reviewed with ID
Updated at length at bedside 01/02
Multisystem organ failure
Prognosis poor
Remains full code at this time. Ongoing discussion regarding goals of care
TCCT 76 min
Subjective Dataa
Subjective Data
Date of Service:
Date of Service: January 02, 2025
Subjective:
Remains critically ill, hypotensive requiring pressors. Remains on mechanical ventilation. Still with liquid burgundy stool, hemoglobin 7.9, has not required any additional transfusion. Uremia, renal function worsening
Objective Data
Data Reviewed
Vital Signs / I&O / Oxygen:
Vital Signs
Temp Pulse Resp BP Pulse Ox
98.1 F 79 17 95/38 99
01/01/25 20:27 01/02/25 06:00 01/02/25 06:00 01/01/25 17:39 01/02/25 06:00
Intake and Output
12/31/24 01/01/25 01/02/25
06:59 06:59 05:59
Intake Total 960 / 960 2392.5 / 2440.0 1987.5 / 1987.5
Output Total 805 / 805 820 / 860 656 / 656
Balance 155 / 155 1572.5 / 1580.0 1331.5 / 1331.5
SaO2 [ASV] 99
SaO2 [A/C] 99
SaO2 99
Nasal Cannula flow liters per 2
minute
Physical Exam
General: Comfortable and Other (Upper extremity midline, A-line)
HEENT: Normocephalic
Cardiovascular: S1-S2, Regular Rhythm, Murmur (2/6 systolic murmur) and Rub (n)
Respiratory: Wheeze (n), Crackles (n), Rhonchi (n), Non-Labored Respirations and ET Tube
GI: Soft, Distended and Non Tender
Neurology: Lethargic (Sedated but does open eyes. Does not follow commands)
Skin: Rash (n) and Bruising (Few)
Labs/Micro/Reports
Lab Data
01/02/25 04:20
01/02/25 04:20
Laboratory Results
01/01/25 01/01/25 01/02/25
10:08 15:55 04:20
PT 22.5 H
INR 1.96
pH 7.51 H 7.51 H 7.52 H
pCO2 32 L 28 L 27 L
pO2 133 H 152 H 170 H
HCO3 25.5 22.3 22.0
O2 Delivery Level Asv 120%/40%
Microbiology
12/30/24 07:36 Blood/Venous Blood Culture - Preliminary
Pseudomonas aeruginosa
12/30/24 07:36 Blood/Venous Gram Stain - Final
12/31/24 20:09 Blood/Venous Blood Culture - Preliminary
No Growth in 24 hours- Final report to follow
12/31/24 19:39 Blood/Venous Blood Culture - Preliminary
No Growth in 24 hours- Final report to follow
01/01/25 11:36 Tracheal Aspirate Gram Stain - Preliminary
12/28/24 12:27 Blood/Venous Blood Culture - Preliminary
No Growth in 4 days- Final report to follow
--- NOTE | 2025-01-02 07:01 | W.PN.GI.CBS2 ---
Today's Communication / Plan
-
See assessment and plan for details.
Assessment / Plan
-
1. Rectal bleeding: With history of radiation proctitis status post recent APC, then had significant bleeding after starting Eliquis for DVT, likely from ulceration at APC sites in the setting of Eliquis. Other source seems unlikely. CT angiogram
was negative, no bloody output from OG tube making upper source such as peptic ulcer disease or esophageal varices very unlikely. His CT colonography a year ago and other imaging did not show any diverticulosis. He has received a total of 3 units
of PRBCs. At this point we will plan EGD/flex sig this morning.
2. Cirrhosis: Decompensated with hepatic encephalopathy, ascites and thrombocytopenia, now with worsening hepatic encephalopathy. Will continue lactulose via OG tube and Xifaxan. He has had multiple paracentesis and thoracentesis in the past,
though only mild ascites at most on exam now.
Subjective
Subjective
Date of Service: January 02, 2025
Patient with only 2 episodes of small amount of blood in the stool, much less than previous. Hemoglobin has been relatively stable. He has required slightly more pressor support. There is some blood from around his mouth, though no bloody OG
output.
Objective
Data Reviewed
Laboratory Data:
Laboratory Results
01/02/25 04:20
01/02/25 04:20
Laboratory Results
PT 22.5 Sec (11.4-14.6) H 01/01/25 10:08
INR 1.96 01/01/25 10:08
APTT 39.4 Sec (23.4-35.0) H 12/31/24 19:39
Magnesium 2.4 mg/dl (1.6-2.3) H 12/29/24 04:59
Total Bilirubin 4.1 mg/dl (0.2-1.3) H 01/02/25 04:20
AST 197 U/L (17-59) H 01/02/25 04:20
ALT 135 U/L (0-50) H 01/02/25 04:20
Alkaline Phosphatase 109 U/L (38-126) 01/02/25 04:20
Vital Signs and I&O:
Vital Signs
Temp Pulse Resp BP Pulse Ox
98.1 F 79 17 95/38 99
01/01/25 20:27 01/02/25 06:00 01/02/25 06:00 01/01/25 17:39 01/02/25 06:00
I&O
01/01/25 01/02/25 01/03/25
06:59 05:59 06:59
Intake Total 2392.5 / 2440.0 1986.5 / 1986.5
Output Total 820 / 860 656 / 656
Balance 1572.5 / 1580.0 1331.5 / 1331.5
Physical Exam
Physical Exam
General: NAD, sedated, intubated
Abdomen: normal bowel sounds, soft, no tenderness, no masses or bruits, minimal ascites
[2025-01-02] MEDS: DUONEB 3 ML INH ×2 (07:06→11:27)
[2025-01-02] MEDS: PULMICORT 0.5 MG INH ×2 (07:06→19:33)
--- NOTE | 2025-01-02 07:25 | PTCARENOTE ---
Pt's and son are at the bedside and provided an update and the plan of care for the night. They were made aware that his hourly urinary output is poor and that we will be monitoring that. They were informed that should that continue to worsen
that it could mean worsening kidney function and heart failure. His asked about Midodrin and if he was still receiving that. During that time she was informed on the purpose of Vasopressin and Norepinephrine drips and was made aware that
without those 2 medications at this time, his blood pressure would not support organ function and possibly progress to . She is very focused on him having a bowel movement and is not understanding the gravity of the situation. Suportive care
provided. She was provided the phone number to the ICU for overnight update.
--- NOTE | 2025-01-02 07:41 | W.PN.HOSP.TC ---
Today's Communication/Plan
-
Continue lactulose/Xifaxan via DHT
Continue vasopressors via PICC line and wean as able
Strict avoidance of nephrotoxins
Trend CBC, UOP, BMP
Flex sig today
Daily SAT
Assessment / Plan
Assessment / Plan
#Hepatic encephalopathy
- Required intubation on 12/31/2024 due to worsening mental status, ammonia near 200
- Was transition from oral lactulose to lactulose via OGT with Xifaxan continued
- CT head without contrast without acuity, no signs of cerebral edema
- Will continue with lactulose and Xifaxan, no utility to trending NH4
- DHT placed today for lactulose administration, increased to 20 TID
- Monitor MSE, avoid sedating agents as able
- Goal of 3-4 BM daily
#Circulatory shock
#Pseudomonas bacteremia
- Likely septic shock; unclear source, question urinary versus pulmonary versus gut/translocation
- Resolved circulatory shock on 12/28. Blood cultures were taken on 12/28 after pressors were started overnight.
- 1 Cx obtained at that time which was negative, however second blood culture was not taken until 12/30 was +
- Was started on IV cefepime and infectious disease was consulted; repeat blood cultures obtained
- Became hypotensive when intubated, was started on Levophed for hemodynamic support
- Continue with IV cefepime, renally dosed, trend CBC and temperature curve
- Continue Levophed and vasopressin with MAP goal >65, wean as able
- Continue with midodrine
- Follow repeat blood cultures
#VDRF
#Left-sided pleural effusion
- Was intubated evening of 12/31/2024 with encephalopathy
- Imaging showing large left pleural effusion with possibly some atelectasis
- Does have positive blood cultures with Pseudomonas, cannot rule out pneumonia
- Discussed with ICU, no need for diagnostic thoracentesis, will reassess Friday and consider Thora
- Wean FiO2 as able, daily SAT/SBT
- Trend ABG and daily CXR
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
#Anemia of chronic disease
- Received 3 unit of PRBC here and hemoglobin stabilized; had rebleeding on Eliquis
- Bleeding likely from radiation proctitis; s/p flex sig on 12/27 with bleeding ectasias that received APC
- Now holding anticoagulation, most recent hemoglobin 7.9, currently on IV PPI BID
- GI following, may need additional endoscopy and intervention to radiation proctitis
- Trend CBC and provide transfusions supportively PRN
- GI planning flex sig this morning
#Oliguric MARIA DOLORES on CKD
#Cardiorenal physiology
#Hepatorenal syndrome (?)
- Baseline creatinine near 2, up to 3.1 here. Likely cardiorenal physiology with HFrEF and EF 35%.
- Metolazone discontinued; s/p IV Lasix, IV Lasix has since been discontinued due to shock
- Most recent creatinine 2.9; trend BMP, UOP, I's and O's, and daily weights.
- Continue with midodrine and levophed for MAP goal >65 mmHg.
- Holding IV Lasix and optimize hemodynamics
- Avoid nephrotoxins
- Poor candidate for HD
#RLE DVT
- Ultrasound positive for DVT; did not tolerate reinitiation of Eliquis with GI bleeding
- Discussed with IR about IVC filter however currently with positive blood cultures as above
- Will consider IVC filter once blood cultures negative x 48 hours, plan repeat US as well
- Order repeat US for tomorrow
#Elevated troponin
- Likely nonischemic myocardial injury secondary to shock and anemia in context of obstructive CAD
- Holding antiplatelet agents and anticoagulations due to bleeding, currently on statin
- Continue to trend troponin to peak, serial ECG, telemetry
#Liver cirrhosis C/B ascites, HE, thrombocytopenia
#Chronic transaminitis
- Question of amiodarone induced liver toxicity, recently was discontinued
- MELD 3.0 score of 30; correlating to 73% to 60 days survival
- Home regimen includes Lasix, lactulose + Xifaxan, midodrine
- Recently had therapeutic paracentesis, no signs of SBP
- Holding home diuretics as above, monitor for recurrence of ascites
#Hypervolemic hyponatremia
- improving with FR diet and holding home diuretic; fluid restriction down to 40 now
- Serum sodium back to 127; nephrology following ; s/p 1 dose of Samsca on 12/30/2024
- Most recent serum sodium 129, to trend BMP
- Monitor volume status, I's and O's, weight
- Consider repeat urine studies if worsened
#Acute on chronic HFrEF
#Ischemic cardiomyopathy
#CAD s/p CABG
- Last TTE with LVEF 35%, mild aortic stenosis, preserved RV function
- Not receiving GDMT due to chronic hypotension and renal insufficiency
- home Diuretic regimen includes Lasix 80 mg twice daily and metolazone 2.5 mg daily
- Diuretics currently on hold here; remains on aspirin and statin
- Continue to trend I's and O's, daily weights
#History of VT
-Previous regimen included amiodarone which was discontinued due to likely associated liver disease
-No longer on any antiarrhythmic therapy, including beta-hemant or CCB
-Has AICD currently in place
#COPD
- Likely GOLD A-B; Home regimen includes Trelegy equivalent with Advair and Spiriva
- No recent pulmonary function test available to review
- No signs of COPD exacerbation on home regimen
#IDDM-2
- Home regimen previously included metformin; insulin lispro 5 units with meals
- Metformin was discontinued; remains on ISS alone
- Blood glucose goal 140-180
#H/O prostate cancer S/P XRT C/B radiation proctitis
#PAD s/p stent and endarterectomy
- Home regimen includes aspirin, not currently on statin per our records
- Will resume nightly statin at atorvastatin 20 mg for now
- Follow-up as OP and uptitrate as needed, LDL goal <70
# Stage II pressure injury on sacrum; present on admission
DVT prophylaxis: SCDs
GI prophylaxis: IV PPI
Diet: NPO for now
CODE STATUS: Full code
Disposition: TBD
Discussed with ICU
Prognosis is guarded to poor
Anticipated Discharge: > 48 hours
Subjective/Interval History
-
Date of Service: January 02, 2025
Seen and examined at the bedside. No acute events reported overnight. Hemodynamically adequate on Levophed and vasopressin, remains on mechanical ventilation (day 3)
GI planning for flex sig today. Hemoglobin stable at 7.9. Mentation still not improved despite multiple reported bowel movements daily
ROS limited due to intubation encephalopathy
Objective Data
-
Labs:
Laboratory Results
01/01/25 01/02/25
22:34 04:20
WBC 20.5 H 23.9 H
Hgb 8.1 L 7.9 L
Hct 24.6 L 24.0 L
Plt Count 136 135
HCO3 22.0
Sodium 130 L
Potassium 5.0
Chloride 96 L
Carbon Dioxide 23
BUN 115 H*
Creatinine 2.9 H
Glucose 231 H
Calcium 8.3 L
Total Bilirubin 4.1 H
AST 197 H
ALT 135 H
Alkaline Phosphatase 109
Vital Signs:
Vital Signs
Temp Pulse Resp BP Pulse Ox
98.1 F 81 17 95/38 99
01/01/25 20:27 01/02/25 07:07 01/02/25 07:07 01/01/25 17:39 01/02/25 07:07
I&O
01/01/25 01/02/25 01/03/25
06:59 05:59 06:59
Intake Total 2392.5 / 2440.0 1987.5 / 4.0 76.5 / 76.5
Output Total 820 / 860 656 / 676
Balance 1572.5 / 1580.0 1331.5 / 1388.0 56.5 / 56.5
Review of Systems
-
History Source: Patient
All other systems: Reviewed and negative
Physical Exam
-
General: Well Developed, No Apparent Distress, Intubated and Appears Chronically Ill
HEENT: Normocephalic, Atraumatic, Moist Mucous Membranes and Other (Icteric sclera, mild)
Respiratory: Clear to Auscultation and Non Labored Respirations; Negative Accessory Resp Muscle Use
Cardiac: Regular Rhythm, S1/S2 and Murmur; Negative Rub, JVD or Gallop
GI: Soft, Nontender, Nondistended and Normal Bowel Sounds
Genito-urinary: Clear Urine and Chávez
Musculoskeletal: No Clubbing, No Cyanosis and Other (2+ LE edema)
Skin: Warm, Dry and Jaundice (mild); Negative Rash
Neuro: Nonfocal/Grossly Intact and Other (Limited due to intubation and encephalopathy)
Data Reviewed
-
Labs: Labs Reviewed by me and Discussed with Nurse
--- NOTE | 2025-01-02 07:44 | W.PN.UPDATE ---
Update Note
Progress Note Update
I updated the patient's , discussed EGD and flexible sigmoidoscopy, discussed risks and benefits. She contents for procedures.
[2025-01-02] MEDS: DUPHALAC/CHRONULAC 20 GRAMS PO ×2 (08:03→16:10)
[2025-01-02] MEDS: PROTONIX IV 40 MG IV ×2 (08:03→21:45)
[2025-01-02] MEDS: XIFAXAN 550 MG PO (08:04)
[2025-01-02] MEDS: NSS (PRESERVATIVE FREE) 10 ML IV ×2 (08:04→21:45)
--- NOTE | 2025-01-02 08:12 | W.PN.ID1 ---
Date of Service
Date of Service: January 02, 2025
Today's Communication
Continue antibiotics.
Assessment / Plan
Pseudomonas bacteremia of unclear source
- Prior history of Pseudomonas recovered from lungs
- ?GI translocation
DVT (gastrocnemius vein)
GI bleed
Hepatic encephalopathy
Hyponatremia
Renal insufficiency
DM
HLD
HTN
CAD; Hx OR
PAD
Hx prostate CA
V. tach
CHF with depressed EF
COPD
Recommendations:
Continue with cefepime. Dose has been adjusted for renal insufficiency (current CrCl = 22)
Repeat blood cultures pending.
Would hold (if possible) on placement of IVC filter for now until blood cultures are negative x 48 hours.
Follow white count and temperature curve.
Continue with supportive measures.
Patient critically ill with hypoxemic respiratory failure in ICU
����������������������������������������������������������
Chief Complaint
-: Leukocytosis, Bacteremia and Other (Hepatic encephalopathy)
Subjective / Review of Systems
Patient seen and examined. Remains on vent at this time.
Vital Signs / Physical Exam
Vital Signs
Vital Signs
Temp Pulse Resp BP Pulse Ox
98.1 F 81 17 95/38 99
01/01/25 20:27 01/02/25 07:07 01/02/25 07:07 01/01/25 17:39 01/02/25 07:07
Physical Exam
Constitutional: Acutely Ill and Toxic
Head: Other (ET tube in place)
Eyes: Other (Scleral icterus noted)
Cardiovascular: Regular Rate and S1/S2; Negative S3/S4
Pulmonary: Clear and Coarse; Negative Wheezes or Rales
Gastrointestinal: Soft, Non Distended, Decreased Bowel Sounds, No Rebound and No Guarding
Genito-Urinary: Chávez
Extremities: Edema; Negative Cyanosis or Erythema
Skin: Jaundice
Objective Data
Lab Data
Lab Results
01/02/25 04:20
01/02/25 04:20
PT 22.5 Sec (11.4-14.6) H 01/01/25 10:08
INR 1.96 01/01/25 10:08
APTT 39.4 Sec (23.4-35.0) H 12/31/24 19:39
Estimated Creat Clear 22 ml/min 01/02/25 04:20
Total Bilirubin 4.1 mg/dl (0.2-1.3) H 01/02/25 04:20
AST 197 U/L (17-59) H 01/02/25 04:20
ALT 135 U/L (0-50) H 01/02/25 04:20
Alkaline Phosphatase 109 U/L (38-126) 01/02/25 04:20
Most recent labs reviewed.
Micro Results:
12/30/24 07:36 Blood Culture - Preliminary
Blood/Venous Pseudomonas aeruginosa
Gram Stain - Final
12/31/24 20:09 Blood Culture - Preliminary
Blood/Venous No Growth in 24 hours- Final report to follow
12/31/24 19:39 Blood Culture - Preliminary
Blood/Venous No Growth in 24 hours- Final report to follow
01/01/25 11:36 Respiratory Culture - Pending
Tracheal Aspirate Gram Stain - Preliminary
12/28/24 12:27 Blood Culture - Preliminary
Blood/Venous No Growth in 4 days- Final report to follow
Imaging:
12/30/2024 Duplex ultrasound lower extremity: there is an occlusive thrombus within the right gastrocnemius vein in the calf. There is spontaneous phasic flow with compressibility in the right common femoral, femoral and popliteal veins.
[2025-01-02 08:46] LABS: Ammonia 194 umol/L (9-30)
[2025-01-02] MEDS: SUBLIMAZE 50 MCG IV (09:59)
[2025-01-02] MEDS: VERSED 2 MG IV (10:18)
--- NOTE | 2025-01-02 10:47 | W.PN.UPDATE ---
Update Note
Progress Note Update
Full endoscopy ports to be forthcoming. Endoscopy showed no esophageal varices, no blood in the stomach. There were multiple small bowel angiectasia throughout the examined duodenum and beginning of the jejunum with minimal oozing, no discrete
brisk bleeding. Flexible sigmoidoscopy showed some brown stool in the sigmoid colon, minimal blood proximally, with clot and blood in the rectum with ulceration at sites of APC, 1 with active oozing. This was treated with bipolar cautery with good
results and no active bleeding at the end of the procedure. Some of the rectum was not visualized given blood in the rectum.
I discussed with the patient's family at length. Blood loss likely multifactorial, large component from bleeding from APC sites, though also likely some oozing from small bowel angiectasia in the setting of Eliquis. Will continue lactulose,
hopefully the bleeding is now improved his mentation will start to improve as well. Would hold on any further attempts at anticoagulation.
--- NOTE | 2025-01-02 10:50 | W.PN.NEPH.PH ---
Today's Communication / Plan
-
follow BMP
Assessment/Plan
-
Assessment
MARIA DOLORES (B/L cr 1.9 )
hyponatremia
Anemia
Hypokalemia
pancytopenia
HFrEF 35% with Moderate TR
GI bleed
cirrhosis
left pleural effusion
mild ascites
Plan
hold diuretics today
follow BMP
follow hgb
prognosis is poor
d/w . likely MARIA DOLORES is from contrast + decompensated liver disease with GIB. unfortunately, he is not a candidate for dialysis. She understands this.
critical care time 31 minutes
-
-
Date of Service: January 02, 2025
CC / HPI / ROS
-
Chief Complaint:
MARIA DOLORES
History of Present Illness:
critically ill in ICU on pressors
now on vent
Hgb down to 7.9
s/p CTA 12/31 without active bleed
MARIA DOLORES/Cr up at 2.9
sodium up at 130
K up to 5.0
Review of Systems:
intubated sedated
Labs
-
Labs:
WBC 23.9 10^3/uL (4.8-10.8) H 01/02/25 04:20
RBC 2.51 10^6/uL (4.70-6.10) L 01/02/25 04:20
Hgb 7.9 g/dL (13.0-18.0) L 01/02/25 04:20
Hct 24.0 % (39.0-52.0) L 01/02/25 04:20
Plt Count 135 10^3/uL (130-400) 01/02/25 04:20
Sodium 130 mmol/L (135-145) L 01/02/25 04:20
Potassium 5.0 mmol/L (3.5-5.1) 01/02/25 04:20
Chloride 96 mmol/L (98-107) L 01/02/25 04:20
Carbon Dioxide 23 mmol/L (22-30) 01/02/25 04:20
BUN 115 mg/dl (9-20) H* 01/02/25 04:20
Creatinine 2.9 mg/dL (0.7-1.3) H 01/02/25 04:20
eGFR 21.74 01/02/25 04:20
Glucose 231 mg/dl (70-99) H 01/02/25 04:20
Calcium 8.3 mg/dl (8.4-10.2) L 01/02/25 04:20
Ceb-S-Gcsztxlella Pept 3170 pg/ml 12/26/24 11:15
Albumin 2.3 g/dl (3.5-5.0) L 01/02/25 04:20
Physical Exam
-
Vital Signs:
Vital Signs
Temp Pulse Resp BP Pulse Ox
98.1 F 86 17 95/38 98
01/01/25 20:27 01/02/25 08:00 01/02/25 08:00 01/01/25 17:39 01/02/25 08:00
Cardiovascular:: Regular rate and rhythm
Respiratory:: Bilateral: Coarse
Lung Excursion:: Normal
Abdomen:: Nontender and Soft
Bowel Sounds:: None
Extremity Edema:: +3: Bilateral:
--- NOTE | 2025-01-02 11:47 | W.PN.CD ---
Today's Communication / Plan
-
Patient remains critically ill. Vented and intubated. Patient with EGD and flex sig today and had some oozing and area treated. Full report pending. Defer to GI regarding additional management GI bleeding.
Patient remains on pressor support. Wean as tolerated. Mild elevation in troponin likely non-OR troponin related to critical illness, severe anemia, pressors and hypotension.
Continue supportive treatment.
Impression / Plan
-
Background: 74 yo male (known to his associate professor of management Dr. Damon at [facility]) with VT now off of amiodarone, MDT BiV ICD, heart block, pacer dependent, CAD s/p CABG, HFrEF, HTN, HLD, PAD, DM, cirrhosis of liver and prostate cancer, who presented to the ER
with weakness and recurrent BRBPR. Cardiology consulted for concern for acute on chronic HFrEF.
Environmental Monitoring Technician: Nelson ([facility])
Patient with multiple complex issues including DVT, Pseudomonas bacteremia with possible to culture 12/30/2024. There was discussion regarding IVC filter but not placed due to bacteremia. Patient was placed on Eliquis and has had issues with GI
bleeding and had decreased level of responsiveness requiring intubation. Patient currently in ICU. Patient's received PRBCs and also pressor support.
.
Hypotension. Likely multifactorial. Patient with GI bleed bleeding, bacteremia also has underlying cardiomyopathy.
- Continue to treat GI bleeding, PRBC, IV fluid
- Wean pressors as tolerated.
- Additional treatment of bacteremia with antibiotics as directed by ID.
- Per nursing patient has received a total of 3 units of PRBCs as well as unit of FFP this admission.
.
GI bleeding. Patient had a acute patient had issues with acute bleeding 12/31 - 01/01/2025. Issues have continued to be assessed.
GI performed EGD and flex sig. Apparently there is still some areas of oozing that were treated. Full report still pending.
.
VDRF
- Per notes. Intubated for decreased level of responsiveness. Chest x-ray with left-sided effusion and atelectasis
- Additional management as directed by pulmonary/critical care
.
HFrEF/ICM - EF 35%. acute on chronic earlier this admission and then felt to be better compensated from a heart failure standpoint but then patient developed issues with GI bleeding with decreased level of responsiveness and required intubation.
- Weight is lowest on record here. suspect he has protein-calorie malnutrition from HFrEF and cirrhosis
-Continue to monitor for evidence of decompensated heart failure as patient receives additional fluid and PRBCs for management of GI bleed.
- Patient has ICD
MARIA DOLORES on CKD
-Creatinine up to 2.5. Nephrology following. Continue treatment of GI bleeding and optimization of hemodynamics.
Anasarca
Rectal bleeding, Received 1 unit PRBC 12/26/2024 and angiectasias in the rectum treated by GI, .
Patient with recurrent GI bleeding as noted above
.
h/o VT and VF treated by his MDT BiV ICD, last ICD gen change 2020
- No recent VT/VF by device check 12/28/2024, but recently off Amiodarone
- MDT ICD in place, no recent discharges. Device interrogation 12/28 with no recurrent VT or NSVT
Complete heart block, pacer dependent, biv device in place
CAD - s/p CABG, stable w/o angina,continue ASA
Cirrhosis w/ Hx of hepatic encephalopathy
Subjective: rectal bleeding has reoccurred; he is feeling frustrated
Data:
- TTE 11/12/2024: LVEF 35%, inferior and anteroseptal hypokinesis, normal RV, mild AAS, mild/mod TR, PASP 33 mmHg
Physical Exam
Vital Signs/Labs
Vital Signs
Temp Pulse Resp BP Pulse Ox
98.1 F 69 18 95/38 99
01/01/25 20:27 01/02/25 11:30 01/02/25 11:30 01/01/25 17:39 01/02/25 11:31
01/01/25 01/02/25 01/03/25
06:59 05:59 06:59
Actual Weight 92.6 kg 93 kg
01/02/25 04:20
01/02/25 04:20
PT 22.5 Sec (11.4-14.6) H 01/01/25 10:08
INR 1.96 01/01/25 10:08
APTT 39.4 Sec (23.4-35.0) H 12/31/24 19:39
Magnesium 2.4 mg/dl (1.6-2.3) H 12/29/24 04:59
12/26/24
11:15
Tcy-E-Yhrjdybajsw Pept 3170
LAB Results
01/01/25 01/01/25 01/01/25
10:30 15:55 16:30
Troponin I Cancelled 0.093 H* Cancelled
01/01/25 01/01/25 01/02/25
22:30 22:34 04:20
Troponin I Cancelled 0.097 H* 0.112 H*
Physical Exam
Constitutional: Other (Vented sedated)
Cardiovascular: Other (Tachycardic. Systolic murmur)
Respiratory: Other (Coarse vented breath sounds)
GI: Other (Mildly distended)
Data Reviewed
-
Date of Service: January 02, 2025
Medical Decision Making: Reviewed Test Results
Medical Tests (PFT, Pathology etc): Report Reviewed by me
Labs: Labs Reviewed by me
Critical Care Time (in minutes): 32
[2025-01-02] MEDS: SOLU-CORTEF 50 MG IV ×2 (11:51→18:11)
--- NOTE | 2025-01-02 12:00 | PTCARENOTE ---
Pt remains obtunded, withdrawals to painful stimuli. does not follow commands. +corneals, weak gag/cough. Received with Levo/Vaso infusing via RUE midline. Vent ASV 70%/5 PEEP/ 40% Fi02. PICC line TL placed for increasing pressor requirements,
confirmed placement via CXR. Tap water enema given. Bedside EGD/flex sig performed by Dr. Sharp this morning. IVP Fentanyl 50mcg and versed 2mg IVP given immediately pre procedure. Pt tolerated well. NGT removed as it was displaced in esophagus
during procedure. Order to place DHT for meds; right nare @ 75 cm. Patient cleansed, all linens changed, CHG done. ETT keyes replaced, oral care done q4 hours. and son at bedside, updated and all questions answered.
[2025-01-02] MEDS: NOVOLOG FLEXPEN-MODERATE RESISTANCE 3 UNITS SC (12:13)
[2025-01-02 12:24] LABS: Glucose - Point of Care 226 mg/dl (70-99)
[2025-01-02] MEDS: LEVOPHED 258 MG IV ×2 (12:29→18:06)
[2025-01-02 12:40] LABS: Triglycerides 114 mg/dl (10-149)
--- NOTE | 2025-01-02 16:00 | PTCARENOTE ---
Systems unchanged. and son at bedside. Pt has had no BMs since procedure this morning. Turning q2 hours. Titrating Levo for SBP >90. Low UO, 15-30cc/hr. Rounding q1 hr. Safe environment maintained.
[2025-01-02 18:01] LABS: Glucose - Point of Care 223 mg/dl (70-99)
[2025-01-02] MEDS: NOVOLOG FLEXPEN-HIGH RESISTANCE 4 UNITS SC ×2 (18:10→23:45)
--- NOTE | 2025-01-02 18:45 | PTCARENOTE ---
Received pt intubated with no sedation infusing. He is unrestrained, remains unresponsive & does not follow simple commands. Pupils +3 & sluggishly reactive. Weak gag & cough. +3 anasarca. Doppler pedal pulses. Right radial arterial line transduced
and monitored with all ports patent and secured. Right upper arm TL PICC with Vasopressin & Norepinephrine infusing. Open port flushed and patent. #8ETT secured 24 cm @lip. Breath sounds posteriorly coarse rhonchi throughout the right and diminished
on the left. Bloody drainage noted in subglottic tube. Dry blood noted in his mouth. Bilateral Upper extremities oozing serous fluid. Right FA protective catheter removed. Right nare DHT secured 75cm. Placement verified w/air bolus and aspirated a
large amount of air until castro secretions were aspirated. Hypoactive BSX4. +flattus. Temperature sensing Chávez catheter secured, draining scant amounts of urine. Calazime to sacrum. Silicone border dressing intact, covering DTI w/surrounding skin
pink and blanchable. Right knee SBD CDI, Left FA SBD saturated with serous drainage. All extremities are elevated on pillows. Aspiration precautions maintained. Will continue to monitor.
[2025-01-02] MEDS: DUPHALAC/CHRONULAC 20 GRAMS TUBE (21:45)
[2025-01-02] MEDS: ROWASA, CANASA SUPPOSITORY 1000 MG RECTAL (21:46)
[2025-01-02 23:39] LABS: Glucose - Point of Care 227 mg/dl (70-99)
[2025-01-02] MEDS: XIFAXAN PO (23:42)
[2025-01-02] MEDS: NOVOLOG FLEXPEN 5 UNITS SC (23:44)
[2025-01-03] VITALS (12 sets, daily range): BP systolic 98–135; BP diastolic 53; BMI 29.4
[2025-01-03] MEDS: MAXIPIME 1000 MG IV (01:01)
[2025-01-03] MEDS: SOLU-CORTEF 50 MG IV ×5 (01:01→23:32)
[2025-01-03] MEDS: STERILE WATER FOR INJECTION 10 ML IV (01:01)
[2025-01-03] MEDS: LEVOPHED 258 MG IV ×3 (01:13→20:33)
--- NOTE | 2025-01-03 02:00 | PTCARENOTE ---
Complete CHG bath given. Silicon border dressings to his left arm changed, see work list. Lungs tubular and coarse on the left and diminished on the right. Pt was laying on his right side when breath sounds auscultated. Hypoactive BSX4. Fousl
smelling flatus with repositioning. Pt remains flaccid and unresponsive.
[2025-01-03] MEDS: PITRESSIN 100 IV ×3 (02:32→23:31)
[2025-01-03 04:27] LABS: B.E. -3.2 mmol/L; HCO3 20.2 mmol/L (21-28); O2 Saturation % 99.6 % (94-98); PCO2 29 mmHg (35-48); PO2 129 mmHg (83-108)
[2025-01-03 04:58] LABS: ALT (SGPT) 184 U/L (0-50); AST (SGOT) 257 U/L (17-59); Albumin 2.2 g/dl (3.5-5.0); Alkaline Phosphatase 110 U/L (38-126); Calcium 8.0 mg/dl (8.4-10.2); Carbon Dioxide 22 mmol/L (22-30); Chloride 95 mmol/L (98-107); Glucose 190 mg/dl (70-99); Potassium 5.4 mmol/L (3.5-5.1); Sodium 126 mmol/L (135-145); Total Protein 5.2 g/dl (6.3-8.2)
[2025-01-03 04:59] LABS: Hematocrit 23.6 % (39.0-52.0); Hemoglobin 7.7 g/dL (13.0-18.0); Mean Corp Hgb Conc. 32.6 g/dL (33.0-37.0); Mean Corpuscular Volume 97.5 fL (80.0-94.0); Platelet Count 133 10^3/uL (130-400); Red Cell Dist. Width 23.8 % (11.5-14.5)
[2025-01-03 05:09] LABS: Blood Urea Nitrogen 126 mg/dl (9-20); Estimated Creatinine Clearance 17 ml/min; eGFR 15.72
--- NOTE | 2025-01-03 05:12 | W.PN.GI.CBS2 ---
Today's Communication / Plan
-
Please see assessment and plan for details.
Assessment / Plan
-
1. Rectal bleeding: Secondary to ulceration at APC site with active oozing, status post gold probe cautery, doing well, no further signs of gross bleeding. Likely also had some component of blood loss given diffuse small bowel angiectasia in the
setting of anticoagulation, though again all now stable. No esophageal or gastric varices were seen. At this point we will continue supportive care, no anticoagulation in the future. Okay to start Dobbhoff feedings from GI standpoint.
2. Cirrhosis: Decompensated with hepatic encephalopathy, ascites and thrombocytopenia, now with worsening hepatic encephalopathy likely precipitated by bleeding. No bowel movements overnight, will increase lactulose to 4 times daily, continue
rifaximin. His renal function had been worsening, renal following.
Subjective
Subjective
Date of Service: January 03, 2025
No events overnight, still on 2 pressors, no bowel movements, no signs of bleeding, hemoglobin has remained stable.
Objective
Data Reviewed
Laboratory Data:
Laboratory Results
01/03/25 04:16
01/03/25 04:16
Laboratory Results
PT 22.5 Sec (11.4-14.6) H 01/01/25 10:08
INR 1.96 01/01/25 10:08
APTT 39.4 Sec (23.4-35.0) H 12/31/24 19:39
Magnesium 2.4 mg/dl (1.6-2.3) H 12/29/24 04:59
Total Bilirubin 4.7 mg/dl (0.2-1.3) H 01/03/25 04:16
AST 257 U/L (17-59) H 01/03/25 04:16
ALT 184 U/L (0-50) H 01/03/25 04:16
Alkaline Phosphatase 110 U/L (38-126) 01/03/25 04:16
Vital Signs and I&O:
Vital Signs
Temp Pulse Resp BP Pulse Ox
99.2 F 86 17 116/52 100
01/03/25 03:41 01/03/25 04:30 01/03/25 04:30 01/02/25 09:44 01/03/25 04:30
I&O
01/01/25 01/02/25 01/03/25
06:59 05:59 06:59
Intake Total 2392.5 / 2440.0 1987.5 / 2064.0 1559.4 / 1559.4
Output Total 820 / 860 656 / 676 445 / 445
Balance 1572.5 / 1580.0 1331.5 / 1388.0 1114.4 / 1114.4
Physical Exam
Physical Exam
General: NAD
Abdomen: normal bowel sounds, soft, no tenderness, no masses or bruits, minimal appreciable ascites
[2025-01-03] MEDS: CALCIUM GLUCONATE 1000 MG IV (05:42)
[2025-01-03] MEDS: NOVOLIN R 5 UNITS IV ×2 (05:45→12:37)
[2025-01-03] MEDS: DEXTROSE 50% SYRINGE 25 GRAMS IV (05:49)
[2025-01-03] MEDS: NOVOLOG FLEXPEN 5 UNITS SC (06:04)
[2025-01-03] MEDS: NOVOLOG FLEXPEN-HIGH RESISTANCE 10 UNITS SC (06:05)
[2025-01-03 06:15] LABS: Glucose - Point of Care 321 mg/dl (70-99)
[2025-01-03 06:20] LABS: Nucleated Red Blood Cells % 0.6 % (-)
--- NOTE | 2025-01-03 06:31 | PTCARENOTE ---
Clarified with Dr. Aron Muniz order for later this morning. Will hold & continue with Lactulose as ordered.
[2025-01-03 07:21] LABS: Glucose - Point of Care 281 mg/dl (70-99)
--- NOTE | 2025-01-03 07:37 | W.PN.INTV ---
Today's Communication / Plan
Recommendations
Follow ammonia
Increase lactulose
Antibiotics
Not ready for spontaneous breathing trial
Nephrology evaluation of worsening renal function
Norepinephrine and vasopressin as needed
Follow hemoglobin
Transfuse if needed
Updated family
Assessment
-
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
kidney disease baseline creatinine 1.9, history of ischemic cardiomyopathy with bypass surgery EF 35%, admitted 12/26/2024 for rectal bleeding. Hospital course complicated by renal insufficiency, bacteremia, worsening hepatic encephalopathy,
transferred to ICU requiring intubation 01/01/2025
VDRF, intubated for airway protection, mental status changes
01/01/2025
Hepatic encephalopathy, ammonia level 200
Acute lower GI bleed, secondary to radiation proctitis
Requiring transfusion
Left upper extremity swelling with superficial thrombophlebitis
Right lower extremity DVT
Eliquis therapy 12/03/2024, now discontinued
Liver cirrhosis
Ascites, hepatic encephalopathy, thrombocytopenia
Chronic transaminitis
Acute renal insufficiency, baseline creatinine 1.9, worsening
Hypotension requiring pressors
Suspect multifactorial (bleeding, renal failure, liver failure, cardiomyopathy)
Conditions present prior to admission:
Hypertension/hyperlipidemia
Ischemic cardiomyopathy, EF 35%
History of VT, ICD
Amiodarone therapy in the past
Coronary disease bypass surgery
Insulin-dependent diabetes
Severe COPD, FEV1 33%
Recurrent left pleural effusion with left lower lobe consolidation/atelectasis
History of prostate cancer with radiation therapy
Peripheral arterial disease status post lower extremity stent/endarterectomy
Plan/recommendations
Remains critically ill sedated on a ventilator with high ammonia level
Ventilator settings reviewed
ABGs reviewed
Ventilator adjusted
Spontaneous breathing trial once mental status improves
Nebulizers if needed-currently not bronchospastic-currently on DuoNebs and Pulmicort
VAP prevention protocol
Aspiration precautions
Severe COPD at baseline-FEV1 35% predicted
Follow x-ray
Follow hemoglobin
Transfuse as needed
PPI
Gastroenterology following-reviewed case with them-not requiring additional transfusions
Replace electrolytes including calcium
Norepinephrine and vasopressin continues-attempt to wean
Stress dose steroids-hydrocortisone continue
Follow lactate
Lactulose intensified
Follow ammonia level
Recent paracentesis without evidence of SBP plan for bedside endoscopy today
Chronic left pleuroparenchymal process is noted
Required outpatient thoracenteses
Tracheal aspirate gram-negative bacilli
Blood culture Pseudomonas
Small left pleural effusion
Will consider left thoracentesis-depending on clinical course
Monitor renal ventdncs-vvzradqef-vmzmbly kidney disease stage III with baseline serum creatinine 1.9, now with GI bleed and received dye
Nephrology following
Bicarbonate as needed
Monitor cardiac status closely
Patient with known ischemic cardiomyopathy-EF 35%
Aspirin on hold due to rectal bleeding
ICD in place
Cardiology following
History of Rt lower extremity DVT and left upper extremity thrombophlebitis
IVC filter was considered but will hold for now
Remains off anticoagulation given bleeding
Cultures reviewed
Blood culture 1/4-Pseudomonas
Sputum culture-Pseudomonas
Infectious disease following
Antibiotics per infectious disease
Monitor blood sugar
Insulin drip per protocol
Diabetic nurse practitioner
DVT prophylaxis: Mechanical on the left. rt DVT noted
GI prophylaxis: Protonix
Nutrition-begin tube feeds 01/03/[address] Tavares updated son and on multidisciplinary rounds 01/03/2025
Critical care statement: A total of 45 minutes of critical care time was provided for this patient today. This includes management of unstable vital signs, evaluation of the patient at bedside, reviewing the patient�s pertinent medical records
including radiographs, microbiology, laboratory evaluations, and��discussion with primary team, consultants, pharmacy, nutrition, physical therapy, case management, charge nurse, critical care nursing, and respiratory therapy.
Subjective Dataa
Subjective Data
Date of Service:
Date of Service: January 03, 2025
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
Subjective:
Sedated on a ventilator, no increased secretions, review of systems unobtainable
Review of Systems
General: Unobtainable - Sedation
Objective Data
Data Reviewed
Vital Signs / I&O / Oxygen:
Vital Signs
Temp Pulse Resp BP Pulse Ox
99.2 F 83 15 116/52 100
01/03/25 03:41 01/03/25 06:15 01/03/25 06:15 01/02/25 09:44 01/03/25 06:15
Intake and Output
01/02/25 01/03/25 01/04/25
05:59 06:59 06:59
Intake Total 1987.5 / 2064.0 1652.5 / 1652.5
Output Total 656 / 676 537 / 537
Balance 1331.5 / 1388.0 1115.5 / 1115.5
SaO2 [ASV] 98
SaO2 [A/C] 99
SaO2 100
Nasal Cannula flow liters per 2
minute
Physical Exam
General: Respiratory Distress (n), Comfortable and Other (Upper extremity midline, A-line)
HEENT: Normocephalic, Anicteric and Moist Mucous Membranes
Cardiovascular: Regular Rhythm, Murmur (2/6 systolic murmur) and Rub (n)
Respiratory: Wheeze (n), Crackles (Few basilar), Rhonchi (n), Non-Labored Respirations, Accessory Resp Muscle Use (n), Stridor (n) and ET Tube
GI: Soft, Distended and Non Tender
Neurology: Lethargic (Sedated but does open eyes. Does not follow commands)
Skin: Warm, Good Color, Cyanosis (n), Jaundice (n), Rash (n) and Bruising (Few)
Labs/Micro/Reports
Lab Data
01/03/25 04:16
Laboratory Results
01/03/25
04:16
pH 7.45
pCO2 29 L
pO2 129 H
HCO3 20.2 L
O2 Delivery Level
Microbiology
01/01/25 11:36 Tracheal Aspirate Respiratory Culture - Preliminary
Gram negative bacilli
01/01/25 11:36 Tracheal Aspirate Gram Stain - Preliminary
12/31/24 20:09 Blood/Venous Blood Culture - Preliminary
No Growth in 48 hours- Final report to follow
12/31/24 19:39 Blood/Venous Blood Culture - Preliminary
No Growth in 48 hours- Final report to follow
12/28/24 12:27 Blood/Venous Blood Culture - Final
No Growth - Final Report
12/30/24 07:36 Blood/Venous Blood Culture - Final
Pseudomonas aeruginosa
12/30/24 07:36 Blood/Venous Gram Stain - Final
[2025-01-03 07:51] LABS: Glucose - Point of Care 228 mg/dl (70-99)
[2025-01-03 08:04] LABS: Glucose - Point of Care 241 mg/dl (70-99)
[2025-01-03] MEDS: PROTONIX IV 40 MG IV ×2 (08:09→20:34)
[2025-01-03] MEDS: NSS (PRESERVATIVE FREE) 10 ML IV ×2 (08:09→20:34)
[2025-01-03] MEDS: XIFAXAN 550 MG TUBE ×2 (08:09→20:34)
[2025-01-03] MEDS: FLUSH (NSS) 2 FLUSH IV (08:10)
[2025-01-03] MEDS: PULMICORT 0.5 MG INH ×2 (08:10→19:27)
[2025-01-03 08:14] LABS: Potassium 5.3 mmol/L (3.5-5.1)
[2025-01-03] MEDS: DUPHALAC/CHRONULAC 20 GRAMS TUBE ×4 (08:18→22:26)
--- NOTE | 2025-01-03 08:59 | W.PN.ID1 ---
Date of Service
Date of Service: January 03, 2025
Today's Communication
Discontinue cefepime and begin meropenem
Assessment / Plan
Pseudomonas bacteremia of unclear source
- History of Pseudomonas recovered from lungs
- Pseudomonas again recovered on 01/01 from the lungs.
DVT (gastrocnemius vein)
GI bleed
Hepatic encephalopathy
Hyponatremia
Renal insufficiency; worsening
Elevated LFTs; trending up
DM
HLD
HTN
CAD; Hx VA
PAD
Hx prostate CA
V. tach
CHF with depressed EF
COPD
Recommendations:
Repeat blood cultures show no growth x 48 hours
Given encephalopathy, will change to meropenem (dosed for current renal insufficiency)
With blood cultures negative, now safer to insert IVC filter if felt needed.
Follow white count and temperature curve.
Continue with supportive measures.
Patient critically ill with hypoxemic respiratory failure and possible evolving hepatorenal syndrome in ICU.
[place] extremely guarded at this time
����������������������������������������������������������
Chief Complaint
-: Leukocytosis, Clinical Sepsis, Bacteremia and Other (Hepatic encephalopathy)
Subjective / Review of Systems
Patient seen and examined. Remains on vent at this time. Low-grade temps noted overnight. (Tmax 100.2)
Vital Signs / Physical Exam
Vital Signs
Vital Signs
Temp Pulse Resp BP Pulse Ox
98 F 81 15 107/44 99
01/03/25 08:00 01/03/25 08:30 01/03/25 08:30 01/03/25 08:08 01/03/25 08:30
Physical Exam
Constitutional: Acutely Ill and Toxic
Head: Other (ET tube in place)
Eyes: Other (Scleral icterus noted)
Cardiovascular: Regular Rate and S1/S2; Negative S3/S4
Pulmonary: Clear and Coarse; Negative Wheezes or Rales
Gastrointestinal: Soft, Non Distended, Decreased Bowel Sounds, No Rebound and No Guarding
Genito-Urinary: Chávez and Clear Urine
Extremities: Edema; Negative Cyanosis or Erythema
Skin: Jaundice
Neurological: Other (Sedated)
Objective Data
Lab Data
Lab Results
01/03/25 04:16
01/03/25 07:55
PT 22.5 Sec (11.4-14.6) H 01/01/25 10:08
INR 1.96 01/01/25 10:08
APTT 39.4 Sec (23.4-35.0) H 12/31/24 19:39
Estimated Creat Clear 17 ml/min 01/03/25 04:16
Total Bilirubin 4.7 mg/dl (0.2-1.3) H 01/03/25 04:16
AST 257 U/L (17-59) H 01/03/25 04:16
ALT 184 U/L (0-50) H 01/03/25 04:16
Alkaline Phosphatase 110 U/L (38-126) 01/03/25 04:16
Most recent labs reviewed.
Micro Results:
01/01/25 11:36 Respiratory Culture - Final
Tracheal Aspirate Pseudomonas aeruginosa
Gram Stain - Final
12/31/24 20:09 Blood Culture - Preliminary
Blood/Venous No Growth in 48 hours- Final report to follow
12/31/24 19:39 Blood Culture - Preliminary
Blood/Venous No Growth in 48 hours- Final report to follow
12/28/24 12:27 Blood Culture - Final
Blood/Venous No Growth - Final Report
12/30/24 07:36 Blood Culture - Final
Blood/Venous Pseudomonas aeruginosa
Gram Stain - Final
Imaging:
12/30/2024 Duplex ultrasound lower extremity: there is an occlusive thrombus within the right gastrocnemius vein in the calf. There is spontaneous phasic flow with compressibility in the right common femoral, femoral and popliteal veins.
Care Review
Plan reviewed with: Physician (Critical Care) and Other (Clinical pharmacist)
--- NOTE | 2025-01-03 09:00 | PTCARENOTE ---
Rec'd pt at 0730 resting in bed. Pt unresponsive to verbal or tactile stimuli. MOSHE at 3 mm. Does not move extremities. Does have a + Cough and weak gag and will tend to suck on oral swabs with oral care. Skin is sl icteric wm and dry. Temp 98.1 via
thermistor mcmahon. Pt with multiple areas of bruising on arms and chest. L arm with + 3 edema tends to weep mod to large amts of serous fluid. Silicone border foam dressings intact on sacrum as well as L arm and R chest. Rec'd pt intubated. #8 ett
intact 24 cm nora R side of the mouth. Does have some old dried blood with oral care. Suctioned for small amt of whitish secretions. BS are mostly clear ant but post coarse rhonchi on the R side and L side is decreased and tubular. Vent settings
ASC 70%, Peep 5, Fio2 40%. Rates anywhere from 12-30 but mostly 15-22. Tv 112-530. PP 13. Monitor VPaced. + murmur. R radial a line intact-site wnl. Zeroed and recalibrated. Congruent with cuff Bp. Waveform as documented. Rec'd pt on IV Double
concentrated Levophed at 16 mcg and Vasopressin 0.03 units/min both infusing via R arm TL picc. KH SCD In place L leg. Abd is soft with + BS. Pt incont of small to mod amt of dk rachna liquid stool. R nare feeding tube intact 75 cm nora. 10 mls of
brown secretions aspirated . Meds given. Thermistor mcmahon in place for yellow urine. CHG bath given. Mouth and mcmahon care given. Calazime to sacrum- blanchable red. Turned and repositioned. S/P hyperkalemia protocol glucose and K+ checks completeda
t 0800. Glucose 241. K+ 5.3-will updated .
--- NOTE | 2025-01-03 09:47 | W.PN.CD ---
Today's Communication / Plan
-
Patient remains on 2 pressors continue to wean as tolerated.
Slow downward trend of hemoglobin over the last 3 days now 7.7 consider additional unit of PRBC
Will check follow-up echocardiogram considering the continued need for pressors.
Impression / Plan
-
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
with weakness and recurrent BRBPR. Cardiology consulted for concern for acute on chronic HFrEF.
[facility] Former: [facility] ([facility])
Patient with multiple complex issues including DVT, Pseudomonas bacteremia with possible to culture 12/30/2024. There was discussion regarding IVC filter but not placed due to bacteremia. Patient was placed on Eliquis and has had issues with GI
bleeding and had decreased level of responsiveness requiring intubation. Patient currently in ICU. Patient's received PRBCs and also pressor support.
.
Hypotension. Likely multifactorial. Patient with GI bleed bleeding, bacteremia also has underlying cardiomyopathy.
- Continue to treat GI bleeding, PRBC, IV fluid
- Patient remains on 2 pressors. Continue to wean as tolerated.
- Additional treatment of bacteremia with antibiotics as directed by ID.
- Per nursing patient has received a total of 3 units of PRBCs as well as unit of FFP this admission.
.
GI bleeding. Patient had a acute patient had issues with acute bleeding 12/31 - 01/01/2025. Issues have continued to be assessed.
GI performed EGD and flex sig. Apparently there is still some areas of oozing that were treated. Full report still pending. Hemoglobin with slow trend down since 01/01/2025 8.5 down to 7.7. Consider giving unit of PRBCs
.
VDRF
- Per notes. Intubated for decreased level of responsiveness. Chest x-ray with left-sided effusion and atelectasis
- Additional management as directed by pulmonary/critical care
-Chest x-ray with persistent effusion and atelectasis versus consolidation.
.
HFrEF/ICM - EF 35%. acute on chronic earlier this admission and then felt to be better compensated from a heart failure standpoint but then patient developed issues with GI bleeding with decreased level of responsiveness and required intubation.
- Weight is lowest on record here. suspect he has protein-calorie malnutrition from HFrEF and cirrhosis
-Continue to monitor for evidence of decompensated heart failure as patient receives additional fluid and PRBCs for management of GI bleed.
- Patient has ICD
MARIA DOLORES on CKD
-Creatinine up to 2.5. Nephrology following. Continue treatment of GI bleeding and optimization of hemodynamics.
Anasarca
Rectal bleeding, Received 1 unit PRBC 12/26/2024 and angiectasias in the rectum treated by GI, .
Patient with recurrent GI bleeding as noted above
.
h/o VT and VF treated by his MDT BiV ICD, last ICD gen change 2020
- No recent VT/VF by device check 12/28/2024, but recently off Amiodarone
- MDT ICD in place, no recent discharges. Device interrogation 12/28 with no recurrent VT or NSVT
Complete heart block, pacer dependent, biv device in place
CAD - s/p CABG, stable w/o angina,continue ASA
Cirrhosis w/ Hx of hepatic encephalopathy
Subjective: rectal bleeding has reoccurred; he is feeling frustrated
Data:
- TTE 11/12/2024: LVEF 35%, inferior and anteroseptal hypokinesis, normal RV, mild AAS, mild/mod TR, PASP 33 mmHg
Physical Exam
Vital Signs/Labs
Vital Signs
Temp Pulse Resp BP Pulse Ox
98 F 79 15 107/44 99
01/03/25 08:00 01/03/25 09:30 01/03/25 09:30 01/03/25 08:08 01/03/25 09:30
01/02/25 01/03/25 01/04/25
05:59 06:59 06:59
Actual Weight 93 kg 93 kg
01/03/25 04:16
01/03/25 07:55
PT 22.5 Sec (11.4-14.6) H 01/01/25 10:08
INR 1.96 01/01/25 10:08
APTT 39.4 Sec (23.4-35.0) H 12/31/24 19:39
Magnesium 2.4 mg/dl (1.6-2.3) H 12/29/24 04:59
Triglycerides Cancelled 01/02/25 09:36
12/26/24
11:15
Eug-F-Nadxebtnxci Pept 3170
LAB Results
01/01/25 01/01/25 01/01/25
10:30 15:55 16:30
Troponin I Cancelled 0.093 H* Cancelled
01/01/25 01/01/25 01/02/25
22:30 22:34 04:20
Troponin I Cancelled 0.097 H* 0.112 H*
Physical Exam
Constitutional: No acute distress
EENT: Anicteric
Cardiovascular: Rhythm & rate is regular and Systolic murmur present
Respiratory: Wheeze Absent and Other (Coarse vented breath sounds)
GI: Soft
Neuro/Psych: Alert and Oriented
Data Reviewed
-
Date of Service: January 03, 2025
Medical Decision Making: Reviewed Test Results
Echo: Report Reviewed by me
Medical Tests (PFT, Pathology etc): Report Reviewed by me
--- NOTE | 2025-01-03 10:12 | W.PN.NEPH.PH ---
Today's Communication / Plan
-
add 25 g albumin q 8
insulin gtt
Assessment/Plan
-
Assessment
MARIA DOLORES (B/L cr 1.9 )
hyponatremia
Anemia
Hypokalemia
pancytopenia
HFrEF 35% with Moderate TR
GI bleed
cirrhosis
left pleural effusion
mild ascites
Plan
hold diuretics today
follow BMP
follow hgb
prognosis is poor
d/w . likely MARIA DOLORES is from contrast + decompensated liver disease with GIB. unfortunately, he is not a candidate for dialysis. She understands this.
add 25 g albumin q 8
agree insulin gtt
critical care time 31 minutes
-
-
Date of Service: January 03, 2025
CC / HPI / ROS
-
Chief Complaint:
MARIA DOLORES
History of Present Illness:
critically ill in ICU on pressors
now on vent
Hgb down to 7.9
s/p CTA 12/31 without active bleed
MARIA DOLORES/Cr up at 2.9>3.8
sodium up at 136
K up to 5.4
Review of Systems:
intubated sedated
Labs
-
Labs:
WBC 26.8 10^3/uL (4.8-10.8) H 01/03/25 04:16
RBC 2.42 10^6/uL (4.70-6.10) L 01/03/25 04:16
Hgb 7.7 g/dL (13.0-18.0) L 01/03/25 04:16
Hct 23.6 % (39.0-52.0) L 01/03/25 04:16
Plt Count 133 10^3/uL (130-400) 01/03/25 04:16
eGFR 15.72 01/03/25 04:16
Vdd-D-Cxcoafoldcr Pept 3170 pg/ml 12/26/24 11:15
Physical Exam
-
Vital Signs:
Vital Signs
Temp Pulse Resp BP Pulse Ox
98 F 79 15 107/44 99
01/03/25 08:00 01/03/25 09:30 01/03/25 09:30 01/03/25 08:08 01/03/25 09:58
--- NOTE | 2025-01-03 10:15 | PTCARENOTE ---
Vent changed to AC settings AC 14, tv 450, peep 5 per MD order. TV 460-480. Sats are 98-100%.
--- NOTE | 2025-01-03 10:20 | PTCARENOTE ---
Family at the bedside and updated. Labs sent as ordered. Currently Levophed at 14 mcg-will wean as BP permits. Lynne Ruff and Clay in to see pt and updated family. Currently US of the R LE completed.
[2025-01-03] MEDS: FLEXBUMIN 100 IV ×2 (10:50→18:31)
[2025-01-03 10:52] LABS: Glucose 214 mg/dl (70-99)
--- NOTE | 2025-01-03 11:00 | PTCARENOTE ---
25% Albumin hung via R TL picc. . Neuro- pupils still briskly react and does have corneals and a cough and gag. Did note some decerebrate posturing with his arms with stimulation and nailbed pressure. Toes on the L flair up to plantar stroke and sl
movement of the R foot to plantar stroke. Will update Dr. Tavares. No other changes.
[2025-01-03 11:07] LABS: Troponin I 0.208 ng/ml
[2025-01-03 11:56] LABS: ALT (SGPT) 180 U/L (0-50); AST (SGOT) 231 U/L (17-59); Albumin 2.2 g/dl (3.5-5.0); Alkaline Phosphatase 103 U/L (38-126); Calcium 8.1 mg/dl (8.4-10.2); Carbon Dioxide 20 mmol/L (22-30); Chloride 95 mmol/L (98-107); Potassium 5.2 mmol/L (3.5-5.1); Sodium 125 mmol/L (135-145); Total Protein 5.1 g/dl (6.3-8.2)
--- NOTE | 2025-01-03 12:00 | CHAP ---
Father Stevenson Moon of [facility] in [place] gave Last Rites to Mr. Rodriguez at his family's request. Exact time uncertain.
--- NOTE | 2025-01-03 12:03 | WOUNDNOTE ---
SACRUM AND LOWER BACK
[2025-01-03 12:06] LABS: Glucose - Point of Care 262 mg/dl (70-99)
--- NOTE | 2025-01-03 12:06 | WOUNDNOTE ---
R POSTERIOR MEDIAL FOREARM
[2025-01-03] MEDS: FLUSH (NSS) 1 FLUSH IV ×2 (12:07→17:54)
--- NOTE | 2025-01-03 12:07 | WOUNDNOTE ---
L MEDIAL LOWER ARM
[2025-01-03 12:08] LABS: Blood Urea Nitrogen 128 mg/dl (9-20); Estimated Creatinine Clearance 18 ml/min; eGFR 16.23
--- NOTE | 2025-01-03 12:10 | WOUNDNOTE ---
[facility] RN note: Patient admitted with
See H&P for complete history.
PMH: 74yoM with a history of coronary artery disease s/p CABG, CHF with EF of 35% and AICD, peripheral artery disease, cirrhosis, insulin-dependent type 2 diabetes, hyperlipidemia presenting via EMS for evaluation of rectal bleeding.
Wound Location and type/assessment: Patient admitted with: Stage 2 PI on sacrum which was confirmed by patient's at bedside. She reports 'His sore on his bottom was painful and we used Zinc barrier cream.' Now Sacrum open at center with dark
maroon discolored at base and skin surrounding. Suspect evolving DTI, scant drainage, silicone foam in use. B/L arm tiny skin tears weeping large amts of serous fluid. R knee with shallow abrasion. Heels intact. L lateral lower leg with healed
abrasion, no open wound, silicone foam in use under SCD.
Appetite: NPO.
Pressure redistribution devices in place: On [facility] air bed.
Plan: Local wound care applied. Sacral silicone foam changed, repositioned patient onto R semi side lying position with assist of nursing. Pillows under arms and under calves. Pressure ulcer prevention measures reviewed with at bedside and made
aware that sacral ulcer may open up and be a larger ulcer underneath. states she understands. Despite preventative measures suspect wound will become worse, due to comorbidities and poor nutrition. Will confirm orders with hospitalist and
updated nurse. Updated care plan and will follow as needed.
Note to case management of equipment requested for discharge: Air mattress and offloading cushion
Recommend follow up at wound care center upon discharge.
[2025-01-03] MEDS: STERILE WATER FOR INJECTION IV (12:12)
[2025-01-03] MEDS: NOVOLOG FLEXPEN-HIGH RESISTANCE SC (12:30)
[2025-01-03] MEDS: NOVOLOG FLEXPEN SC (12:30)
[2025-01-03] MEDS: NOVOLIN R INSULIN INFUSION 100 IV (12:36)
--- NOTE | 2025-01-03 12:40 | PTCARENOTE ---
Overall assessment is unchanged. MOSHE at 3 mm. Still no eye opening to verbal or tactile stimuli but continues to try to suck on oral swabs. Respirs- tolerating AC settings TV changed to 500 ml as ordered. At times rides with the vent at 14-15 and
intermittently with stack his breaths but not constant. Suctioned for whitish secretions- small amt. ETT retaped in the center of the mouth at the 24 cm nora. VS as documented. Weaning Levophed at BP permits keeping syst >90. Albumin dose completed.
Awaiting tube feed recommendations and will start tube feeds. Bracelet And Brooch Maker updated. Per MD order Glycemic protocol initiated at 1240 - 5 units of Regular Insulin given as a bolus and gtt initiated at 4 units/hr. Infusing via R are TL PICC. Wound RN in
to see pt as documented. Pt incont of a mod amt of burgundy stool. Evelina/Skin care given. Repositioned. Family at the bedside.
[2025-01-03] MEDS: MERREM 60 MG IV (13:05)
--- NOTE | 2025-01-03 13:24 | PTCARENOTE ---
1320- Nepro tube feeds started at 10 ml/hr with 25 ml/hr water flush via R nare feeding tube. Merrem IV hung to run over 4 hrs via R arm TL picc. No other changes
[2025-01-03 13:52] LABS: Glucose - Point of Care 218 mg/dl (70-99)
--- NOTE | 2025-01-03 14:00 | PTCARENOTE ---
Tube Room Cashier in to see pt and deliver Last Rites (Sacrament of the Sick)
--- NOTE | 2025-01-03 14:02 | CARDSERVLU ---
Echocardiogram with Lumason completed after protocol screening completed. Allergies verified.
Patent IV site: __R upper Triple_lumen cath__
IV site flushed with 0.9% NaCl pre and post administration.
Diluted bolus method utilized to enhance visualization of ventricular das.
Total volume given: __3.5__ mL
Patient tolerated all procedures well without complications.
--- NOTE | 2025-01-03 14:02 | PN.DE.MGMTRT ---
Insulin Management
- -
01/03/2025: Diabetes Management Consult
74 year old male with complex PMH: HTN, HLD, ICM EF 35%, CAD s/p bypass surgery, h/o VT, ICD, Severe COPD, FEV1 33%, PAD s/p lower extremity stent/endarterectomy, Liver cirrhosis w/ascites, hepatic encephalopathy, thrombocytopenia, h/o prostate
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
Hospital course complicated by renal insufficiency, bacteremia, worsening hepatic encephalopathy with an ammonia level of 200, anemia requiring blood transfusion, and Hypotension requiring pressors, transferred to ICU requiring intubation 01/01/2025.
Pt remains critically ill, intubated and sedated, unable to interview, no family at bedside.
On stress dose steroids- Hydrocortisone 50mg Q6 hrs contributing to hyperglycemia.
Critical care glycemia protocol has been initiated. A1C 5.6%, Cr 3.7, eGFR 16.23.
Current glucose range 218 to 281, requiring 3-4 units of insulin infusion
Will continue insulin infusion for now and cont to follow.
Diabetes History
- -
Type of Diabetes: 2 requiring insulin
Pre-Admission Diabetes Regimen
01/03/25 01/03/25 01/03/25
04:16 10:12 10:14
Creatinine 3.8 H 3.7 H Cancelled
Lab Results
Hemoglobin A1c Cancelled 01/03/25 12:11
Insulin Pump Settings
IP Diabetes Regimen
01/02/25 01/02/25 01/02/25
17:49 18:09 23:28
Glucose
POC Glucose 223 H 228 H 227 H
01/03/25 01/03/25 01/03/25
04:16 06:04 07:09
Glucose 190 H
POC Glucose 321 H 281 H
01/03/25 01/03/25 01/03/25
07:53 10:12 10:14
Glucose 214 H Cancelled
POC Glucose 241 H
01/03/25 01/03/25
11:54 13:41
Glucose
POC Glucose 262 H 218 H
Patient Education
--- NOTE | 2025-01-03 14:30 | PTCARENOTE ---
Dr. Sharp updated on Burgundy stools- will monitor
--- NOTE | 2025-01-03 14:36 | W.PN.HOSP.TC ---
Today's Communication/Plan
-
Assessment / Plan
Assessment / Plan
Endotracheal intubated, NGT noted
With jaundice
Scleral Anicteric
MMM
No JVD
CTABL
RRR, S1/S2
Soft, NT, ND, BS+
Warm, Dry
Fanning toes when stimulated from sole side
Calm
#Hepatic encephalopathy
- Required intubation on 12/31/2024 due to worsening mental status, ammonia near 200
- Was transition from oral lactulose to lactulose via OGT with Xifaxan continued
- CT head without contrast without acuity, no signs of cerebral edema
- Will continue with lactulose and Xifaxan, no utility to trending NH4
- DHT placed today for lactulose administration, increased to 20 TID
- Monitor MSE, avoid sedating agents as able
- Goal of 3-4 BM daily
#Circulatory shock
#Pseudomonas bacteremia
- Likely septic shock; unclear source, question urinary versus pulmonary versus gut/translocation
- Resolved circulatory shock on 12/28. Blood cultures were taken on 12/28 after pressors were started overnight.
- 1 Cx obtained at that time which was negative, however second blood culture was not taken until 12/30 was +
- Was started on IV cefepime and infectious disease was consulted; repeat blood cultures obtained
- Became hypotensive when intubated, was started on Levophed for hemodynamic support
-ID changed cefepime to meropenem
- Continue Levophed and vasopressin with MAP goal >65, wean as able
- Continue with midodrine
- Follow repeat blood cultures
#VDRF
#Left-sided pleural effusion
- Was intubated evening of 12/31/2024 with encephalopathy
- Imaging showing large left pleural effusion with possibly some atelectasis
- Does have positive blood cultures with Pseudomonas, cannot rule out pneumonia
- Discussed with ICU, no need for diagnostic thoracentesis, will reassess Friday and consider Thora
- Wean FiO2 as able, daily SAT/SBT
- Trend ABG and daily CXR
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
#Anemia of chronic disease
- Received 3 unit of PRBC here and hemoglobin stabilized; had rebleeding on Eliquis
- Bleeding likely from radiation proctitis
- S/p flex sig on 12/27 with bleeding ectasias that received APC
- Upper endoscopy demonstrated angioectasias without bleeding the
- Now holding anticoagulation, most recent hemoglobin 7.9, currently on IV PPI BID
- GI following, may need additional endoscopy and intervention to radiation proctitis
#Oliguric MARIA DOLORES on CKD
#Cardiorenal physiology
#Hepatorenal syndrome (?)
- Baseline creatinine near 2, up to 3.1 here. Likely cardiorenal physiology with HFrEF and EF 35%.
- Metolazone discontinued; s/p IV Lasix, IV Lasix has since been discontinued due to shock
- Most recent creatinine 2.9; trend BMP, UOP, I's and O's, and daily weights.
- Continue with midodrine and levophed for MAP goal >65 mmHg.
- Holding IV Lasix and optimize hemodynamics
- Avoid nephrotoxins
- Poor candidate for HD
#RLE DVT
- Ultrasound positive for DVT; did not tolerate reinitiation of Eliquis with GI bleeding
- Discussed with IR about IVC filter however currently with positive blood cultures as above
- Will consider IVC filter once blood cultures negative x 48 hours, plan repeat US as well
- Order repeat US for tomorrow
#Elevated troponin
- Likely nonischemic myocardial injury secondary to shock and anemia in context of obstructive CAD
- Holding antiplatelet agents and anticoagulations due to bleeding, currently on statin
- Continue to trend troponin to peak, serial ECG, telemetry
#Liver cirrhosis C/B ascites, HE, thrombocytopenia
#Chronic transaminitis
- Question of amiodarone induced liver toxicity, recently was discontinued
- MELD 3.0 score of 30; correlating to 73% to 60 days survival
- Home regimen includes Lasix, lactulose + Xifaxan, midodrine
- Recently had therapeutic paracentesis, no signs of SBP
- Holding home diuretics as above, monitor for recurrence of ascites
#Hypervolemic hyponatremia
- improving with FR diet and holding home diuretic; fluid restriction down to 40 now
- Serum sodium back to 127; nephrology following ; s/p 1 dose of Samsca on 12/30/2024
- Most recent serum sodium 129, to trend BMP
- Monitor volume status, I's and O's, weight
- Consider repeat urine studies if worsened
#Acute on chronic HFrEF
#Ischemic cardiomyopathy
#CAD s/p CABG
- Last TTE with LVEF 35%, mild aortic stenosis, preserved RV function
- Not receiving GDMT due to chronic hypotension and renal insufficiency
- home Diuretic regimen includes Lasix 80 mg twice daily and metolazone 2.5 mg daily
- Diuretics currently on hold here; remains on aspirin and statin
- Continue to trend I's and O's, daily weights
#History of VT
-Previous regimen included amiodarone which was discontinued due to likely associated liver disease
-No longer on any antiarrhythmic therapy, including beta-hemant or CCB
-Has AICD currently in place
#COPD
- Likely GOLD A-B; Home regimen includes Trelegy equivalent with Advair and Spiriva
- No recent pulmonary function test available to review
- No signs of COPD exacerbation on home regimen
#IDDM-2
- Home regimen previously included metformin; insulin lispro 5 units with meals
- Metformin was discontinued; remains on ISS alone
- Blood glucose goal 140-180
#H/O prostate cancer S/P XRT C/B radiation proctitis
#PAD s/p stent and endarterectomy
- Home regimen includes aspirin, not currently on statin per our records
- Will resume nightly statin at atorvastatin 20 mg for now
- Follow-up as OP and uptitrate as needed, LDL goal <70
# Stage II pressure injury on sacrum; present on admission
DVT prophylaxis: SCDs
GI prophylaxis: IV PPI
Diet: NPO for now
CODE STATUS: Full code
Disposition: TBD
Discussed with ICU
Prognosis is guarded to poor
Anticipated Discharge: > 48 hours
Subjective/Interval History
-
Date of Service: January 03, 2025
Seen and examined. Remains intubated on pressors. and son at bedside provided full update
Objective Data
-
Labs:
Laboratory Results
01/03/25 01/03/25 01/03/25
04:16 07:55 10:12
WBC 26.8 H
Hgb 7.7 L
Hct 23.6 L
Plt Count 133
HCO3 20.2 L
Sodium 126 L 125 L
Potassium 5.4 H 5.3 H 5.2 H
Chloride 95 L 95 L
Carbon Dioxide 22 20 L
BUN 126 H* 128 H*
Creatinine 3.8 H 3.7 H
Glucose 190 H 214 H
Calcium 8.0 L 8.1 L
Total Bilirubin 4.7 H 4.4 H
AST 257 H 231 H
ALT 184 H 180 H
Alkaline Phosphatase 110 103
01/03/25
10:14
WBC
Hgb
Hct
Plt Count
HCO3
Sodium Cancelled
Potassium Cancelled
Chloride Cancelled
Carbon Dioxide Cancelled
BUN Cancelled
Creatinine Cancelled
Glucose Cancelled
Calcium Cancelled
Total Bilirubin Cancelled
AST Cancelled
ALT Cancelled
Alkaline Phosphatase Cancelled
Vital Signs:
Vital Signs
Temp Pulse Resp BP Pulse Ox
97.8 F 80 16 115/48 100
01/03/25 13:00 01/03/25 13:45 01/03/25 13:45 01/03/25 12:48 01/03/25 13:45
I&O
01/02/25 01/03/25 01/04/25
05:59 06:59 06:59
Intake Total 1987.5 / 2064.0 1652.5 / 1695.3 518.6 / 518.6
Output Total 656 / 676 537 / 537 235 / 235
Balance 1331.5 / 1388.0 1115.5 / 1158.3 283.6 / 283.6
[2025-01-03 14:51] LABS: Glucose - Point of Care 204 mg/dl (70-99)
[2025-01-03 14:56] LABS: Glycohemoglobin (HgbA1c) 5.2 % (4.0-5.9)
--- NOTE | 2025-01-03 15:18 | RESPNOTE ---
late entry:
approx 10am: icu rounds underway- discussed Mr. Rodriguez's vent settings/potential wean with Dr. Bobo % team. patient on ASV mode 70% +5 40%, changed back to AC settings of AC 14-500-5-40% to rest, no wean today.
[2025-01-03 15:56] LABS: Glucose - Point of Care 169 mg/dl (70-99)
--- NOTE | 2025-01-03 16:12 | CM ---
Intubated, worsening renal function, following HGB, IV/Lasix/Meropenem/Solu-Cortef. Discharge POC: Prior to ICU transfer therapy recommended HH. Was on service with [facility] and referral previously forwarded. Will follow for updated therapy evals.
--- NOTE | 2025-01-03 16:30 | PTCARENOTE ---
Assessment is unchanged. VS as documented. Currently on Levophed at 11 mcg. Glycemic protocol continues. Merrem antibiotic infusing over 4 hrs all via R TL PICC. Suctioned for whitish secretions via ETT. Will intermittently add rate and volume on
the vent. Tolerating tube feeds. Turned and repositioned. Skin care given. Arms- mostly L arm continues to weep serous fluid.
[2025-01-03 16:58] LABS: Glucose - Point of Care 170 mg/dl (70-99)
[2025-01-03 17:58] LABS: Glucose - Point of Care 161 mg/dl (70-99)
--- NOTE | 2025-01-03 18:15 | PTCARENOTE ---
Assessment unchanged. Throughout shift pt has been passing a large amt of foul smelling flatus. No additional stool currently. Troponin sent. Continues with glycemic protocol. VS as documented. Levophed remains at 11 mcg with syst BP in the
90-100's. Family at the bedside and updated.
--- NOTE | 2025-01-03 18:15 | PTCARENOTE ---
Repositioned. Troponin sent. No changes in assessment
[2025-01-03 18:23] LABS: Troponin I 0.194 ng/ml
[2025-01-03 19:00] LABS: Glucose - Point of Care 161 mg/dl (70-99)
--- NOTE | 2025-01-03 20:00 | PTCARENOTE ---
Assumed care at 1900. On levo + vasopressin gtts. Patient unresponsive to deep pain. See worklist for nursing assessment details. On the vent AC 14/500/40%/5. ET tube # 8, 24cm at the lip. Dobhoff to right nare, Tube feed advanced to 20ml/hr with 25
water flush and patient tolerating. Continues with loose burgundy stool. CHG bath and mcmahon care completed.
[2025-01-03 21:02] LABS: Glucose - Point of Care 164 mg/dl (70-99)
[2025-01-03] MEDS: SUBLIMAZE 50 MCG IV ×2 (21:47→22:31)
[2025-01-03] MEDS: ROWASA, CANASA SUPPOSITORY 1000 MG RECTAL (22:26)
[2025-01-03 23:10] LABS: Glucose - Point of Care 156 mg/dl (70-99)
[2025-01-04] VITALS (13 sets, daily range): BP systolic 112–130; BP diastolic 35–47; BMI 30.1
--- NOTE | 2025-01-04 | PTCARENOTE ---
No changes from previous assessment. Patient stacking breaths on the vent and alarming for high minute volume/tidal volume. PRN fentanyl given for sedation x2 and respiratory made aware and adjusted alarms. Fecal pouch applied for continuous liquid
stools.
[2025-01-04] MEDS: MERREM 60 MG IV ×2 (00:13→12:09)
[2025-01-04 01:17] LABS: Glucose - Point of Care 142 mg/dl (70-99)
[2025-01-04] MEDS: FLEXBUMIN 100 IV (02:38)
[2025-01-04 03:53] LABS: B.E. -3.3 mmol/L; HCO3 20.8 mmol/L (21-28); O2 Saturation % 98.6 % (94-98); PCO2 32 mmHg (35-48); PO2 139 mmHg (83-108); Potassium 5.0 mMOL/L (3.5-5.1); Sodium 129 mMOL/L (136-145)
[2025-01-04 03:57] LABS: Glucose - Point of Care 138 mg/dl (70-99)
[2025-01-04 04:30] LABS: Ammonia 71 umol/L (9-30)
[2025-01-04 04:38] LABS: Hematocrit 16.2 % (39.0-52.0); Hemoglobin 5.2 g/dL (13.0-18.0); Mean Corp Hgb Conc. 32.1 g/dL (33.0-37.0); Mean Corpuscular Volume 100.0 fL (80.0-94.0); Red Cell Dist. Width 23.1 % (11.5-14.5)
[2025-01-04 04:43] LABS: Blood Urea Nitrogen 114 mg/dl (9-20); Calcium 6.4 mg/dl (8.4-10.2); Carbon Dioxide 16 mmol/L (22-30); Chloride 107 mmol/L (98-107); Estimated Creatinine Clearance 23 ml/min; Glucose 103 mg/dl (70-99); Magnesium 2.3 mg/dl (1.6-2.3); Potassium 3.8 mmol/L (3.5-5.1); Sodium 134 mmol/L (135-145); Troponin I 0.152 ng/ml; eGFR 22.67
[2025-01-04 05:07] LABS: Glucose - Point of Care 184 mg/dl (70-99)
[2025-01-04 05:08] LABS: Platelet Count 63 10^3/uL (130-400)
[2025-01-04] MEDS: SOLU-CORTEF 50 MG IV ×3 (05:12→17:53)
[2025-01-04] MEDS: CALCIUM GLUCONATE 130 MG IV (05:12)
[2025-01-04 05:32] LABS: INR 2.14; PT 24.0 Sec (11.4-14.6)
[2025-01-04 05:33] LABS: APTT 38.5 Sec (23.4-35.0); Fibrinogen 193 MG/DL (199-459)
[2025-01-04 05:43] LABS: D-Dimer 10.94 ug/mlFEU (0.00-0.50)
--- NOTE | 2025-01-04 05:45 | PTCARENOTE ---
No change from previous assessment. Vasopressin order changed from 0.03 to 0.02 per ICU provider to attempt to wean off. Fecal pouch replaced. TF rate increased to 30ml/hr with 25 hr flush. Call received from lab with critical hgb of 5.2 hct 16.2.
call center coordinator provider made aware and ordered 2 units PRBC along with new type + screen and coags.
[2025-01-04 06:14] LABS: Glucose - Point of Care 153 mg/dl (70-99)
--- NOTE | 2025-01-04 07:26 | W.PN.INTV ---
Today's Communication / Plan
Recommendations
Follow hemoglobin
Transfuse
Antibiotics
Ventilator
Wean pressors
Neurology evaluation
Assessment
-
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
kidney disease baseline creatinine 1.9, history of ischemic cardiomyopathy with bypass surgery EF 35%, admitted 12/26/2024 for rectal bleeding. Hospital course complicated by renal insufficiency, bacteremia, worsening hepatic encephalopathy,
transferred to ICU requiring intubation 01/01/2025
VDRF, intubated for airway protection, mental status changes
01/01/2025
Hepatic encephalopathy, ammonia level 200
Acute lower GI bleed, secondary to radiation proctitis
Requiring transfusion
Left upper extremity swelling with superficial thrombophlebitis
Right lower extremity DVT
Eliquis therapy 12/03/2024, now discontinued
Liver cirrhosis
Ascites, hepatic encephalopathy, thrombocytopenia
Chronic transaminitis
Acute renal insufficiency, baseline creatinine 1.9, worsening
Hypotension requiring pressors
Suspect multifactorial (bleeding, renal failure, liver failure, cardiomyopathy)
Conditions present prior to admission:
Hypertension/hyperlipidemia
Ischemic cardiomyopathy, EF 35%
History of VT, ICD
Amiodarone therapy in the past
Coronary disease bypass surgery
Insulin-dependent diabetes
Severe COPD, FEV1 33%
Recurrent left pleural effusion with left lower lobe consolidation/atelectasis
History of prostate cancer with radiation therapy
Peripheral arterial disease status post lower extremity stent/endarterectomy
Plan/recommendations
Remains critically ill sedated on a ventilator on pressors
Ventilator settings reviewed
ABGs and VBG's reviewed
Ventilator adjusted
Spontaneous breathing trial-not a candidate at this time
Nebulizers if needed-currently not bronchospastic-currently on DuoNebs and Pulmicort
VAP prevention protocol
Aspiration precautions
Severe COPD at baseline-FEV1 35% predicted
Follow x-ray
Mental status has not improved despite improvement in ammonia level
Nursing reporting some decerebrate posturing
Recommend neurology evaluation
Follow hemoglobin-5.2 this a.m.
Transfuse as needed
PPI
Gastroenterology following-reviewed case with them
Replace electrolytes including calcium
Norepinephrine and vasopressin continues-attempt to wean
Stress dose steroids-hydrocortisone continue
Follow lactate
Lactulose intensified
Follow ammonia level-improved without any change in his mental status
Recent paracentesis without evidence of SBP plan for bedside endoscopy today
Chronic left pleuroparenchymal process is noted
Required outpatient thoracenteses
Tracheal aspirate gram-negative bacilli
Blood culture Pseudomonas
Small left pleural effusion
Will consider left thoracentesis-depending on clinical course
Monitor renal rccmkkpy-ojlwatiib-fvxckts kidney disease stage III with baseline serum creatinine 1.9, now with GI bleed and received dye
Nephrology following-some improvement in creatinine
Bicarbonate as needed
Monitor cardiac status closely
Patient with known ischemic cardiomyopathy-EF 35%
Aspirin on hold due to rectal bleeding
ICD in place
Cardiology following
History of Rt lower extremity DVT and left upper extremity thrombophlebitis
IVC filter considered
Remains off anticoagulation given bleeding-INR elevated-suspect a component of DIC and auto anticoagulated
Cultures reviewed
Blood culture 03/06-Pseudomonas
Sputum culture-Pseudomonas
Infectious disease following
Antibiotics per infectious disease
Monitor blood sugar
Insulin drip per protocol
Diabetic nurse practitioner
DVT prophylaxis: Mechanical on the left. rt DVT noted
GI prophylaxis: Protonix
Nutrition-begin tube feeds 01/03/[address] Tavares updated son and on multidisciplinary rounds 01/03/2025 and again on 01/04/2025
Critical care statement: A total of 55 minutes of critical care time was provided for this patient today. This includes management of unstable vital signs, evaluation of the patient at bedside, reviewing the patient�s pertinent medical records
including radiographs, microbiology, laboratory evaluations, and��discussion with primary team, consultants, pharmacy, nutrition, physical therapy, case management, charge nurse, critical care nursing, and respiratory therapy.
Subjective Dataa
Subjective Data
Date of Service:
Date of Service: January 04, 2025
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
Subjective:
Hemoglobin continues to drop, required transfusion, mental status has not improved, some decerebrate movements,, no increased secretions,
Review of Systems
General: Unobtainable - Pat Unresp
Objective Data
Data Reviewed
Vital Signs / I&O / Oxygen:
Vital Signs
Temp Pulse Resp BP Pulse Ox
98.1 F 84 17 116/36 99
01/04/25 07:20 01/04/25 06:49 01/04/25 06:49 01/04/25 06:49 01/04/25 06:49
Intake and Output
01/03/25 01/04/25 01/05/25
06:59 06:59 06:59
Intake Total 1652.5 / 1695.3 2206.6 / 2206.6
Output Total 537 / 537 875 / 875
Balance 1115.5 / 1158.3 1331.6 / 1331.6
SaO2 [ASV] 98
SaO2 [A/C] 99
SaO2 99
Nasal Cannula flow liters per 2
minute
Physical Exam
General: Respiratory Distress (n), Comfortable and Other (Upper extremity midline, A-line)
HEENT: Normocephalic, Anicteric and Moist Mucous Membranes
Cardiovascular: Regular Rhythm, Murmur (2/6 systolic murmur) and Rub (n)
Respiratory: Wheeze (n), Crackles (Few basilar), Rhonchi (n), Non-Labored Respirations, Accessory Resp Muscle Use (n), Stridor (n) and ET Tube
GI: Soft, Distended and Non Tender
Neurology: Lethargic (Sedated but does open eyes. Does not follow commands)
Skin: Warm, Good Color, Cyanosis (n), Jaundice (n), Rash (n) and Bruising (Few)
Labs/Micro/Reports
Lab Data
01/04/25 03:43
01/04/25 03:43
Laboratory Results
01/04/25 01/04/25
03:43 04:55
PT 24.0 H
INR 2.14
APTT 38.5 H
pH 7.42
pCO2 32 L
pO2 139 H
HCO3 20.8 L
O2 Delivery Level
Microbiology
12/31/24 20:09 Blood/Venous Blood Culture - Preliminary
No Growth in 72 hours- Final report to follow
12/31/24 19:39 Blood/Venous Blood Culture - Preliminary
No Growth in 72 hours- Final report to follow
01/01/25 11:36 Tracheal Aspirate Respiratory Culture - Final
Pseudomonas aeruginosa
01/01/25 11:36 Tracheal Aspirate Gram Stain - Final
12/28/24 12:27 Blood/Venous Blood Culture - Final
No Growth - Final Report
12/30/24 07:36 Blood/Venous Blood Culture - Final
Pseudomonas aeruginosa
12/30/24 07:36 Blood/Venous Gram Stain - Final
[2025-01-04] MEDS: PULMICORT 0.5 MG INH ×2 (07:33→20:39)
[2025-01-04] MEDS: DUPHALAC/CHRONULAC 20 GRAMS TUBE ×2 (07:37→11:52)
[2025-01-04] MEDS: XIFAXAN 550 MG TUBE ×2 (07:37→19:58)
[2025-01-04] MEDS: NSS (PRESERVATIVE FREE) 10 ML IV ×2 (07:38→19:58)
[2025-01-04] MEDS: NOVOLIN R INSULIN INFUSION 100 IV (07:38)
[2025-01-04] MEDS: PROTONIX IV 40 MG IV ×2 (07:38→19:58)
[2025-01-04 08:14] LABS: Glucose - Point of Care 161 mg/dl (70-99)
--- NOTE | 2025-01-04 09:24 | PTCARENOTE ---
First unit of PRBCs completed w/o issues. Second unit started now. VSS.
--- NOTE | 2025-01-04 09:30 | W.PN.ID1 ---
Date of Service
Date of Service: January 04, 2025
Today's Communication
Continue antibiotics.
Assessment / Plan
Pseudomonas bacteremia
- History of Pseudomonas recovered from lungs
- Pseudomonas again recovered on 01/01 from the lungs.
DVT (gastrocnemius vein)
GI bleed
Anemia
Hepatic encephalopathy
Hyponatremia
Renal insufficiency; worsening
Elevated LFTs; trending up
DM
HLD
HTN
CAD; Hx AL
PAD
Hx prostate CA
V. tach
CHF with depressed EF
COPD
Recommendations:
Repeat blood cultures show no growth x 72 hours.
Cefepime changed to meropenem 01/03/2025 over concerns for encephalopathy
Creatinine mildly improved today. Est CrCl = 23
With blood cultures negative, now safer to insert IVC filter if felt needed.
Continue with meropenem (day #5 abx)
Follow white count and temperature curve.
Continue with supportive measures.
Patient critically ill with hypoxemic respiratory failure in ICU.
[place] extremely guarded at this time
����������������������������������������������������������
Chief Complaint
-: Leukocytosis, Clinical Sepsis, Bacteremia and Other (Hepatic encephalopathy)
Subjective / Review of Systems
Patient seen and examined. Remains on vent at this time. Remains on pressor therapy.
Vital Signs / Physical Exam
Vital Signs
Vital Signs
Temp Pulse Resp BP Pulse Ox
97.8 F 79 17 128/46 100
01/04/25 09:19 01/04/25 09:19 01/04/25 09:19 01/04/25 09:19 01/04/25 09:19
Physical Exam
Constitutional: Acutely Ill and Toxic
Head: Other (ET tube in place. Nasal Dobbhoff in place.)
Eyes: Other (Scleral icterus noted)
Cardiovascular: Regular Rate and S1/S2; Negative S3/S4
Pulmonary: Clear and Coarse; Negative Wheezes or Rales
Gastrointestinal: Soft, Non Distended, Decreased Bowel Sounds, No Rebound and No Guarding
Genito-Urinary: Chávez and Clear Urine
Extremities: Edema; Negative Cyanosis or Erythema
Skin: Jaundice
Neurological: Other (Sedated)
Objective Data
Lab Data
Lab Results
01/04/25 03:43
01/04/25 03:43
PT 24.0 Sec (11.4-14.6) H 01/04/25 04:55
INR 2.14 01/04/25 04:55
APTT 38.5 Sec (23.4-35.0) H 01/04/25 04:55
Estimated Creat Clear 23 ml/min 01/04/25 03:43
Total Bilirubin Cancelled 01/03/25 10:14
AST Cancelled 01/03/25 10:14
ALT Cancelled 01/03/25 10:14
Alkaline Phosphatase Cancelled 01/03/25 10:14
Most recent labs reviewed.
Micro Results:
12/31/24 20:09 Blood Culture - Preliminary
Blood/Venous No Growth in 72 hours- Final report to follow
12/31/24 19:39 Blood Culture - Preliminary
Blood/Venous No Growth in 72 hours- Final report to follow
01/01/25 11:36 Respiratory Culture - Final
Tracheal Aspirate Pseudomonas aeruginosa
Gram Stain - Final
12/28/24 12:27 Blood Culture - Final
Blood/Venous No Growth - Final Report
12/30/24 07:36 Blood Culture - Final
Blood/Venous Pseudomonas aeruginosa
Gram Stain - Final
Imaging:
12/30/2024 Duplex ultrasound lower extremity: there is an occlusive thrombus within the right gastrocnemius vein in the calf. There is spontaneous phasic flow with compressibility in the right common femoral, femoral and popliteal veins.
--- NOTE | 2025-01-04 09:33 | PN.DE.MGMTRT ---
Insulin Management
- -
01/04/2025: Diabetes Management Consult Follow up
74 year old male admitted 12/26 with acute on chronic rectal bleeding diabetes management consult 01/03. PMH: HTN, HLD, ICM EF 35%, CAD s/p bypass surgery, h/o VT, ICD, Severe COPD, FEV1 33%, PAD s/p lower extremity stent/endarterectomy, Liver
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 A1C 5.6%, Cr 3.7, eGFR 16.23.
Hospital course complicated by renal insufficiency, bacteremia, worsening hepatic encephalopathy with an ammonia level of 200, anemia requiring blood transfusion, and Hypotension requiring pressors, transferred to ICU requiring intubation 01/01/2025.
Pt remains critically ill, intubated and sedated, unable to interview, no family at bedside.
On stress dose steroids- Hydrocortisone 50mg Q6 hrs contributing to hyperglycemia.
Critical care glycemic protocol insulin infusion has been continued overnight.
Current glucose range 218 to 281, requiring 3.5 to 5 units of insulin per hour.
Discussed with nurse.
Will continue insulin infusion for now and cont to follow.
Diabetes History
- -
Type of Diabetes: 2 requiring insulin
Pre-Admission Diabetes Regimen
01/03/25 01/03/25 01/04/25
10:12 10:14 03:43
Creatinine 3.7 H Cancelled 2.8 H
Lab Results
Hemoglobin A1c Cancelled 01/03/25 12:11
Insulin Pump Settings
IP Diabetes Regimen
01/03/25 01/03/25 01/03/25
10:12 10:14 11:54
Glucose 214 H Cancelled
POC Glucose 262 H
01/03/25 01/03/25 01/03/25
13:41 14:40 15:45
Glucose
POC Glucose 218 H 204 H 169 H
01/03/25 01/03/25 01/03/25
16:47 17:47 18:45
Glucose
POC Glucose 170 H 161 H 161 H
01/03/25 01/03/25 01/04/25
20:50 22:58 01:07
Glucose
POC Glucose 164 H 156 H 142 H
01/04/25 01/04/25 01/04/25
03:43 03:46 04:55
Glucose 103 H
POC Glucose 138 H 184 H
01/04/25 01/04/25
06:03 08:03
Glucose
POC Glucose 153 H 161 H
Patient Education
[2025-01-04] MEDS: LEVOPHED 258 MG IV (10:21)
[2025-01-04 10:30] LABS: Glucose - Point of Care 198 mg/dl (70-99)
--- NOTE | 2025-01-04 10:45 | CON.NEURO4 ---
Addendum entered and electronically signed by Philip Wiggins MD 01/04/25 12:57:
Studies independently reviewed.
I have personally examined the patient. I reviewed and agree with the MED AIDE's Note.
My addenda:
Unresponsive to verbal or physical stimulation. No acute distress.
Speech mute, intubated
Did have a single spontaneous movement of bilateral upper extremities independently as well as right lower extremity independently in a decerebrate movement, low amplitude, brief
Pupils minimally responsive to light, slow eyelid closure after passive lid opening bilaterally. Negative doll's eyes
Neck: full ROM.
Chest: no dyspnea
Heart: no JVD
Ext: (-) Clubbing, (-) Cyanosis, (-) Edema
IMPRESSIONS/RECOMMENDATIONS:
Abrupt onset of change in mental status. Differential diagnosis includes hepatic encephalopathy with the patient's ammonia levels extremely elevated and relatively narrow ventricles.
After suggestion of neurosurgical involvement to determine if the patient would benefit from an extraventricular drain, comparison with imaging from 2019 indicated that there was possibly no significant change in the patient's ventricular size and
they were not actually narrow which was suggested by CT of the head performed urgently.
Differential diagnosis also includes bilateral embolic events and status epilepticus although this is least likely
Check CT of head, performed and does not demonstrate clear evidence of a new structural abnormality
Check EEG
Goal of lowering the patient's ammonia level
Unable to check MRI of brain due to presence of intracardiac defibrillator
Check blood work for additional metabolic abnormalities
D/W family / nursing
All questions answered.
Will continue to follow patient.
Original Note:
Consultation - Neurology 4
-
CONSULTING PHYSICIAN: Philip Wiggins MD
REFERRING PHYSICIAN: Hospitalists/Dr. Trammell, DO Resident
DICTATED BY: ROCHELLE Puga
DATE/TIME OF REQUEST: 01/04/25
DATE/TIME OF CONSULTATION: 01/04/25
Reason for Consultation: Altered mental status
History of Present Illness:
This is a 74-year-old male who has presented to the hospital on 12/26/24 with report of recurrent rectal bleeding secondary to radiation proctitis, fatigue, and generalized weakness. He has had an extensive hospital course including bacteremia,
anemia requiring blood transfusion, acute renal insufficiency on CKD, hypotension, VDRF, L pleural effusion, hepatic encephalopathy with ammonia levels up to 200, elevated troponin, hyponatremia, acute on chronic HFrEF, and RLE DVT. Patient's
ammonia level has come down to 71 and there has been no improvement in the patient's mental status, prompting Neurology consultation. Patient is intubated in the ICU, unresponsive, on no sedation. Patient's family at bedside reports that he has been
completely alert and conversant with ammonia levels higher than 100 in the past, this is atypical for him.
Past Medical History: HTN, HLD, DM requiring insulin, CAD, ME, CKD, PAD, prostate cancer w/ radiation proctitis, HRrEF, Vtach, COPD, cirrhosis of liver, hypotension, thrombocytopenia
Surgical History: ICD, CABG, b/l iliac stents, thoracentesis, paracentesis
Family History: Reviewed and noncontributory.
Social History: Former tobacco and alcohol. No illicit drug use.
Allergies: Erythromycin.
Home Medications: See below.
Review of Symptoms:
Per the HPI. I am unable to obtain a complete review of systems�because of patient's inability to provide history.
Physical Exam:
The patient is afebrile, abdomen is nondistended, breathing is unlabored on mechanical ventilation, +anasarca/weeping of extremities.
Neurologic Examination:
The patient is comatose. No eye opening. Does not follow commands or make any attempts to speak. No spontaneous movement. On cranial nerve assessment, pupils are 3 mm bilateral, round and reactive to light and accommodation. No resistance to eye
opening. Negative Dolls eyes. Diminished gag. Gaze is midline. MANUEL visual stauffer and EOMs. There is no apparent facial asymmetry. To pain, bilateral upper extremities extend, bilateral lower extremities triple flex. No involuntary movement noted.
Deep tendon reflexes are 1+ bilateral upper and lower extremities. Babinski is positive bilaterally. MANUEL sensation, double simultaneous, and coordination.
Lab Results: See below.
Neuro Imaging:
1. CT head 12/31/34: No acute intracranial abnormality noted.
2. CT head 01/04/25: pending
Differentials for the patient's presentation include:
1. Altered mental status; etiology is concerning for cerebral edema in the setting of profoundly elevated ammonia level. Ventricles on CT head imaging appear much more narrow than expected for patient's age. Cannot entirely exclude diffuse
embolic infarcts producing altered mental status given RLE DVT not on anticoagulation.
Patient has the following risk factors for their symptoms: high ammonia level
Recommendations:
-Stat CT head noncontrast obtained.
-Recommend urgent neurosurgical consultation.
Discussed patient care with: Dr. Wiggins, Dr. Cortes, Dr. Tavares, patient's family
Vital Signs and Labs
-
Vital Signs and Labs:
Vital Signs
Temp Pulse Resp BP Pulse Ox
97.7 F 80 17 130/47 100
01/04/25 09:37 01/04/25 09:37 01/04/25 09:37 01/04/25 09:37 01/04/25 09:37
Lab Results
01/04/25 03:43
PT 24.0 Sec (11.4-14.6) H 01/04/25 04:55
INR 2.14 01/04/25 04:55
APTT 38.5 Sec (23.4-35.0) H 01/04/25 04:55
Sodium 134 mmol/L (135-145) L D 01/04/25 03:43
Potassium 3.8 mmol/L (3.5-5.1) D 01/04/25 03:43
BUN 114 mg/dl (9-20) H* 01/04/25 03:43
Glucose 103 mg/dl (70-99) H 01/04/25 03:43
Calcium 6.4 mg/dl (8.4-10.2) L* D 01/04/25 03:43
Tpi-T-Fkfdjyudkqz Pept 3170 pg/ml 12/26/24 11:15
Medications
-
Active Medications
Generic Name Dose Route Start Last Admin
Trade Name Freq PRN Reason Stop Dose Admin
Albuterol/Ipratropium 3 ml 01/02/25 15:18
Ipratropium 0.5/Albuterol 3 Mg (3 Ml Ampul) INH
R QID PRN
sob
Protocol
Ascorbic Acid 500 mg 12/27/24 08:00 12/31/24 07:48
Ascorbic Acid 500 Mg Tablet PO 01/24/25 07:59 500 mg
On Hold: 12/31/24 18:42 DAILY CRISPIN Administration
Aspirin 81 mg 12/26/24 22:00 12/30/24 21:55
Aspirin 81 Mg (Enteric Coated) Tablet PO 01/23/25 21:59 81 mg
On Hold: 12/31/24 18:41 HS CRISPIN Administration
Atorvastatin Calcium 40 mg 12/28/24 18:00 12/31/24 17:31
Atorvastatin (Lipitor) 40 Mg Tablet PO 01/25/25 17:59 Not Given
On Hold: 12/31/24 18:42 QPM CRISIPN
Benzocaine/Menthol 1 lozenge 12/28/24 12:41 12/28/24 17:28
Benzocaine/Menthol Lozenge PO 01/25/25 12:40 1 lozenge
Q4HPRN PRN Administration
sore throat
Budesonide 0.5 mg 01/01/25 08:00 01/04/25 07:33
Budesonide (Pulmicort Respules) 0.5 Mg/2 Ml INH 0.5 mg
R BID CRISPIN Administration
Protocol
Dextrose 12.5 grams 01/03/25 12:11
Dextrose 50% (0.5 Grams/Ml) 50 Ml Syringe IV 01/31/25 12:10
[id number] PRN
Blood Glucose < 70
Fentanyl Citrate 50 mcg 01/01/25 02:32 01/03/25 22:31
Fentanyl (50 Mcg/Ml) 100 Mcg/2 Ml Ampul IV 01/15/25 02:31 50 mcg
[id number] PRN Administration
see protocol
Protocol
Ferrous Sulfate 325 mg 12/26/24 18:00 12/30/24 18:15
Ferrous Sulfate 325 Mg Tablet PO 01/23/25 17:59 325 mg
On Hold: 12/31/24 18:43 Q48H CRISPIN Administration
Folic Acid 0.5 mg 12/26/24 22:00 12/30/24 21:56
Folic Acid 0.5 Mg (1/2 Of A 1 Mg Tablet) PO 01/23/25 21:59 0.5 mg
On Hold: 12/31/24 18:42 HS CRISPIN Administration
Furosemide 80 mg 12/30/24 10:00 12/31/24 17:26
Furosemide 100 Mg (10 Mg/Ml) 10 Ml Vial IV 01/27/25 09:59 Not Given
On Hold: 12/31/24 18:42 BID AT 0800,1600 CRISPIN
Guaifenesin 600 mg 12/26/24 20:00 12/31/24 07:48
Guaifenesin 600 Mg Extended Release Tablet PO 01/23/25 19:59 600 mg
On Hold: 12/31/24 18:42 BID CRISPIN Administration
Hydrocortisone Sodium Succinate 50 mg 01/02/25 12:00 01/04/25 05:12
Hydrocortisone Sodium Succinate 100 Mg/2 Ml Vial IV 01/30/25 11:59 50 mg
Q6 CRISPIN Administration
Vasopressin 20 units in 100 mls @ 0 mls/hr 01/01/25 11:15 01/03/25 23:31
Pitressin IV 100 mls
PER PROTOCOL CRISPIN Administration
Protocol
Per Protocol
Norepinephrine Bitartrate 8 mg 258 mls @ 0 mls/hr 01/02/25 11:45 01/04/25 10:21
/ Sodium Chloride IV 258 mls
PER PROTOCOL CRISPIN Administration
Protocol
Per Protocol
Albumin Human 25 grams in 100 mls @ 60 mls/hr 01/03/25 11:00 01/04/25 02:38
Flexbumin IV 01/04/25 10:59 100 mls
Q8H CRISPIN Administration
Meropenem 500 mg/ Sodium 60 mls @ 15 mls/hr 01/03/25 13:00 01/04/25 00:13
Chloride IV 60 mls
Q12H CRISPIN Administration
Insulin Human Regular 100 units in 100 mls @ 0 mls/hr 01/03/25 12:15 01/04/25 07:38
Novolin R Insulin Infusion IV 100 mls
PER PROTOCOL CRISPIN Administration
Protocol
Per Protocol
Insulin Aspart 0 units 01/03/25 16:30 01/04/25 07:57
Insulin Aspart (Novolog) 100 Units/Ml 3 Ml Flexpen SC 01/31/25 16:29 Not Given
AC CRISPIN
Protocol
Lactulose 20 grams 01/03/25 08:00 01/04/25 07:37
Lactulose Solution (20 Grams/30 Ml) 30 Ml Cup TUBE 01/31/25 07:59 20 grams
QID CRISPIN Administration
Mesalamine 1,000 mg 12/31/24 22:00 01/03/25 22:26
Mesalamine 1000 Mg Rectal Suppository RECTAL 01/28/25 21:59 1,000 mg
HS CRISPIN Administration
Miconazole Nitrate 0 applic 01/03/25 19:33
Miconazole Powder Bottle TOPICAL 01/31/25 19:32
BIDPRN PRN
MASD
Midodrine 10 mg 01/02/25 21:24 01/04/25 07:37
Midodrine 5 Mg Tablet TUBE 01/27/25 12:59 10 mg
TID@0800,1300,1800 CRISPIN Administration
Multivitamins Therapeutic 1 tablet 12/26/24 18:00 12/31/24 17:32
Multivitamin Tablet PO 01/23/25 17:59 Not Given
On Hold: 12/31/24 18:42 QPM CRISPIN
Pantoprazole Sodium 40 mg 01/01/25 08:00 01/04/25 07:38
Pantoprazole Sodium 40 Mg/10 Ml Vial IV 01/29/25 07:59 40 mg
BID CRISPIN Administration
Polyethylene Glycol 17 grams 01/03/25 08:00 01/03/25 06:31
Polyethylene Glycol Powder 17 Grams Packet TUBE 01/31/25 07:59 Not Given
On Hold: 01/03/25 08:00 DAILY CRISPIN
Rifaximin 550 mg 01/02/25 21:24 01/04/25 07:37
Rifaximin 550 Mg Tablet TUBE 01/25/25 08:01 550 mg
BID CRISPIN Administration
Sodium Chloride 0 flush 12/26/24 19:00 01/03/25 17:54
Sodium Chloride 0.9% (Flush) Syringe IV 01/23/25 18:59 1 flush
PER PROTOCOL CRIPSIN Administration
Sodium Chloride 1 sprays 12/28/24 04:18 12/28/24 17:26
Sodium Chloride 0.65% Nasal [place] 45 Ml Bottle NASAL 01/25/25 04:17 1 sprays
QIDPRN PRN Administration
nasal dryness
Sodium Chloride 10 ml 01/01/25 08:00 01/04/25 07:38
Sodium Chloride 0.9% (Preservative Free) 10 Ml Vial IV 01/29/25 07:59 10 ml
BID CRISPIN Administration
Trimethobenzamide HCl 200 mg 12/31/24 16:03 12/31/24 17:09
Trimethobenzamide 200 Mg/2 Ml Vial IM 01/28/25 16:02 200 mg
Q6HPRN PRN Administration
nausea
Home Medications
�Medication �Instructions �Recorded
ascorbic acid (vitamin C) 500 mg 500 mg PO DAILY Supplement 09/25/18
tablet (Vitamin C)
aspirin 81 mg tablet,delayed 81 mg PO HS Blood clot 08/07/20
release prevention/tx ##0
folic acid 400 mcg tablet 0.4 mg PO HS Supplement ##0 08/07/20
furosemide 80 mg tablet 80 mg PO BID@0800,1600 30 days #60 11/24/24
tabs
insulin lispro 100 unit/mL 5 unit (0.05 mL) SC AC with meals 11/24/24
subcutaneous pen (Humalog KwikPen 30 days #90 ea
(U-100) Insulin)
rifaximin 550 mg tablet (Xifaxan) 550 mg PO BID 30 days #60 tabs 11/24/24
guaifenesin 600 mg tablet, 600 mg PO BID Congestion 12/02/24
extended release 12 hr (Mucinex)
tiotropium bromide 2.5 2 puff inhalation R DAILY 12/02/24
mcg/actuation mist for inhalation Lung/Breathing Issues
(Spiriva Respimat)
albuterol sulfate 90 mcg/actuation 2 puff inhalation R QIDPRN PRN sob 12/26/24
aerosol inhaler
ferrous sulfate 325 mg (65 mg 325 mg PO Q48H Supplement 12/26/24
iron) tablet
fluticasone propionate 230 2 puff inhalation R BID 12/26/24
mcg-salmeterol 21 mcg/actuation Lung/Breathing Issues
HFA inhaler (Advair HFA)
lactulose 10 gram/15 mL oral 10 g PO BID-TID Liver Issues 12/26/24
solution
metolazone 2.5 mg tablet 2.5 mg PO DAILY Fluid 12/26/24
Retention/Swelling
midodrine 5 mg tablet 5 mg PO BID Hypotension 12/26/24
therapeutic multivitamin 1 tab PO QPM Supplement 12/26/24
--- NOTE | 2025-01-04 10:50 | W.PN.CD ---
Today's Communication / Plan
-
Agree with holding ASA
Prognosis very poor
Impression / Plan
-
Background: 74 yo male (known to his net c developer Dr. Damon at [facility]) with VT now off of amiodarone, MDT BiV ICD, heart block, pacer dependent, CAD s/p CABG, HFrEF, HTN, HLD, PAD, DM, cirrhosis of liver and prostate cancer, who presented to the ER
with weakness and recurrent BRBPR. Cardiology consulted for concern for acute on chronic HFrEF.
Facilities Plant Engineer: [facility] ([facility])
Patient with multiple complex issues including DVT, Pseudomonas bacteremia with possible to culture 12/30/2024. There was discussion regarding IVC filter but not placed due to bacteremia. Patient was placed on Eliquis and has had issues with GI
bleeding and had decreased level of responsiveness requiring intubation. Patient currently in ICU. Patient's received PRBCs and also pressor support.
Hypotension
GI bleeding, now controlled, rectal and suspected small bowl source
VDRF
HFrEF/ICM
- EF on 01/03/2025 15-20% down from 35% on 11/12/2024
MARIA DOLORES on CKD
Anasarca
h/o VT and VF treated by his MDT BiV ICD, last ICD gen change 2020
- No recent VT/VF by device check 12/28/2024, but recently off Amiodarone
- MDT ICD in place, no recent discharges. Device interrogation 12/28 with no recurrent VT or NSVT
Complete heart block, pacer dependent, biv device in place
CAD - s/p CABG, stable w/o angina,continue ASA
Cirrhosis w/ Hx of hepatic encephalopathy
- GI comment 01/03/2025 noted: Decompensated with hepatic encephalopathy, ascites and thrombocytopenia, now with worsening hepatic encephalopathy likely precipitated by bleeding'
Venous, thrombosis-distal
Subjective: Intubated and not responsive
Data:
- TTE 11/12/2024: LVEF 35%, inferior and anteroseptal hypokinesis, normal RV, mild AAS, mild/mod TR, PASP 33 mmHg
Physical Exam
Vital Signs/Labs
Vital Signs
Temp Pulse Resp BP Pulse Ox
97.7 F 80 17 130/47 100
01/04/25 09:37 01/04/25 09:37 01/04/25 09:37 01/04/25 09:37 01/04/25 09:37
01/03/25 01/04/25 01/05/25
06:59 06:59 06:59
Actual Weight 93 kg 95.2 kg
01/04/25 03:43
PT 24.0 Sec (11.4-14.6) H 01/04/25 04:55
INR 2.14 01/04/25 04:55
APTT 38.5 Sec (23.4-35.0) H 01/04/25 04:55
Magnesium 2.3 mg/dl (1.6-2.3) 01/04/25 03:43
Triglycerides Cancelled 01/02/25 09:36
12/26/24
11:15
Wyi-Z-Dlocziiqsta Pept 3170
LAB Results
01/01/25 01/01/25 01/02/25
15:55 22:34 04:20
Troponin I 0.093 H* 0.097 H* 0.112 H*
01/03/25 01/03/25 01/04/25
10:12 17:49 03:43
Troponin I 0.208 H* 0.194 H* 0.152 H*
Data Reviewed
-
Date of Service: January 04, 2025
[2025-01-04 11:23] LABS: Glucose - Point of Care 178 mg/dl (70-99)
--- NOTE | 2025-01-04 12:02 | W.PN.GI.CBS2 ---
Addendum entered and electronically signed by Velia Fuller MD 01/04/25 15:15:
I saw and examined the patient.
The VESSEL SCRAPPER or PA's note was reviewed and I agree with the note.
Comment:
Pt with radiation proctitis with recurrent bleeds treated with APC, hgb drop with no signs of GI bleeding; new neuro issue
not responsive
impression:
hx of radiation proctitis currently not bleeding
critically ill with new neuro issue
plan:
monitor hgb and transfuse as needed; no signs of active GI bleeding
continue xifaxin/lactulose as needed
canasa suppository
will sign off call with questions
Original Note:
Today's Communication / Plan
-
Pt remains critically ill with multiple system involvement including resp, renal, neuro, along with GI/liver with decompensated cirrhosis
from bleeding standpoint
currently no signs of GI bleeding as stools brown though drop in hbg
agree with transfusion as needed PRBC's and platelets
cont to trend hbg
s/p flex x 2 and EGD as noted
cont canasa suppository
cont Xifaxan BID and lactulose QID-- ammonia now 71
pt also with worsening liver dysfunction with rise in INR, drop in platelets vs underlying heme issue cont to trend labs
s/p neuro eval reviewed with Dr. Tavares concern for change in mental status with concern for cerebral edema with ventricular narrowing and embolic infarct not excluded -- awaiting family decision on possible transfer to [place]
spoke with son as deciding of goals of care with possible transfer-- support given
reviewed with nursing staff and Dr. Cortes
Assessment / Plan
-
74yo male with multiple recent admissions to for rectal bleeding, HE/change in MS, PNA, cirrhosis, CHF, had multiple thoracentesis, paracentesis, now returns with BRB with brown stool similar to bleeding during prior admission. Treated with
flex sig/APC of radiation proctitis. He has seen Dr Butt for his liver disease and GI care. Colonoscopy was deferred in the past due to his DAPT and comorbidities and virtual colon was done instead about a year ago. Plavix has been stopped and
currently on ASA 81mg. s/p flex 12.27 with Multiple bleeding colonic angioectasias. Treated with argon. Pt was doing well from bleeding standpoint with brown stools but started on Eliquis 12/30 for DVT and on 12/31 noted with large amount for
bright red blood per rectum.
12/27/24 flex sig -hernandez - Preparation of the colon was fair.- Multiple bleeding colonic angioectasias. Treated with argon plasma coagulation (APC) No specimens collected
01/02/25- EGD bohning - normal esophagus,stomach, multiple duodenal angioectasia,
01/02/25 flex -bohning fair prep, ulcers in rectum one actively oozing treated with bipolar cautery, otherwise brown stool in proximal rectum and sigmoid
- Preparation of the colon was fair.
- A few ulcers in the rectum, one with active oozing. Treated with
bipolar cautery.
Mostly brown stool in the proximal rectum and sigmoid.
- No specimens collected.
Impression:
lower GI bleeding secondary to Radiation proctitis, hx prostate ca/XRT
anemia
change in mental status
hepatic encephalopathy
pseudomonas bacteremia
VDRF
hypotension requiring pressors
acute on chronic renal disease
DVT with start of Eliquis 12/30 now off
Cirrhosis
ascites with periodic paracentesis
thrombocytopenia
CHF
Recommendations:
Pt remains critically ill with multiple system involvement including resp, renal, neuro, along with GI/liver with decompensated cirrhosis
from bleeding standpoint
currently no signs of GI bleeding as stools brown though drop in hbg
agree with transfusion as needed PRBC's and platelets
cont to trend hbg
s/p flex x 2 and EGD as noted
cont canasa suppository
cont Xifaxan BID and lactulose QID-- ammonia now 71
pt also with worsening liver dysfunction with rise in INR, drop in platelets vs underlying heme issue cont to trend labs
s/p neuro eval reviewed with Dr. Tavares concern for change in mental status with concern for cerebral edema with ventricular narrowing and embolic infarct not excluded -- awaiting family decision on possible transfer to [place]
spoke with son as deciding of goals of care with possible transfer-- support given
reviewed with nursing staff and Dr. Cortes
Subjective
Subjective
Date of Service: January 04, 2025
stools now brown but loose per nursing staff, on tube feeds
Objective
Data Reviewed
Laboratory Data:
Laboratory Results
01/04/25 03:43
Laboratory Results
PT 24.0 Sec (11.4-14.6) H 01/04/25 04:55
INR 2.14 01/04/25 04:55
APTT 38.5 Sec (23.4-35.0) H 01/04/25 04:55
Magnesium 2.3 mg/dl (1.6-2.3) 01/04/25 03:43
Total Bilirubin Cancelled 01/03/25 10:14
AST Cancelled 01/03/25 10:14
ALT Cancelled 01/03/25 10:14
Alkaline Phosphatase Cancelled 01/03/25 10:14
Vital Signs and I&O:
Vital Signs
Temp Pulse Resp BP Pulse Ox
97.5 F 79 16 116/34 100
01/04/25 11:43 01/04/25 11:51 01/04/25 11:43 01/04/25 11:51 01/04/25 11:43
I&O
01/03/25 01/04/25 01/05/25
06:59 06:59 06:59
Intake Total 1652.5 / 1695.3 2206.6 / 2483.9 890.3 / 890.3
Output Total 537 / 537 875 / 915 342 / 342
Balance 1115.5 / 1158.3 1331.6 / 1568.9 548.3 / 548.3
Physical Exam
Physical Exam
HEENT: Other (jaundice )
Cardiology: Normal Sinus Rhythm
Pulmonary: Clear
GI: Soft, Distended (mild ) and Non Tender
Neuro: Other (sedated)
--- NOTE | 2025-01-04 12:05 | W.PN.UPDATE ---
Update Note
Progress Note Update
Dr. Tavares updated family at the bedside and did not private conference room on 3 separate occasions throughout the morning as her clinical situation changed
Neurology evaluated patient-recommended CT head-suspected increased intracranial pressure and neurosurgical/possible shunt was recommended
Patient's family discussed at length including 2 sons and and they concluded that they would not want patient transferred would not want this procedure
For now they wish to keep patient here with supportive care though withdrawal and comfort care was discussed as well
Dr. Tavares updated critical care nursing as well as neurology and hospitalist on several occasions
Total critical care time spent today 90 minutes
[2025-01-04] MEDS: PITRESSIN 100 IV (12:20)
--- NOTE | 2025-01-04 12:30 | PTCARENOTE ---
and son able to participate in rounds this morning. Patient displays brief decerebrate movement during oral care. Beeswax Bleacher aware. Neuro c/s placed. STAT CT Head done. and sons updated regarding results. Opting NOT to transfer patient
for shunt. Family decided to make pt DNR.
Patient has received 2 units of PRBCs this morning. 1 unit FFPs infusing at this time via RUE TL PICC. Plan to recheck H/H 1500.
Patient with large amount of incont stool; fecal incont pouch replaced. Pt on Vent AC settings changed to18 RR/500/40% Fi02/5 PEEP.
No changes to assessment from this morning.
[2025-01-04 12:41] LABS: Absolute Neutrophils -Man Diff 15.4 10^3/uL (1.4-6.5); Anisocytosis 1+; Hypochromasia 1+; Normal RBC Morphology No; Platelets Checked Yes; Polychromasia 1+
[2025-01-04 12:42] LABS: Acanthocytes 1+; Ovalocytes 1+; Stomatocytes FEW; Target Cells FEW; Total Cells Counted 100
[2025-01-04 13:18] LABS: Glucose - Point of Care 166 mg/dl (70-99)
--- NOTE | 2025-01-04 14:40 | W.PN.NEPH.PH ---
Today's Communication / Plan
-
Pressor support
Assessment/Plan
-
Assessment
MARIA DOLORES (B/L cr 1.9 )
hyponatremia
Anemia
Hypokalemia
pancytopenia
HFrEF 35% with Moderate TR
GI bleed
cirrhosis
left pleural effusion
mild ascites
Plan
hold diuretics today
follow BMP
follow hgb
prognosis is poor
d/w . likely MARIA DOLORES is from contrast + decompensated liver disease with GIB. unfortunately, he is not a candidate for dialysis. She understands this.
add 25 g albumin q 8 status post we will discontinue
agree insulin gtt
Creatinine improving urine output increasing pressor requirements decrease
No drop in hemoglobin being transfused rule out GI source
critical care time 31 minutes
-
-
Date of Service: January 04, 2025
CC / HPI / ROS
-
Chief Complaint:
MARIA DOLORES
History of Present Illness:
critically ill in ICU on pressors
now on vent
Hgb down to 7.9
s/p CTA 12/31 without active bleed
MARIA DOLORES/Cr up at 2.9>3.8
sodium up at 136
K up to 5.4
Review of Systems:
intubated sedated
Labs
-
Labs:
WBC 16.8 10^3/uL (4.8-10.8) H 01/04/25 03:43
RBC 1.62 10^6/uL (4.70-6.10) L 01/04/25 03:43
Hct 16.2 % (39.0-52.0) L* 01/04/25 03:43
Plt Count 63 10^3/uL (130-400) L D 01/04/25 03:43
Sodium 134 mmol/L (135-145) L D 01/04/25 03:43
Potassium 3.8 mmol/L (3.5-5.1) D 01/04/25 03:43
Chloride 107 mmol/L (98-107) 01/04/25 03:43
Carbon Dioxide 16 mmol/L (22-30) L 01/04/25 03:43
BUN 114 mg/dl (9-20) H* 01/04/25 03:43
Creatinine 2.8 mg/dL (0.7-1.3) H 01/04/25 03:43
eGFR 22.67 01/04/25 03:43
Glucose 103 mg/dl (70-99) H 01/04/25 03:43
Calcium 6.4 mg/dl (8.4-10.2) L* D 01/04/25 03:43
Tsf-K-Yaxlnmmiirm Pept 3170 pg/ml 12/26/24 11:15
Albumin Cancelled 01/03/25 10:14
Physical Exam
-
Vital Signs:
Vital Signs
Temp Pulse Resp BP Pulse Ox
97.5 F 77 18 120/35 98
01/04/25 13:13 01/04/25 14:00 01/04/25 14:00 01/04/25 13:13 01/04/25 14:00
--- NOTE | 2025-01-04 14:51 | EEG.RPT ---
Electroencephalogram Report
Recording
Date of EE01/04/25
Type of EEG: Routine
Length of EEG recordin minutes
Done with Video Recording: Yes
Patient Status: Inpatient
Recording Conditions: Other (Unresponsive)
Hyperventilation Performed: No
Photic Stimulation Performed: Yes
Report
LESS THAN 1 HOUR EEG REPORT
GREATER THAN 1 HOUR EEG INTERPRETATION:
Moderately abnormal EEG for age in wakefulness through drowsiness due to diffuse bihemispheric slowing and frontally predominant triphasic waves.
CLINICAL CORRELATION:
This study was suggestive of diffuse cortical dysfunction without focal abnormality which may be metabolic in origin. No clear seizure activity was recorded.
Clinical correlation is advised.
METHODS:
A 21 channel digitized electroencephalogram (EEG) was performed in the [facility]. The 10/20 international system of electrode placement was used with ECG and lateral/vertical eye movements recorded. Video was recorded.
QUALITY OF STUDY:
Fair
ELECTROENCEPHALOGRAPHER IMPRESSION(S):
Background
There was a low amplitude unorganized anterior-posterior voltage gradient of delta activity at maximum
There were no significant asymmetries of background activity noted.
Sleep
Drowsiness present
Photic Stimulation
Activated the record at intermediate flash frequencies, symmetrically
Abnormal EEG Activity
Initially intermittently seen were bursts of frontally predominant generalizing triphasic waves at times in trains of up to 10 seconds.
ECG
Normal sinus rhythm
[2025-01-04 15:32] LABS: Glucose - Point of Care 181 mg/dl (70-99)
--- NOTE | 2025-01-04 15:40 | PTCARENOTE ---
vasopressin turned off at this time
[2025-01-04 15:46] LABS: Hemoglobin 6.6 g/dL (13.0-18.0)
--- NOTE | 2025-01-04 16:19 | W.PN.HOSP.TC ---
Today's Communication/Plan
-
Assessment / Plan
Assessment / Plan
Endotracheal intubated, NGT noted
With jaundice
Scleral Anicteric
MMM
No JVD
CTABL
RRR, S1/S2
Soft, NT, ND, BS+
Warm, Dry
Concern for posturing
#Hepatic encephalopathy
- Required intubation on 12/31/2024 due to worsening mental status, ammonia near 200
- Was transition from oral lactulose to lactulose via OGT with Xifaxan continued
- CT head without contrast without acuity, no signs of cerebral edema
- Will continue with lactulose and Xifaxan, no utility to trending NH4
- DHT placed today for lactulose administration, increased to 20 TID
- Monitor MSE, avoid sedating agents as able
- Goal of 3-4 BM daily
Sepsis concern for posturing not awakening and has been off of sedatives with improvement in ammonia. Neurology consulted urgently and came to bedside. CT brain obtained. Per neurology via Dovray text ventricles or squeeze to catheter. For
increased intracranial pressure. May require external ventricular decompression. Therefore reach out to neurosurgery over Dovray text.. They reviewed CT brain from today and 2021 similar appearance. Will attempt to get MRI may be difficult with
pacemaker
Check EEG per neurology recommendations
#Circulatory shock
#Pseudomonas bacteremia
- Likely septic shock; unclear source, question urinary versus pulmonary versus gut/translocation
- Resolved circulatory shock on 12/28. Blood cultures were taken on 12/28 after pressors were started overnight.
- 1 Cx obtained at that time which was negative, however second blood culture was not taken until 12/30 was +
- Was started on IV cefepime and infectious disease was consulted; repeat blood cultures obtained
- Became hypotensive when intubated, was started on Levophed for hemodynamic support
-ID changed cefepime to meropenem
- Continue Levophed and vasopressin with MAP goal >65, wean as able
- Continue with midodrine
- Follow repeat blood cultures
#VDRF
#Left-sided pleural effusion
- Was intubated evening of 12/31/2024 with encephalopathy
- Imaging showing large left pleural effusion with possibly some atelectasis
- Does have positive blood cultures with Pseudomonas, cannot rule out pneumonia
- Discussed with ICU, no need for diagnostic thoracentesis, will reassess Friday and consider Thora
- Wean FiO2 as able, daily SAT/SBT
- Trend ABG and daily CXR
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
#Anemia of chronic disease
- Received 3 unit of PRBC here and hemoglobin stabilized; had rebleeding on Eliqu
- Bleeding likely from radiation proctitis
- S/p flex sig on 12/27 with bleeding ectasias that received APC
- Upper endoscopy demonstrated angioectasias without bleeding the
- Now holding anticoagulation, most recent hemoglobin 7.9, currently on IV PPI BID
- GI following, may need additional endoscopy and intervention to radiation proctitis
Anemia thrombocytopenia will check a peripheral smear. Fibrinogen low. May be dealing with low-grade DIC. Discussed personally with ethanol operator for [place] precipitate or FFP or even both. INR in the twos. Will give 1 unit of FFP now. Check
peripheral smear.
If concern for a hemolytic anemia will need to consult hematology
#Oliguric MARIA DOLORES on CKD
#Cardiorenal physiology
#Hepatorenal syndrome (?)
- Baseline creatinine near 2, up to 3.1 here. Likely cardiorenal physiology with HFrEF and EF 35%.
- Metolazone discontinued; s/p IV Lasix, IV Lasix has since been discontinued due to shock
- Most recent creatinine 2.9; trend BMP, UOP, I's and O's, and daily weights.
- Continue with midodrine and levophed for MAP goal >65 mmHg.
- Holding IV Lasix and optimize hemodynamics
- Avoid nephrotoxins
- Poor candidate for HD
#RLE DVT
- Ultrasound positive for DVT; did not tolerate reinitiation of Eliquis with GI bleeding
- Discussed with IR about IVC filter however currently with positive blood cultures as above
- Will consider IVC filter once blood cultures negative x 48 hours, plan repeat US as well
- Order repeat US for tomorrow
#Elevated troponin
- Likely nonischemic myocardial injury secondary to shock and anemia in context of obstructive CAD
- Holding antiplatelet agents and anticoagulations due to bleeding, currently on statin
- Continue to trend troponin to peak, serial ECG, telemetry
#Liver cirrhosis C/B ascites, HE, thrombocytopenia
#Chronic transaminitis
- Question of amiodarone induced liver toxicity, recently was discontinued
- MELD 3.0 score of 30; correlating to 73% to 60 days survival
- Home regimen includes Lasix, lactulose + Xifaxan, midodrine
- Recently had therapeutic paracentesis, no signs of SBP
- Holding home diuretics as above, monitor for recurrence of ascites
#Hypervolemic hyponatremia
- improving with FR diet and holding home diuretic; fluid restriction down to 40 now
- Serum sodium back to 127; nephrology following ; s/p 1 dose of Samsca on 12/30/2024
- Most recent serum sodium 129, to trend BMP
- Monitor volume status, I's and O's, weight
- Consider repeat urine studies if worsened
#Acute on chronic HFrEF
#Ischemic cardiomyopathy
#CAD s/p CABG
- Last TTE with LVEF 35%, mild aortic stenosis, preserved RV function
- Not receiving GDMT due to chronic hypotension and renal insufficiency
- home Diuretic regimen includes Lasix 80 mg twice daily and metolazone 2.5 mg daily
- Diuretics currently on hold here; remains on aspirin and statin
- Continue to trend I's and O's, daily weights
#History of VT
-Previous regimen included amiodarone which was discontinued due to likely associated liver disease
-No longer on any antiarrhythmic therapy, including beta-hemant or CCB
-Has AICD currently in place
#COPD
- Likely GOLD A-B; Home regimen includes Trelegy equivalent with Advair and Spiriva
- No recent pulmonary function test available to review
- No signs of COPD exacerbation on home regimen
#IDDM-2
- Home regimen previously included metformin; insulin lispro 5 units with meals
- Metformin was discontinued; remains on ISS alone
- Blood glucose goal 140-180
#H/O prostate cancer S/P XRT C/B radiation proctitis
#PAD s/p stent and endarterectomy
- Home regimen includes aspirin, not currently on statin per our records
- Will resume nightly statin at atorvastatin 20 mg for now
- Follow-up as OP and uptitrate as needed, LDL goal <70
# Stage II pressure injury on sacrum; present on admission
DVT prophylaxis: SCDs
GI prophylaxis: IV PPI
Diet: NPO for now
CODE STATUS: Full code
Disposition: TBD
Discussed with ICU
Prognosis is guarded to poor, may be heading towards comfort care
Anticipated Discharge: 24 - 48 hours
Subjective/Interval History
-
Date of Service: January 04, 2025
Seen and examined. Noted to have hemoglobin that was in the fives.
Left-sided is not waking up noted to have posturing
Objective Data
-
Labs:
Laboratory Results
01/04/25 01/04/25 01/04/25
03:43 04:55 15:24
WBC 16.8 H
Hgb 5.2 L* D 6.6 L* D
Hct 16.2 L*
Plt Count 63 L D
PT 24.0 H
INR 2.14
APTT 38.5 H
Sodium 134 L D
Potassium 3.8 D
Chloride 107
Carbon Dioxide 16 L
BUN 114 H*
Creatinine 2.8 H
Glucose 103 H
Calcium 6.4 L* D
Vital Signs:
Vital Signs
Temp Pulse Resp BP Pulse Ox
97.5 F 79 17 120/35 99
01/04/25 13:13 01/04/25 15:30 01/04/25 15:30 01/04/25 13:13 01/04/25 15:30
I&O
01/03/25 01/04/25 01/05/25
06:59 06:59 06:59
Intake Total 1652.5 / 1695.3 2206.6 / 2483.9 1463.1 / 1463.1
Output Total 537 / 537 875 / 915 607 / 607
Balance 1115.5 / 1158.3 1331.6 / 1568.9 856.1 / 856.1
[2025-01-04 16:39] LABS: Glucose - Point of Care 188 mg/dl (70-99)
[2025-01-04 17:45] LABS: Glucose - Point of Care 185 mg/dl (70-99)
[2025-01-04] MEDS: DUPHALAC/CHRONULAC TUBE ×2 (17:52→20:44)
[2025-01-04 18:41] LABS: Glucose - Point of Care 161 mg/dl (70-99)
[2025-01-04 19:43] LABS: Glucose - Point of Care 138 mg/dl (70-99)
--- NOTE | 2025-01-04 20:00 | PTCARENOTE ---
Assumed care at 1900. On levophed gtt to maintain systolic above 90. Glycemic protocol followed. V paced on the monitor. Unresponsive to deep pain. See worklist for nursing assessment details. On the vent ET#8,24 cm at the lip. AC 18/500/5/40%.
Family at bedside.
[2025-01-04 20:16] LABS: Glucose - Point of Care 134 mg/dl (70-99)
[2025-01-04] MEDS: ROWASA, CANASA SUPPOSITORY RECTAL (20:45)
[2025-01-04 21:11] LABS: Glucose - Point of Care 146 mg/dl (70-99)
[2025-01-04 22:16] LABS: Glucose - Point of Care 151 mg/dl (70-99)
[2025-01-04 23:06] LABS: Glucose - Point of Care 156 mg/dl (70-99)
[2025-01-05] VITALS (11 sets, daily range): BP systolic 89–143; BP diastolic 34–57; BMI 30.2
--- NOTE | 2025-01-05 | PTCARENOTE ---
No change from previous assessment. Weaned levophed to 2mcg/min. V paced on the monitor.
[2025-01-05] MEDS: SOLU-CORTEF 50 MG IV ×3 (00:05→19:47)
[2025-01-05] MEDS: MERREM 60 MG IV ×2 (00:06→12:07)
[2025-01-05] MEDS: NOVOLOG FLEXPEN 4 UNITS SC ×2 (00:18→06:09)
[2025-01-05 00:27] LABS: Glucose - Point of Care 147 mg/dl (70-99)
[2025-01-05 02:16] LABS: Glucose - Point of Care 155 mg/dl (70-99)
[2025-01-05 02:58] LABS: INR 2.48; PT 26.9 Sec (11.4-14.6)
[2025-01-05 03:01] LABS: Hematocrit 16.9 % (39.0-52.0); Hemoglobin 5.7 g/dL (13.0-18.0); Mean Corp Hgb Conc. 33.7 g/dL (33.0-37.0); Mean Corpuscular Volume 92.3 fL (80.0-94.0); Platelet Count 33 10^3/uL (130-400); Red Cell Dist. Width 21.5 % (11.5-14.5)
[2025-01-05 03:08] LABS: Ammonia 102 umol/L (9-30)
[2025-01-05 03:24] LABS: B.E. -0.9 mmol/L; HCO3 22.6 mmol/L (21-28); O2 Saturation % 99.0 % (94-98); PCO2 31 mmHg (35-48); PO2 168 mmHg (83-108)
[2025-01-05 03:25] LABS: ALT (SGPT) 96 U/L (0-50); AST (SGOT) 102 U/L (17-59); Albumin 1.6 g/dl (3.5-5.0); Alkaline Phosphatase 142 U/L (38-126); Blood Urea Nitrogen 118 mg/dl (9-20); Calcium 6.1 mg/dl (8.4-10.2); Carbon Dioxide 18 mmol/L (22-30); Chloride 112 mmol/L (98-107); Estimated Creatinine Clearance 27 ml/min; Glucose 97 mg/dl (70-99); Potassium 3.0 mmol/L (3.5-5.1); Sodium 137 mmol/L (135-145); Total Protein 3.6 g/dl (6.3-8.2); Triglycerides 94 mg/dl (10-149); eGFR 23.68
[2025-01-05] MEDS: SODIUM BICARBONATE 50 MEQ IV (04:08)
[2025-01-05] MEDS: KCL 100 IV ×2 (04:08→09:08)
[2025-01-05 04:11] LABS: Glucose - Point of Care 148 mg/dl (70-99)
[2025-01-05] MEDS: CALCIUM GLUCONATE 130 MG IV (04:13)
[2025-01-05] MEDS: NOVOLIN R INSULIN INFUSION 100 IV ×2 (04:41→23:38)
[2025-01-05] MEDS: SUBLIMAZE 50 MCG IV (04:42)
--- NOTE | 2025-01-05 04:52 | PTCARENOTE ---
No changes from previous assessment. Levo weaned to off. Am hgb 5.7. ICU provider made aware and ordered 2 units PRBCs. Calcium, sodium bicarb and k repleted. Fentanyl bolus given for breath stacking/high peak pressures.
[2025-01-05 06:13] LABS: Glucose - Point of Care 148 mg/dl (70-99)
[2025-01-05] MEDS: CALCIUM GLUCONATE 290 MG IV (06:41)
--- NOTE | 2025-01-05 07:27 | W.PN.INTV ---
Today's Communication / Plan
Recommendations
Stable on the ventilator
Neurologic status is not improved
Continue lactulose
Decrease hydrocortisone
Antibiotics
Pressors weaned
Hematology evaluation
Family updated
Assessment
-
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
kidney disease baseline creatinine 1.9, history of ischemic cardiomyopathy with bypass surgery EF 35%, admitted 12/26/2024 for rectal bleeding. Hospital course complicated by renal insufficiency, bacteremia, worsening hepatic encephalopathy,
transferred to ICU requiring intubation 01/01/2025
VDRF, intubated for airway protection, mental status changes 01/01/2025
Hepatic encephalopathy, ammonia level 200
Acute lower GI bleed, secondary to radiation proctitis
Requiring transfusion
Left upper extremity swelling with superficial thrombophlebitis
Right lower extremity DVT
Eliquis therapy 12/03/2024, now discontinued
Liver cirrhosis
Ascites, hepatic encephalopathy, thrombocytopenia
Chronic transaminitis
Acute renal insufficiency, baseline creatinine 1.9, worsening
Hypotension requiring pressors
Suspect multifactorial (bleeding, renal failure, liver failure, cardiomyopathy)
Conditions present prior to admission:
Hypertension/hyperlipidemia
Ischemic cardiomyopathy, EF 35%
History of VT, ICD
Amiodarone therapy in the past
Coronary disease bypass surgery
Insulin-dependent diabetes
Severe COPD, FEV1 33%
Recurrent left pleural effusion with left lower lobe consolidation/atelectasis
History of prostate cancer with radiation therapy
Peripheral arterial disease status post lower extremity stent/endarterectomy
Plan/recommendations
Remains critically ill sedated on a ventilator
Ventilator settings reviewed
ABG 01/06/2020 5-161/7.47
Spontaneous breathing trial-not a candidate at this time as mental status still extremely depressed
Nebulizers if needed-currently not bronchospastic-currently on DuoNebs and Pulmicort
VAP prevention protocol
Aspiration precautions
Severe COPD at baseline-FEV1 35% predicted
Follow x-ray
Mental status has not improved despite improvement in ammonia level
Nursing reporting some decerebrate posturing
Neurology evaluation 01/04/2025-reviewed
CT head 01/04/2025-possible increased intracranial pressure
After lengthy discussion the family would not want transfer/neurosurgical evaluation
Follow hemoglobin--continues to press
Transfuse as needed
PPI
Gastroenterology following-reviewed case with them
Hematology evaluation 01/05/2025
Replace electrolytes including calcium
Norepinephrine and vasopressin continues-attempt to wean
Stress dose steroids-hydrocortisone continue-begin to decrease to 50 mg IV every 12 hours
Lactulose intensified
Follow ammonia level-improved without any change in his mental status
Recent paracentesis without evidence of SBP
Chronic left pleuroparenchymal process is noted
Required outpatient thoracenteses
Tracheal aspirate gram-negative bacilli
Blood culture Pseudomonas
Small left pleural effusion
Will consider left thoracentesis-depending on clinical course
Monitor renal tjcbywqk-pmhnjnqlw-xwwycug kidney disease stage III with baseline serum creatinine 1.9, now with GI bleed and received dye
Renal function appears to have stabilized
Nephrology following-some improvement in creatinine
Bicarbonate as needed
Monitor cardiac status closely
Patient with known ischemic cardiomyopathy-EF 35%
Aspirin on hold due to rectal bleeding
ICD in place
Cardiology following-reviewed with them-Dr. Mayorga on 01/05/2025
Pressors weaned including norepinephrine and vasopressin
History of Rt lower extremity DVT and left upper extremity thrombophlebitis
IVC filter considered-hold off for now
Remains off anticoagulation given bleeding-INR elevated-suspect a component of DIC and auto anticoagulated
Cultures reviewed
Blood culture 03/06-Pseudomonas
Sputum culture-Pseudomonas
Infectious disease following
Antibiotics per infectious disease
Monitor blood sugar
Insulin drip per protocol
Diabetic nurse practitioner
DVT prophylaxis: Mechanical on the left. rt DVT noted
GI prophylaxis: Protonix
Nutrition-begin tube feeds 01/03/2025
Dr. Tavares updated son and on multidisciplinary rounds 01/03/2025, 01/04/2025, 01/05/2025
Critical care statement: A total of 40 minutes of critical care time was provided for this patient today. This includes management of unstable vital signs, evaluation of the patient at bedside, reviewing the patient�s pertinent medical records
including radiographs, microbiology, laboratory evaluations, and��discussion with primary team, consultants, pharmacy, nutrition, physical therapy, case management, charge nurse, critical care nursing, and respiratory therapy.
Subjective Dataa
Subjective Data
Date of Service:
Date of Service: January 05, 2025
Chief Complaint: Supervisor Dry Paste Follow Up, Pulmonary Follow Up and Vent Management Follow Up
Subjective:
No significant change in mental status, off pressors, stable on the ventilator,
Review of Systems
General: Unobtainable - Pat Unresp
Objective Data
Data Reviewed
Vital Signs / I&O / Oxygen:
Vital Signs
Temp Pulse Resp BP Pulse Ox
98.3 F 81 18 133/40 100
01/05/25 06:43 01/05/25 06:43 01/05/25 06:43 01/05/25 06:43 01/05/25 06:43
Intake and Output
01/04/25 01/05/25 01/06/25
06:59 06:59 06:59
Intake Total 2206.6 / 2483.9 3573.3 / 3573.3
Output Total 875 / 915 1342 / 1342
Balance 1331.6 / 1568.9 2231.3 / 2231.3
SaO2 [ASV] 98
SaO2 [A/C] 99
SaO2 100
Nasal Cannula flow liters per 2
minute
Physical Exam
General: Respiratory Distress (n), Comfortable and Other (Upper extremity midline, A-line)
HEENT: Normocephalic, Anicteric and Moist Mucous Membranes
Cardiovascular: Regular Rhythm, Murmur (2/6 systolic murmur) and Rub (n)
Respiratory: Wheeze (n), Crackles (Few basilar), Rhonchi (n), Non-Labored Respirations, Accessory Resp Muscle Use (n), Stridor (n) and ET Tube
GI: Soft, Distended and Non Tender
Neurology: Lethargic (Sedated but does open eyes. Does not follow commands)
Skin: Warm, Good Color, Cyanosis (n), Jaundice (n), Rash (n) and Bruising (Few)
Labs/Micro/Reports
Laboratory Results
01/05/25 01/05/25
02:36 03:12
PT 26.9 H
INR 2.48
pH 7.47 H
pCO2 31 L
pO2 168 H
HCO3 22.6
O2 Delivery Level
Microbiology
12/31/24 20:09 Blood/Venous Blood Culture - Preliminary
No Growth in 4 days- Final report to follow
12/31/24 19:39 Blood/Venous Blood Culture - Preliminary
No Growth in 4 days- Final report to follow
01/01/25 11:36 Tracheal Aspirate Respiratory Culture - Final
Pseudomonas aeruginosa
01/01/25 11:36 Tracheal Aspirate Gram Stain - Final
12/28/24 12:27 Blood/Venous Blood Culture - Final
No Growth - Final Report
12/30/24 07:36 Blood/Venous Blood Culture - Final
Pseudomonas aeruginosa
12/30/24 07:36 Blood/Venous Gram Stain - Final
[2025-01-05] MEDS: PULMICORT 0.5 MG INH ×2 (07:29→19:57)
[2025-01-05 08:27] LABS: Glucose - Point of Care 150 mg/dl (70-99)
[2025-01-05] MEDS: PROTONIX IV 40 MG IV ×2 (09:08→19:47)
[2025-01-05] MEDS: DUPHALAC/CHRONULAC 20 GRAMS TUBE ×4 (09:08→22:04)
[2025-01-05] MEDS: NSS (PRESERVATIVE FREE) 10 ML IV ×2 (09:09→19:47)
[2025-01-05] MEDS: XIFAXAN 550 MG TUBE ×2 (09:09→19:48)
--- NOTE | 2025-01-05 09:39 | W.PN.CD ---
Today's Communication / Plan
-
Prognosis poor
Agree with supportive care
DNR noted, for now will leave ICD active
Impression / Plan
-
Background: 74 yo male (known to his irrigator valve pipe Dr. Damon at [facility]) with VT now off of amiodarone, MDT BiV ICD, heart block, pacer dependent, CAD s/p CABG, HFrEF, HTN, HLD, PAD, DM, cirrhosis of liver and prostate cancer, who presented to
the ER with weakness and recurrent BRBPR. Cardiology consulted for concern for acute on chronic HFrEF.
Hat Block Bench Hand: Nelson ([facility])
Patient with multiple complex issues including DVT, Pseudomonas bacteremia with possible to culture 12/30/2024. Worsening renal injury, worsening encephalopathy, respiratory failure. There was discussion regarding IVC filter but not placed due to
bacteremia. Patient was placed on Eliquis and has had issues with GI bleeding and had decreased level of responsiveness requiring intubation. Patient currently in ICU. Patient's received PRBCs and also pressor support.
Hypotension => improved, off pressors
GI bleed, now controlled, rectal and suspected small bowl source
- 9 Units PRBC transfused since 11/12/2024
VDRF
HFrEF/ICM
- EF on 01/03/2025 15-20% down from 35% on 11/12/2024
MARIA DOLORES on CKD
Anasarca
h/o VT and VF treated by his MDT BiV ICD, last ICD gen change 2020
- No recent VT/VF by device check 12/28/2024, but recently off Amiodarone
Complete heart block, pacer dependent, biv device in place
CAD - s/p CABG, stable w/o angina,continue ASA
Cirrhosis w/ Hx of hepatic encephalopathy
- GI comment 01/03/2025 noted: Decompensated with hepatic encephalopathy, ascites and thrombocytopenia, now with worsening hepatic encephalopathy likely precipitated by bleeding'
Venous, thrombosis-distal
DNR noted, for now will leave ICD active
Subjective: Intubated and not responsive
Data:
- TTE 11/12/2024: LVEF 35%, inferior and anteroseptal hypokinesis, normal RV, mild AAS, mild/mod TR, PASP 33 mmHg
Physical Exam
Vital Signs/Labs
Vital Signs
Temp Pulse Resp BP Pulse Ox
98.1 F 89 20 143/34 97
01/05/25 08:59 01/05/25 08:59 01/05/25 08:59 01/05/25 08:59 01/05/25 08:59
01/04/25 01/05/25 01/06/25
06:59 06:59 06:59
Actual Weight 95.2 kg 95.4 kg
PT 26.9 Sec (11.4-14.6) H 01/05/25 02:36
INR 2.48 01/05/25 02:36
APTT 38.5 Sec (23.4-35.0) H 01/04/25 04:55
Magnesium 2.3 mg/dl (1.6-2.3) 01/04/25 03:43
Triglycerides 94 mg/dl (10-149) 01/05/25 02:36
12/26/24
11:15
Bzt-X-Qchzgivsich Pept 3170
LAB Results
01/03/25 01/03/25 01/04/25
10:12 17:49 03:43
Troponin I 0.208 H* 0.194 H* 0.152 H*
Physical Exam
Cardiovascular: Rhythm & rate is regular and Pedal edema is absent
Respiratory: Respiratory effort normal and Crackles Absent
GI: Soft
Neuro/Psych: Other (not responsive)
Data Reviewed
-
Date of Service: January 05, 2025
[2025-01-05] MEDS: LASIX 40 MG IV (10:22)
[2025-01-05 10:28] LABS: Glucose - Point of Care 144 mg/dl (70-99)
--- NOTE | 2025-01-05 10:43 | PN.DE.MGMTRT ---
Addendum entered and electronically signed by Lula Valenzuela NP 01/05/25 10:47:
Tube feeds, Nepro, continue @ 45ml/hr
Original Note:
Insulin Management
- -
01/05/2025: Diabetes Management Consult Follow up
74 year old male admitted 12/26 with acute on chronic rectal bleeding diabetes management consult 01/03. PMH: HTN, HLD, ICM EF 35%, CAD s/p bypass surgery, h/o VT, ICD, Severe COPD, FEV1 33%, PAD s/p lower extremity stent/endarterectomy, Liver
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 A1C 5.6%, Cr 3.7, eGFR 16.23.
Hospital course complicated by renal insufficiency, bacteremia, worsening hepatic encephalopathy with an ammonia level of 200, anemia requiring blood transfusion, and Hypotension requiring pressors, transferred to ICU requiring intubation 01/01/2025.
Pt remains critically ill, intubated and sedated, unable to interview, no family at bedside.
On stress dose steroids- Hydrocortisone 50mg Q6 hrs contributing to hyperglycemia.
01/04 Initiated SC novolog 4 units Q 6 hours in addition to glycemic protocol as insulin infusion up to 7 units per hour.
Critical care glycemic protocol insulin infusion has been continued overnight.
Current glucose range 148 to 161, requiring 3.5 to 5 units of insulin per hour. Will increase Q 6 hours novolog to 6 units SQ, first dose at 12 noon.
Discussed with nurse.
Will continue insulin infusion for now and cont to follow.
Diabetes History
- -
Type of Diabetes: 2 requiring insulin
Pre-Admission Diabetes Regimen
01/05/25 01/05/25
02:36 12:00
Creatinine 2.7 H Cancelled
Lab Results
Hemoglobin A1c Cancelled 01/03/25 12:11
Insulin Pump Settings
IP Diabetes Regimen
01/04/25 01/04/25 01/04/25
11:12 13:06 15:21
Glucose
POC Glucose 178 H 166 H 181 H
01/04/25 01/04/25 01/04/25
16:27 17:33 18:29
Glucose
POC Glucose 188 H 185 H 161 H
01/04/25 01/04/25 01/04/25
19:33 20:04 21:00
Glucose
POC Glucose 138 H 134 H 146 H
01/04/25 01/04/25 01/05/25
22:05 22:55 00:17
Glucose
POC Glucose 151 H 156 H 147 H
01/05/25 01/05/25 01/05/25
02:04 02:36 04:00
Glucose 97
POC Glucose 155 H 148 H
01/05/25 01/05/25 01/05/25
06:02 08:16 10:17
Glucose
POC Glucose 148 H 150 H 144 H
01/05/25
12:00
Glucose Cancelled
POC Glucose
Patient Education
[2025-01-05 11:03] LABS: LDH 199 U/L (120-246)
--- NOTE | 2025-01-05 11:40 | CON.ONC ---
Consultation
-
Date Consultation Requested: 01/05/25
Date Consultation Performed: 01/05/25
Requesting Provider: Sebastian
Performing Provider: Prabhu
Reason for Consultation: Anemia
Impression
Impression
Anemia
GI Bleed
VDRF
HFrEF/ICM
MARIA DOLORES on CKD
Possible DIC
Anasarca
Cirrhosis w/ Hx of hepatic encephalopathy
CAD - s/p CABG,
right gastrocnemius vein thrombosis
DNR
Plan
Plan
Complex patient with multiple issues contributing to anemia including GI bleed, MARIA DOLORES, possible hemolysis but hard to diagnosis with advanced liver disease,
Transfuse PRBC as needed for maintaining HgB > 7.
DIC also possible but with DVT and liver failure, hard to prove definitively. S/P 2 u FFP.
Very poor Px. Very little for hematology to add to what primary team already doing.
Patient History
History of Present Illness
74 yo male with cirrhosis of liver and prostate cancer, who presented to the ER with weakness and recurrent BRBPR. Patient with multiple complex issues including DVT, Pseudomonas bacteremia, worsening renal injury, worsening encephalopathy, vent
dependent respiratory failure. There was discussion regarding IVC filter but not placed due to bacteremia. Patient was placed on Eliquis and has had issues with GI bleeding and had decreased level of responsiveness requiring intubation. Patient
currently in ICU. Patient's received PRBCs x 7 units and FFP x 2 units and also pressor support. Currently off pressors. GI bleed, now controlled, rectal and suspected small bowl source with 7 Units PRBC transfused since 11/12/2024. Develpoed a
right gastrocnemius vein thrombosis. IVC filter considered but not done. Consulted for suspected 'hemolytic anemia' with high bilirubin and no obvious site of blood loss despite multiple units PRBC and ongoing anemia. Patient unresponsive.
and son at bedside
Past-Medical/Surgical History
PMH: VT, BiV ICD, heart block, pacer dependent, CAD s/p CABG, HFrEF, HTN, HLD, PAD, DM, cirrhosis of liver and prostate cancer, radiation proctitis
Patient Medication
�Medication �Instructions �Recorded �Confirmed �Last Taken �Type
ascorbic acid (vitamin C) 500 mg 500 mg PO DAILY Supplement 09/25/18 12/26/24 12/25/24 History
tablet (Vitamin C)
aspirin 81 mg tablet,delayed 81 mg PO HS Blood clot 08/07/20 12/26/24 12/24/24 Rx
release prevention/tx ##0
folic acid 400 mcg tablet 0.4 mg PO HS Supplement ##0 08/07/20 12/26/24 12/25/24 Rx
furosemide 80 mg tablet 80 mg PO BID@0800,1600 30 days #60 11/24/24 12/26/24 12/25/24 Rx
tabs
insulin lispro 100 unit/mL 5 unit (0.05 mL) SC AC with meals 11/24/24 12/26/24 Unknown Rx
subcutaneous pen (Humalog KwikPen 30 days #90 ea
(U-100) Insulin)
rifaximin 550 mg tablet (Xifaxan) 550 mg PO BID 30 days #60 tabs 11/24/24 12/26/24 12/25/24 Rx
guaifenesin 600 mg tablet, 600 mg PO BID Congestion 12/02/24 12/26/24 12/25/24 History
extended release 12 hr (Mucinex)
tiotropium bromide 2.5 2 puff inhalation R DAILY 12/02/24 12/26/24 12/25/24 History
mcg/actuation mist for inhalation Lung/Breathing Issues
(Spiriva Respimat)
albuterol sulfate 90 mcg/actuation 2 puff inhalation R QIDPRN PRN sob 12/26/24 12/26/24 Unknown History
aerosol inhaler
ferrous sulfate 325 mg (65 mg 325 mg PO Q48H Supplement 12/26/24 12/26/24 Unknown History
iron) tablet
fluticasone propionate 230 2 puff inhalation R BID 10/12/26/24 12/25/24 History
mcg-salmeterol 21 mcg/actuation Lung/Breathing Issues
HFA inhaler (Advair HFA)
lactulose 10 gram/15 mL oral 10 g PO BID-TID Liver Issues 12/26/24 01/01/25 12/25/24 History
solution
metolazone 2.5 mg tablet 2.5 mg PO DAILY Fluid 12/26/24 12/26/24 12/25/24 History
Retention/Swelling
midodrine 5 mg tablet 5 mg PO BID Hypotension 12/26/24 12/26/24 12/25/24 History
therapeutic multivitamin 1 tab PO QPM Supplement 12/26/24 12/26/24 12/25/24 History
Active Medications
Generic Name Dose Route Start Last Admin
Trade Name Freq PRN Reason Stop Dose Admin
Albuterol/Ipratropium 3 ml 01/02/25 15:18
Ipratropium 0.5/Albuterol 3 Mg (3 Ml Ampul) INH
R QID PRN
sob
Protocol
Ascorbic Acid 500 mg 12/27/24 08:00 12/31/24 07:48
Ascorbic Acid 500 Mg Tablet PO 01/24/25 07:59 500 mg
On Hold: 12/31/24 18:42 DAILY CRISPIN Administration
Aspirin 81 mg 12/26/24 22:00 12/30/24 21:55
Aspirin 81 Mg (Enteric Coated) Tablet PO 01/23/25 21:59 81 mg
On Hold: 12/31/24 18:41 HS CRISPIN Administration
Atorvastatin Calcium 40 mg 12/28/24 18:00 12/31/24 17:31
Atorvastatin (Lipitor) 40 Mg Tablet PO 01/25/25 17:59 Not Given
On Hold: 12/31/24 18:42 QPM CRISPIN
Benzocaine/Menthol 1 lozenge 12/28/24 12:41 12/28/24 17:28
Benzocaine/Menthol Lozenge PO 01/25/25 12:40 1 lozenge
Q4HPRN PRN Administration
sore throat
Budesonide 0.5 mg 01/01/25 08:00 01/05/25 07:29
Budesonide (Pulmicort Respules) 0.5 Mg/2 Ml INH 0.5 mg
R BID CRISPIN Administration
Protocol
Dextrose 12.5 grams 01/03/25 12:11
Dextrose 50% (0.5 Grams/Ml) 50 Ml Syringe IV 01/31/25 12:10
[id number] PRN
Blood Glucose < 70
Fentanyl Citrate 50 mcg 01/01/25 02:32 01/05/25 04:42
Fentanyl (50 Mcg/Ml) 100 Mcg/2 Ml Ampul IV 01/15/25 02:31 50 mcg
[id number] PRN Administration
see protocol
Protocol
Ferrous Sulfate 325 mg 12/26/24 18:00 12/30/24 18:15
Ferrous Sulfate 325 Mg Tablet PO 01/23/25 17:59 325 mg
On Hold: 12/31/24 18:43 Q48H CRISPIN Administration
Folic Acid 0.5 mg 12/26/24 22:00 12/30/24 21:56
Folic Acid 0.5 Mg (1/2 Of A 1 Mg Tablet) PO 01/23/25 21:59 0.5 mg
On Hold: 12/31/24 18:42 HS CRISPIN Administration
Furosemide 80 mg 12/30/24 10:00 12/31/24 17:26
Furosemide 100 Mg (10 Mg/Ml) 10 Ml Vial IV 01/27/25 09:59 Not Given
On Hold: 12/31/24 18:42 BID AT 0800,1600 CRISPIN
Guaifenesin 600 mg 12/26/24 20:00 12/31/24 07:48
Guaifenesin 600 Mg Extended Release Tablet PO 01/23/25 19:59 600 mg
On Hold: 12/31/24 18:42 BID CRISPIN Administration
Hydrocortisone Sodium Succinate 50 mg 01/05/25 20:00
Hydrocortisone Sodium Succinate 100 Mg/2 Ml Vial IV 02/02/25 19:59
Q12 CRISPIN
Norepinephrine Bitartrate 8 mg 258 mls @ 0 mls/hr 01/02/25 11:45 01/04/25 10:21
/ Sodium Chloride IV 258 mls
PER PROTOCOL CRISPIN Administration
Protocol
Per Protocol
Meropenem 500 mg/ Sodium 60 mls @ 15 mls/hr 01/03/25 13:00 01/05/25 00:06
Chloride IV 60 mls
Q12H CRISPIN Administration
Insulin Human Regular 100 units in 100 mls @ 0 mls/hr 01/03/25 12:15 01/05/25 04:41
Novolin R Insulin Infusion IV 100 mls
PER PROTOCOL CRISPIN Administration
Protocol
Per Protocol
Calcium Gluconate 3,000 mg/ 130 mls @ 130 mls/hr 01/05/25 08:51
Sodium Chloride IV 01/05/25 09:50
ONCE ONE
Potassium Chloride 20 meq/ 260 mls @ 130 mls/hr 01/05/25 08:51
Sodium Chloride IV 01/05/25 10:50
NOW STA
Insulin Aspart 6 units 01/05/25 12:00
Insulin Aspart (Novolog) 100 Units/Ml 3 Ml Flexpen SC 02/02/25 11:59
Q6 CRISPIN
Lactulose 20 grams 01/03/25 08:00 01/05/25 09:08
Lactulose Solution (20 Grams/30 Ml) 30 Ml Cup TUBE 01/31/25 07:59 20 grams
QID CRISPIN Administration
Mesalamine 1,000 mg 12/31/24 22:00 01/04/25 20:45
Mesalamine 1000 Mg Rectal Suppository RECTAL 01/28/25 21:59 Not Given
HS CRISPIN
Miconazole Nitrate 0 applic 01/03/25 19:33
Miconazole Powder Bottle TOPICAL 01/31/25 19:32
BIDPRN PRN
MASD
Midodrine 10 mg 01/02/25 21:24 01/05/25 09:06
Midodrine 5 Mg Tablet TUBE 01/27/25 12:59 Not Given
TID@0800,1300,1800 CRISPIN
Multivitamins Therapeutic 1 tablet 12/26/24 18:00 12/31/24 17:32
Multivitamin Tablet PO 01/23/25 17:59 Not Given
On Hold: 12/31/24 18:42 QPM CRISPIN
Pantoprazole Sodium 40 mg 01/01/25 08:00 01/05/25 09:08
Pantoprazole Sodium 40 Mg/10 Ml Vial IV 01/29/25 07:59 40 mg
BID CRISPIN Administration
Polyethylene Glycol 17 grams 01/03/25 08:00 01/03/25 06:31
Polyethylene Glycol Powder 17 Grams Packet TUBE 01/31/25 07:59 Not Given
On Hold: 01/03/25 08:00 DAILY CRISPIN
Rifaximin 550 mg 01/02/25 21:24 01/05/25 09:09
Rifaximin 550 Mg Tablet TUBE 01/25/25 08:01 550 mg
BID CRISPIN Administration
Sodium Chloride 0 flush 12/26/24 19:00 01/03/25 17:54
Sodium Chloride 0.9% (Flush) Syringe IV 01/23/25 18:59 1 flush
PER PROTOCOL CRISPIN Administration
Sodium Chloride 1 sprays 12/28/24 04:18 12/28/24 17:26
Sodium Chloride 0.65% Nasal [place] 45 Ml Bottle NASAL 01/25/25 04:17 1 sprays
QIDPRN PRN Administration
nasal dryness
Sodium Chloride 10 ml 01/01/25 08:00 01/05/25 09:09
Sodium Chloride 0.9% (Preservative Free) 10 Ml Vial IV 01/29/25 07:59 10 ml
BID CRISPIN Administration
Trimethobenzamide HCl 200 mg 12/31/24 16:03 12/31/24 17:09
Trimethobenzamide 200 Mg/2 Ml Vial IM 01/28/25 16:02 200 mg
Q6HPRN PRN Administration
nausea
Physical Exam
-
Intubated. Unresponsive
Labs
Lab Results
WBC Cancelled 01/05/25 12:00
RBC Cancelled 01/05/25 12:00
Hgb Cancelled 01/05/25 12:00
Hct Cancelled 01/05/25 12:00
MCV Cancelled 01/05/25 12:00
MCH Cancelled 01/05/25 12:00
MCHC Cancelled 01/05/25 12:00
RDW Cancelled 01/05/25 12:00
Plt Count Cancelled 01/05/25 12:00
MPV Cancelled 01/05/25 12:00
Abs Immat Gran (auto) 0.5 10^3/uL (0-0.05) H 01/03/25 04:16
Absolute Neuts (auto) 23.5 10^3/uL (1.4-6.5) H 01/03/25 04:16
Absolute Lymphs (auto) 0.6 10^3/uL (1.2-3.4) L 01/03/25 04:16
Absolute Monos (auto) 2.1 10^3/uL (0.1-0.6) H 01/03/25 04:16
Absolute Eos (auto) 0.0 10^3/uL (0-0.7) 01/03/25 04:16
Absolute Basos (auto) 0.0 10^3/uL (0-0.2) 01/03/25 04:16
Immature Gran % 2.0 % (0-0.5) H 01/03/25 04:16
Neutrophils % 87.5 % (42.2-75.2) H 01/03/25 04:16
Lymphocytes % 2.4 % (20.5-51.1) L 01/03/25 04:16
Monocytes % 8.0 % (1.7-9.3) 01/03/25 04:16
Eosinophils % 0.0 % (0-6) 01/03/25 04:16
Basophils % 0.1 % (0-2) 01/03/25 04:16
Creatinine Cancelled 01/05/25 12:00
Vital Signs
Vital Signs
Temp Pulse Resp BP Pulse Ox
98.4 F 88 20 128/29 100
01/05/25 11:30 01/05/25 11:00 01/05/25 11:00 01/05/25 10:22 01/05/25 11:25
--- NOTE | 2025-01-05 12:00 | PTCARENOTE ---
Systems reviewed. Remains off pressors. Patient turned head away when performing oral care this morning. Did not display decerebrate posturing. Does not follow commands. Withdrawals from deep painful stimuli at nail beds in all extremities. +
corneal, weak gag, weak cough upon turning. No cough present when deep suctioning via ETT. Lungs with less rhonchi post IV Lasix administration. Tolerating Vent AC 18 RR/500/30%/PEEP 5. ETT secretions clear. V-paced on tele. Fecal incont pouch
intact; liquid brown stool. Urine jordin/pink tinged in color after turning and repositioning in bed. Skin with multiple skin tears and + edema that is weeping. Patient is being turned Q2 hours, heels are floated. Completed 2 units PRBCs this
morning. Family at bedside, ( and sons). Participated in rounds this morning. Repeat labs this afternoon.
[2025-01-05] MEDS: NOVOLOG FLEXPEN 6 UNITS SC ×2 (12:05→18:01)
[2025-01-05 12:10] LABS: Glucose - Point of Care 164 mg/dl (70-99)
--- NOTE | 2025-01-05 12:55 | W.PN.NEURO.1 ---
Today's Communication / Plan
-
Unable to check MRI of brain due to AICD
Consider recheck of CAT scan of head to determine if there are structural changes from the initial study performed during this admission
Continue goal of reducing ammonia levels
Neuro Assessment/Plan
Assessment
Abrupt onset of change in mental status. Differential diagnosis includes hepatic encephalopathy with the patient's ammonia levels extremely elevated and relatively narrow ventricles.
After suggestion of neurosurgical product support consultant, comparison with imaging from 2019 indicated that there was possibly no significant change in the patient's ventricular size from then to now by repeated CAT scan of the head.
Differential diagnosis also includes bilateral embolic events. Currently no evidence of status epilepticus by EEG.
Plan
Unable to check MRI of brain due to AICD
Consider recheck of CAT scan of head to determine if there are structural changes from the initial study performed during this admission
Continue goal of reducing ammonia levels
Will follow peripherally
Subjective/Objective
Subjective Data
Date of Service: January 05, 2025
Patient unable to provide his own medical history
Objective Data
Vital Signs
Temp Pulse Resp BP Pulse Ox
36.9 C 88 20 128/29 94
01/05/25 11:30 01/05/25 11:00 01/05/25 11:00 01/05/25 10:22 01/05/25 12:00
PT 26.9 Sec (11.4-14.6) H 01/05/25 02:36
INR 2.48 01/05/25 02:36
APTT 38.5 Sec (23.4-35.0) H 01/04/25 04:55
Sodium Cancelled 01/05/25 12:00
Potassium Cancelled 01/05/25 12:00
BUN Cancelled 01/05/25 12:00
Glucose Cancelled 01/05/25 12:00
Calcium Cancelled 01/05/25 12:00
Azx-U-Ptsukasqepz Pept 3170 pg/ml 10/26/25 11:15
Patient Allergies
erythromycin base (Erythromycin Base) Allergy (Verified 12/21/24 10:46)
contraindicated (see comment)
Review of Systems
-
Unable to obtain full review of systems at this time due to: Patient Intubation and Lethargy
History Source: Patient
All other systems: Reviewed and negative
Physical Exam
-
General: No Apparent Distress, Intubated, Obese and Appears Stated Age
Eyes: OU Absent Papilledema, Round OU and [place] Conjunctivae
HEENT: Anicteric and Moist Mucous Membranes
Neck: Full Range of Motion
Respiratory: No Dyspnea
Cardiac: No JVD
GI: Non-distended
Skin: Unremarkable
Extremities: No Clubbing and No Cyanosis
Psych: Unable to Assess
Extended Neurological Exam
Mood & Affect: Unable to Assess
Attention Span & Concentration: Unresponsive to Verbal Stimuli and Other (Minimal movement of bilateral upper and lower extremities to painful stimulation); Negative Awake, Alert or Interactive
Memory: Unable to Assess
Tremor: Hand Tremor Absent and Head Tremor Absent
Involuntary Movement: None
Speech: Unable to Assess
Cranial Nerve II: Left Eye: Pupillary Reactivity Unremarkable (Sluggish), Pupillary Size Unremarkable and Unable to Assess Visual [place]
Cranial Nerve II: Right Eye: Pupillary Reactivity Unremarkable (Sluggish), Pupillary Size Unremarkable and Unable to Assess Visual [place]
Cranial Nerves III, IV, : Extraocular Movement: Absent Doll's Eyes and Unable to Assess (Ptosis)
Cranial Nerve V: Facial Sensation: Unable to Assess and Other (Corneals negative bilaterally)
Cranial Nerve VII: Facial Symmetry: Normal Facial Symmetry
Cranial Nerves IX, X: Palate Movement: Unable to Assess
Cranial Nerve XI: Shoulder Shrug: Unable to Assess
Cranial Nerve XII: Tongue Protusion: Unable to Assess
Muscle Strength, Overall: Negative Spontaneously Moves
Muscle Bulk & Tone: Bulk Unremarkable and Tone Unremarkable
Pronator Drift: Unable to Assess
Cold Sensation: Unable to Assess
Vibration Sensation: Unable to Assess
Touch Sensation: Withdrawal to Pain (Minimal)
Coordination: Unable to Assess
Gait & Station: Unable to Assess
Data Reviewed
-
CT Head: Report Reviewed
EEG: Report Reviewed
Labs: Report Reviewed
Reviewed with: Physician and Nurse
Old Records: Summarized
Past History
Past History
ED Past Medical History: Other (Hepatic encephalopathy)
Family History
Family History: Unable to obtain
Medications
-
Medications:
Generic Name Dose Route Start Last Admin
Trade Name Freq PRN Reason Stop Dose Admin
Albuterol/Ipratropium 3 ml 01/02/25 15:18
Ipratropium 0.5/Albuterol 3 Mg (3 Ml Ampul) INH
R QID PRN
sob
Protocol
Ascorbic Acid 500 mg 12/27/24 08:00 12/31/24 07:48
Ascorbic Acid 500 Mg Tablet PO 01/24/25 07:59 500 mg
On Hold: 12/31/24 18:42 DAILY CRISPIN Administration
Aspirin 81 mg 12/26/24 22:00 12/30/24 21:55
Aspirin 81 Mg (Enteric Coated) Tablet PO 01/23/25 21:59 81 mg
On Hold: 12/31/24 18:41 HS CRISPIN Administration
Atorvastatin Calcium 40 mg 12/28/24 18:00 12/31/24 17:31
Atorvastatin (Lipitor) 40 Mg Tablet PO 01/25/25 17:59 Not Given
On Hold: 12/31/24 18:42 QPM CRISPIN
Benzocaine/Menthol 1 lozenge 12/28/24 12:41 12/28/24 17:28
Benzocaine/Menthol Lozenge PO 01/25/25 12:40 1 lozenge
Q4HPRN PRN Administration
sore throat
Budesonide 0.5 mg 01/01/25 08:00 01/05/25 07:29
Budesonide (Pulmicort Respules) 0.5 Mg/2 Ml INH 0.5 mg
R BID CRISPIN Administration
Protocol
Dextrose 12.5 grams 01/03/25 12:11
Dextrose 50% (0.5 Grams/Ml) 50 Ml Syringe IV 01/31/25 12:10
[id number] PRN
Blood Glucose < 70
Fentanyl Citrate 50 mcg 01/01/25 02:32 01/05/25 04:42
Fentanyl (50 Mcg/Ml) 100 Mcg/2 Ml Ampul IV 01/15/25 02:31 50 mcg
[id number] PRN Administration
see protocol
Protocol
Ferrous Sulfate 325 mg 12/26/24 18:00 12/30/24 18:15
Ferrous Sulfate 325 Mg Tablet PO 01/23/25 17:59 325 mg
On Hold: 12/31/24 18:43 Q48H CRISPIN Administration
Folic Acid 0.5 mg 12/26/24 22:00 12/30/24 21:56
Folic Acid 0.5 Mg (1/2 Of A 1 Mg Tablet) PO 01/23/25 21:59 0.5 mg
On Hold: 12/31/24 18:42 HS CRISPIN Administration
Furosemide 80 mg 12/30/24 10:00 12/31/24 17:26
Furosemide 100 Mg (10 Mg/Ml) 10 Ml Vial IV 01/27/25 09:59 Not Given
On Hold: 12/31/24 18:42 BID AT 0800,1600 CRISPIN
Guaifenesin 600 mg 12/26/24 20:00 12/31/24 07:48
Guaifenesin 600 Mg Extended Release Tablet PO 01/23/25 19:59 600 mg
On Hold: 12/31/24 18:42 BID CRISPIN Administration
Hydrocortisone Sodium Succinate 50 mg 01/05/25 20:00
Hydrocortisone Sodium Succinate 100 Mg/2 Ml Vial IV 02/02/25 19:59
Q12 CRISPIN
Norepinephrine Bitartrate 8 mg 258 mls @ 0 mls/hr 01/02/25 11:45 01/04/25 10:21
/ Sodium Chloride IV 258 mls
PER PROTOCOL CRISPIN Administration
Protocol
Per Protocol
Meropenem 500 mg/ Sodium 60 mls @ 15 mls/hr 01/03/25 13:00 01/05/25 12:07
Chloride IV 60 mls
Q12H CRISPIN Administration
Insulin Human Regular 100 units in 100 mls @ 0 mls/hr 01/03/25 12:15 01/05/25 04:41
Novolin R Insulin Infusion IV 100 mls
PER PROTOCOL CRISPIN Administration
Protocol
Per Protocol
Calcium Gluconate 3,000 mg/ 130 mls @ 130 mls/hr 01/05/25 08:51
Sodium Chloride IV 01/05/25 09:50
ONCE ONE
Potassium Chloride 20 meq/ 260 mls @ 130 mls/hr 01/05/25 08:51
Sodium Chloride IV 01/05/25 10:50
NOW STA
Insulin Aspart 6 units 01/05/25 12:00 01/05/25 12:05
Insulin Aspart (Novolog) 100 Units/Ml 3 Ml Flexpen SC 02/02/25 11:59 6 units
Q6 CRISPIN Administration
Lactulose 20 grams 01/03/25 08:00 01/05/25 12:06
Lactulose Solution (20 Grams/30 Ml) 30 Ml Cup TUBE 01/31/25 07:59 20 grams
QID CRISPIN Administration
Mesalamine 1,000 mg 12/31/24 22:00 01/04/25 20:45
Mesalamine 1000 Mg Rectal Suppository RECTAL 01/28/25 21:59 Not Given
HS CRISPIN
Miconazole Nitrate 0 applic 01/03/25 19:33
Miconazole Powder Bottle TOPICAL 01/31/25 19:32
BIDPRN PRN
MASD
Midodrine 10 mg 01/02/25 21:24 01/05/25 09:06
Midodrine 5 Mg Tablet TUBE 01/27/25 12:59 Not Given
TID@0800,1300,1800 CRISPIN
Multivitamins Therapeutic 1 tablet 12/26/24 18:00 12/31/24 17:32
Multivitamin Tablet PO 01/23/25 17:59 Not Given
On Hold: 12/31/24 18:42 QPM CRISPIN
Pantoprazole Sodium 40 mg 01/01/25 08:00 01/05/25 09:08
Pantoprazole Sodium 40 Mg/10 Ml Vial IV 01/29/25 07:59 40 mg
BID CRISPIN Administration
Polyethylene Glycol 17 grams 01/03/25 08:00 01/03/25 06:31
Polyethylene Glycol Powder 17 Grams Packet TUBE 01/31/25 07:59 Not Given
On Hold: 01/03/25 08:00 DAILY CRISPIN
Rifaximin 550 mg 01/02/25 21:24 01/05/25 09:09
Rifaximin 550 Mg Tablet TUBE 01/25/25 08:01 550 mg
BID CRISPIN Administration
Sodium Chloride 0 flush 12/26/24 19:00 01/03/25 17:54
Sodium Chloride 0.9% (Flush) Syringe IV 01/23/25 18:59 1 flush
PER PROTOCOL CRISPIN Administration
Sodium Chloride 1 sprays 12/28/24 04:18 12/28/24 17:26
Sodium Chloride 0.65% Nasal [place] 45 Ml Bottle NASAL 01/25/25 04:17 1 sprays
QIDPRN PRN Administration
nasal dryness
Sodium Chloride 10 ml 01/01/25 08:00 01/05/25 09:09
Sodium Chloride 0.9% (Preservative Free) 10 Ml Vial IV 01/29/25 07:59 10 ml
BID CRISPIN Administration
Trimethobenzamide HCl 200 mg 12/31/24 16:03 12/31/24 17:09
Trimethobenzamide 200 Mg/2 Ml Vial IM 01/28/25 16:02 200 mg
Q6HPRN PRN Administration
nausea
--- NOTE | 2025-01-05 13:28 | W.PN.NEPH.PH ---
Today's Communication / Plan
-
replete lytes
Assessment/Plan
-
Assessment
MARIA DOLORES (B/L cr 1.9 )
hyponatremia
Anemia
Hypokalemia
pancytopenia
HFrEF 35% with Moderate TR
GI bleed
cirrhosis
left pleural effusion
mild ascites
Plan
try diuretics today
follow BMP
follow hgb
replete lytes
prognosis is poor
critical care time 31 minutes
-
-
Date of Service: January 05, 2025
CC / HPI / ROS
-
Chief Complaint:
MARIA DOLORES
History of Present Illness:
critically ill in ICU on pressors
still on vent
Hgb down to 5.7
s/p CTA 12/31 without active bleed
MARIA DOLORES/Cr stable 2.7
BUN rising
sodium up at 137
K low 3.0
Review of Systems:
intubated sedated
Labs
-
Labs:
eGFR Cancelled 01/05/25 12:00
Oyj-W-Pfzrjbznjsm Pept 3170 pg/ml 12/26/24 11:15
Albumin 1.6 g/dl (3.5-5.0) L 01/05/25 02:36
Physical Exam
-
Vital Signs:
Vital Signs
Temp Pulse Resp BP Pulse Ox
98.4 F 98 16 128/29 98
01/05/25 11:30 01/05/25 13:00 01/05/25 13:00 01/05/25 10:22 01/05/25 13:00
Cardiovascular:: Regular rate and rhythm
Respiratory:: Bilateral: Coarse
Lung Excursion:: Normal
Abdomen:: Nontender and Soft
Bowel Sounds:: Decreased
Extremity Edema:: +3: Bilateral:
--- NOTE | 2025-01-05 13:45 | W.PN.ID1 ---
Date of Service
Date of Service: January 05, 2025
Today's Communication
Continue antibiotics.
Assessment / Plan
Pseudomonas bacteremia
- History of Pseudomonas recovered from lungs
- Pseudomonas again recovered on 01/01 from the lungs.
DVT (gastrocnemius vein)
GI bleed
Anemia
Hepatic encephalopathy
Hyponatremia
Renal insufficiency; worsening
Elevated LFTs; trending up
DM
HLD
HTN
CAD; Hx AR
PAD
Hx prostate CA
V. tach
CHF with depressed EF
COPD
Recommendations:
Repeat blood cultures show no growth.
Cefepime changed to meropenem 01/03/2025 over concerns for encephalopathy
Creatinine mildly improved today. Est CrCl = 27
With blood cultures negative, now safer to insert IVC filter if felt needed.
Continue with meropenem (day #6 abx)
Follow white count and temperature curve.
Continue with supportive measures.
Patient critically ill with hypoxemic respiratory failure in ICU.
[place] remains extremely guarded at this time
����������������������������������������������������������
Chief Complaint
-: Leukocytosis, Clinical Sepsis, Bacteremia and Other (Hepatic encephalopathy)
Subjective / Review of Systems
Patient seen and examined. Remains on vent.
Vital Signs / Physical Exam
Vital Signs
Vital Signs
Temp Pulse Resp BP Pulse Ox
98.4 F 98 16 128/29 98
01/05/25 11:30 01/05/25 13:00 01/05/25 13:00 01/05/25 10:22 01/05/25 13:00
Physical Exam
Constitutional: Acutely Ill and Toxic
Head: Other (ET tube in place. Nasal [place] in place.)
Eyes: Other (Scleral icterus noted)
Cardiovascular: Regular Rate and S1/S2; Negative S3/S4
Pulmonary: Clear and Coarse; Negative Wheezes or Rales
Gastrointestinal: Soft, Non Distended, Decreased Bowel Sounds, No Rebound and No Guarding
Genito-Urinary: [place] and Clear Urine
Extremities: Edema; Negative Cyanosis or Erythema
Skin: Jaundice
Neurological: Other (Sedated. Some response to voice and touch.)
Objective Data
Lab Data
PT 26.9 Sec (11.4-14.6) H 01/05/25 02:36
INR 2.48 01/05/25 02:36
APTT 38.5 Sec (23.4-35.0) H 01/04/25 04:55
Estimated Creat Clear Cancelled 01/05/25 12:00
Total Bilirubin 3.2 mg/dl (0.2-1.3) H 01/05/25 02:36
AST 102 U/L (17-59) H 01/05/25 02:36
ALT 96 U/L (0-50) H 01/05/25 02:36
Alkaline Phosphatase 142 U/L (38-126) H 01/05/25 02:36
Most recent labs reviewed.
Micro Results:
12/31/24 20:09 Blood Culture - Preliminary
Blood/Venous No Growth in 4 days- Final report to follow
12/31/24 19:39 Blood Culture - Preliminary
Blood/Venous No Growth in 4 days- Final report to follow
01/01/25 11:36 Respiratory Culture - Final
Tracheal Aspirate Pseudomonas aeruginosa
Gram Stain - Final
12/28/24 12:27 Blood Culture - Final
Blood/Venous No Growth - Final Report
12/30/24 07:36 Blood Culture - Final
Blood/Venous Pseudomonas aeruginosa
Gram Stain - Final
Imaging:
12/30/2024 Duplex ultrasound lower extremity: there is an occlusive thrombus within the right gastrocnemius vein in the calf. There is spontaneous phasic flow with compressibility in the right common femoral, femoral and popliteal veins.
Care Review
Plan reviewed with: Nurse
[2025-01-05 14:22] LABS: Hematocrit 24.6 % (39.0-52.0); Hemoglobin 8.5 g/dL (13.0-18.0); Mean Corp Hgb Conc. 34.6 g/dL (33.0-37.0); Mean Corpuscular Volume 90.4 fL (80.0-94.0); Platelet Count 33 10^3/uL (130-400); Red Cell Dist. Width 20.1 % (11.5-14.5)
[2025-01-05 14:26] LABS: Glucose - Point of Care 134 mg/dl (70-99)
[2025-01-05 15:19] LABS: Calcium 9.4 mg/dl (8.4-10.2); Carbon Dioxide 23 mmol/L (22-30); Chloride 103 mmol/L (98-107); Glucose 116 mg/dl (70-99); Potassium 3.8 mmol/L (3.5-5.1); Sodium 135 mmol/L (135-145)
[2025-01-05 15:38] LABS: Blood Urea Nitrogen 141 mg/dl (9-20); Estimated Creatinine Clearance 20 ml/min; eGFR 16.23
--- NOTE | 2025-01-05 16:00 | PTCARENOTE ---
Systems reviewed. 450cc UO post IV Lasix administration. Hematuria present in [place]ma[place]. Dr. Briggs made aware. Fecal pouch replaced due to leakage, brown loose output. Remains on insulin gtt. Withdrawals head when performing oral care. Turned Q2
hours. Heels floated. SCD on LLE. Weaning steroids. Support provided to the family.
[2025-01-05 16:40] LABS: Glucose - Point of Care 148 mg/dl (70-99)
--- NOTE | 2025-01-05 17:06 | CM ---
Intubated, poor prognosis, neuro status not improving, unable to do MRI brain due to ICD, IV/Solu-Cortef/meropenem/lasix. Discharge POC: [facility].
--- NOTE | 2025-01-05 17:06 | W.PN.HOSP.TC ---
Today's Communication/Plan
-
Assessment / Plan
Assessment / Plan
Endotracheal intubated, NGT noted
With jaundice
Scleral Anicteric
MMM
No JVD
CTABL
RRR, S1/S2
Soft, NT, ND, BS+
Warm, Dry
Concern for posturing
#Hepatic encephalopathy
- Required intubation on 12/31/2024 due to worsening mental status, ammonia near 200
- Was transition from oral lactulose to lactulose via OGT with Xifaxan continued
- CT head without contrast without acuity, no signs of cerebral edema
- Will continue with lactulose and Xifaxan, no utility to trending NH4
- DHT placed today for lactulose administration, increased to 20 TID
- Monitor MSE, avoid sedating agents as able
- Goal of 3-4 BM daily
Sepsis concern for posturing not awakening and has been off of sedatives with improvement in ammonia. Neurology consulted urgently and came to bedside. CT brain obtained. Per neurology via [facility] text ventricles or squeeze to catheter. For
increased intracranial pressure. May require external ventricular decompression. Therefore reach out to neurosurgery over [employer] text.. They reviewed CT brain from today and 2021 similar appearance. Will attempt to get MRI may be difficult with
pacemaker
Check EEG per neurology recommendations
#Circulatory shock
#Pseudomonas bacteremia
- Likely septic shock; unclear source, question urinary versus pulmonary versus gut/translocation
- Resolved circulatory shock on 12/28. Blood cultures were taken on 12/28 after pressors were started overnight.
- 1 Cx obtained at that time which was negative, however second blood culture was not taken until 12/30 was +
- Was started on IV cefepime and infectious disease was consulted; repeat blood cultures obtained
- Became hypotensive when intubated, was started on Levophed for hemodynamic support
- ID changed cefepime to meropenem
- Continue Levophed and vasopressin with MAP goal >65, wean as able
- Continue with midodrine
- Follow repeat blood cultures ngtd
- Sputum cx + for pseudomonas
#VDRF
#Left-sided pleural effusion
- Was intubated evening of 12/31/2024 with encephalopathy
- Imaging showing large left pleural effusion with possibly some atelectasis
- Does have positive blood cultures with Pseudomonas, cannot rule out pneumonia
- Discussed with ICU, no need for diagnostic thoracentesis, will reassess Friday and consider Thora
- Wean FiO2 as able, daily SAT/SBT
- Trend ABG and daily CXR
#ABLA secondary to LGIB
#Anemia of chronic disease
#DIC
# ?ongoing consumptive porcess, not actively seeing bleeding
- Received 7 unit of PRBC here and hemoglobin stabilized; had rebleeding on Eliquis
- S/p flex sig on 12/27 with bleeding ectasias that received APC
- Upper endoscopy demonstrated angioectasias without bleeding the
- Now holding anticoagulation, currently on IV PPI BID
- GI following, may need additional endoscopy and intervention to radiation proctitis
- LDH/ Hapto/Peripheral smear
- S/p 2u FFP, Last unit on 01/04 for low grade DIC
- Maintian Hgb >7
- Hematology consult
#Oliguric MARIA DOLORES on CKD
#Cardiorenal physiology
#Hepatorenal syndrome (?)
- Baseline creatinine near 2, up to 3.1 here. Likely cardiorenal physiology with HFrEF and EF 35%.
- Metolazone discontinued; s/p IV Lasix, IV Lasix has since been discontinued due to shock
- Most recent creatinine 2.9; trend BMP, UOP, I's and O's, and daily weights.
- Continue with midodrine and levophed for MAP goal >65 mmHg.
- Holding IV Lasix and optimize hemodynamics
- Avoid nephrotoxins
- Poor candidate for HD
#RLE DVT
- Ultrasound positive for DVT; did not tolerate reinitiation of Eliquis with GI bleeding
- Discussed with IR about IVC filter however currently with positive blood cultures as above
- Will consider IVC filter once blood cultures negative x 48 hours, plan repeat US as well
#Elevated troponin
- Likely nonischemic myocardial injury secondary to shock and anemia in context of obstructive CAD
- Holding antiplatelet agents and anticoagulations due to bleeding, currently on statin
- Continue to trend troponin to peak, serial ECG, telemetry
#Liver cirrhosis C/B ascites, HE, thrombocytopenia
#Chronic transaminitis
- Question of amiodarone induced liver toxicity, recently was discontinued
- MELD 3.0 score of 30; correlating to 73% to 60 days survival
- Home regimen includes Lasix, lactulose + Xifaxan, midodrine
- Recently had therapeutic paracentesis, no signs of SBP
- Holding home diuretics as above, monitor for recurrence of ascites
#Hypervolemic hyponatremia
- improving with FR diet and holding home diuretic; fluid restriction down to 40 now
- Serum sodium back to 127; nephrology following ; s/p 1 dose of Samsca on 12/30/2024
- Most recent serum sodium 129, to trend BMP
- Monitor volume status, I's and O's, weight
- Consider repeat urine studies if worsened
#Acute on chronic HFrEF
#Ischemic cardiomyopathy
#CAD s/p CABG
- Last TTE with LVEF 35%, mild aortic stenosis, preserved RV function
- Not receiving GDMT due to chronic hypotension and renal insufficiency
- home Diuretic regimen includes Lasix 80 mg twice daily and metolazone 2.5 mg daily
- Diuretics currently on hold here; remains on aspirin and statin
- Continue to trend I's and O's, daily weights
#History of VT
-Previous regimen included amiodarone which was discontinued due to likely associated liver disease
-No longer on any antiarrhythmic therapy, including beta-hemant or CCB
-Has AICD currently in place
#COPD
- Likely GOLD A-B; Home regimen includes Trelegy equivalent with Advair and Spiriva
- No recent pulmonary function test available to review
- No signs of COPD exacerbation on home regimen
#IDDM-2
- Home regimen previously included metformin; insulin lispro 5 units with meals
- Metformin was discontinued; remains on ISS alone
- Blood glucose goal 140-180
#H/O prostate cancer S/P XRT C/B radiation proctitis
#PAD s/p stent and endarterectomy
- Home regimen includes aspirin, not currently on statin per our records
- Will resume nightly statin at atorvastatin 20 mg for now
- Follow-up as OP and uptitrate as needed, LDL goal <70
# Stage II pressure injury on sacrum; present on admission
DVT prophylaxis: SCDs
GI prophylaxis: IV PPI
Diet: NPO for now
CODE STATUS: Full code
Disposition: TBD
Discussed with ICU
Prognosis is guarded to poor, may be heading towards comfort care
Anticipated Discharge: > 48 hours
Subjective/Interval History
-
Date of Service: January 05, 2025
Seen and examined. Remains intubated. Off of sedation. Hemoglobin remains low. Weaning pressors/actually off of pressors at the time of my evaluation
Objective Data
-
Labs:
Laboratory Results
01/05/25 01/05/25 01/05/25
12:00 14:15 14:16
WBC Cancelled 14.0 H
Hgb Cancelled 8.5 L D
Hct Cancelled 24.6 L
Plt Count Cancelled 33 L
Sodium Cancelled 135
Potassium Cancelled 3.8 D
Chloride Cancelled 103
Carbon Dioxide Cancelled 23
BUN Cancelled 141 H*
Creatinine Cancelled 3.7 H
Glucose Cancelled 116 H
Calcium Cancelled 9.4 D
Vital Signs:
Vital Signs
Temp Pulse Resp BP Pulse Ox
99.3 F 103 20 128/29 99
01/05/25 15:34 01/05/25 16:00 01/05/25 16:00 01/05/25 10:22 01/05/25 16:15
I&O
01/04/25 01/05/25 01/06/25
06:59 06:59 06:59
Intake Total 2206.6 / 2483.9 3573.3 / 3578.3 575 / 575
Output Total 875 / 915 1342 / 1400 729.0 / 729.0
Balance 1331.6 / 1568.9 2231.3 / 2178.3 -154.0 / -154.0
[2025-01-05 18:07] LABS: Glucose - Point of Care 152 mg/dl (70-99)
[2025-01-05 20:10] LABS: Glucose - Point of Care 153 mg/dl (70-99)
[2025-01-05] MEDS: ROWASA, CANASA SUPPOSITORY RECTAL (22:04)
[2025-01-05 22:13] LABS: Glucose - Point of Care 147 mg/dl (70-99)
[2025-01-05 23:52] LABS: Glucose - Point of Care 145 mg/dl (70-99)
--- NOTE | 2025-01-06 00:05 | PTCARENOTE ---
full assessment documented at 1999. no changes in assessment, pt remains on glycemic protocol. vasopressors not needed at this time. CHG, mcmahon care, oral care provided. care ongoing.
[2025-01-06] MEDS: MERREM 60 MG IV ×2 (00:17→12:24)
[2025-01-06] MEDS: NOVOLOG FLEXPEN 6 UNITS SC ×4 (00:18→17:56)
[2025-01-06 02:18] LABS: Glucose - Point of Care 151 mg/dl (70-99)
[2025-01-06 03:00] LABS: B.E. -2.5 mmol/L; HCO3 20.6 mmol/L (21-28); O2 Saturation % 99.1 % (94-98); PCO2 29 mmHg (35-48); PO2 111 mmHg (83-108)
[2025-01-06 03:04] LABS: Hematocrit 24.5 % (39.0-52.0); Hemoglobin 8.2 g/dL (13.0-18.0); Mean Corp Hgb Conc. 33.5 g/dL (33.0-37.0); Mean Corpuscular Volume 90.7 fL (80.0-94.0); Platelet Count 38 10^3/uL (130-400); Red Cell Dist. Width 19.9 % (11.5-14.5)
[2025-01-06 03:15] LABS: Ammonia 67 umol/L (9-30)
[2025-01-06 03:43] LABS: Blood Urea Nitrogen 152 mg/dl (9-20); Calcium 8.9 mg/dl (8.4-10.2); Carbon Dioxide 20 mmol/L (22-30); Chloride 106 mmol/L (98-107); Estimated Creatinine Clearance 21 ml/min; Glucose 131 mg/dl (70-99); Potassium 3.1 mmol/L (3.5-5.1); Sodium 137 mmol/L (135-145); eGFR 17.96
[2025-01-06 04:13] VITALS: BMI 30.7
[2025-01-06 04:14] LABS: Glucose - Point of Care 128 mg/dl (70-99)
[2025-01-06] MEDS: KCL 100 IV (04:15)
[2025-01-06] MEDS: SUBLIMAZE 50 MCG IV (04:19)
--- NOTE | 2025-01-06 04:30 | PTCARENOTE ---
AM labs sent, potassium being repleted at this time. assessment unchanged. hematuria remains in mcmahon, UOP adequate. care ongoing.
[2025-01-06 05:40] LABS: INR 1.71; PT 20.6 Sec (11.4-14.6)
[2025-01-06 05:41] LABS: APTT 32.4 Sec (23.4-35.0); Fibrinogen 205 MG/DL (199-459)
[2025-01-06 05:51] LABS: D-Dimer 13.64 ug/mlFEU (0.00-0.50)
[2025-01-06 06:02] LABS: Glucose - Point of Care 126 mg/dl (70-99)
[2025-01-06] MEDS: PULMICORT 0.5 MG INH ×2 (07:09→19:27)
--- NOTE | 2025-01-06 07:31 | W.PN.INTV ---
Today's Communication / Plan
Recommendations
Antibiotics
Lactulose
No change in the ventilator
EEG
Assessment
-
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
kidney disease baseline creatinine 1.9, history of ischemic cardiomyopathy with bypass surgery EF 35%, admitted 12/26/2024 for rectal bleeding. Hospital course complicated by renal insufficiency, bacteremia, worsening hepatic encephalopathy,
transferred to ICU requiring intubation 01/01/2025
VDRF, intubated for airway protection, mental status changes 01/01/2025
Hepatic encephalopathy, ammonia level 200
Acute lower GI bleed, secondary to radiation proctitis
Requiring transfusion
Left upper extremity swelling with superficial thrombophlebitis
Right lower extremity DVT
Eliquis therapy 12/03/2024, now discontinued
Liver cirrhosis
Ascites, hepatic encephalopathy, thrombocytopenia
Chronic transaminitis
Acute renal insufficiency, baseline creatinine 1.9, worsening
Hypotension requiring pressors
Suspect multifactorial (bleeding, renal failure, liver failure, cardiomyopathy)
Conditions present prior to admission:
Hypertension/hyperlipidemia
Ischemic cardiomyopathy, EF 35%
History of VT, ICD
Amiodarone therapy in the past
Coronary disease bypass surgery
Insulin-dependent diabetes
Severe COPD, FEV1 33%
Recurrent left pleural effusion with left lower lobe consolidation/atelectasis
History of prostate cancer with radiation therapy
Peripheral arterial disease status post lower extremity stent/endarterectomy
Plan/recommendations
Remains critically ill sedated on a ventilator
Ventilator settings reviewed
ABG 01/06/2020 5-161/7.47
Spontaneous breathing trial-not a candidate at this time as mental status still extremely depressed
Nebulizers if needed-currently not bronchospastic-currently on DuoNebs and Pulmicort
VAP prevention protocol
Aspiration precautions
Severe COPD at baseline-FEV1 35% predicted
Follow x-ray
Mental status has not improved despite improvement in ammonia level
Nursing reporting some decerebrate posturing
Neurology evaluation 01/04/2025-reviewed
CT head 01/04/2025-possible increased intracranial pressure
After lengthy discussion the family would not want transfer/neurosurgical evaluation
Brain MRI unable to be performed due to ICD
Routine EEG 01/06/2025 pending
Follow hemoglobin--continues to follow
Transfuse as needed
PPI
Gastroenterology following-reviewed case with them
Hematology evaluation 01/05/2025-hemolysis versus low-grade DIC-extremely poor prognosis
Replace electrolytes including calcium
Norepinephrine and vasopressin weaned off
Stress dose steroids-hydrocortisone continue-begin to decrease to 50 mg IV every 12 hours-further wean in the next 24 hours
Lactulose continues
Follow ammonia level-improved without any change in his mental status
Recent paracentesis without evidence of SBP
Chronic left pleuroparenchymal process is noted
Required outpatient thoracenteses
Tracheal aspirate gram-negative bacilli
Blood culture Pseudomonas
Small left pleural effusion
Will consider left thoracentesis-depending on clinical course
Monitor renal vvtpeacp-kppsfukwf-vweweyt kidney disease stage III with baseline serum creatinine 1.9, now with GI bleed and received dye
Renal function appears to have stabilized
Nephrology following-not a continuous renal replacement therapy candidate
Bicarbonate as needed
Monitor cardiac status closely
Patient with known ischemic cardiomyopathy-EF 35% and now repeat echocardiogram 15%
Aspirin on hold due to rectal bleeding
ICD in place
Cardiology following-reviewed with them-Dr. Mayorga on 01/05/2025
Pressors weaned including norepinephrine and vasopressin
History of Rt lower extremity DVT and left upper extremity thrombophlebitis
IVC filter considered-hold off for now
Remains off anticoagulation given bleeding-INR elevated-suspect a component of DIC and auto anticoagulated
Cultures reviewed
Blood culture 03/06-Pseudomonas
Sputum culture-Pseudomonas
Infectious disease following
Antibiotics per infectious disease-correspondence reviewed
Monitor blood sugar
Insulin drip per protocol
Diabetic nurse practitioner
DVT prophylaxis: Mechanical on the left. rt DVT noted
GI prophylaxis: Protonix
Nutrition-begin tube feeds 01/03/20[address]
Dr[address] Tavares updated son and on multidisciplinary rounds 01/03/2025, 01/04/2025, 01/05/2025, and again on 01/06/2025-family now discussing whether withdrawal and comfort care may be the best option-not ready to go in this direction yet
Critical care statement: A total of 40 minutes of critical care time was provided for this patient today. This includes management of unstable vital signs, evaluation of the patient at bedside, reviewing the patient�s pertinent medical records
including radiographs, microbiology, laboratory evaluations, and��discussion with primary team, consultants, pharmacy, nutrition, physical therapy, case management, charge nurse, critical care nursing, and respiratory therapy.
Subjective Dataa
Subjective Data
Date of Service:
Date of Service: January 06, 2025
Chief Complaint: Knitter Hand Follow Up, Pulmonary Follow Up and Vent Management Follow Up
Subjective:
Shaking head, no purposeful movement, renal function without improvement, noncommunicative
Review of Systems
General: Other (Per HPI)
Objective Data
Data Reviewed
Vital Signs / I&O / Oxygen:
Vital Signs
Temp Pulse Resp BP Pulse Ox
99.7 F 100 22 131/43 100
01/06/25 03:08 01/06/25 07:10 01/06/25 07:10 01/05/25 18:02 01/06/25 07:11
Intake and Output
01/05/25 01/06/25 01/07/25
06:59 06:59 06:59
Intake Total 3573.3 / 3578.3 2370.0 / 2370.0
Output Total 1342 / 1400 1539.0 / 1539.0
Balance 2231.3 / 2178.3 831.0 / 831.0
SaO2 [ASV] 98
SaO2 [A/C] 99
SaO2 100
Nasal Cannula flow liters per 2
minute
Physical Exam
General: Respiratory Distress (n), Comfortable and Other (Upper extremity midline, A-line)
HEENT: Normocephalic, Anicteric and Moist Mucous Membranes
Cardiovascular: Regular Rhythm, Murmur (2/6 systolic murmur) and Rub (n)
Respiratory: Wheeze (n), Crackles (Few basilar), Rhonchi (n), Non-Labored Respirations, Accessory Resp Muscle Use (n), Stridor (n) and ET Tube
GI: Soft, Distended and Non Tender
Neurology: Lethargic (Sedated but does open eyes. Does not follow commands)
Skin: Warm, Good Color, Cyanosis (n), Jaundice (n), Rash (n) and Bruising (Few)
Labs/Micro/Reports
Lab Data
01/06/25 02:46
Laboratory Results
01/06/25 01/06/25
02:46 05:08
PT 20.6 H
INR 1.71
APTT 32.4
pH 7.46 H
pCO2 29 L
pO2 111 H
HCO3 20.6 L
O2 Delivery Level
Microbiology
12/31/24 20:09 Blood/Venous Blood Culture - Final
No Growth - Final Report
12/31/24 19:39 Blood/Venous Blood Culture - Final
No Growth - Final Report
01/01/25 11:36 Tracheal Aspirate Respiratory Culture - Final
Pseudomonas aeruginosa
01/01/25 11:36 Tracheal Aspirate Gram Stain - Final
[2025-01-06] MEDS: PROTONIX IV 40 MG IV ×2 (07:41→19:47)
[2025-01-06] MEDS: NSS (PRESERVATIVE FREE) 10 ML IV ×2 (07:41→19:47)
[2025-01-06] MEDS: SOLU-CORTEF 50 MG IV ×2 (07:42→19:47)
[2025-01-06] MEDS: DUPHALAC/CHRONULAC 20 GRAMS TUBE ×4 (07:44→21:42)
[2025-01-06] MEDS: XIFAXAN 550 MG TUBE ×2 (07:44→19:47)
--- NOTE | 2025-01-06 07:45 | PTCARENOTE ---
Assumed care of patient. Pt rec'd intubated on ventilator. Unrestrained. No purposeful movements. Responds to tactile and deep pain stimuli. + corneal...but inconsistent at times. Weak gag. Moves head back and forth...occasional foot
movements. S1 S2 reg w/ vpacing on monitor. Murmur noted. DP/PT's by doppler. +2 generalized edema. Left knee hi SCD. Heels elevated on pillows. #8 ETT 24cm left lip...current vent settings: 18/500/+5/30%...sats 100%. Lungs clear anteriorly.
Diminished w/ rhonchi in bilateral bases. Right nare dhf (77cm) w/ nepro @ 45ml/hr and 25ml/hr H20 flushes. Chávez draining bloody urine. Skin icteric in color. Scattered red and purple ecchymosis on chest area. Scattered optifoams noted.
Right radial misael...flushed and zeroed. Right TL PICC w/ insulin gtt infusing...pt on glycemic protocol. Safe environment confirmed.
[2025-01-06 08:06] LABS: Glucose - Point of Care 129 mg/dl (70-99)
--- NOTE | 2025-01-06 09:47 | W.PN.ONC2 ---
Today's Communication / Plan
-
family at bedside provided updates and questions answer
Impression
Impression
3rd admission since Nov 2024
multifactorial anemia including ABLA, BRBPR, renal dysfunction. Hgb nov 2024 ~9. s/p 7U PRBC during hospitalization
thrombocytopenia, less likely acute dic with normal fibrinogen
VDRF
HFrEF/ICM
MARIA DOLORES on CKD
Anasarca
pleural effusion s/p thora 12/03, cytology negative for malignancy
ascites s/p para 11/22, 11/18,and 11/03 negative for malignancy
Cirrhosis w/ Hx of hepatic encephalopathy
CAD - s/p CABG,
right gastrocnemius vein thrombosis
Plan
Plan
Complex patient with multiple issues contributing to anemia including GI bleed and renal dysfunction. haptoglobin that is pending will be difficult to interpret in the setting of cirrhosis
recommend FFP if INR >1.4 with significant bleeding
Transfuse PRBC as needed for maintaining HgB > 7.
transfuse platelets <20 prn, <50 if bleeding
0.5mg vitamin K -ordered for INR 1.7
would benefit from IVC filter with negative Bcx discussed with the hospitalist via tiger text and family at bedside
Subjective/Objective
Subjective
Tmax 100F overnight
VDRF
Vital Signs:
Vital Signs
Temp Pulse Resp BP Pulse Ox
99.3 F 97 19 135/40 100
01/06/25 07:51 01/06/25 09:30 01/06/25 09:30 01/06/25 07:42 01/06/25 09:30
Lab Results:
Laboratory Data
WBC 12.9 10^3/uL (4.8-10.8) H 01/06/25 02:46
Hgb 8.2 g/dL (13.0-18.0) L 01/06/25 02:46
Plt Count 38 10^3/uL (130-400) L 01/06/25 02:46
PT 20.6 Sec (11.4-14.6) H 01/06/25 05:08
INR 1.71 01/06/25 05:08
APTT 32.4 Sec (23.4-35.0) 01/06/25 05:08
eGFR 17.96 01/06/25 02:47
Physical Exam
Flexiseal with liquid brown stool
mcmahon with blood tinged urine
right arm wrapped in kerlix weeping serous fluid
HEENT: No Jaundice
Pulmonary: Other (VDRF)
GI: Soft and Distended
Extremities: Pulses Present and Edema (b/l lower extermity and general anasarca)
[2025-01-06 10:04] LABS: Glucose - Point of Care 131 mg/dl (70-99)
--- NOTE | 2025-01-06 10:17 | W.PN.ID1 ---
Date of Service
Date of Service: January 06, 2025
Today's Communication
Continue current antibiotics.
Assessment / Plan
Pseudomonas bacteremia
- History of Pseudomonas recovered from lungs
- Pseudomonas again recovered on 01/01 from the lungs.
DVT (gastrocnemius vein)
GI bleed
Anemia
Hepatic encephalopathy
Hyponatremia
Renal insufficiency; worsening
Elevated LFTs; trending up
DM
HLD
HTN
CAD; Hx MS
PAD
Hx prostate CA
V. tach
CHF with depressed EF
COPD
Recommendations:
Repeat blood cultures show no growth.
Cefepime changed to meropenem 01/03/2025 over concerns for encephalopathy
Leukocytosis improving.
With blood cultures negative, now safer to insert IVC filter if felt needed.
Continue with meropenem (day #7 abx)
Follow white count and temperature curve.
Continue with supportive measures.
Patient remains critically ill with hypoxemic respiratory failure in ICU.
Paramus remains extremely guarded at this time. Patient not DNR
����������������������������������������������������������
Chief Complaint
-: Leukocytosis, Clinical Sepsis, Bacteremia and Other (Hepatic encephalopathy)
Subjective / Review of Systems
Patient seen and examined. Remains on vent at this time.
Vital Signs / Physical Exam
Vital Signs
Vital Signs
Temp Pulse Resp BP Pulse Ox
99.3 F 97 19 135/40 100
01/06/25 07:51 01/06/25 09:30 01/06/25 09:30 01/06/25 07:42 01/06/25 09:30
Physical Exam
Constitutional: Acutely Ill and Toxic
Head: Other (ET tube in place. Nasal Dobbhoff in place.)
Eyes: Other (Scleral icterus noted)
Cardiovascular: Regular Rate and S1/S2; Negative S3/S4
Pulmonary: Clear and Coarse; Negative Wheezes or Rales
Gastrointestinal: Soft, Non Distended, Decreased Bowel Sounds, No Rebound, No Guarding and Other (Rectal tube in place with melena)
Genito-Urinary: Chávez and Hematuria
Extremities: Edema; Negative Cyanosis or Erythema
Skin: Jaundice
Neurological: Other (Sedated. Some response to voice and touch.)
Objective Data
Lab Data
Lab Results
01/06/25 02:46
PT 20.6 Sec (11.4-14.6) H 01/06/25 05:08
INR 1.71 01/06/25 05:08
APTT 32.4 Sec (23.4-35.0) 01/06/25 05:08
Estimated Creat Clear 21 ml/min 01/06/25 02:47
Total Bilirubin 3.2 mg/dl (0.2-1.3) H 01/05/25 02:36
AST 102 U/L (17-59) H 01/05/25 02:36
ALT 96 U/L (0-50) H 01/05/25 02:36
Alkaline Phosphatase 142 U/L (38-126) H 01/05/25 02:36
Most recent labs reviewed.
Micro Results:
12/31/24 20:09 Blood Culture - Final
Blood/Venous No Growth - Final Report
12/31/24 19:39 Blood Culture - Final
Blood/Venous No Growth - Final Report
01/01/25 11:36 Respiratory Culture - Final
Tracheal Aspirate Pseudomonas aeruginosa
Gram Stain - Final
12/28/24 12:27 Blood Culture - Final
Blood/Venous No Growth - Final Report
12/30/24 07:36 Blood Culture - Final
Blood/Venous Pseudomonas aeruginosa
Gram Stain - Final
Imaging:
12/30/2024 Duplex ultrasound lower extremity: there is an occlusive thrombus within the right gastrocnemius vein in the calf. There is spontaneous phasic flow with compressibility in the right common femoral, femoral and popliteal veins.
Care Review
Plan reviewed with: Physician (Critical Care)
--- NOTE | 2025-01-06 10:17 | W.PN.CD ---
Today's Communication / Plan
-
- Continue supportive care and management as per Senior Net Engineer/primary Hospitalist team.
- EF on 01/03/2025 15-20% down from 35% on 11/12/2024.
- Overall poor prognosis given acute illness, comorbidities, and multiorgan dysfunction.
- DNR noted; ICD remains active for now.
Impression / Plan
-
Background: 74 yo male (known to his accounting machine mechanic Dr. Damon at [facility]) with VT now off of amiodarone, MDT BiV ICD, heart block, pacer dependent, CAD s/p CABG, HFrEF, HTN, HLD, PAD, DM, cirrhosis of liver and prostate cancer, who presented to
the ER with weakness and recurrent BRBPR. Cardiology consulted for concern for acute on chronic HFrEF.
Sales And Leasing Agent: Nelson ([facility])
Patient with multiple complex issues including DVT, Pseudomonas bacteremia with possible to culture 12/30/2024. Worsening renal injury, worsening encephalopathy, respiratory failure. There was discussion regarding IVC filter but not placed due to
bacteremia. Patient was placed on Eliquis and has had issues with GI bleeding and had decreased level of responsiveness requiring intubation. Patient currently in ICU. Patient's received PRBCs and also pressor support.
VDRF/sepsis => improved, off pressors
- Remains intubated, critical.
- Continue supportive care and management as per Senior Net Engineer/primary Hospitalist team.
Acute on chronic HFrEF/ICM s/p ICD:
- EF on 01/03/2025 15-20% down from 35% on 11/12/2024.
- Overall poor prognosis given acute illness, comorbidities, and multiorgan dysfunction.
GI bleed, now controlled, rectal and suspected small bowl source
- s/p 9 Units PRBC transfused since 11/12/2024
MARIA DOLORES on CKD with hematuria
Anasarca
h/o VT and VF treated by his MDT BiV ICD, last ICD gen change 2020
- No recent VT/VF by device check 12/28/2024, but recently off Amiodarone
Complete heart block, pacer dependent, biv device in place
CAD - s/p CABG, stable w/o angina,continue ASA
Cirrhosis w/ Hx of hepatic encephalopathy
- GI comment 01/03/2025 noted: Decompensated with hepatic encephalopathy, ascites and thrombocytopenia, now with worsening hepatic encephalopathy likely precipitated by bleeding'
Venous, thrombosis-distal
DNR noted; ICD remains active for now.
Subjective: Remains intubated and not responsive
Data:
- TTE 11/12/2024: LVEF 35%, inferior and anteroseptal hypokinesis, normal RV, mild AAS, mild/mod TR, PASP 33 mmHg
Physical Exam
Vital Signs/Labs
Vital Signs
Temp Pulse Resp BP Pulse Ox
99.3 F 97 19 135/40 100
01/06/25 07:51 01/06/25 09:30 01/06/25 09:30 01/06/25 07:42 01/06/25 09:30
01/05/25 01/06/25 01/07/25
06:59 06:59 06:59
Actual Weight 95.4 kg 97 kg
01/06/25 02:46
PT 20.6 Sec (11.4-14.6) H 01/06/25 05:08
INR 1.71 01/06/25 05:08
APTT 32.4 Sec (23.4-35.0) 01/06/25 05:08
Magnesium 2.3 mg/dl (1.6-2.3) 01/04/25 03:43
Triglycerides 94 mg/dl (10-149) 01/05/25 02:36
12/26/24
11:15
Vfw-K-Ymqwiouqyul Pept 3170
LAB Results
01/03/25 01/03/25 01/04/25
10:12 17:49 03:43
Troponin I 0.208 H* 0.194 H* 0.152 H*
Physical Exam
Constitutional: Other (Intubated)
EENT: Anicteric
Cardiovascular: Rhythm & rate is regular, Pedal edema present (2+), Systolic murmur present (2/6) and S1S2 is normal
Respiratory: Other (Coarse bilateral breath sounds on vent)
GI: Soft
Neuro/Psych: Other (Intubated)
Other: Skin (Warm)
Data Reviewed
-
Date of Service: January 06, 2025
EKG: Tracing Personally Visualized and interpreted (Telemetry: Sinus rhythm, V paced)
Echo: Report Reviewed by me (01/03/2025: LVEF 15-20%, mild MR.)
Labs: Labs Reviewed by me
Critical Care Time (in minutes): 33
--- NOTE | 2025-01-06 10:22 | W.PN.NEPH.PH ---
Today's Communication / Plan
-
follow BMP
Assessment/Plan
-
Assessment
MARIA DOLORES (B/L cr 1.9 )
hyponatremia
Anemia
Hypokalemia
pancytopenia
HFrEF 35% with Moderate TR
GI bleed
cirrhosis
left pleural effusion
mild ascites
Plan
hold lasix today
follow BMP
follow hgb transfuse prn
replete lytes prn
rising BUN from steroids and GIB
prognosis is poor
I have discussed with on 01/02 that he is not a candidate for dialysis
critical care time 31 minutes
-
-
Date of Service: January 06, 2025
CC / HPI / ROS
-
Chief Complaint:
MARIA DOLORES
History of Present Illness:
critically ill in ICU on pressors
still on vent
Hgb up to 8.2 after transfusion
s/p CTA 12/31 without active bleed
MARIA DOLORES/Cr better at 3.4
BUN rising 152
sodium stable at 137
K low 3.1
Review of Systems:
intubated sedated
Labs
-
Labs:
WBC 12.9 10^3/uL (4.8-10.8) H 01/06/25 02:46
RBC 2.70 10^6/uL (4.70-6.10) L 01/06/25 02:46
Hgb 8.2 g/dL (13.0-18.0) L 01/06/25 02:46
Hct 24.5 % (39.0-52.0) L 01/06/25 02:46
Plt Count 38 10^3/uL (130-400) L 01/06/25 02:46
eGFR 17.96 01/06/25 02:47
Rfy-A-Rlisnxyxamu Pept 3170 pg/ml 12/26/24 11:15
Albumin 1.6 g/dl (3.5-5.0) L 01/05/25 02:36
Physical Exam
-
Vital Signs:
Vital Signs
Temp Pulse Resp BP Pulse Ox
99.3 F 97 19 135/40 100
01/06/25 07:51 01/06/25 09:30 01/06/25 09:30 01/06/25 07:42 01/06/25 09:30
Cardiovascular:: Regular rate and rhythm
Respiratory:: Bilateral: Coarse
Lung Excursion:: Normal
Abdomen:: Nontender and Soft
Bowel Sounds:: Normal
Extremity Edema:: +3: Bilateral:
--- NOTE | 2025-01-06 10:45 | PTCARENOTE ---
Family updated by multiple MD's. All questions answered. For EEG today.
[2025-01-06 11:19] LABS: Blood Urea Nitrogen 149 mg/dl (9-20); Calcium 8.9 mg/dl (8.4-10.2); Carbon Dioxide 20 mmol/L (22-30); Chloride 107 mmol/L (98-107); Estimated Creatinine Clearance 20 ml/min; Glucose 120 mg/dl (70-99); Potassium 3.2 mmol/L (3.5-5.1); Sodium 135 mmol/L (135-145); eGFR 16.77
--- NOTE | 2025-01-06 11:37 | W.PN.NEURO.1 ---
Addendum entered and electronically signed by Philip Wiggins MD 01/06/25 14:16:
Studies independently reviewed.
I have personally examined the patient. I reviewed and agree with the LOCOMOTIVE CRANE ENGINEER's Note.
My addenda:
Unresponsive to verbal or physical stimulation. No acute distress.
Speech mute, intubated
Does spontaneously turn head from [id number] intermittently with questionable withdraw to pain briefly in extremities
Pupils minimally responsive to light, slow eyelid closure after passive lid opening bilaterally. Negative doll's eyes
Neck: full ROM.
Chest: no dyspnea
Heart: no JVD
Ext: (-) Clubbing, (-) Cyanosis, (-) Edema
IMPRESSIONS/RECOMMENDATIONS:
Abrupt onset of change in mental status. Differential diagnosis includes hepatic encephalopathy with the patient's ammonia levels extremely elevated at times leading to possible increased intracranial pressure. Less likely but possible includes
bihemispheric stroke as well as anoxic encephalopathy. Given insignificant changes to evidence of return of consciousness, the prognosis for meaningful neurological recovery is poor
Recheck EEG to determine if there are changes consistent with interhemispheric asymmetry
Continue to pursue reduced ammonia levels
Continue aspirin
Will follow
Original Note:
Documented by User: Monica Juarez NP 01/06/25 11:49
Today's Communication / Plan
-
.
Neuro Assessment/Plan
Assessment
Abrupt onset of change in mental status. Differential diagnosis includes hepatic encephalopathy with the patient's ammonia levels extremely elevated and relatively narrow ventricles.
After suggestion of neurosurgical salesforce consultant, comparison with imaging from 2019 indicated that there was possibly no significant change in the patient's ventricular size from then to now by repeated CAT scan of the head.
Differential diagnosis also includes bilateral embolic events. Currently no evidence of status epilepticus by EEG.
Plan
Unable to check MRI of brain due to AICD
Routine EEG pending today.
Continue goal of reducing ammonia levels
Continue aspirin 81mg daily
Will follow peripherally
Subjective/Objective
Subjective Data
Date of Service: January 06, 2025
No significant change overnight.
Objective Data
Vital Signs
Temp Pulse Resp BP Pulse Ox
99.3 F 97 19 135/40 100
01/06/25 07:51 01/06/25 09:30 01/06/25 09:30 01/06/25 07:42 01/06/25 11:12
Lab Results
01/06/25 02:46
01/06/25 09:51
PT 20.6 Sec (11.4-14.6) H 01/06/25 05:08
INR 1.71 01/06/25 05:08
APTT 32.4 Sec (23.4-35.0) 01/06/25 05:08
Sodium 135 mmol/L (135-145) 01/06/25 09:51
Potassium 3.2 mmol/L (3.5-5.1) L 01/06/25 09:51
BUN 149 mg/dl (9-20) H* 01/06/25 09:51
Glucose 120 mg/dl (70-99) H 01/06/25 09:51
Calcium 8.9 mg/dl (8.4-10.2) 01/06/25 09:51
Zqm-I-Skzhdaogjen Pept 3170 pg/ml 12/26/24 11:15
Patient Allergies
erythromycin base (Erythromycin Base) Allergy (Verified 12/21/24 10:46)
contraindicated (see comment)
Review of Systems
-
Unable to obtain full review of systems at this time due to: Acuity and Patient Intubation
Physical Exam
-
General: Appears Chronically Ill
Eyes: PERRLA
HEENT: Normocephalic and Atraumatic
GI: Non-distended
Extremities: Pitting Edema
Extended Neurological Exam
Mood & Affect: Unable to Assess
Attention Span & Concentration: Unresponsive to Verbal Stimuli and Unresponsive to Physical Stimuli (withdraws to painful stimuli)
Memory: Unable to Assess
Tremor: Hand Tremor Absent and Other (there is a head-turning repetitive movement, spontaneously moves the feet at times)
Speech: Unable to Assess
Cranial Nerve II: Left Eye: Pupillary Reactivity Unremarkable, Pupillary Size Unremarkable and Unable to Assess Visual Morocho
Cranial Nerve II: Right Eye: Pupillary Reactivity Unremarkable, Pupillary Size Unremarkable and Unable to Assess Visual Morocho
Cranial Nerves III, IV, : Extraocular Movement: Unable to Assess
Cranial Nerve V: Facial Sensation: Unable to Assess
Cranial Nerve VII: Facial Symmetry: Normal Facial Symmetry
Cranial Nerve VIII: Hearing: Unable to Assess
Cranial Nerves IX, X: Palate Movement: Unable to Assess
Cranial Nerve XI: Shoulder Shrug: Unable to Assess
Cranial Nerve XII: Tongue Protusion: Unable to Assess
Muscle Strength, Overall: Spontaneously Moves (b/l feet at times)
Pronator Drift: Unable to Assess
Vibration Sensation: Unable to Assess
Touch Sensation: Withdrawal to Pain
Coordination: Unable to Assess
Babinski Sign: Present on Left
Modified Marion Score (MRS)
-
Modified Marion Scale (mRS): Severe disability. Requires constant nursing care.
Score: 5
Data Reviewed
-
CT Head: Report Reviewed and Image Reviewed
EEG: Report Reviewed
Reviewed with: Physician and Nurse
Medications
-
Active Medications
Generic Name Dose Route Start Last Admin
Trade Name Freq PRN Reason Stop Dose Admin
Albuterol/Ipratropium 3 ml 01/02/25 15:18
Ipratropium 0.5/Albuterol 3 Mg (3 Ml Ampul) INH
R QID PRN
sob
Protocol
Ascorbic Acid 500 mg 12/27/24 08:00 12/31/24 07:48
Ascorbic Acid 500 Mg Tablet PO 01/24/25 07:59 500 mg
On Hold: 12/31/24 18:42 DAILY CRISPIN Administration
Aspirin 81 mg 12/26/24 22:00 12/30/24 21:55
Aspirin 81 Mg (Enteric Coated) Tablet PO 01/23/25 21:59 81 mg
On Hold: 12/31/24 18:41 HS CRISPIN Administration
Atorvastatin Calcium 40 mg 12/28/24 18:00 12/31/24 17:31
Atorvastatin (Lipitor) 40 Mg Tablet PO 01/25/25 17:59 Not Given
On Hold: 12/31/24 18:42 QPM CRISPIN
Benzocaine/Menthol 1 lozenge 12/28/24 12:41 12/28/24 17:28
Benzocaine/Menthol Lozenge PO 01/25/25 12:40 1 lozenge
Q4HPRN PRN Administration
sore throat
Budesonide 0.5 mg 01/01/25 08:00 01/06/25 07:09
Budesonide (Pulmicort Respules) 0.5 Mg/2 Ml INH 0.5 mg
R BID CRISPIN Administration
Protocol
Dextrose 12.5 grams 01/03/25 12:11
Dextrose 50% (0.5 Grams/Ml) 50 Ml Syringe IV 01/31/25 12:10
[id number] PRN
Blood Glucose < 70
Fentanyl Citrate 50 mcg 01/01/25 02:32 01/06/25 04:19
Fentanyl (50 Mcg/Ml) 100 Mcg/2 Ml Ampul IV 01/15/25 02:31 50 mcg
[id number] PRN Administration
see protocol
Protocol
Ferrous Sulfate 325 mg 12/26/24 18:00 12/30/24 18:15
Ferrous Sulfate 325 Mg Tablet PO 01/23/25 17:59 325 mg
On Hold: 12/31/24 18:43 Q48H CRISPIN Administration
Folic Acid 0.5 mg 12/26/24 22:00 12/30/24 21:56
Folic Acid 0.5 Mg (1/2 Of A 1 Mg Tablet) PO 01/23/25 21:59 0.5 mg
On Hold: 12/31/24 18:42 HS CRISPIN Administration
Furosemide 80 mg 12/30/24 10:00 12/31/24 17:26
Furosemide 100 Mg (10 Mg/Ml) 10 Ml Vial IV 01/27/25 09:59 Not Given
On Hold: 12/31/24 18:42 BID AT 0800,1600 CRISPIN
Guaifenesin 600 mg 12/26/24 20:00 12/31/24 07:48
Guaifenesin 600 Mg Extended Release Tablet PO 01/23/25 19:59 600 mg
On Hold: 12/31/24 18:42 BID CRISPIN Administration
Hydrocortisone Sodium Succinate 50 mg 01/05/25 20:00 01/06/25 07:42
Hydrocortisone Sodium Succinate 100 Mg/2 Ml Vial IV 02/02/25 19:59 50 mg
Q12 CRISPIN Administration
Meropenem 500 mg/ Sodium 60 mls @ 15 mls/hr 01/03/25 13:00 01/06/25 00:17
Chloride IV 60 mls
Q12H CRISPIN Administration
Insulin Human Regular 100 units in 100 mls @ 0 mls/hr 01/03/25 12:15 01/05/25 23:38
Novolin R Insulin Infusion IV 100 mls
PER PROTOCOL CRISPIN Administration
Protocol
Per Protocol
Insulin Aspart 6 units 01/05/25 12:00 01/06/25 05:48
Insulin Aspart (Novolog) 100 Units/Ml 3 Ml Flexpen SC 02/02/25 11:59 6 units
Q6 CRISPIN Administration
Lactulose 20 grams 01/03/25 08:00 01/06/25 07:44
Lactulose Solution (20 Grams/30 Ml) 30 Ml Cup TUBE 01/31/25 07:59 20 grams
QID CRISPIN Administration
Mesalamine 1,000 mg 12/31/24 22:00 01/05/25 22:04
Mesalamine 1000 Mg Rectal Suppository RECTAL 01/28/25 21:59 Not Given
HS CRISPIN
Miconazole Nitrate 0 applic 01/03/25 19:33
Miconazole Powder Bottle TOPICAL 01/31/25 19:32
BIDPRN PRN
MASD
Midodrine 10 mg 01/02/25 21:24 01/06/25 07:42
Midodrine 5 Mg Tablet TUBE 01/27/25 12:59 Not Given
TID@0800,1300,1800 CRISPIN
Multivitamins Therapeutic 1 tablet 12/26/24 18:00 12/31/24 17:32
Multivitamin Tablet PO 01/23/25 17:59 Not Given
On Hold: 12/31/24 18:42 QPM CRISPIN
Pantoprazole Sodium 40 mg 01/01/25 08:00 01/06/25 07:41
Pantoprazole Sodium 40 Mg/10 Ml Vial IV 01/29/25 07:59 40 mg
BID CRISPIN Administration
Polyethylene Glycol 17 grams 01/03/25 08:00 01/03/25 06:31
Polyethylene Glycol Powder 17 Grams Packet TUBE 01/31/25 07:59 Not Given
On Hold: 01/03/25 08:00 DAILY CRISPIN
Rifaximin 550 mg 01/02/25 21:24 01/06/25 07:44
Rifaximin 550 Mg Tablet TUBE 01/25/25 08:01 550 mg
BID CRISPIN Administration
Sodium Chloride 0 flush 12/26/24 19:00 01/03/25 17:54
Sodium Chloride 0.9% (Flush) Syringe IV 01/23/25 18:59 1 flush
PER PROTOCOL CRISPIN Administration
Sodium Chloride 1 sprays 12/28/24 04:18 12/28/24 17:26
Sodium Chloride 0.65% Nasal Bowdle 45 Ml Bottle NASAL 01/25/25 04:17 1 sprays
QIDPRN PRN Administration
nasal dryness
Sodium Chloride 10 ml 01/01/25 08:00 01/06/25 07:41
Sodium Chloride 0.9% (Preservative Free) 10 Ml Vial IV 01/29/25 07:59 10 ml
BID CRISPIN Administration
Trimethobenzamide HCl 200 mg 12/31/24 16:03 12/31/24 17:09
Trimethobenzamide 200 Mg/2 Ml Vial IM 01/28/25 16:02 200 mg
Q6HPRN PRN Administration
nausea
Home Medications
�Medication �Instructions �Recorded
ascorbic acid (vitamin C) 500 mg 500 mg PO DAILY Supplement 09/25/18
tablet (Vitamin C)
aspirin 81 mg tablet,delayed 81 mg PO HS Blood clot 08/07/20
release prevention/tx ##0
folic acid 400 mcg tablet 0.4 mg PO HS Supplement ##0 08/07/20
furosemide 80 mg tablet 80 mg PO BID@0800,1600 30 days #60 11/24/24
tabs
insulin lispro 100 unit/mL 5 unit (0.05 mL) SC AC with meals 11/24/24
subcutaneous pen (Humalog KwikPen 30 days #90 ea
(U-100) Insulin)
rifaximin 550 mg tablet (Xifaxan) 550 mg PO BID 30 days #60 tabs 11/24/24
guaifenesin 600 mg tablet, 600 mg PO BID Congestion 12/02/24
extended release 12 hr (Mucinex)
tiotropium bromide 2.5 2 puff inhalation R DAILY 12/02/24
mcg/actuation mist for inhalation Lung/Breathing Issues
(Spiriva Respimat)
albuterol sulfate 90 mcg/actuation 2 puff inhalation R QIDPRN PRN sob 12/26/24
aerosol inhaler
ferrous sulfate 325 mg (65 mg 325 mg PO Q48H Supplement 12/26/24
iron) tablet
fluticasone propionate 230 2 puff inhalation R BID 12/26/24
mcg-salmeterol 21 mcg/actuation Lung/Breathing Issues
HFA inhaler (Advair HFA)
lactulose 10 gram/15 mL oral 10 g PO BID-TID Liver Issues 12/26/24
solution
metolazone 2.5 mg tablet 2.5 mg PO DAILY Fluid 12/26/24
Retention/Swelling
midodrine 5 mg tablet 5 mg PO BID Hypotension 12/26/24
therapeutic multivitamin 1 tab PO QPM Supplement 12/26/24

Documented by User: Philip Wiggins MD 01/06/25 14:07
Modified Marion Score (MRS)
-
Score: 5
--- NOTE | 2025-01-06 11:45 | PN.DE.MGMTRT ---
Insulin Management
- -
01/06/2025: Diabetes Management Consult Follow up
74 year old male admitted 12/26 with acute on chronic rectal bleeding diabetes management consult 01/03. PMH: HTN, HLD, ICM EF 35%, CAD s/p bypass surgery, h/o VT, ICD, Severe COPD, FEV1 33%, PAD s/p lower extremity stent/endarterectomy, Liver
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 A1C 5.6%, Cr 3.7, eGFR 16.23.
Hospital course complicated by renal insufficiency, bacteremia, worsening hepatic encephalopathy with an ammonia level of 200, anemia requiring blood transfusion, and Hypotension requiring pressors, transferred to ICU requiring intubation 01/01/2025.
Pt remains critically ill, intubated, unable to interview, no family at bedside.
On stress dose steroids- Hydrocortisone 50mg Q12 hrs contributing to hyperglycemia.
01/04 Initiated SC novolog 4 units Q 6 hours in addition to glycemic protocol as insulin infusion up to 7 units per hour.
Critical care glycemic protocol insulin infusion has been continued overnight.
01/05 Glucose range 148 to 161, requiring 3.5 to 5 units of insulin per hour. Will increase Q 6 hours novolog to 6 units SQ, first dose at 12 noon.
01/06 Glucose range 126 to 152. Critical care glycemic protocol continues requiring 4 to 5 units of insulin with supplemental 6 units sc. Tube feeds remain at 45/hr. Steroids have been reduced to Q 6hours 50 mg. Will continue glycemic protocol
and supplemental SC insulin.
Discussed with nurse.
Will follow
Diabetes History
- -
Type of Diabetes: 2 requiring insulin
Pre-Admission Diabetes Regimen
01/05/25 01/06/25 01/06/25
14:15 02:47 09:51
Creatinine 3.7 H 3.4 H 3.6 H
Lab Results
Hemoglobin A1c Cancelled 01/03/25 12:11
Insulin Pump Settings
IP Diabetes Regimen
01/05/25 01/05/25 01/05/25
11:59 14:10 14:15
Glucose 116 H
POC Glucose 164 H 134 H
01/05/25 01/05/25 01/05/25
16:28 17:55 19:59
Glucose
POC Glucose 148 H 152 H 153 H
01/05/25 01/05/25 01/06/25
22:02 23:41 02:07
Glucose
POC Glucose 147 H 145 H 151 H
01/06/25 01/06/25 01/06/25
02:47 04:01 05:50
Glucose 131 H
POC Glucose 128 H 126 H
01/06/25 01/06/25 01/06/25
07:55 09:51 09:52
Glucose 120 H
POC Glucose 129 H 131 H
Patient Education
--- NOTE | 2025-01-06 12:00 | PTCARENOTE ---
No major changes in physical assessment since am. Family at bedside...updated and questions answered. Moves head back and forth. Slight opening of eyes. Does not follow commands...no purposeful movements noted. Safe environment confirmed.
[2025-01-06 12:07] LABS: Glucose - Point of Care 136 mg/dl (70-99)
[2025-01-06 13:09] LABS: Glucose - Point of Care 141 mg/dl (70-99)
[2025-01-06] MEDS: AQUAMEPHYTON 50.05 MG IV (13:15)
--- NOTE | 2025-01-06 13:48 | W.PN.HOSP.TC ---
Today's Communication/Plan
-
Assessment / Plan
Assessment / Plan
Endotracheal intubated, NGT noted
With jaundice
Scleral Anicteric
MMM
No JVD
CTABL
RRR, S1/S2
Soft, NT, ND, BS+
Warm, Dry
Concern for posturing
#Hepatic encephalopathy
- Required intubation on 12/31/2024 due to worsening mental status, ammonia near 200
- Was transition from oral lactulose to lactulose via OGT with Xifaxan continued
- CT head without contrast without acuity, no signs of cerebral edema
- Will continue with lactulose and Xifaxan, no utility to trending NH4
- DHT placed today for lactulose administration, increased to 20 TID
- Monitor MSE, avoid sedating agents as able
- Goal of 3-4 BM daily
Sepsis concern for posturing not awakening and has been off of sedatives with improvement in ammonia. Neurology consulted urgently and came to bedside. CT brain obtained. Per neurology via [facility] text ventricles or squeeze to catheter. For
increased intracranial pressure. May require external ventricular decompression. Therefore reach out to neurosurgery over [facility] text.. They reviewed CT brain from today and 2021 similar appearance. Will attempt to get MRI may be difficult with
pacemaker
Check EEG per neurology recommendations
#Circulatory shock
#Pseudomonas bacteremia
- Likely septic shock; unclear source, question urinary versus pulmonary versus gut/translocation
- Resolved circulatory shock on 12/28. Blood cultures were taken on 12/28 after pressors were started overnight.
- 1 Cx obtained at that time which was negative, however second blood culture was not taken until 12/30 was +
- Was started on IV cefepime and infectious disease was consulted; repeat blood cultures obtained
- Became hypotensive when intubated, was started on Levophed for hemodynamic support
- ID changed cefepime to meropenem
- Continue Levophed and vasopressin with MAP goal >65, wean as able
- Continue with midodrine
- Follow repeat blood cultures ngtd
- Sputum cx + for pseudomonas
#VDRF
#Left-sided pleural effusion
- Was intubated evening of 12/31/2024 with encephalopathy
- Imaging showing large left pleural effusion with possibly some atelectasis
- Does have positive blood cultures with Pseudomonas, cannot rule out pneumonia
- Discussed with ICU, no need for diagnostic thoracentesis, will reassess Friday and consider Thora
- Wean FiO2 as able, daily SAT/SBT
- Trend ABG and daily CXR
#ABLA secondary to LGIB
#Anemia of chronic disease
#DIC
# ?ongoing consumptive porcess, not actively seeing bleeding
- Received 7 unit of PRBC here and hemoglobin stabilized; had rebleeding on Eliquis
- S/p flex sig on 12/27 with bleeding ectasias that received APC
- Upper endoscopy demonstrated angioectasias without bleeding the
- Now holding anticoagulation, currently on IV PPI BID
- GI following, may need additional endoscopy and intervention to radiation proctitis
- LDH/ Hapto/Peripheral smear
- S/p 2u FFP, Last unit on 01/04 for low grade DIC
- Maintian Hgb >7
- Hematology consult
#Oliguric MARIA DOLORES on CKD
#Cardiorenal physiology
#Hepatorenal syndrome (?)
- Baseline creatinine near 2, up to 3.1 here. Likely cardiorenal physiology with HFrEF and EF 35%.
- Metolazone discontinued; s/p IV Lasix, IV Lasix has since been discontinued due to shock
- Most recent creatinine 2.9; trend BMP, UOP, I's and O's, and daily weights.
- Continue with midodrine and levophed for MAP goal >65 mmHg.
- Holding IV Lasix and optimize hemodynamics
- Avoid nephrotoxins
- Poor candidate for HD
#RLE DVT
- Ultrasound positive for DVT; did not tolerate reinitiation of Eliquis with GI bleeding
- Discussed with IR about IVC filter however currently with positive blood cultures as above
- Will consider IVC filter once blood cultures negative x 48 hours, plan repeat US as well
#Elevated troponin
- Likely nonischemic myocardial injury secondary to shock and anemia in context of obstructive CAD
- Holding antiplatelet agents and anticoagulations due to bleeding, currently on statin
- Continue to trend troponin to peak, serial ECG, telemetry
#Liver cirrhosis C/B ascites, HE, thrombocytopenia
#Chronic transaminitis
- Question of amiodarone induced liver toxicity, recently was discontinued
- MELD 3.0 score of 30; correlating to 73% to 60 days survival
- Home regimen includes Lasix, lactulose + Xifaxan, midodrine
- Recently had therapeutic paracentesis, no signs of SBP
- Holding home diuretics as above, monitor for recurrence of ascites
#Hypervolemic hyponatremia
- improving with FR diet and holding home diuretic; fluid restriction down to 40 now
- Serum sodium back to 127; nephrology following ; s/p 1 dose of Samsca on 12/30/2024
- Most recent serum sodium 129, to trend BMP
- Monitor volume status, I's and O's, weight
- Consider repeat urine studies if worsened
#Acute on chronic HFrEF
#Ischemic cardiomyopathy
#CAD s/p CABG
- Last TTE with LVEF 35%, mild aortic stenosis, preserved RV function
- Not receiving GDMT due to chronic hypotension and renal insufficiency
- home Diuretic regimen includes Lasix 80 mg twice daily and metolazone 2.5 mg daily
- Diuretics currently on hold here; remains on aspirin and statin
- Continue to trend I's and O's, daily weights
#History of VT
-Previous regimen included amiodarone which was discontinued due to likely associated liver disease
-No longer on any antiarrhythmic therapy, including beta-hemant or CCB
-Has AICD currently in place
#COPD
- Likely GOLD A-B; Home regimen includes Trelegy equivalent with Advair and Spiriva
- No recent pulmonary function test available to review
- No signs of COPD exacerbation on home regimen
#IDDM-2
- Home regimen previously included metformin; insulin lispro 5 units with meals
- Metformin was discontinued; remains on ISS alone
- Blood glucose goal 140-180
#H/O prostate cancer S/P XRT C/B radiation proctitis
#PAD s/p stent and endarterectomy
- Home regimen includes aspirin, not currently on statin per our records
- Will resume nightly statin at atorvastatin 20 mg for now
- Follow-up as OP and uptitrate as needed, LDL goal <70
# Stage II pressure injury on sacrum; present on admission
DVT prophylaxis: SCDs
GI prophylaxis: IV PPI
Diet: NPO for now
CODE STATUS: Full code
Disposition: TBD
Discussed with ICU
Prognosis is guarded to poor, may be heading towards comfort care
EEG today per neurology
Son leaning towards comfort care held for life is not the area
Anticipated Discharge: > 48 hours
Subjective/Interval History
-
Date of Service: January 06, 2025
Seen and examined. Remains intubated. Off sedatives. Off pressors
Objective Data
-
Labs:
Laboratory Results
01/06/25 01/06/25 01/06/25
02:46 02:47 05:08
WBC 12.9 H
Hgb 8.2 L
Hct 24.5 L
Plt Count 38 L
PT 20.6 H
INR 1.71
APTT 32.4
HCO3 20.6 L
Sodium 137
Potassium 3.1 L
Chloride 106
Carbon Dioxide 20 L
BUN 152 H*
Creatinine 3.4 H
Glucose 131 H
Calcium 8.9
01/06/25
09:51
WBC
Hgb
Hct
Plt Count
PT
INR
APTT
HCO3
Sodium 135
Potassium 3.2 L
Chloride 107
Carbon Dioxide 20 L
BUN 149 H*
Creatinine 3.6 H
Glucose 120 H
Calcium 8.9
Vital Signs:
Vital Signs
Temp Pulse Resp BP Pulse Ox
99.4 F 97 19 144/39 99
01/06/25 12:00 01/06/25 12:30 01/06/25 12:30 01/06/25 12:27 01/06/25 12:30
I&O
01/05/25 01/06/25 01/07/25
06:59 06:59 06:59
Intake Total 3573.3 / 3578.3 2370.0 / 2609.0 948 / 948
Output Total 1342 / 1400 1539.0 / 1639.0 445 / 445
Balance 2231.3 / 2178.3 831.0 / 970.0 503 / 503
--- NOTE | 2025-01-06 14:00 | PTCARENOTE ---
EEG being done at bedside.
[2025-01-06 14:14] LABS: Glucose - Point of Care 136 mg/dl (70-99)
[2025-01-06 15:07] LABS: Glucose - Point of Care 129 mg/dl (70-99)
--- NOTE | 2025-01-06 15:33 | EEG.RPT ---
Electroencephalogram Report
Recording
Date of EE01/06/25
Type of EEG: Routine
Length of EEG recordin hour 3 minutes
Done with Video Recording: Yes
Patient Status: Inpatient
Recording Conditions: Awake and Drowsy
Hyperventilation Performed: No
Photic Stimulation Performed: Yes
Report
GREATER THAN 1 HOUR REPORT
GREATER THAN 1 HOUR EEG INTERPRETATION:
Moderately�severely abnormal EEG for age due to diffuse bihemispheric slowing
CLINICAL CORRELATION:
This study was suggestive of diffuse cortical dysfunction without focal abnormality. No seizures were recorded. In comparison with the study performed on 01/04/2025, this study is mildly improved in that triphasic waves demonstrated at that time
were not seen on this study. The patient's head turning was not associated with epileptiform activity.
Clinical correlation is advised.
METHODS:
A 21 channel digitized electroencephalogram (EEG) was performed at the bedside. The 10/20 international system of electrode placement was used with ECG and lateral/vertical eye movements recorded. The [employer] quantitative measurement system was
utilized.
QUALITY OF STUDY:
Fair to good due to muscle and sweat artifacts
ELECTROENCEPHALOGRAPHER IMPRESSION(S):
Background
Medium amplitude poorly organized anterior-posterior voltage gradient of delta maximal activity
There were no significant asymmetries of background activity noted.
Sleep
Drowsiness present
Photic Stimulation
Failed to activate the record
ECG
Normal sinus rhythm
--- NOTE | 2025-01-06 16:00 | PTCARENOTE ---
Pt reassessed. No major changes. VS documented. Safe environment confirmed. Will continue to monitor.
--- NOTE | 2025-01-06 16:03 | CM ---
Chart reviewed patient is currently intubated, will follow with progress.
Plan; To follow with patient progress and assist with discharge planning needs.
[2025-01-06 16:10] LABS: Glucose - Point of Care 136 mg/dl (70-99)
[2025-01-06 18:08] LABS: Glucose - Point of Care 137 mg/dl (70-99)
[2025-01-06 20:18] LABS: Glucose - Point of Care 143 mg/dl (70-99)
[2025-01-06] MEDS: ROWASA, CANASA SUPPOSITORY RECTAL (21:42)
[2025-01-06 22:01] LABS: Glucose - Point of Care 138 mg/dl (70-99)
[2025-01-07 00:23] LABS: Glucose - Point of Care 152 mg/dl (70-99)
[2025-01-07] MEDS: NOVOLIN R INSULIN INFUSION 100 IV ×2 (00:37→23:15)
[2025-01-07] MEDS: MERREM 60 MG IV ×2 (00:38→12:04)
[2025-01-07] MEDS: NOVOLOG FLEXPEN 6 UNITS SC ×3 (00:38→12:03)
[2025-01-07 02:02] LABS: Glucose - Point of Care 151 mg/dl (70-99)
[2025-01-07 03:47] LABS: INR 1.74; PT 20.9 Sec (11.4-14.6)
[2025-01-07 04:02] LABS: Hematocrit 24.2 % (39.0-52.0); Hemoglobin 8.3 g/dL (13.0-18.0); Mean Corp Hgb Conc. 34.3 g/dL (33.0-37.0); Mean Corpuscular Volume 93.1 fL (80.0-94.0); Platelet Count 42 10^3/uL (130-400); Red Cell Dist. Width 19.8 % (11.5-14.5)
[2025-01-07 04:10] LABS: Calcium 8.5 mg/dl (8.4-10.2); Carbon Dioxide 20 mmol/L (22-30); Chloride 109 mmol/L (98-107); Estimated Creatinine Clearance 20 ml/min; Glucose 143 mg/dl (70-99); Magnesium 3.0 mg/dl (1.6-2.3); Potassium 2.7 mmol/L (3.5-5.1); Sodium 138 mmol/L (135-145); eGFR 16.77
[2025-01-07 04:14] LABS: Glucose - Point of Care 169 mg/dl (70-99)
[2025-01-07 04:22] LABS: Blood Urea Nitrogen 150 mg/dl (9-20)
[2025-01-07 04:40] LABS: Ammonia 26 umol/L (9-30)
[2025-01-07] MEDS: KCL 100 IV ×2 (04:40→15:11)
[2025-01-07] MEDS: KCL ELIXIR 40 MEQ TUBE (04:40)
--- NOTE | 2025-01-07 04:47 | PTCARENOTE ---
pt spontaneously opening eyes, MCDONNELL, thrashing head back and forth in bed. remains nonpurposeful, not following commands. #8.0, 24cm in center. AC 18/500/5/30%, overbreathes vent. mcmahon w/ adequate UOP, urine dark red/rust colored. GP continues.
potassium repleted this morning. new foam applied to sacral wounds. weeping continues to b/l UE. care continues.
[2025-01-07 05:45] VITALS: BMI 30.5
[2025-01-07 05:59] LABS: Glucose - Point of Care 166 mg/dl (70-99)
--- NOTE | 2025-01-07 07:33 | W.PN.INTV ---
Today's Communication / Plan
Recommendations
Antibiotics
No change in hydrocortisone
Spontaneous breathing trial-check ABG if tolerated and if extubated family would not want reintubation
Assessment
-
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
kidney disease baseline creatinine 1.9, history of ischemic cardiomyopathy with bypass surgery EF 35%, admitted 12/26/2024 for rectal bleeding. Hospital course complicated by renal insufficiency, bacteremia, worsening hepatic encephalopathy,
transferred to ICU requiring intubation 01/01/2025
VDRF, intubated for airway protection, mental status changes 01/01/2025
Hepatic encephalopathy, ammonia level 200
Acute lower GI bleed, secondary to radiation proctitis
Requiring transfusion
Left upper extremity swelling with superficial thrombophlebitis
Right lower extremity DVT
Eliquis therapy 12/03/2024, now discontinued
Liver cirrhosis
Ascites, hepatic encephalopathy, thrombocytopenia
Chronic transaminitis
Acute renal insufficiency, baseline creatinine 1.9, worsening
Hypotension requiring pressors
Suspect multifactorial (bleeding, renal failure, liver failure, cardiomyopathy)
Conditions present prior to admission:
Hypertension/hyperlipidemia
Ischemic cardiomyopathy, EF 35%
History of VT, ICD
Amiodarone therapy in the past
Coronary disease bypass surgery
Insulin-dependent diabetes
Severe COPD, FEV1 33%
Recurrent left pleural effusion with left lower lobe consolidation/atelectasis
History of prostate cancer with radiation therapy
Peripheral arterial disease status post lower extremity stent/endarterectomy
Plan/recommendations
Remains critically ill sedated on a ventilator
Ventilator settings reviewed
ABG 01/06/2020 5-161/7.47
Spontaneous breathing trial-attempted today with improvement in neurologic status
If patient extubated family does not want patient reintubated
Nebulizers if needed-currently not bronchospastic-currently on DuoNebs and Pulmicort
VAP prevention protocol
Aspiration precautions
Severe COPD at baseline-FEV1 35% predicted
Follow x-ray
Mental status has improved-ammonia level down
Neurology evaluation 01/04/[id number] have been following since
CT head 01/04/2025-possible increased intracranial pressure
After lengthy discussion the family would not want transfer/neurosurgical evaluation
Brain MRI unable to be performed due to ICD
Routine EEG 01/06/2025-without seizure activity
Follow hemoglobin--continues to follow
Transfuse as needed
PPI
Gastroenterology following-reviewed case with them
Hematology evaluation 01/05/2025-hemolysis versus low-grade DIC-extremely poor prognosis
Replace electrolytes including calcium
Norepinephrine and vasopressin weaned off
Stress dose steroids-hydrocortisone continue-begin to decrease to 50 mg IV every 12 hours-further wean in the next 24 hours
Lactulose continues
Follow ammonia level-improved without any change in his mental status
Recent paracentesis without evidence of SBP
Chronic left pleuroparenchymal process is noted
Required outpatient thoracenteses
Tracheal aspirate gram-negative bacilli
Blood culture Pseudomonas
Small left pleural effusion
Will consider left thoracentesis-depending on clinical course
Monitor renal gswwwuvv-nulavkksj-isolaac kidney disease stage III with baseline serum creatinine 1.9, now with GI bleed and received dye
Renal function appears to have stabilized
Nephrology following-not a continuous renal replacement therapy candidate
Bicarbonate as needed
Monitor cardiac status closely
Patient with known ischemic cardiomyopathy-EF 35% and now repeat echocardiogram 15%
Aspirin on hold due to rectal bleeding
ICD in place-if patient family decides comfort measures then ICD may need to be turned off
Cardiology following-reviewed with them-Dr. Mayorga on 01/05/2025
Pressors weaned including norepinephrine and vasopressin
History of Rt lower extremity DVT and left upper extremity thrombophlebitis
IVC filter considered-hold off for now as patient and family may be moving towards comfort measures
Remains off anticoagulation given bleeding-INR elevated-suspect a component of DIC and auto anticoagulated
Cultures reviewed
Blood culture 03/06-Pseudomonas
Sputum culture-Pseudomonas
Infectious disease following
Antibiotics per infectious disease-correspondence reviewed
Monitor blood sugar
Insulin drip per protocol
Diabetic nurse practitioner
DVT prophylaxis: Mechanical on the left. rt DVT noted
GI prophylaxis: Protonix
Nutrition-begin tube feeds 01/03/2025
Dr. Tavares updated son and on multidisciplinary rounds 01/03/2025, 01/04/2025, 01/05/2025, and again on 01/06/2025-family now discussing whether withdrawal and comfort care may be the best option-not ready to go in this direction yet
Dr. Tavares reviewed with and son again on multidisciplinary rounds 01/07/2025-if patient extubated they would not want reintubation
Critical care statement: A total of 45 minutes of critical care time was provided for this patient today. This includes management of unstable vital signs, evaluation of the patient at bedside, reviewing the patient�s pertinent medical records
including radiographs, ventilator management, spontaneous breathing trial management, pressor management, microbiology, laboratory evaluations, and��discussion with primary team, consultants, pharmacy, nutrition, physical therapy, case management,
charge nurse, critical care nursing, and respiratory therapy.
Subjective Dataa
Subjective Data
Date of Service:
Date of Service: January 07, 2025
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
Subjective:
Neurologically improved, opens eyes, follows commands, very weak, ammonia down, hematuria persists, off pressors
Review of Systems
General: Other (Per HPI)
Objective Data
Data Reviewed
Vital Signs / I&O / Oxygen:
Vital Signs
Temp Pulse Resp BP Pulse Ox
97.6 F 75 13 145/52 100
01/07/25 04:09 01/07/25 06:00 01/07/25 06:00 01/06/25 17:31 01/07/25 06:00
Intake and Output
01/06/25 01/07/25 01/08/25
06:59 06:59 06:59
Intake Total 2370.0 / 2609.0 2626.6 / 2626.6
Output Total 1539.0 / 1639.0 3595 / 3595
Balance 831.0 / 970.0 -968.4 / -968.4
SaO2 [ASV] 98
SaO2 [A/C] 100
SaO2 100
Nasal Cannula flow liters per 2
minute
Physical Exam
General: Respiratory Distress (n), Comfortable and Other (Upper extremity midline, A-line)
HEENT: Normocephalic, Anicteric and Moist Mucous Membranes
Cardiovascular: Regular Rhythm, Murmur (2/6 systolic murmur) and Rub (n)
Respiratory: Wheeze (n), Crackles (Few basilar), Rhonchi (n), Non-Labored Respirations, Accessory Resp Muscle Use (n), Stridor (n) and ET Tube
GI: Soft, Distended and Non Tender
Neurology: Awake, Alert and Lethargic (Sedated but does open eyes. Does not follow commands)
Skin: Warm, Good Color, Cyanosis (n), Jaundice (n), Rash (n) and Bruising (Few)
Labs/Micro/Reports
Lab Data
01/07/25 03:04
Laboratory Results
01/07/25
03:04
PT 20.9 H
INR 1.74
Microbiology
12/31/24 20:09 Blood/Venous Blood Culture - Final
No Growth - Final Report
12/31/24 19:39 Blood/Venous Blood Culture - Final
No Growth - Final Report
[2025-01-07] MEDS: PULMICORT 0.5 MG INH (07:46)
--- NOTE | 2025-01-07 07:46 | PN.DE.MGMTRT ---
Insulin Management
- -
01/07/2025: Diabetes Management Follow up
74 year old male admitted 12/26 with acute on chronic rectal bleeding diabetes management consult 01/03. PMH: HTN, HLD, ICM EF 35%, CAD s/p bypass surgery, h/o VT, ICD, Severe COPD, FEV1 33%, PAD s/p lower extremity stent/endarterectomy, Liver
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 A1C 5.6%, Cr 3.7, eGFR 16.23. Was taking Metformin but was d/c'd and
he was recently started on insulin TID at discharge from his hospital stay in November 2024.
Hospital course complicated by renal insufficiency, bacteremia, worsening hepatic encephalopathy with an ammonia level of 200, anemia requiring blood transfusion, and Hypotension requiring pressors, transferred to ICU requiring intubation 01/01/2025.
Pt remains critically ill, intubated, unable to interview, family- ans son at bedside.
Remains on steroids and tube feeds 45cc/hr. contributing to hyperglycemia.
01/04 Initiated SC NovoLog 4 units Q 6 hours in addition to glycemic protocol as insulin infusion was up to 7 units per hour.
01/07 Glucose range 128 to 169, on Critical care glycemic protocol continues requiring 2.6 to 4 units of insulin with supplemental 6 units sc.
Will continue glycemic protocol and supplemental SC insulin.
Discussed with nurse. Will cont to follow
Diabetes History
- -
Type of Diabetes: 2 requiring insulin
Pre-Admission Diabetes Regimen
01/06/25 01/07/25
09:51 03:04
Creatinine 3.6 H 3.6 H
Lab Results
Hemoglobin A1c Cancelled 01/03/25 12:11
Insulin Pump Settings
IP Diabetes Regimen
01/06/25 01/06/25 01/06/25
07:55 09:51 09:52
Glucose 120 H
POC Glucose 129 H 131 H
01/06/25 01/06/25 01/06/25
11:55 12:56 14:02
Glucose
POC Glucose 136 H 141 H 136 H
01/06/25 01/06/25 01/06/25
14:51 15:58 17:55
Glucose
POC Glucose 129 H 136 H 137 H
01/06/25 01/06/25 01/07/25
20:07 21:49 00:11
Glucose
POC Glucose 143 H 138 H 152 H
01/07/25 01/07/25 01/07/25
01:50 03:04 04:03
Glucose 143 H
POC Glucose 151 H 169 H
01/07/25
05:47
Glucose
POC Glucose 166 H
Patient Education
[2025-01-07 08:07] LABS: Glucose - Point of Care 128 mg/dl (70-99)
[2025-01-07] MEDS: DUPHALAC/CHRONULAC 20 GRAMS TUBE ×4 (08:28→21:33)
[2025-01-07] MEDS: XIFAXAN 550 MG TUBE ×2 (08:28→19:59)
[2025-01-07] MEDS: PROTONIX IV 40 MG IV ×2 (08:29→19:57)
[2025-01-07] MEDS: NSS (PRESERVATIVE FREE) 10 ML IV ×2 (08:29→19:58)
[2025-01-07] MEDS: SOLU-CORTEF 50 MG IV (08:29)
--- NOTE | 2025-01-07 08:30 | PTCARENOTE ---
pt spontaneously opening eyes, trace mvmt all extremities, Nodding but not always appropriately. Not squeezing fingers on command. #8.0, 24cm in center. AC 18/500/5/30%, overbreathes vent. mcmahon w/ adequate bloody-rust colored UOP, urine dark
red/rust colored. Insulin gtt. Rectal trumpet in place. foam to sacral wounds. weeping continues BUE.
--- NOTE | 2025-01-07 09:50 | W.PN.CD ---
Today's Communication / Plan
-
Continue supportive care
Please call if we can be of assistance
ICD is currently ON
Impression / Plan
-
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
the ER with weakness and recurrent BRBPR. Cardiology consulted for concern for acute on chronic HFrEF.
Cupola Melter Helper: Nelson ([facility])
Patient with multiple complex issues including DVT, Pseudomonas bacteremia (12/30/2024). Worsening renal injury, worsening encephalopathy, respiratory failure. There was discussion regarding IVC filter but not placed due to bacteremia. Patient was
placed on Eliquis and has had issues with GI bleeding and had decreased level of responsiveness requiring intubation. Patient currently in ICU. Patient's received PRBCs and also pressor support.
VDRF/sepsis => improved, off pressors
- Remains intubated, critical.
- Continue supportive care and management as per [facility] Unit/primary Hospitalist team.
Acute on chronic HFrEF/ICM s/p ICD:
- EF on 01/03/2025 15-20% down from 35% on 11/12/2024.
- Overall poor prognosis given acute illness, comorbidities, and multiorgan dysfunction.
- Last Lasix on 01/05/2025
GI bleed, now controlled, rectal and suspected small bowl source
- s/p 9 Units PRBC transfused since 11/12/2024
MARIA DOLORES on CKD with hematuria
Anasarca
h/o VT and VF treated by his MDT BiV ICD, last ICD gen change 2020
- No recent VT/VF by device check 12/28/2024, but recently off Amiodarone
Complete heart block, pacer dependent, biv device in place
CAD - s/p CABG, stable w/o angina,continue ASA
Cirrhosis w/ Hx of hepatic encephalopathy
- GI comment 01/03/2025 noted: 'Decompensated with hepatic encephalopathy, ascites and thrombocytopenia, now with worsening hepatic encephalopathy likely precipitated by bleeding'
Venous, thrombosis-distal
DNR noted; ICD remains active for now.
Subjective: Remains intubated and not responsive
Data:
- Echo 01/03/2025: LVEF 15-20%, mild MR
- TTE 11/12/2024: LVEF 35%, inferior and anteroseptal hypokinesis, normal RV, mild , mild/mod TR, PASP 33 mmHg
Physical Exam
Vital Signs/Labs
Vital Signs
Temp Pulse Resp BP Pulse Ox
97.7 F 79 18 145/52 100
01/07/25 08:54 01/07/25 09:00 01/07/25 09:00 01/06/25 17:31 01/07/25 09:00
01/06/25 01/07/25 01/08/25
06:59 06:59 06:59
Actual Weight 97 kg 96.5 kg
01/07/25 03:04
PT 20.9 Sec (11.4-14.6) H 01/07/25 03:04
INR 1.74 01/07/25 03:04
APTT 32.4 Sec (23.4-35.0) 01/06/25 05:08
Magnesium 3.0 mg/dl (1.6-2.3) H 01/07/25 03:04
Triglycerides 94 mg/dl (10-149) 01/05/25 02:36
12/26/24
11:15
[id number] Pept 3170
Physical Exam
Constitutional: No acute distress
Cardiovascular: Rhythm & rate is regular
Respiratory: Crackles Absent
GI: Soft
Data Reviewed
-
Date of Service: January 07, 2025
--- NOTE | 2025-01-07 09:58 | W.PN.HOSP.TC ---
Today's Communication/Plan
-
cont merrem
follow labs
coagulopathy - unclear how high risk for IVC placement. Will start discussion with family
Assessment / Plan
Assessment / Plan
74yo M with liver cirrhosis, COPD, radiation proctitis, CKD, VT s/p ICD, CAD s/p CABG, HFrEF, PAD, DM, HLD came with rectal bleeding 2/2 most likely radiation proctitis and with MARIA DOLORES, s/p flex sigmoidoscopy with multiple bleeding colonic angioectasia
found on 12/27/24, developed CHF exacerbation and shock with epistaxis 2/2 hepatic coagulopathy. Admitted to ICU on 01/01/25 due to hepatic encephalopathy and intubated, s/p EGD on 01/02/25 with multiple duodenal angioectasias. ID started on MErrem
2/2 Hx of pseudomons bacteremia. Develpoed a right gastrocnemius vein thrombosis. IVC filter considered but not done. Initially remained not following commands after cessation of sedation, but became more awake on 01/07/25
A/P:
#Acute hepatic encephalopathy
Intubated on 01/01/25 for protection of airways
Vent mgmt and off sedation - as per auditor internal
Lactulose, xifaxan cont
neurology followed, planned for MRI brain if mentation will not improve
#Hematuria
not in retention
with Chávez that is draining, if cloged - will need CBUI
most likely 2/2 coagulopathy
#Possible pseudomonas pneumonia with septic shock
ID follows
On merrem
BCx WNL
#COagulopathy 2/2 liver cirrhosisi
s/p vit K
Hem follows
follow INR
#right gastrocnemius vein thrombosis - acute RLE DVT
IVC filter considered
#MARIA DOLORES on CKD stage 3a
follow Cr
#Radiation proctitis with Hx of RT due to prostate CA
#Acute blood loss anemia 2/2 GIB
GI followed
Serial H&H and transfuse as needed
avoid anticoagulation and antiplatelets
PPI
#Liver cirrhosis with transaminitis
worsened 2/2 shock
concern for ischemic hepatitis
Poor prognosis
GI follows
follow LFT
#Hyponatremia
#Hypokalemia
replete and follow
#DM type 2 with nephropathy
on insulin drip while intubated
#Acute on chronic HFrEF exacerbation
#Non-ischemic myocardial injury vs type 2 VT 2/2 shock
cardio followed
S/P Lasix, held with shock
Echo: on 01/03/25 - EF decreased to 15-20%, LAD and RCA hypo-/akinesis
#Stage II pressure injury on sacrum; present on admission
wound care
#FLO
#PAD s/p endarterectomy
#CAD s/p CABG
#COPD, not in exacerbation
#Chronic hypotension 2/2 liver cirrhosis
#VT on ICD
cont home meds, except of ASA
DVT ppx SCDs
DNR/DNI
I have spent at least 59min of critical care time reviewing chart, test rtesults, communication with consultants and providing direct patient care
Anticipated Discharge: > 48 hours
Subjective/Interval History
-
Date of Service: January 07, 2025
Objective Data
-
Labs:
Laboratory Results
01/07/25 01/07/25
03:04 12:00
WBC 11.4 H
Hgb 8.3 L
Hct 24.2 L
Plt Count 42 L
PT 20.9 H
INR 1.74
Sodium 138 Pending
Potassium 2.7 L* Pending
Chloride 109 H Pending
Carbon Dioxide 20 L Pending
BUN 150 H* Pending
Creatinine 3.6 H Pending
Glucose 143 H Pending
Calcium 8.5 Pending
Vital Signs:
Vital Signs
Temp Pulse Resp BP Pulse Ox
97.7 F 79 18 145/52 100
01/07/25 08:54 01/07/25 09:00 01/07/25 09:00 01/06/25 17:31 01/07/25 09:00
I&O
01/06/25 01/07/25 01/08/25
06:59 06:59 06:59
Intake Total 2370.0 / 2609.0 2626.6 / 2705.6 335.6 / 335.6
Output Total 1539.0 / 1639.0 3595 / 3635 150 / 150
Balance 831.0 / 970.0 -968.4 / -929.4 185.6 / 185.6
Review of Systems
-
Unable to obtain full review of systems at this time due to: Acuity and Patient Intubation
Physical Exam
-
General: No Apparent Distress
HEENT: Normocephalic, Atraumatic and Moist Mucous Membranes
Respiratory: Crackles
Cardiac: Regular Rhythm
GI: Soft, Nontender and Distended
Genito-urinary: Bloody Urine and Chávez
Musculoskeletal: No Clubbing and No Cyanosis
Neuro: Awake
Psych: Calm
[2025-01-07 10:05] LABS: Glucose - Point of Care 150 mg/dl (70-99)
[2025-01-07 10:29] LABS: ALT (SGPT) 146 U/L (0-50); AST (SGOT) 126 U/L (17-59); Albumin 2.2 g/dl (3.5-5.0); Alkaline Phosphatase 313 U/L (38-126); Total Protein 4.8 g/dl (6.3-8.2)
[2025-01-07 11:10] VITALS: BP_SYST 146
--- NOTE | 2025-01-07 11:15 | W.PN.NEPH.PH ---
Today's Communication / Plan
-
Continue holding diuretic
Assessment/Plan
-
Assessment
MARIA DOLORES (B/L cr 1.9 )
hyponatremia
Anemia
Hypokalemia
pancytopenia
HFrEF 35% with Moderate TR
GI bleed
cirrhosis
left pleural effusion
mild ascites
Plan
follow BMP
follow hgb transfuse prn
replete lytes prn
rising BUN from steroids and GIB
prognosis is poor
I have discussed with on 01/02 that he is not a candidate for dialysis
Continue to hold diuretics
Discussed with family at the bedside
critical care time 31 minutes
-
-
Date of Service: January 07, 2025
CC / HPI / ROS
-
Chief Complaint:
MARIA DOLORES
History of Present Illness:
critically ill in ICU on pressors
still on vent
Hgb up to 8.2 after transfusion
s/p CTA 12/31 without active bleed
MARIA DOLORES/Cr better at 3.4
BUN rising 152
sodium stable at 137
K low 3.1
Review of Systems:
intubated sedated
Labs
-
Labs:
WBC 11.4 10^3/uL (4.8-10.8) H 01/07/25 03:04
RBC 2.60 10^6/uL (4.70-6.10) L 01/07/25 03:04
Hgb 8.3 g/dL (13.0-18.0) L 01/07/25 03:04
Hct 24.2 % (39.0-52.0) L 01/07/25 03:04
Plt Count 42 10^3/uL (130-400) L 01/07/25 03:04
eGFR 16.77 01/07/25 03:04
Phosphorus 4.8 mg/dl (2.5-4.5) H 01/07/25 03:04
Wlr-X-Ecgwmqfbpsl Pept 3170 pg/ml 12/26/24 11:15
Albumin 2.2 g/dl (3.5-5.0) L 01/07/25 03:04
Physical Exam
-
Vital Signs:
Vital Signs
Temp Pulse Resp BP Pulse Ox
97.7 F 77 12 145/52 100
01/07/25 08:54 01/07/25 11:10 01/07/25 11:10 01/06/25 17:31 01/07/25 11:10
[2025-01-07 11:23] VITALS: BP_SYST 136
[2025-01-07 11:46] VITALS: BP_SYST 146
[2025-01-07 12:03] VITALS: BP_SYST 156
[2025-01-07 12:04] LABS: Glucose - Point of Care 147 mg/dl (70-99)
[2025-01-07 12:27] LABS: B.E. -3.7 mmol/L; HCO3 19.7 mmol/L (21-28); O2 Saturation % 99.0 % (94-98); PCO2 29 mmHg (35-48); PO2 176 mmHg (83-108)
--- NOTE | 2025-01-07 12:31 | PTCARENOTE ---
Pt tolerating SBT without issue. ABG sent. Family at bedside.
[2025-01-07 12:53] LABS: Calcium 8.5 mg/dl (8.4-10.2); Carbon Dioxide 21 mmol/L (22-30); Chloride 111 mmol/L (98-107); Estimated Creatinine Clearance 20 ml/min; Glucose 133 mg/dl (70-99); Potassium 3.3 mmol/L (3.5-5.1); Sodium 141 mmol/L (135-145); eGFR 16.77
--- NOTE | 2025-01-07 13:05 | PTCARENOTE ---
Pt extubated to 2L NC. Family agreeing to no reintubation.
[2025-01-07 13:08] LABS: Blood Urea Nitrogen 160 mg/dl (9-20)
--- NOTE | 2025-01-07 13:29 | W.PN.NEURO.1 ---
Today's Communication / Plan
-
Unable to check MRI of brain due to AICD
Continue goal of reducing ammonia levels
Continue aspirin 81mg daily
Neuro Assessment/Plan
Assessment
Abrupt onset of change in mental status. Differential diagnosis includes hepatic encephalopathy with the patient's ammonia levels extremely elevated and relatively narrow ventricles.
After suggestion of neurosurgical solar consultant, comparison with imaging from 2019 indicated that there was possibly no significant change in the patient's ventricular size from then to now by repeated CAT scan of the head.
Differential diagnosis also includes bilateral embolic events. Currently no evidence of status epilepticus by EEG.
Patient improved on 01/07/2025
Plan
Unable to check MRI of brain due to AICD
Continue goal of reducing ammonia levels
Continue aspirin 81mg daily
Will follow peripherally
Subjective/Objective
Subjective Data
Date of Service: January 07, 2025
Patient unable to provide his own medical history
Objective Data
Vital Signs
Temp Pulse Resp BP Pulse Ox
36.6 C 81 15 145/52 100
01/07/25 12:14 01/07/25 12:30 01/07/25 12:30 01/06/25 17:31 01/07/25 12:30
Lab Results
01/07/25 03:04
01/07/25 12:19
PT 20.9 Sec (11.4-14.6) H 01/07/25 03:04
INR 1.74 01/07/25 03:04
APTT 32.4 Sec (23.4-35.0) 01/06/25 05:08
Sodium 141 mmol/L (135-145) 01/07/25 12:19
Potassium 3.3 mmol/L (3.5-5.1) L 01/07/25 12:19
BUN 160 mg/dl (9-20) H* 01/07/25 12:19
Glucose 133 mg/dl (70-99) H 01/07/25 12:19
Calcium 8.5 mg/dl (8.4-10.2) 01/07/25 12:19
Phosphorus 4.8 mg/dl (2.5-4.5) H 01/07/25 03:04
Yin-P-Wujkajheokz Pept 3170 pg/ml 12/26/24 11:15
Patient Allergies
erythromycin base (Erythromycin Base) Allergy (Verified 12/21/24 10:46)
contraindicated (see comment)
Review of Systems
-
Unable to obtain full review of systems at this time due to: Lethargy
History Source: Patient
All other systems: Reviewed and negative
Physical Exam
-
General: Appears Chronically Ill; Negative Intubated
Eyes: PERRLA
HEENT: Normocephalic and Atraumatic
GI: Non-distended
Extended Neurological Exam
Mood & Affect: Unable to Assess
Attention Span & Concentration: Lethargic and Closes Eyes after Stimulation
Memory: Unable to Assess
Tremor: Hand Tremor Absent
Involuntary Movement: None
Speech: Mute
Cranial Nerve II: Left Eye: Pupillary Reactivity Unremarkable, Pupillary Size Unremarkable and Visual [place] Grossly Intact
Cranial Nerve II: Right Eye: Pupillary Reactivity Unremarkable, Pupillary Size Unremarkable and Visual [place]o Grossly Intact
Cranial Nerves III, IV, : Extraocular Movement: Grossly Intact
Cranial Nerve V: Facial Sensation: Unable to Assess
Cranial Nerve VII: Facial Symmetry: Normal Facial Symmetry
Cranial Nerve VIII: Hearing: Unable to Assess
Cranial Nerves IX, X: Palate Movement: Unable to Assess
Cranial Nerve XI: Shoulder Shrug: Unable to Assess
Cranial Nerve XII: Tongue Protusion: Unable to Assess
Muscle Strength, Overall: Spontaneously Moves (b/l feet at times, bilateral upper extremities)
Pronator Drift: Unable to Assess
Vibration Sensation: Unable to Assess
Coordination: Unable to Assess
Gait & Station: Unable to Assess
Data Reviewed
-
CT Head: Report Reviewed
Labs: Report Reviewed
Reviewed with: Nurse Practioner and Family
Old Records: Summarized
Past History
Past History
ED Past Medical History: Other (Hepatic encephalopathy)
Social History
Personal:
Living: with family
Family History
Family History: Other (Reviewed and noncontributory)
Medications
-
Medications:
Generic Name Dose Route Start Last Admin
Trade Name Freq PRN Reason Stop Dose Admin
Ascorbic Acid 500 mg 12/27/24 08:00 12/31/24 07:48
Ascorbic Acid 500 Mg Tablet PO 01/24/25 07:59 500 mg
On Hold: 12/31/24 18:42 DAILY CRISPIN Administration
Aspirin 81 mg 12/26/24 22:00 12/30/24 21:55
Aspirin 81 Mg (Enteric Coated) Tablet PO 01/23/25 21:59 81 mg
On Hold: 12/31/24 18:41 HS CRISPIN Administration
Atorvastatin Calcium 40 mg 12/28/24 18:00 12/31/24 17:31
Atorvastatin (Lipitor) 40 Mg Tablet PO 01/25/25 17:59 Not Given
On Hold: 12/31/24 18:42 QPM CRISPIN
Benzocaine/Menthol 1 lozenge 12/28/24 12:41 12/28/24 17:28
Benzocaine/Menthol Lozenge PO 01/25/25 12:40 1 lozenge
Q4HPRN PRN Administration
sore throat
Budesonide 0.5 mg 01/01/25 08:00 01/07/25 07:46
Budesonide (Pulmicort Respules) 0.5 Mg/2 Ml INH 0.5 mg
R BID CRISPIN Administration
Protocol
Dextrose 12.5 grams 01/03/25 12:11
Dextrose 50% (0.5 Grams/Ml) 50 Ml Syringe IV 01/31/25 12:10
[id number] PRN
Blood Glucose < 70
Fentanyl Citrate 50 mcg 01/01/25 02:32 01/06/25 04:19
Fentanyl (50 Mcg/Ml) 100 Mcg/2 Ml Ampul IV 01/15/25 02:31 50 mcg
[id number] PRN Administration
see protocol
Protocol
Ferrous Sulfate 325 mg 12/26/24 18:00 12/30/24 18:15
Ferrous Sulfate 325 Mg Tablet PO 01/23/25 17:59 325 mg
On Hold: 12/31/24 18:43 Q48H CRISPIN Administration
Folic Acid 0.5 mg 12/26/24 22:00 12/30/24 21:56
Folic Acid 0.5 Mg (1/2 Of A 1 Mg Tablet) PO 01/23/25 21:59 0.5 mg
On Hold: 12/31/24 18:42 HS CRISPIN Administration
Furosemide 80 mg 12/30/24 10:00 12/31/24 17:26
Furosemide 100 Mg (10 Mg/Ml) 10 Ml Vial IV 01/27/25 09:59 Not Given
On Hold: 12/31/24 18:42 BID AT 0800,1600 CRISPIN
Guaifenesin 600 mg 12/26/24 20:00 12/31/24 07:48
Guaifenesin 600 Mg Extended Release Tablet PO 01/23/25 19:59 600 mg
On Hold: 12/31/24 18:42 BID CRISPIN Administration
Hydrocortisone Sodium Succinate 50 mg 01/05/25 20:00 01/07/25 08:29
Hydrocortisone Sodium Succinate 100 Mg/2 Ml Vial IV 02/02/25 19:59 50 mg
Q12 CRISPIN Administration
Meropenem 500 mg/ Sodium 60 mls @ 15 mls/hr 01/03/25 13:00 01/07/25 12:04
Chloride IV 60 mls
Q12H CRISPIN Administration
Insulin Human Regular 100 units in 100 mls @ 0 mls/hr 01/03/25 12:15 01/07/25 00:37
Novolin R Insulin Infusion IV 100 mls
PER PROTOCOL CRISPIN Administration
Protocol
Per Protocol
Potassium Chloride 40 meq in 100 mls @ 25 mls/hr 01/07/25 13:12
Kcl IV 01/07/25 17:11
NOW STA
Insulin Aspart 6 units 01/05/25 12:00 01/07/25 12:03
Insulin Aspart (Novolog) 100 Units/Ml 3 Ml Flexpen SC 02/02/25 11:59 6 units
Q6 CRISPIN Administration
Lactulose 20 grams 01/03/25 08:00 01/07/25 12:03
Lactulose Solution (20 Grams/30 Ml) 30 Ml Cup TUBE 01/31/25 07:59 20 grams
QID CRISPIN Administration
Mesalamine 1,000 mg 12/31/24 22:00 01/06/25 21:42
Mesalamine 1000 Mg Rectal Suppository RECTAL 01/28/25 21:59 Not Given
HS CRISPIN
Miconazole Nitrate 0 applic 01/03/25 19:33
Miconazole Powder Bottle TOPICAL 01/31/25 19:32
BIDPRN PRN
MASD
Midodrine 10 mg 01/02/25 21:24 01/07/25 12:03
Midodrine 5 Mg Tablet TUBE 01/27/25 12:59 10 mg
TID@0800,1300,1800 CRISPIN Administration
Multivitamins Therapeutic 1 tablet 12/26/24 18:00 12/31/24 17:32
Multivitamin Tablet PO 01/23/25 17:59 Not Given
On Hold: 12/31/24 18:42 QPM CRISPIN
Pantoprazole Sodium 40 mg 01/01/25 08:00 01/07/25 08:29
Pantoprazole Sodium 40 Mg/10 Ml Vial IV 01/29/25 07:59 40 mg
BID CRISPIN Administration
Polyethylene Glycol 17 grams 01/03/25 08:00 01/03/25 06:31
Polyethylene Glycol Powder 17 Grams Packet TUBE 01/31/25 07:59 Not Given
On Hold: 01/03/25 08:00 DAILY CRISPIN
Rifaximin 550 mg 01/02/25 21:24 01/07/25 08:28
Rifaximin 550 Mg Tablet TUBE 01/25/25 08:01 550 mg
BID CRISPIN Administration
Sodium Chloride 0 flush 12/26/24 19:00 01/03/25 17:54
Sodium Chloride 0.9% (Flush) Syringe IV 01/23/25 18:59 1 flush
PER PROTOCOL CRISPIN Administration
Sodium Chloride 1 sprays 12/28/24 04:18 12/28/24 17:26
Sodium Chloride 0.65% Nasal [place] 45 Ml Bottle NASAL 01/25/25 04:17 1 sprays
QIDPRN PRN Administration
nasal dryness
Sodium Chloride 10 ml 01/01/25 08:00 01/07/25 08:29
Sodium Chloride 0.9% (Preservative Free) 10 Ml Vial IV 01/29/25 07:59 10 ml
BID CRISPIN Administration
Trimethobenzamide HCl 200 mg 12/31/24 16:03 12/31/24 17:09
Trimethobenzamide 200 Mg/2 Ml Vial IM 01/28/25 16:02 200 mg
Q6HPRN PRN Administration
nausea
[2025-01-07] MEDS: KCL ELIXIR 20 MEQ TUBE (13:35)
--- NOTE | 2025-01-07 13:58 | W.PN.ID1 ---
Date of Service
Date of Service: January 07, 2025
Today's Communication
Continue meropenem.
Assessment / Plan
Pseudomonas bacteremia
- History of Pseudomonas recovered from lungs
- Pseudomonas again recovered on 01/01 from the lungs.
DVT (gastrocnemius vein)
GI bleed
Anemia
Hepatic encephalopathy
Hyponatremia
Renal insufficiency; worsening
Elevated LFTs; trending up
DM
HLD
HTN
CAD; Hx [place]
PAD
Hx prostate CA
V. tach
CHF with depressed EF
COPD
Recommendations:
Repeat blood cultures show no growth.
Cefepime dc'd 01/03/25 over concerns for encephalopathy
Continue meropenem d8
Leukocytosis improving.
With blood cultures negative, now safer to insert IVC filter if felt needed.
Follow white count and temperature curve.
Continue with supportive measures.
Patient remains critically ill with hypoxemic respiratory failure in ICU.
[place] remains extremely guarded at this time. Patient DNR
����������������������������������������������������������
Chief Complaint
-: Leukocytosis, Clinical Sepsis, Bacteremia and Other (Hepatic encephalopathy)
Subjective / Review of Systems
remains on vent
Vital Signs / Physical Exam
Vital Signs
Vital Signs
Temp Pulse Resp BP Pulse Ox
97.9 F 81 15 145/52 100
01/07/25 12:14 01/07/25 12:30 01/07/25 12:30 01/06/25 17:31 01/07/25 12:30
Physical Exam
Constitutional: Acutely Ill
Head: Other (ET tube in place. Nasal Dobbhoff in place.)
Eyes: Other (Scleral icterus noted)
Cardiovascular: Regular Rate and S1/S2
Pulmonary: Coarse
Gastrointestinal: Soft, Non Tender, Distended, Decreased Bowel Sounds, No Rebound, No Guarding and Other (Rectal tube in place with melena)
Genito-Urinary: Chávez and Hematuria
Extremities: Edema
Skin: Jaundice
Neurological: Other (Sedated. Some response to voice and touch.)
Objective Data
Lab Data
Lab Results
01/07/25 03:04
01/07/25 12:19
PT 20.9 Sec (11.4-14.6) H 01/07/25 03:04
INR 1.74 01/07/25 03:04
APTT 32.4 Sec (23.4-35.0) 01/06/25 05:08
Estimated Creat Clear 20 ml/min 01/07/25 12:19
Total Bilirubin 3.0 mg/dl (0.2-1.3) H 01/07/25 03:04
AST 126 U/L (17-59) H 01/07/25 03:04
ALT 146 U/L (0-50) H 01/07/25 03:04
Alkaline Phosphatase 313 U/L (38-126) H 01/07/25 03:04
Most recent labs reviewed.
Micro Results:
12/31/24 20:09 Blood Culture - Final
Blood/Venous No Growth - Final Report
12/31/24 19:39 Blood Culture - Final
Blood/Venous No Growth - Final Report
01/01/25 11:36 Respiratory Culture - Final
Tracheal Aspirate Pseudomonas aeruginosa
Gram Stain - Final
12/28/24 12:27 Blood Culture - Final
Blood/Venous No Growth - Final Report
12/30/24 07:36 Blood Culture - Final
Blood/Venous Pseudomonas aeruginosa
Gram Stain - Final
Imaging:
12/30/2024 Duplex ultrasound lower extremity: there is an occlusive thrombus within the right gastrocnemius vein in the calf. There is spontaneous phasic flow with compressibility in the right common femoral, femoral and popliteal veins.
[2025-01-07 14:13] LABS: Glucose - Point of Care 156 mg/dl (70-99)
[2025-01-07 16:21] LABS: Glucose - Point of Care 173 mg/dl (70-99)
--- NOTE | 2025-01-07 16:34 | PTCARENOTE ---
BP elevated. At bedside, pt nodding to 'do you have pain?' Nodding when I ask if his pain is at buttocks, but also nodding to Orientation questions inappropriately. Notified bleach analyst. Pain meds ordered. Tolerating extubation, RR and SpO2 WNL.
However rattling at back of throat. Pt refusing to open mouth to attempt oropharyngeal suctioning.
--- NOTE | 2025-01-07 16:58 | CM ---
SBT, patient extubated. Family does not want reintubation. IV/Lasix/Solu-Cortef/Meropenem. Poor prognosis. GOC discussed. Discharge POC: TBD.
[2025-01-07] MEDS: NOVOLOG FLEXPEN 10 UNITS SC ×2 (18:00→23:51)
[2025-01-07 18:16] LABS: Glucose - Point of Care 161 mg/dl (70-99)
[2025-01-07] MEDS: SOLU-CORTEF 25 MG IV (19:58)
[2025-01-07 20:16] LABS: Glucose - Point of Care 139 mg/dl (70-99)
--- NOTE | 2025-01-07 21:07 | PTCARENOTE ---
received pt from charleen, assessments completed at bedside. patient off ventilator, able to open eyes and track. patient able to follow some commands, did attempt a smile, did wiggle fingers on Left hand. patient does nod 'yes' to no matter what
questions you answered, even if answers would be 'no' for example: is your names nallely? yes.... is your name milagro? yes..
mcmahon patent for rust/jordin urine, rectal trumpet patent for bloody liquid stool. Insulin decreased to 3.0 gtt/hr. will monitor for consistent drop in insulin rate, per MD if insulin gtt stays below 2 for 2 or more checks, will stop insulin gtt
and transition to q6 hr.
family at bedside, all questions answered.
[2025-01-07] MEDS: ROWASA, CANASA SUPPOSITORY RECTAL (21:34)
[2025-01-07 22:10] LABS: Glucose - Point of Care 136 mg/dl (70-99)
[2025-01-08 00:10] LABS: Glucose - Point of Care 140 mg/dl (70-99)
[2025-01-08 01:12] LABS: Calcium 8.4 mg/dl (8.4-10.2); Carbon Dioxide 21 mmol/L (22-30); Chloride 113 mmol/L (98-107); Estimated Creatinine Clearance 19 ml/min; Glucose 109 mg/dl (70-99); Magnesium 3.2 mg/dl (1.6-2.3); Potassium 3.8 mmol/L (3.5-5.1); Sodium 144 mmol/L (135-145); eGFR 15.72
[2025-01-08 01:28] LABS: Blood Urea Nitrogen 162 mg/dl (9-20)
[2025-01-08] MEDS: MERREM 60 MG IV (02:08)
[2025-01-08 02:11] LABS: Glucose - Point of Care 105 mg/dl (70-99)
--- NOTE | 2025-01-08 02:46 | PTCARENOTE ---
patient dropping O2 saturation, lungs coarse throughout, CONCRETE WORKER at bedside as we try to deep suction, unable to initiate productive cough. DIGITAL MARKETING PROJECT MANAGER violette updated, waiting one new orders..
new orders ABG/Xray
renal said to hold lasix, will update renal with xray and abg results.
[2025-01-08 04:07] VITALS: BMI 30.1
[2025-01-08] MEDS: TRANSDERM-SCOP 1 PATCH TRANSDERM (04:08)
[2025-01-08 04:17] LABS: Glucose - Point of Care 119 mg/dl (70-99)
[2025-01-08 04:28] LABS: Hematocrit 30.0 % (39.0-52.0); Hemoglobin 9.4 g/dL (13.0-18.0); Mean Corp Hgb Conc. 31.3 g/dL (33.0-37.0); Mean Corpuscular Volume 99.3 fL (80.0-94.0); Nucleated Red Blood Cells % 0.1 % (-); Platelet Count 85 10^3/uL (130-400); Red Cell Dist. Width 20.6 % (11.5-14.5)
[2025-01-08 04:34] LABS: INR 1.54; PT 18.7 Sec (11.4-14.6)
[2025-01-08 04:38] LABS: Triglycerides 98 mg/dl (10-149)
--- NOTE | 2025-01-08 05:31 | PTCARENOTE ---
patient continues on NRB, vs stable, urine output 10-15 ml/hr, labs sent, no new orders at this time.
[2025-01-08] MEDS: NOVOLOG FLEXPEN 10 UNITS SC (05:58)
[2025-01-08 06:03] LABS: B.E. -8.3 mmol/L; HCO3 20.8 mmol/L (21-28); O2 Saturation % 98.7 % (94-98); PCO2 61 mmHg (35-48); PO2 103 mmHg (83-108)
[2025-01-08] MEDS: LEVOPHED 250 IV (06:10)
[2025-01-08 06:16] LABS: Glucose - Point of Care 133 mg/dl (70-99)
[2025-01-08 07:30] VITALS: BP 96/52
--- NOTE | 2025-01-08 07:40 | W.PN.HOSP.TC ---
Today's Communication/Plan
-
obviously failed extubation - hospice advised. COnfirmed DNI with family bedside
Cont same Abx as no signs of new ifection, follow WBC count, sent stool for c.diff, send UA, send Bcx
Assessment / Plan
Assessment / Plan
74yo M with liver cirrhosis, COPD, radiation proctitis, CKD, VT s/p ICD, CAD s/p CABG, HFrEF, PAD, DM, HLD came with rectal bleeding 2/2 most likely radiation proctitis and with MARIA DOLORES, s/p flex sigmoidoscopy with multiple bleeding colonic angioectasia
found on 12/27/24, developed CHF exacerbation and shock with epistaxis 2/2 hepatic coagulopathy. Admitted to ICU on 01/01/25 due to hepatic encephalopathy and intubated, s/p EGD on 01/02/25 with multiple duodenal angioectasias. ID started on Merrem
2/2 Hx of pseudomonas bacteremia. Developed a right gastrocnemius vein thrombosis. IVC filter considered but not done. Initially remained not following commands after cessation of sedation, but became more awake on 01/07/25, so extubation was done
with family declining re-intubation if needed. Patient developed worsening respiratory acidosis, apparently not tolerating extubation
A/P:
#Acute hypoxic hypercapnic respiratory failure
DNI as per family
worsening respiratory acidosis
Failed extubation
poor prognosis - discussed with family bedside on 01/08/25 - recommended hospice: explained that it will incorporate cessation of active medical mgmt except of medications for dyspnea, anxiety and avoiding diagnostic procedures - invasive and
noninvasive
#Acute hepatic encephalopathy
#Acute toxic metabolic encephalopathy 2/2 hypercarbia
#Diarrhea 2/2 lactulose
FMS
Intubated on 01/01/25 for protection of airways
Vent mgmt and off sedation - as per aquatic instructor
Lactulose, xifaxan cont
neurology followed, planned for MRI brain if mentation will not improve
#Hematuria
not in retention
with Chávez that is draining, if cloged - will need CBUI
most likely 2/2 coagulopathy
#Possible pseudomonas pneumonia with septic shock
Worsening leukocytosis post extubation
ID follows
On merrem
BCx WNL
was attempting to grayson off pressors
#COagulopathy 2/2 liver cirrhosisi
s/p vit K
Hem follows
follow INR
#right gastrocnemius vein thrombosis - acute RLE DVT
IVC filter considered
#MARIA DOLORES on CKD stage 3a
follow Cr
#Radiation proctitis with Hx of RT due to prostate CA
#Acute blood loss anemia 2/2 GIB
GI followed
Serial H&H and transfuse as needed
avoid anticoagulation and antiplatelets
PPI
#Liver cirrhosis with transaminitis
worsened 2/2 shock
concern for ischemic hepatitis
Poor prognosis
GI follows
follow LFT
#Hyponatremia
#Hypokalemia
replete and follow
#DM type 2 with nephropathy
on insulin drip while intubated
#Acute on chronic HFrEF exacerbation
#Non-ischemic myocardial injury vs type 2 CT 2/2 shock
cardio followed
S/P Lasix, held with shock
Echo: on 01/03/25 - EF decreased to 15-20%, LAD and RCA hypo-/akinesis
#Stage II pressure injury on sacrum; present on admission
wound care
#FLO
#PAD s/p endarterectomy
#CAD s/p CABG
#COPD, not in exacerbation
#Chronic hypotension 2/2 liver cirrhosis
#VT on ICD
cont home meds, except of ASA
DVT ppx SCDs
DNR/DNI
I have spent at least 60min of critical care time reviewing chart, test rtesults, communication with consultants and providing direct patient care
Anticipated Discharge: 24 - 48 hours
Subjective/Interval History
-
Date of Service: January 08, 2025
Objective Data
-
Labs:
Laboratory Results
01/08/25 01/08/25 01/08/25
00:41 03:43 05:56
WBC 22.3 H
Hgb 9.4 L
Hct 30.0 L
Plt Count 85 L D
PT 18.7 H
INR 1.54
HCO3 20.8 L
Sodium 144
Potassium 3.8
Chloride 113 H
Carbon Dioxide 21 L
BUN 162 H*
Creatinine 3.8 H
Glucose 109 H
Calcium 8.4
Total Bilirubin
AST
ALT
Alkaline Phosphatase
01/08/25
06:00
WBC
Hgb
Hct
Plt Count
PT
INR
HCO3
Sodium Cancelled
Potassium Cancelled
Chloride Cancelled
Carbon Dioxide Cancelled
BUN Cancelled
Creatinine Cancelled
Glucose Cancelled
Calcium Cancelled
Total Bilirubin Cancelled
AST Cancelled
ALT Cancelled
Alkaline Phosphatase Cancelled
Vital Signs:
Vital Signs
Temp Pulse Resp BP Pulse Ox
97.5 F 68 17 96/52 97
01/08/25 07:17 01/08/25 07:30 01/08/25 07:30 01/08/25 07:30 01/08/25 07:30
I&O
01/07/25 01/08/25 01/09/25
06:59 06:59 06:59
Intake Total 2626.6 / 2705.6 1259.5 / 1273.5 14.0 / 14.0
Output Total 3595 / 3635 532 / 532
Balance -968.4 / -929.4 727.5 / 741.5 14.0 / 14.0
Review of Systems
-
Unable to obtain full review of systems at this time due to: Acuity
Physical Exam
-
General: Respiratory Distress
HEENT: Normocephalic
Respiratory: Rales and Crackles
Cardiac: Regular Rhythm
GI: Soft and Distended
Genito-urinary: Bloody Urine and Chávez
Musculoskeletal: No Clubbing, No Cyanosis, Edema, Right Lower Extrem and Edema, Left Lower Extrem
Neuro: Negative Awake
--- NOTE | 2025-01-08 07:43 | W.PN.INTV ---
Today's Communication / Plan
Recommendations
Tolerated extubation and now deteriorated likely due to either aspiration or mucous plugging with suspected worsening acidosis now back on pressors
See update note-Dr. Tavares with family meeting-no reintubation, comfort, withdrawal
Assessment
-
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
kidney disease baseline creatinine 1.9, history of ischemic cardiomyopathy with bypass surgery EF 35%, admitted 12/26/2024 for rectal bleeding. Hospital course complicated by renal insufficiency, bacteremia, worsening hepatic encephalopathy,
transferred to ICU requiring intubation 01/01/2025
VDRF, intubated for airway protection, mental status changes 01/01/2025
Hepatic encephalopathy, ammonia level 200
Acute lower GI bleed, secondary to radiation proctitis
Requiring transfusion
Left upper extremity swelling with superficial thrombophlebitis
Right lower extremity DVT
Eliquis therapy 12/03/2024, now discontinued
Liver cirrhosis
Ascites, hepatic encephalopathy, thrombocytopenia
Chronic transaminitis
Acute renal insufficiency, baseline creatinine 1.9, worsening
Hypotension requiring pressors
Suspect multifactorial (bleeding, renal failure, liver failure, cardiomyopathy)
Conditions present prior to admission:
Hypertension/hyperlipidemia
Ischemic cardiomyopathy, EF 35%
History of VT, ICD
Amiodarone therapy in the past
Coronary disease bypass surgery
Insulin-dependent diabetes
Severe COPD, FEV1 33%
Recurrent left pleural effusion with left lower lobe consolidation/atelectasis
History of prostate cancer with radiation therapy
Peripheral arterial disease status post lower extremity stent/endarterectomy
Plan/recommendations
Tolerated extubation, ever, likely difficulties mobilizing secretions and now chest x-ray with increased diffuse opacifications on the left-? Aspiration, mucous plugging
Increased FiO2 requirements
Suction as needed
Nebulizers if needed-currently not bronchospastic-currently on DuoNebs and Pulmicort
Aspiration precautions
Severe COPD at baseline-FEV1 35% predicted
Chest x-ray 01/08/2025 reviewed and summarized above
Mental status improved yesterday, however, deteriorated with probable hypercapnia and acidosis
Mental status has improved-ammonia level down-mental status declined overnight
Neurology evaluation 01/04/20257879-[id number]-yftc have been following since
CT head 01/04/2025-possible increased intracranial pressure
After lengthy discussion the family would not want transfer/neurosurgical evaluation
Brain MRI unable to be performed due to ICD
Routine EEG 01/06/2025-without seizure activity
Follow hemoglobin--continues to follow
Transfuse as needed
PPI
Gastroenterology following-reviewed case with them
Hematology evaluation 01/05/2025-hemolysis versus low-grade DIC-extremely poor prognosis
Replace electrolytes including calcium
Norepinephrine and vasopressin weaned off
Stress dose steroids-hydrocortisone continue-begin to decrease to 50 mg IV every 12 hours-further wean in the next 24 hours
Lactulose continues
Follow ammonia level-improved without any change in his mental status
Recent paracentesis without evidence of SBP
Chronic left pleuroparenchymal process is noted
Required outpatient thoracenteses
Tracheal aspirate gram-negative bacilli
Blood culture Pseudomonas
Small left pleural effusion
Will consider left thoracentesis-depending on clinical course
Monitor renal yzpaztqf-rlqvcttet-golzptt kidney disease stage III with baseline serum creatinine 1.9, now with GI bleed and received dye
Renal function appears to have stabilized
Nephrology following-not a continuous renal replacement therapy candidate
Bicarbonate as needed
Monitor cardiac status closely
Patient with known ischemic cardiomyopathy-EF 35% and now repeat echocardiogram 15%
Aspirin on hold due to rectal bleeding
ICD in place-if patient family decides comfort measures then ICD may need to be turned off
Cardiology following-reviewed with them-Dr. Mayorga on 01/05/2025
Pressors weaned including norepinephrine and vasopressin
History of Rt lower extremity DVT and left upper extremity thrombophlebitis
IVC filter considered-hold off for now as patient and family may be moving towards comfort measures
Remains off anticoagulation given bleeding-INR elevated-suspect a component of DIC and auto anticoagulated
Cultures reviewed
Blood culture 03/06-Pseudomonas
Sputum culture-Pseudomonas
Infectious disease following
Antibiotics per infectious disease-correspondence reviewed
Monitor blood sugar
Insulin drip per protocol
Diabetic nurse practitioner
DVT prophylaxis: Mechanical on the left. rt DVT noted
GI prophylaxis: Protonix
Nutrition-begin tube feeds 01/03/2025
Dr. Tavares updated son and on multidisciplinary rounds 01/03/2025, 01/04/2025, 01/05/2025, and again on 01/06/2025-family now discussing whether withdrawal and comfort care may be the best option-not ready to go in this direction yet
Dr. Tavares reviewed with and son again on multidisciplinary rounds 01/07/2025-if patient extubated they would not want reintubation
Dr. Tavares reviewed with and son on 01/08/2025-see update note
Critical care statement: A total of 45 minutes of critical care time was provided for this patient today. This includes management of unstable vital signs, evaluation of the patient at bedside, reviewing the patient�s pertinent medical records
including radiographs, ventilator management, spontaneous breathing trial management, pressor management, microbiology, laboratory evaluations, and��discussion with primary team, consultants, pharmacy, nutrition, physical therapy, case management,
charge nurse, critical care nursing, and respiratory therapy.
Subjective Dataa
Subjective Data
Date of Service:
Date of Service: January 08, 2025
Chief Complaint: Audio Technician Follow Up, Pulmonary Follow Up and Vent Management Follow Up
Subjective:
Tolerated extubation for about 8 hours, progressive shortness of breath, probable mucous plug with hypoxemia, increased acidosis now back on pressors, Not responsive,
Review of Systems
General: Other (Per HPI t)
Objective Data
Data Reviewed
Vital Signs / I&O / Oxygen:
Vital Signs
Temp Pulse Resp BP Pulse Ox
97.5 F 68 17 96/52 97
01/08/25 07:17 01/08/25 07:30 01/08/25 07:30 01/08/25 07:30 01/08/25 07:30
Intake and Output
01/07/25 01/08/25 01/09/25
06:59 06:59 06:59
Intake Total 2626.6 / 2705.6 1259.5 / 1273.5 14.0 / 14.0
Output Total 3595 / 3635 532 / 532
Balance -968.4 / -929.4 727.5 / 741.5 14.0 / 14.0
SaO2 [CPAP/PSV] 100
SaO2 [ASV] 98
SaO2 [A/C] 100
SaO2 97
Nasal Cannula flow liters per 2
minute
Physical Exam
General: Respiratory Distress (n), Comfortable and Other (Upper extremity midline, A-line)
HEENT: Normocephalic, Anicteric and Moist Mucous Membranes
Cardiovascular: Regular Rhythm, Murmur (2/6 systolic murmur) and Rub (n)
Respiratory: Wheeze (n), Crackles (Few basilar), Rhonchi (n), Non-Labored Respirations, Accessory Resp Muscle Use (n) and Stridor (n)
GI: Soft, Distended and Non Tender
Neurology: Lethargic (Sedated but does open eyes. Does not follow commands)
Skin: Warm, Good Color, Cyanosis (n), Jaundice (n), Rash (n) and Bruising (Few)
Labs/Micro/Reports
Lab Data
01/08/25 03:43
01/08/25 06:00
Laboratory Results
01/07/25 01/08/25 01/08/25
12:19 03:43 05:56
PT 18.7 H
INR 1.54
pH 7.44 7.14 L*
pCO2 29 L 61 H
pO2 176 H 103
HCO3 19.7 L 20.8 L
O2 Delivery Level
Microbiology
12/31/24 20:09 Blood/Venous Blood Culture - Final
No Growth - Final Report
12/31/24 19:39 Blood/Venous Blood Culture - Final
No Growth - Final Report
[2025-01-08 08:14] LABS: Glucose - Point of Care 136 mg/dl (70-99)
--- NOTE | 2025-01-08 08:55 | W.ICD.INACTI ---
ICD Device Inactivated
-
The patient's ICD device has been inactivated. The BIV ICD was interrogated and the tachy therapies are suspended. The chung therapy is functional and patient is BiV paced.
--- NOTE | 2025-01-08 08:57 | W.PN.UPDATE ---
Update Note
Progress Note Update
Patient is clinically not improving and family has decided for the comfort measures. I was asked to turn off the ICD. I discussed and confirmed with the family at bedside with his and son and nursing staff. All are in agreement to turn off the
ICD.
Will turn off ICD.
[2025-01-08] MEDS: DUPHALAC/CHRONULAC TUBE (09:02)
[2025-01-08] MEDS: NSS (PRESERVATIVE FREE) IV (09:09)
[2025-01-08] MEDS: SOLU-CORTEF IV (09:10)
[2025-01-08] MEDS: PROTONIX IV IV (09:10)
[2025-01-08] MEDS: XIFAXAN TUBE (09:10)
[2025-01-08 09:19] LABS: ALT (SGPT) 171 U/L (0-50); AST (SGOT) 129 U/L (17-59); Albumin 2.5 g/dl (3.5-5.0); Alkaline Phosphatase 387 U/L (38-126); Total Protein 5.5 g/dl (6.3-8.2)
--- NOTE | 2025-01-08 10:32 | CM ---
Consult for hospice. Referral forwarded.
--- NOTE | 2025-01-08 10:56 | W.PN.UPDATE ---
Update Note
Progress Note Update
Dr. Tavares had family meeting with and son
Deterioration and multiorgan failure reviewed with them-they do not want reintubation
They would like discontinuation of supportive medications, comfort and allow him to pass in peace
Comfort care initiated
Discontinue medications other than comfort medications
Reviewed with critical care nursing and primary team
--- NOTE | 2025-01-08 11:19 | HOSPNOTE ---
Addendum entered by Rosemary Vanessa RN 01/08/25 11:20:
Admissions notified and bed requested on [address]
Original Note:
Patient will be admitted to inpatient hospice today. Message left for spouse who may be bedside already. Hospice will be there between 12-1 pm to initiate inpatient hospice services. Attending and Primary Nurse updated.
[2025-01-08] MEDS: NOVOLOG FLEXPEN SC (11:46)
[2025-01-08 11:51] VITALS: BP 65/34
--- NOTE | 2025-01-08 11:57 | W.PN.NEPH.PH ---
Today's Communication / Plan
-
Sign off
Assessment/Plan
-
Assessment
MARIA DOLORES (B/L cr 1.9 )
hyponatremia
Anemia
Hypokalemia
pancytopenia
HFrEF 35% with Moderate TR
GI bleed
cirrhosis
left pleural effusion
mild ascites
Plan
Patient now on comfort care family is at the bedside discussed with them that this is more than reasonable as patient has multi organ failure and no further medical management available for him unfortunately.
Family knowledges and appreciate our discussion
I will sign off
-
-
Date of Service: January 08, 2025
CC / HPI / ROS
-
Chief Complaint:
MARIA DOLORES
History of Present Illness:
critically ill in ICU on pressors
still on vent
Hgb up to 8.2 after transfusion
s/p CTA 12/31 without active bleed
MARIA DOLORES/Cr better at 3.4
BUN rising 152
sodium stable at 137
K low 3.1
Review of Systems:
Extubated on comfort care
Labs
-
Labs:
WBC 22.3 10^3/uL (4.8-10.8) H 01/08/25 03:43
RBC 3.02 10^6/uL (4.70-6.10) L 01/08/25 03:43
Hgb 9.4 g/dL (13.0-18.0) L 01/08/25 03:43
Hct 30.0 % (39.0-52.0) L 01/08/25 03:43
Plt Count 85 10^3/uL (130-400) L D 01/08/25 03:43
Sodium Cancelled 01/08/25 06:00
Potassium Cancelled 01/08/25 06:00
Chloride Cancelled 01/08/25 06:00
Carbon Dioxide Cancelled 01/08/25 06:00
BUN Cancelled 01/08/25 06:00
Creatinine Cancelled 01/08/25 06:00
eGFR Cancelled 01/08/25 06:00
Glucose Cancelled 01/08/25 06:00
Calcium Cancelled 01/08/25 06:00
Phosphorus 4.8 mg/dl (2.5-4.5) H 01/07/25 03:04
Ssg-O-Agksdqakbey Pept 3170 pg/ml 12/26/24 11:15
Albumin 2.5 g/dl (3.5-5.0) L 01/08/25 03:43
Physical Exam
-
Vital Signs:
Vital Signs
Temp Pulse Resp BP Pulse Ox
97.5 F 60 14 65/34 97
01/08/25 07:17 01/08/25 11:51 01/08/25 11:51 01/08/25 11:51 01/08/25 11:51
--- NOTE | 2025-01-08 12:35 | HOSPNOTE ---
Arrived to sign consents with family, due to the fact that we could move him to another floor at the end of life, he is very close, they refused to sign and asked that I return in several hours to see if he is still alive. Spoke to Dr Cesar and
nursing supervisor in charge. Agreed that the patient will not be transferred to the med surg floor. Family signed consents with the assurance that we would not move him hours from . Transfer to [address] [place] [address] cancelled.
--- NOTE | 2025-01-08 12:38 | W.DCSUMMARY ---
Discharge Summary
Discharge Data
Date of Admission: 12/26/24
Date of Discharge: 01/08/25
-
Pending Results: No
Hospital Course
74yo M with liver cirrhosis, COPD, radiation proctitis, CKD, VT s/p ICD, CAD s/p CABG, HFrEF, PAD, DM, HLD came with rectal bleeding 2/2 most likely radiation proctitis and with MARIA DOLORES, s/p flex sigmoidoscopy with multiple bleeding colonic angioectasia
found on 12/27/24, developed CHF exacerbation and shock with epistaxis 2/2 hepatic coagulopathy. Admitted to ICU on 01/01/25 due to hepatic encephalopathy and intubated, s/p EGD on 01/02/25 with multiple duodenal angioectasias. ID started on Merrem
2/2 Hx of pseudomonas bacteremia. Developed a right gastrocnemius vein thrombosis. IVC filter considered but not done. Initially remained not following commands after cessation of sedation, but became more awake on 01/07/25, so extubation was done
with family declining re-intubation if needed. Patient developed worsening respiratory acidosis, apparently not tolerating extubation, so family signed for hospice: explained that it will incorporate cessation of active medical mgmt except of
medications for dyspnea, anxiety and avoiding diagnostic procedures - invasive and noninvasive, family is agreeable with approach
I have spent at least 60min of critical care time reviewing chart, test rtesults, communication with consultants and providing direct patient care
Patient was managed for:
#Acute hypoxic hypercapnic respiratory failure
#Acute hepatic encephalopathy
#Acute toxic metabolic encephalopathy 2/2 hypercarbia
#Diarrhea 2/2 lactulose
#Hematuria
#Possible pseudomonas pneumonia with septic shock
#COagulopathy 2/2 liver cirrhosis
#right gastrocnemius vein thrombosis - acute RLE DVT
#MARIA DOLORES on CKD stage 3a
#Radiation proctitis with Hx of RT due to prostate CA
#Acute blood loss anemia 2/2 GIB
#Liver cirrhosis with transaminitis
#Hyponatremia
#Hypokalemia
#DM type 2 with nephropathy
#Acute on chronic HFrEF exacerbation
#Non-ischemic myocardial injury vs type 2 [place] 2/2 shock
#Stage II pressure injury on sacrum; present on admission
#FLO
#PAD s/p endarterectomy
#CAD s/p CABG
#COPD, not in exacerbation
#Chronic hypotension 2/2 liver cirrhosis
#VT on ICD
Discharge Plan
-
Patient Disposition: Hospice - Inpatient [facility]
Discharge Orders:
Discharge Patient (As Directed); Ordered 01/08/25
Ordered By: Villa Cesar
Discharge Date and Time
Print Language: IRAQI
--- NOTE | 2025-01-08 15:06 | CM ---
Patient has been discharged from ICU to inpatient hospice.
== END 2025-01-08 13:38 | disposition hospice, inpatient (51) | DRG 377 ==
LOC: ICU 15:10
PROVIDERS: Hospitalist; Internal Medicine; Internal Medicine Cardiovascular Disease; Internal Medicine Critical Care Medicine; Internal Medicine Gastroenterology; Nurse Practitioner Adult Health; Nurse Practitioner Family; Nurse Practitioner Primary Care; Physician Assistant; Radiology Diagnostic Radiology; Student in an Organized Health Care Education/Training Program; ADMITTING PHYSICIAN Internal Medicine; ATTENDING PHYSICIAN Internal Medicine; CONSULT PHYSICIAN Internal Medicine Cardiovascular Disease; CONSULT PHYSICIAN Internal Medicine Critical Care Medicine; CONSULT PHYSICIAN Internal Medicine Hematology & Oncology; CONSULT PHYSICIAN Internal Medicine Infectious Disease; CONSULT PHYSICIAN Psychiatry & Neurology Neurology; CONSULT PHYSICIAN Specialist; EMERGENCY PHYSICIAN Emergency Medicine; OTHER PHYSICIAN Specialist
PROC: 30233N1 Transfusion of Nonautologous Red Blood Cells into Peripheral Vein, Percutaneous Approach (ICD-10-PCS; 2024-12-26)
PROC: 0D5N8ZZ Destruction of Sigmoid Colon, Via Natural or Artificial Opening Endoscopic (ICD-10-PCS; 2024-12-27)
PROC: 30233K1 Transfusion of Nonautologous Frozen Plasma into Peripheral Vein, Percutaneous Approach (ICD-10-PCS; 2024-12-31)
PROC: 5A1955Z Respiratory Ventilation, Greater than 96 Consecutive Hours (ICD-10-PCS; 2025-01-01)
PROC: 0BH17EZ Insertion of Endotracheal Airway into Trachea, Via Natural or Artificial Opening (ICD-10-PCS; 2025-01-01)
PROC: 0DH67UZ Insertion of Feeding Device into Stomach, Via Natural or Artificial Opening (ICD-10-PCS; 2025-01-01)
PROC: 02HV33Z Insertion of Infusion Device into Superior Vena Cava, Percutaneous Approach (ICD-10-PCS; 2025-01-02)
PROC: 0DJ08ZZ Inspection of Upper Intestinal Tract, Via Natural or Artificial Opening Endoscopic (ICD-10-PCS; 2025-01-02)
PROC: 0D5P8ZZ Destruction of Rectum, Via Natural or Artificial Opening Endoscopic (ICD-10-PCS; 2025-01-02)
PROC: 30243K1 Transfusion of Nonautologous Frozen Plasma into Central Vein, Percutaneous Approach (ICD-10-PCS; 2025-01-04)
PROC: 30243N1 Transfusion of Nonautologous Red Blood Cells into Central Vein, Percutaneous Approach (ICD-10-PCS; 2025-01-04)
PROC: 4B02XTZ Measurement of Cardiac Defibrillator, External Approach (ICD-10-PCS; 2025-01-08)
DX: K55.21 Angiodysplasia of colon with hemorrhage (principal); A41.9 Sepsis, unspecified organism; I50.23 Acute on chronic systolic (congestive) heart failure; R57.8 Other shock; R65.21 Severe sepsis with septic shock; J96.01 Acute respiratory failure with hypoxia; J96.02 Acute respiratory failure with hypercapnia; G92.8 Other toxic encephalopathy; J15.1 Pneumonia due to Pseudomonas; N17.9 Acute kidney failure, unspecified; E87.1 Hypo-osmolality and hyponatremia; D62 Acute posthemorrhagic anemia; D61.818 Other pancytopenia; I13.0 Hypertensive heart and chronic kidney disease with heart failure and stage 1 through stage 4 chronic kidney disease, or unspecified chronic kidney disease; R18.8 Other ascites; K76.6 Portal hypertension; I82.612 Acute embolism and thrombosis of superficial veins of left upper extremity; E46 Unspecified protein-calorie malnutrition; Z99.11 Dependence on respirator [ventilator] status; J98.11 Atelectasis; I5A Non-ischemic myocardial injury (non-traumatic); G93.1 Anoxic brain damage, not elsewhere classified; E87.29 Other acidosis; K62.6 Ulcer of anus and rectum; D68.4 Acquired coagulation factor deficiency; K62.7 Radiation proctitis; K31.819 Angiodysplasia of stomach and duodenum without bleeding; Y84.2 Radiological procedure and radiotherapy as the cause of abnormal reaction of the patient, or of later complication, without mention of misadventure at the time of the procedure; E11.22 Type 2 diabetes mellitus with diabetic chronic kidney disease; I82.461 Acute embolism and thrombosis of right calf muscular vein; I25.10 Atherosclerotic heart disease of native coronary artery without angina pectoris; E11.51 Type 2 diabetes mellitus with diabetic peripheral angiopathy without gangrene; E78.5 Hyperlipidemia, unspecified; K74.60 Unspecified cirrhosis of liver; I95.89 Other hypotension; I25.5 Ischemic cardiomyopathy; E86.1 Hypovolemia; J44.9 Chronic obstructive pulmonary disease, unspecified; E88.09 Other disorders of plasma-protein metabolism, not elsewhere classified; D63.8 Anemia in other chronic diseases classified elsewhere; E87.6 Hypokalemia; L89.152 Pressure ulcer of sacral region, stage 2; B96.5 Pseudomonas (aeruginosa) (mallei) (pseudomallei) as the cause of diseases classified elsewhere; K76.82 Hepatic encephalopathy; N18.32 Chronic kidney disease, stage 3b; K72.90 Hepatic failure, unspecified without coma; R31.9 Hematuria, unspecified; I27.20 Pulmonary hypertension, unspecified; F41.9 Anxiety disorder, unspecified; Z66 Do not resuscitate; Z95.1 Presence of aortocoronary bypass graft; Z79.82 Long term (current) use of aspirin; Z87.01 Personal history of pneumonia (recurrent); Z87.891 Personal history of nicotine dependence; Z95.810 Presence of automatic (implantable) cardiac defibrillator; Z85.46 Personal history of malignant neoplasm of prostate; I25.2 Old myocardial infarction; Z92.3 Personal history of irradiation; Z88.1 Allergy status to other antibiotic agents; Z79.4 Long term (current) use of insulin; Z79.899 Other long term (current) drug therapy; Z79.51 Long term (current) use of inhaled steroids; Z68.30 Body mass index [BMI] 30.0-30.9, adult; Z95.820 Peripheral vascular angioplasty status with implants and grafts; Z83.3 Family history of diabetes mellitus; Z82.49 Family history of ischemic heart disease and other diseases of the circulatory system; Z80.3 Family history of malignant neoplasm of breast; Z86.79 Personal history of other diseases of the circulatory system; Y92.9 Unspecified place or not applicable
CPT/HCPCS: 70450; 71045; 71046; 73620; 74018; 74174; 74230; 80048; 80053; 80076; 81003; 81015; 82140; 82248; 82330; 82805; 82962; 83010; 83036; 83615; 83735; 83880; 83935; 84100; 84132; 84300; 84302; 84478; 84484; 85014; 85018; 85025; 85027; 85379; 85384; 85610; 85730; 86850; 86900; 86901; 86920; 87040; 87070; 87077; 87154; 87186; 87205; 92610; 92611; 93005; 93306; 93970; 93971; 94002; 94003; 94640; 95813; 95816; 96365; 96366; 97116; 97162; 97167; 97530; 99285; J2354; P9016; P9047; P9059; Q9950; Q9967

== ENCOUNTER 2025-01-08 13:39 | Inpatient (IN) | payer OTHER, SELFPAY ==
--- NOTE | 2025-01-08 12:57 | HPS.HSE ---
Family Physician
-
Family Physician: INTERVIEWE UNKNOWN - PT NOT
Chief Complaint
-
dyspnea
History of Present Illness
74yo M with liver cirrhosis, COPD, radiation proctitis, CKD, VT s/p ICD, CAD s/p CABG, HFrEF, PAD, DM, HLD came with rectal bleeding 2/2 most likely radiation proctitis and with MARIA DOLORES, s/p flex sigmoidoscopy with multiple bleeding colonic angioectasia
found on 12/27/24, developed CHF exacerbation and shock with epistaxis 2/2 hepatic coagulopathy. Admitted to ICU on 01/01/25 due to hepatic encephalopathy and intubated, s/p EGD on 01/02/25 with multiple duodenal angioectasias. ID started on Merrem
2/2 Hx of pseudomonas bacteremia. Developed a right gastrocnemius vein thrombosis. IVC filter considered but not done. Initially remained not following commands after cessation of sedation, but became more awake on 01/07/25, so extubation was done
with family declining re-intubation if needed. Patient developed worsening respiratory acidosis, apparently not tolerating extubation, so family signed for hospice: explained that it will incorporate cessation of active medical mgmt except of
medications for dyspnea, anxiety and avoiding diagnostic procedures - invasive and noninvasive, family is agreeable with approach
Medical History
Past Medical History
Past Medical History: Reports Other
Additional Past Medical History:
see above
Past Surgical History: Reports Other
Additional Past Surgical History:
see above
Social History
Tobacco: Former Smoker
Alcohol: Former
Drug: None
Family History
Family History: Not pertinent
Allergies / Home Medications
Allergies reflects when Allergies were last updated in [employer]
Home Medications with original date entered in [employer]
Allergy/Medication List:
Allergies
Allergy/AdvReac Type Severity Reaction Status Date / Time
erythromycin base Allergy contraindicated Verified 12/21/24 10:46
(Erythromycin Base) (see
comment)
Home Medications
ascorbic acid (vitamin C) 500 mg tablet (Vitamin C) 500 mg PO DAILY Supplement 09/25/18
aspirin 81 mg tablet,delayed release 81 mg PO HS Blood clot prevention/tx ##0 08/07/20
folic acid 400 mcg tablet 0.4 mg PO HS Supplement ##0 08/07/20
furosemide 80 mg tablet 80 mg PO BID@0800,1600 30 days #60 tabs 11/24/24
insulin lispro 100 unit/mL subcutaneous pen (Humalog KwikPen (U-100) Insulin) 5 unit (0.05 mL) SC AC with meals 30 days #90 ea 11/24/24
rifaximin 550 mg tablet (Xifaxan) 550 mg PO BID 30 days #60 tabs 11/24/24
guaifenesin 600 mg tablet, extended release 12 hr (Mucinex) 600 mg PO BID Congestion 12/02/24
tiotropium bromide 2.5 mcg/actuation mist for inhalation (Spiriva Respimat) 2 puff inhalation R DAILY Lung/Breathing Issues 12/02/24
albuterol sulfate 90 mcg/actuation aerosol inhaler 2 puff inhalation R QIDPRN PRN sob 12/26/24
ferrous sulfate 325 mg (65 mg iron) tablet 325 mg PO Q48H Supplement 12/26/24
fluticasone propionate 230 mcg-salmeterol 21 mcg/actuation HFA inhaler (Advair HFA) 2 puff inhalation R BID Lung/Breathing Issues 12/26/24
lactulose 10 gram/15 mL oral solution 10 g PO BID-TID Liver Issues 12/26/24
metolazone 2.5 mg tablet 2.5 mg PO DAILY Fluid Retention/Swelling 12/26/24
midodrine 5 mg tablet 5 mg PO BID Hypotension 12/26/24
therapeutic multivitamin 1 tab PO QPM Supplement 12/26/24
Review of Systems
-
Unable to obtain full review of systems at this time due to: Acuity
Physical Exam
Physical Exam
General: No Apparent Distress, Comfortable and Respiratory Distress
HEENT: NormoCephalic, Anicteric and Moist mucous membranes
Respiratory: Rales and Crackles; No Wheezes
Cardiac: S1/S2, Regular Rhythm and Tachycardia
GI: Soft, Non Tender and Distended
Genito-urinary: Bloody Urine and Chávez
Musculoskeletal: No Clubbing, No Cyanosis, Edema, Left Lower Extremity and Edema, Right Lower Extremity
Skin: Warm
Neuro: Sedated
Psych: Calm
Data Reviewed
-
Old Records: Reviewed
Impression/Plan
-
A/P:
#Acute hypoxic hypercapnic respiratory failure
#Acute hepatic encephalopathy
#Acute toxic metabolic encephalopathy 2/2 hypercarbia
#Diarrhea 2/2 lactulose
#Hematuria
#Possible pseudomonas pneumonia with septic shock
#COagulopathy 2/2 liver cirrhosis
#right gastrocnemius vein thrombosis - acute RLE DVT
#MARIA DOLORES on CKD stage 3a
#Radiation proctitis with Hx of RT due to prostate CA
#Acute blood loss anemia 2/2 GIB
#Liver cirrhosis with transaminitis
#Hyponatremia
#Hypokalemia
#DM type 2 with nephropathy
#Acute on chronic HFrEF exacerbation
#Non-ischemic myocardial injury vs type 2 [place] 2/2 shock
#Stage II pressure injury on sacrum; present on admission
#FLO
#PAD s/p endarterectomy
#CAD s/p CABG
#COPD, not in exacerbation
#Chronic hypotension 2/2 liver cirrhosis
#VT on ICD
Hospice care
I have spent at least 60min of critical care time reviewing chart, test rtesults, communication with consultants and providing direct patient care
--- NOTE | 2025-01-08 15:00 | PTCARENOTE ---
Follow up thru day with family and at bedside. Continue to reinforce teaching and plan of cares. Updated assessment and vital signs ongoing. Family in discussion thru morning with hospitaqlist team and dog boarder team. Now end of life
cares.Transition to comfort and then discharge and taken over by hospice. Keep oin ICU as per plan with hospitalist and hospice team. Reinforce with family possible need for transfer to hospice floor if bed is needed. Continue ongoing supportive
cares.
[2025-01-08 16:04] VITALS: BP 60/29
--- NOTE | 2025-01-08 17:13 | PTCARENOTE ---
Complete bed bath skin cares. Oral cares and pulmonary toilet. Family in and out at bedside. Continue to offer supportive cares. Respirations shallow but relaxed. Family believes patient peaceful and comfortable. Continue emotional support and
comfort measures.
--- NOTE | 2025-01-08 18:48 | W.PN.DEATH ---
Pronouncement of
-
Called to see patient to pronounce.
No spontaneous heart tones or respirations noted.
Patient not responsive to verbal stimuli.
Patient is pronounced .
Time of : 18:19
Date of : 01/08/25
Cause of : Pneumonia
Family Notified: Yes
--- NOTE | 2025-01-08 19:16 | PTCARENOTE ---
Patient pronounced in ICU. Family at bedside, emotional support ongoing. Hospitalist team notified and pronounced. Calender Supervisor and gift of life team notified. Body to be prepared and postmortem cares to be provided.
--- NOTE | 2025-01-08 20:49 | PTCARENOTE ---
Post[place] care provided. [place] [facility] [place]
--- NOTE | 2025-01-09 07:14 | W.DCSUMMARY ---
Discharge Summary
Discharge Data
Date of Admission: 01/08/25
Date of Discharge: 01/08/25
-
Pending Results: No
Hospital Course
74yo M with liver cirrhosis, COPD, radiation proctitis, CKD, VT s/p ICD, CAD s/p CABG, HFrEF, PAD, DM, HLD came with rectal bleeding 2/2 most likely radiation proctitis and with MARIA DOLORES, s/p flex sigmoidoscopy with multiple bleeding colonic angioectasia
found on 12/27/24, developed CHF exacerbation and shock with epistaxis 2/2 hepatic coagulopathy. Admitted to ICU on 01/01/25 due to hepatic encephalopathy and intubated, s/p EGD on 01/02/25 with multiple duodenal angioectasias. ID started on Merrem
2/2 Hx of pseudomonas bacteremia. Developed a right gastrocnemius vein thrombosis. IVC filter considered but not done. Initially remained not following commands after cessation of sedation, but became more awake on 01/07/25, so extubation was done
with family declining re-intubation if needed. Patient developed worsening respiratory acidosis, apparently not tolerating extubation, so family signed for hospice: explained that it will incorporate cessation of active medical mgmt except of
medications for dyspnea, anxiety and avoiding diagnostic procedures - invasive and noninvasive, family is agreeable with approach. Patient at 18:19 on 01/08/25
I have spent at least 60min of critical care time reviewing chart, test results, communication with consultants and providing direct patient care
Patient was managed for:
#Acute hypoxic hypercapnic respiratory failure
#Acute hepatic encephalopathy
#Acute toxic metabolic encephalopathy 2/2 hypercarbia
#Diarrhea 2/2 lactulose
#Hematuria
#Possible pseudomonas pneumonia with septic shock
#COagulopathy 2/2 liver cirrhosis
#right gastrocnemius vein thrombosis - acute RLE DVT
#MARIA DOLORES on CKD stage 3a
#Radiation proctitis with Hx of RT due to prostate CA
#Acute blood loss anemia 2/2 GIB
#Liver cirrhosis with transaminitis
#Hyponatremia
#Hypokalemia
#DM type 2 with nephropathy
#Acute on chronic HFrEF exacerbation
#Non-ischemic myocardial injury vs type 2 [place] 2/2 shock
#Stage II pressure injury on sacrum; present on admission
#FLO
#PAD s/p endarterectomy
#CAD s/p CABG
#COPD, not in exacerbation
#Chronic hypotension 2/2 liver cirrhosis
#VT on ICD
Discharge Plan
-
Patient Disposition:
Date/Time
Date/Time: 01/08/25 18:19
Discharge Date and Time
Discharge Date/Time: 01/08/25 20:51
Print Language: ITALIAN
== END 2025-01-08 20:51 | disposition expired | DRG 951 ==
LOC: ICU 13:39
PROVIDERS: ADMITTING PHYSICIAN Internal Medicine
DX: Z51.5 Encounter for palliative care (principal); J18.9 Pneumonia, unspecified organism; G92.8 Other toxic encephalopathy; J96.01 Acute respiratory failure with hypoxia; J96.02 Acute respiratory failure with hypercapnia; I50.23 Acute on chronic systolic (congestive) heart failure; N17.9 Acute kidney failure, unspecified; E87.1 Hypo-osmolality and hyponatremia; J44.0 Chronic obstructive pulmonary disease with (acute) lower respiratory infection; E87.29 Other acidosis; D62 Acute posthemorrhagic anemia; I5A Non-ischemic myocardial injury (non-traumatic); K62.5 Hemorrhage of anus and rectum; Z87.891 Personal history of nicotine dependence; K76.82 Hepatic encephalopathy; N18.31 Chronic kidney disease, stage 3a; E11.22 Type 2 diabetes mellitus with diabetic chronic kidney disease; L89.152 Pressure ulcer of sacral region, stage 2; E87.6 Hypokalemia; F41.9 Anxiety disorder, unspecified; I82.461 Acute embolism and thrombosis of right calf muscular vein; I95.89 Other hypotension; K74.60 Unspecified cirrhosis of liver; R04.0 Epistaxis; K55.20 Angiodysplasia of colon without hemorrhage